=== PATIENT | female | born 2000 | race Caucasian/White ===

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

== ENCOUNTER → 2022-10-17 | Outpatient (CLI) | payer BC, SELFPAY ==
--- NOTE | 2022-10-17 16:37 | CT_ITS ---
STUDY: CT MAXILLOFACIAL SINUSES REASON FOR EXAM: Female, 21 years old. CHRONIC SINUSITIS RADIATION DOSAGE (If Supplied By Facility): CTDIvol = ( 33.06 ) mGy, DLP = ( 776.00 ) mGycm TECHNIQUE: The patient was scanned in a multi detector CT scanner. High resolution axial imaging was performed without the administration of intravenous contrast material. Sagittal and coronal images were reconstructed. Individualized dose optimization techniques were used for this CT. COMPARISON: None. FINDINGS: FRONTAL SINUSES: Normal aeration, without mucosal inflammatory disease. ETHMOIDAL SINUSES: Normal aeration, without mucosal inflammatory disease. MAXILLARY SINUSES: Minimal mucosal thickening of the maxillary sinuses bilaterally. SPHENOIDAL SINUSES: Normal aeration, without mucosal inflammatory disease. There is patency of the bilateral maxillary infundibuli with normal uncinate processes, ethmoid bullae, and hiatus semilunaris. Normal bilateral middle turbinates. Normal bilateral inferior turbinates. There is a right sided nasal septal deviation, but without a nasal septal spur. There is patency of the bilateral nasal airways. The visualized osseous structures are normal. The visualized bilateral orbital contents are normal. CT/Sinus/Facial Bone IMPRESSION: Minimal mucosal thickening of the maxillary sinuses bilaterally. Nasal septal deviation towards the right side of the midline. Electronically Signed: Yrn Paredes MD at 12:32 EDT ,
== END | disposition home or self-care (01) ==
LOC: CT 16:36
PROVIDERS: PCP Physician Assistant; Referring Provider Otolaryngology; Visit Provider Otolaryngology
DX: J32.9 Chronic sinusitis, unspecified (principal)
CPT/HCPCS: 70486

== ENCOUNTER → 2024-11-19 | Outpatient (CLI) | payer SELFPAY ==
[2024-11-19 12:12] LABS: Absolute Lymphocyte Count 1.42 X10^3/uL (0.83-4.51); Absolute Neutrophil Count 5.9 X10^3/uL (2.0-7.7); Basophil# 0.03 X10^3/uL; Basophil% 0.4 % (0-1); Eosinophil# 0.06 X10^3/uL; Eosinophils% 0.7 % (0-5); Hematocrit 38.9 % (37-47); Hemoglobin 13.7 g/dL (12.0-15.0); Lymphocyte # 1.42 X10^3/ul (0.83-4.51); Lymphocyte % 17.2 % (19-41); Mean Corp Hgb Conc 35.2 g/dL (32-36); Mean Corpuscular Hgb 30.5 pg (27.0-32.0); Mean Corpuscular Volume 86.6 fL (81-99); Mean Platelet Vol. 9.4 fl (6.2-12.0); Monocyte# 0.83 X10^3/uL; NRBC Flagged by Analyzer 0 % (0-5); Neutrophil # 5.89 X10^3/uL (2.7-7.7); Neutrophil % 71.3 % (47-70); Platelet Count 355 K/mm3 (150-450); RBC Distribution Width CV 12.2 % (11.6-14.6); RBC Distribution Width SD 38.7 fl (35.1-43.9); Red Blood Count 4.49 M/mm3 (4.2-5.4); White Blood Count 8.3 K/mm3 (4.4-11.0)
[2024-11-19 12:37] LABS: HIV Nonreactive (Nonreactive); Hepatitis B Surface Antigen Nonreactive (Nonreactive); Hepatitis C Antibody Nonreactive (Nonreactive); Rubella IgG REAC (Nonreactive); Syphilis Antibodies Nonreactive (Nonreactive)
[2024-11-21 10:08] LABS: Chlamydia By Nucleic Acid AMP Negative (Negative); Gonococcus By Nucleic Acid AMP Negative (Negative)
== END | disposition home or self-care (01) ==
PROVIDERS: Nurse Practitioner Women's Health; PCP Physician Assistant; Referring Provider Advanced Practice Midwife; Visit Provider Advanced Practice Midwife
DX: O99.280 Endocrine, nutritional and metabolic diseases complicating pregnancy, unspecified trimester (principal); E06.3 Autoimmune thyroiditis; Z3A.00 Weeks of gestation of pregnancy not specified
CPT/HCPCS: 36415; 84439; 84443; 85025; 86703; 86762; 86780; 86803; 86850; 86900; 86901; 87086; 87088; 87340; 87491; 87591

== ENCOUNTER → 2024-12-21 | Outpatient (CLI) | payer MEDICAID, SELFPAY ==
[2024-12-21 18:18] LABS: Thyroid Stim Hormone (TSH) 0.814 uIU/mL (0.300-4.200)
== END | disposition home or self-care (01) ==
LOC: LAB 15:53
PROVIDERS: PCP Physician Assistant; Referring Provider Advanced Practice Midwife; Visit Provider Advanced Practice Midwife
DX: E06.3 Autoimmune thyroiditis (principal)
CPT/HCPCS: 36415; 84443

== ENCOUNTER 2024-12-23 11:39 | Outpatient (CLI) | payer MEDICAID, SELFPAY ==
[2024-12-23] MEDS: Ondansetron 4 MG/2 ML Vial IV (12:04)
[2024-12-23] MEDS: 0.9% NaCl Peripheral Flush Adult IV (12:04)
[2024-12-23] MEDS: Dextrose 5%-Lactated Ringers 1,000 ML 999 ML IV (12:08)
[2024-12-23 12:09] VITALS: BP 133/87; PULSE 95; RESP 16; TEMP 35.7; O2SAT 98; BMI 27.4
[2024-12-23 13:20] VITALS: BP 125/65; PULSE 73; RESP 16; TEMP 35.9
--- OUTSIDE RECORDS SUMMARY | 2024-12-23 20:54 | XMS RPT_ITS | CCD ---
Author Organization [facility] Care Team Providers Care Spirits Model Name Role Phone ÁNGELA FERMIN Unavailable Unavailable HILLS, ÁNGELA Unavailable Unavailable JENY, ÁNGELA Unavailable Unavailable ANNA MARIE SALES Admitting Unavailable ANNA MARIE SALES Attending Unavailable ANNA MARIE SALES Primary Care Unavailable JENY, ÁNGELA Consulting Unavailable PROVIDER, UNKNOWN Consulting Unavailable NATALIA LIANG Admitting Unavailable NATALIA LIANG Attending Unavailable NATALIA LIANG Primary Care Unavailable JENY, ÁNGELA Consulting Unavailable PROVIDER, UNKNOWN Consulting Unavailable Anna Marie Sales PA-C Unavailable Anna Marie Sales PA-C Unavailable Dr. Oj Ordonez MD Unavailable [phone] Dermatology Provider Unavailable Unavailable Dr. Natalia Liang MD. Unavailable ENT Provider Unavailable Unavailable Ady SMITH, Dr. Pablo Nielsen Unavailable Lloyd Pulido MD Unavailable Elisa REINOSO, Kristin Unavailable Farshad Bustamante MD Unavailable Maya Maxwell MA Unavailable Unavailable Gogoi (scribe), Hemanta Unavailable Unavaila ble Irene Espinoza LPN Unavailable Unavailable Jeny MARTINEZ, Ángela D Unavailable [phone] Rich MARTINEZ, Frederic Noland Unavailable Abrahan REINOSO, Sandra Unavailable Unavailable Mandi Maldonado RN Unavailable Marine LUNA, Conchita Bazzi Unavailable Unavailable Lacy APPLICATION DBA, Lloyd Ramirez Unavailable Unavailab Sandra Dewey MA Unavailable Unavailable Vess APPLICATION DBA, Jaziel Dawn Unavailable Unavailable Wengerchery BRADYN, Rita Unavailable Unavailabl e Unavailable Unavailable Unavailable Unavailable Unavailable Primary Care Provider Unavailabl ELIJAH Patrick Attending Unavailable ELIJAH LYMAN Referring Unavailable ELIJAH LYMAN Attending Unavailable Madina Jules LPN Unavailable Unavailabl e Sales PATRICIA, Anna Marie Primary Care Provider Henrry PA, Anna Marie Referring Provider [phone] Priscila FELIPE-CMechelle Attending Provider Vlad HIGGINS, Bety Attending Provider Bety Chu CNM Referring Provider [phone] Sales PATRICIA, Anna Marie Referring Unavailable Sales PA, Anna Marie Primary Care Unavailable Bety Chu Attending Unavailable Sales PA, Anna Marie Attending Unavailable Sales PA, Anna Marie Primary Care Unavailable Sales PA, Anna Marie Primary Care Unavailable Sales PA, Anna Marie Referring Unavailable Mechelle Francois NP Attending Unavailable Bety Chu Attending Unavailable Sales PA, Anna Marie Primary Care Unavailable Bety Chu Referring Unavailable Bety Chu Referring Unavailable Bety Chu Attending Unavailable Sales PA, Anna Marie Primary Care Unavailable Bety Chu Referring Unavailable Sales PA, Anna Marie Primary Care Unavailable Bety Chu Attending Unavailable Sales PA, Anna Marie Primary Care Unavailable Bety Chu Attending Unavailable Sales PATRICIA, Anna Marie Referring Unavailable Medications Current Medications Medication Drug Class(es) Dates Sig (Normalized) Sig (Original) apremilast 30 mg oral tablet (13 sources) Otezla 30 mg tab let ; 1 daily (30 mg) cephalexin 500 mg oral capsule (2 sources) Cephalosporin Antibacterial Start: 12-16-2024 cephALEXin 500 mg capsule ; 1 (one) capsule TID for 7 days Quantity: 21 {Capsule} Refills: 0 Ordered: 16-Dec-2024 JUAN Sales Start: 16-Dec-2024 Comments: Pt is 11 weeks Comment on above: Pt is 11 weeks pregn ant cetirizine hydrochloride 10 mg oral tablet (20 sources) Histamine-1 Receptor Antagonist take 1 tablet by mouth once daily ZyrTEC Allergy 10 MG Oral Tablet ; 1 daily (10 MG) cholecalciferol 0.01 mg oral capsule (14 sources) Vitamin D Start: 11-03-2024 take 1 capsule by mouth once daily Cholecalciferol (Vitamin D3) 10 mcg (400 unit) capsule Active 20 ug PO daily November 03, 2024 12:00am Vitamin D3 25 mc g (1,000 unit) capsule ; 1 daily (25 mcg (1,000 uni) docosahexaenoic acid 200 mg oral capsule (1 source) Start: 11-03-2024 Docosahexaenoi c Acid ( Dha) 200 mg capsule Active mg PO November 03, 2024 12:00am levothyroxine sodium 0.025 mg oral tablet (20 sources) l-Thyroxine Start: 11-19-2024 Levothyroxine (Levo-T) 25 mcg tablet Active 50 ug PO daily November 19, 2024 8:56am Start: 11-03-2024 End: 11-19-2024 Levothyroxine (Levo-T) 25 mc g tablet Discontinued 25 ug PO daily November 03, 2024 12:00am November 19, 2024 8:56am Start: 07-13-2024 inject 1 capsule by subcutaneous injection once daily levothyroxine 50 mcg capsule ; 1 (one) Capsule daily for 0 days Quantity: 90 {Capsule} Refills: 1 Ordered: 13-Jul-2024 JUAN Villanueva Start: 13-Jul-2024 Comments: sub with tablets if cheaper Start: 07-09-2024 inject 1 capsule by subcutaneous injection once daily levothyroxine 50 mcg capsule ; 1 (one) Capsule daily for 0 days Quantity: 90 {Capsule} Refills: 1 Ordered: 09-Jul-2024 JUAN Sales Start: 09-Jul-2024 Comments: sub with tablets if cheaper Start: 10-08-2023 End: 06-12-2024 inject 1 capsule by subcutaneous injection once daily levothyroxine 50 mcg capsule ; 1 (one) Capsule daily for 0 days Quantity: 30 {Capsule} Refills: 0 Ordered: 12-Jun-2024 ARLETH Jules Start: 08-Oct-2023 End: 12-Jun-2024 Status: Inactive Comments: sub with tablets if cheaper Start: 04-01-2023 inject 1 capsule by subcutaneous injection once daily levothyroxine 50 mcg capsule ; 1 (one) Capsule daily for 0 days Quantity: 30 {Capsule} Refills: 5 Ordered: 01-Apr-2023 MD Farshad Bustamante Start: 01-Apr-2023 Comments: sub with tablets if cheaper Start: 12-08-2022 levothyroxine 100 mcg cap 12/08/2022 Active Comment on above: sub with tablets if cheaper loratadine 10 mg oral tablet (20 sources) Start: 016 take 1 tablet by mouth once daily Loratadine (Claritin) 10 MG tablet Active 10 mg PO DAILY November 05, 2015 12:00am ondansetron 4 mg disintegrating oral tablet (1 source) Serotonin-3 Receptor Antagonist Start: take 1 tablet by mouth every six hours as needed for nausea and vomiting Ondansetron 4 mg tablet,disintegratin g Active 4 mg PO EVERY 6 HOURS as needed for nausea and vomiting November 19, 2024 12:00am promethazine hydrochloride 25 mg rectal suppository (1 source) Phenothiazine Start: Promethazine 25 mg suppository Active 25 mg RC EVERY 4-6 HOURS as needed for nausea and vomiting December 21, 2024 3:27pm ruxolitinib (13 sources) ruxolitinib 1.5 % topical cream ; (1.5 %) triamcinolone acetonide 0.91227 mg/mg topical ointment (20 sources) Corticosteroid Start: End: triamcinolone (KENALOG) 0.025 % ointment Indications: Dyspareunia in female Apply to affected area two times a day. 15 g 03/30/2024 04/29/2024 Active Start: 12-08-2021 Triamcinolone Acetonide 0.1 % External Cream ; 1 (one) Application to affected areas TID prn for 0 days Quantity: 60 {Gram} Refills: 0 Ordered: 08-Dec-2021 ALEXA Longoria Start: 08-Dec-2021 Start: 11-13-2013 End: 02-09-2015 TRIAMCINOLONE ACETONIDE, 0.0 25% (External Cream) ; 1 (one) application(s) four times daily for 0 days Quantity: 80 {gram(s)} Refills: 0 Ordered: 09-Feb-2015 JEREMY Hawthorne Start: 13-Nov-2013 End: 09-Feb-2015 Status: Inactive vitamin b6 10 mg oral tablet (1 source) Start: 11-03-2024 take 1 tablet by mouth once daily Pyridoxine (Vitamin B6) 10 mg tablet Active 10 mg PO daily November 03, 2024 12:00am Completed/Discontinued Medications Medication Drug Class(es) Dates Sig (Normalized) Sig (Original) [id number] 200 actuat albuterol 0.09 mg/actuat metered dose inhaler (20 sources) beta2-Adrenergic Agonist Start: 04-04-2016 End: 10-18-2016 take 2 puff(s) by inhalation every four to six hours as needed Ventolin HFA 108 (90 Base) MCG/ACT Inhalation Aerosol Solution ; 2 (two) puff(s) puff(s) every 4-6hrs prn for 0 days Quantity: 1 {Inhaler} Refills: 1 Ordered: 18-Oct-2016 JEREMY Hawthorne Start: 04-Apr-2016 End: 18-Oct-2016 Status: Inactive amoxicillin 50 mg/ml oral suspension (20 sources) Penicillin-class Antibacterial Start: 04-30-2012 End: 05-10-2012 AMOXICILLIN, 250MG/5ML (Oral Suspension Reconstituted) ; 2 (two) Teaspoon(s) three times daily for 10 days Quantity: 300 {Milliliter} Refills: 0 Ordered: 30-Apr-2012 MD Farshad Bustamante Start: 30-Apr-2012 End: 10-May-2012 Status: Inactive Start: 07-07-2010 End: 07-17-2010 take 1 tablet by mouth three times daily AMOXICILLIN, 500MG (Oral Tablet) ; 1 Tab three times daily for 10 days Quantity: 30 {Tab} Refills: 0 Ordered: 06-Sep-2010 MD Farshad Bustamante Start: 07-Jul-2010 End: 17-Jul-2010 Status: Inactive amoxicillin 875 mg / clavulanate 125 mg oral tablet (20 sources) Penicillin-class Antibacterial Start: 07-31-2022 End: 08-07-2022 take 1 tablet by mouth twice daily Amoxicillin-Pot Clavulanate 875-125 MG Oral Tablet ; 1 (one) Tablet two times daily for 7 days Quantity: 14 {Tablet} Refills: 0 Ordered: 31-Jul-2022 JUAN Villanueva Start: 31-Jul-2022 End: 07-Aug-2022 Status: Inactive Start: 01-29-2022 End: 02-05-2022 take 1 tablet by mouth twice daily Amoxicillin-Pot Clavulanate 875-125 MG Oral Tablet ; 1 (one) Tablet twice a day for 7 days Quantity: 14 {Tablet} Refills: 0 Ordered: 29-Jan-2022 JUAN Villanueva Start: 29-Jan-2022 End: 05-Feb-2022 Status: Inactive Start: 08-18-2019 End: 08-28-2019 take 1 tablet by mouth twice daily at mealtime Amoxicillin-Pot Clavulanate 875-125 MG Oral Tablet ; 1 (one) Tablet twice daily with food for 10 days Quantity: 20 {Tablet} Refills: 0 Ordered: 18-Aug-2019 JUAN Fermin Start: 18-Aug-2019 End: 28-Aug-2019 Status: Inactive Start: 06-20-2018 End: 06-30-2018 take 1 tablet by mouth twice daily at mealtime Augmentin 875-125 MG Oral Tablet ; 1 Tab two times daily for 10 days Quantity: 20 {Tablet} Refills: 0 Ordered: 20-Jun-2018 JUAN Sales Start: 20-Jun-2018 End: 30-Jun-2018 Status: Inactive Comments: Take with food Start: 05-30-2011 End: 06-26-2011 AUGMENTIN, 250-62.5MG/5ML (O ral Suspension Reconstituted) ; 2 (two) teaspoon(s) BID for 10 days Quantity: 200 {Milliliter} Refills: 0 Ordered: 26-Jun-2011 ARLETH Nam Start: 30-May-2011 End: 26-Jun-2011 Status: Inactive Comment on above: Take with food azithromycin 500 mg oral tablet (20 sources) Macrolide Antimicrobial Start: 04-22-20 End: 04-25-20 take 1 tablet by mouth once daily Azithromycin 500 MG Oral Tablet ; 1 (one) Tablet daily for 3 days Quantity: 3 {Tablet} Refills: 0 Ordered: 22-Apr-2018 Start: 22-Apr-2018 End: 25-Apr-2018 Status: Inactive Start: 05-07-2012 End: 08-01-2012 ZITHROMAX, 200MG/5ML (Oral S uspension Reconstituted) ; 8 milliliters once on day one then 4 milliliters daily for 4 days for 0 days Quantity: 24 {Milliliter} Refills: 0 Ordered: 01-Aug-2012 JUAN Sales Start: 07-May-2012 End: 01-Aug-2012 Status: Inactive cefdinir 300 mg oral capsule (20 sources) Cephalosporin Antibacterial Start: 02-20-2021 End: 03-02-2021 take 1 capsule by mouth twice daily Cefdinir 300 MG Oral Capsule ; 1 (one) Capsule twice daily for 10 days Quantity: 20 {Capsule} Refills: 0 Ordered: 20-Feb-2021 JUAN Sales Start: 20-Feb-2021 End: 02-Mar-2021 Status: Inactive clobetasol propionate 0.0005 mg/mg topical ointment (2 sources) Corticosteroid Start: 03-30-2024 End: 03-30-2024 clobetasol (TEMOVATE) 0.05 % ointment Indications: Dyspareunia in female Apply 1 application to affected area once daily. 30 g 1 03/30/2024 03/30/2024 Discontinued doxycycline monohydrate 100 mg oral tablet (20 sources) Tetracycline-class Drug Start: 06-09-2021 End: 06-19-2021 take 1 tablet by mouth twice daily Doxycycline Monohydrate 100 MG Oral Tablet ; 1 (one) Tablet BID for 10 days Quantity: 20 {Tablet} Refills: 0 Ordered: 09-Jun-2021 JUAN Sales Start: 09-Jun-2021 End: 19-Jun-2021 Status: Inactive Ethinyl Estradiol / Levonorgestrel (20 sources) Progestin, Estrogen, Progestin-containing Intrauterine Device Start: 11-28-2022 End: 07-23-2023 Aviane 0.1 mg-20 mcg tablet ; 1 (one) Tablet daily for 0 days Quantity: 1 {Tablet} Refills: 11 Ordered: 23-Jul-2023 ARLETH Pérez Start: 28-Nov-2022 End: 23-Jul-2023 Status: Inactive Ethinyl Estradiol / norgestimate (20 sources) Progestin, Estrogen Start: 04-02-2024 End: 12-15-2024 Sprintec (28) 0.25 mg-0.035 mg tablet ; 1 (one) tablet daily for 0 days Quantity: 3 {Packet} Refills: 1 Ordered: 15-Dec-2024 Start: 02-Apr-2024 End: 15-Dec-2024 Status: Inactive Start: 04-02-2024 Sprintec (28) 0.25 mg-35 mcg tablet ; 1 (one) tablet daily for 0 days Quantity: 3 {Packet} Refills: 1 Ordered: 02-Apr-2024 JUAN Sales Start: 02-Apr-2024 Start: 10-17-2023 Sprintec (28) 0.25 mg-35 mcg tablet ; 1 (one) tablet daily for 0 days Quantity: 1 {Packet} Refills: 1 Ordered: 17-Oct-2023 MD Alex Stock Start: 17-Oct-2023 Start: 10-16-2023 Sprintec (28) 0.25 mg-35 mcg tablet ; 1 (one) tablet daily for 0 days Quantity: 1 {Packet} Refills: 2 Ordered: 16-Oct-2023 MD Alex Stock Start: 16-Oct-2023 Start: 10-16-2023 Sprintec (28) 0.25 mg-35 mcg tablet ; 1 (one) tablet daily for 0 days Quantity: 1 {Packet} Refills: 3 Ordered: 16-Oct-2023 MD Alex Stock Start: 16-Oct-2023 Start: 07-23-2023 Sprintec (28) 0.25 mg-35 mcg tablet ; 1 (one) tablet daily for 0 days Quantity: 1 {Packet} Refills: 3 Ordered: 23-Jul-2023 JUAN Sales Start: 23-Jul-2023 Start: 12-08-2022 norgestimate 0 .25 mg-ethinyl estradiol 35 mcg (STACI) 0.25-35 mg-mcg per tablet 12/08/2022 Active fluconazole 150 mg oral tablet (20 sources) Azole Antifungal Start: 06-09-2021 End: 12-08-2021 take 1 tablet by mouth once Diflucan 150 MG Oral Tablet ; 1 (one) Tablet one time dose for 0 days Quantity: 1 {Tablet} Refills: 0 Ordered: 08-Dec-2021 ARLETH House Start: 09-Jun-2021 End: 08-Dec-2021 Status: Inactive fluticasone propionate 0.05 mg/actuat metered dose nasal spray (20 sources) Corticosteroid Start: 11-06-2016 End: 01-28-2018 Fluticasone Propionate 50 MCG/ACT Nasal Suspension ; 2 (two) sprays each nostril twice daily fro 4 days, then use 2 sprays per nostril once daily for 0 days Quantity: 1 {Bottle} Refills: 11 Ordered: 28-Jan-2018 ARLETH Nam Start: 06-Nov-2016 End: 28-Jan-2018 Status: Inactive montelukast 10 mg oral tablet (20 sources) Leukotriene Receptor Antagonist Start: 08-05-2020 End: 06-12-2024 montelukast 10 mg tablet ; 1 (one) Tablet daily for 0 days Quantity: 30 {Tablet} Refills: 11 Ordered: 12-Jun-2024 ARLETH Jules Start: 05-Aug-2020 End: 12-Jun-2024 Status: Inactive predniSONE 10 mg oral tablet (20 sources) Start: 04-22-2018 End: 04-27-2018 take 1 tablet by mouth twice daily PredniSONE 10 MG Oral Tablet ; 1 (one) Tablet two times daily for 5 days Quantity: 10 {Tablet} Refills: 0 Ordered: 22-Apr-2018 Start: 22-Apr-2018 End: 27-Apr-2018 Status: Inactive Promethazine 25 mg suppository (1 source) Start: 12-11-2024 End: 12-21-2024 Promethazine 25 mg suppository Discontinued 25 mg RC EVERY 4-6 HOURS as needed for nausea and vomiting December 11, 2024 12:00am December 21, 2024 3:27pm sulfamethoxazole 800 mg / trimethoprim 160 mg oral tablet (20 sources) Dihydrofolate Reductase Inhibitor Antibacterial, Sulfonamide Antimicrobial Start: 06-08-2019 End: 06-11-2019 take 1 tablet by mouth twice daily Bactrim DS 800-160 MG Oral Tablet ; 1 (one) Tablet BID for 3 days Quantity: 6 {Tablet} Refills: 0 Ordered: 08-Jun-2019 JUAN Sales Start: 08-Jun-2019 End: 11-Jun-2019 Status: Inactive Problems Active Problems Problem Classification Problem Date Documented Da te Episodic/Chronic Abdominal pain (20 sources) Acute abdominal pain; Translations: [Unspecified abdominal pain] 08-18-2019 Episodic Acute bronchitis (20 sources) Acute bronchitis; Translations: [Acute bronchitis, unspecified] 11-13-2013 Episodic Administrative/social admission (20 sources) Issue of repeat prescriptions 04-25-2016 Episodic Allergic reactions (20 sources) Contact dermatitis; Translations: [Unspecified contact dermatitis, unspecified cause] Onset: 12-22-2024 11-13-2013 Episodic Comment on above: opzelura cream for b reak outs Asthma (20 sources) Allergic asthma; Translations: [Unspecified asthma, uncomplicated] 11-13-2013 Chronic Chronic obstructive pulmonary disease and bronchiectasis (20 sources) Bronchitis; Translations: [Bronchitis, not specified as acute or chronic] 11-13-2013 Episodic Disorders of teeth and jaw (1 source) Loss of teeth due to extraction; Translations: [Partial loss of teeth, unspecified cause, unspecified class] 11-03-2024 Episodic Comment on above: 2022 Genitourinary symptoms and ill-defined conditions (20 sources) Urinary symptoms ; Translations: [Unspecified symptoms and signs involving the genitourinary system] 08-18-2019 Episodic Headache; including migraine (20 sources) Headache; Translations: [Headache] 04-14-2018 Episodic Immunizations and screening for infectious disease (20 sources) Autoantibody titer positive; Translations: [Other specified abnormal immunological findings in serum] 12-05-2022 Episodic Intracranial injury (20 sources) Concussion injury of body structure; Translations: [Concussion without loss of consciousness, subsequent encounter] 04-14-2018 Episodic Lymphadenitis (20 sources) Cervical lymphadenopathy; Translations: [Localized enlarged lymph nodes] 08-18-2019 Episodic Malaise and fatigue (20 sources) Fatigue; Translations: [Other fatigue] 06-12-2024 Episodic Menstrual disorders (20 sources) Irregular periods; Translations: [Irregular menstruation, unspecified] 05-01-2023 Chronic Other acquired deformities (20 sources) Scoliosis deformity of spine; Translations: [Scoliosis, unspecified] 11-28-2022 Chronic Other aftercare (20 sources) Follow-up status; Translations: [Encounter for follow-up examination after completed treatment for conditions other than malignant neoplasm] 11-13-2013 Episodic Other complications of (4 sources) High risk ; Translations: [Supervision of high risk , unspecified, unspecified trimester] 12-21-2024 Episodic Comment on above: PRR, G1, JACI 5, : Desmond Other complications of (3 sources) Vomiting of , unspecified; Translations: [Nausea and vomiting during ] Onset: 12-22-2024 12-21-2024 Episodic Other complications of (1 source) Endocrine, nutritional and metabolic diseases complicating , unspecified trimester; Translations: [Endocrine, nutritional and metabolic diseases complicating , unspecified trimester] Onset: 11-22-2024 Episodic Other complications of (1 source) Supervision of high risk , unspecified, first trimester; Translations: [Supervision of high risk , unspecified, first trimester] Onset: 12-22-2024 Episodic Other connective tissue disease (20 sources) Pain in right hand; Translations: [Pain in right hand] 11-28-2022 Episodic Other female genital disorders (4 sources) Pain in female genitalia on intercourse; Translations: [Unspecified dyspareunia] 03-11-2024 Chronic Other female genital disorders (1 source) Unspecified dyspareunia; Translations: [Dyspareunia in female] Onset: 03-20-2024 Chronic Other gastrointestinal disorders (20 sources) Pale feces; Translations: [Other fecal abnormalities] 08-18-2019 Episodic Other lower respiratory disease (20 sources) Cough; Translations: [Cough] 11-13-2013 Episodic Other non-traumatic joint disorders (20 sources) Hand joint stiff; Translations: [Stiffness of unspecified hand, not elsewhere classified] 12-08-2021 Episodic Other nutritional; endocrine; and metabolic disorders (20 sources) Weight increased; Translations: [Abnormal weight gain] 06-12-2024 Episodic Other and delivery including normal (3 sources) ; Translations: [Encounter for supervision of normal , unspecified, unspecified trimester] 12-21-2024 Episodic Comment on above: Declined genetic/car rier testing Other screening for suspected conditions (not mental disorders or infectious disease) (20 sources) Raised TSH level; Translations: [Other specified abnormal findings of blood chemistry] 05-12-2023 Episodic Other skin disorders (20 sources) Folliculitis; Translations: [Follicular disorder, unspecified] 04-14-2018 Episodic Other skin disorders (20 sources) Eruption; Translations: [Rash and other nonspecific skin eruption] 04-15-2023 Episodic Other upper respiratory disease (20 sources) Allergic rhinitis; Translations: [Allergic rhinitis, unspecified] 08-18-2019 Chronic Other upper respiratory infections (20 sources) Sinusitis; Translations: [Chronic sinusitis, unspecified] 07-23-2023 Chronic Other upper respiratory infections (20 sources) Acute pharyngitis; Translations: [Acute pharyngitis, unspecified] 11-13-2013 Episodic Otitis media and related conditions (20 sources) Acute suppurative otitis media; Translations: [Acute suppurative otitis media without spontaneous rupture of ear drum, unspecified ear] 11-13-2013 Episodic Residual codes; unclassified (20 sources) Finding of body mass index; Translations: [Body mass index (BMI) pediatric, 5th percentile to less than 85th percentile for age] 08-18-2019 Episodic Residual codes; unclassified (1 source) 12 weeks gestation of ; Translations: [12 weeks gestation of ] Onset: 12-21-2024 Episodic Residual codes; unclassified (1 source) 9 weeks gestation of ; Translations: [9 weeks gestation of ] Onset: 12-22-2024 Episodic Screening and history of mental health and substance abuse codes (20 sources) Patient encounter status; Translations: [Encounter for screening for depression] 12-08-2021 Episodic Skin and subcutaneous tissue infections (4 sources) Abscess; Translations: [Cutaneous abscess, unspecified] 12-16-2024 Episodic Sprains and strains (20 sources) Other specified sites of sprains and strains 04-14-2018 Episodic Thyroid disorders (20 sources) Nontoxic goiter, unspecified; Translations: [Goiter] Onset: 01-28-2018 04-14-2018 Chronic Comment on above: on Levo - Thyroid la bs ordered w/NOB Unclassified (20 sources) UTI - Symptoms include dysuria, urinary frequency, urinary urgency and abdominal pain, but do not include hematuria. The pain is located in the suprapubic area. The patient describes the pain as aching. Onset was sudden 1 day(s) ago. The symptoms occur constantly. The patient describes this as moderate in severity and unchanged. Associated symptoms include nausea and urinary retention, but do not include fever or chills. Note for UTI: No previous history of UTIs.Not sexually active. Period due in 8 days. 06-08-2019 Viral infection (20 sources) Unspecified viral infection 11-13-2013 Episodic Past or Other Problems Problem Classification Problem Date Documented Da te Episodic/Chronic Otitis media and related conditions (20 sources) Otitis media and related conditions 05-07-2012 Unclassified (20 sources) Well adult female - The patient feels well with minor complaints (irregular periods), has good energy level and is sleeping well. The first day of the last menstrual period was : (11/10/2022). The patient is not using any method of contraception at this time. The patient has a balanced diet and takes supplemental vitamins. The patient exercises weekly. The patient sleeps 7 hours per night. Note for Well adult female: Pt wants to start OCP due to irregular periods (27-30 days typically but occasionally will go longer to 35-42 days) and she is getting in a year. Bleeding is usually 3-5 days and pretty light. Does have some severe menstrual cramping at times too.Hit 5th digit/hand (ulnar side) on boyfriend's knee 2 months ago; still having intermittent pain with certain movements. Had some swelling right away but that resolved with ice application. 11-28-2022 Unclassified (20 sources) Cold Symptoms - Symptoms include sneezing, nasal congestion, runny nose, ear pain (left ear), scratchy throat, dry cough, general malaise (pt has been extra tired) and facial pain, but do not include wheezing, fever or headache. The onset was 5 day(s) ago. The patient describes this as moderate in severity and unchanged. Current treatment includes non-prescription cold medication. The patient has been exposed to an individual with a cough, an individual with an upper respiratory infection, an individual with similar symptoms, an individual with strep and secondhand smoke. Medical history includes seasonal allergies, recurrent sinusitis, tonsillectomy and recurrent ear infections, but patient denies history of recurrent strep pharyngitis or asthma. 07-31-2022 Unclassified (20 sources) Cold Symptoms - Symptoms include nasal congestion, runny nose, sore throat and dry cough, but do not include ear pain, fever, chills or headache. The onset was 1 week(s) ago. The patient describes this as worsening. Current treatment includes an oral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 disturb others). Pt reports that she listened to the feedback from teacher and has changed her behavior. Part of it could be the teacher and her higher expectations than last year. Currently in 4th grade at [employer]. 09-07-2010 Unclassified (20 sources) Cough - Mom states that pt started in 3 days ago with cough, congestion, watery eyes. No s/t or ear pain. Low grade fever. COughing up some yellowish green sputum and chest hursts a little when she coughs. Had these similiar symptoms over Thanksgiving but seemed to get over it on her own but since back again mom wanted checked. 07-07-2010 Unclassified (9 sources) Menstrual problems - The menstrual problems are characterized as intermenstrual bleeding (Bled last saturday until saturday morning and then it stopped; it started again at school today. Usually she is regular. First menstrual period was in the 7th grade. Mom said that she was wondering if it was from taking so much flonase - said she thought she read it was a side effect.). Note for Menstrual problems: No stress right now but is busy right now with college visits - ACT/college. 06-22-2018 Unclassified (9 sources) [ADDITIONAL REASON] Cold Symptoms - Symptoms include runny nose, sore throat (Irritated, not sore. Swollen lymph nodes on the right.) and headache, but do not include nasal congestion, ear pain, dry cough, productive cough, fever, chills, general malaise or facial pain. The onset was gradual. The symptoms occur constantly. The patient describes this as moderate in severity and worsening (headache now). Current treatment includes allergy medications, an oral decongestant and a decongestant nasal spray. The patient has not been exposed to an individual with similar symptoms. Medical history includes seasonal allergies, recurrent sinusitis and recurrent ear infections, but patient denies history of recurrent strep pharyngitis, asthma or tonsillectomy. Note for Upper respiratory infection: Taking sudafed x a few days and a 12 hour cold med. Trouble sleeping - feels tired but is wide awake/tosses/turns. Took melatonin but only slept x 2 hours. 06-22-2018 Unclassified (9 sources) Transition into care - The patient is transitioning into care from an emergency room and a summary of care was reviewed . 11-07-2015 Unclassified (9 sources) [ADDITIONAL REASON] Follow up consultation - The patient is here to follow-up after Emergency Room/Urgent Care (Patient was seen on 11/05/2015 at [facility] with Dr. Dick for a concussion with out loss of consciousness. Patient fell onto concrete from a standing position. No xrays or MRI's were preformed at the ER. Patient is here today following up with PCP. Is having headaches frequently. Taking Tylenol to help relieve the headache. Is having neck pain, noticed having a spasm of the posterior neck and back of head. Has some sensitivity to loud noises and bright light (wearing sunglasses outside). Some dizziness, no spinning of the environment. Has had an upset stomach, but no nausea or vomiting. No vision changes. Did sustain a mild concussion about 8 months ago while playing soccer. ). 11-07-2015 Unclassified (1 source) Well adult female - The patient feels well with minor complaints (recent ear infection, fatigue, weight robert, hot flashes). The first day of the last menstrual period was : (06/01/24). The current method of contraception is: oral contraceptives. The patient has a balanced diet. The patient exercises weekly. The patient sleeps 8 hours per night. The patient's libido is normal. Note for Well adult female: Declines flu vaccine today. 06-12-2024 Unclassified (12 sources) Well adult female - The patient feels well with minor complaints (recent ear infection, fatigue, weight robert, hot flashes). The first day of the last menstrual period was : (06/01/24). The current method of contraception is: oral contraceptives. The patient has a balanced diet. The patient exercises weekly. The patient sleeps 8 hours per night. The patient's libido is normal. Note for Well adult female: Declines flu vaccine today.At wedding she was same weight as last year but from that time to when she saw COSMETIC SALES ASSISTANT in [place] it was higher. Hot flashes are more in the evenings - cheeks are bright red and warm and then rest of body can do that.Saw COSMETIC SALES ASSISTANT for pain with intercourse - some improvement with cream. No abnormalities noted on US.Fatigue is described as low energy. Diet hasn't changed but isn't exercising.Just finished augmentin for an ear infection. 2 weeks ago - areola was really sore but now is normal. This would have been right before her period started. No discharge from the nipple and no lumps. Resolved on own.Feels OCP is controlling periods well. 06-12-2024 Unclassified (2 sources) Skin ulcer/open sore - Symptoms include drainage. Symptoms are located on the right lower extremity (inner thigh). Onset was gradual 2 week(s) ago. There is no known event that preceded symptom onset. The patient describes this as moderate in severity and unchanged. Associated symptoms include pain. Note for Skin ulceration: Pt is 11 weeks .Possible drainage at one point. Doesn't seem to be as painful but since still present she thought she should get it checked.No fever.Has been applying neosporin. 12-16-2024 Results Test Name Value Interpretation Reference Range Facil ity Carton Filling Machine Operator Office Visit Reporton 12-21-2024 Carton Filling Machine Operator Office Visit Report [facility] [address] [place] [address], [address] [place] [address] OFFICE VISIT Date of Service: 12/21/24 MR#: [id number] Acct: [id number] Name: CHERY MCKEON Rep #: [id number] : 2000 Provider: GISELA Franks ams Age/Sex: 24/F Location: [facility] Status: Signed Intake Vital Signs 11/05/15 16:09 11/19/24 08:43 12/21/24 15:20 Height 5 ft 5 in 5 ft 5 in 5 ft 5 in Weight: 170 lb 6 oz 165 lb BMI 28.3 27.4 BP 130/86 H 126/86 H Intake Visit Reasons: 12wk ob 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 Is patient in pain?: No Allergies No Known Allergies Allergy (Verified 12/21/24 15:18) Medications ???Medication ???Instructions ???Recorded ???Confirmed ???Type loratadine 10 mg tablet (Allergy 10 mg PO DAILY 11/05/15 12/21/24 H istory Relief (loratadine)) cholecalciferol (vitamin D3) 10 20 mcg PO QDAY 11/03/24 12/21/24 H istory mcg (400 unit) capsule docosahexaenoic acid 200 mg mg PO 11/03/24 12/21/24 History capsule ( DHA) pyridoxine (vitamin B6) 10 mg 10 mg PO QDAY 11/03/24 12/21/24 Hi story tablet levothyroxine 25 mcg tablet 50 mcg PO QDAY 11/19/24 12/21/24 H istory (Levo-T) ondansetron 4 mg disintegrating 4 mg PO Q6H PRN nausea and 5 12/21/24 Rx tablet vomiting #90 tabs promethazine 25 mg rectal 25 mg AL Q4-6H PRN nausea and 09/1512/21/24 Rx suppository vomiting #12 ea Last Menstrual Period: 09/16/24 PFSH PFSH Surgical History [place] teeth removed S/P cholecystectomy Family History Grandfather Prostate cancer Grandmother Colon cancer CVA (cerebral vascular accident) Grandmother Dementia Father Diabetes Myocardial infarction Skin cancer Mother Heart disease Thyroid disorder Social History adopted: No household members: spouse housing: house current occupational status: employed current occupation: [employer] current occupational exposures/hazards: No pets and animals: No history of recent travel: Yes ([place] September 2024, [place] August 2024) out of state: Yes out of country: No sexually active: No Smoking Status: Never smoker alcohol intake: current alcohol intake frequency: holidays/special occasions only details: Not while substance use type: does not use well-balanced diet: daily or most days caffeine: Yes Type: coffee eating out: 1-3 times/week during the past year weight has: increased > 10 lbs what type of physical activity do you participate in: walking frequency: 1-2 times per week duration: 15-30 minutes/day guy/scientology: Jew seatbelt use: always do you feel safe at home: Yes 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 OB Visit JACI Calculator Estimated Delivery Date Method Current WG Current Estimate 07/01/25 Ultrasound #1 12w 4d Other Estimates 06/23/25 LMP (Certain) 13w 5d Expected Delivery Route/Plan Labor Preferences- CB/BF classes: [] labor support person: [] labor intervention preferences: [] pain management options preferred: [] cut cord/dad catch: [] : [] PP control planned: [] discussed possible routes of delivery and associated risks: [] special requests: [] Specific Issue/Plans Covid status: [] Flu vaccine: [] Tdap vaccine: [] Rhogam: [] LARC form signed: [] Problem list reviewed and updated with the most current plan of care details and appropriate orders placed. Relevant counseling for the gestational age provided. Continue routine care and follow up unless otherwise noted in visit notes/problem list details Initial Weight: 170 lb Date -???-???-???-???-? ??-???-???-???-??? -???-???-???- EGA Weight BP Urine Prot -???-???-???-???-? ??-???-???-???-??? -???-???-???- Glucose FHR FuHt Pres Dilation -???-???-???-???-? ??-???-???-???-??? -???-???-???- Effaced St Visit Note 11/19/24 -???-???-???-???-? ??-???-???-???-??? -???-???-???- 8w 0d 170 lb 6 oz (+6 oz) 130/86 -???-???-???-???-? ??-???-???-???-??? -???-???-???- 167 -???-???-???-???-? ??-???-???-???-??? -???-???-???- KW- CRL not cons with dates. JACI changed. declines NIPT. PAP done with [facility] reports normal. 12/21/24 -???-???-???-???-? ??-???-???-???-??? -???-???-???- 12w 4d 165 lb (-5 lb) 126/86 -???-???-???-???-? ??-???-???-???-??? -???-???-???- 1 (more content not included)... Normal [facility] Thyroid Stim Hormone (TSH)on 12-21-2024 TSH 0.814 uIU/mL Normal 0.300-4.200 [facility] Comment on above: Performed By: #### L 501.9520 #### [facility] [place], [address] L3410.9992on 11-26-2024 [facility] Misc. COMMENT Normal . [facility] Comment on above: Order Comment: [id number] 8TSH R AB SERUM FZ Result Comment: Test Ordered: [id number] TSH Receptor Antibody (TBII) TSH Receptor Antibody (TBII) <0.3 U/L Reference Range: . Reference Range: Antibody Titer: <1.0 U/L = Negative 1.1 - 1.5 U/L = Equivocal >1.5 U/L = Positive Performed at: [facility] [address] [place] [id number] [employer] Cage Cashier: Jeronimo Holden MD, Phone: [phone] Performed at: [address] [id number] [employer] Cashier: Sandeep Bae PhD, Phone: [phone] Performed By: #### L 3890.6006, L3890.6102, L501.9520, L3410.9992, BTS, L3890.6301, L100.0100, L509.8002, L509.4006, L506.0400 ####[facility] [address] [place], [address] Chlamydia/GC ANIRUDH aptimaon CHLAMY,NUC ACID Negative Normal Negative [facility] Comment on above: Performed By: #### L 7000.1800, M100.2200 #### [facility] [address] [place], [address] GC BY NUC ACID Negative Normal Negative [facility] Comment on above: Result Comment: Perf ormed at: =G - [facility] [id number] [employer] Cashier: Alina Arreola MD, Phone: [phone] Performed By: #### L 7000.1800, M100.2200 #### [facility] [address] [place], [address] Urine Cultureon 11-21-2024 URC #1, 2 Below infection level. GPC Poss Enterococcus sp [place] Count <1000 Mixed Gram Positive Organisms Mixed Gram Positive Organisms MIXC Mixed contaminants. Submit a new specimen if indicated. Normal [facility] Comment on above: Performed By: #### L 7000.1800, M100.2200 #### [facility] [address] [facility] [place], [address] Absolute lymphocyte countOrd ered By: Mechelle Louisetings on 11-19-2024 Lymphocytes Auto (Unsp spec) [#/Vol] 1.42 10*3/uL 0.83-4.51 [facility] Absolute neutrophil countOrd ered By: Mechelle Priscila on 11-19-2024 Neutrophils (Bld) [#/Vol] 5.9 10*3/uL 2.0-7.7 [facility] Automated lymphocyte count a s percentage of total leukocytesOrdered By: Mechelle Diegos on 11-19-2024 Lymphocytes/100 WBC Auto (Unsp spec) 17.2 % Low 19-41 [facility] Basophil percentageOrdered B y: Mechelle Diegos on 11-19-2024 Basophils/100 WBC (Bld) 0.4 % 0-[address] [facility] CBC W/Diff, Automatedon 050 Absolute Lymph 1.42 X10 3/uL Normal 0.83-4.51 [facility] Comment on above: Performed By: #### L 3890.6006, L3890.6102, L501.9520, L3410.9992, BTS, L3890.6301, L100.0100, L509.8002, L509.4006, L506.0400 #### [facility] [address] [place], [address] Absolute Neut 5.9 X10 3/uL Normal 2.0-7.7 [facility] Comment on above: Performed By: #### L 3890.6006, L3890.6102, L501.9520, L3410.9992, BTS, L3890.6301, L100.0100, L509.8002, L509.4006, L506.0400 #### [facility] [address] [facility] [place], [address] Basophils/100 WBC (Bld) 0.4 % Normal 0-[address] [facility] Comment on above: Performed By: #### L 3890.6006, L3890.6102, L501.9520, L3410.9992, BTS, L3890.6301, L100.0100, L509.8002, L509.4006, L506.0400 #### [facility] [address] [facility] [place], [address] Eosinophils/100 WBC (Bld) 0.7 % Normal 0-5 [facility] Comment on above: Performed By: #### L 3890.6006, L3890.6102, L501.9520, L3410.9992, BTS, L3890.6301, L100.0100, L509.8002, L509.4006, L506.0400 #### [facility] [address] [facility] [place], [address] Erythrocyte distribution width (RBC) [Ratio] 12.2 % Normal 11.6-14.6 [facility] Comment on above: Performed By: #### L 3890.6006, L3890.6102, L501.9520, L3410.9992, BTS, L3890.6301, L100.0100, L509.8002, L509.4006, L506.0400 #### [facility] [address] [facility] [place], [address] Hematocrit (Bld) [Volume fraction] 38.9 % Normal 37-47 [facility] Comment on above: Performed By: #### L 3890.6006, L3890.6102, L501.9520, L3410.9992, BTS, L3890.6301, L100.0100, L509.8002, L509.4006, L506.0400 #### [facility] [address] [facility] [place], [address] Hemoglobin (Bld) [Mass/Vol] 13.7 g/dL Normal 12.0-15.0 [facility] Comment on above: Performed By: #### L 3890.6006, L3890.6102, L501.9520, L3410.9992, BTS, L3890.6301, L100.0100, L509.8002, L509.4006, L506.0400 #### [facility] [address] [place], [address] IG% 0.400 Normal 0.0-0.9 [facility] Comment on above: Result Comment: IG% - Immature Granulocytes (promyelocytes, myelocytes and metamyelocytes) > 1% indicates that a LEFT SHIFT is Present. Performed By: #### L 3890.6006, L3890.6102, L501.9520, L3410.9992, BTS, L3890.6301, L100.0100, L509.8002, L509.4006, L506.0400 #### [facility] [address] [place], [address] Lymphocytes/100 WBC (Bld) 17.2 % Low 19-41 [facility] Comment on above: Performed By: #### L 3890.6006, L3890.6102, L501.9520, L3410.9992, BTS, L3890.6301, L100.0100, L509.8002, L509.4006, L506.0400 #### [facility] [address] [place], [address] MCH (RBC) [Entitic mass] 30.5 pg Normal 27.0-32.0 [facility] Comment on above: Performed By: #### L 3890.6006, L3890.6102, L501.9520, L3410.9992, BTS, L3890.6301, L100.0100, L509.8002, L509.4006, L506.0400 #### [facility] [address] [place], [address] MCHC (RBC) [Mass/Vol] 35.2 g/dL Normal 32-36 [facility] Comment on above: Performed By: #### L 3890.6006, L3890.6102, L501.9520, L3410.9992, BTS, L3890.6301, L100.0100, L509.8002, L509.4006, L506.0400 #### [facility] [address] [place], [address] MCV (RBC) [Entitic vol] 86.6 fL Normal 81-99 [facility] Comment on above: Performed By: #### L 3890.6006, L3890.6102, L501.9520, L3410.9992, BTS, L3890.6301, L100.0100, L509.8002, L509.4006, L506.0400 #### [facility] [address] [place], [address] Monocytes/100 WBC (Bld) 10.0 % Normal 0-10 [facility] Comment on above: Performed By: #### L 3890.6006, L3890.6102, L501.9520, L3410.9992, BTS, L3890.6301, L100.0100, L509.8002, L509.4006, L506.0400 #### [facility] [address] [place], [address] Neutrophils/100 WBC (Bld) 71.3 % High 47-70 [facility] Comment on above: Performed By: #### L 3890.6006, L3890.6102, L501.9520, L3410.9992, BTS, L3890.6301, L100.0100, L509.8002, L509.4006, L506.0400 #### [facility] [address] [place], [address] Nucleated RBC (Bld) [#/Vol] 0 10*3/uL Normal 0-5 [facility] Comment on above: Performed By: #### L 3890.6006, L3890.6102, L501.9520, L3410.9992, BTS, L3890.6301, L100.0100, L509.8002, L509.4006, L506.0400 #### [facility] [address] [place], [address] Platelet mean volume (Bld) [Entitic vol] 9.4 fL Normal 6.2-12.0 [facility] Comment on above: Performed By: #### L 3890.6006, L3890.6102, L501.9520, L3410.9992, BTS, L3890.6301, L100.0100, L509.8002, L509.4006, L506.0400 #### [facility] [address] [place], [address] Platelets (Bld) [#/Vol] 355 10*3/uL Normal 150-450 [facility] Comment on above: Performed By: #### L 3890.6006, L3890.6102, L501.9520, L3410.9992, BTS, L3890.6301, L100.0100, L509.8002, L509.4006, L506.0400 #### [facility] [address] [place], [address] RBC (Bld) [#/Vol] 4.49 10*6/uL Normal 4.2-5.4 [facility] Comment on above: Performed By: #### L 3890.6006, L3890.6102, L501.9520, L3410.9992, BTS, L3890.6301, L100.0100, L509.8002, L509.4006, L506.0400 #### [facility] [address] [place], [place], [id number] (085) RDW SD 38.7 fl Normal 35.1-43.9 [facility] Comment on above: Performed By: #### L 3890.6006, L3890.6102, L501.9520, L3410.9992, BTS, L3890.6301, L100.0100, L509.8002, L509.4006, L506.0400 #### [facility] [address] [place], [place], [address] WBC (Bld) [#/Vol] 8.3 10*3/uL Normal 4.4-11.0 [facility] Comment on above: Performed By: #### L 3890.6006, L3890.6102, L501.9520, L3410.9992, BTS, L3890.6301, L100.0100, L509.8002, L509.4006, L506.0400 #### [facility] [address] [place], [place], [id number] Chlamydia trachomatis rRNA d etection by probe and target amplification methodOrdered By: Mechelle Francois on 11-19-2024 C. trachomatis rRNA ANIRUDH+probe Ql (Unsp spec) Negative Negative [facility] Eosinophil percentageOrdered By: Mechelle Francois on 11-19-2024 Eosinophils/100 WBC (Bld) 0.7 % 0-5 [facility] Erythrocyte distribution wid th ratioOrdered By: Mechelle Francois on 11-19-2024 Erythrocyte distribution width (RBC) [Ratio] 12.2 % 11.6-14.6 [facility] Erythrocyte distribution wid th standard deviationOrdered By: Mechelle Francois on 11-19-2024 Erythrocyte distribution width (RBC) [Ratio] 38.7 fl 35.1-43.9 [facility] HIVon 11-19-2024 HIV Non-Reactive Normal Nonreactive [facility] Comment on above: Result Comment: Non- Reactive Reactive Repeatedly reactive samples must be confirmed according to CDC recommended confirmatory algorithms. The subresults for either HIVAG or AHIV can be used as an aid in the selection of the confirmation algorithm for reactive samples. Send out specimens with Reactive results to [facility] for confirmation. Order the HIV antibody detection and differentiation: [id number] Performed By: #### L 3890.6006, L3890.6102, L501.9520, L3410.9992, BTS, L3890.6301, L100.0100, L509.8002, L509.4006, L506.0400 ####[facility] [address] [place], [place], [address] Hematocrit Auto (Bld) [Volum e fraction]Ordered By: Mechelle Francois on 11-19-2024 Hematocrit (Bld) [Volume fraction] 38.9 % 37-47 [facility] Hemoglobin measurementOrdere d By: Mechelle Francois on 11-19-2024 Hemoglobin (Bld) [Mass/Vol] 13.7 g/dL 12.0-15.0 [facility] Hepatitis C Antibodyon 11-19 Hepatitis C Ab Non-Reactive Normal Nonreactive [facility] Comment on above: Result Comment: Reac tive: Presumptive evidence of antibodies to HCV. Follow CDC recommendations for supplemental testing. Non-Reactive: Antibodies to HCV were not detected; does not exclude the possibility of exposure to HCV Reactive Results are presumptive evidence of antibodies to HCV. Follow CDC recommendations for supplemental testing. Order confirmation testing: HCV Quant by PCR testing - HCVPCR #[id number] Non Reactive: < 0.8 Equivocal: >/= 0.8 to < 1.0 Reactive: >/= 1.0 The CDC requires that a reactive/equivocal HCV antibody result be sent out for confirmation. HCV Quant by PCR testing. Performed By: #### L 3890.6006, L3890.6102, L501.9520, L3410.9992, BTS, L3890.6301, L100.0100, L509.8002, L509.4006, L506.0400 ####[facility] [address] [place], [place], [id number] Immature granulocytes/100 WB C Auto (Bld)Ordered By: Mechelle Francois on 11-19-2024 Immature granulocytes/100 WBC (Bld) 0.400 % 0.0-0.9 [facility] Comment on above: IG% - Immature Granu locytes (promyelocytes, myelocytes and metamyelocytes) > 1% indicates that a LEFT SHIFT is Present. L3890.6102on 11-19-2024 HEP B Surf Ag Non-Reactive Normal Nonreactive [facility] Comment on above: Result Comment: Reac tive: Presumptive evidence of HBV. Repeatedly reactive samples must be confirmed using a neutralization test ([employer] HBsAg Confirmatory Test) Non-Reactive: HBsAg not detected; does not exclude the possibility of exposure to HBV Performed By: #### L 3890.6006, L3890.6102, L501.9520, L3410.9992, BTS, L3890.6301, L100.0100, L509.8002, L509.4006, L506.0400 ####[facility] [address] [facility] [place], [place], [id number] L509.4006on 11-19-2024 Rubella IgG REAC Normal [facility]active [facility] Comment on above: Result Comment: Anti body Result: Interpretation Non-Reactive: Non-Immune Reactive: Immune The following results were obtained with the [employer] Rubella IgG assay. Results from assays of other manufacturers cannot be used interchangeably. Performed By: #### L 3890.6006, L3890.6102, L501.9520, L3410.9992, BTS, L3890.6301, L100.0100, L509.8002, L509.4006, L506.0400 #### [facility] [address] [facility] [place], [place], [id number] Laboratory - Microbiology an d Antimicrobial susceptibilityOrdered By: Mechelle Francois on 11-19-2024 HBV surface Ag Ql (S) Non-Reactive Nonreactive [facility] Comment on above: Reactive: Presumptiv e evidence of HBV. Repeatedly reactive samples must be confirmed using a neutralization test ([employer] HBsAg Confirmatory Test)Non-Reactive: HBsAg not detected; does not exclude the possibility of exposure to HBV MCV (mean corpuscular volume ) determinationOrdered By: Mechelle Francois on 11-19-2024 MCV (RBC) [Entitic vol] 86.6 fL 81-[address] [facility] Mean corpuscular hemoglobin (MCH) determinationOrdered By: Mechelle Francois on 11-19-2024 MCH (RBC) [Entitic mass] 30.5 pg 27.0-32.0 [facility] Mean corpuscular hemoglobin concentration (MCHC) determinationOrdered By: Mechelle Francois on 11-19-2024 MCHC (RBC) [Mass/Vol] 35.2 g/dL 32-36 [facility] Mean platelet volume determi nationOrdered By: Mechelle Francois on 11-19-2024 Platelet mean volume (Bld) [Entitic vol] 9.4 fL 6.2-12.0 [facility] Monocyte percentageOrdered B y: Mechelle Francois on 11-19-2024 Monocytes/100 WBC (Bld) 10.0 % 0-[address] [facility] Neisseria gonorrhoeae nuclei c acid detection by amplified probe techniqueOrdered By: Mechelle Francois on 11-19-2024 N. gonorrhoeae DNA ANIRUDH+probe Ql (Unsp spec) Negative Negative [facility] Comment on above: Performed at: =[address] [id number] Director: Alina Arreola MD, Phone: [phone] Neutrophil percentageOrdered By: Mechelle Francois on 11-19-2024 Neutrophils/100 WBC (Bld) 71.3 % High 47-70 [facility] No Panel InformationOrdered By: Mechelle Francois on 11-19-2024 HIV (1&2) Antibody Non-Reactive Nonreactive [facility] Comment on above: Non-ReactiveReactive Repeatedly reactive samples must be confirmed according to CDC recommended confirmatory algorithms. The subresults for either HIVAG or AHIV can be used as an aid in the selection of the confirmation algorithm for reactive samples.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 Operator Office Visit Report [facility]'s [address], [address] [place] [address] OFFICE VISIT Date of Service: 11/19/24 MR#: [id number] Acct: [id number] Name: CHERY MCKEON Rep #: [id number] : 2000 Provider: GISELA Franks ams Age/Sex: 23/F Location: [facility] Status: Signed Intake Vital Signs 11/05/15 16:09 11/03/24 10:46 11/19/24 08:43 Height 5 ft 5 in 5 ft 5 in 5 ft 5 in Weight: 170 lb 6 oz BMI 28.3 BP 130/86 H Intake Visit Reasons: NOB LMP 09/16 Chief Complaint: 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 OB 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 Is patient in pain?: No Allergies No Known Allergies Allergy (Verified 11/19/24 08:44) Medications ???Medication ???Instructions ???Recorded ???Confirmed ???Type loratadine 10 mg tablet (Allergy 10 mg PO DAILY 11/05/15 11/19/24 H istory Relief (loratadine)) cholecalciferol (vitamin D3) 10 20 mcg PO QDAY 11/03/24 11/19/24 H istory mcg (400 unit) capsule docosahexaenoic acid 200 mg mg PO 11/03/24 11/19/24 History capsule ( DHA) pyridoxine (vitamin B6) 10 mg 10 mg PO QDAY 11/03/24 11/19/24 Hi story tablet levothyroxine 25 mcg tablet 50 mcg PO QDAY 11/19/24 11/19/24 H istory (Levo-T) ondansetron 4 mg disintegrating 4 mg PO Q6H PRN nausea and 5 11/19/24 Rx tablet vomiting #90 tabs Last Menstrual Period: 09/16/24 : Yes Have you fallen in the past year?: No PFSH PFSH Surgical History [place] teeth removed S/P cholecystectomy Family History Grandfather Prostate cancer Grandmother Colon cancer CVA (cerebral vascular accident) Grandmother Dementia Father Diabetes Myocardial infarction Skin cancer Mother Heart disease Thyroid disorder Social History adopted: No household members: spouse housing: house current occupational status: employed current occupation: [employer] current occupational exposures/hazards: No pets and animals: No history of recent travel: Yes ([place] September 2024, [place] August 2024) out of state: Yes out of country: No sexually active: No Smoking Status: Never smoker alcohol intake: current alcohol intake frequency: holidays/special occasions only details: Not while substance use type: does not use well-balanced diet: daily or most days caffeine: Yes Type: coffee eating out: 1-3 times/week during the past year weight has: increased > 10 lbs what type of physical activity do you participate in: walking frequency: 1-2 times per week duration: 15-30 minutes/day guy/scientology: Jew seatbelt use: always do you feel safe at home: Yes 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 OB Visit JACI Calculator Estimated Delivery Date Method Current WG Current Estimate 07/01/25 Ultrasound #1 8w 0d Other Estimates 06/23/25 LMP (Certain) 9w 1d Estimated Due Date: 06/23/25 Expected Delivery Route/Plan Labor Preferences- CB/BF classes: [] labor support person: [] labor intervention preferences: [] pain management options preferred: [] cut cord/dad catch: [] : [] PP control planned: [] discussed possible routes of delivery and associated risks: [] special requests: [] Specific Issue/Plans Covid status: [] Flu vaccine: [] Tdap vaccine: [] Rhogam: [] LARC form signed: [] Problem list reviewed and updated with the most current plan of care details and appropriate orders placed. Relevant counseling for the gestational age provided. Continue routine care and follow up unless otherwise noted in visit notes/problem list details Initial Weight: 170 lb Date -???-???-???-???-? ??-???-???-???-??? -???-???-???- EGA Weight BP Urine Prot -???-???-???-???-? ??-???-???-???-??? -???-???-???- Glucose FHR FuHt Pres Dilation -???-???-???-???-? ??-???-???-???-??? -???-???-???- Effaced St Visit Note 11/19/24 -???-???-???-???-? ??-???-???-???-??? -???-???-???- 8w 0d 170 lb 6 oz (+6 oz) 130/86 -???-???-???-???-? ??-???-???-???-??? -???-???-???- 167 -???-???-???-???-? ??-???-???-???-??? -???-???-???- KW- CRL not cons with dates. JACI changed. declines NIPT. PAP done with [facility] reports normal. Menstrual History Last Menstrual Period: 09/16/24 Reported LMP: definite Normal amount/duration: Yes Frequency in days: 28 On hormonal BC at conception: No (more content not included)... Normal [facility] Platelet countOrdered By: Pito Francois on 11-19-2024 Platelets (Bld) [#/Vol] 355 10*3/uL 150-450 [facility] RBC Auto (Bld) [#/Vol]Ordere d By: Mechelle Francois on 11-19-2024 RBC (Bld) [#/Vol] 4.49 10*6/uL 4.2-5.4 [facility] Syphilis Antibodieson 2024 Syphilis Abs Non-Reactive Normal Nonreactive [facility] Comment on above: Performed By: #### L 3890.6006, L3890.6102, L501.9520, L3410.9992, BTS, L3890.6301, L100.0100, L509.8002, L509.4006, L506.0400 ####[facility] [address] [place], [place], [id number] T4 Free Directon 11-19-2024 T4 FREE DIRECT 1.30 ng/dL Normal 0.76-1.46 [facility] Comment on above: Performed By: #### L 3890.6006, L3890.6102, L501.9520, L3410.9992, BTS, L3890.6301, L100.0100, L509.8002, L509.4006, L506.0400 #### [facility] [address] [place], [place], [id number] T4 freeOrdered By: Mechelle berkowitz on 11-19-2024 Free T4 [Mass/Vol] 1.30 ng/dL 0.76-1.46 [facility] TSH DL <= 0.005 mIU/L QnOrde red By: Mechelle Francois on 11-19-2024 TSH Qn 3.300 uIU/mL 0.300-4.200 [facility] Thyroid Stim Hormone (TSH)on 11-19-2024 TSH 3.300 uIU/mL Normal 0.300-4.200 [facility] Comment on above: Performed By: #### L 3890.6006, L3890.6102, L501.9520, L3410.9992, BTS, L3890.6301, L100.0100, L509.8002, L509.4006, L506.0400 #### [facility] [address] [place], [place], [address] Type AND Screenon 11-19-2024 ABO and Rh group Nom (Bld) Blood group O Rh(D) positive Normal [facility] Comment on above: Order Comment: PN Performed By: #### L 3890.6006, L3890.6102, L501.9520, L3410.9992, BTS, L3890.6301, L100.0100, L509.8002, L509.4006, L506.0400 ####[facility] [address] [place], [place], [address] Urine cultureOrdered By: Dada Francois on 11-19-2024 Bacteria identified Cx Nom (U) GPC Poss Enterococcus sp Abnormal [facility] Bacteria identified Cx Nom (U) Positive Abnormal [facility] White blood cell (WBC) count Ordered By: Mechelle Francois on 11-19-2024 WBC (Bld) [#/Vol] 8.3 10*3/uL 4.4-11.0 [facility] - Chemistry and C hemistry - challengeOrdered By: Mechelle Francois on 11-03-2024 HCG ( test) Ql (U) Positive [facility] Office Visit Reporton 2024 Office Visit Report [facility] [address] [place] [address] OFFICE VISIT Date of Service: 11/03/24 MR#: [id number] Acct: [id number] Patient: CHERY MCKEON Rep #: [id number] : 2000 Provider: CHANG church Age/Sex: 23/F [place] [facility] [place]: Signed Intake Vital Signs 11/05/15 16:09 11/03/24 10:46 Height 5 ft 5 in 5 ft 5 in Weight: 170 lb 6 oz BMI 28.3 BP 118/76 Intake Visit Reasons: PNOB nurse visit Chief Complaint: In person NOB Accompanied by: Allergies No Known Allergies Allergy (Verified 11/03/24 10:16) Medications ???Medication ???Instructions ???Recorded ???Confirmed ???Type loratadine 10 mg tablet (Allergy 10 mg PO DAILY 11/05/15 11/03/24 H istory Relief (loratadine)) cholecalciferol (vitamin D3) 10 20 mcg PO QDAY 11/03/24 11/03/24 H istory mcg (400 unit) capsule docosahexaenoic acid 200 mg mg PO 11/03/24 11/03/24 History capsule ( DHA) levothyroxine 25 mcg tablet 25 mcg PO QDAY 11/03/24 11/03/24 H istory (Levo-T) pyridoxine (vitamin B6) 10 mg 10 mg PO QDAY 11/03/24 11/03/24 Hi story tablet Is last menstrual period known: Yes Post menopausal: No Patient : Yes Nurse's Note: Pt here for PNOB. Office UPT: positive. Vitals WNL. PNOB questions completed. Problem list, allergies, and medications updated. Results Office , Urine Office , Urine Positive Last Edit by Nicole Larry RN on 11/03/24 10:48 Assessment and Plan Assessment and Plan (1) Supervision of high-risk : Status: Acute Qualifiers: Trimester: first trimester Qualified Code(s): O09.91 - Supervision of high risk , unspecified, first trimester Comment: G1, JACI 06/23/25, : Desmond Orders: Orders POC Urine Today N91.2 - Amenorrhea, unspecified CBC W/Diff, Automated Today O09.90 - Supervision of high risk , unspecified, unspecified trimester Type Screen Today O09.90 - Supervision of high risk , unspecified, unspecified trimester Rubella IgG Today O09.90 - Supervision of high risk , unspecified, unspecified trimester Hepatitis C Antibody Today O09.90 - Supervision of high risk , unspecified, unspecified trimester Hepatitis B Surface Antigen Today O09.90 - Supervision of high risk , unspecified, unspecified trimester Culture, Urine Today O09.90 - Supervision of high risk , unspecified, unspecified trimester Syphilis Antibodies Today O09.90 - Supervision of high risk , unspecified, unspecified trimester Chlamydia/GC ANIRUDH aptima Today O09.90 - Supervision of high risk , unspecified, unspecified trimester HIV Today O09.90 - Supervision of high risk , unspecified, unspecified trimester Thyroid Stim Hormone (TSH) Today E06.3 - Autoimmune thyroiditis, O09.90 - Supervision of high risk , unspecified, unspecified trimester T4 Free Direct Today E06.3 - Autoimmune thyroiditis, O09.90 - Supervision of high risk , unspecified, unspecified trimester Miscellaneous Lab Procedure Today E06.3 - Autoimmune thyroiditis, O09.90 - Supervision of high risk , unspecified, unspecified trimester Plan confirmed and NOB scheduled 11/03/24 1213 Date Mechelle Priscila NEGATIVE DEVELOPER NEGATIVE DEVELOPER-C Cosigner Signature: Date (if applicable) CC: Normal [facility] CBC (INCLUDES DIFF/PLT)on Basophils (Bld) [#/Vol] 0.038 10*3/uL Normal 0-200 [facility] Comment on above: Performed By: #### 6 399, 21767, 358, 866 #### [facility] [place] [address] Pet Ambassador: Jimbo Sal MD Basophils/100 WBC (Bld) 0.4 % Normal [facility] Comment on above: Performed By: #### 6 399, 75876, 718, 866 #### [facility] [address] Pet Ambassador: Jimbo Sal MD Eosinophils (Bld) [#/Vol] 0.094 10*3/uL Normal 15-500 [facility] Comment on above: Performed By: #### 6 399, 06772, 835, 866 #### [facility] of [place] [address] Pet Ambassador: Jimbo Sal MD Eosinophils/100 WBC (Bld) 1.0 % Normal [facility] Comment on above: Performed By: #### 6 399, 02475, , 866 #### [facility] [place] [address] Pet Ambassador: Jimbo Sal MD Erythrocyte distribution width (RBC) [Ratio] 12.0 % Normal 11.0-15.0 [facility] Comment on above: Performed By: #### 6 399, 06572, , 866 #### [facility] [place] [address] Pet Ambassador: Jimbo Sal MD Hematocrit (Bld) [Volume fraction] 41.9 % Normal 35.0-45.0 [facility] Comment on above: Performed By: #### 6 399, 47962, , 866 #### [facility] [place] [address] Pet Ambassador: Jimbo Sal MD Hemoglobin (Bld) [Mass/Vol] 14.1 g/dL Normal 11.7-15.5 [facility] Comment on above: Performed By: #### 6 399, 94852, , 866 #### [facility] [place] [address] Pet Ambassador: Jimbo Sal MD Lymphocytes (Bld) [#/Vol] 1.645 10*3/uL Normal 850-3900 [facility] Comment on above: Performed By: #### 6 399, 47994, , 866 #### [facility] [place] [address] Pet Ambassador: Jimbo Sal MD Lymphocytes/100 WBC (Bld) 17.5 % Normal [facility] Comment on above: Performed By: #### 6 399, 48593, , 866 #### [facility] [place] [address] Pet Ambassador: Jimbo Sal MD MCH (RBC) [Entitic mass] 30.8 pg Normal 27.0-33.0 [facility] Comment on above: Performed By: #### 6 399, 90627, , 866 #### [facility] [place] [address] Pet Ambassador: Jimbo Sal MD MCHC (RBC) [Mass/Vol] 33.7 g/dL Normal 32.0-36.[address] [facility] Comment on above: Result Comment: For adults, a slight decrease in the calculated MCHC value (in the range of 30 to 32 g/dL) is most likely not clinically significant; however, it should be interpreted with caution in correlation with other red cell parameters and the patient's clinical condition. Performed By: #### 6 399, 04720, , 866 #### [facility] [place] [address] Pet Ambassador: Jimbo Sal MD MCV (RBC) [Entitic vol] 91.5 fL Normal 80.0-100.0 [facility] Comment on above: Performed By: #### 6 399, 20644, , 866 #### [facility] [place] [address] Pet Ambassador: Jimbo Sal MD Monocytes (Bld) [#/Vol] 0.752 10*3/uL Normal 200-950 [facility] Comment on above: Performed By: #### 6 399, 94348, , 866 #### [facility] [place] [address] Pet Ambassador: Jimbo Sal MD Monocytes/100 WBC (Bld) 8.0 % Normal [facility] Comment on above: Performed By: #### 6 399, , , 866 #### [facility] [place] [address] Pet Ambassador: Jimbo Sal MD Neutrophils (Bld) [#/Vol] 6.871 10*3/uL Normal 0123-3004 [facility] Comment on above: Performed By: #### 6 399, 27465, 89, 866 #### [facility] of [address], [address] [place] [address] Pet Ambassador: Jimbo Sal MD Neutrophils/100 WBC (Bld) 73.1 % Normal [facility] Comment on above: Performed By: #### 6 399, 54369, , 866 #### [facility] of [address], [address] [place] [address] Pet Ambassador: Jimbo Sal MD Platelet mean volume (Bld) [Entitic vol] 9.4 fL Normal 7.5-12.5 [facility] Comment on above: Performed By: #### 6 399, 04774, , 866 #### [facility] of [address], [address] [place] [address] Pet Ambassador: Jimbo Sal MD Platelets (Bld) [#/Vol] 401 10*3/uL High 140-400 [facility] Comment on above: Performed By: #### 6 399, 38053, , 866 #### [facility] [place] [address] Pet Ambassador: Jimbo Sal MD RBC (Bld) [#/Vol] 4.58 10*6/uL Normal 3.80-5.10 [facility] Comment on above: Performed By: #### 6 399, 16920, , 866 #### [facility] of [address], [address] [place] [address] Pet Ambassador: Jimbo Sal MD WBC (Bld) [#/Vol] 9.4 10*3/uL Normal 3.8-10.8 [facility] Comment on above: Performed By: #### 6 399, 29960, 89, 866 #### [facility] of [address], [address] [place] [address] Pet Ambassador: Jimbo Sal MD [facility] 06-14-2024 Albumin [Mass/Vol] 4.6 g/dL Normal 3.6-5.1 [facility] Comment on above: Performed By: #### 6 399, 86267, 89, 866 #### [facility] [place] [address] Pet Ambassador: Jimbo Sal MD Albumin/Globulin [Mass ratio] 2.1 {ratio} Normal 1.0-2.5 [facility] Comment on above: Performed By: #### 6 399, 70500, , 866 #### [facility] [place] [address] Pet Ambassador: Jimbo Sal MD ALP [Catalytic activity/Vol] 47 U/L Normal 31-125 [facility] Comment on above: Performed By: #### 6 399, 00502, , 866 #### [facility] [place] [address] Pet Ambassador: Jimbo Sal MD ALT [Catalytic activity/Vol] 16 U/L Normal 6-29 [facility] Comment on above: Performed By: #### 6 399, 70943, 89, 866 #### [facility] [place] [address] Pet Ambassador: Jimbo Sal MD AST [Catalytic activity/Vol] 19 U/L Normal 10-30 [facility] Comment on above: Performed By: #### 6 399, 04448, , 866 #### [facility] [place] [address] Pet Ambassador: Jimbo Sal MD Bilirubin [Mass/Vol] 0.4 mg/dL Normal 0.2-1.2 [facility] Comment on above: Performed By: #### 6 399, 86274, 89, 866 #### [facility] [place] [address] Pet Ambassador: Jimbo Sal MD BUN/CREATININE RATIO SEE NOTE: Normal 6-22 [facility] Comment on above: Result Comment: Not Reported: BUN and Creatinine are within reference range. Performed By: #### 6 399, 38145, , 866 #### [facility] [place] [address] Pet Ambassador: Jimbo Sal MD Calcium [Mass/Vol] 9.9 mg/dL Normal 8.6-10.2 [facility] Comment on above: Performed By: #### 6 399, 87035, , 866 #### [facility] [place] [address] Pet Ambassador: Jimbo Sal MD Chloride [Moles/Vol] 106 mmol/L Normal 98-110 [facility] Comment on above: Performed By: #### 6 399, 74545, , 866 #### [facility] [place] [address] Pet Ambassador: Jimbo Sal MD CO2 [Moles/Vol] 24 mmol/L Normal 20-32 [facility] Comment on above: Performed By: #### 6 399, 33402, , 866 #### [facility] [place] [address] Pet Ambassador: Jimbo Sal MD Creatinine [Mass/Vol] 0.70 mg/dL Normal 0.50-0.96 [facility] Comment on above: Performed By: #### 6 399, 61721, , 866 #### [facility] [place] [address] Pet Ambassador: Jimbo Sal MD GFR/1.73 sq M.predicted among non-blacks MDRD (S/P/Bld) [Vol rate/Area] 125 mL/min/{1.73_m2} Normal > OR = 60 [facility] Comment on above: Performed By: #### 6 399, 94650, , 866 #### [facility] [place] [address] Pet Ambassador: Jimbo Sal MD Globulin (S) [Mass/Vol] 2.2 g/dL Normal 1.9-3.7 [facility] Comment on above: Performed By: #### 6 399, 34369, , 866 #### [facility] [place] [address] Pet Ambassador: Jimbo Sal MD Glucose [Mass/Vol] 89 mg/dL Normal 65-99 [facility] Comment on above: Result Comment: Fasting reference interval Performed By: #### 6 399, 21595, , 866 #### [facility] [place] [address] Pet Ambassador: Jimbo Sal MD Potassium [Moles/Vol] 4.1 mmol/L Normal 3.5-5.[address] [facility] Comment on above: Performed By: #### 6 399, , , 866 #### [facility] [place] [address] Pet Ambassador: Jimbo Sal MD Protein [Mass/Vol] 6.8 g/dL Normal 6.1-8.1 [facility] Comment on above: Performed By: #### 6 399, 89475, , 866 #### [facility] [place] [address] Pet Ambassador: Jimbo Sal MD Sodium [Moles/Vol] 138 mmol/L Normal 135-146 [facility] Comment on above: Performed By: #### 6 399, 89641, , 866 #### [facility] [place] [address] Pet Ambassador: Jimbo Sal MD Urea nitrogen [Mass/Vol] 12 mg/dL Normal 7-25 [facility] Comment on above: Performed By: #### 6 399, 74454, , 866 #### [facility] [place] [address] Pet Ambassador: Jimbo Sal MD FERRITINon 06-14-2024 Ferritin [Mass/Vol] 19 ng/mL Normal 16-154 [facility] Comment on above: Performed By: #### 6 399, 51679, 899, 866 #### [facility] [address], [address] [place] [address] Pet Ambassador: Jimbo Sal MD T4, FREEon 06-14-2024 Free T4 [Mass/Vol] 1.3 ng/dL Normal 0.8-1.8 [facility] Comment on above: Performed By: #### 6 399, 62219, 899, 866 #### [facility] [address], [address] [place] [address] Pet Ambassador: Jimbo Sal MD TSHon 06-14-2024 TSH Qn 1.71 m[IU]/L Normal [facility] Comment on above: Result Comment: Refe rence Range > or = 20 Years 0.40-4.50 Ranges First trimester 0.26-2.66 Second trimester 0.55-2.73 Third trimester 0.43-2.91 Performed By: #### 6 399, 81791, 899, 866 #### [facility] [place] [address] Pet Ambassador: Jimbo Sal MD Laboratory - Chemistry and C hemistry - challengeon 06-12-2024 Albumin [Mass/Vol] 4.6 g/dL Normal 3.6 - 5.1 g/dL [facility], [facility].; [facility], [facility] Albumin/Globulin [Mass ratio] 2.1 {ratio} Normal 1.0 - 2.5 [facility], [facility].; [facility], [facility]. ALP [Catalytic activity/Vol] 47 U/L Normal 31 - 125 U/L [facility], [facility].; [facility], [facility]. ALT [Catalytic activity/Vol] 16 U/L Normal 6 - 29 U/L [facility], [facility].; [facility], [facility]. AST [Catalytic activity/Vol] 19 U/L Normal 10 - 30 U/L [facility], [facility].; [facility]. Bilirubin [Mass/Vol] 0.4 mg/dL Normal 0.2 - 1.2 mg/dL [facility].; [facility], [facility] Calcium [Mass/Vol] 9.9 mg/dL Normal 8.6 - 10. 2 mg/dL [facility].; [facility], [facility] Chloride [Moles/Vol] 106 mmol/L Normal 98 - 110 mmol/L [facility]; [facility], [facility] CO2 [Moles/Vol] 24 mmol/L Normal 20 - 32 mmol/L [facility]; [facility], [facility] Creatinine [Mass/Vol] 0.70 mg/dL Normal 0.50 - 0.96 mg/dL [facility]; [facility], [facility] Ferritin [Mass/Vol] 19 ng/mL Normal 16 - 154 ng/mL [facility], [facility]; [facility], [facility] Free T4 [Mass/Vol] 1.3 ng/dL Normal 0.8 - 1.8 ng/dL [facility]; [facility], [facility] GFR/1.73 sq M.predicted among non-blacks MDRD (S/P/Bld) [Vol rate/Area] 125 mL/min/{1.73_m2} Normal [facility], [facility]; [facility], [facility] Glucose [Mass/Vol] 89 mg/dL Normal 65 - 99 mg/dL [facility].; [facility], [facility] Potassium [Moles/Vol] 4.1 mmol/L Normal 3.5 - 5.3 mmol/L [facility].; [facility], [facility] Protein [Mass/Vol] 6.8 g/dL Normal 6.1 - 8.1 g/dL [facility]; [facility], [facility] Sodium [Moles/Vol] 138 mmol/L Normal 135 - 146 mmol/L [facility], [facility].; [facility], [facility] TSH Qn 1.71 m[IU]/L Normal [facility], [facility]; [facility], [facility] Urea nitrogen [Mass/Vol] 12 mg/dL Normal 7 - 25 mg/d L [facility].; [place] [employer] [facility]. Laboratory - Hematology and Cell countson 06-12-2024 Basophils (Bld) [#/Vol] 0.038 10*3/uL Normal 0 - 200 {cells/uL} [facility], [facility].; [place] [employer] [facility], [facility]. Basophils/100 WBC (Bld) 0.4 % Normal [facility].; [facility], [facility] Eosinophils (Bld) [#/Vol] 0.094 10*3/uL Normal 15 - 500 {cells/uL} [facility].; [facility] [employer], [facility] Eosinophils/100 WBC (Bld) 1.0 % Normal [facility].; [place] [employer], [facility]. Erythrocyte distribution width (RBC) [Ratio] 12.0 % Normal 11.0 - 15.0 % [facility], [facility].; [place] [employer], [employer]. Hematocrit (Bld) [Volume fraction] 41.9 % Normal 35.0 - 45.0 % [facility].; [place] [employer], [facility]. Hemoglobin (Bld) [Mass/Vol] 14.1 g/dL Normal 11.7 - 15.5 g/dL [facility].; [place] [employer], [facility]. Lymphocytes (Bld) [#/Vol] 1.645 10*3/uL Normal 850 - 3900 {cells/uL} [facility], [facility].; [place] [employer], [facility]. Lymphocytes/100 WBC (Bld) 17.5 % Normal [facility].; [place] [employer], [facility]. MCH (RBC) [Entitic mass] 30.8 pg Normal 27.0 - 33.0 pg [facility].; [place] [employer], [employer]. MCHC (RBC) [Mass/Vol] 33.7 g/dL Normal 32.0 - 36.0 g/dL [facility].; [place] [employer] MCV (RBC) [Entitic vol] 91.5 fL Normal 80.0 - 100.0 fL [facility], [facility].; [place] [employer], [facility]. Monocytes (Bld) [#/Vol] 0.752 10*3/uL Normal 200 - 950 {cells/uL} [facility].; [place] [employer]. Monocytes/100 WBC (Bld) 8.0 % Normal [facility].; [place] [employer] [facility]. Neutrophils (Bld) [#/Vol] 6.871 10*3/uL Normal 1500 - 7800 {cells/uL} [facility] [employer] [place] [employer], [employer]. Neutrophils/100 WBC (Bld) 73.1 % Normal [place] [employer] [facility].; [place] [employer]. Platelet mean volume (Bld) [Entitic vol] 9.4 fL Normal 7.5 - 12.5 fL [facility].; [place] [employer], [employer]. Platelets (Bld) [#/Vol] 401 10*3/uL Abnormal 140 - 400 [facility] [employer].; [place] [employer], [employer]. RBC (Bld) [#/Vol] 4.58 10*6/uL Normal 3.80 - 5.1 0 {Million/uL} [place] [employer].; [place] [employer]. WBC (Bld) [#/Vol] 9.4 10*3/uL Normal 3.8 - 10.8 [place] [employer].; [place] [employer]. No Panel Informationon 06-12 BUN/CREATININE RATIO SEE NOTE: Normal - 22 [facility] [employer].; [place] [employer]. GLOBULIN 2.2 Normal 1.9 - 3.7 [place] [employer].; [place] [employer]. US Pelvison 03-24-2024 Indication Dyspareunia Impression Normal appearing anteverted uterus that measures 76 mm x 29 mm x 45 mm. Endometrium has a normal trilaminar appearance and measures 3.9 mm. Normal endometrial contour. Both ovaries are visualized and appear normal. No adnexal masses were observed. There is free fluid visualized in the peritoneal cavity. Recommendations Follow up as clinically indicated. Menstrual History LMP on 02/28/2024. Contraception: combined oral contraceptive pill Method Transabdominal, transvaginal, 3D ultrasound examination, Color Doppler examination. View: Adequate visualization Uterus Uterus: Visualized Uterus position: anteverted Description of uterine malformations: none Myometrium: normal Endometrium: normal Cervix details: normal Uterus length 76 mm Uterus width 45 mm Uterus height 29 mm Uterus Vol 51.8 cm Endometrial thickness, total 3.9 mm Right Ovary Rt ovary: Visualized Rt ovary morphology: premenopausal normal follicular Rt ovary D1 35 mm Rt ovary D2 16 mm Rt ovary D3 16 mm Rt ovary Vol 4.7 cm Left Ovary Lt ovary: Visualized Lt ovary morphology: premenopausal normal follicular Lt ovary D1 28 mm Lt ovary D2 21 mm Lt ovary D3 14 mm Lt ovary Vol 4.5 cm Cul de Sac Visualized. free fluid visualized Largest pool 23.5 mm x 26.0 mm x 20.2 mm. Vol 6.462 ml Performed By: Peyton Jenkins RDMS Read By: Maia Ludwig M.D. MATERNAL MEDICINE [facility] US Pelvison 03-20-2024 Radiology Study observation (narrative) [facility] BACTERIAL VAGINOSIS NAATon 0 03-11-2024 Lactobacillus crispatus+gasseri+hahn ii + Gardnerella vaginalis + Atopobium vaginae rRNA ANIRUDH+probe Ql (Vag fld) Negative Normal Negative for bacterial vaginosis [facility] Comment on above: Order Comment: Speci men Type: SWAB Ordering Facility: [facility] Address: [address] [place] [address] Performed By: #### B MARGARET, CVTV #### [facility] CLIA [id number] [address] [place] [address] [place] C. trachomatis+N. gonorrhoea e DNA ANIRUDH+probe Ql (Unsp spec)on 03-11-2024 C. trachomatis rRNA ANIRUDH+probe Ql (Unsp spec) Negative Normal Negative for Chlamydia trachomatis by amplificaton [facility] Comment on above: Order Comment: Speci men Type: SWAB Ordering Facility: [facility] Address: [address] [place] [address] Performed By: #### 3 [id number] #### [facility] CLIA [id number] [address] [place] [address] [place] N. gonorrhoeae rRNA ANIRUDH+probe Ql (Unsp spec) Negative Normal Negative for Neisseria gonorrhoeae by amplification [facility] Comment on above: Order Comment: Speci men Type: SWAB Ordering Facility: [facility] Address: [address] [place] [address] Performed By: #### 3 [id number] #### [facility] CLIA [id number] [address] [place] [address] [place] FLORIDALMA/TRICHOMONAS NAATon 0 03-11-2024 C. glabrata RNA ANIRUDH+probe Ql (Vag fld) Negative Normal Negative for Floridalma glabrata [facility] Comment on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 OTHER: Negative. CONCLUSION: 1. No stones. Debris in the gallbladder lumen. DICTATED BY: MINE VARGAS MD ON 11/14/2018 AT 12:35 APPROVED BY: MINE VARGAS MD ON 11/14/2018 AT 12:35 Normal [facility] Laboratory - Chemistry and C hemistry - challengeon 10-30-2018 Albumin [Mass/Vol] 5.1 g/dL Normal 3.6 - 5.1 g/dL [facility] [employer] Albumin/Globulin [Mass ratio] 2.2 {ratio} Normal 1.0 - 2.5 [place] [employer] ALP [Catalytic activity/Vol] 50 U/L Normal 47 - 176 U/L [place] [employer].; [employer] ALT [Catalytic activity/Vol] 20 U/L Normal 5 - 32 U/L [place] [employer].; [employer], [employer] AST [Catalytic activity/Vol] 25 U/L Normal 12 - 32 U/L [employer], [employer] Bilirubin [Mass/Vol] 0.6 mg/dL Normal 0.2 - 1.1 mg/dL [place] [employer].; [employer] Calcium [Mass/Vol] 9.8 mg/dL Normal 8.9 - 10. 4 mg/dL [employer], [employer] Chloride [Moles/Vol] 107 mmol/L Normal 98 - 110 mmol/L [facility] CO2 [Moles/Vol] 22 mmol/L Normal 20 - 32 mmol/L [facility] [employer] Creatinine [Mass/Vol] 0.61 mg/dL Normal 0.50 - 1.00 mg/dL [employer] GFR/1.73 sq M.predicted among blacks MDRD (S/P/Bld) [Vol rate/Area] SEE NOTE Normal [employer] GFR/1.73 sq M.predicted MDRD (S/P/Bld) [Vol rate/Area] SEE NOTE Normal [employer] [facility] Globulin (S) [Mass/Vol] 2.3 g/dL Normal 2.0 - 3.8 g/ dL [facility], [facility].; [facility], [facility]. Glucose [Mass/Vol] 74 mg/dL Normal 65 - 99 mg/dL [facility].; [facility], [facility]. Potassium [Moles/Vol] 4.4 mmol/L Normal 3.8 - 5.1 mmol/L [facility].; [facility], [facility] Protein [Mass/Vol] 7.4 g/dL Normal 6.3 - 8.2 g/dL [facility].; [facility], [facility] Sodium [Moles/Vol] 138 mmol/L Normal 135 - 146 mmol/L [facility], [facility].; [facility], [facility]. Urea nitrogen [Mass/Vol] 13 mg/dL Normal 7 - 20 mg/d L [facility], [facility].; [facility], [facility] Urea nitrogen/Creatinine [Mass ratio] 20.8 mg/mg Normal [facility].; [facility], [facility] Laboratory - Hematology and Cell countson 06-23-2018 Basophils/100 WBC (Bld) 0.3 % Normal 0 - 1 % [facility].; [facility], [facility] Eosinophils/100 WBC (Bld) 1.6 % Normal 0 - 5 % [facility], [facility].; [facility], [facility] Erythrocyte distribution width (RBC) [Ratio] 12.3 % Normal 11.6 - 14.6 % [facility], [facility] Hematocrit (Bld) [Volume fraction] 38.1 % Normal 37 - 47 % [facility], [facility].; [facility], [facility] Hemoglobin (Bld) [Mass/Vol] 13.2 g/dL Normal 12.0 - 15.0 g/dL [facility].; [facility], [facility] Lymphocytes/100 WBC (Bld) 22.0 % Normal 19 - 41 % [facility], [facility].; [facility], [facility] MCH (RBC) [Entitic mass] 30.3 pg Normal 27.0 - 32.0 pg [facility].; [employer]. MCV (RBC) [Entitic vol] 87.4 fL Normal 81 - 99 fL [facility].; [place] [employer], [facility]. Monocytes (Bld) [#/Vol] Negative Normal [facility], [facility].; [employer] Monocytes/100 WBC (Bld) 10.6 % Abnormal 0 - 10 % [facility], [facility].; [place] [employer] Neutrophils/100 WBC (Bld) 65.4 % Normal 47 - 70 % [facility].; [employer], [employer]. Platelet mean volume (Bld) [Entitic vol] 8.8 fL Normal 6.2 - 12.0 fL [facility].; [employer], [employer]. Platelets (Bld) [#/Vol] 256 10*3/uL Normal 150 - 450 K /mm3 [facility].; [employer], [employer]. RBC (Bld) [#/Vol] 4.36 10*6/uL Normal 4.1 - 4.8 {M/mm3} [facility].; [place] [employer]. WBC (Bld) [#/Vol] 6.7 10*3/uL Normal 4.4 - 11.0 K/mm3 [facility].; [place] [employer]. No Panel Informationon 06-23 Absolute Lymph 1.47 {X10_3/ul} Normal 0.83 - 4.5 1 {X10_3/ul} [facility].; [place] [employer]. Absolute Neut 4.4 {X10_3/uL} Normal 2.0 - 7.7 {X10_3/uL} [facility].; [employer], [employer]. IM GRAN % 0.100 % Normal 0.0 - 0.9 % [place] [employer].; [employer] MCHC 34.6 {g/gl} Normal 32 - 36 {g/gl} [facility], [facility].; [employer] RDW SD 39.4 fL Normal 35.1 - 43.9 fL [facility] [employer] [employer]. Laboratory - Chemistry and C hemistry - challengeon 01-28-2018 Free T3 [Mass/Vol] T3, FREE Normal [facility]; [facility] Free T4 [Mass/Vol] 0.97 ng/dL Normal 0.61 - 1. 12 ng/dL [facility]; [place] [employer] [facility] TSH Qn 2.87 m[IU]/L Normal 0.34 - 5.60 {uIU/ml} [facility]; [facility] Laboratory - Microbiology an d Antimicrobial susceptibilityon 08-01-2012 S. pyogenes Ag EIA Ql (Throat) Negative Normal [facility]; [place] [employer] [facility] Laboratory - Microbiology an d Antimicrobial susceptibilityon 07-26-2011 S. pyogenes Ag EIA Ql (Throat) Negative Normal [facility]; [place] [employer] [facility] Laboratory - Microbiology an d Antimicrobial susceptibilityon 10-09-2010 S. pyogenes Ag EIA Ql (Throat) Negative Normal [facility]; [place] [employer] [facility] Vital Signs Date Time Vital Sign Value Performing Clinician Facility 12-21-2024 15:20-0400 Body height 165.1 cm Anna Marie Sales PA Work Phone: [facility] 12-21-2024 15:20-0400 Body mass index (BMI) [Ratio] 27.4 kg/m2 Anna Marie Sales PA Work Phone: [facility] 12-21-2024 15:20-0400 Body weight 74.84 kg Anna Marie Sales PA Work Phone: [facility] 12-21-2024 15:20-0400 Diastolic blood pressure 86 mm[Hg] Anna Marie Sales PA Work Phone: [facility] 12-21-2024 15:20-0400 Systolic blood pressure 126 mm[Hg] Anna Marie Sales PA Work Phone: [facility] 12-16-2024 10:04-0400 Body height 167.64 cm Lloyd House LPN [facility].; [facility]. 12-16-2024 10:04-0400 Body mass index (BMI) [Ratio] 27.12 kg/m2 Lloyd Ramirez Lacy [facility].; [facility]. 12-16-2024 10:04-0400 Body surface area Derived from formula 1.86 m2 Lloyd Ashley House LPN [facility], [facility].; [place] [employer] [facility]. 12-16-2024 10:04-0400 Body temperature 99.2 [degF] Lolyd Ramirez Lacy [facility].; [place] [employer] [facility]. Comment on above: Method: Tympanic 12-16-2024 10:04-0400 Body weight 76.2 kg Lloyd Ramirez Lacy [facility].; [place] [employer] [facility]. 12-16-2024 10:04-0400 Diastolic blood pressure 88 mm[Hg] Lloyd Ramirez Lacy [facility].; [place] [employer] [facility]. Comment on above: Patient Position: Sitting; Cuff Location : Right Arm; Cuff Size: Standard 12-16-2024 10:04-0400 Heart rate 92 /min Lloyd Balabach [facility].; [place] [employer] [facility]. Comment on above: Pattern: Regular 12-16-2024 10:04-0400 Systolic blood pressure 130 mm[Hg] Lloyd Ramirez Lacy REINOSO [facility].; [place] [employer] [facility]. Comment on above: Patient Position: Sitting; Cuff Location : Right Arm; Cuff Size: Standard 11-19-2024 08:43-0400 Body mass index (BMI) [Ratio] 28.3 kg/m2 Anna Marie Henrry GOMEZ Work Phone: [facility] 11-19-2024 08:43-0400 Body weight 77.28 kg Anna Marie GOMEZ Work Phone: [facility] 11-19-2024 08:43-0400 Diastolic blood pressure 86 mm[Hg] Anna Marie GOMEZ Work Phone: [facility] 11-19-2024 08:43-0400 Systolic blood pressure 130 mm[Hg] Anna Marie Darlinger PA Work Phone: [facility] 11-03-2024 10:46-0400 Body mass index (BMI) [Ratio] 28.3 kg/m2 Anna Marie Sales PA Work Phone: [facility] 11-03-2024 10:46-0400 Body weight 77.28 kg Anna Marie Darlinger PA Work Phone: [facility] 11-03-2024 10:46-0400 Diastolic blood pressure 76 mm[Hg] Anna Marie Darlinger PA Work Phone: [facility] 11-03-2024 10:46-0400 Systolic blood pressure 118 mm[Hg] Anna Marie Darlinger PA Work Phone: [facility] 06-12-2024 10:04-0500 Body height 167.64 cm Madina Jules LPN [facility] 06-12-2024 10:04-0500 Body mass index (BMI) [Ratio] 26.95 kg/m2 Madina Jules LPN [facility] 06-12-2024 10:04-0500 Body surface area Derived from formula 1.85 m2 Madina Jules LPN [facility] 06-12-2024 10:04-0500 Body weight 75.75 kg Madina Jules LPN [facility] 06-12-2024 10:04-0500 Diastolic blood pressure 85 mm[Hg] Madina Jules LPN [facility] [employer] [facility], [facility]. Comment on above: Patient Position: Sitting; Cuff Location : Left Arm; Cuff Size: Standard 06-12-2024 10:04-0500 Heart rate 73 /min Madina Jules LPN [facility] [place] [employer] [facility] Comment on above: Pattern: Regular 06-12-2024 10:04-0500 Systolic blood pressure 125 mm[Hg] Madina Jules LPN [facility] Comment on above: Patient Position: Sitting; Cuff Location : Left Arm; Cuff Size: Standard 03-11-2024 07:47-0400 Body weight 71.22 kg Elijah Lyman APPEALS REVIEWER VETERAN.COMMERCIAL OCEAN CLAMMER Work Phone: [facility] 03-11-2024 07:47-0400 Diastolic blood pressure 80 mm[Hg] Elijah Lyman APPEALS REVIEWER VETERAN.COMMERCIAL OCEAN CLAMMER Work Phone: [facility] 03-11-2024 07:47-0400 Systolic blood pressure 122 mm[Hg] Elijah Lyman APPEALS REVIEWER VETERAN.COMMERCIAL OCEAN CLAMMER Work Phone: [facility] 11-28-2022 09:13-0400 Body height 167.64 cm Lloyd House LPN [facility], [facility].; [place] [employer] [facility], [facility]. 11-28-2022 09:13-0400 Body mass index (BMI) [Ratio] 22.43 kg/m2 Lloyd House LPN [facility], [facility].; [facility], [facility]. 11-28-2022 09:13-0400 Body surface area Derived from formula 1.71 m2 Lloyd House LPN [facility], [facility].; [facility], [facility]. 11-28-2022 09:130400 Body weight 63.05 kg Lloyd House LPN [facility], [facility].; [facility] [facility], [facility]. 11-28-2022 09:13-0400 Diastolic blood pressure 84 mm[Hg] Lloyd House LPN [facility], [facility].; [employer]. Comment on above: Patient Position: Sitting; Cuff Location : Left Arm; Cuff Size: Standard 11-28-2022 09:13-0400 Heart rate 78 /min Lloyd House LPN [facility].; [employer]. Comment on above: Pattern: Regular 11-28-2022 09:13-0400 Systolic blood pressure 122 mm[Hg] Lloyd House LPN [facility].; [employer], [employer]. Comment on above: Patient Position: Sitting; Cuff Location : Left Arm; Cuff Size: Standard 07-31-2022 11:01-0500 Body height 167.64 cm Maya Hans LIU [facility], [facility].; [facility]. 07-31-2022 11:01-0500 Body mass index (BMI) [Ratio] 21.63 kg/m2 Maya Hans LIU [facility].; [facility], [employer] 07-31-2022 11:01-0500 Body surface area Derived from formula 1.69 m2 Maya Maxwell MA [facility].; [facility]. 07-31-2022 11:01-0500 Body temperature 97.9 [degF] Mayamarly Hernándezcathryn ALEXA [facility].; [facility] Hospital[facility] [employer]. Comment on above: Method: Tympanic 07-31-2022 11:01-0500 Body weight 60.78 kg Maya Hans LIU [facility].; [place] [employer] [facility] Hospital[facility]. 07-31-2022 11:01-0500 Diastolic blood pressure 87 mm[Hg] Maya Maxwell MA [facility].; [place] [employer]. Comment on above: Patient Position: Sitting; Cuff Location : Left Arm; Cuff Size: Standard 07-31-2022 11:01-0500 Heart rate 125 /min Maya Maxwell MA [facility].; [place] [employer]. Comment on above: Pattern: Regular 07-31-2022 11:01-0500 Inhaled oxygen concentration 20 % Maya Maxwell MA [facility].; [place] [employer]. Comment on above: Room air 07-31-2022 11:01-0500 Inhaled oxygen concentration 21 % Maya Maxwell MA [facility].; [place] [employer]. Comment on above: Room air 07-31-2022 11:01-0500 SaO2% (BldA) [Mass fraction] 98 % Maya Maxwell MA [facility].; [place] [employer] 07-31-2022 11:01-0500 Systolic blood pressure 126 mm[Hg] Maya Maxwell MA [facility].; [place] [employer]. Comment on above: Patient Position: Sitting; Cuff Location : Left Arm; Cuff Size: Standard 07-11-2022 11:15-0400 Body height 167.64 cm Sandra Longoria MA [facility], [facility].; [facility], [facility]. 01-29-2022 11:15-0400 Body mass index (BMI) [Ratio] 20.98 kg/m2 Sandra Longoria MA [facility], [facility].; [facility] 01-29-2022 11:15-0400 Body surface area Derived from formula 1.67 m2 Sandra Longoria MA [facility].; [place] [employer] [facility], [facility]. 01-29-2022 11:15-0400 Body weight 58.97 kg Sandra Longoria MA [facility].; [facility], [facility]. 01-29-2022 11:15-0400 Diastolic blood pressure 84 mm[Hg] Sandra Longoria MA [facility] [place] [employer], [employer]. Comment on above: Patient Position: Sitting; Cuff Location : Left Arm; Cuff Size: Standard 01-29-2022 11:15-0400 Heart rate 84 /min Sandra Longoria MA [facility], [facility].; [place] [employer]. Comment on above: Pattern: Regular 01-29-2022 11:15-0400 Systolic blood pressure 119 mm[Hg] Sandra Longoria MA [facility], [facility].; [place] [employer] Comment on above: Patient Position: Sitting; Cuff Location : Left Arm; Cuff Size: Standard 12-08-2021 14:08-0400 Body height 167.64 cm Lloyd House LPN [facility], [facility].; [place] [employer] [facility], [facility]. 12-08-2021 14:08-0400 Body mass index (BMI) [Ratio] 20.98 kg/m2 Lloyd House LPN [facility] [place] [employer], [facility]. 12-08-2021 14:08-0400 Body surface area Derived from formula 1.67 m2 Lloyd House LPN [facility].; [place] [employer] 12-08-2021 14:08-0400 Body weight 58.97 kg Lloyd House LPN [place] [facility], [facility].; [place] [employer] [facility] HospitalM[facility]. 12-08-2021 14:08-0400 Diastolic blood pressure 80 mm[Hg] Lloyd House [facility].; [employer]. Comment on above: Patient Position: Sitting; Cuff Location : Left Arm; Cuff Size: Standard 12-08-2021 14:08-0400 Heart rate 97 /min Lloyd Balabach [facility].; [employer]. Comment on above: Pattern: Regular 12-08-2021 14:08-0400 Systolic blood pressure 122 mm[Hg] Lloyd Owenach APPLICATION DBA [facility], [facility].; [employer]. Comment on above: Patient Position: Sitting; Cuff Location : Left Arm; Cuff Size: Standard 06-09-2021 10:37-0500 Body height 166.37 cm Lloyd Balabach [facility], [facility].; [place] [employer]. 06-09-2021 10:37-0500 Body mass index (BMI) [Ratio] 21.3 kg/m2 Lloyd Balabach [facility], [facility].; [employer], [employer]. 06-09-2021 10:37-0500 Body surface area Derived from formula 1.66 m2 Lloyd Ramirez Lacy [facility], [facility].; [employer], [employer]. 06-09-2021 10:37-0500 Body temperature 99.3 [degF] Lloyd Balabach [facility] [employer] [facility] HospitalDi[facility] Inc.; [employer]. Comment on above: Method: Tympanic 06-09-2021 10:37-0500 Body weight 58.97 kg Lloyd Balabach APPLICATION DBA [place] [employer] [facility] HospitalM[facility].; [employer]. 06-09-2021 10:37-0500 Diastolic blood pressure 84 mm[Hg] Lloyd Owenach APPLICATION DBA [place] [employer] [facility] HospitalM[facility] [employer].; [employer]. Comment on above: Patient Position: Sitting; Cuff Location : Left Arm; Cuff Size: Standard 06-09-2021 10:37-0500 Heart rate 78 /min Lloyd Balabach APPLICATION DBA [facility].; [facility], [facility]. Comment on above: Pattern: Regular 06-09-2021 10:37-0500 Inhaled oxygen concentration 20 % Lloyd Ashley House [facility].; [facility], [facility]. Comment on above: Room air 06-09-2021 10:37-0500 Inhaled oxygen concentration 21 % Lloyd Ashley Lacy [facility], [facility].; [facility], [facility]. Comment on above: Room air 06-09-2021 10:37-0500 SaO2% (BldA) [Mass fraction] 98 % Lloyd Ashley Lacy [facility], [facility]. 06-09-2021 10:37-0500 Systolic blood pressure 122 mm[Hg] Lloyd House [facility].; [facility], [facility]. Comment on above: Patient Position: Sitting; Cuff Location : Left Arm; Cuff Size: Standard 02-17-2021 08:50-0400 Body height 166.37 cm Sandra Gauthier LPN [facility].; [facility], [facility]. 02-17-2021 08:50-0400 Body mass index (BMI) [Ratio] 20.81 kg/m2 Sandra Gauthier APPLICATION DBA [facility], [facility].; [facility], [facility]. 02-17-2021 08:50-0400 Body surface area Derived from formula 1.64 m2 Sandra Gauthier LPN [facility], [facility].; [facility], [facility]. 02-17-2021 08:50-0400 Body temperature 98.4 [degF] Sandra Gauthier LPN [facility], [facility].; [place] [employer] [facility], [facility]. Comment on above: Method: Tympanic 02-17-2021 08:50-0400 Body weight 57.61 kg Sandra Gauthier LPN [facility].; [facility], [facility]. 02-17-2021 08:50-0400 Diastolic blood pressure 78 mm[Hg] Sandra Gauthier LPN [facility], [facility].; [facility], [facility]. Comment on above: Patient Position: Sitting; Cuff Location : Left Arm; Cuff Size: Standard 02-17-2021 08:50-0400 Heart rate 60 /min Sandra Gauthier APPLICATION DBA [place] [employer] [facility], [facility].; [employer]. Comment on above: Pattern: Regular 02-17-2021 08:50-0400 Systolic blood pressure 117 mm[Hg] Sandra Gauthier APPLICATION DBA [place] [employer] [facility], [facility].; [facility]. Comment on above: Patient Position: Sitting; Cuff Location : Left Arm; Cuff Size: Standard 08-05-2020 14:59-0500 Body height 166.37 cm Neilee L Vess APPLICATION DBA [facility], [facility].; [employer], [employer]. 08-05-2020 14:59-0500 Body mass index (BMI) [Percentile] Per age and sex 52 % Neilee L Vess APPLICATION DBA [place] [employer] [facility], [facility].; [employer], [employer]. 08-05-2020 14:59-0500 Body mass index (BMI) [Ratio] 21.8 kg/m2 Neilee L Vess APPLICATION DBA [place] [employer] [facility], [facility].; [employer], [employer]. 08-05-2020 14:59-0500 Body surface area Derived from formula 1.67 m2 Neilee L Vess APPLICATION DBA [place] [employer] [facility], [facility].; [employer], [employer]. 08-05-2020 14:59-0500 Body temperature 98.7 [degF] Neilee L Vess APPLICATION DBA [place] [employer] [facility], [facility].; [employer], [employer]. Comment on above: Method: Tympanic 08-05-2020 14:59-0500 Body weight 60.33 kg Neilee L Vess APPLICATION DBA [place] [employer] [facility], [facility].; [employer], [employer]. 08-05-2020 14:59-0500 Diastolic blood pressure 91 mm[Hg] Neilee L Vess APPLICATION DBA [place], [employer].; [employer], [employer]. Comment on above: Patient Position: Sitting; Cuff Location : Right Arm; Cuff Size: Standard 08-05-2020 14:59-0500 Heart rate 76 /min Neilee L Vess APPLICATION DBA [place], [employer].; [facility]. Comment on above: Pattern: Regular 08-05-2020 14:59-0500 Systolic blood pressure 135 mm[Hg] Neilee Nereyda Nam APPLICATION DBA [place], [employer].; [employer], [employer]. Comment on above: Patient Position: Sitting; Cuff Location : Right Arm; Cuff Size: Standard 08-18-2019 13:40-0500 Body height 166.37 cm Anastasiiae Nereyda Nam APPLICATION DBA [place], [employer].; [employer], [employer]. 08-18-2019 13:40-0500 Body mass index (BMI) [Percentile] Per age and sex 46 % Neerrole Nereyda Nam APPLICATION DBA [place], [employer].; [employer], [employer] 08-18-2019 13:40-0500 Body mass index (BMI) [Ratio] 21.14 kg/m2 Neerrole L Viv [facility], Inc.; [employer], [employer]. 08-18-2019 13:40-0500 Body surface area Derived from formula 1.65 m2 Anastasiiae L Viv APPLICATION DBA [place], [employer].; [employer], [employer] 08-18-2019 13:40-0500 Body temperature 99 [degF] Anastasiiae Nereyda Nam APPLICATION DBA [place], [employer].; [employer], [employer]. Comment on above: Method: Tympanic 08-18-2019 13:40-0500 Body weight 58.51 kg Anastasiiae Nereyda Nam APPLICATION DBA [place], [employer].; [employer], [employer] 06-08-2019 09:01-0500 Body height 166.37 cm Rita English [facility], Inc.; [employer], [employer]. 06-08-2019 09:01-0500 Body temperature 98.5 [degF] Rita English [facility], [employer].; [facility]. Comment on above: Method: Tympanic 06-08-2019 09:01-0500 Diastolic blood pressure 85 mm[Hg] Rita English [facility], [facility].; [facility]. Comment on above: Patient Position: Sitting; Cuff Location : Left Arm; Cuff Size: Standard 06-08-2019 09:01-0500 Heart rate 90 /min Rita English [facility]PM[facility] CenterVIXXI Solutions, Inc.; [facility]. Comment on above: Pattern: Regular 06-08-2019 09:01-0500 Systolic blood pressure 119 mm[Hg] Rita English LPN [employer].; [facility]. Comment on above: Patient Position: Sitting; Cuff Location : Left Arm; Cuff Size: Standard 10-30-2018 08:110400 Body temperature 98 [degF] Rita English LPN [employer].; [facility]. Comment on above: Method: Tympanic 10-30-2018 08:11-0400 Body weight 53.52 kg Rita English LPN [employer], [employer].; [employer] 10-30-2018 08:11-0400 Inhaled oxygen concentration 20 % Rita English LPN [employer], [employer].; [employer] Comment on above: Room air 10-30-2018 08:110400 Inhaled oxygen concentration 21 % Rita English LPN [employer], [employer].; [facility]. Comment on above: Room air 10-30-2018 08:11-0400 SaO2% (BldA) [Mass fraction] 97 % Rita English LPN [place], [employer].; [employer] 06-20-2018 10:07-0500 Body height 166.37 cm Rita English LPN [employer], [employer].; [employer], [employer] 06-20-2018 10:07-0500 Body mass index (BMI) [Percentile] Per age and sex 41 % Rita English LPN [employer], [employer].; [employer], [employer]. 06-20-2018 10:07-0500 Body mass index (BMI) [Ratio] 20.41 kg/m2 Rita English APPLICATION DBA [place], [employer] 06-20-2018 10:07-0500 Body surface area Derived from formula 1.63 m2 Rita English LPN [employer], [employer].; [facility]. 06-20-2018 10:07-0500 Body temperature 99 [degF] Rita English [facility].; [facility]. Comment on above: Method: Tympanic 06-20-2018 10:07-0500 Body weight 56.5 kg Rita English [facility] [employer] 06-20-2018 10:07-0500 Heart rate 84 /min Rita Curieldaniel [facility].; [facility]. Comment on above: Pattern: Regular 06-20-2018 10:07-0500 Inhaled oxygen concentration 20 % Rita Juddchery [facility].; [facility]. Comment on above: Room air 06-20-2018 10:07-0500 Inhaled oxygen concentration 21 % Rita Curieldaniel REINOSO [employer].; [facility]. Comment on above: Room air 06-20-2018 10:07-0500 SaO2% (BldA) [Mass fraction] 98 % Rita English APPLICATION DBA [employer].; [facility]. 04-22-2018 09:59-0400 Body height 166.37 cm [employer] Work Phone: [employer]; [facility]. 04-22-2018 09:59-0400 Body mass index (BMI) [Percentile] Per age and sex 45 % Scards PA-C Work Phone: [employer]; [facility]. 04-22-2018 09:59-0400 Body mass index (BMI) [Ratio] 20.65 kg/m2 Scards PA-C Work Phone: [employer]; [facility]. 04-22-2018 09:59-0400 Body surface area Derived from formula 1.63 m2 Anna Marie Sales PA-C Work Phone: [employer]; [facility]. 04-22-2018 09:59-0400 Body temperature 99.2 [degF] Anna Marie Sales PA-C Work Phone: [employer]; [facility]. 04-22-2018 09:59-0400 Body weight 57.15 kg Anna Marie Sales PA-C Work Phone: [employer]; [facility]. 04-22-2018 09:59-0400 Inhaled oxygen concentration 20 % Anna Marie Sales PA-C Work Phone: [employer]; [facility]. Comment on above: Room air 04-22-2018 09:59-0400 Inhaled oxygen concentration 21 % Anna Marie Sales PA-C Work Phone: [employer]; [facility]. Comment on above: Room air 04-22-2018 09:59-0400 SaO2% (BldA) [Mass fraction] 97 % Anna Marie Sales PA-C Work Phone: [employer]; [facility]. 04-14-2018 14:59-0400 Body height 166.37 cm Conchita Hawthorne RN [facility].; [facility]. 04-14-2018 14:59-0400 Body mass index (BMI) [Percentile] Per age and sex 45 % Conchita Hawthorne RN [facility].; [facility]. 04-14-2018 14:59-0400 Body mass index (BMI) [Ratio] 20.66 kg/m2 Conchita Hawthorne RN [facility].; [facility]. 04-14-2018 14:59-0400 Body surface area Derived from formula 1.64 m2 Conchita Hawthorne RN [facility].; [facility]. 04-14-2018 14:59-0400 Body temperature 99.3 [degF] Conchita Hawthorne RN [facility].; [facility]. Comment on above: Method: Tympanic 04-14-2018 14:59-0400 Body weight 57.2 kg Conchita Hawthorne RN [place] [employer], [employer].; [facility]. 01-28-2018 09:25-0400 Body height 309.88 cm Neilee Nereyda Nam APPLICATION DBA [place], [employer].; [facility]. 01-28-2018 09:25-0400 Body mass index (BMI) [Percentile] Per age and sex 0 % Neilee L Vess APPLICATION DBA [place], [employer].; [facility]. 01-28-2018 09:25-0400 Body mass index (BMI) [Ratio] 3.09 kg/m2 Neilee L Vess APPLICATION DBA [place], [employer].; [employer]. 01-28-2018 09:25-0400 Body surface area Derived from formula 1.94 m2 Orilee L Vess APPLICATION DBA [place], [employer].; [facility]. 01-28-2018 09:25-0400 Body weight 29.71 kg Neilee L Viv APPLICATION DBA [place], [employer].; [facility]. 01-28-2018 09:25-0400 Diastolic blood pressure 67 mm[Hg] Neilee L Vess APPLICATION DBA [employer].; [facility]. Comment on above: Patient Position: Sitting; Cuff Location : Left Arm; Cuff Size: Standard 01-28-2018 09:25-0400 Heart rate 67 /min SpazioDatierrole L Viv APPLICATION DBA [place], [employer].; [facility]. Comment on above: Pattern: Regular 01-28-2018 09:25-0400 Systolic blood pressure 107 mm[Hg] Neilee L Vess APPLICATION DBA [employer].; [facility]. Comment on above: Patient Position: Sitting; Cuff Location : Left Arm; Cuff Size: Standard 11-06-2016 08:32-0400 Body temperature 98.8 [degF] Neilee L Viv APPLICATION DBA [employer].; [facility]. Comment on above: Method: Tympanic 11-06-2016 08:32-0400 Body weight 55.79 kg Neilee L Vess APPLICATION DBA [place], [employer].; [facility]. 11-06-2016 08:32-0400 Diastolic blood pressure 88 mm[Hg] Neilee L Vess APPLICATION DBA [facility].; [facility]. Comment on above: Patient Position: Sitting; Cuff Location : Right Arm; Cuff Size: Standard 11-06-2016 08:32-0400 Heart rate 70 /min Neilee L Vess APPLICATION DBA [employer] Comment on above: Pattern: Regular 11-06-2016 08:32-0400 Systolic blood pressure 141 mm[Hg] Neilee L Vess APPLICATION DBA [facility].; [facility]. Comment on above: Patient Position: Sitting; Cuff Location : Right Arm; Cuff Size: Standard 10-18-2016 14:55-0400 Body height 166.37 cm Conchita Hawthorne RN [facility].; [facility]. 10-18-2016 14:55-0400 Body mass index (BMI) [Percentile] Per age and sex 50 % Conchita Hawthorne RN [employer].; [facility]. 10-18-2016 14:55-0400 Body mass index (BMI) [Ratio] 20.37 kg/m2 Conchita Hawthorne RN [facility].; [facility]. 10-18-2016 14:55-0400 Body surface area Derived from formula 1.63 m2 Conchita Hawthorne RN [facility].; [facility]. 10-18-2016 14:55-0400 Body temperature 98.2 [degF] Conchita Hawthorne RN [facility].; [facility]. Comment on above: Method: Tympanic 10-18-2016 14:55-0400 Body weight 56.38 kg Conchita Hawthorne RN [facility].; [facility]. 10-04-2016 14:42-0400 Body height 166.37 cm Conchita Hawthorne RN [facility].; [facility]. 10-04-2016 14:42-0400 Body mass index (BMI) [Percentile] Per age and sex 48 % Conchita Hawthorne RN [employer].; [facility]. 10-04-2016 14:42-0400 Body mass index (BMI) [Ratio] 20.16 kg/m2 Conchita Hawthorne RN [employer].; [facility]. 10-04-2016 14:42-0400 Body surface area Derived from formula 1.62 m2 Conchita Hawthorne RN [employer].; [facility]. 10-04-2016 14:42-0400 Body temperature 99.8 [degF] Conchita Hawthorne RN [facility].; [facility]. Comment on above: Method: Tympanic 10-04-2016 14:42-0400 Body weight 55.79 kg Conchita Hawthorne RN [facility].; [facility]. 05-09-2016 13:18-0400 Body height 166.37 cm Conchita Hawthorne RN [facility].; [facility]. 05-09-2016 13:18-0400 Body mass index (BMI) [Percentile] Per age and sex 43 % Conchita Hawthorne RN [employer].; [facility]. 05-09-2016 13:18-0400 Body mass index (BMI) [Ratio] 19.62 kg/m2 Conchita Hawthorne RN [employer].; [facility]. 05-09-2016 13:18-0400 Body surface area Derived from formula 1.6 m2 Conchita Hawthorne RN [employer].; [facility]. 05-09-2016 13:18-0400 Body temperature 99.3 [degF] Conchita Hawthorne RN [facility].; [facility]. Comment on above: Method: Tympanic 05-09-2016 13:18-0400 Body weight 54.3 kg Conchita Hawthorne RN [facility].; [facility]. 05-09-2016 13:18-0400 Heart rate 118 /min Conchita Hawthorne RN [facility].; [facility]. Comment on above: Pattern: Regular 05-09-2016 13:18-0400 Inhaled oxygen concentration 20 % Conchita Hawthorne RN [employer].; [facility]. Comment on above: Room air 05-09-2016 13:18-0400 Inhaled oxygen concentration 21 % Conchita Hawthorne RN [employer].; [facility]. Comment on above: Room air 05-09-2016 13:18-0400 SaO2% (BldA) [Mass fraction] 97 % Conchita Hawthorne RN [employer].; [facility]. 04-04-2016 10:44-0400 Body height 166.37 cm Mandi Maldonado RN Work Phone: [employer].; [facility]. 04-04-2016 10:44-0400 Body mass index (BMI) [Percentile] Per age and sex 40 % Mandi Maldonado RN Work Phone: [employer].; [facility]. 04-04-2016 10:44-0400 Body mass index (BMI) [Ratio] 19.34 kg/m2 Mandi Maldonado RN Work Phone: [employer].; [facility]. 04-04-2016 10:44-0400 Body surface area Derived from formula 1.59 m2 Mandi Maldonado RN Work Phone: [employer].; [facility]. 04-04-2016 10:44-0400 Body temperature 99.1 [degF] Mandi Maldonado RN Work Phone: [employer].; [facility]. Comment on above: Method: Tympanic 04-04-2016 10:44-0400 Body weight 53.52 kg Mandi Maldonado RN Work Phone: [facility]. 04-04-2016 10:44-0400 Inhaled oxygen concentration 20 % Mandi Maldonado RN Work Phone: [facility]. Comment on above: Room air 04-04-2016 10:44-0400 Inhaled oxygen concentration 21 % Mandi Maldonado RN Work Phone: [employer].; [facility]. Comment on above: Room air 04-04-2016 10:44-0400 SaO2% (BldA) [Mass fraction] 99 % Mandi Maldonado RN Work Phone: [employer].; [facility]. 03-21-2016 10:53-0400 Body height 165.74 cm Conchita Hawthorne RN [employer].; [facility]. 03-21-2016 10:53-0400 Body mass index (BMI) [Percentile] Per age and sex 49 % Conchita Hawthorne RN [employer].; [facility]. 03-21-2016 10:53-0400 Body mass index (BMI) [Ratio] 19.96 kg/m2 Conchita Hawthorne RN [employer].; [facility]. 03-21-2016 10:53-0400 Body surface area Derived from formula 1.6 m2 Conchita Hawthorne RN [employer].; [facility]. 03-21-2016 10:53-0400 Body temperature 98 [degF] Conchita Hawthorne RN [facility]. Comment on above: Method: Tympanic 03-21-2016 10:53-0400 Body weight 54.84 kg Conchita Hawthorne RN [facility] [employer]. 03-21-2016 10:53-0400 Diastolic blood pressure 73 mm[Hg] Conchita Hawthorne RN [facility] [employer]. Comment on above: Patient Position: Sitting; Cuff Location : Left Arm; Cuff Size: Standard 03-21-2016 10:53-0400 Heart rate 59 /min Conchita Hawthorne RN [facility] [employer]. Comment on above: Pattern: Regular 03-21-2016 10:53-0400 Systolic blood pressure 112 mm[Hg] Conchita Hawthorne RN [facility] [employer]. Comment on above: Patient Position: Sitting; Cuff Location : Left Arm; Cuff Size: Standard 11-07-2015 11:47-0400 Body height 163.83 cm Anna Marie Sales PA-C Work Phone: [employer]; [facility]. 11-07-2015 11:47-0400 Body mass index (BMI) [Percentile] Per age and sex 44 % Anna Marie Sales PA-C Work Phone: [facility]; [facility]. 11-07-2015 11:47-0400 Body mass index (BMI) [Ratio] 19.43 kg/m2 Anna Marie Sales PA-C Work Phone: [facility]; [facility]. 11-07-2015 11:47-0400 Body surface area Derived from formula 1.55 m2 Anna Marie Sales PA-C Work Phone: [facility]; [facility]. 11-07-2015 11:47-0400 Body temperature 99.6 [degF] Anna Marie Sales PA-C Work Phone: [employer]; [facility]. Comment on above: Method: Tympanic 11-07-2015 11:47-0400 Body weight 52.16 kg Anna Marie Sales PA-C Work Phone: [employer]; [facility]. 11-07-2015 11:47-0400 Diastolic blood pressure 66 mm[Hg] Anna Marie Sales PA-C Work Phone: [facility]; [facility]. Comment on above: Patient Position: Sitting; Cuff Location : Right Arm; Cuff Size: Standard 11-07-2015 11:47-0400 Heart rate 69 /min Anna Marie Sales PA-C Work Phone: [employer]; [facility] Comment on above: Pattern: Regular 11-07-2015 11:47-0400 Systolic blood pressure 128 mm[Hg] Anna Marie Sales PA-C Work Phone: [facility]. Comment on above: Patient Position: Sitting; Cuff Location : Right Arm; Cuff Size: Standard 02-09-2015 14:51-0400 Body height 164.47 cm Conchita Hawthorne RN [facility] [employer]. 02-09-2015 14:51-0400 Body mass index (BMI) [Percentile] Per age and sex 41 % Conchita Hawthorne RN [facility] [employer]. 02-09-2015 14:51-0400 Body mass index (BMI) [Ratio] 18.78 kg/m2 Conchita Hawthorne RN [facility] [employer]. 02-09-2015 14:51-0400 Body surface area Derived from formula 1.54 m2 Conchita Hawthorne RN [facility] [employer]. 02-09-2015 14:51-0400 Body temperature 98.4 [degF] Conchita Hawthorne RN [facility] [employer]. Comment on above: Method: Tympanic 02-09-2015 14:51-0400 Body weight 50.8 kg Conchita Hawthorne RN [facility] [employer]. 02-09-2015 14:51-0400 Diastolic blood pressure 62 mm[Hg] Conchita Hawthorne RN [facility] [employer]. Comment on above: Patient Position: Sitting; Cuff Location : Left Arm; Cuff Size: Standard 02-09-2015 14:51-0400 Heart rate 62 /min Conchita Hawthorne RN [facility] [employer]. Comment on above: Pattern: Regular 02-09-2015 14:51-0400 Systolic blood pressure 104 mm[Hg] Conchita Hawthorne RN [facility] [employer]. Comment on above: Patient Position: Sitting; Cuff Location : Left Arm; Cuff Size: Standard 11-13-2013 08:09-0400 Body height 162.56 cm Rita English LPN [employer] [employer] 11-13-2013 08:09-0400 Body mass index (BMI) [Percentile] Per age and sex 31 % [facility].; [employer] 11-13-2013 08:09-0400 Body mass index (BMI) [Ratio] 17.38 kg/m2 Rita English [facility] [employer] 11-13-2013 08:09-0400 Body surface area Derived from formula 1.46 m2 Rita Curieldaniel [facility] [employer], [employer]. 11-13-2013 08:09-0400 Body temperature 98.3 [degF] Rita [facility]. Comment on above: Method: Tympanic 11-13-2013 08:09-0400 Body weight 45.93 kg Rita English APPLICATION DBA [employer] 01-30-2013 11:02-0400 Body height 158.75 cm Mandi Maldonado RN Work Phone: [facility].; [employer] 01-30-2013 11:02-0400 Body mass index (BMI) [Percentile] Per age and sex 28 % Mandi Maldonado RN Work Phone: [employer] [employer] 01-30-2013 11:02-0400 Body mass index (BMI) [Ratio] 16.74 kg/m2 Mandi Maldonado RN Work Phone: [facility]. 01-30-2013 11:02-0400 Body surface area Derived from formula 1.39 m2 Mandi Maldonado RN Work Phone: [facility].; [employer] 01-30-2013 11:02-0400 Body weight 42.18 kg Mandi Maldonado RN Work Phone: [employer]. 01-30-2013 11:02-0400 Diastolic blood pressure 70 mm[Hg] Mandi Maldonado RN Work Phone: [facility]. Comment on above: Patient Position: Sitting; Cuff Location : Right Arm; Cuff Size: Standard 01-30-2013 11:02-0400 Heart rate 70 /min Mandi Maldonado RN Work Phone: [place] [employer] [facility]. Comment on above: Pattern: Regular 01-30-2013 11:02-0400 Systolic blood pressure 109 mm[Hg] Mandi Maldonado RN Work Phone: [place] [employer] [facility], [employer].; [facility]. Comment on above: Patient Position: Sitting; Cuff Location : Right Arm; Cuff Size: Standard 08-01-2012 08:43-0500 Body height 152.4 cm Rita English LPN [facility], [facility] [employer] 08-01-2012 08:43-0500 Body mass index (BMI) [Percentile] Per age and sex 61 % Rita English LPN [place] [employer] [facility], [facility].; [employer] 08-01-2012 08:43-0500 Body mass index (BMI) [Ratio] 18.6 kg/m2 Rita English LPN [facility], [facility] [employer], [employer] 08-01-2012 08:43-0500 Body surface area Derived from formula 1.36 m2 Rita English LPN [place] [employer] [facility], [facility].; [employer] 08-01-2012 08:43-0500 Body temperature 98 [degF] Rita English LPN [place] [employer] [facility], [facility].; [employer], [employer]. Comment on above: Method: Tympanic 08-01-2012 08:43-0500 Body weight 43.21 kg Rita English LPN [place] [employer] [facility], [facility].; [employer], [employer]. 08-01-2012 08:43-0500 Inhaled oxygen concentration 20 % Rita English LPN [place] [employer] [facility], [facility]. Comment on above: Room air 08-01-2012 08:43-0500 Inhaled oxygen concentration 21 % Ritaaidan English LPN [employer]. Comment on above: Room air 08-01-2012 08:43-0500 SaO2% (BldA) [Mass fraction] 99 % Rita Rahmankwame REINOSO [employer] [employer]. 05-07-2012 08:39-0400 Body height 152.4 cm Anna Marie Sales PA-C Work Phone: [employer]; [facility]. 05-07-2012 08:39-0400 Body mass index (BMI) [Percentile] Per age and sex 39 % Anna Marie Sales PA-C Work Phone: [employer]; [facility]. 05-07-2012 08:39-0400 Body mass index (BMI) [Ratio] 16.99 kg/m2 Anna Marie Sales PA-C Work Phone: [employer]; [facility]. 05-07-2012 08:39-0400 Body surface area Derived from formula 1.31 m2 Anna Marie Sales PA-C Work Phone: [employer]; [facility]. 05-07-2012 08:39-0400 Body temperature 98.8 [degF] Anna Marie Sales PA-C Work Phone: [employer]; [facility]. Comment on above: Method: Tympanic 05-07-2012 08:39-0400 Body weight 39.46 kg Anna Marie Sales PA-C Work Phone: [employer]; [facility]. 05-07-2012 08:39-0400 Inhaled oxygen concentration 20 % Anna Marie Sales PA-C Work Phone: [employer]; [facility]. Comment on above: Room air 05-07-2012 08:39-0400 Inhaled oxygen concentration 21 % Anna Marie Sales PA-C Work Phone: [facility]. Comment on above: Room air 05-07-2012 08:39-0400 SaO2% (BldA) [Mass fraction] 99 % Anna Marie Sales PA-C Work Phone: [facility]. 04-30-2012 08:33-0400 Body height 152.4 cm Lloyd Ramirez Lacy [facility] [employer] [facility].; [facility]. 04-30-2012 08:33-0400 Body mass index (BMI) [Percentile] Per age and sex 39 % Lloyd Balabach [facility]. 04-30-2012 08:33-0400 Body mass index (BMI) [Ratio] 16.99 kg/m2 Lloyd Ramirez Lacy [facility]. 04-30-2012 08:33-0400 Body surface area Derived from formula 1.31 m2 Lloyd Ramirez Lacy [facility]. 04-30-2012 08:33-0400 Body temperature 99.8 [degF] Lloyd Ramirez Lacy [facility]. Comment on above: Method: Tympanic 04-30-2012 08:33-0400 Body weight 39.46 kg Lloyd Ramirez Lacy APPLICATION DBA [facility]. 11-22-2011 13:28-0400 Body height 149.86 cm Kristin Pérez APPLICATION DBA Work Phone: [facility]. 11-22-2011 13:28-0400 Body mass index (BMI) [Percentile] Per age and sex 46 % Kristin Pérez LPN Work Phone: [employer]. 11-22-2011 13:28-0400 Body mass index (BMI) [Ratio] 17.17 kg/m2 Kristin Pérez LPN Work Phone: [employer]; [facility]. 11-22-2011 13:28-0400 Body surface area Derived from formula 1.28 m2 Kristin Pérez LPN Work Phone: [employer]; [facility]. 11-22-2011 13:28-0400 Body temperature 98.7 [degF] Kristin Pérez LPN Work Phone: [employer]; [facility]. Comment on above: Method: Tympanic 11-22-2011 13:28-0400 Body weight 38.56 kg Kristin Pérez LPN Work Phone: [employer]; [facility]. 11-22-2011 13:28-0400 Heart rate 98 /min Kristin Pérez LPN Work Phone: [employer]; [facility]. Comment on above: Pattern: Regular 11-22-2011 13:28-0400 Inhaled oxygen concentration 20 % Kristin Pérez LPN Work Phone: [employer]; [facility]. Comment on above: Room air 11-22-2011 13:28-0400 Inhaled oxygen concentration 21 % Kristin Pérez LPN Work Phone: [employer]; [facility]. Comment on above: Room air 11-22-2011 13:28-0400 SaO2% (BldA) [Mass fraction] 97 % Kristin Pérez LPN Work Phone: [employer]; [facility]. 07-26-2011 08:48-0500 Body height 146.05 cm Conchita Hawthorne RN [employer]. 07-26-2011 08:48-0500 Body mass index (BMI) [Percentile] Per age and sex 56 % Conchita Hawthorne RN [facility]. 07-26-2011 08:48-0500 Body mass index (BMI) [Ratio] 17.61 kg/m2 Conchita Hawthorne RN [facility].; [employer]. 07-26-2011 08:48-0500 Body surface area Derived from formula 1.24 m2 Conchita Hawthorne RN [place] [employer] [facility].; [employer] 07-26-2011 08:48-0500 Body temperature 97 [degF] Conchita Hawthorne RN [place] [employer] [facility].; [employer]. Comment on above: Method: Tympanic 07-26-2011 08:48-0500 Body weight 37.56 kg Conchita Hawthorne RN [place] [employer] [facility].; [employer] 06-26-2011 15:45-0500 Body height 146.05 cm Neilee L Vess [facility]. 06-26-2011 15:45-0500 Body mass index (BMI) [Percentile] Per age and sex 61 % Neilee L Vess [facility]. 06-26-2011 15:45-0500 Body mass index (BMI) [Ratio] 17.86 kg/m2 Neilee L Vess APPLICATION D[employer]. 06-26-2011 15:45-0500 Body surface area Derived from formula 1.25 m2 Neilee L Vess APPLICATION D[employer]. 06-26-2011 15:45-0500 Body temperature 98.6 [degF] Neilee L Vess APPLICATION DBA [employer]. 06-26-2011 15:45-0500 Body weight 38.1 kg Neilee L Vess [employer]PLICATION [employer]. 05-30-2011 08:40-0500 Body height 148.59 cm Lloyd House LPN [facility] [employer]. 05-30-2011 08:40-0500 Body mass index (BMI) [Percentile] Per age and sex 35 % Lloyd Balabach [facility], [facility].; [employer] 05-30-2011 08:40-0500 Body mass index (BMI) [Ratio] 16.23 kg/m2 Lloyd Owenach [facility], Inc.; [employer] 05-30-2011 08:40-0500 Body surface area Derived from formula 1.23 m2 Lloyd Balabach [facility] [employer] [facility], [facility].; [employer] 05-30-2011 08:40-0500 Body temperature 97.3 [degF] Lloyd Ramirez [facility].; [facility]. Comment on above: Method: Tympanic 05-30-2011 08:40-0500 Body weight 35.83 kg Llody Ramirez Lacy [facility].; [employer] 05-17-2011 08:59-0400 Body height 146.05 cm AMT PA-C Work Phone: [facility].; [facility]. 05-17-2011 08:59-0400 Body mass index (BMI) [Percentile] Per age and sex 37 % [employer] PA-C Work Phone: [facility]. 05-17-2011 08:59-0400 Body mass index (BMI) [Ratio] 16.33 kg/m2 AMT PA-C Work Phone: [facility].; [facility]. 05-17-2011 08:59-0400 Body surface area Derived from formula 1.21 m2 AMT PA-C Work Phone: [employer]. 05-17-2011 08:59-0400 Body temperature 98.3 [degF] AMT PA-C Work Phone: [employer]. Comment on above: Method: Tympanic 05-17-2011 08:59-0400 Body weight 34.84 kg AMT PA-C Work Phone: [employer]; [facility]. 05-17-2011 08:59-0400 Inhaled oxygen concentration 20 % AMT PA-C Work Phone: [employer]; [facility]. Comment on above: Room air 05-17-2011 08:59-0400 Inhaled oxygen concentration 21 % AMT PA-C Work Phone: [employer]; [facility]. Comment on above: Room air 05-17-2011 08:59-0400 SaO2% (BldA) [Mass fraction] 98 % AMT PA-C Work Phone: [employer]; [facility]. 03-05-2011 15:03-0400 Body height 144.78 cm Conchita Hawthorne RN [facility]. 03-05-2011 15:03-0400 Body mass index (BMI) [Percentile] Per age and sex 34 % Conchita Hawthorne RN [facility] [employer]. 03-05-2011 15:03-0400 Body mass index (BMI) [Ratio] 16.1 kg/m2 Conchita Hawthorne RN [employer]. 03-05-2011 15:03-0400 Body surface area Derived from formula 1.18 m2 Conchita Hawthorne RN [facility]. 03-05-2011 15:03-0400 Body temperature 98.5 [degF] Conchita Hawthorne RN [facility].; [facility]. Comment on above: Method: Tympanic 03-05-2011 15:03-0400 Body weight 33.75 kg Conchita Hawthorne RN [employer]. 10-09-2010 16:19-0400 Body height 142.24 cm Mandi Maldonado RN Work Phone: [facility] 10-09-2010 16:19-0400 Body mass index (BMI) [Percentile] Per age and sex 35 % Mandi Maldonado RN Work Phone: [employer]. 10-09-2010 16:19-0400 Body mass index (BMI) [Ratio] 15.92 kg/m2 Mandi Maldonado RN Work Phone: [employer]. 10-09-2010 16:19-0400 Body surface area Derived from formula 1.14 m2 Mandi Maldonado RN Work Phone: [employer]. 10-09-2010 16:19-0400 Body temperature 98.1 [degF] Mandi Maldonado RN Work Phone: [facility].; [facility]. Comment on above: Method: Tympanic 10-09-2010 16:19-0400 Body weight 32.21 kg Mandi Maldonado RN Work Phone: [employer]. 09-07-2010 13:03-0500 Body height 139.7 cm Mandi Maldonado RN Work Phone: [facility].; [facility]. 09-07-2010 13:03-0500 Body mass index (BMI) [Percentile] Per age and sex 38 % Mandi Maldonado RN Work Phone: [facility].; [facility]. 09-07-2010 13:03-0500 Body mass index (BMI) [Ratio] 16.04 kg/m2 Mandi Maldonado RN Work Phone: [facility].; [facility]. 09-07-2010 13:03-0500 Body surface area Derived from formula 1.11 m2 Mandi Maldonado RN Work Phone: [employer]; [facility] 09-07-2010 13:03-0500 Body temperature 98.1 [degF] Mandi Maldonado RN Work Phone: [employer]; [facility]. Comment on above: Method: Tympanic 09-07-2010 13:03-0500 Body weight 31.3 kg Mandi Maldonado RN Work Phone: [employer]; [facility]. 07-07-2010 08:41-0500 Body height 140.34 cm Anna Marie Sales PA-C Work Phone: [employer]; [facility] 07-07-2010 08:41-0500 Body mass index (BMI) [Percentile] Per age and sex 46 % Anna Marie Sales PA-C Work Phone: [employer]; [facility]. 07-07-2010 08:41-0500 Body mass index (BMI) [Ratio] 16.35 kg/m2 Anna Marie Sales PA-C Work Phone: [employer]; [facility]. 07-07-2010 08:41-0500 Body surface area Derived from formula 1.13 m2 Anna Marie Sales PA-C Work Phone: [employer]; [facility] 07-07-2010 08:41-0500 Body temperature 99 [degF] Anna Marie Sales PA-C Work Phone: [employer]; [facility] 07-07-2010 08:41-0500 Body weight 32.21 kg Anna Marie Sales PA-C Work Phone: [employer]; [facility] Encounters Encounter Date Encounter Type Care Provider Facility Start: 12-23-2024 ambulatory Bety Chu Facility :[facility] Start: 12-21-2024 End: 12-21-2024 Patient encounter procedure Bety Chu CNM -[facility] Work Phone: Start: 12-21-2024 End: 12-21-2024 ambulatory Anna Marie Sales PATRICIA Work Phone: [facility] Work Phone: Start: 12-16-2024 End: 12-16-2024 Office outpatient visit 15 minutes Anna Marie Sales PA-C Work Phone: [facility] Start: 11-19-2024 End: 11-19-2024 Patient encounter procedure Bety Chu [facility] Work Phone: Start: 11-19-2024 End: 11-19-2024 ambulatory Anna Marie GOMEZ Facility:[facility] Start: 11-19-2024 End: 11-19-2024 ambulatory Bety Chu Facility:[facility] Start: 11-03-2024 End: 11-03-2024 Patient encounter procedure Mechelle DOWNING -[facility] Work Phone: Start: 11-03-2024 End: 11-03-2024 ambulatory Anna Marie Sales PATRICIA Facility:[facility] Start: 06-12-2024 End: 06-12-2024 Patient encounter procedure Anna Marie Headley Henrry MARTINEZ Work Phone[facility] Start: 06-12-2024 End: 06-12-2024 Periodic preventive med est patient 18-39 yrs Anna Marie Henrry GOMEZ-Gia Work Phone: [employer] Start: 06-12-2024 Patient encounter status Madina ghotra APPLICATION DBA [facility] [employer]. Start: 06-12-2024 Review Anna Marie GOMEZ-Gia Work Phone: [employer] Start: 03-30-2024 End: 03-30-2024 Refill Elijah Lyman APRN.[employer] Work Phone: OB/Gynecology Comment on above: Med Change Request Start: 03-30-2024 End: 03-30-2024 ambulatory Elijah Lyman APRN.[employer] Work Phone: OB/Gynecology Comment on above: Dyspareunia in femal e (Primary Dx) Start: 03-30-2024 End: 03-30-2024 Telemedicine consultation with patient Elijah Lyman APRN.[employer] Work Phone: OB/Gynecology Start: 03-20-2024 End: 03-20-2024 ambulatory ELIJAH LYMAN OB/Gynecology Start: 03-20-2024 End: 03-20-2024 Patient encounter procedure [employer] OB/Gynecology Start: 03-11-2024 End: 03-11-2024 ambulatory ELIJAH LYMAN Facility:[facility] Start: 03-11-2024 End: 03-11-2024 Patient encounter procedure Elijah Lyman APRN.[employer] Work Phone: OB/Gynecology Comment on above: Dyspareunia in femal e (Primary Dx); Screen for STD (sexually transmitted disease); Encounter for screening for malignant neoplasm of cervix Start: 01-03-2024 End: 01-03-2024 Orders Anna Marie Sales PA-C Work Phone: [facility]. Start: 12-30-2023 End: 12-30-2023 Orders Anna Marie Sales PA-C Work Phone: [facility]. Start: 05-01-2023 End: 05-01-2023 Medication Anna Marie Sales PA-C Work Phone: [facility]. Start: 04-15-2023 End: 04-15-2023 Orders Anna Marie Sales PA-C Work Phone: [facility]. Start: 12-14-2022 End: 12-14-2022 Orders Anna Marie Sales PA-C Work Phone: [facility]. Start: 12-05-2022 End: 12-05-2022 Orders Anna Marie Sales PA-C Work Phone: [facility]. Start: 11-30-2022 End: 12-03-2022 Orders Anna Marie Sales PA-C Work Phone: [facility]. Start: 11-28-2022 End: 11-28-2022 Patient encounter procedure Anna Marie Sales PA-C Work Phone: [facility]. Start: 11-28-2022 End: 11-28-2022 Patient encounter status Anna Marie Sales PA-C Work Phone: [facility]. Start: 10-17-2022 End: 10-17-2022 ambulatory [facility] Work Phone: Start: 10-17-2022 End: 10-17-2022 Patient encounter procedure [facility] Start: 07-31-2022 End: 07-31-2022 Office outpatient visit 15 minutes Anna Marie Sales PA-C Work Phone: [facility]. Start: 01-29-2022 End: 01-29-2022 Office outpatient visit 15 minutes Anna Marie Sales PA-C Work Phone: [facility]. Start: 12-08-2021 End: 12-08-2021 Patient encounter procedure Anna Marie Sales PA-C Work Phone: [facility]. Start: 12-08-2021 End: 12-08-2021 Patient encounter status Anna Marie Sales PA-C Work Phone: [facility]. Start: 06-09-2021 End: 06-09-2021 Office outpatient visit 15 minutes Anna Marie Sales PA-C Work Phone: [facility]. Start: 02-17-2021 End: 02-17-2021 Office outpatient visit 15 minutes Anna Marie Sales PA-C Work Phone: [facility]. Start: 08-05-2020 End: 08-05-2020 Office outpatient visit 25 minutes Anna Marie Sales PA-C Work Phone: [facility]. Start: 08-18-2019 End: 08-18-2019 Office outpatient visit 25 minutes Anna Marie Sales PA-C Work Phone: [facility]. Start: 06-08-2019 End: 06-08-2019 Office outpatient visit 15 minutes Anna Marie Sales PA-C Work Phone: [facility]. Start: 12-18-2018 End: 12-18-2018 Patient encounter procedure NATALIA LIANG [facility] Start: 11-15-2018 End: 11-15-2018 Orders Anna Marie Sales PA-C Work Phone: [facility]. Start: 11-14-2018 End: 11-14-2018 Patient encounter procedure ANNA MARIE [facility] Start: 11-03-2018 End: 11-03-2018 Orders Anna Marie Sales PA-C Work Phone: [facility]. Start: 10-30-2018 End: 10-30-2018 Office outpatient visit 15 minutes Anna Marie Sales PA-C Work Phone: [facility]. Start: 06-23-2018 End: 06-23-2018 Orders Anna Marie Sales PA-C Work Phone: [facility]. Start: 06-20-2018 End: 06-22-2018 Office outpatient visit 15 minutes Anna Marie Sales PA-C Work Phone: [facility]. Start: 04-22-2018 End: 04-22-2018 Office outpatient visit 15 minutes Anna Marie Sales PA-C Work Phone: [facility]. Start: 04-14-2018 End: 04-14-2018 Office outpatient visit 25 minutes Anna Marie Sales PA-C Work Phone: [facility]. Start: 01-28-2018 End: 01-28-2018 Ambulatory [facility] Start: 01-28-2018 End: 01-28-2018 Patient encounter procedure Anna Marie Sales PA-C Work Phone: [employer] Start: 01-28-2018 End: 01-28-2018 Patient encounter status Jaziel Nam LPN [employer]. Start: 12-13-2016 End: 12-13-2016 Patient encounter procedure Anna Marie Sales PA-C Work Phone: [employer] Start: 11-06-2016 End: 11-06-2016 Office outpatient visit 15 minutes Anna Marie Sales PA-C Work Phone: [employer] Start: 10-18-2016 End: 10-18-2016 Patient encounter procedure Anna Marie Sales PA-C Work Phone: [employer]. Start: 10-04-2016 End: 10-04-2016 Patient encounter procedure Anna Marie Sales PA-C Work Phone: [employer] Start: 05-09-2016 End: 05-09-2016 Patient encounter procedure Anna Marie Sales PA-C Work Phone: [employer] Start: 04-25-2016 End: 04-25-2016 Medication Anna Marie Sales PA-C Work Phone: [facility]. Start: 04-04-2016 End: 04-04-2016 Patient encounter procedure Anna Marie Sales PA-C Work Phone: [employer] Start: 03-21-2016 End: 03-21-2016 Patient encounter procedure Anna Marie Sales PA-C Work Phone: [employer]. Start: 03-21-2016 End: 03-21-2016 Patient encounter status Conchita Hawthorne RN [employer] [employer]. Start: 11-07-2015 End: 11-07-2015 Office outpatient visit 25 minutes Anna Marie Sales PA-C Work Phone: [employer] Start: 02-09-2015 End: 02-09-2015 Patient encounter procedure Anna Marie Sales PA-C Work Phone: [facility] Start: 02-09-2015 End: 02-09-2015 Routine or child health check Anna Marie Sales PA-C Work Phone: [employer]. Start: 06-09-2014 End: 06-09-2014 Nursing evaluation of patient and report Anna Marie Sales PA-C Work Phone: [employer]. Start: 11-13-2013 End: 11-13-2013 Patient encounter procedure Anna Marie Sales PA-C Work Phone: [employer]. Start: 07-02-2013 End: 07-02-2013 Nursing evaluation of patient and report Anna Marie Sales PA-C Work Phone: [employer]. Start: 02-05-2013 End: 02-05-2013 Orders Anna Marie Sales PA-C Work Phone: [employer]. Start: 01-30-2013 End: 01-30-2013 Patient encounter procedure Anna Marie Sales PA-C Work Phone: [employer]. Start: 01-30-2013 End: 01-30-2013 Routine or child health check Mandi Maldonado RN Work Phone: [employer] [employer]. Start: 08-01-2012 End: 08-01-2012 Patient encounter procedure Anna Marie Sales PA-C Work Phone: [employer]. Start: 05-07-2012 End: 05-07-2012 Patient encounter procedure Anna Marie Sales PA-C Work Phone: [employer]. Start: 04-30-2012 End: 04-30-2012 Patient encounter procedure Anna Marie Sales PA-C Work Phone: [employer]. Start: 11-22-2011 End: 11-22-2011 Patient encounter procedure Anna Marie Sales PA-C Work Phone: [employer] Start: 07-26-2011 End: 07-26-2011 Patient encounter procedure Anna Marie Sales PA-C Work Phone: [employer]. Start: 06-26-2011 End: 06-26-2011 Patient encounter procedure Anna Marie Sales PA-C Work Phone: [employer]. Start: 05-30-2011 End: 05-30-2011 Patient encounter procedure Anna Marie Darlinger PA-C Work Phone: [employer]. Start: 05-17-2011 End: 05-17-2011 Patient encounter procedure Anna Marie Darlinger PA-C Work Phone: [employer]. Start: 03-05-2011 End: 03-05-2011 Patient encounter procedure Anna Marie Sales PA-C Work Phone: [employer]. Start: 10-09-2010 End: 10-09-2010 Patient encounter procedure Anna Marie Sales PA-C Work Phone: [employer] Start: 09-07-2010 End: 09-07-2010 Patient encounter procedure Anna Marie Sales PA-C Work Phone: [employer] Start: 09-07-2010 End: 09-07-2010 Routine infant or child health check Anna Marie Sales PA-C Work Phone: [employer] [employer]. Start: 07-07-2010 End: 07-07-2010 Patient encounter procedure Anna Marie Sales PA-C Work Phone: [employer] Routine infant or ch ild health check Ángela Fermin PA-C Work Phone: [facility] [employer] Routine infant or ch ild health check Rita English LPN [facility] [employer]. Procedures Date Procedure Procedure Detail Performing Clinician Start: 11-19-2024 Urine culture Anna Marie Rebekah jama PA Work Phone: Start: 11-19-2024 Hepatitis C antibody measurement Anna Marie GOMEZ Work Phone: Comment on above: Reactive: Presumptiv e evidence of antibodies to HCV. Follow CDC recommendations for supplemental testing.Non-Reactive: Antibodies to HCV were not detected; does not exclude the possibility of exposure to HCVReactive Results are presumptive evidence of antibodies to HCV. Follow CDC recommendations for supplemental testing.Order confirmation testing: HCV Quant by PCR testing - HCVPCR #[id number] Non Reactive: < 0.8 Equivocal: >/= 0.8 to < 1.0 Reactive: >/= 1.0The [facility] requires that a reactive/equivocal HCV antibody result be sent out for confirmation. HCV Quant by PCR testing. Start: 11-19-2024 Procedure Anna Marie Gomez lmjustin GOMEZ Work Phone: Comment on above: Test Ordered: [id number] TSH Receptor Antibody (TBII)TSH Receptor Antibody (TBII) <0.3 U/L ES Reference Range: .Reference Range:Antibody Titer:<1.0 U/L = Negative1.1 - 1.5 U/L = Equivocal>1.5 U/L = PositivePerformed at: [facility] [employer] [address] [id number] Director: Jeronimo Holden MD, Phone: [phone] at: [facility] [employer] [id number] Director: Sandeep Bae PhD, Phone: [phone] Start: 11-19-2024 Rubella IgG measurement Anna Marie Sales PATRICIA Work Phone: Comment on above: Antibody Result: Int erpretationNon-Reactive: Non- ImmuneReactive: ImmuneThe following results were obtained with the [employer] Rubella IgG assay. Results from assays of other manufacturers cannot be used interchangeably. Start: 11-19-2024 Serologic test for syphilis Anna Marie Sales PATRICIA Work Phone: Start: 06-12-2024 End: 06-12-2024 Depression screening Anna Marie Sales PA-C Work Phone: Start: 06-12-2024 End: 06-12-2024 Scr dep neg, no plan reqd Anna Marie Headley Palm er PA-C Work Phone: Start: 03-20-2024 Us pelvic nonobstetr ic real-time image complete Elijah Lyman [employer]CE[employer] Work Phone: Start: 06-21-2023 End: 06-21-2023 [place] Teeth Extraction Anna Marie Headley Sales PA-C Work Phone: Start: 12-05-2022 End: 12-13-2022 Us soft tissue head & neck real time imge docm Anna Marie Headley Sales PA-C Work Phone: Start: 11-28-2022 End: 11-28-2022 Depression screening Anna Marie Headley Sales PA-C Work Phone: Start: 11-28-2022 End: 11-28-2022 Scr dep neg, no plan reqd Anna Marie Headley Palm er PA-C Work Phone: Start: 10-17-2022 CT of face Start: 12-08-2021 End: 12-08-2021 Depression screening Anna Marie Headley Sales PA-C Work Phone: Start: 12-08-2021 End: 12-08-2021 Scr dep neg, no plan reqd Anna Marie Headley Palm er PA-C Work Phone: Start: 08-18-2019 End: 08-18-2019 Body mass index documented Ángela Gottlieb Robert camerons PA-C Work Phone: Start: 11-03-2018 End: 11-17-2018 Hepatobiliary syst imaging including gallbladder Anna Marie Headley Sales PA-C Work Phone: Start: 11-03-2018 End: 11-15-2018 Us abdominal real time w/image limited Anna Marie Headley Sales PA-C Work Phone: Start: 06-20-2018 End: 06-24-2018 Us soft tissue head & neck real time imge docm Anna Marie Headley Sales PA-C Work Phone: Start: 04-14-2018 End: 04-14-2018 Body mass index documented Ángela Jones lljillian PA-C Work Phone: Start: 01-28-2018 End: 02-10-2018 Radex entir thrc lmbr crv sac spi w/skull 1 vw Ángela Gottlieb Jeny PA-C Work Phone: Start: 04-04-2016 End: 04-30-2017 Pressurized/nonpressurized inhalation treatment Ángela Gottlieb Jeny PA-C Work Phone: Comment on above: PO RA s/p treatment - 97 Exam s/p treatment - rhonchi without wheezing Start: 02-09-2015 End: 02-09-2015 Screening test visual acuity quantitative bilat Ángela Gottlieb Jeny PA-C Work Phone: History of cholecystectomy S/P cholecyste ctomy Anna Marie GOMEZ Work Phone: Comment on above: 2018 Plan of Treatment Date Care Activity Detail Author Start: 03-11-2027 Screening for malign ant neoplasm of cervix Cervical Cancer Screening [facility] Start: 03-11-2025 GC (Gonorrhea) Scree lovely () GC (Gonorrhea) Screening () [facility] Start: 03-11-2025 Screening for Chlamy mya trachomatis Chlamydia Screening () [facility] Start: 06-12-2024 Comprehensive metabo lic panel CMP w/ GFR* (18482) Start: 12-Jun-2024 10:37-05:00 [facility] Start: 06-12-2024 Assay of ferritin FERRITIN (82 728) Start: 12-Jun-2024 10:37-05:00 Request [facility]; [facility] Start: 06-12-2024 Blood count complete auto&auto difrntl wbc CBC, PLATELETS & AUT DIFF (F) (91942) Start: 12-Jun-2024 10:37-05:00 [facility] Start: 06-12-2024 Assay of free thyroxine T4 CASANDRA E (95637) Start: 12-Jun-2024 10:36-05:00 Request [facility] [employer]. Start: 06-12-2024 Assay of thyroid stimulating hormone tsh TSH (THYROID STIMULATING HORMONE) (04953) Start: 12-Jun-2024 10:36-05:00 Request [employer]. Start: 06-12-2024 Patient encounter procedure Medical; [facility]YS[facility] Start: 12-Jun-2024 10:00-05:00 JUAN Sales Appointment Request [employer] Start: 03-30-2024 End: 03-30-2024 Follow-up encounter 03/30/2024 8:45 AM EDT [facility] OB/Gynecology [address] [place] [address] Elijah Lyman APRN.[employer] [address] [place] [address] us follow up OB/Gynecology Comment on above: us follow up Start: 03-22-2024 Covid-19 Vaccine ( season) Covid-19 Vaccine ( season) [facility] Start: 03-22-2024 Influenza vaccination Influenza Vacc ine (#1) [facility] Start: 03-20-2024 End: 03-20-2024 ambulatory 03/20/2024 9:00 AM EDT Procedure OB/Gynecology [address] [place] [address] Dyspareunia in female [N94.10] OB/Gynecology Comment on above: Dyspareunia in femal e [N94.10] Start: 03-11-2024 End: 03-11-2025 US Pelvis PELVIC US [facility] Anc Imaging Routine Dyspareunia in female Expected: 03/11/2024, Expires: 03/11/2025 [facility] Work Phone: Comment on above: Expected: 03/11/2024 , Expires: 03/11/2025 Start: 06-14-2024 Assay of thyroid stimulating hormone tsh [facility] Start: 01-03-2024 Nursing evaluation o f patient and report Medical; Nurse visit - TSH mjp [facility] Start: 03-Jan-2024 10:40-04:00 NURSE, FLOAT Appointment Request [facility] Start: 03-22-2023 Covid-19 Vaccine () Covid-19 Vaccine () [facility] Start: 2021 Screening for malign ant neoplasm of cervix Cervical Cancer Screening [facility] Start: 12-18-2019 Hepatitis B Vaccine (1 of 3 - 19+ 3-dose series) Hepatitis B Vaccine (1 of 3 - 19+ 3-dose series) [facility] Start: 12-18-2019 Urine microalbumin profile DTaP,Tdap,Td Vaccine (1 - Tdap) [facility] Start: 2018 Anxiety Screening Anxiety Screening [facility] Start: 2018 Depression Screening Depression Scre ening [facility] Start: 2018 GC (Gonorrhea) Scree lovely (18-24) GC (Gonorrhea) Screening (18-24) [facility] Start: 2018 Hepatitis C screening Hepatitis C Sc reening [facility] Start: 2018 HIV screening HIV Screening [facility] Start: 2018 Screening for Chlamy mya trachomatis Chlamydia Screening () [facility] Start: 2016 Meningococcal B Vacc ine: Consider Based On Risk (1 of 2 - Patient Seeks Protection) Meningococcal B Vaccine: Consider Based On Risk (1 of 2 - Patient Seeks Protection) [facility] Start: 12-18-2015 HPV Vaccine (1 - 3-d ose series) HPV Vaccine (1 - 3-dose series) [facility] Start: 2014 Peds To Adult Transi tion Annual Assessment Peds To Adult Transition Annual Assessment [facility] Start: 2012 Peds To Adult Transi tion Initial Discussion Peds To Adult Transition Initial Discussion [facility] BACTERIAL VAGINOSIS NAAT BACTERI AL VAGINOSIS NAAT Lab Routine Dyspareunia in female 03/11/2024 8:10 AM EDT [facility] FLORIDALMA/TRICHOMONAS NAAT FLORIDALMA /TRICHOMONAS NAAT Lab Routine Dyspareunia in female 03/11/2024 8:10 AM EDT [facility] Chlamydia trachomatis+Neisseria gonorrhoeae DNA [Presence] in Unspecified specimen by ANIRUDH with probe detection GONORRHEA/CHLAMYDIA NAAT Lab Routine Screen for STD (sexually transmitted disease) 03/11/2024 8:10 AM EDT [facility] PAP TEST PAP TEST Lab Rou shannon Encounter for screening for malignant neoplasm of cervix 03/11/2024 8:10 AM EDT [facility] Thyroid stimulating hormone measurement [facility] Immunizations Immunization Date Immunization Notes Care Provider Edward llanos 03-10-2021 COVID-Faby (AD26 .5 ML) Anna Marie Sales PA-C Work Phone: [facility] 01-28-2018 Meningococcal, MCV4, unspecified conjugate formulation(groups A, C, Y and W-135) Anna Marie Sales PA-C Work Phone: [facility] 01-28-2018 Counseled parent on risks/benefits of vaccines (29081) Anna Marie Sales PA-C Work Phone: [facility] 01-28-2018 meningococcal polysaccharide (groups A, C, Y and W-135) diphtheria toxoid conjugate vaccine (MCV4P) Anna Marie Sales PA-C Work Phone: [facility]; [facility]. Comment on above: Site: Left DeltoidVI S Given: * Meningococcal Vaccine (10/20/2015) 06-09-2014 influenza, seasonal, injectable Anna Marie Sales PA-C Work Phone: [employer] [facility] Comment on above: Site: Deltoid (Left) VIS Given: * Influenza, Inactivated () 06-09-2014 IMMUNIZATION ADMIN ([id number]) Anna Marie Sales PA-C Work Phone: [employer] [facility] 12-12-2013 influenza, seasonal, injectable Anna Marie Sales PA-C Work Phone: [employer]; [facility]. Comment on above: Site: Deltoid (Left) VIS Given: * Inactivated Influenza Vaccine (03/01/09) * Inactivated Influenza Vaccine (02/13/11) * Influenza vaccine [id number], inactivated (01/21/2012) * Influenza, Inactivated () * VIS Given (Unspecified) 07-02-2013 IMMUNIZATION ADMIN ([id number]) Anna Marie Darlinger PA-C Work Phone: [employer]; [employer] 02-05-2013 varicella virus vaccine Mercedeschristy Darlinger PA-C Work Phone: [employer]; [employer]. Comment on above: Site: Deltoid Area ( Left)VIS Given: * Varicella (Chickenpox) (10/02/07) 01-30-2013 tetanus toxoid, redu marissa diphtheria toxoid, and acellular pertussis vaccine, adsorbed Anna Marie Sales PA-C Work Phone: [employer]; [facility]. Comment on above: Site: Deltoid (Left) VIS Given: * Tetanus/Diphtheria/(Pertussis) (Td/Tdap) (06/08/08) * Tetanus/Diptheria/Pertussis (Tdap/Td) 08/14/11 10-03-2005 diphtheria, tetanus toxoids and acellular pertussis vaccine Anna Marie Sales PA-C Work Phone: [employer]; [employer] 10-03-2005 measles, mumps and rubella virus vaccine Anna Marie Sales PA-C Work Phone: [employer]; [employer] 10-03-2005 poliovirus vaccine, inactivated Anna Marie Sales PA-C Work Phone: [employer]; [employer]. 08-31-2002 diphtheria, tetanus toxoids and acellular pertussis vaccine Anna Marie Sales PA-C Work Phone: [facility] 08-31-2002 varicella virus vaccine Mercedeschristy blankenship Sales PA-C Work Phone: [facility] 03-19-2002 measles, mumps and rubella virus vaccine Anna Marie Sales PA-C Work Phone: [facility] 02-27-2002 hepatitis B vaccine, pediatric or pediatric/adolescent dosage Anna Marie Sales PA-C Work Phone: [facility] 06-18-2001 diphtheria, tetanus toxoids and acellular pertussis vaccine Anna Marie Sales PA-C Work Phone: [facility] 06-18-2001 haemophilus influenz ae type b vaccine, PRP-T conjugate Anna Marie Sales PA-C Work Phone: [facility] 06-18-2001 pneumococcal conjuga te vaccine, 7 valent Anna Marie Sales PA-C Work Phone: [facility] 06-18-2001 poliovirus vaccine, inactivated Anna Marie Sales PA-C Work Phone: [facility] 04-16-2001 diphtheria, tetanus toxoids and acellular pertussis vaccine Anna Marie Sales PA-C Work Phone: [facility] 04-16-2001 haemophilus influenz ae type b vaccine, PRP-T conjugate Anna Marie Sales PA-C Work Phone: [facility] 04-16-2001 pneumococcal conjuga te vaccine, 7 valent Anna Marie Sales PA-C Work Phone: [facility] 04-16-2001 poliovirus vaccine, inactivated Anna Marie Sales PA-C Work Phone: [facility] 02-25-2001 pneumococcal conjuga te vaccine, 7 valent Anna Marie Sales PA-C Work Phone: [facility] 02-21-2001 diphtheria, tetanus toxoids and acellular pertussis vaccine Anna Marie Sales PA-C Work Phone: [facility] 02-21-2001 haemophilus influenz ae type b vaccine, PRP-T conjugate Anna Marie Sales PA-C Work Phone: [facility] 02-21-2001 poliovirus vaccine, inactivated Anna Marie Sales PA-C Work Phone: [facility] 01-21-2001 hepatitis B vaccine, pediatric or pediatric/adolescent dosage Anna Marie Sales PA-C Work Phone: [facility] 2000 hepatitis B vaccine, pediatric or pediatric/adolescent dosage Anna Marie Sales PA-C Work Phone: [facility]. Payers Date Payer Category Payer Unknown [id number] 2024 Self-pay [id number] 2023 Unknown [id number] 2023 Unknown [id number] 2000 Unknown [id number] 2.16.84 [id number] 1961 Unknown [id number] 2.16.84 [id number] Private Health Insurance [id number] Unknown ELSIE [id number] Unknown [id number] 2.16.8 [id number] Unknown [id number] 2.16.8 [id number] Unknown [id number] 2.16.8 [id number] Unknown [id number] 2.16.8 [id number] Unknown [id number] 2.16.8 [id number] Unknown [id number] 2.16.8 [id number] Unknown [id number] 2.16.8 [id number] Social History Date Type Detail Facility Start: 11-05-[address] [facility] Start: 2000 Sex Assigned At Female W [facility] Start: 03-11-2024 End: 03-30-2024 Caffeine Use Caffeine Use [facility]. Tobacco/Smoke Exposure: Tobacco/Smoke Exposure: ; None. [facility] None [facility]. Work Phone: Start: 03-11-2024 End: 11-03-2024 Tobacco smoking status NHIS Never smoked tobacco [facility] Start: 03-11-2024 Tobacco use and exposure Smokeless tobacco non-user [facility] Start: 03-11-2024 End: 03-30-2024 Tobacco use panel [facility] National Score (1-100), lower number is lower risk 83 [facility] Start: 2000 Sex assigned at Not on file C [facility] Clinical Notes 03-11-2024 to 12-21-2024 Note Date & Type Note Facility 12-21-2024 Progress note [facility] 12-21-2024 Progress note Note Date/Time December 21, 2024 3:41pm [facility] [address], [address] [place] [address] OFFICE VISIT Date of Service: 12/21/24 MR#: [id number] Acct: [id number] Name: CHERY MCKEON Rep #: [id number] : 2000 Provider: GISELA Chu Age/Sex: 24/F Location: [facility] Status: Signed Intake Vital Signs 11/05/15 16:09 11/19/24 08:43 12/21/24 15:20 Height 5 ft 5 in 5 ft 5 in 5 ft 5 in Weight: 170 lb 6 oz 165 lb BMI 28.3 27.4 BP 130/86 H 126/86 H Intake Visit Reasons: 12wk ob 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 Is patient in pain?: No Allergies No Known Allergies Allergy (Verified 12/21/24 15:18) Medications ?Medication ?Instructions ?Recorded ?Confirmed ?Type loratadine 10 mg tablet (Allergy 10 mg PO DAILY 12/21/24 History Relief (loratadine)) cholecalciferol (vitamin D3) 10 20 mcg PO QDAY 5 12/21/24 History mcg (400 unit) capsule docosahexaenoic acid 200 mg mg PO 11/03/24 12/21/24 Hi story capsule ( DHA) pyridoxine (vitamin B6) 10 mg 10 mg PO QDAY 11/03/24 0 12/21/24 History tablet levothyroxine 25 mcg tablet 50 mcg PO QDAY 11/19/24 History (Levo-T) ondansetron 4 mg disintegrating 4 mg PO Q6H PRN nausea and 11/19/24 12/21/24 Rx tablet vomiting #90 tabs promethazine 25 mg rectal 25 mg AL Q4-6H PRN nausea an d 12/21/24 12/21/24 Rx suppository vomiting #12 ea Last Menstrual Period: 09/16/24 PFSH PFSH Surgical History [place] teeth removed S/P cholecystectomy Family History Grandfather Prostate cancer Grandmother Colon cancer CVA (cerebral vascular accident) Grandmother Dementia Father Diabetes Myocardial infarction Skin cancer Mother Heart disease Thyroid disorder Social History adopted: No household members: spouse housing: house current occupational status: employed current occupation: [employer] current occupational exposures/hazards: No pets and animals: No history of recent travel: Yes ([place]24, [place] August 2024) out of state: Yes out of country: No sexually active: No Smoking Status: Never smoker alcohol intake: current alcohol intake frequency: holidays/special occasions only details: Not while substance use type: does not use well-balanced diet: daily or most days caffeine: Yes Type: coffee eating out: 1-3 times/week during the past year weight has: increased > 10 lbs what type of physical activity do you participate in: walking frequency: 1-2 times per week duration: 15-30 minutes/day 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 OB Visit JACI Calculator Estimated Delivery Date Method Current WG Current Estimate 07/01/25 Ultrasound #1 12w 4d Other Estimates 06/23/25 LMP (Certain) 13w 5d Expected Delivery Route/Plan Labor Preferences- CB/BF classes: [] labor support person: [] labor intervention preferences: [] pain management options preferred: [] cut cord/dad catch: [] : [] PP control planned: [] discussed possible routes of delivery and associated risks: [] special requests: [] Specific Issue/Plans Covid status: [] Flu vaccine: [] Tdap vaccine: [] Rhogam: [] LARC form signed: [] Problem list reviewed and updated with the most current plan of care details and appropriate orders placed. Relevant counseling for the gestational age provided. Continue routine care and follow up unless otherwise noted in visit notes/problem list details Initial Weight: 170 lb Date -?-?-?-?-?-?-?-?-?-?-?-?- EGA Weight BP Urine Prot -?-?-?-?--?-?-?-?-?-?-?-?- Glucose FHR FuHt Pres Dilation -?-?-?-?-?-?-?-?-?-?--?-?- Effaced St Visit Note 11/19/24 -?-?-?-?-?-?-?-?-?-?-?-?- 8w 0d 170 lb 6 oz (+6 oz) 130/86 -?-?-?-?-?-?-?-?-?-?-?-?- 167 -?-?-?-?-?-?-?-?-?-?-?-?- KW- CRL not cons with dates. JACI changed. declines NIPT. PAP done with [facility] reports normal. 12/21/24 -?-?-?-?-?-?-?-?-?-?-?-?- 12w 4d 165 lb (-5 lb) 126/86 -?-?-?-?-?-?-?-?-?-?-?-?- 158 -?-?-?-?-?-?-?-?-?-?-?-?- KW- CRL cons wi new dates. labs reviewed. no vb/cramping. 5lb weight loss and still having Nausea. IV fluids ordered. anatomy US ordered. ACOG Second Trimester Second Trimester: Signs and Symptoms of Labor, Selecting a care provider, Reproductive Life Planning & Contreception, Care Planning, Depression/Anxiety and Intimate Partner Violence; Discussed Tobacco Cessation Third Trimester Third Trimester: Pain Management Plans, Labor support person(s), Immediate Larc, Signs and Symptoms of Preeclampsia, Infant Feeding, [place] Education and Family Medical Leave or Disability Forms ROS Const Reports system reviewed and no additional complaints, except as documented Eyes Reports system reviewed and no additional complaints, except as documented ENT Reports system reviewed and no additional complaints, except as documented Card Reports system reviewed and no additional complaints, except as documented Resp Reports system reviewed and no additional complaints, except as documented GI Reports system reviewed and no additional complaints, except as documented, Denies nausea and Denies vomiting Reports system reviewed and no additional complaints, except as documented Musc Reports system reviewed and no additional complaints, except as documented Skin/Breast Reports system reviewed and no additional complaints, except as documented Neuro Yes system reviewed and no additional complaints, except as documented Psych Reports system reviewed and no additional complaints, except as documented Endo Reports system reviewed and no additional complaints, except as documented Braden/Lymph Reports system reviewed and no additional complaints, except as documented Aller/Immun Reports system reviewed and no additional complaints, except as documented Exam Const General: cooperative, healthy appearing and no acute distress Orientation: alert, awake and oriented x3 Neck Neck: normal visual inspection and full ROM Resp Effort & Inspection: normal respiratory effort, able to speak in complete sentences and symmetric chest movement GI Inspection: normal to inspection Palpation: soft and other Other: gravid Skin General: no rashes or lesions noted Neuro General: patient alert, patient awake and patient oriented x3 Cognition: normal cognition Speech: speech normal Gait: normal gait Motor: muscle tone normal throughout Extrem General: normal to inspection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
== END 2024-12-23 23:59 | disposition home or self-care (01) ==
LOC: MEDOUTP 11:40
PROVIDERS: PCP Physician Assistant; Referring Provider Advanced Practice Midwife; Visit Provider Advanced Practice Midwife
DX: O21.9 Vomiting of pregnancy, unspecified (principal); O99.280 Endocrine, nutritional and metabolic diseases complicating pregnancy, unspecified trimester; E86.0 Dehydration; Z3A.00 Weeks of gestation of pregnancy not specified
CPT/HCPCS: 96374; 96361; A4216; J2405

== ENCOUNTER 2025-01-06 12:28 | Outpatient (CLI) | payer MEDICAID, SELFPAY ==
[2025-01-06 12:36] VITALS: BP 138/79; PULSE 89; RESP 16; TEMP 36.2; O2SAT 99; BMI 27.9
[2025-01-06] MEDS: Dextrose 5%-Lactated Ringers 1,000 ML 999 ML IV (12:48)
[2025-01-06] MEDS: Ondansetron 4 MG/2 ML Vial IV (13:17)
[2025-01-06 13:56] VITALS: BP 122/67; PULSE 74; RESP 16
== END 2025-01-06 23:59 | disposition home or self-care (01) ==
LOC: MEDOUTP 12:30
PROVIDERS: PCP Physician Assistant; Referring Provider Obstetrics & Gynecology; Visit Provider Obstetrics & Gynecology
DX: E86.0 Dehydration (principal); R11.0 Nausea
CPT/HCPCS: 96374; 96361; A4216; J2405

== ENCOUNTER → 2025-02-18 | Outpatient (CLI) | payer MEDICAID, SELFPAY | END | disposition home or self-care (01) | LOC: BWCLAB 13:29 | PROVIDERS: PCP Physician Assistant; Visit Provider Obstetrics & Gynecology | DX: O09.91 Supervision of high risk pregnancy, unspecified, first trimester (principal); Z3A.00 Weeks of gestation of pregnancy not specified ==

== ENCOUNTER 2025-03-03 17:32 | Outpatient (CLI) | payer MEDICAID, SELFPAY ==
[2025-03-03 18:25] VITALS: BMI 28.8
[2025-03-03 18:29] VITALS: BP 121/80; PULSE 76
[2025-03-03 18:31] VITALS: TEMP 36.5
[2025-03-03 18:32] VITALS: PULSE 83; O2SAT 98
[2025-03-03 18:37] VITALS: PULSE 76; O2SAT 97
[2025-03-03 19:21] VITALS: BP 133/80; PULSE 71; PULSE 72; TEMP 36.4; O2SAT 100
[2025-03-03 19:21] LABS: Color, Urine Yellow (Yellow); Glucose, Dipstick Normal (Normal); Ketone-Dipstick Negative (Negative); Leukocyte Esterase-Dipstick 500 /ul (Negative); Nitrite-Dipstick Negative (Negative); Occult Blood-Urine 250 /ul (Negative); Protein-Dipstick 30 mg/dl (Negative); Specific Gravity, Urine 1.010 (1.002-1.030); Urine Bilirubin Dipstick Negative (Negative)
--- NOTE | 2025-03-03 23:49 | OB.TRI.HP_ITS ---
HPI - General General Date of Admission: 03/03/25 HPI Narrative CHERY MCKEON, is a 24 y/o @ 22 weeks 6 days who presents to L&D with abdominal pain. She denies contractions that come and go, vaginal bleeding, and is feeling the baby move. She denies flank pain or RLQ pain. The pain seems to be suprapubic in nature. A UA was collected and was suggestive of a UTI Maternal Data Information JACI Calculator Estimated Delivery Date Method Current WG Current Estimate 07/01/25 Ultrasound #1 23w 5d Other Estimates 06/23/25 LMP (Certain) 24w 6d PFSH PFSH Home Medications ?Medication ?Instructions ?Recorded ?Last Taken ?Type loratadine 10 mg tablet (Allergy 10 mg PO DAILY 03/02/25 History Relief (loratadine)) cholecalciferol (vitamin D3) 10 20 mcg PO QDAY 5 03/02/25 History mcg (400 unit) capsule docosahexaenoic acid 200 mg 1 mg PO DAILY 11/03/2407/15 History capsule ( DHA) levothyroxine 25 mcg tablet 50 mcg PO QDAY 11/19/24 History (Levo-T) ondansetron 4 mg disintegrating 4 mg PO Q6H PRN nausea and 11/19/24 03/02/25 Rx tablet vomiting #90 tabs famotidine 20 mg tablet (Pepcid) 20 mg PO BID #60 tabs 02/09/25 03/03/25 Rx cephalexin 500 mg capsule 500 mg PO BID #14 caps 03/03 Unknown Rx Allergy/AdvReac Type Severity Reaction Status Date / Time No Known Allergies Allergy Verified 03/03/25 18:40 Family History Grandfather Prostate cancer Grandmother Colon cancer CVA (cerebral vascular accident) Grandmother Dementia Father Diabetes Myocardial infarction Skin cancer Mother Heart disease Thyroid disorder Surgical History [place] teeth removed S/P cholecystectomy Social History adopted: No household members: spouse housing: house current occupational status: employed current occupation: [employer] current occupational exposures/hazards: No pets and animals: No history of recent travel: Yes ([place] 2024, [place] August 2024) out of state: Yes out of country: No sexually active: No Smoking Status: Never smoker alcohol intake: current alcohol intake frequency: holidays/special occasions only details: Not while substance use type: does not use well-balanced diet: daily or most days caffeine: Yes Type: coffee eating out: 1-3 times/week during the past year weight has: increased > 10 lbs what type of physical activity do you participate in: walking frequency: 1-2 times per week duration: 15-30 minutes/day guy/denominational: [employer] seatbelt use: always do you feel safe at home: Yes additional social history: : 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 1 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 Hx Para Spontaneous abortions 0 Hx # Term Pregnancies Ectopic pregnancies Hx # Pregnancies Multiple births # of living children Visit Details Expected Delivery Route/Plan Labor Preferences- CB/BF classes: [] labor support person: [] labor intervention preferences: [] pain management options preferred: [] cut cord/dad catch: [] : [] PP control planned: [] discussed possible routes of delivery and associated risks: [] special requests: [] Plans Covid status: [] Flu vaccine: [] Tdap vaccine: [] Rhogam: [] LARC form signed: [] Problem list reviewed and updated with the most current plan of care details and appropriate orders placed. Relevant counseling for the gestational age provided. Continue routine care and follow up unless otherwise noted in visit notes/problem list details OB Flowsheet Initial Weight: 170 lb Date -?-?-?-?-?-?-?-?-?-?-?-?- EGA Weight BP Urine Prot -?-?-?-?-?-?-?-?-?-?-?-?- Glucose FHR FuHt Pres Dilation -?-?-?-?-?-?-?-?-?-?-?-?- Effaced St Visit Note 11/19/24 -?-?-?-?-?-?-?-?-?-?-?-?- 8w 0d 170 lb 6 oz (+6 oz) 130/86 -?-?-?-?-?-?-?-?-?-?-?-?- 167 -?-?-?-?-?-?-?--?-?-?-?-?- KW- CRL not cons with dates. JACI changed. declines NIPT. PAP done with [facility] reports normal. 12/21/24 -?-?-?-?-?-?-?-?-?-?-?-?- 12w 4d 165 lb (-5 lb) 126/86 Negative -?-?-?-?-?-?-?-?-?-?-?-?- Negative 158 -?-?-?-?-?-?-?-?-?-?-?-?- KW- CRL cons wi th new dates. labs reviewed. no vb/cramping. 5lb weight loss and still having Nausea. IV fluids ordered. anatomy US ordered. 01/15/25 -?-?-?-?-?-?-?-?-?-?-?-?- 16w 1d 171 lb 2 oz (+1 lb 2 oz) 124/85 Negative -?-?-?-?-?-?-?-?-?-?-?-?- Negative 146 -?-?-?-?-?-?-?-?-?-?-?-?- JV- no spotting but does have some cramping and rib pains. she was vomiting 9 times a day and is now finally feeling better. JV- no spotting but does hav e some cramping and rib pains. she was vomiting 9 times a day and is now finally feeling better. Check TSH next visit. 02/09/25 -?-?-?-?-?-?-?-?-?-?-?-?- 19w 5d 173 lb 2 oz (+3 lb 2 oz) 129/83 Negative -?-?-?-?-?-?-?-?-?-?-?-?- Negative 145 -?-?-?-?-?-?-?-?-?-?-?-?- SM- no vb lof go od fm discussed US findings ROS Constitutional Constitutional: Reports systems reviewed and no addt'l complaints, except as documented Gastrointestinal Gastrointestinal: Denies bloating, constipation, cramping, diarrhea, nausea or vomiting Genitourinary Genitourinary: Reports other Details: Denies vaginal odor, vaginal bleeding, or vaginal discharge ; Denies difficulty urinating or flank pain NST FHR Rate Baby A Baseline: 140 Variability:: Minimal and Moderate Accelerations:: 10 x 10 NST Reactive:: Appropriate for gestational age Uterine Activity:: no contractions Assessment & Plan (1) UTI in : (2) Absent nasal bridge: COMMENT: possible absent nasal bone on US- fu scan scheduled and offered NIPT (3) Nausea and vomiting during : COMMENT: phenergan, pepcid (4) Supervision of high-risk : QUALIFIERS: Trimester: first trimester Qualified Code(s): O09.91 - Supervision of high risk , unspecified, first trimester COMMENT: PRR, G1, JACI 07/01/25, girl : Desmond (5) : QUALIFIERS: Weeks of gestation: 19 weeks Qualified Code(s): Z3A.19 - 19 weeks gestation of COMMENT: elects NIPT, low risk/declined carrier testing. 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 culture to follow tyleol for discomfort
== END 2025-03-03 20:10 | disposition home or self-care (01) ==
LOC: WPOUT 17:41 → WP 17:42
PROVIDERS: PCP Physician Assistant; Referring Provider Obstetrics & Gynecology; Visit Provider Obstetrics & Gynecology
DX: O23.42 Unspecified infection of urinary tract in pregnancy, second trimester (principal); O99.282 Endocrine, nutritional and metabolic diseases complicating pregnancy, second trimester; E06.3 Autoimmune thyroiditis; Z3A.22 22 weeks gestation of pregnancy; Z79.890 Hormone replacement therapy
CPT/HCPCS: 59025; 59050; 81002; 87086; 87088; 99221; G0378

== ENCOUNTER → 2025-03-11 | Outpatient (CLI) | payer MEDICAID, SELFPAY ==
[2025-03-11 17:00] LABS: Hematocrit 33.1 % (37-47); Hemoglobin 11.6 g/dL (12.0-15.0); Immature Granulocytes Count 0.100 X10^3/uL (0.0-0.0); Mean Corp Hgb Conc 35.0 g/dL (32-36); Mean Corpuscular Volume 89.9 fL (81-99); Mean Platelet Vol. 9.3 fl (6.2-12.0); NRBC Flagged by Analyzer 0 % (0-5); Platelet Count 298 K/mm3 (150-450); RBC Distribution Width CV 13.2 % (11.6-14.6); RBC Distribution Width SD 43.5 fl (35.1-43.9); Red Blood Count 3.68 M/mm3 (4.2-5.4); White Blood Count 12.2 K/mm3 (4.4-11.0)
[2025-03-11 17:22] LABS: AST(SGOT) 14 U/L (<=31); Alanine Aminotransfer ALT/SGPT 9 U/L (<=34); Albumin, Serum 3.8 g/dL (3.5-5.0); Alkaline Phosphatase 65 U/L (35-104); Anion Gap 13 (5-15); BUN 5 mg/dL (4-19); BUN/Creat Ratio 11.9 RATIO (10-20); Calcium,Total 9.2 mg/dL (7.6-11.0); Carbon Dioxide 20.7 mmol/L (21.0-32.0); Chloride 105 mmol/L (98-108); Globulin 2.4 g/dL (2.2-4.2); Glucose 103 mg/dL (70-99); Potassium 4.5 mmol/L (3.3-5.1)
== END | disposition home or self-care (01) ==
LOC: BWCLAB 15:33
PROVIDERS: PCP Physician Assistant; Referring Provider Advanced Practice Midwife; Visit Provider Advanced Practice Midwife
DX: O09.91 Supervision of high risk pregnancy, unspecified, first trimester (principal); O99.281 Endocrine, nutritional and metabolic diseases complicating pregnancy, first trimester; E06.3 Autoimmune thyroiditis; Z3A.00 Weeks of gestation of pregnancy not specified
CPT/HCPCS: 36415; 80053; 84443; 85025

== ENCOUNTER → 2025-03-31 | Outpatient (CLI) | payer MEDICAID, SELFPAY | END | disposition home or self-care (01) | LOC: LABSPEC 10:04 | PROVIDERS: PCP Physician Assistant; Referring Provider Nurse Practitioner Women's Health; Visit Provider Nurse Practitioner Women's Health | DX: R39.15 Urgency of urination (principal) | CPT/HCPCS: 87077; 87086; 87088; 87186 ==

== ENCOUNTER → 2025-04-07 | Outpatient (CLI) | payer MEDICAID, SELFPAY ==
[2025-04-07 13:47] LABS: Hematocrit 32.8 % (37-47); Hemoglobin 11.6 g/dL (12.0-15.0); Immature Granulocytes Count 0.070 X10^3/uL (0.0-0.0); Mean Corp Hgb Conc 35.4 g/dL (32-36); Mean Corpuscular Volume 88.6 fL (81-99); Mean Platelet Vol. 9.1 fl (6.2-12.0); NRBC Flagged by Analyzer 0 % (0-5); Platelet Count 299 K/mm3 (150-450); RBC Distribution Width CV 12.6 % (11.6-14.6); RBC Distribution Width SD 40.8 fl (35.1-43.9); Red Blood Count 3.70 M/mm3 (4.2-5.4); White Blood Count 11.3 K/mm3 (4.4-11.0)
[2025-04-07 14:45] LABS: Glucose Challenge Gest 1H 50g 158 mg/dL (70-140); HIV Nonreactive (Nonreactive); Syphilis Antibodies Nonreactive (Nonreactive)
--- OUTSIDE RECORDS SUMMARY | 2025-04-07 20:05 | XMS RPT_ITS | CCD ---
Author Organization [facility] Care Team Providers Care [place] [employer] Attendant Name Role Phone ÁNGELA FERMIN Unavailable Unavailable JENY, ÁNGELA Unavailable Unavailable ÁNGELA FERMIN Unavailable Unavailable ANNA MARIE SALES Admitting Unavailable ANNA MARIE SALES Attending Unavailable ANNA MARIE SALES Primary Care Unavailable ÁNGELA FERMIN Consulting Unavailable PROVIDER, UNKNOWN Consulting Unavailable NATALIA LIANG Admitting Unavailable NATALIA LIANG Attending Unavailable NATALIA LIANG Primary Care Unavailable ÁNGELA FERMIN Consulting Unavailable PROVIDER, UNKNOWN Consulting Unavailable Anna Marie Sales PA-C Unavailable [phone] Anna Marie Sales PA-C Unavailable Dr. Oj Ordonez MD Unavailable Dermatology Provider Unavailable Unavailable Dr. Natalia Liang MD. Unavailable ENT Provider Unavailable Unavailable Ady SMITH, Dr. Pablo Nielsen Unavailable Lloyd Pulido MD Unavailable Elisa REINOSO, Kristin Unavailable Farshad Bustamante MD Unavailable Maya Maxwell MA Unavailable Unavailable Gogoi (scribe), Hemanta Unavailable Unavaila ble Espinoza ICT MANAGERS, Irene Unavailable Unavailable Jeny MARTINEZ, Ángela D Unavailable Frederic Villanueva PA-C Unavailable [phone] Sandra Gauthier LPN Unavailable Unavailable Mandi Maldonado RN Unavailable Marine LUNA, Conchita Bazzi Unavailable Unavailable Lacy ICT MANAGERS, Lloyd Ramirez Unavailable Unavailab Sandra Dewey MA Unavailable Unavailable Vess ICT MANAGERS, Jaziel Dawn Unavailable Unavailable Wengerd ICT MANAGERS, Rita Unavailable Unavailabl e Unavailable Unavailable Unavailable Unavailable Unavailable Primary Care Provider Unavailabl ELIJAH Patrick Attending Unavailable ELIJAH LYMAN Referring Unavailable ELIJAH LYMAN Attending Unavailable Madina Jules LPN Unavailable Unavailabl e Sales PA, Anna Marie Primary Care Provider Sales PA, Anna Marie Referring Provider Priscila GASOLINE CATALYST OPERATOR-CMechelle Attending Provider Kehinde Anand CNM Attending Provider Kehinde Anand CNM Referring Provider Malik SMITH, Dr. Carvalho Attending Provider Malik SMITH, Dr. Carvalho Referring Provider Dr. Rita Rivas DO Attending Provider JULIANNA ANSARI Attending Unavailable KEHINDE ANAND Referring Unavailable SALES, ANNA MARIE J Primary Care Unavailable BISHNU MORENO Attending Unavailable KEHINDE ANAND Referring Unavailable SALES, ANNA MARIE J Primary Care Unavailable Dr. Rita Rivas DO Referring Provider Sales PA, Anna Marie Primary Care Provider Sales PA, Anna Marie Referring Provider Dr. Rita Rivas DO Other Provider Sales PA, Anna Marie Primary Care Provider Sales PA, Anna Marie Referring Provider Kehinde Anand CNM Attending Provider [phone] Kehinde Anand CNM Referring Provider Priscila GASOLINE CATALYST OPERATOR-CMechelle Attending Provider Rita Rivas Consulting Unavailabl e Rita Rivas Referring Unavailabl e Rita Rivas Attending Unavailabl e Sales PA, Anna Marie Primary Care Unavailable Sales PA, Anna Marie Primary Care Unavailable Priscila GASOLINE CATALYST OPERATORMechelle Attending Unavailable Sales PA, Anna Marie Referring Unavailable Sales PA, Anna Marie Primary Care Unavailable Kehinde Anand Attending Unavailable Saels PA, Anna Marie Referring Unavailable Sales PA, Anna Marie Referring Unavailable Sales PA, Anna Marie Primary Care Unavailable Kehinde Anand Attending Unavailable Brilliant GASOLINE CATALYST OPERATORMechelle Attending Unavailable Sales PA, Anna Marie Primary Care Unavailable Sales PA, Anna Marie Referring Unavailable Sales PA, Anna Marie Primary Care Unavailable Sales PA, Anna Marie Referring Unavailable Brilliant GASOLINE CATALYST OPERATOR, Mechelle Attending Unavailable Sales PA, Anna Marie Referring Unavailable Sales PA, Anna Marie Primary Care Unavailable Maia Gan Attending Unavailable Sales PA, Anna Marie Referring Unavailable Vande VelRita rojo Attending Unavailabl e Sales PA, Anna Marie Primary Care Unavailable Sales PA, Anna Marie Referring Unavailable Sales PA, Anna Marie Primary Care Unavailable Kehinde Anand Attending Unavailable Sales PA, Anna Marie Primary Care Unavailable Kehinde Anand Referring Unavailable Kehinde Anand Attending Unavailable Sales PA, Anna Marie Primary Care Unavailable Maia Gan Referring Unavailable Maia Gan Attending Unavailable Sales PA, Anna Marie Primary Care Unavailable Kehinde Anand Referring Unavailable Kehinde Anand Attending Unavailable Sales PA, Anna Marie Primary Care Unavailable Kehinde Anand Attending Unavailable Kehinde Anand Referring Unavailable Sales PA, Anna Marie Primary Care Unavailable Maia Gan Attending Unavailable Vande Velde, Rita Referring Unavailabl e Vande Velde, Rita Attending Unavailabl e Sales PA, Anna Marie Primary Care Unavailable Rita Rivas Admitting Unavailabl e Vande Velde, Rita Referring Unavailabl e Vande VeldeRita Attending Unavailabl e Sales PA, Anna Marie Primary Care Unavailable Priscila GASOLINE CATALYST OPERATORMechelle Attending Unavailable Sales PA, Anna Marie Primary Care Unavailable Brilliant GASOLINE CATALYST OPERATORMechelle Referring Unavailable Sales PA, Anna Marie Primary Care Unavailable Kehinde Anand Referring Unavailable Kehinde Anand Attending Unavailable Sales PA, Anna Marie Primary Care Physician Kehinde Anand CNM Attending Physician [phone] Dr. Maia Gan MD Attending Physician Dr. Rita Rivas DO Attending Physician Dr. Rita Rivas DO Nurse Practitioner Priscila GASOLINE CATALYST OPERATOR-CMechelle Attending Physician [phone] Priscila GASOLINE CATALYST OPERATOR-C, Mechelle Referring Provider Medications Current Medications Medication Drug Class(es) Dates Sig (Normalized) Sig (Original) apremilast 30 mg oral tablet (17 sources) Otezla 30 mg tablet ; 1 daily (30 mg) cephalexin 500 mg oral capsule (12 sources) Cephalosporin Antibacterial Start: 04-07-2025 take 1 capsule by mouth once daily Cephalexin 500 mg capsule Active 500 mg PO DAILY 30 April 07, 2025 12:00am Complies with drug therapy Start: 03-03-2025 End: 03-11-2025 take 1 capsule by mouth twice daily Cephalexin 500 mg capsule Discontinued 500 mg PO TWICE A DAY 14 0 March 03, 2025 12:00am March 11, 2025 3:17pm Start: 12-16-2024 End: 12-23-2024 cephALEXin 500 mg capsule ; 1 (one) capsule TID for 7 days Quantity: 21 {Capsule} Refills: 0 Ordered: 16-Dec-2024 JUAN Sales Start: 16-Dec-2024 End: 23-Dec-2024 Status: Inactive Comments: Pt is 11 weeks Comment on above: Pt is 11 weeks pregn ant cetirizine hydrochloride 10 mg oral tablet (20 sources) Histamine-1 Receptor Antagonist take 1 tablet by mouth once daily ZyrTEC Allergy 10 MG Oral Tablet ; 1 daily (10 MG) cholecalciferol 0.01 mg oral capsule (20 sources) Vitamin D Start: 11-04-19 take 1 capsule by mouth once daily Cholecalciferol (Vitamin D3) 10 mcg (400 unit) capsule Active 20 ug PO daily November 03, 2024 12:00am Complies with drug therapy Vitamin D3 25 mc g (1,000 unit) capsule ; 1 daily (25 mcg (1,000 uni) docosahexaenoic acid 200 mg oral capsule (12 sources) Start: 11-03-2024 take 1 mg by mouth once daily Docosahexaenoic Acid ( Dha) 200 mg capsule Active 1 mg PO DAILY November 03, 2024 12:00am Complies with drug therapy famotidine 20 mg oral tablet (11 sources) Histamine-2 Receptor Antagonist Start: 02-09-2025 End: 03-11-2025 take 1 tablet by mouth twice daily Famotidine (Pepcid) 20 mg tablet Active 20 mg PO TWICE A DAY 60 6 March 11, 2025 3:29pm Complies with drug therapy levothyroxine sodium 0.025 mg oral tablet (20 sources) l-Thyroxine Start: 11-19-2024 Levothyroxine (Levo-T) 25 mcg tablet Active 50 ug PO daily November 19, 2024 8:56am Complies with drug therapy Start: 11-03-2024 End: 11-19-2024 Levothyroxine (Levo-T) 25 [...] 10 mg oral tablet (20 sources) Start: 04-16-20 16 take 1 tablet by mouth once daily Loratadine (Claritin) 10 MG tablet Active 10 mg PO DAILY November 05, 2015 12:00am Complies with drug therapy ruxolitinib (17 sources) ruxolitinib 1.5 % topical cream ; (1.5 %) triamcinolone acetonide 0.90828 mg/mg topical ointment (20 sources) Corticosteroid Start: 03-30-20 End: 04-29-20 triamcinolone (KENALOG) 0.025 % ointment Indications: Dyspareunia [...] Hawthorne Start: 13-Nov-2013 End: 09-Feb-2015 Status: Inactive Completed/Discontinued Medications Medication Drug Class(es) Dates Sig (Normalized) Sig (Original) [id number] 200 actuat albuterol 0.09 mg/actuat metered dose [...] Quantity: 200 {Milliliter} Refills: 0 Ordered: 26-Jun-2011 Viv ARLETH Jaziel Dawn Start: 30-May-2011 End: 26-Jun-2011 Status: Inactive Comment on above: Take with food ampicillin 500 mg oral capsule (1 source) Penicillin-class Antibacterial Start: 03-31-20 End: 04-05-20 take 1 capsule by mouth every eight hours Ampicillin 500 mg capsule Discontinued 500 mg PO Q8H 15 5 0 March 31, 2025 12:00am April 04, 2025 12:00am April 05, 2025 12:07am azithromycin 500 mg oral tablet (20 sources) Macrolide Antimicrobial Start: 04-22-20 18 End: 04-25-20 18 take 1 tablet by mouth once daily [...] Jules Start: 05-Aug-2020 End: 12-Jun-2024 Status: Inactive ondansetron 4 mg disintegrating oral tablet (12 sources) Serotonin-3 Receptor Antagonist Start: 11-19-2024 End: 03-11-2025 take 1 tablet by mouth every six hours as needed for nausea and vomiting Ondansetron 4 mg tablet,disintegra ting Discontinued 4 mg PO EVERY 6 HOURS as needed for nausea and vomiting November 19, 2024 12:00am March 11, 2025 3:17pm Nausea and vomiting during Vomiting of , unspecified predniSONE 10 mg oral tablet (20 sources) Start: 04-22-2018 End: 04-27-2018 take 1 tablet by mouth twice daily PredniSONE 10 MG Oral Tablet ; 1 (one) Tablet two times daily for 5 days Quantity: 10 {Tablet} Refills: 0 Ordered: 22-Apr-2018 Start: 22-Apr-2018 End: 27-Apr-2018 Status: Inactive promethazine hydrochloride 25 mg rectal suppository (20 sources) Phenothiazine Start: 12-11-2024 End: 03-03-2025 Promethazine 25 mg suppository Discontinued 25 mg RC EVERY 4-6 HOURS as needed for nausea and vomiting 12 February 09, 2025 11:34am March 03, 2025 6:40pm Promethazine 25 mg suppository (11 sources) Start: 12-11-2024 End: 12-21-2024 Promethazine 25 mg suppository Discontinued 25 mg RC EVERY 4-6 HOURS as needed for nausea and vomiting December 11, 2024 12:00am December 21, 2024 3:27pm Start: 12-11-2024 End: 12-21-2024 Promethazine 25 mg supposito ry Discontinued 25 mg RC EVERY 4-6 HOURS [...] Sales Start: 08-Jun-2019 End: 11-Jun-2019 Status: Inactive vitamin b6 10 mg oral tablet (12 sources) Start: 11-03-2024 End: 03-03-2025 take 1 tablet by mouth once daily Pyridoxine (Vitamin B6) 10 mg tablet Discontinued 10 mg PO daily November 03, 2024 12:00am March 03, 2025 6:41pm Problems Active Problems Problem Classification Problem Date Documented Da te Episodic/Chronic Abdominal pain (20 sources) Acute abdominal pain; Translations: [Unspecified abdominal pain] Onset: 03-31-2025 08-18-2019 Episodic Acute bronchitis (20 sources) Acute bronchitis; Translations: [Acute bronchitis, unspecified] 11-13-2013 Episodic Administrative/social admission (20 sources) Issue of repeat prescriptions 04-25-2016 Episodic Allergic reactions (20 sources) Contact dermatitis; Translations: [Unspecified contact dermatitis, unspecified cause] Onset: 03-31-2025 11-13-2013 Episodic Comment on above: opzelura cream for b reak outs Asthma (20 sources) Allergic asthma; Translations: [Unspecified asthma, uncomplicated] 11-13-2013 Chronic Chronic obstructive pulmonary disease and bronchiectasis (20 sources) Bronchitis; Translations: [Bronchitis, not specified as acute or chronic] 11-13-2013 Episodic Disorders of teeth and jaw (12 sources) Loss of teeth due to extraction; Translations: [Partial loss of teeth, unspecified cause, unspecified class] 11-03-2024 Episodic Comment on above: 2022 Fluid and electrolyte disorders (1 source) Dehydration; Translations: [Dehydration] Onset: 01-11-2025 Episodic Genitourinary symptoms and ill-defined conditions (20 sources) Urinary symptoms ; Translations: [Unspecified symptoms and signs involving the genitourinary system] Onset: 03-31-2025 08-18-2019 Episodic Headache; including migraine (20 sources) [...] malignant neoplasm] 11-13-2013 Episodic Other complications of (20 sources) High risk ; Translations: [Supervision of high risk , unspecified, unspecified trimester] 12-21-2024 Episodic Comment on above: PRR, G1, JACI 5, : Desmond PRR, G1, JACI 5, girl : Desmond Other complications of (20 sources) Vomiting of , unspecified; Translations: [Nausea and vomiting during ] Onset: 03-31-2025 12-21-2024 Episodic Comment on above: phenergan, pepcid Other complications of (15 sources) Urinary tract infection in ; Translations: [Unspecified infection of urinary tract in , unspecified trimester] 03-11-2025 Episodic Comment on above: at 23 weeks. recultu re in 4 weeks at 23 weeks. recultu re in 4 weeks 2nd UTI: culture pending & if + needs daily antibiotic until delivery Other complications of (2 sources) Unspecified infection of urinary tract in , unspecified trimester; Translations: [Unspecified infection of urinary tract in , unspecified trimester] Onset: 03-11-2025 Episodic Other complications of (2 sources) Supervision of high risk , unspecified, first trimester; Translations: [Supervision of high risk , unspecified, first trimester] Onset: 03-31-2025 Episodic Other complications of (1 source) Endocrine, nutritional and metabolic diseases complicating , unspecified trimester; Translations: [Endocrine, nutritional and metabolic diseases complicating , unspecified trimester] Onset: 01-21-2025 Episodic 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 sources) Congenital anomaly of nose; 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 anatomy reviewed elects NIPT, low ris k/declined carrier testing. anatomy reviewed Other screening for suspected conditions (not mental disorders or infectious disease) (20 sources) Raised TSH level; Translations: [Other specified abnormal findings of blood chemistry] 11-30-2022 Episodic Other skin disorders (20 sources) Folliculitis; [...] 08-18-2019 Episodic Residual codes; unclassified (1 source) 24 weeks gestation of ; Translations: [24 weeks gestation of ] Onset: 03-11-2025 Episodic Residual codes; unclassified (2 sources) 19 weeks gestation of ; Translations: [19 weeks gestation of ] Onset: 03-31-2025 Episodic Screening and history of mental health and substance abuse codes (20 sources) Patient encounter status; Translations: [Encounter for screening for depression] 12-08-2021 Episodic Skin and subcutaneous tissue infections (12 sources) Abscess; Translations: [Cutaneous abscess, unspecified] 12-16-2024 [...] Other Problems Problem Classification Problem Date Documented Date Episodic/Chronic Otitis media and related conditions (20 sources) Otitis media and related conditions 05-07-2012 Residual codes; unclassified (1 source) 12 weeks gestation of ; Translations: [12 weeks gestation of ] Onset: 12-21-2024 Episodic Residual codes; unclassified (1 source) 9 weeks gestation of ; Translations: [9 weeks gestation of ] Onset: 12-22-2024 Episodic Unclassified (20 sources) Well adult female - [...] nothing done.Takes daily allergy medication. 10-30-2018 Unclassified (20 sources) Cold Symptoms - Symptoms include runny [...] only slept x 2 hours. 06-22-2018 Unclassified (20 sources) [ADDITIONAL REASON] Menstrual problems - The [...] was treated with Cefdinir last week by [facility] but does not seem to be getting [...] Note for Upper respiratory infection: Pt. saw [facility] 10/04/16 and was diagnosed with r.o.m.and treated [...] and cefdinir (diagnosed with bronchitis 04/04/16 per [facility])) and pt is continuing to use ventolin [...] avoiding exposure to passive smoke. 03-21-2016 Unclassified (20 sources) Follow up consultation - The patient is here to follow-up after Emergency Room/Urgent Care (Patient was seen on 11/05/2015 at [facility] with Dr. Dick for a concussion with [...] ago while playing soccer. ). 11-07-2015 Unclassified (20 sources) [ADDITIONAL REASON] Transition into care - [...] last year. Currently in 4th grade at [employer]. 09-07-2010 Unclassified (20 sources) Cough - Mom [...] back again mom wanted checked. 07-07-2010 Unclassified (11 sources) Menstrual problems - The menstrual problems [...] with college visits - ACT/college. 06-22-2018 Unclassified (11 sources) [ADDITIONAL REASON] Cold Symptoms - Symptoms [...] only slept x 2 hours. 06-22-2018 Unclassified (10 sources) Transition into care - The patient is transitioning into care from an emergency room and a summary of care was reviewed . 11-07-2015 Unclassified (10 sources) [ADDITIONAL REASON] Follow up consultation - The patient is here to follow-up after Emergency Room/Urgent Care (Patient was seen on 11/05/2015 at [facility] with Dr. Dick for a concussion with [...] female: Declines flu vaccine today. 06-12-2024 Unclassified (16 sources) Well adult female - The patient feels well with minor complaints (recent ear infection, fatigue, weight rboert, hot flashes). The first day of the [...] from that time to when she saw [facility] in [place] it was higher. Hot flashes are more in the evenings - cheeks are bright red and warm and then rest of body can do that.Saw [facility] for pain with intercourse - some improvement [...] OCP is controlling periods well. 06-12-2024 Unclassified (6 sources) Skin ulcer/open sore - Symptoms include [...] Name Value Interpretation Reference Range Facil ity Urine Cultureon 04-03-2025 [facility] Urine Culture Staphylococcus epidermidis [place] Count 80,000-100,000 Mixed Gram Positive Organisms Mixed Gram Positive Organisms MIXC Mixed contaminants. Submit a new specimen if indicated. Staphylococcus epidermidis: REACTION cefOXitin Susc Islt Doxycycline Islt TAYLOR 4 S Clindamycin.induce d Susc Islt Gentamicin Islt TAYLOR <=0.5 S Linezolid Islt TAYLOR 1 S Nitrofurantoin Islt TAYLOR <=16 S Oxacillin Susc Islt >=4 R Tetracycline Islt TAYLOR >=16 R TMP SMX Islt TAYLOR <=10 S Vancomycin Islt TAYLOR 1 S Normal [facility] Comment on above: Performed By: #### L 900.0098 #### [facility] [address] [place], [address] Laboratory - Chemistry and C hemistry - challengeOrdered By: Mechelle Francois on 03-31-2025 Bilirubin Ql (U) Negative [facility] Glucose Ql (U) Negative [facility] Ketones Ql (U) Negative [facility] pH (U) 5.0 [pH] [facility] Specific gravity (U) [Rel density] 1.025 [facility] Urobilinogen (U) [Mass/Vol] 0.8790209 mg/dL [facility] - Hematology and Cell countsOrdered By: Mechelle Francois on 03-31-2025 Hemoglobin Ql (U) Moderate [facility] - Specimen inform ationOrdered By: Mechelle Francois on 03-31-2025 Clarity (U) Cloudy [facility] Color (U) Yellow [facility] - UrinalysisOrder ed By: Mechelle Francois on 03-31-2025 Nitrite Ql (U) Negative [facility] Protein Ql (U) Trace [facility] No Panel InformationOrdered By: Mechelle Francois on 03-31-2025 Urine Leukocytes Positive [facility] Urine Non-Hemolyzed Blood Trace [facility] Sfdc Consultant Office Visit Reporton 03-31-2025 Sfdc Consultant Office Visit Report [facility] [address], [address] [place] [address] OFFICE VISIT Date of Service: 03/31/25 MR#: [id number] Acct: [id number] Name: LINDACHERY JIMENEZ Rep #: [id number] : 2000 Provider: CHANG church Age/Sex: 24/F Location: [facility] [place] Status: Signed Intake Vital Signs 03/11/25 15:18 03/30/25 15:50 03/31/25 09:01 03/31/25 09:03 Height 5 ft 5 in 5 ft 5 in 5 ft 5 in 5 ft 5 in Weight: 179 lb 5 oz BMI 29.8 Intake Visit Reasons: Nurse Visit for Urgency Tentmaker Required: No Is patient in pain?: No Allergies No Known Allergies Allergy (Verified 03/31/25 09:02) Medications ???Medication ???Instructions ???Recorded ???Confirmed ???Type loratadine 10 mg tablet (Allergy 10 mg PO DAILY 11/05/15 03/31/25 H istory Relief (loratadine)) cholecalciferol (vitamin D3) 10 20 mcg PO QDAY 11/03/24 03/31/25 H istory mcg (400 unit) capsule docosahexaenoic acid 200 mg 1 mg PO DAILY 11/03/24 03/31/25 Hi story capsule ( DHA) levothyroxine 25 mcg tablet 50 mcg PO QDAY 11/19/24 03/31/25 H istory (Levo-T) famotidine 20 mg tablet (Pepcid) 20 mg PO BID #60 tabs 03/11/2505/15 Rx ampicillin 500 mg capsule 500 mg PO Q8H 5 days #15 caps 03/22 Rx Last Menstrual Period: 09/16/24 Zika: Zika virus screening: Negative : No Nurse's Note: Patient came into office today complaining of abdominal pain and bladder spasms after urinating. She states these symptoms are similar to last time when she had a UTI. Her UA did show moderate blood and trace of leuk. Will send for culture. Spoke with and will treat patient. Patient states this will be second UTI. I spoke with to see if patient needs to be on continuous antibiotic until delivery and she states we will wait to see what culture shows first. Please send antibiotic to [facility] in [place]. 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 OB Visit JACI Calculator Estimated Delivery Date Method Current WG Current Estimate 07/01/25 Ultrasound #1 26w 6d Other Estimates 06/23/25 LMP (Certain) 28w 0d Expected Delivery Route/Plan Labor Preferences- CB/BF classes: [...] -???-???-???-???-? ??-???-???-???-??? -???-???-???- Effaced St Visit Note (more content not included)... Normal [facility] Urine cultureOrdered By: Dada Francois on 03-31-2025 Bacteria identified Cx Nom (U) Staphylococcus epidermidis Abnormal [facility] Bacteria identified Cx Nom (U) Positive Abnormal [facility] Absolute lymphocyte countOrd ered By: Kehinde Anand on 03-11-2025 Lymphocytes Auto (Unsp spec) [#/Vol] 1.33 10*3/uL 0.83-4.51 [facility] Absolute neutrophil countOrd ered By: Kehinde Anand on 03-11-2025 Neutrophils (Bld) [#/Vol] 9.7 10*3/uL High 2.0-7.7 [facility] Anion gap in Serum or Plasma Ordered By: Kehinde Anand on 03-11-2025 Anion gap [Moles/Vol] 13 mmol/L 5-15 [facility] Automated blood erythrocyte countOrdered By: Kehinde Anand on 03-11-2025 RBC (Bld) [#/Vol] 3.68 10*6/uL Low 4.2-5.4 [facility] Comment on above: Performed By: #### L 400.2010 #### [facility] [address] [place], [place], [id number] Automated blood hematocrit ( percentage)Ordered By: Kehinde Anand on 03-11-2025 Hematocrit (Bld) [Volume fraction] 33.1 % Low 37-47 [facility] Comment on above: Performed By: #### L 400.2010 #### [facility] [address] [place], [place], [id number] Automated lymphocyte count a s percentage of total leukocytesOrdered By: Kehinde Anand on 03-11-2025 Lymphocytes/100 WBC Auto (Unsp spec) 10.9 % Low [facility] BUN/creatinine ratioOrdered By: Kehinde Anand on 03-11-2025 Urea nitrogen/Creatinine [Mass ratio] 11.9 mg/mg 10-20 [facility] Basophil percentageOrdered B y: Kehinde Anand on 03-11-2025 Basophils/100 WBC (Bld) 0.2 % 0-1 [facility] Comment on above: Performed By: #### L 400.2010 #### [facility] [address] [place], [address] Bilirubin, totalOrdered By: Kehinde Anand on 03-11-2025 Bilirubin [Mass/Vol] 0.20 mg/dL 0.00-1.30 [facility] CBC W/Diff, Automatedon 02-20 Absolute Lymph 1.33 X10 3/uL Normal 0.83-4.51 [facility] Comment on above: Performed By: #### L 400.2010 #### [facility] [address] [place], [address] Absolute Neut 9.7 X10 3/uL High 2.0-7.7 [facility] Comment on above: Performed By: #### L 400.2010 #### [facility] [address] [place], [address] IG% 0.800 Normal 0.0-0.9 [facility] Comment on above: Result Comment: IG% - Immature Granulocytes (promyelocytes, myelocytes and metamyelocytes) > 1% indicates that a LEFT SHIFT is Present. Performed By: #### L 400.2010 #### [facility] [address] [place], [address] Lymphocytes/100 WBC (Bld) 10.9 % Low - [facility] Comment on above: Performed By: #### L 400.2010 #### [facility] [address] [place], [address] Nucleated RBC (Bld) [#/Vol] 0 10*3/uL Normal 0-5 [facility] Comment on above: Performed By: #### L 400.2010 #### [facility] [address] [place], [address] RDW SD 43.5 fl Normal 35.1-43.9 [facility] Comment on above: Performed By: #### L 400.2010 #### [facility] [address] [place], [address] Carbon dioxide, total [Moles /volume] in Central venous bloodOrdered By: Kehinde Anand on 03-11-2025 CO2 [Moles/Vol] 20.7 mmol/L Low 21.0-32.0 [facility] Chloride assayOrdered By: Jose Luis Anand on 03-11-2025 Chloride [Moles/Vol] 105 mmol/L 98-108 [facility] Comprehensive Metabolic Prof ilon 03-11-2025 Albumin [Mass/Vol] 3.8 g/dL Normal 3.5-5.0 [facility] Comment on above: Performed By: #### L 400.2010 #### [facility] [address] [place], [address] Albumin/Globulin [Mass ratio] 1.6 {ratio} Normal 0.9-2.4 [facility] Comment on above: Performed By: #### L 400.2010 #### [facility] [address] [place], [address] ALK PHOS 65 U/L Normal 35-104 [facility] Comment on above: Performed By: #### L 400.2010 #### [facility] [address] [place], [address] ALT [Catalytic activity/Vol] 9 U/L Normal <=34 [facility] Comment on above: Performed By: #### L 400.2010 #### [facility] [address] [place], [address] AST [Catalytic activity/Vol] 14 U/L Normal <=31 [facility] Comment on above: Performed By: #### L 400.2010 #### [facility] [address] [place], [address] Bilirubin [Mass/Vol] 0.20 mg/dL Normal 0.00-1.30 [facility] Comment on above: Performed By: #### L 400.2010 #### [facility] [address] [place], [address] BUN/CRE 11.9 RATIO Normal 10-20 [facility] Comment on above: Performed By: #### L 400.2010 #### [facility] [address] [place], [address] Calcium [Mass/Vol] 9.2 mg/dL Normal 7.6-11.0 [facility] Comment on above: Performed By: #### L 400.2010 #### [facility] [address] [place], [address] Chloride [Moles/Vol] 105 mmol/L Normal 98-108 [facility] Comment on above: Performed By: #### L 400.2010 #### [facility] [address] [place], [address] CO2 [Moles/Vol] 20.7 mmol/L Low 21.0-32.0 [facility] Comment on above: Performed By: #### L 400.2010 #### [facility] [address] [place], [address] Creatinine [Mass/Vol] 0.45 mg/dL Low 0.70-1.20 [facility] Comment on above: Performed By: #### L 400.2010 #### [facility] [address] [place], [address] GAP 13 Normal 5-15 [facility] Comment on above: Performed By: #### L 400.2010 #### [facility] [address] [place], [address] GFR/1.73 sq M.predicted among non-blacks MDRD (S/P/Bld) [Vol rate/Area] 138 mL/min/{1.73_m2} Normal >60 [facility] Comment on above: Result Comment: mL/m in/1.73m2 CKD-EPI Creatinine Equation (2020) Performed By: #### L 400.2010 #### [facility] [address] [place], [address] Globulin (S) [Mass/Vol] 2.4 g/dL Normal 2.2-4.2 [facility] Comment on above: Performed By: #### L 400.2010 #### [facility] [address] [place], [address] Glucose [Mass/Vol] 103 mg/dL High 70-99 [facility] Comment on above: Performed By: #### L 400.2010 #### [facility] [address] [place], [address] Potassium [Moles/Vol] 4.5 mmol/L Normal 3.3-5.1 [facility] Comment on above: Performed By: #### L 400.2010 #### [facility] [address] [place], [address] Sodium [Moles/Vol] 138 mmol/L Normal 133-145 [facility] Comment on above: Performed By: #### L 400.2010 #### [facility] [address] [place], [address] T PROT 6.2 g/dL Normal 5.9-8.4 [facility] Comment on above: Performed By: #### L 400.2010 #### [facility] [address] [place], [address] Urea nitrogen [Mass/Vol] 5 mg/dL Normal 4-19 [facility] Comment on above: Performed By: #### L 400.2010 #### [facility] [address] [place], [address] Eosinophil percentageOrdered By: Kehinde Anand on 03-11-2025 Eosinophils/100 WBC (Bld) 0.7 % 0-5 [facility] Comment on above: Performed By: #### L 400.2010 #### [facility] [address] [place], [address] Erythrocyte distribution wid th ratioOrdered By: Kehinde Anand on 03-11-2025 Erythrocyte distribution width (RBC) [Ratio] 13.2 % 11.6-14.6 [facility] Comment on above: Performed By: #### L 400.2010 #### [facility] [address] [place], [address] Erythrocyte distribution wid th standard deviationOrdered By: Kehinde nAand on 03-11-2025 Erythrocyte distribution width (RBC) [Ratio] 43.5 fl 35.1-43.9 [facility] Glomerular filtration rate ( GFR) estimation/1.73 sq m using serum, plasma, or whole bOrdered By: Kehinde Anand on 03-11-2025 GFR/1.73 sq M.predicted among non-blacks MDRD (S/P/Bld) [Vol rate/Area] 138 mL/min/{1.73_m2} >60 [facility] Comment on above: mL/min/1.73m2 CKD-EP I Creatinine Equation (2020) Hemoglobin measurementOrdere d By: Kehinde Anand on 03-11-2025 Hemoglobin (Bld) [Mass/Vol] 11.6 g/dL Low 12.0-15.0 [facility] Comment on above: Performed By: #### L 400.2010 #### [facility] [address] [place], [address] Immature granulocytes/100 WB C Auto (Bld)Ordered By: Kehinde Anand on 03-11-2025 Immature granulocytes/100 WBC (Bld) 0.800 % 0.0-0.9 [facility] Comment on above: IG% - Immature Granu locytes (promyelocytes, myelocytes and metamyelocytes) > 1% indicates that a LEFT SHIFT is Present. Laboratory - Chemistry and C hemistry - challengeOrdered By: Kehinde Anand on 03-11-2025 AST [Catalytic activity/Vol] 14 U/L <32 [facility] Glucose Ql (U) Negative [facility] - UrinalysisOrder ed By: Kehinde Anand on 03-11-2025 Protein Ql (U) Negative [facility] MCV (mean corpuscular volume ) determinationOrdered By: Kehinde Anand on 03-11-2025 MCV (RBC) [Entitic vol] 89.9 fL 81-99 [facility] Comment on above: Performed By: #### L 400.2010 #### [facility] [address] [place], [address] Mean corpuscular hemoglobin (MCH) determinationOrdered By: Kehinde Anand on 03-11-2025 MCH (RBC) [Entitic mass] 31.5 pg 27.0-32.0 [facility] Comment on above: Performed By: #### L 400.2010 #### [facility] [address] [place], [address] Mean corpuscular hemoglobin concentration (MCHC) determinationOrdered By: Kehinde Anand on 03-11-2025 MCHC (RBC) [Mass/Vol] 35.0 g/dL 32-36 [facility] Comment on above: Performed By: #### L 400.2010 #### [facility] [address] [place], [address] Mean platelet volume determi nationOrdered By: Kehinde Anand on 03-11-2025 Platelet mean volume (Bld) [Entitic vol] 9.3 fL 6.2-12.0 [facility] Comment on above: Performed By: #### L 400.2010 #### [facility] [address] [place], [address] Monocyte percentageOrdered B y: Kehinde Anand on 03-11-2025 Monocytes/100 WBC (Bld) 8.1 % 0-10 [facility] Comment on above: Performed By: #### L 400.2010 #### [facility] [address] [place], [place], [address] Neutrophil percentageOrdered By: Kehinde Anand on 03-11-2025 Neutrophils/100 WBC (Bld) 79.3 % High 47-70 [facility] Comment on above: Performed By: #### L 400.2010 #### [facility] [address] [place], [place], [address] Nucleated red blood cell per centageOrdered By: Kehinde Anand on 03-11-2025 Nucleated RBC/100 WBC (Bld) [Ratio] 0 % 0-5 [facility] Sfdc Consultant Office Visit Reporton 03-11-2025 Sfdc Consultant Office Visit Report [facility]'[address], [address] [place] [address] OFFICE VISIT Date of Service: 03/11/25 MR#: [id number] Acct: [id number] Name: CHERY MCKEON Rep #: [id number] : 2000 Provider: GISELA Franks ams Age/Sex: 24/F Location: [facility] [place] Status: Signed Intake Vital Signs 01/15/25 14:30 03/03/25 18:25 03/11/25 15:12 03/11/25 15:18 Height 5 ft 5 in 5 ft 5 in 5 ft 5 in 5 ft 5 in Weight: 175 lb 3 oz BMI 29.1 BP 135/86 H Intake Visit Reasons: 24wk ob Chief Complaint: 24wk OB Tentmaker Required: No Is patient in pain?: No Allergies No Known Allergies Allergy (Verified 03/11/25 15:10) Medications ???Medication ???Instructions ???Recorded ???Confirmed ???Type loratadine 10 mg tablet (Allergy 10 mg PO DAILY 11/05/15 03/11/25 H istory Relief (loratadine)) cholecalciferol (vitamin D3) 10 20 mcg PO QDAY 11/03/24 03/11/25 H istory mcg (400 unit) capsule docosahexaenoic acid 200 mg 1 mg PO DAILY 11/03/24 03/11/25 Hi story capsule ( DHA) levothyroxine 25 mcg tablet 50 mcg PO QDAY 11/19/24 03/11/25 H istory (Levo-T) famotidine 20 mg tablet (Pepcid) 20 mg PO BID #60 tabs 03/11/25 Rx Last Menstrual Period: 09/16/24 : No PFSH PFSH Surgical History [place] teeth removed S/P cholecystectomy Family History Grandfather Prostate cancer Grandmother Colon cancer CVA (cerebral vascular accident) Grandmother Dementia Father Diabetes Myocardial infarction Skin cancer Mother Heart disease Thyroid disorder Social History adopted: No household members: spouse housing: house current occupational status: employed current occupation: [employer] current occupational exposures/hazards: No pets and animals: [...] 1-2 times per week duration: 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 OB Visit JACI Calculator Estimated Delivery Date Method Current WG Current Estimate 07/01/25 Ultrasound #1 24w 0d Other Estimates 06/23/25 LMP (Certain) 25w 1d Expected Delivery Route/Plan Labor Preferences- CB/BF classes: [...] 12w 4d 165 lb (-5 lb) 126/86 Negative -???-???-???-???-? ??-???-???-???-??? -???-???-???- Negative 158 -???-???-???-???-? ??-???-???-???-??? -???-???-???- KW- CRL con s with new dates. labs reviewed. no vb/cramping. 5lb weight loss and still having Nausea. IV fluids ord (more content not included)... Normal [facility] Platelet countOrdered By: Jose Luis Anand on 03-11-2025 Platelets (Bld) [#/Vol] 298 10*3/uL 150-450 [facility] Comment on above: Performed By: #### L 400.2010 #### [facility] [address] [place], [address] Potassium measurement (mass/ volume)Ordered By: Kehinde Anand on 03-11-2025 Potassium (Unsp spec) [Mass/Vol] 4.5 mmol/L 3.3-5.1 [facility] Serum creatinine measurement (mass/volume)Ordered By: Kehinde Anand on 03-11-2025 Creatinine [Mass/Vol] 0.45 mg/dL Low 0.70-1.20 [facility] Serum globulin measurementOr dered By: Kehinde Anand on 03-11-2025 Globulin (S) [Mass/Vol] 2.4 g/dL 2.2-4.2 [facility] Serum glucose measurement (m ass/volume)Ordered By: Kehinde Anand on 03-11-2025 Glucose [Mass/Vol] 103 mg/dL High 70-99 [facility] Serum or plasma alanine otoole otransferase (ALT) measurementOrdered By: Kehinde Anand on 03-11-2025 ALT [Catalytic activity/Vol] 9 U/L <35 [facility] Serum or plasma albumin jennifer urement (mass/volume)Ordered By: Kehinde Anand on 03-11-2025 Albumin [Mass/Vol] 3.8 g/dL 3.5-5.0 [facility] Serum or plasma albumin/glob ulin mass ratioOrdered By: Kehinde Anand on 03-11-2025 Albumin/Globulin [Mass ratio] 1.6 {ratio} 0.9-2.4 [facility] Serum or plasma alkaline mari sphatase measurementOrdered By: Kehinde Anand on 03-11-2025 ALP [Catalytic activity/Vol] 65 U/L 35-104 [facility] Serum or plasma calcium jennifer urement (mass/volume)Ordered By: Kehinde Anand on 03-11-2025 Calcium [Mass/Vol] 9.2 mg/dL 7.6-11.0 [facility] Serum or plasma urea nitroge n measurement (mass/volume)Ordered By: Kehinde Anand on 03-11-2025 Urea nitrogen [Mass/Vol] 5 mg/dL 4-19 [facility] Sodium levelOrdered By: Jackie Anand on 03-11-2025 Sodium [Moles/Vol] 138 mmol/L 133-145 [facility] TSH DL <= 0.005 mIU/L QnOrde red By: Kehinde Anand on 03-11-2025 TSH Qn 1.460 uIU/mL 0.300-4.200 [facility] Thyroid Stim Hormone (TSH)on 03-11-2025 TSH 1.460 uIU/mL Normal 0.300-4.200 [facility] Comment on above: Performed By: #### L 400.2010 #### [facility] [place], [place], [id number] Total proteinOrdered By: Ashu Anand on 03-11-2025 Protein [Mass/Vol] 6.2 g/dL 5.9-8.4 [facility] White blood cell (WBC) count Ordered By: Kehinde Anand on 03-11-2025 WBC (Bld) [#/Vol] 12.2 10*3/uL High 4.4-11.0 [facility] Comment on above: Performed By: #### L 400.2010 #### [facility] [address] [facility] [place], [place], [address] Urine Cultureon 03-05-2025 URC Mixed Gram Positive Organisms [place] Count >100,000 MIXC Mixed contaminants. Submit a new specimen if indicated. Normal [facility] Comment on above: Performed By: #### L 900.0098 #### [facility] [address] [place], [place], [address] Bilirubin Test strip Ql (U)O rdered By: Rita Damon on 03-03-2025 Bilirubin Ql (U) Negative Negative [facility] Ketones Test strip Ql (U)Ord ered By: Rita Damon on 03-03-2025 Ketones Ql (U) Negative Negative [facility] Nitrite Test strip Ql (U)Ord ered By: Rita Damon on 03-03-2025 Nitrite Ql (U) Negative Negative [facility] OB Triage Physician Noteon 0 03-03-2025 OB Triage Physician Note [facility] Medical Records Department [address] [place] [address] OB Triage Physician Note 03/03/25 [id number] MR#: [id number] Acct: [id number] Name: CHERY MCKEON Rep #: [id number] : 2000 24 From: Rita Rivas DO PCP: PATRICIA Mckoy Status:DEP CLI Y Location: [facility] HPI - General General Date of Admission: 03/03/25 HPI Narrative CHERY MCKEON, is a 24 y/o @ 22 weeks 6 days who presents to [facility] with abdominal pain. She denies contractions that come and go, vaginal bleeding, and is feeling the baby move. She denies flank pain or RLQ pain. The pain seems to be suprapubic in nature. A UA was collected and was suggestive of a UTI Maternal Data Information JACI Calculator Estimated Delivery Date Method Current WG Current Estimate 07/01/25 Ultrasound #1 23w 5d Other Estimates 06/23/25 LMP (Certain) 24w 6d PFSH PFSH Home Medications ???Medication ???Instructions ???Recorded ???Last Taken ???Type loratadine 10 mg tablet (Allergy 10 mg PO DAILY 11/05/15 03/02/25 H istory Relief (loratadine)) cholecalciferol (vitamin D3) 10 20 mcg PO QDAY 11/03/24 03/02/25 H istory mcg (400 unit) capsule docosahexaenoic acid 200 mg 1 mg PO DAILY 11/03/24 03/02/25 Hi story capsule ( DHA) levothyroxine 25 mcg tablet 50 mcg PO QDAY 11/19/24 03/03/25 H istory (Levo-T) ondansetron 4 mg disintegrating 4 mg PO Q6H PRN nausea and 5 03/02/25 Rx tablet vomiting #90 tabs famotidine 20 mg tablet (Pepcid) 20 mg PO BID #60 tabs 02/09/25 Rx cephalexin 500 mg capsule 500 mg PO BID #14 caps 03/03/25 Un known Rx Allergy/AdvReac Type Severity Reaction Status Date / Time No Known Allergies Allergy Verified 03/03/25 18:40 Family History Grandfather Prostate cancer Grandmother Colon cancer CVA (cerebral vascular accident) Grandmother Dementia Father Diabetes Myocardial infarction Skin cancer Mother Heart disease Thyroid disorder Surgical History [place] teeth removed S/P cholecystectomy Social History adopted: No household members: spouse housing: house current occupational status: employed current occupation: [employer] current occupational exposures/hazards: No pets and animals: [...] 1-2 times per week 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: 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 seatbelt use: always do you feel safe at home: Yes 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 Hx Para Spontaneous abortions 0 Hx # Term Pregnancies Ectopic pregnancies Hx # Pregnancies Multiple births # of living children Visit Details Expected Delivery Route/Plan Labor Preferences- CB/BF classes: [] labor support person: [] labor intervention preferences: [] pain management options preferred: [] cut cord/dad catch: [] : [] PP control planned: [] discussed possible routes of delivery and associated risks: [] special requests: [] Plans Covid status: [] Flu vaccine: [] Tdap vaccine: [] Rhogam: [] LARC form signed: [] Problem list reviewed and updated with the most current plan of care details and appropriate orders placed. Relevant counseling for the gestational age provided. Continue routine care and follow up unless otherwise noted in visit notes/problem list details OB Flowsheet Initial Weight: 170 lb Date -???-???-???-???-? ??-???-???-???-??? [...] 12w 4d 165 lb (-5 lb) 126/86 Negative -???-???-???-???-? ??-???-???-???-??? -???-???-???- N (more content not included)... Normal [facility] Protein Test strip Ql (U)Ord ered By: Rita Damon on 03-03-2025 Protein Ql (U) 30 mg/dl High Negative [facility] Urinalysis, Routine (Dipstic k)on 03-03-2025 BILIRUBIN URINE Negative Normal Negative [facility] Comment on above: Order Comment: DIOGENES MICHAELOR TO SPECIFY Performed By: #### L 400.2010 #### [facility] [address] [place], [place], [id number] Clarity (U) Cloudy Normal Clear [facility] Comment on above: Order Comment: DIOGENES MICHAELOR TO SPECIFY Performed By: #### L 400.2010 #### [facility] [address] [place], [place], [address] Color (U) Yellow Normal Yellow [facility] Comment on above: Order Comment: DIOGENES MICHAELOR TO SPECIFY Performed By: #### L 400.2010 #### [facility] [address] [place], [place], [address] GLUCOSE, UR Normal Normal Normal [facility] Comment on above: Order Comment: COLLE CTOR TO SPECIFY Performed By: #### L 400.2010 #### [facility] [address] [place], [address] KETONE UR Negative Normal Negative [facility] Comment on above: Order Comment: COLLE CTOR TO SPECIFY Performed By: #### L 400.2010 #### [facility] [address] [place], [address] LEUK ESTERASE 500 /ul Abnormal Negative [facility] Comment on above: Order Comment: COLLE CTOR TO SPECIFY Performed By: #### L 400.2010 #### [facility] [address] [place], [address] Nitrite Ql (U) Negative Normal Negative [facility] Comment on above: Order Comment: DIOGENES CTOR TO SPECIFY Performed By: #### L 400.2010 #### [facility] [address] [place], [address] OCCULT BLOOD-UR 250 /ul Abnormal Negative [facility] Comment on above: Order Comment: DIOGENES CTOR TO SPECIFY Performed By: #### L 400.2010 #### [facility] [address] [place], [address] pH UR 7.0 Normal 5.0 - 8.0 [facility] Comment on above: Order Comment: COLLE CTOR TO SPECIFY Performed By: #### L 400.2010 #### [facility] [address] [place], [address] PROT DIPSTX 30 mg/dl Abnormal Negative [facility] Comment on above: Order Comment: DIOGENES CTOR TO SPECIFY Performed By: #### L 400.2010 #### [facility] [address] [place], [address] SP.GR. DIPSTX 1.010 Normal 1.002-1.030 [facility] Comment on above: Order Comment: COLLE CTOR TO SPECIFY Performed By: #### L 400.2010 #### [facility] [address] [place], [place], [address] UROBILI Normal Normal Normal [facility] Comment on above: Order Comment: COLLE CTOR TO SPECIFY Performed By: #### L 400.2010 #### [facility] [address] [place], [place], [address] Urine clarityOrdered By: Rozina Damon on 03-03-2025 Clarity (U) Cloudy Clear [facility] Urine color determinationOrd ered By: Rita Damon on 03-03-2025 Color (U) Yellow Yellow [facility] Urine cultureOrdered By: Rozina Damon on 03-03-2025 Bacteria identified Cx Nom (U) Positive Abnormal [facility] Urine glucose detectionOrder ed By: Rita Damon on 03-03-2025 Glucose Ql (U) Normal mg/dl Normal [facility] Urine leukocyte esterase det ection by dipstickOrdered By: Rita Damon on 03-03-2025 Leukocyte esterase Test strip Ql (U) 500 /ul High Negative [facility] Urine pHOrdered By: Rita Damon on 03-03-2025 pH (U) 7.0 [pH] 5.0 - 8.0 [facility] Urine specific gravity measu rementOrdered By: Rita Damon on 03-03-2025 Specific gravity (U) [Rel density] 1.010 1.002-1.030 [facility] Urine urobilinogen measureme ntOrdered By: Rita Damon on 03-03-2025 Urobilinogen Ql (U) Normal mg/dl Normal [facility] NATERAon 02-18-2025 NATURA SEE SCANNED REPORT Normal [facility] Comment on above: Performed By: #### L 900.0098 #### [facility] [address] [place], [place], [address] Laboratory - Chemistry and C hemistry - challengeOrdered By: Maia Gan on 02-09-2025 Glucose Ql (U) Negative [facility] [facility] - UrinalysisOrder ed By: Maia Gan on 02-09-2025 Protein Ql (U) Negative [facility] Sfdc Consultant Office Visit Reporton 02-09-2025 Sfdc Consultant Office Visit Report [facility]'s [address], [address] [place] [address] OFFICE VISIT Date of Service: 02/09/25 MR#: [id number] Acct: [id number] Name: CHERY MCKEON Rep #: [id number] : 2000 Provider: Dr. Maia dubois MD Age/Sex: 24/F [place] [facility] [place]: Signed Intake Vital Signs 12/21/24 15:20 01/15/25 14:30 02/09/25 10:58 Height 5 ft 5 in 5 ft 5 in 5 ft 5 in Weight: 173 lb 2 oz BMI 28.8 BP 129/83 H Intake Visit Reasons: 22 wk ob Tentmaker Required: No Is patient in pain?: No Allergies No Known Allergies Allergy (Verified 02/09/25 11:01) Medications ???Medication ???Instructions ???Recorded ???Confirmed ???Type loratadine 10 mg tablet (Allergy 10 mg PO DAILY 11/05/15 02/09/25 H istory Relief (loratadine)) cholecalciferol (vitamin D3) 10 20 mcg PO QDAY 11/03/24 02/09/25 H istory mcg (400 unit) capsule docosahexaenoic acid 200 mg 1 mg PO DAILY 11/03/24 02/09/25 Hi story capsule ( DHA) pyridoxine (vitamin B6) 10 mg 10 mg PO QDAY 11/03/24 02/09/25 Hi story tablet levothyroxine 25 mcg tablet 50 mcg PO QDAY 11/19/24 02/09/25 H istory (Levo-T) ondansetron 4 mg disintegrating 4 mg PO Q6H PRN nausea and 5 02/09/25 Rx tablet vomiting #90 tabs famotidine 20 mg tablet (Pepcid) 20 mg PO BID #60 tabs 02/09/25 Rx promethazine 25 mg rectal 25 mg MT Q4-6H PRN nausea and 01/2002/09/25 Rx suppository vomiting #12 ea Last Menstrual Period: 09/16/24 Zika: Zika virus screening: Negative : No PFSH PFSH Surgical History [place] teeth removed S/P cholecystectomy Family History Grandfather Prostate cancer Grandmother Colon cancer CVA (cerebral vascular accident) Grandmother Dementia Father Diabetes Myocardial infarction Skin cancer Mother Heart disease Thyroid disorder Social History adopted: No household members: spouse housing: house current occupational status: employed current occupation: [employer] current occupational exposures/hazards: No pets and animals: [...] 1-2 times per week 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 OB Visit JACI Calculator Estimated Delivery Date Method Current WG Current Estimate 07/01/25 Ultrasound #1 19w 5d Other Estimates 06/23/25 LMP (Certain) 20w 6d Expected Delivery Route/Plan Labor Preferences- CB/BF classes: [...] PAP done with [facility] reports normal. 12/21/24 -???-??? (more content not included)... Normal [facility] - Chemistry and C hemistry - challengeOrdered By: Rita Damon on 01-15-2025 Glucose Ql (U) Negative [facility] - UrinalysisOrder ed By: Rita Damon on 01-15-2025 Protein Ql (U) Negative [facility] Sfdc Consultant Office Visit Reporton 01-15-2025 Sfdc Consultant Office Visit Report [facility]'s [address], [address] [place] [address] OFFICE VISIT Date of Service: 01/15/25 MR#: [id number] Acct: [id number] Name: CHERY MCKEON Rep #: [id number] : 2000 Provider: Dr. Rita Warner DO Age/Sex: 24/F Location: [facility] [place] Status: Signed Intake Vital Signs 11/19/24 08:43 01/06/25 12:36 01/15/25 14:30 Height 5 ft 5 in 5 ft 5 in 5 ft 5 in Weight: 171 lb 2 oz BMI 28.5 BP 124/85 H Intake Visit Reasons: 18wk ob Tentmaker Required: No Is patient in pain?: No Allergies No Known Allergies Allergy (Verified 01/15/25 14:38) Medications ???Medication ???Instructions ???Recorded ???Confirmed ???Type loratadine 10 mg tablet (Allergy 10 mg PO DAILY 11/05/15 01/15/25 H istory Relief (loratadine)) cholecalciferol (vitamin D3) 10 20 mcg PO QDAY 11/03/24 01/15/25 H istory mcg (400 unit) capsule docosahexaenoic acid 200 mg 1 mg PO DAILY 11/03/24 01/15/25 Hi story capsule ( DHA) pyridoxine (vitamin B6) 10 mg 10 mg PO QDAY 11/03/24 01/15/25 Hi story tablet levothyroxine 25 mcg tablet 50 mcg PO QDAY 11/19/24 01/15/25 H istory (Levo-T) ondansetron 4 mg disintegrating 4 mg PO Q6H PRN nausea and 01/15/25 Rx tablet vomiting #90 tabs promethazine 25 mg rectal 25 mg MT Q4-6H PRN nausea and 09/1501/15/25 Rx suppository vomiting #12 ea Last Menstrual Period: 09/16/24 Zika: Zika virus screening: Negative : No PFSH PFSH Surgical History [place] teeth removed S/P cholecystectomy Family History Grandfather Prostate cancer Grandmother Colon cancer CVA (cerebral vascular accident) Grandmother Dementia Father Diabetes Myocardial infarction Skin cancer Mother Heart disease Thyroid disorder Social History adopted: No household members: spouse housing: house current occupational status: employed current occupation: [employer] current occupational exposures/hazards: No pets and animals: [...] 1-2 times per week duration: 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 OB Visit JACI Calculator Estimated Delivery Date Method Current WG Current Estimate 07/01/25 Ultrasound #1 16w 1d Other Estimates 06/23/25 LMP (Certain) 17w 2d Expected Delivery Route/Plan Labor Preferences- CB/BF classes: [...] 12w 4d 165 lb (-5 lb) 126/86 Negative (more content not included)... Normal [facility] - Chemistry and C hemistry - challengeOrdered By: Kehinde Anand on 12-21-2024 Glucose Ql (U) Negative [facility] - UrinalysisOrder ed By: Kehinde Anand on 12-21-2024 Protein Ql (U) Negative [facility] Sfdc Consultant Office Visit Reporton 12-21-2024 Sfdc Consultant Office Visit Report [facility]'s [address], [address] [place] [address] OFFICE VISIT Date of Service: 12/21/24 MR#: [id number] Acct: [id number] Name: CHERY MCKEON Rep #: [id number] : 2000 Provider: GISELA Franks ams Age/Sex: 24/F Location: [facility] [place] Status: Signed Intake Vital Signs 11/05/15 16:09 11/19/24 08:43 12/21/24 15:20 Height 5 ft 5 in 5 ft 5 in 5 ft 5 in Weight: 170 lb 6 oz 165 lb BMI 28.3 27.4 BP 130/86 H 126/86 H Intake Visit Reasons: 12wk ob Chief Complaint: 12wk OB Tentmaker Required: No Is patient in pain?: No [...] tabs promethazine 25 mg rectal 25 mg MT Q4-6H PRN nausea and 09/1512/21/24 Rx suppository vomiting #12 ea Last Menstrual Period: 09/16/24 PFSH PFSH Surgical History [place] teeth removed S/P cholecystectomy Family History Grandfather Prostate cancer Grandmother Colon cancer CVA (cerebral vascular accident) Grandmother Dementia Father Diabetes Myocardial infarction Skin cancer Mother Heart disease Thyroid disorder Social History adopted: No household members: spouse housing: house current occupational status: employed current occupation: [employer] current occupational exposures/hazards: No pets and animals: [...] 1-2 times per week duration: 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 Normal [facility] TSH DL <= 0.005 mIU/L QnOrde red By: Kehinde Anand on 12-21-2024 TSH Qn 0.814 uIU/mL 0.300-4.200 [facility] Thyroid Stim Hormone (TSH)on 12-21-2024 TSH 0.814 uIU/mL Normal 0.300-4.200 [facility] Comment on above: Performed By: #### L 501.9520 #### [facility] [address] [place], [place], [id number] L3410.9992on 11-26-2024 [facility] [place]. COMMENT Normal . [facility] Comment on above: Order Comment: COLLE CTOR TO SPECIFY Result Comment: Test Ordered: [id number] TSH Receptor Antibody (TBII) TSH Receptor Antibody (TBII) <0.3 U/L Reference Range: . Reference Range: Antibody Titer: <1.0 U/L = Negative 1.1 - 1.5 U/L = Equivocal >1.5 U/L = Positive Performed at: [facility] [address] [place] [id number] Special Education Tutor: Jeronimo Holden MD, Phone: [phone] Performed at: [facility] [id number] Special Education Tutor: Sandeep Bae PhD, Phone: [phone] Performed By: #### L 400.2010 #### [facility] [address] [place], [place], [id number] Chlamydia/GC ANIRUDH aptimaon CHLAMY,NUC ACID Negative Normal Negative [facility] Comment on above: Performed By: #### L 400.2010 #### [facility] [address] [place], [place], [id number] GC BY NUC ACID Negative Normal Negative [facility] Comment on above: Result Comment: Perf ormed at: =G - [facility] [address] [id number] Special Education Tutor: Alina Arreola MD, Phone: [phone] Performed By: #### L 400.2010 #### [facility] [address] [place], [address] Urine Cultureon 11-21-2024 URC #1, 2 Below infection level. [facility]PC Poss Enterococcus sp [place] Count <1000 Mixed Gram Positive Organisms Mixed Gram Positive Organisms MIXC Mixed contaminants. Submit a new specimen if indicated. Normal [facility] Comment on above: Performed By: #### L 400.2010 #### [facility] [address] [place], [place], [id number] Absolute lymphocyte countOrd ered By: Mechelle Francois on 11-19-2024 Lymphocytes Auto (Unsp spec) [#/Vol] 1.42 10*3/uL 0.83-4.51 [facility] Absolute neutrophil countOrd ered By: Mechelle Priscila on 11-19-2024 Neutrophils (Bld) [#/Vol] 5.9 10*3/uL 2.0-7.7 [facility] Automated lymphocyte count a s percentage of total leukocytesOrdered By: Mechelle Francois on 11-19-2024 Lymphocytes/100 WBC Auto (Unsp spec) 17.2 % Low 19-41 [facility] Basophil percentageOrdered B y: Mechelle Francois on 11-19-2024 Basophils/100 WBC (Bld) 0.4 % 0-1 [facility] CBC W/Diff, Automatedon Absolute Lymph 1.42 X10 3/uL Normal 0.83-4.51 [facility] Comment on above: Performed By: #### L 3890.6301, BTS, L3410.9992, L100.0100, L501.9520, L506.0400, L509.4006, L509.8002, L3890.6006, L3890.6102 #### [facility] [address] [place], [address] Absolute Neut 5.9 X10 3/uL Normal 2.0-7.7 [facility] Comment on above: Performed By: #### L 3890.6301, BTS, L3410.9992, L100.0100, L501.9520, L506.0400, L509.4006, L509.8002, L3890.6006, L3890.6102 #### [facility] [address] [place], [address] Basophils/100 WBC (Bld) 0.4 % Normal 0-1 [facility] Comment on above: Performed By: #### L 3890.6301, BTS, L3410.9992, L100.0100, L501.9520, L506.0400, L509.4006, L509.8002, L3890.6006, L3890.6102 #### [facility] [address] [place], [address] Eosinophils/100 WBC (Bld) 0.7 % Normal 0-5 [facility] Comment on above: Performed By: #### L 3890.6301, BTS, L3410.9992, L100.0100, L501.9520, L506.0400, L509.4006, L509.8002, L3890.6006, L3890.6102 #### [facility] [address] [place], [address] Erythrocyte distribution width (RBC) [Ratio] 12.2 % Normal 11.6-14.6 [facility] Comment on above: Performed By: #### L 3890.6301, BTS, L3410.9992, L100.0100, L501.9520, L506.0400, L509.4006, L509.8002, L3890.6006, L3890.6102 #### [facility] [address] [place], [address] Hematocrit (Bld) [Volume fraction] 38.9 % Normal 37-47 [facility] Comment on above: Performed By: #### L 3890.6301, BTS, L3410.9992, L100.0100, L501.9520, L506.0400, L509.4006, L509.8002, L3890.6006, L3890.6102 #### [facility] [address] [place], [address] Hemoglobin (Bld) [Mass/Vol] 13.7 g/dL Normal 12.0-15.0 [facility] Comment on above: Performed By: #### L 3890.6301, BTS, L3410.9992, L100.0100, L501.9520, L506.0400, L509.4006, L509.8002, L3890.6006, L3890.6102 #### [facility] [address] [place], [address] IG% 0.400 Normal 0.0-0.9 [facility] Comment on above: Result Comment: IG% - Immature Granulocytes (promyelocytes, myelocytes and metamyelocytes) > 1% indicates that a LEFT SHIFT is Present. Performed By: #### L 3890.6301, BTS, L3410.9992, L100.0100, L501.9520, L506.0400, L509.4006, L509.8002, L3890.6006, L3890.6102 #### [facility] [address] [place], [address] Lymphocytes/100 WBC (Bld) 17.2 % Low 19-41 [facility] Comment on above: Performed By: #### L 3890.6301, BTS, L3410.9992, L100.0100, L501.9520, L506.0400, L509.4006, L509.8002, L3890.6006, L3890.6102 #### [facility] [address] [place], [address] MCH (RBC) [Entitic mass] 30.5 pg Normal 27.0-32.0 [facility] Comment on above: Performed By: #### L 3890.6301, BTS, L3410.9992, L100.0100, L501.9520, L506.0400, L509.4006, L509.8002, L3890.6006, L3890.6102 #### [facility] [address] [place], [address] MCHC (RBC) [Mass/Vol] 35.2 g/dL Normal 32-36 [facility] Comment on above: Performed By: #### L 3890.6301, BTS, L3410.9992, L100.0100, L501.9520, L506.0400, L509.4006, L509.8002, L3890.6006, L3890.6102 #### [facility] [address] [facility] [place], [address] MCV (RBC) [Entitic vol] 86.6 fL Normal 81-99 [facility] Comment on above: Performed By: #### L 3890.6301, BTS, L3410.9992, L100.0100, L501.9520, L506.0400, L509.4006, L509.8002, L3890.6006, L3890.6102 #### [facility] [address] [facility] [place], [address] Monocytes/100 WBC (Bld) 10.0 % Normal 0-10 [facility] Comment on above: Performed By: #### L 3890.6301, BTS, L3410.9992, L100.0100, L501.9520, L506.0400, L509.4006, L509.8002, L3890.6006, L3890.6102 #### [facility] [address] [place], [address] Neutrophils/100 WBC (Bld) 71.3 % High 47-70 [facility] Comment on above: Performed By: #### L 3890.6301, BTS, L3410.9992, L100.0100, L501.9520, L506.0400, L509.4006, L509.8002, L3890.6006, L3890.6102 #### [facility] [address] [place], [address] Nucleated RBC (Bld) [#/Vol] 0 10*3/uL Normal 0-5 [facility] Comment on above: Performed By: #### L 3890.6301, BTS, L3410.9992, L100.0100, L501.9520, L506.0400, L509.4006, L509.8002, L3890.6006, L3890.6102 #### [facility] [address] [facility] [place], [address] Platelet mean volume (Bld) [Entitic vol] 9.4 fL Normal 6.2-12.0 [facility] Comment on above: Performed By: #### L 3890.6301, BTS, L3410.9992, L100.0100, L501.9520, L506.0400, L509.4006, L509.8002, L3890.6006, L3890.6102 #### [facility] [address] [facility] [place], [address] Platelets (Bld) [#/Vol] 355 10*3/uL Normal 150-450 [facility] Comment on above: Performed By: #### L 3890.6301, BTS, L3410.9992, L100.0100, L501.9520, L506.0400, L509.4006, L509.8002, L3890.6006, L3890.6102 #### [facility] [address] [facility] [address] [place], [address] RBC (Bld) [#/Vol] 4.49 10*6/uL Normal 4.2-5.4 [facility] Comment on above: Performed By: #### L 3890.6301, BTS, L3410.9992, L100.0100, L501.9520, L506.0400, L509.4006, L509.8002, L3890.6006, L3890.6102 #### [facility] [address] [place] [place], [address] RDW SD 38.7 fl Normal 35.1-43.9 [facility] Comment on above: Performed By: #### L 3890.6301, BTS, L3410.9992, L100.0100, L501.9520, L506.0400, L509.4006, L509.8002, L3890.6006, L3890.6102 #### [facility] [address] [place] [place], [address] (241) WBC (Bld) [#/Vol] 8.3 10*3/uL Normal 4.4-11.0 [facility] Comment on above: Performed By: #### L 3890.6301, BTS, L3410.9992, L100.0100, L501.9520, L506.0400, L509.4006, L509.8002, L3890.6006, L3890.6102 #### [facility] [address] [facility] [place], [address] Chlamydia trachomatis rRNA d etection by probe and target amplification methodOrdered By: Mechelle Francois on 11-19-2024 C. trachomatis rRNA ANIRUDH+probe Ql (Unsp spec) Negative Negative [facility] Eosinophil percentageOrdered By: Mechelle Francois on 11-19-2024 Eosinophils/100 WBC (Bld) 0.7 % 0-5 [facility] Erythrocyte distribution wid th ratioOrdered By: Mechelle Francois on 11-19-2024 Erythrocyte distribution width (RBC) [Ratio] 12.2 % 11.6-14.6 [facility] Erythrocyte distribution wid th standard deviationOrdered By: Mechelle Brilliant on 11-19-2024 Erythrocyte distribution width (RBC) [Ratio] 38.7 fl 35.1-43.9 [facility] HIVon 11-19-2024 HIV Non-Reactive Normal Nonreactive [facility] Comment on above: Result Comment: Non- Reactive Reactive Repeatedly reactive samples must be confirmed according to CDC recommended confirmatory algorithms. The subresults for either HIVAG or AHIV can be used as an aid in the selection of the confirmation algorithm for reactive samples. Send out specimens with Reactive results to [facility] for confirmation. Order the HIV antibody detection and differentiation: lc#[id number] Performed By: #### L 3890.6301, BTS, L3410.9992, L100.0100, L501.9520, L506.0400, L509.4006, L509.8002, L3890.6006, L3890.6102 #### [facility] [address] [place], [address] Hematocrit Auto (Bld) [Volum e fraction]Ordered By: Mechelle Francois on 11-19-2024 Hematocrit (Bld) [Volume fraction] 38.9 % 37-47 [facility] Hemoglobin measurementOrdere d By: Mechelle Francois on 11-19-2024 Hemoglobin (Bld) [Mass/Vol] 13.7 g/dL 12.0-15.0 [facility] Hepatitis C Antibodyon 11-19 Hepatitis C Ab Non-Reactive Normal Nonreactive [facility] Comment on above: Result Comment: Reac tive: Presumptive evidence of antibodies to HCV. Follow CDC recommendations for supplemental testing. Non-Reactive: Antibodies to HCV were not detected; does not exclude the possibility of exposure to HCV Reactive Results are presumptive evidence of antibodies to HCV. Follow CDC recommendations for supplemental testing. Order confirmation testing: HCV Quant by PCR testing - HCVPCR #[id number] Non Reactive: < 0.8 Equivocal: >/= 0.8 to < 1.0 Reactive: >/= 1.0 The CDC requires that a reactive/equivocal HCV antibody result be sent out for confirmation. HCV Quant by PCR testing. Performed By: #### L 400.2010 #### [facility] [address] [facility] [place], [place], [id number] Immature granulocytes/100 WB C Auto (Bld)Ordered By: Mechelle Francois on 11-19-2024 Immature granulocytes/100 WBC (Bld) 0.400 % 0.0-0.9 [facility] Comment on above: IG% - Immature Granu locytes (promyelocytes, myelocytes and metamyelocytes) > 1% indicates that a LEFT SHIFT is Present. L3890.6102on 11-19-2024 HEP B Surf Ag Non-Reactive Normal Nonreactive [facility] Comment on above: Result Comment: Reac tive: Presumptive evidence of HBV. Repeatedly reactive samples must be confirmed using a neutralization test ([employer] HBsAg Confirmatory Test) Non-Reactive: HBsAg not detected; does not exclude the possibility of exposure to HBV Performed By: #### L 3890.6301, BTS, L3410.9992, L100.0100, L501.9520, L506.0400, L509.4006, L509.8002, L3890.6006, L3890.6102 #### [facility] [address] [facility] [place], [place], [id number] L509.4006on 11-19-2024 Rubella IgG REAC Normal Nonreactive [facility] Comment on above: Result Comment: Anti body Result: Interpretation Non-Reactive: Non-Immune Reactive: Immune The following results were obtained with the [employer] Rubella IgG assay. Results from assays of other manufacturers cannot be used interchangeably. Performed By: #### L 3890.6301, BTS, L3410.9992, L100.0100, L501.9520, L506.0400, L509.4006, L509.8002, L3890.6006, L3890.6102 #### [facility] [address] [place], [place], [id number] Laboratory - Microbiology an d Antimicrobial susceptibilityOrdered By: Mechelle Francois on 11-19-2024 HBV surface Ag Ql (S) Non-Reactive Nonreactive [facility] Comment on above: Reactive: Presumptiv e evidence of HBV. Repeatedly reactive samples must be confirmed using a neutralization test ([employer] HBsAg Confirmatory Test)Non-Reactive: HBsAg not detected; does not exclude the possibility of exposure to HBV MCV (mean corpuscular volume ) determinationOrdered By: Mechelle Francois on 11-19-2024 MCV (RBC) [Entitic vol] 86.6 fL 81-99 [facility] Mean corpuscular hemoglobin (MCH) determinationOrdered By: Mechelle Francois on 11-19-2024 MCH (RBC) [Entitic mass] 30.5 pg 27.0-32.0 [facility] Mean corpuscular hemoglobin concentration (MCHC) determinationOrdered By: Mechelle Francois on 11-19-2024 MCHC (RBC) [Mass/Vol] 35.2 g/dL 32-36 [facility] Mean platelet volume determi nationOrdered By: Mechelle Francois on 11-19-2024 Platelet mean volume (Bld) [Entitic vol] 9.4 fL 6.2-12.0 [facility] Monocyte percentageOrdered B y: Mechelle Francois on 11-19-2024 Monocytes/100 WBC (Bld) 10.0 % 0-10 [facility] Neisseria gonorrhoeae nuclei c acid detection by amplified probe techniqueOrdered By: Mechelle Francois on 11-19-2024 N. gonorrhoeae DNA ANIRUDH+probe Ql (Unsp spec) Negative Negative [facility] Comment on above: Performed at: =[facility] [address] [id number] Director: Alina Arreola MD, Phone: [phone] Neutrophil percentageOrdered By: Mechelle Francois on 11-19-2024 Neutrophils/100 WBC (Bld) 71.3 % High 47-70 [facility] No Panel InformationOrdered By: Mechelle Francois on 11-19-2024 HIV (1&2) Antibody Non-Reactive Nonreactive [facility] Comment on above: Non-ReactiveReactive Repeatedly reactive samples must be confirmed according to CDC recommended confirmatory algorithms. The subresults for either HIVAG or AHIV can be used as an aid in the selection of the confirmation algorithm for reactive samples.Send out specimens with Reactive results to [facility] for confirmation.Order the HIV antibody detection and differentiation: #[id number] Nucleated red blood cell per centageOrdered By: Mechelle Francois on 11-19-2024 Nucleated RBC/100 WBC (Bld) [Ratio] 0 % 0-5 [facility] Sfdc Consultant Office Visit Reporton 11-19-2024 Sfdc Consultant Office Visit Report [facility]'s [address], [address] [place] [address] OFFICE VISIT Date of Service: 11/19/24 MR#: [id number] Acct: [id number] Name: CHERY MCKEON Rep #: [id number] : 2000 Provider: GISELA Franks ams Age/Sex: 23/F Location[place] [facility] [place] Status: Signed Intake Vital Signs 11/05/15 16:09 11/03/24 10:46 11/19/24 08:43 Height 5 ft 5 in 5 ft 5 in 5 ft 5 in Weight: 170 lb 6 oz BMI 28.3 BP 130/86 H Intake Visit Reasons: NOB LMP 09/16 Chief Complaint: New OB Tentmaker Required: No Is patient in pain?: No [...] past year?: No PFSH PFSH Surgical History [place] teeth removed S/P cholecystectomy Family History Grandfather Prostate cancer Grandmother Colon cancer CVA (cerebral vascular accident) Grandmother Dementia Father Diabetes Myocardial infarction Skin cancer Mother Heart disease Thyroid disorder Social History adopted: No household members: spouse housing: house current occupational status: employed current occupation: [employer] current occupational exposures/hazards: No pets and animals: [...] 1-2 times per week duration: 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 Normal [facility] Platelet countOrdered By: Pito Francois on 11-19-2024 Platelets (Bld) [#/Vol] 355 10*3/uL 150-450 [facility] RBC Auto (Bld) [#/Vol]Ordere d By: Mechelle Francois on 11-19-2024 RBC (Bld) [#/Vol] 4.49 10*6/uL 4.2-5.4 [facility] Syphilis Antibodieson 2024 Syphilis Abs Non-Reactive Normal Nonreactive [facility] Comment on above: Performed By: #### L 3890.6301, BTS, L3410.9992, L100.0100, L501.9520, L506.0400, L509.4006, L509.8002, L3890.6006, L3890.6102 #### [facility] [address] [place], [place], [id number] T4 Free Directon 11-19-2024 T4 FREE DIRECT 1.30 ng/dL Normal 0.76-1.46 [facility] Comment on above: Performed By: #### L 3890.6301, BTS, L3410.9992, L100.0100, L501.9520, L506.0400, L509.4006, L509.8002, L3890.6006, L3890.6102 #### [facility] [address] [place], [place], [id number] T4 freeOrdered By: Mechelle berkowitz on 11-19-2024 Free T4 [Mass/Vol] 1.30 ng/dL 0.76-1.46 [facility] TSH DL <= 0.005 mIU/L QnOrde red By: Mechelle Francois on 11-19-2024 TSH Qn 3.300 uIU/mL 0.300-4.200 [facility] Thyroid Stim Hormone (TSH)on 11-19-2024 TSH 3.300 uIU/mL Normal 0.300-4.200 [facility] Comment on above: Performed By: #### L 3890.6301, BTS, L3410.9992, L100.0100, L501.9520, L506.0400, L509.4006, L509.8002, L3890.6006, L3890.6102 #### [facility] [address] [place], [address] Type AND Screenon 11-19-2024 ABO and Rh group Nom (Bld) Blood group O Rh(D) positive Normal [facility] Comment on above: Order Comment: COLLE CTOR TO SPECIFY Performed By: #### L 400.2010 #### [facility] [address] [place], [place], [address] Urine cultureOrdered By: Dada Francois on 11-19-2024 Bacteria identified Cx Nom (U) GPC Poss Enterococcus sp Abnormal [facility] Bacteria identified Cx Nom (U) Positive Abnormal [facility] White blood cell (WBC) count Ordered By: Mechelle Francois on 11-19-2024 WBC (Bld) [#/Vol] 8.3 10*3/uL 4.4-11.0 [facility] - Chemistry and C hemistry - challengeOrdered By: Mechelle Francois on 11-03-2024 HCG ( test) Ql (U) Positive [facility] Office Visit Reporton 2024 Office Visit Report [facility] [address] [place] [address] OFFICE VISIT Date of Service: 11/03/24 MR#: [id number] Acct: [id number] Patient: CHERY MCKEON Rep #: [id number] : 2000 Provider: CHANG church Age/Sex: 23/F Location: [facility] [place] Status: Signed Intake Vital Signs 11/05/15 16:09 [...] and NOB scheduled 11/03/24 1213 Date Mechelle Francois NP GASOLINE CATALYST OPERATOR-C Cosigner Signature: Date (if applicable) CC: Normal [facility] CBC (INCLUDES DIFF/PLT)on Basophils (Bld) [#/Vol] 0.038 10*3/uL Normal 0-200 [facility] Comment on above: Performed By: #### 6 399, 28036, 106, 447 #### [facility] [place] [id number] Theatrical Dresser: Jimbo Sal MD Basophils/100 WBC (Bld) 0.4 % Normal [facility] Comment on above: Performed By: #### 6 399, 32155, 264, 394 #### [facility] [address], [address] [place] [id number] Theatrical Dresser: Jimbo Sal MD Eosinophils (Bld) [#/Vol] 0.094 10*3/uL Normal 15-500 [facility] Comment on above: Performed By: #### 6 399, 05988, , 866 #### [facility] of [place] [address] Theatrical Dresser: Jimbo Sal MD Eosinophils/100 WBC (Bld) 1.0 % Normal [facility] Comment on above: Performed By: #### 6 399, 82316, , 866 #### [facility] [place] [address] Theatrical Dresser: Jimbo Sla MD Erythrocyte distribution width (RBC) [Ratio] 12.0 % Normal 11.0-15.0 [facility] Comment on above: Performed By: #### 6 399, 76067, , 866 #### [facility] of [place] [address] Theatrical Dresser: Jimbo Sal MD Hematocrit (Bld) [Volume fraction] 41.9 % Normal 35.0-45.0 [facility] Comment on above: Performed By: #### 6 399, 43272, , 866 #### [facility] [place] [address] Theatrical Dresser: Jimbo Sal MD Hemoglobin (Bld) [Mass/Vol] 14.1 g/dL Normal 11.7-15.5 [facility] Comment on above: Performed By: #### 6 399, 03212, , 866 #### [facility] of [place] [address] Theatrical Dresser: Jimbo Sal MD Lymphocytes (Bld) [#/Vol] 1.645 10*3/uL Normal 850-3900 [facility] Comment on above: Performed By: #### 6 399, 93805, , 866 #### [facility] of [place] [address] Theatrical Dresser: Jimbo Sal MD Lymphocytes/100 WBC (Bld) 17.5 % Normal [facility] Comment on above: Performed By: #### 6 399, , , 866 #### [facility] of [place] [address] Theatrical Dresser: Jimbo aSl MD MCH (RBC) [Entitic mass] 30.8 pg Normal 27.0-33.0 [facility] Comment on above: Performed By: #### 6 399, , , 866 #### [facility] [place] [address] Theatrical Dresser: Jimbo Sal MD MCHC (RBC) [Mass/Vol] 33.7 [...] clinical condition. Performed By: #### 6 399, , , 866 #### [facility] [place] [address] Theatrical Dresser: Jimbo Sal MD MCV (RBC) [Entitic vol] 91.5 fL Normal 80.0-100.0 [facility] Comment on above: Performed By: #### 6 399, , , 866 #### [facility] [place] [address] Theatrical Dresser: Jimbo Sal MD Monocytes (Bld) [#/Vol] 0.752 10*3/uL Normal 200-950 [facility] Comment on above: Performed By: #### 6 399, , , 866 #### [facility] [place] [address] Theatrical Dresser: Jimbo Sal MD Monocytes/100 WBC (Bld) 8.0 % Normal [facility] Comment on above: Performed By: #### 6 399, , , 866 #### [facility] of [place] [address] Theatrical Dresser: Jimbo Sal MD Neutrophils (Bld) [#/Vol] 6.871 10*3/uL Normal 6117-7362 [facility] Comment on above: Performed By: #### 6 399, 41128, 899, 866 #### [facility] of [place] [address] Theatrical Dresser: Jimbo Sal MD Neutrophils/100 WBC (Bld) 73.1 % Normal [facility] Comment on above: Performed By: #### 6 399, 33065, 89, 866 #### [facility] of [place] [address] Theatrical Dresser: Jimbo Sal MD Platelet mean volume (Bld) [Entitic vol] 9.4 fL Normal 7.5-12.5 [facility] Comment on above: Performed By: #### 6 399, 73020, 89, 866 #### [facility] of [place] [address] Theatrical Dresser: Jimbo Sal MD Platelets (Bld) [#/Vol] 401 10*3/uL High 140-400 [facility] Comment on above: Performed By: #### 6 399, 14936, 89, 866 #### [facility] of [place] [address] Theatrical Dresser: Jimbo Sal MD RBC (Bld) [#/Vol] 4.58 10*6/uL Normal 3.80-5.10 [facility] Comment on above: Performed By: #### 6 399, 58799, 899, 866 #### [facility] of [place] [address] Theatrical Dresser: Jimbo Sal MD WBC (Bld) [#/Vol] 9.4 10*3/uL Normal 3.8-10.8 [facility] Comment on above: Performed By: #### 6 399, 44008, 89, 866 #### [facility] of [place] [address] Theatrical Dresser: Jimbo Sal MD [facility] 06-14-2024 Albumin [Mass/Vol] 4.6 g/dL Normal 3.6-5.1 [facility] Comment on above: Performed By: #### 6 399, 98194, 89, 866 #### [facility] of [place] [address] Theatrical Dresser: Jimbo Sal MD Albumin/Globulin [Mass ratio] 2.1 {ratio} Normal 1.0-2.5 [facility] Comment on above: Performed By: #### 6 399, 62703, , 866 #### [facility] of [place] [address] Theatrical Dresser: Jimbo Sal MD ALP [Catalytic activity/Vol] 47 U/L Normal 31-125 [facility] Comment on above: Performed By: #### 6 399, 05647, , 866 #### [facility] of [place] [address] Theatrical Dresser: Jimbo Sal MD ALT [Catalytic activity/Vol] 16 U/L Normal 6-29 [facility] Comment on above: Performed By: #### 6 399, 41994, 89, 866 #### [facility] of [place] [address] Theatrical Dresser: Jimbo Sal MD AST [Catalytic activity/Vol] 19 U/L Normal 10-30 [facility] Comment on above: Performed By: #### 6 399, 29978, 89, 866 #### [facility] of [place] [address] Theatrical Dresser: Jimbo Sal MD Bilirubin [Mass/Vol] 0.4 mg/dL Normal 0.2-1.2 [facility] Comment on above: Performed By: #### 6 399, 82494, 89, 866 #### [facility] [place] [address] Theatrical Dresser: Jimbo Sal MD BUN/CREATININE RATIO SEE NOTE: Normal 6-22 [facility] Comment on above: Result Comment: Not Reported: BUN and Creatinine are within reference range. Performed By: #### 6 399, 80403, , 866 #### [facility] [place] [address] Theatrical Dresser: Jimbo Sal MD Calcium [Mass/Vol] 9.9 mg/dL Normal 8.6-10.2 [facility] Comment on above: Performed By: #### 6 399, 98811, , 866 #### [facility] [place] [address] Theatrical Dresser: Jimbo Sal MD Chloride [Moles/Vol] 106 mmol/L Normal 98-110 [facility] Comment on above: Performed By: #### 6 399, 87705, , 866 #### [facility] [place] [address] Theatrical Dresser: Jimbo Sal MD CO2 [Moles/Vol] 24 mmol/L Normal 20-32 [facility] Comment on above: Performed By: #### 6 399, 60818, , 866 #### [facility] [place] [address] Theatrical Dresser: Jimbo Sal MD Creatinine [Mass/Vol] 0.70 mg/dL Normal 0.50-0.96 [facility] Comment on above: Performed By: #### 6 399, 64650, , 866 #### [facility] of [place] [address] Theatrical Dresser: Jimbo Sal MD GFR/1.73 sq M.predicted among non-blacks MDRD (S/P/Bld) [Vol rate/Area] 125 mL/min/{1.73_m2} Normal > OR = 60 [facility] Comment on above: Performed By: #### 6 399, 43834, , 866 #### [facility] of [address], [address] [place] [address] Theatrical Dresser: Jimbo Sal MD Globulin (S) [Mass/Vol] 2.2 g/dL Normal 1.9-3.7 [facility] Comment on above: Performed By: #### 6 399, 51187, , 866 #### [facility] of [place] [address] Theatrical Dresser: Jimbo Sal MD Glucose [Mass/Vol] 89 mg/dL Normal 65-99 [facility] Comment on above: Result Comment: Fasting reference interval Performed By: #### 6 399, 05734, , 866 #### [facility] [place] [address] Theatrical Dresser: iJmbo Sal MD Potassium [Moles/Vol] 4.1 mmol/L Normal 3.5-5.[address] [facility] Comment on above: Performed By: #### 6 399, 12736, , 866 #### [facility] [place] [address] Theatrical Dresser: Jimbo Sal MD Protein [Mass/Vol] 6.8 g/dL Normal 6.1-8.1 [facility] Comment on above: Performed By: #### 6 399, 38258, , 866 #### [facility] [place] [address] Theatrical Dresser: Jimbo Sal MD Sodium [Moles/Vol] 138 mmol/L Normal 135-146 [facility] Comment on above: Performed By: #### 6 399, 50704, , 866 #### [facility] of [place] [address] Theatrical Dresser: Jimbo Sal MD Urea nitrogen [Mass/Vol] 12 mg/dL Normal 7-25 [facility] Comment on above: Performed By: #### 6 399, 32241, , 866 #### [facility] [address], [address] [place] [address] Theatrical Dresser: Jimbo Sal MD FERRITINon 06-14-2024 Ferritin [Mass/Vol] 19 ng/mL Normal 16-154 [facility] Comment on above: Performed By: #### 6 399, 43429, 899, 866 #### [facility] [place] [address] Theatrical Dresser: Jimbo Sal MD T4, FREEon 06-14-2024 Free T4 [Mass/Vol] 1.3 ng/dL Normal 0.8-1.8 [facility] Comment on above: Performed By: #### 6 399, 69914, 189, 866 #### [facility] [place] [address] Theatrical Dresser: Jimbo Sal MD TSHon 06-14-2024 TSH Qn 1.71 m[IU]/L Normal [facility] Comment on above: Result Comment: Refe rence Range > or = 20 Years 0.40-4.50 Ranges First trimester 0.26-2.66 Second trimester 0.55-2.73 Third trimester 0.43-2.91 Performed By: #### 6 399, 14492, 077, 866 #### [facility] [place] [address] Theatrical Dresser: Jimbo Sal MD Laboratory - Chemistry and C hemistry - challengeon 06-12-2024 Albumin [Mass/Vol] 4.6 g/dL Normal 3.6 - 5.1 g/dL [facility], [facility].; [facility], [facility]. Albumin/Globulin [Mass ratio] 2.1 {ratio} Normal 1.0 - 2.5 [facility], [facility].; [facility], [facility]. ALP [Catalytic activity/Vol] 47 U/L Normal 31 - 125 U/L [facility], [facility].; [facility], [facility]. ALT [Catalytic activity/Vol] 16 U/L Normal 6 - 29 U/L [facility], [facility].; [facility], [facility]. AST [Catalytic activity/Vol] 19 U/L Normal 10 - 30 U/L [facility].; [facility], [facility] Bilirubin [Mass/Vol] 0.4 mg/dL Normal 0.2 - 1.2 mg/dL [facility].; [facility], [facility] Calcium [Mass/Vol] 9.9 mg/dL Normal 8.6 - 10. 2 mg/dL [facility]; [facility], [facility] Chloride [Moles/Vol] 106 mmol/L Normal 98 - 110 mmol/L [facility]; [facility], [facility] CO2 [Moles/Vol] 24 mmol/L Normal 20 - 32 mmol/L [facility]; [facility], [facility] Creatinine [Mass/Vol] 0.70 mg/dL Normal 0.50 - 0.96 mg/dL [facility]; [facility], [facility] Ferritin [Mass/Vol] 19 ng/mL Normal 16 - 154 ng/mL [facility]; [facility], [facility] Free T4 [Mass/Vol] 1.3 ng/dL Normal 0.8 - 1.8 ng/dL [facility]; [facility], [facility] GFR/1.73 sq M.predicted among non-blacks MDRD (S/P/Bld) [Vol rate/Area] 125 mL/min/{1.73_m2} Normal [facility]; [facility], [facility] Glucose [Mass/Vol] 89 mg/dL Normal 65 - 99 mg/dL [facility].; [facility], [facility] Potassium [Moles/Vol] 4.1 mmol/L Normal 3.5 - 5.3 mmol/L [facility]; [facility], [facility] Protein [Mass/Vol] 6.8 g/dL Normal 6.1 - 8.1 g/dL [facility]; [facility], [facility] Sodium [Moles/Vol] 138 mmol/L Normal 135 - 146 mmol/L [facility], [facility].; [facility], [facility] TSH Qn 1.71 m[IU]/L Normal [facility].; [place] [facility] Urea nitrogen [Mass/Vol] 12 mg/dL Normal 7 - 25 mg/d L [place] [email or web address] [place] [employer], [facility] - Hematology and Cell countson 06-12-2024 Basophils (Bld) [#/Vol] 0.038 10*3/uL Normal 0 - 200 {cells/uL} [facility].; [place] [employer], [employer] Basophils/100 WBC (Bld) 0.4 % Normal [facility].; [place] [employer], [facility] Eosinophils (Bld) [#/Vol] 0.094 10*3/uL Normal 15 - 500 {cells/uL} [place] [facility].; [place] [employer], [facility] Eosinophils/100 WBC (Bld) 1.0 % Normal [place] [employer] [facility].; [place] [employer], [employer] Erythrocyte distribution width (RBC) [Ratio] 12.0 % Normal 11.0 - 15.0 % [place] [employer] [facility].; [place] [employer], [employer] Hematocrit (Bld) [Volume fraction] 41.9 % Normal 35.0 - 45.0 % [place] [email or web address].; [place] [employer], [employer] Hemoglobin (Bld) [Mass/Vol] 14.1 g/dL Normal 11.7 - 15.5 g/dL [facility].; [place] [employer], [facility] Lymphocytes (Bld) [#/Vol] 1.645 10*3/uL Normal 850 - 3900 {cells/uL} [place] [email or web address].; [place] [email or web address] Lymphocytes/100 WBC (Bld) 17.5 % Normal [place] [facility].; [place] [employer], [employer]. MCH (RBC) [Entitic mass] 30.8 pg Normal 27.0 - 33.0 pg [place] [email or web address].; [employer], [employer]. MCHC (RBC) [Mass/Vol] 33.7 g/dL Normal 32.0 - 36.0 g/dL [place] [employer], [employer].; [place] [employer], [employer]. MCV (RBC) [Entitic vol] 91.5 fL Normal 80.0 - 100.0 fL [employer] [place] [email or web address]. Monocytes (Bld) [#/Vol] 0.752 10*3/uL Normal 200 - 950 {cells/uL} [facility] [employer] [facility].; [place] [email or web address]. Monocytes/100 WBC (Bld) 8.0 % Normal [facility].; [place] [email or web address]. Neutrophils (Bld) [#/Vol] 6.871 10*3/uL Normal 1500 - 7800 {cells/uL} [place] [facility].; [place] [email or web address]. Neutrophils/100 WBC (Bld) 73.1 % Normal [place] [facility].; [place] [email or web address]. Platelet mean volume (Bld) [Entitic vol] 9.4 fL Normal 7.5 - 12.[address] [facility] [employer].; [place] [employer], [employer]. Platelets (Bld) [#/Vol] 401 10*3/uL Abnormal 140 - 400 [facility].; [place] [email or web address]. RBC (Bld) [#/Vol] 4.58 10*6/uL Normal 3.80 - 5.1 0 {Million/uL} [place] [email or web address].; [employer], [employer]. WBC (Bld) [#/Vol] 9.4 10*3/uL Normal 3.8 - 10.8 [place] [email or web address].; [employer]. No Panel Informationon 06-12 BUN/CREATININE RATIO SEE NOTE: Normal 6 - 22 [facility].; [place] [email or web address]. GLOBULIN 2.2 Normal 1.9 - 3.7 [facility] [employer].; [employer]. [place] [facility] 03-24-2024 Indication Dyspareunia Impression Normal [...] Read By: Maia Ludwig M.D. MATERNAL MEDICINE [facility] 03-20-2024 Radiology Study observation (narrative) [facility] BACTERIAL VAGINOSIS NAATon 0 03-11-2024 Lactobacillus crispatus+gasseri+hahn ii + Gardnerella vaginalis + Atopobium vaginae rRNA ANIRUDH+probe Ql (Vag fld) Negative Normal Negative for bacterial vaginosis [facility] Comment on above: Order Comment: Speci men Type: SWAB Ordering Facility: [facility] Address: [address] [place] [address] Performed By: #### B VAMP, CVTV #### [facility] CLIA [id number] [address] [place] [address] [place] C. trachomatis+N. gonorrhoea e DNA ANIRUDH+probe Ql (Unsp spec)on 03-11-2024 C. trachomatis rRNA ANIRUDH+probe Ql (Unsp spec) Negative Normal Negative for Chlamydia trachomatis by amplificaton [facility] Comment on above: Order Comment: Speci men Type: SWAB Ordering Facility: [facility] Address: [address] [place] [address] Performed By: #### 3 6902-5 #### [facility] CLIA [id number] [address] [place] [address] [place] N. gonorrhoeae rRNA ANIRUDH+probe Ql (Unsp spec) Negative Normal Negative for Neisseria gonorrhoeae by amplification [facility] Comment on above: Order Comment: Speci men Type: SWAB Ordering Facility: [facility] Address: [address] [place] [address] Performed By: #### 3 6902-5 #### [facility] CLIA [id number] [address] [place] [address] [place] FLORIDALMA/TRICHOMONAS NAATon 0 03-11-2024 C. glabrata RNA ANIRUDH+probe Ql (Vag fld) Negative Normal Negative for [place] glabrata [facility] Comment on above: Order Comment: Speci men Type: SWAB Ordering Facility: [facility] Address: [address] [place] [address] Performed By: #### B VAMP, CVTV #### [facility] CLIA [id number] [address] [place] [address] [place] Floridalma sp DNA ANIRUDH+probe Ql (Vag fld) Negative Normal Negative for Floridalma species [facility] Comment on above: Order Comment: Speci men Type: SWAB Ordering Facility: [facility] Address: [address] [place] [address] Performed By: #### B VAMP, CVTV #### [facility] CLIA [id number] [address] [place] [address] [place] T. vaginalis DNA ANIRUDH+probe Ql (Unsp spec) Negative Normal Negative for Trichomonas vaginalis by amplification [facility] Comment on above: Order Comment: Speci men Type: SWAB Ordering Facility: [facility] Address: [address] [place] [address] Performed By: #### B VAMP, CVTV #### [facility] CLIA [id number] [address] [place] [address] [place] CNOVon 03-11-2024 CNOV Office Visit (OBGYWM) -------- CHERY MCKEON ([id number]) 1 F Date Time Provider Department 03/11/24 7:45 AM ELIJAH LYMAN During your visit today, we recorded the following information about you: Blood pressure Weight Last Period 122/80 71.2 kg 02/28/24 Elijah Lyman, MINOR.FORESTRY BIOLOGY SPECIALIST 03/11/2024 8:17 AM Signed Reading Efficiency Course Director offered: Patient declines. Chery Mckeon is a [...] OB History No obstetric history on file. 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 + dysuria after intercourse Expanded ROS: SAUSAGE SMOKER: + dyspareunia Allergies and current medication updated:Yes EXAM: BP 122/80 Wt 157 lb (71.2kg) LMP 02/28/2024 GENERAL: pleasant, female in no apparent distress HEENT: Normocephalic, atraumatic, mucus membranes moist, and no lesions CHEST: Normal inspiratory effort PELVIC: + erythema to bilateral clitoris, normal Bartholin's glands, urethra, [place]'s glands, no vulvar lesions, no cervical lesions, [...] Date Reviewed: 03/11/2024 Reviewed by: Elijah Lyman APRN.FORESTRY BIOLOGY SPECIALIST - Fully Assessed Primary Visit Diagnosis:Dyspareu garry in female [N94.10] Other Visit Diagnoses:Screen for STD (sexually transmitted disease) [Z11.3] Encounter for screening for malignant neoplasm of cervix [Z12.4] Order(s):PAP TEST [IIO3960] Order #: [id number]. #:[id number] GONORRHEA/CHLAMYDI A NAAT [SQGCCT] Order #: [id number]. #:[id number] FLORIDALMA/TRICHOMONA S NAAT [SQCVTV] Order #: [id number]. #:[id number] BACTERIAL VAGINOSIS NAAT [SQBVAMP] Order #: [id number]. #:[id number] PELVIC US WHI [6024805] Order #: [id number]: 1 FUTURE Prescriptions as of 03/11/2024 - levothyroxine 100 mcg cap - norgestimate 0.25 mg-ethinyl estradiol 35 mcg (STACI) 0.25-35 mg-mcg per tablet Problem List As Of Date: 03/11/2024 (None) Encounter Status:Closed by ELIJAH LYMAN on 03/11/24 Normal [facility] PAP TESTon 03-11-2024 ADEQUACY Normal [facility] Comment on above: Order Comment: Speci men Type: FLUID SPECIMEN Ordering Facility: [facility] Address: [address] [place] [address] Result Comment: Sati sfactory for interpretation. No endocervical component Performed By: #### L [id number] #### [facility] CLIA [id number] [address] [place] [address] STATES OF [facility] CLIA [id number] [address] [place] [address] [place] CASE REPORT Normal [facility] Comment on above: Order Comment: Speci men Type: FLUID SPECIMEN Ordering Facility: [facility] Address: [address] [place] [address] Result Comment: Gyne cologic Cytology Report Case: [id number] Authorizing Provider: Elijah Lyman APRN.FORESTRY BIOLOGY SPECIALIST Collected: 03/11/2024 08:10 AM Ordering Location: OB/Gynecology Received: 03/11/2024 12:09 PM First Screen: Gladkaya, Shireen, CT, ASCP Specimen: Pap Test, ThinPrep, Cervix Performed By: #### L [id number] #### [facility] CLIA [id number] [address] [place] [address] [place] [facility] CLIA [id number] [address] [place] [address] [place] CLINICAL HISTORY, CYTOLOGY, SAUSAGE SMOKER Routine Exam Normal [facility] Comment on above: Order Comment: Speci men Type: FLUID SPECIMEN Ordering Facility: [facility] Address: [address] [place] [address] Performed By: #### L [id number] #### [facility] CLIA [id number] [address] [place] [address] [place] [facility] CLIA [id number] [address] [place] [address] [place] FIN[facility]FORMING LAB Normal [facility] Comment on above: Order Comment: Speci men Type: FLUID SPECIMEN Ordering Facility: [facility] Address: [address] [place] [address] Result Comment: Tech nical component, poultry raiser screening performed at [facility], [address] [place] [address] CLIA# [id number] Diagnostic interpretation performed at [facility], [address] [place] [address] CLIA# [id number] Fan Runner: Fannie Dickerson M.D. Performed By: #### L [id number] #### [facility] CLIA [id number] [address] [place] [address] [place] [facility] CLIA [id number] [address] [place] [address] [place] HPV REFLEX HPV if Atypical Normal [facility] Comment on above: Order Comment: Speci men Type: FLUID SPECIMEN Ordering Facility: [facility] Address: [address] [place] [address] Performed By: #### L [id number] #### [facility] CLIA [id number] [address] [place] [address] [place] [facility] CLIA [id number] [address] [place] [address] [place] INTERPRETATION, CYTOLOGY, SAUSAGE SMOKER Normal [facility] Comment on above: Order Comment: Speci men Type: FLUID SPECIMEN Ordering Facility: [facility] Address: [address] [place] [address] Result Comment: Nega tive for intraepithelial lesion or malignancy. Performed By: #### L [id number] #### [facility] CLIA [id number] [address] [place] [address] [place] [facility] CLIA [id number] [address] [place] [address] [place] LMP 02/28/2024 Normal [facility] Comment on above: Order Comment: Speci men Type: FLUID SPECIMEN Ordering Facility: [facility] Address: [address] [place] [address] Performed By: #### L [id number] #### [facility] CLIA [id number] [address] [place] [address] [place] [facility] CLIA [id number] [address] [place] [address] [place] PAP DISCLAIMER COMMENT The Pap Smear is a screening test for cervical cancer. False negative results occur with all screening tests, emphasizing the need for rescreening at recommended intervals, and clinical correlation. Normal [facility] Comment on above: Order Comment: Speci men Type: FLUID SPECIMEN Ordering Facility: [facility] Address: [address] [place] [address] Performed By: #### L [id number] #### [facility] CLIA [id number] [address] [place] [address] [place] [facility] CLIA [id number] [address] [place] [address] [place] PAP CEMENT MIXER DRIVER COMMENT This specimen has been analyzed by the ThinPrep Imaging System, an automated imaging and review system, which assists the laboratory in evaluating cells on ThinPrep Pap tests. Following automated imaging, selected umanzor from every slide are reviewed by a poultry raiser. Normal [facility] Comment on above: Order Comment: Speci men Type: FLUID SPECIMEN Ordering Facility: [facility] Address: [address] [place] [address] Performed By: #### L [id number] #### [facility] CLIA [id number] [address] [place] [address] [place] [facility] CLIA [id number] [address] [facility] [place] [id number] [address] [facility] [place] TSHon 01-04-2024 TSH Qn 1.45 m[IU]/L Normal [facility] Comment on above: Result Comment: Jose douglas Range > or = 20 Years 0.40-4.50 Ranges First trimester 0.26-2.66 Second trimester 0.55-2.73 Third trimester 0.43-2.91 Performed By: #### 8 99 #### [facility] [address] [facility], [address] [place] [address] Theatrical Dresser: Jimbo Sal MD Laboratory - Chemistry and C hemistry - challengeon 01-03-2024 TSH Qn 1.45 m[IU]/L Normal [employer], [employer].; [facility]. Laboratory - Chemistry and C hemistry - challengeon 02-26-2023 TSH Qn 0.98 m[IU]/L Normal [employer].; [facility]. Laboratory - Chemistry and C hemistry - challengeon 11-28-2022 Free T4 [Mass/Vol] 1.3 ng/dL Normal 0.8 - 1.8 ng/dL [employer].; [employer], [employer]. Work Phone: Laboratory - Hematology and Cell countson 11-28-2022 Basophils (Bld) [#/Vol] 0.048 10*3/uL Normal 0 - 200 {cells/uL} [facility].; [facility]. Basophils/100 WBC (Bld) 0.7 % Normal [employer].; [employer], [employer]. Eosinophils (Bld) [#/Vol] 0.258 10*3/uL Normal 15 - 500 {cells/uL} [facility].; [employer], [employer]. Eosinophils/100 WBC (Bld) 3.8 % Normal [facility].; [employer], [employer]. Erythrocyte distribution width (RBC) [Ratio] 12.3 % Normal 11.0 - 15.0 % [employer], Inc.; [place] [employer], [employer] Hematocrit (Bld) [Volume fraction] 42.7 % Normal 35.0 - 45.0 % [facility], Inc.; [facility], [facility] Hemoglobin (Bld) [Mass/Vol] 14.3 g/dL Normal 11.7 - 15.5 g/dL [facility], Inc.; [place] [employer] Lymphocytes (Bld) [#/Vol] 1.632 10*3/uL Normal 850 - 3900 {cells/uL} [facility], Inc.; [place] [employer], [employer] Lymphocytes/100 WBC (Bld) 24.0 % Normal [facility] [employer], [facility].; [place] [employer], [employer] MCH (RBC) [Entitic mass] 30.6 pg Normal 27.0 - 33.0 pg [facility], [facility].; [place] [employer], [employer] MCHC (RBC) [Mass/Vol] 33.5 g/dL Normal 32.0 - 36.0 g/dL [facility], [facility].; [place] [employer] MCV (RBC) [Entitic vol] 91.2 fL Normal 80.0 - 100.0 fL [place] [employer], [facility].; [place] [employer] [employer] Monocytes (Bld) [#/Vol] 0.632 10*3/uL Normal 200 - 950 {cells/uL} [facility] [employer], Inc.; [place] [employer], [employer] Monocytes/100 WBC (Bld) 9.3 % Normal [facility], [facility].; [facility] [employer], [employer] Neutrophils (Bld) [#/Vol] 4.23 10*3/uL Normal 1500 - 7800 {cells/uL} [place] [employer], [employer].; [place] [employer] [employer] Neutrophils/100 WBC (Bld) 62.2 % Normal [place] [employer], [facility].; [place] [employer], [employer] Platelet mean volume (Bld) [Entitic vol] 9.5 fL Normal 7.5 - 12.[address] [facility], Inc.; [place] [employer], [employer] Platelets (Bld) [#/Vol] 304 10*3/uL Normal 140 - 400 [place] [email or web address].; [place] [employer], [employer] RBC (Bld) [#/Vol] 4.68 10*6/uL Normal 3.80 - 5.1 0 {Million/uL} [facility]; [facility]. WBC (Bld) [#/Vol] 6.8 10*3/uL Normal 3.8 - 10.8 [facility].; [place] [email or web address]. No Panel Informationon 11-28 [id number] See Below Normal [facility]; [place] [employer] [facility] Work Phone: CLIENT CONTACT: LLOYD OCHOA Normal [facility]; [place] [employer] [facility] Work Phone: TEST CODE: [id number] Normal [facility]; [facility] Work Phone: TEST NAME: THYROID PEROXIDASE Normal [facility]; [place] [employer] [facility] Work Phone: THYROID PEROXIDASE ANTIBODIES 30 {IU/mL} Abnormal [facility]; [place] [email or web address] Work Phone: TSH W/REFLEX TO FT4 4.81 {mIU/L} Abnormal [facility]; [facility] Laboratory - Chemistry and C hemistry - challengeon 12-08-2021 CRP [Mass/Vol] 1.8 mg/L Normal [facility]; [place] [email or web address] No Panel Informationon 12-08 [id number] SEE NOTE Normal [facility]; [place] [email or web address]. [id number] SEE NOTE Normal [facility].; [employer]. CHLAMYDIA TRACHOMATIS RNA, TMA, UROGENITAL Not detected Normal [facility]; [employer] CLINICAL INFORMATION: SEE NOTE Normal [facility]; [employer]. SECURITY GUARD SUPERVISOR: SEE NOTE Normal [facility]; [employer] HEPATITIS B SURFACE ANTIGEN Non-Reactive Normal [facility]; [place] [email or web address]. HEPATITIS C ANTIBODY Non-Reactive Normal [facility].; [facility]. HIV AG/AB, 4TH GEN Non-Reactive Normal [facility]; [facility]. INDEX 0.01 Normal [facility].; [facility]. INTERPRETATION/RESULT: SEE NOTE Normal [facility].; [facility]. LMP: SEE NOTE Normal [facility]; [facility]. NEISSERIA GONORRHOEAE RNA, TMA, UROGENITAL Not detected Normal [facility].; [place] [employer] [facility] PREV. BX: SEE NOTE Normal [facility].; [facility]. PREV. PAP: SEE NOTE Normal [facility].; [facility]. REVIEW SECURITY GUARD SUPERVISOR: SEE NOTE Normal [facility]; [facility] [employer] RHEUMATOID FACTOR <14 Normal [facility].; [place] [email or web address]. RPR (DX) W/REFL TITER AND CONFIRMATORY TESTING Non-Reactive Normal [facility].; [place] [facility]. SED RATE BY MODIFIED WESTERGREN 2 mm/h Normal [facility].; [facility]. SOURCE: SEE NOTE Normal [facility].; [facility]. STATEMENT OF ADEQUACY: SEE NOTE Normal [facility].; [facility] [employer]. Laboratory - Microbiology an d Antimicrobial susceptibilityon 02-17-2021 S. pyogenes Ag EIA Ql (Throat) Negative Normal [facility].; [employer]. Laboratory - Chemistry and C hemistry - challengeon 06-08-2019 Bilirubin Ql (U) Negative Normal [facility].; [employer], [employer]. Ketones Ql (U) Negative Normal [facility].; [place] [employer], [employer]. pH (U) 5.5 [pH] Normal [facility].; [place] [email or web address]. Specific gravity (U) [Rel density] 1.025 Normal [facility].; [place] [employer], [employer]. Urobilinogen Qn (U) 0.2 mg/dL Normal [email or web address] [email or web address].; [facility]. Laboratory - Hematology and Cell countson 06-08-2019 Hemoglobin Ql (U) Negative Normal [facility].; [facility]. Laboratory - Microbiology an d Antimicrobial susceptibilityon 06-08-2019 Bacteria identified Cx Nom (U) SEE NOTE Normal [facility].; [facility]. Laboratory - Specimen inform ationon 06-08-2019 Appearance (U) clear Normal [employer].; [facility]. Color (U) yellow Normal [facility].; [employer] Specimen source Nom (Unsp spec) URINE-NOT GIVEN Normal [employer]; [facility]. Laboratory - Urinalysison Glucose Test strip (U) [Mass/Vol] Negative Normal [facility].; [facility]. Leukocyte esterase Test strip Ql (U) trace Normal [facility].; [facility]. Nitrite Ql (U) Negative Normal [employer].; [facility]. Protein Ql (U) trace Normal [employer].; [facility] [employer]. Final Surgical Pathology Rep [facility] 12-24-2018 Final Surgical Pathology Report . Pathology Reports Accession: Collected Date/Time: Received Date/Time: Pathologist: [id number] 12/18/2018 13:58 EDT 12/23/2018 13:58 EDT MD ANA M VELASQUEZ Final Surgical Pathology Report DIAGNOSIS: GALLBLADDER, CHOLECYSTECTOMY- - RARE FOCI OF CHRONIC INFLAMMATION. - CLINICALLY REMOVED FOR BILIARY DYSKINESIA. COMMENT: [facility] [id number] CLINICAL INFORMATION: BILIARY DYSKINESIA SPECIMEN: A GALLBLADDER [...] thickness. RS -1 Dictated by Melissa GOMEZ ([facility]) MICROSCOPIC DESCRIPTION: Slides reviewed. Electronically Signed by Pathology Report verified by [facility] Electronically signed by ANA M VELASQUEZ MD Sign out Date: 12/24/2018 16:14 Performing Lab: [facility], [address] [place] [id number] [place] [address] ([place]) Comment on above: Performed By: #### S PFR #### [address] [address] OPERATIVE PROCEDURESon 12-23 OPERATIVE PROCEDURES [facility] OPERATIVE REPORT NAME ACCOUNT SEX AGE ADMIT DISCHARGE PT MED. RECORD# NUMBER DATE DATE TYPE AMANDEEP [id number] F 18 12/18/18 12/18/18 2 CHERY Belle [id number] ROOM: [facility] DATE OF : 2000 DICTATING PHYSICIAN: Natalia Liang DATE OF SURGERY: December 18, 2018 SURGEON: Natalia Liang MD DIE REPAIRER STAMPING: Maida Alaniz CSA ANESTHESIOLOGIST: ANESTHETIC: General endotracheal [...] as tolerated. Medications: The patient was given [place] as needed for pain, Colace as needed [...] Natalia Liang MD 12/20/18 10:39 JOB #: [id number] Transcribed By: maycol 12/20/18 14:37 Electronically signed by: E-SIGN DR. LIANG 12/23/18 09:07 Page 2 of 2 AMANDEEPKEVIN ELLERJAYLEEN Belle Operative Report Normal [facility] URINEon 12-18-2018 Beta HCG ( test) Ql (U) Negative Normal NEGATIVE [facility] Comment on above: Performed By: #### 2 [id number] #### [facility],[address] [place] [address] EXTERNAL QC DONE? YES Normal [facility] Comment on above: Performed By: #### 2 [id number] #### [facility],[address] [place] [address] INTERNAL QC PASS Normal [facility] Comment on above: Performed By: #### 2 [id number] #### [facility],[address] [place] [address] NM HIDA SCANon 11-14-2018 NM HIDA SCAN [place] [address] Patient: CHERY BERNSTEIN. Phone#: : 2000 Age: 17 Gender: F Pt. Type: Out Account: [id number] Location: Ordering: ANNA MARIE [facility] Exam Date: 11/14/2018/8:16 Family Phys: ÁNGELA FERMIN Charge Code: [id number] Physician: [place] Order #: [id number] DLP Dose#: PROCEDURE: HIDA SCAN COMPARISON: None. [...] Vargas MD on 11/14/2018 at 15:05 Normal [facility] US RUQ (GB/PANCREAS)on 11-14 RUQ (GB/PANCREAS) [place] [address] Patient: CHERY BERNSTEIN Phone#: : 2000 Age: 17 Gender: F Pt. Type: Out Account: [id number] Location: Ordering: [facility] Exam Date: 11/14/2018/9:21 Family Phys: ÁNGELA DECATUR Charge Code: [id number] Physician: [place] Order #: [id number] [facility] Dose#: PROCEDURE: RUQ (GB) ULTRASOUND COMPARISON: None. [...] VARGAS MD ON 11/14/2018 AT 12:35 Normal [facility] Laboratory - Chemistry and C hemistry - challengeon 10-30-2018 Albumin [Mass/Vol] 5.1 g/dL Normal 3.6 - 5.1 g/dL [facility].; [employer], [employer]. Albumin/Globulin [Mass ratio] 2.2 {ratio} Normal 1.0 - 2.5 [facility].; [employer], [employer]. ALP [Catalytic activity/Vol] 50 U/L Normal 47 - 176 U/L [place] [employer] [facility].; [employer], [employer]. ALT [Catalytic activity/Vol] 20 U/L Normal 5 - 32 U/L [place] [email or web address].; [employer], [employer]. AST [Catalytic activity/Vol] 25 U/L Normal 12 - 32 U/L [place] [email or web address].; [employer], [employer]. Bilirubin [Mass/Vol] 0.6 mg/dL Normal 0.2 - 1.1 mg/dL [place] [employer] [facility].; [employer], [employer]. Calcium [Mass/Vol] 9.8 mg/dL Normal 8.9 - 10. 4 mg/dL [place] [employer], [employer].; [employer], [employer]. Chloride [Moles/Vol] 107 mmol/L Normal 98 - 110 mmol/L [place] [facility].; [employer], [employer]. CO2 [Moles/Vol] 22 mmol/L Normal 20 - 32 mmol/L [facility] [employer] [facility], [facility].; [employer], [employer]. Creatinine [Mass/Vol] 0.61 mg/dL Normal 0.50 - 1.00 mg/dL [place] [employer], [employer].; [employer] GFR/1.73 sq M.predicted among blacks MDRD (S/P/Bld) [Vol rate/Area] SEE NOTE Normal [place] [employer], [employer].; [employer], [employer] GFR/1.73 sq M.predicted MDRD (S/P/Bld) [Vol rate/Area] SEE NOTE Normal [facility].; [facility], [facility] Globulin (S) [Mass/Vol] 2.3 g/dL Normal 2.0 - 3.8 g/ dL [facility], [facility].; [facility], [facility] Glucose [Mass/Vol] 74 mg/dL Normal 65 - 99 mg/dL [facility].; [facility], [facility] Potassium [Moles/Vol] 4.4 mmol/L Normal 3.8 - 5.1 mmol/L [facility].; [facility], [facility] Protein [Mass/Vol] 7.4 g/dL Normal 6.3 - 8.2 g/dL [facility].; [facility], [facility] Sodium [Moles/Vol] 138 mmol/L Normal 135 - 146 mmol/L [facility], [facility].; [facility], [facility] Urea nitrogen [Mass/Vol] 13 mg/dL Normal 7 - 20 mg/d L [facility]; [facility], [facility] Urea nitrogen/Creatinine [Mass ratio] 20.8 mg/mg Normal [facility], [facility]; [facility], [facility] Laboratory - Hematology and Cell countson 06-23-2018 Basophils/100 WBC (Bld) 0.3 % Normal 0 - 1 % H [facility].; [facility], [facility] Eosinophils/100 WBC (Bld) 1.6 % Normal 0 - 5 % [facility]; [facility], [facility] Erythrocyte distribution width (RBC) [Ratio] 12.3 % Normal 11.6 - 14.6 % [facility].; [facility], [facility] Hematocrit (Bld) [Volume fraction] 38.1 % Normal 37 - 47 % [facility], [facility].; [facility], [facility] Hemoglobin (Bld) [Mass/Vol] 13.2 g/dL Normal 12.0 - 15.0 g/dL [facility], [facility].; [facility], [facility] Lymphocytes/100 WBC (Bld) 22.0 % Normal 19 - 41 % [facility].; [employer]. MCH (RBC) [Entitic mass] 30.3 pg Normal 27.0 - 32.0 pg [facility].; [place] [employer], [employer]. MCV (RBC) [Entitic vol] 87.4 fL Normal 81 - 99 fL [facility], [facility].; [place] [employer], [employer] Monocytes (Bld) [#/Vol] Negative Normal [facility].; [facility] [employer] Monocytes/100 WBC (Bld) 10.6 % Abnormal 0 - 10 % [facility].; [place] [employer], [employer] Neutrophils/100 WBC (Bld) 65.4 % Normal 47 - 70 % [facility].; [place] [email or web address]. Platelet mean volume (Bld) [Entitic vol] 8.8 fL Normal 6.2 - 12.[address] [facility].; [place] [employer], [employer]. Platelets (Bld) [#/Vol] 256 10*3/uL Normal 150 - 450 K /mm3 [facility].; [place] [email or web address]. RBC (Bld) [#/Vol] 4.36 10*6/uL Normal 4.1 - 4.8 {M/mm3} [facility].; [place] [employer], [employer]. WBC (Bld) [#/Vol] 6.7 10*3/uL Normal 4.4 - 11.0 K/mm3 [facility].; [place] [email or web address]. No Panel Informationon 06-23 Absolute Lymph 1.47 {X10_3/ul} Normal 0.83 - 4.5 1 {X10_3/ul} [facility] [facility].; [place] [employer], [employer]. Absolute Neut 4.4 {X10_3/uL} Normal 2.0 - 7.7 {X10_3/uL} [facility] [employer].; [employer] IM GRAN % 0.100 % Normal 0.0 - 0.9 % [facility] [employer].; [employer] MCHC 34.6 {g/gl} Normal 32 - 36 {g/gl} [facility].; [facility]. RDW SD 39.4 fL Normal 35.1 - 43.9 fL [facility].; [facility] Laboratory - Chemistry and C hemistry - challengeon 01-28-2018 Free T3 [Mass/Vol] T3, FREE Normal [facility]; [facility] Free T4 [Mass/Vol] 0.97 ng/dL Normal 0.61 - 1. 12 ng/dL [facility].; [facility] TSH Qn 2.87 m[IU]/L Normal 0.34 - 5.60 {uIU/ml} [facility].; [facility] Laboratory - Microbiology an d Antimicrobial susceptibilityon 08-01-2012 S. pyogenes Ag EIA Ql (Throat) Negative Normal [facility]; [facility] Laboratory - Microbiology an d Antimicrobial susceptibilityon 07-26-2011 S. pyogenes Ag EIA Ql (Throat) Negative Normal [facility].; [facility] Laboratory - Microbiology an d Antimicrobial susceptibilityon 10-09-2010 S. pyogenes Ag EIA Ql (Throat) Negative Normal [facility].; [facility]. Vital Signs Date Time Vital Sign Value Performing Clinician Facility 04-07-2025 12:52-0400 Body height 165.1 cm Anna Marie GOMEZ Work Phone: [facility] 04-07-2025 12:52-0400 Body mass index (BMI) [Ratio] 29.3 kg/m2 Anna Marie GOMEZ Work Phone: [facility] 04-07-2025 12:52-0400 Body weight 79.91 kg Anna Marie GOMEZ Work Phone: [facility] 04-07-2025 12:52-0400 Diastolic blood pressure 80 mm[Hg] Anna Marie Sales PA Work Phone: [facility] 04-07-2025 12:52-0400 Systolic blood pressure 117 mm[Hg] Anna Marie GOMEZ Work Phone: [facility] 03-31-2025 09:03-0400 Body height 165.1 cm Anna Marie Sales PA Work Phone: [facility] 03-31-2025 09:01-0400 Body mass index (BMI) [Ratio] 29.8 kg/m2 Anna Marie Sales PA Work Phone: [facility] 03-31-2025 09:01-0400 Body weight 81.33 kg Anna Marie Sales PA Work Phone: [facility] 03-11-2025 15:18-0400 Body height 165.1 cm Anna Marie Sales PA Work Phone: [facility] 03-11-2025 15:12-0400 Body mass index (BMI) [Ratio] 29.1 kg/m2 Anna Marie Sales PA Work Phone: [facility] 03-11-2025 15:12-0400 Body weight 79.46 kg Anna Marie Sales PA Work Phone: [facility] 03-11-2025 15:12-0400 Diastolic blood pressure 86 mm[Hg] Anna Marie Sales PA Work Phone: 5(575)009-566415 [place] [address] 03-11-2025 15:12-0400 Systolic blood pressure 135 mm[Hg] Anna Marie Sales PA Work Phone: [facility] 03-03-2025 19:21-0400 Body temperature 97.5 [degF] Anna Marie Sales PA Work Phone: [facility] 03-03-2025 19:21-0400 Diastolic blood pressure 80 mm[Hg] Anna Marie Sales PA Work Phone: [facility] 03-03-2025 19:21-0400 Heart rate 71 /min Anna Marie Sales PA Work Phone: [facility] 03-03-2025 19:21-0400 SaO2% (BldA) [Mass fraction] 100 % Anna Marie Sales PA Work Phone: [facility] 03-03-2025 19:21-0400 Systolic blood pressure 133 mm[Hg] Anna Marie Sales PA Work Phone: [facility] 03-03-2025 18:25-0400 Body height 165.1 cm Anna Marie Sales PA Work Phone: [facility] 03-03-2025 18:25-0400 Body mass index (BMI) [Ratio] 28.8 kg/m2 Anna Marie Sales PA Work Phone: [facility] 03-03-2025 18:25-0400 Body weight 78.47 kg Anna Marie Sales PA Work Phone: 3(827)207-234815 [place] [address] 02-09-2025 10:58-0400 Body height 165.1 cm Anna Marie Sales PA Work Phone: 4(634)079-563415 [place] [address] 02-09-2025 10:58-0400 Body mass index (BMI) [Ratio] 28.8 kg/m2 Anna Marie Sales PA Work Phone: 6(734)647-891015 [place] [address] 02-09-2025 10:58-0400 Body weight 78.52 kg Anna Marie Sales PA Work Phone: 2(094)749-288815 [place] [address] 02-09-2025 10:58-0400 Diastolic blood pressure 83 mm[Hg] Anna Marie Sales PA Work Phone: [facility] 02-09-2025 10:58-0400 Systolic blood pressure 129 mm[Hg] Anna Marie Sales PA Work Phone: [facility] 01-15-2025 14:30-0400 Body height 165.1 cm Anna Marie Sales PA Work Phone: [facility] 01-15-2025 14:30-0400 Body mass index (BMI) [Ratio] 28.5 kg/m2 Anna Marie Sales PA Work Phone: [facility] 01-15-2025 14:30-0400 Body weight 77.62 kg Anna Marie Sales PA Work Phone: [facility] 01-15-2025 14:30-0400 Diastolic blood pressure 85 mm[Hg] Anna Marie Sales PA Work Phone: [facility] 01-15-2025 14:30-0400 Systolic blood pressure 124 mm[Hg] Anna Marie Sales PA Work Phone: 6(962)058-082115 [place] [address] 01-06-2025 13:56-0400 Diastolic blood pressure 67 mm[Hg] Anna Marie Sales PA Work Phone: 8(762)610-753715 [place] [address] 01-06-2025 13:56-0400 Heart rate 74 /min Anna Marie Sales PA Work Phone: 4(997)531-154015 [place] [address] 01-06-2025 13:56-0400 Respiratory rate 16 /min Anna Marie Sales PA Work Phone: 9(849)282-852315 [place] [address] 01-06-2025 13:56-0400 Systolic blood pressure 122 mm[Hg] Anna Marie Sales PA Work Phone: 2(527)041-122895 [place] [address] 01-06-2025 12:36-0400 Body height 165.1 cm Anna Marie Sales PA Work Phone: 1(410)330-302728 [address] 01-06-2025 12:36-0400 Body mass index (BMI) [Ratio] 27.9 kg/m2 Anna Marie Sales PA Work Phone: 3(139)182-168115 [place] [address] 01-06-2025 12:36-0400 Body temperature 97.1 [degF] Anna Marie Sales PA Work Phone: 8(384)694-279515 [place] [address] 01-06-2025 12:36-0400 Body weight 76.2 kg Anna Marie Sales PA Work Phone: 4(429)763-135615 [place] [address] 01-06-2025 12:36-0400 SaO2% (BldA) [Mass fraction] 99 % Anna Marie Sales PA Work Phone: 1(686)850-682515 [place] [address] 12-23-2024 13:20-0400 Body temperature 96.6 [degF] Anna Marie Sales PA Work Phone: 6(949)778-297315 [place] [address] 12-23-2024 13:20-0400 Diastolic blood pressure 65 mm[Hg] Anna Marie Sales PA Work Phone: 3(594)363-363115 [place] [address] 12-23-2024 13:20-0400 Heart rate 73 /min Anna Marie Sales PA Work Phone: [facility] 12-23-2024 13:20-0400 Respiratory rate 16 /min Anna Marie Sales PA Work Phone: [facility] 12-23-2024 13:20-0400 Systolic blood pressure 125 mm[Hg] Anna Marie Sales PA Work Phone: [facility] 12-23-2024 12:09-0400 Body height 165.1 cm Anna Marie Sales PA Work Phone: [facility] 12-23-2024 12:09-0400 Body mass index (BMI) [Ratio] 27.4 kg/m2 Anna Marie Sales PA Work Phone: [facility] 12-23-2024 12:09-0400 Body weight 74.84 kg Anna Marie Sales PA Work Phone: [facility] 12-23-2024 12:09-0400 SaO2% (BldA) [Mass fraction] 98 % Anna Marie Sales PA Work Phone: [facility] 12-21-2024 15:20-0400 Body height 165.1 cm Anna Marie Sales PA Work Phone: [facility] 12-21-2024 15:20-0400 Body mass index (BMI) [Ratio] 27.4 kg/m2 Anna Marie Sales PA Work Phone: [facility] 12-21-2024 15:20-0400 Body weight 74.84 kg Anna Marie Sales PA Work Phone: [facility] 12-21-2024 15:20-0400 Diastolic blood pressure 86 mm[Hg] Anna Marie Sales PA Work Phone: [facility] 12-21-2024 15:20-0400 Systolic blood pressure 126 mm[Hg] Anna Marie Sales PA Work Phone: [facility] 12-16-2024 10:04-0400 Body height 167.64 cm Lloyd House LPN [facility], [facility].; [facility]. 12-16-2024 10:04-0400 Body mass index (BMI) [Ratio] 27.12 kg/m2 Lloyd Balabach [facility].; [facility], [facility]. 12-16-2024 10:04-0400 Body surface area Derived from formula 1.86 m2 Lloyd Ramirez Lacy REINOSO [facility].; [facility]. 12-16-2024 10:04-0400 Body temperature 99.2 [degF] Lloyd Balabach [facility].; [place] [employer] [facility]. Comment on above: Method: Tympanic 12-16-2024 10:040400 Body weight 76.2 kg Lloyd Ramirez Lacy REINOSO [facility].; [place] [employer] [facility]. 12-16-2024 10:04-0400 Diastolic blood pressure 88 mm[Hg] Lloyd Ramirez Lacy [facility].; [place] [employer] [facility]. Comment on above: Patient Position: Sitting; Cuff Location : Right Arm; Cuff Size: Standard 12-16-2024 10:04-0400 Heart rate 92 /min Lloyd Balabach [facility].; [place] [employer] [facility]. Comment on above: Pattern: Regular 12-16-2024 10:04-0400 Systolic blood pressure 130 mm[Hg] Lloyd Ramirez Lacy [facility].; [place] [employer] [facility]. Comment on above: Patient Position: Sitting; Cuff Location : Right Arm; Cuff Size: Standard 11-19-2024 08:43-0400 Body mass index (BMI) [Ratio] 28.3 kg/m2 Anna Marie GOMEZ Work Phone: [facility] 11-19-2024 08:43-0400 Body weight 77.28 kg Anna Marie GOMEZ Work Phone: [facility] 11-19-2024 08:43-0400 Diastolic blood pressure 86 mm[Hg] Anna Marie GOMEZ Work Phone: [facility] 11-19-2024 08:43-0400 Systolic blood pressure 130 mm[Hg] Anna Marie Sales PA Work Phone: [facility] 11-03-2024 10:46-0400 Body mass index (BMI) [Ratio] 28.3 kg/m2 Anna Marie Sales PA Work Phone: [facility] 11-03-2024 10:46-0400 Body weight 77.28 kg Anna Marie Sales PA Work Phone: [facility] 11-03-2024 10:46-0400 Diastolic blood pressure 76 mm[Hg] Anna Marie Sales PA Work Phone: [facility] 11-03-2024 10:46-0400 Systolic blood pressure 118 mm[Hg] Anna Marie Sales PA Work Phone: [facility] 06-12-2024 10:04-0500 Body height 167.64 cm Madina Jules LPN [facility] 06-12-2024 10:04-0500 Body mass index (BMI) [Ratio] 26.95 kg/m2 Madina Jules LPN [facility] 06-12-2024 10:04-0500 Body surface area Derived from formula 1.85 m2 Madina Jules LPN [facility] 06-12-2024 10:04-0500 Body weight 75.75 kg Madina Jules LPN [facility] [employer] [facility] 06-12-2024 10:04-0500 Diastolic blood pressure 85 mm[Hg] Madina Jules LPN [facility] [employer] [facility] Comment on above: Patient Position: Sitting; Cuff Location : Left Arm; Cuff Size: Standard 06-12-2024 10:04-0500 Heart rate 73 /min Madina Jules LPN [facility] [employer] [facility] Comment on above: Pattern: Regular 06-12-2024 10:04-0500 Systolic blood pressure 125 mm[Hg] Madina Jules LPN [facility].; [facility]. Comment on above: Patient Position: Sitting; Cuff Location : Left Arm; Cuff Size: Standard 03-11-2024 07:47-0400 Body weight 71.22 kg Elijah Lyman APRN.FORESTRY BIOLOGY SPECIALIST Work Phone: [facility] 03-11-2024 07:47-0400 Diastolic blood pressure 80 mm[Hg] Elijah Lyman DATA SERVICES DEVELOPER.FORESTRY BIOLOGY SPECIALIST Work Phone: [facility] 03-11-2024 07:47-0400 Systolic blood pressure 122 mm[Hg] Elijah Lyman DATA SERVICES DEVELOPER.FORESTRY BIOLOGY SPECIALIST Work Phone: [facility] 11-28-2022 09:130400 Body height 167.64 cm Lloyd House LPN [facility], [facility].; [facility], [facility]. 11-28-2022 09:130400 Body mass index (BMI) [Ratio] 22.43 kg/m2 [facility], [facility]. 11-28-2022 09:130400 Body surface area Derived from formula 1.71 m2 Lloyd House LPN [facility], [facility].; [facility], [facility]. 11-28-2022 09:130400 Body weight 63.05 kg Lloyd House [facility], [facility].; [facility], [facility]. 11-28-2022 09:130400 Diastolic blood pressure 84 mm[Hg] Lloyd House LPN [facility], [facility].; [facility], [facility]. Comment on above: Patient Position: Sitting; Cuff Location : Left Arm; Cuff Size: Standard 11-28-2022 09:130400 Heart rate 78 /min Lloyd House LPN [facility], [facility].; [place] [employer] [facility], [facility]. Comment on above: Pattern: Regular 11-28-2022 09:13-0400 Systolic blood pressure 122 mm[Hg] Lloyd House LPN [facility].; [facility], [facility]. Comment on above: Patient Position: Sitting; Cuff Location : Left Arm; Cuff Size: Standard 07-31-2022 11:01-0500 Body height 167.64 cm Maya Maxwell [facility].; [facility]. 07-31-2022 11:01-0500 Body mass index (BMI) [Ratio] 21.63 kg/m2 Maya Maxwell [facility].; [facility]. 07-31-2022 11:01-0500 Body surface area Derived from formula 1.69 m2 Maya Maxwell [facility].; [facility]. 07-31-2022 11:01-0500 Body temperature 97.9 [degF] Maya Maxwell [facility].; [facility]. Comment on above: Method: Tympanic 07-31-2022 11:01-0500 Body weight 60.78 kg Maya Maxwell [facility].; [place] [employer] [facility]. 07-31-2022 11:01-0500 Diastolic blood pressure 87 mm[Hg] Maya Maxwell MA [facility].; [place] [email or web address]. Comment on above: Patient Position: Sitting; Cuff Location : Left Arm; Cuff Size: Standard 07-31-2022 11:01-0500 Heart rate 125 /min Maya Maxwell MA [facility].; [place] [email or web address]. Comment on above: Pattern: Regular 07-31-2022 11:01-0500 Inhaled oxygen concentration 20 % Maya Maxwell MA [facility].; [place] [email or web address]. Comment on above: Room air 07-31-2022 11:01-0500 Inhaled oxygen concentration 21 % Maya Maxwell [facility].; [place] [email or web address]. Comment on above: Room air 07-31-2022 11:01-0500 SaO2% (BldA) [Mass fraction] 98 % Maya Maxwell MA [facility].; [place] [employer] 07-31-2022 11:01-0500 Systolic blood pressure 126 mm[Hg] Maya Maxwell MA [facility].; [place] [email or web address]. Comment on above: Patient Position: Sitting; Cuff Location : Left Arm; Cuff Size: Standard 01-29-2022 11:15-0400 Body height 167.64 cm Sandra Longoria MA [facility], [facility].; [place] [employer] [facility]. 01-29-2022 11:15-0400 Body mass index (BMI) [Ratio] 20.98 kg/m2 Sandra Longoria [facility].; [place] [employer] [facility]. 01-29-2022 11:15-0400 Body surface area Derived from formula 1.67 m2 Sandra Longoria MA [facility].; [place] [employer] [facility]. 01-29-2022 11:15-0400 Body weight 58.97 kg Sandra Longoria MA [facility].; [place] [employer] [facility]. 01-29-2022 11:15-0400 Diastolic blood pressure 84 mm[Hg] Sandra Longoria MA [facility].; [place] [email or web address]. Comment on above: Patient Position: Sitting; Cuff Location : Left Arm; Cuff Size: Standard 01-29-2022 11:15-0400 Heart rate 84 /min Sandra Longoria MA [facility].; [place] [email or web address]. Comment on above: Pattern: Regular 01-29-2022 11:15-0400 Systolic blood pressure 119 mm[Hg] Sandra Longoria MA [facility].; [place] [email or web address]. Comment on above: Patient Position: Sitting; Cuff Location : Left Arm; Cuff Size: Standard 12-08-2021 14:08-0400 Body height 167.64 cm Lloyd House LPN [facility].; [place] [employer] [facility]. 12-08-2021 14:08-0400 Body mass index (BMI) [Ratio] 20.98 kg/m2 Lloyd House LPN [facility].; [place] [employer], [facility]. 12-08-2021 14:08-0400 Body surface area Derived from formula 1.67 m2 Lloyd House LPN [facility], [facility].; [place] [employer] [facility]. 12-08-2021 14:08-0400 Body weight 58.97 kg Lloyd House [employer]CT MANA[employer]ERS [facility], [facility].; [place] [employer] [facility]. 12-08-2021 14:08-0400 Diastolic blood pressure 80 mm[Hg] Lloyd House [facility], [facility].; [employer]. Comment on above: Patient Position: Sitting; Cuff Location : Left Arm; Cuff Size: Standard 12-08-2021 14:08-0400 Heart rate 97 /min Lloyd House [facility] [place] [email or web address]. Comment on above: Pattern: Regular 12-08-2021 14:08-0400 Systolic blood pressure 122 mm[Hg] Lloyd House [facility], [facility].; [place] [email or web address]. Comment on above: Patient Position: Sitting; Cuff Location : Left Arm; Cuff Size: Standard 06-09-2021 10:37-0500 Body height 166.37 cm Lloyd Owenach [facility], [facility].; [place] [employer] [facility]. 06-09-2021 10:37-0500 Body mass index (BMI) [Ratio] 21.3 kg/m2 [facility].; [place] [employer] [facility], [facility]. 06-09-2021 10:37-0500 Body surface area Derived from formula 1.66 m2 Lloyd Owenach [facility], [facility].; [place] [email or web address]. 06-09-2021 10:37-0500 Body temperature 99.3 [degF] Lloyd Ramirez Lacy [facility], [facility].; [employer]. Comment on above: Method: Tympanic 06-09-2021 10:37-0500 Body weight 58.97 kg Lloyd Ramirez Lacy [facility], [facility].; [employer]. 06-09-2021 10:37-0500 Diastolic blood pressure 84 mm[Hg] Lloyd House [facility].; [employer]. Comment on above: Patient Position: Sitting; Cuff Location : Left Arm; Cuff Size: Standard 06-09-2021 10:37-0500 Heart rate 78 /min Lloyd M Lacy REINOSO [facility], [facility].; [place] [employer] [facility], [employer]. Comment on above: Pattern: Regular 06-09-2021 10:37-0500 Inhaled oxygen concentration 20 % Lloyd House [facility], [facility].; [facility] Comment on above: Room air 06-09-2021 10:37-0500 Inhaled oxygen concentration 21 % Lloyd [facility], [facility].; [place] [employer] [facility] Comment on above: Room air 06-09-2021 10:37-0500 SaO2% (BldA) [Mass fraction] 98 % Lloyd Ramirez Lacy [facility], [facility].; [facility] 06-09-2021 10:37-0500 Systolic blood pressure 122 mm[Hg] Lloyd House [facility], [facility].; [place] [employer] [facility], [employer]. Comment on above: Patient Position: Sitting; Cuff Location : Left Arm; Cuff Size: Standard 02-17-2021 08:50-0400 Body height 166.37 cm Sandra Gauthier LPN [facility], [facility].; [facility], [facility]. 02-17-2021 08:50-0400 Body mass index (BMI) [Ratio] 20.81 kg/m2 Sandra Gauthier [employer] MA[employer] [facility], [facility].; [place] [employer] [facility] 02-17-2021 08:50-0400 Body surface area Derived from formula 1.64 m2 Sandra Gauthier LPN [facility], [facility].; [facility], [facility]. 02-17-2021 08:50-0400 Body temperature 98.4 [degF] Sandra Gauthier [facility], [facility].; [place] [employer], [employer]. Comment on above: Method: Tympanic 02-17-2021 08:50-0400 Body weight 57.61 kg Sandra Gauthier LPN [facility], [facility].; [place] [employer] [facility] 02-17-2021 08:50-0400 Diastolic blood pressure 78 mm[Hg] Sandra Gauthier LPN [facility], [facility].; [employer], [employer]. Comment on above: Patient Position: Sitting; Cuff Location : Left Arm; Cuff Size: Standard 02-17-2021 08:50-0400 Heart rate 60 /min Sandra Abrahan REINOSO [facility], [facility].; [employer], [employer]. Comment on above: Pattern: Regular 02-17-2021 08:50-0400 Systolic blood pressure 117 mm[Hg] Sandra Abrahan REINOSO [facility], [facility].; [employer], [employer]. Comment on above: Patient Position: Sitting; Cuff Location : Left Arm; Cuff Size: Standard 08-05-2020 14:59-0500 Body height 166.37 cm Neilee L Vess [facility], [facility].; [place] [employer], [facility]. 08-05-2020 14:59-0500 Body mass index (BMI) [Percentile] Per age and sex 52 % Neilee L Vess [employer] [facility], [facility].; [employer], [employer]. 08-05-2020 14:59-0500 Body mass index (BMI) [Ratio] 21.8 kg/m2 Neilee L Vess [employer] [facility], [facility].; [employer], [facility]. 08-05-2020 14:59-0500 Body surface area Derived from formula 1.67 m2 Neilee L Vess [employer] [place] [employer] [facility], [facility].; [employer], [employer]. 08-05-2020 14:59-0500 Body temperature 98.7 [degF] Neilee L Vess [employer] [place] [employer] [facility], [facility].; [employer], [employer]. Comment on above: Method: Tympanic 08-05-2020 14:59-0500 Body weight 60.33 kg Neilee L Vess [employer] [place] [employer] [facility], [facility].; [employer], [employer]. 08-05-2020 14:59-0500 Diastolic blood pressure 91 mm[Hg] Neilee L Vess [employer] [place] [employer], [facility].; [employer], [employer]. Comment on above: Patient Position: Sitting; Cuff Location : Right Arm; Cuff Size: Standard 08-05-2020 14:59-0500 Heart rate 76 /min Neilee L Vess [employer] [place] [employer] [facility], [facility].; [employer]. Comment on above: Pattern: Regular 08-05-2020 14:59-0500 Systolic blood pressure 135 mm[Hg] Neerrole Nereyda Nam [employer]. Comment on above: Patient Position: Sitting; Cuff Location : Right Arm; Cuff Size: Standard 08-18-2019 13:40-0500 Body height 166.37 cm Anastasiiae Nereyda Nam [employer]. 08-18-2019 13:40-0500 Body mass index (BMI) [Percentile] Per age and sex 46 % Neilee L Vess [employer], [employer]. 08-18-2019 13:40-0500 Body mass index (BMI) [Ratio] 21.14 kg/m2 Neilee L Vess [employer], [employer]. 08-18-2019 13:40-0500 Body surface area Derived from formula 1.65 m2 Anastasiiae L Viv [employer], [employer]. 08-18-2019 13:40-0500 Body temperature 99 [degF] Anastasiiae Nereyda Nam [employer]. Comment on above: Method: Tympanic 08-18-2019 13:40-0500 Body weight 58.51 kg Anastasiiae Nereyda Nam [employer] 06-08-2019 09:01-0500 Body height 166.37 cm Rita English LPN [employer] [employer], [employer]. 06-08-2019 09:01-0500 Body temperature 98.5 [degF] Rita English [facility] [employer].; [employer]. Comment on above: Method: Tympanic 06-08-2019 09:01-0500 Diastolic blood pressure 85 mm[Hg] Rita English LPN [employer]. Comment on above: Patient Position: Sitting; Cuff Location : Left Arm; Cuff Size: Standard 06-08-2019 09:01-0500 Heart rate 90 /min Rita English LPN [employer]. Comment on above: Pattern: Regular 06-08-2019 09:01-0500 Systolic blood pressure 119 mm[Hg] Rita Wekwame REINOSO [employer] Comment on above: Patient Position: Sitting; Cuff Location : Left Arm; Cuff Size: Standard 10-30-2018 08:110400 Body temperature 98 [degF] Rita Tameka REINOSO [employer] Comment on above: Method: Tympanic 10-30-2018 08:110400 Body weight 53.52 kg Ritafrancisco English LPN [employer] 10-30-2018 08:11-0400 Inhaled oxygen concentration 20 % Rita English I[employer] MA[employer] Comment on above: Room air 10-30-2018 08:110400 Inhaled oxygen concentration 21 % Rita English LPN [employer] Comment on above: Room air 10-30-2018 08:11-0400 SaO2% (BldA) [Mass fraction] 97 % Rita English LPN [employer] 06-20-2018 10:07-0500 Body height 166.37 cm Rita English LPN [employer] 06-20-2018 10:07-0500 Body mass index (BMI) [Percentile] Per age and sex 41 % Rita English LPN [employer] 06-20-2018 10:07-0500 Body mass index (BMI) [Ratio] 20.41 kg/m2 Rita English LPN [employer] 06-20-2018 10:07-0500 Body surface area Derived from formula 1.63 m2 Rita English [employer]. 06-20-2018 10:07-0500 Body temperature 99 [degF] Rita Rahmankwame REINOSO [employer]. Comment on above: Method: Tympanic 06-20-2018 10:07-0500 Body weight 56.5 kg Rita Wekwame REINOSO [employer] 06-20-2018 10:07-0500 Heart rate 84 /min Rita English LPN [employer]. Comment on above: Pattern: Regular 06-20-2018 10:07-0500 Inhaled oxygen concentration 20 % Rita Josiahkwame [employer]. Comment on above: Room air 06-20-2018 10:07-0500 Inhaled oxygen concentration 21 % Rita English LPN [employer]. Comment on above: Room air 06-20-2018 10:07-0500 SaO2% (BldA) [Mass fraction] 98 % Rita Rahmankwame REINOSO [employer]. 04-22-2018 09:59-0400 Body height 166.37 cm Whitetruffle-C Work Phone: [employer] 04-22-2018 09:59-0400 Body mass index (BMI) [Percentile] Per age and sex 45 % Schoolfy PA-C Work Phone: [employer].; [employer]. 04-22-2018 09:59-0400 Body mass index (BMI) [Ratio] 20.65 kg/m2 [employer] PA-C Work Phone: [employer].; [employer]. 04-22-2018 09:59-0400 Body surface area Derived from formula 1.63 m2 [employer] PA-C Work Phone: [employer]; [employer]. 04-22-2018 09:59-0400 Body temperature 99.2 [degF] Anna Marie Sales PA-C Work Phone: [employer]; [employer]. 04-22-2018 09:59-0400 Body weight 57.15 kg Anna Marie Sales PA-C Work Phone: [employer]; [employer]. 04-22-2018 09:59-0400 Inhaled oxygen concentration 20 % Anna Marie Sales PA-C Work Phone: [employer]; [employer]. Comment on above: Room air 04-22-2018 09:59-0400 Inhaled oxygen concentration 21 % Anna Marie Sales PA-C Work Phone: [employer]; [employer]. Comment on above: Room air 04-22-2018 09:59-0400 SaO2% (BldA) [Mass fraction] 97 % Anna Marie Sales PA-C Work Phone: [employer]; [employer]. 04-14-2018 14:59-0400 Body height 166.37 cm Conchita Hawthorne RN [employer].; [employer]. 04-14-2018 14:59-0400 Body mass index (BMI) [Percentile] Per age and sex 45 % Conchita Hawthorne RN [employer].; [employer]. 04-14-2018 14:59-0400 Body mass index (BMI) [Ratio] 20.66 kg/m2 Conchita Hawthorne RN [employer].; [employer]. 04-14-2018 14:59-0400 Body surface area Derived from formula 1.64 m2 Conchita Hawthorne RN [employer].; [employer]. 04-14-2018 14:59-0400 Body temperature 99.3 [degF] Conchita Hawthorne RN [employer].; [employer]. Comment on above: Method: Tympanic 04-14-2018 14:59-0400 Body weight 57.2 kg Conchita Hawthorne RN [place] [employer] [facility], [employer] 01-28-2018 09:25-0400 Body height 309.88 cm Neilee L Vess I[employer] MA[employer], [employer].; [employer]. 01-28-2018 09:25-0400 Body mass index (BMI) [Percentile] Per age and sex 0 % Neilee L Vess [employer], [employer]. 01-28-2018 09:25-0400 Body mass index (BMI) [Ratio] 3.09 kg/m2 Neilee L Vess [employer] 01-28-2018 09:25-0400 Body surface area Derived from formula 1.94 m2 Neilee L Vess [employer], [employer].; [employer]. 01-28-2018 09:25-0400 Body weight 29.71 kg Neilee L Vess [employer]. 01-28-2018 09:25-0400 Diastolic blood pressure 67 mm[Hg] Neilee L Vess [employer]. Comment on above: Patient Position: Sitting; Cuff Location : Left Arm; Cuff Size: Standard 01-28-2018 09:25-0400 Heart rate 67 /min Neilee L Vess [employer]. Comment on above: Pattern: Regular 01-28-2018 09:25-0400 Systolic blood pressure 107 mm[Hg] Neilee L Vess [employer]. Comment on above: Patient Position: Sitting; Cuff Location : Left Arm; Cuff Size: Standard 11-06-2016 08:32-0400 Body temperature 98.8 [degF] Neilee L Vess [employer], [employer]. Comment on above: Method: Tympanic 11-06-2016 08:32-0400 Body weight 55.79 kg Neilee L Vess [employer].; [employer]. 11-06-2016 08:32-0400 Diastolic blood pressure 88 mm[Hg] Neilee L Vess [employer].; [employer]. Comment on above: Patient Position: Sitting; Cuff Location : Right Arm; Cuff Size: Standard 11-06-2016 08:32-0400 Heart rate 70 /min Neilee L Vess [employer]. Comment on above: Pattern: Regular 11-06-2016 08:32-0400 Systolic blood pressure 141 mm[Hg] Neilee L Vess [employer].; [employer]. Comment on above: Patient Position: Sitting; Cuff Location : Right Arm; Cuff Size: Standard 10-18-2016 14:55-0400 Body height 166.37 cm Conchita Hawthorne RN [employer]. 10-18-2016 14:55-0400 Body mass index (BMI) [Percentile] Per age and sex 50 % Conchita Hawthorne RN [employer]. 10-18-2016 14:55-0400 Body mass index (BMI) [Ratio] 20.37 kg/m2 Conchita Hawthorne RN [employer]. 10-18-2016 14:55-0400 Body surface area Derived from formula 1.63 m2 Conchita Hawthorne RN [employer]. 10-18-2016 14:55-0400 Body temperature 98.2 [degF] Conchita Hawthorne RN [employer]. Comment on above: Method: Tympanic 10-18-2016 14:55-0400 Body weight 56.38 kg Conchita Hawthorne RN [employer]. 10-04-2016 14:42-0400 Body height 166.37 cm Conchita Hawthorne RN [employer]. 10-04-2016 14:42-0400 Body mass index (BMI) [Percentile] Per age and sex 48 % Conchita Hawthorne RN [employer].; [employer]. 10-04-2016 14:42-0400 Body mass index (BMI) [Ratio] 20.16 kg/m2 Conchita Hawthorne RN [employer]. 10-04-2016 14:42-0400 Body surface area Derived from formula 1.62 m2 Conchita Hawthorne RN [employer]. 10-04-2016 14:42-0400 Body temperature 99.8 [degF] Conchita Hawthorne RN [employer].; [employer]. Comment on above: Method: Tympanic 10-04-2016 14:42-0400 Body weight 55.79 kg Conchita Hawthorne RN [employer].; [employer]. 05-09-2016 13:18-0400 Body height 166.37 cm Conchita Hawthorne RN [employer].; [employer]. 05-09-2016 13:18-0400 Body mass index (BMI) [Percentile] Per age and sex 43 % Conchita Hawthorne RN [employer].; [employer]. 05-09-2016 13:18-0400 Body mass index (BMI) [Ratio] 19.62 kg/m2 Conchita Hawthorne RN [employer].; [employer]. 05-09-2016 13:18-0400 Body surface area Derived from formula 1.6 m2 Conchita Hawthorne RN [employer].; [employer]. 05-09-2016 13:18-0400 Body temperature 99.3 [degF] Conchita Hawthorne RN [employer].; [employer]. Comment on above: Method: Tympanic 05-09-2016 13:18-0400 Body weight 54.3 kg Conchita Hawthorne RN [employer].; [employer]. 05-09-2016 13:18-0400 Heart rate 118 /min Conchita Hawthorne RN [employer].; [employer]. Comment on above: Pattern: Regular 05-09-2016 13:18-0400 Inhaled oxygen concentration 20 % Conchita Hawthorne RN [employer]. Comment on above: Room air 05-09-2016 13:18-0400 Inhaled oxygen concentration 21 % Conchita Hawthorne RN [employer]. Comment on above: Room air 05-09-2016 13:18-0400 SaO2% (BldA) [Mass fraction] 97 % Conchita Hawthorne RN [employer]. 04-04-2016 10:44-0400 Body height 166.37 cm Mandi Maldonado RN Work Phone: [employer]; [employer]. 04-04-2016 10:44-0400 Body mass index (BMI) [Percentile] Per age and sex 40 % Mandi Maldonado RN Work Phone: [employer].; [employer]. 04-04-2016 10:44-0400 Body mass index (BMI) [Ratio] 19.34 kg/m2 Mandi Maldonado RN Work Phone: [employer].; [employer]. 04-04-2016 10:44-0400 Body surface area Derived from formula 1.59 m2 Mandi Maldonado RN Work Phone: [employer].; [employer]. 04-04-2016 10:44-0400 Body temperature 99.1 [degF] Mandi Maldonado RN Work Phone: [employer].; [employer]. Comment on above: Method: Tympanic 04-04-2016 10:44-0400 Body weight 53.52 kg Mandi Maldonado RN Work Phone: [employer].; [employer]. 04-04-2016 10:44-0400 Inhaled oxygen concentration 20 % Mandi Maldonado RN Work Phone: [employer].; [employer]. Comment on above: Room air 04-04-2016 10:44-0400 Inhaled oxygen concentration 21 % Mandi Maldonado RN Work Phone: [employer]; [employer]. Comment on above: Room air 04-04-2016 10:44-0400 SaO2% (BldA) [Mass fraction] 99 % Mandi Maldonado RN Work Phone: [employer]. 03-21-2016 10:53-0400 Body height 165.74 cm Conchita Hawthorne RN [employer]. 03-21-2016 10:53-0400 Body mass index (BMI) [Percentile] Per age and sex 49 % Conchita Hawthorne RN [employer]. 03-21-2016 10:53-0400 Body mass index (BMI) [Ratio] 19.96 kg/m2 Conchita Hawthorne RN [employer]. 03-21-2016 10:53-0400 Body surface area Derived from formula 1.6 m2 Conchita Hawthorne RN [employer]. 03-21-2016 10:53-0400 Body temperature 98 [degF] Conchita Hawthorne RN [employer]. Comment on above: Method: Tympanic 03-21-2016 10:53-0400 Body weight 54.84 kg Conchita Hawthorne RN [employer]. 03-21-2016 10:53-0400 Diastolic blood pressure 73 mm[Hg] Conchita Hawthorne RN [employer]. Comment on above: Patient Position: Sitting; Cuff Location : Left Arm; Cuff Size: Standard 03-21-2016 10:53-0400 Heart rate 59 /min Conchita Hawthorne RN [employer]. Comment on above: Pattern: Regular 03-21-2016 10:53-0400 Systolic blood pressure 112 mm[Hg] Conchita Hawthorne RN [employer]; [employer]. Comment on above: Patient Position: Sitting; Cuff Location : Left Arm; Cuff Size: Standard 11-07-2015 11:47-0400 Body height 163.83 cm Anna Marie Sales PA-C Work Phone: [employer]; [employer]. 11-07-2015 11:47-0400 Body mass index (BMI) [Percentile] Per age and sex 44 % Anna Marie Sales PA-C Work Phone: [employer]; [employer]. 11-07-2015 11:47-0400 Body mass index (BMI) [Ratio] 19.43 kg/m2 Anna Marie Sales PA-C Work Phone: [employer]; [employer]. 11-07-2015 11:47-0400 Body surface area Derived from formula 1.55 m2 Anna Marie Sales PA-C Work Phone: [employer]; [employer]. 11-07-2015 11:47-0400 Body temperature 99.6 [degF] Anna Marie Sales PA-C Work Phone: [employer]; [employer]. Comment on above: Method: Tympanic 11-07-2015 11:47-0400 Body weight 52.16 kg Anna Marie Sales PA-C Work Phone: [employer]; [employer]. 11-07-2015 11:47-0400 Diastolic blood pressure 66 mm[Hg] Anna Marie Sales PA-C Work Phone: [employer]; [employer]. Comment on above: Patient Position: Sitting; Cuff Location : Right Arm; Cuff Size: Standard 11-07-2015 11:47-0400 Heart rate 69 /min Anna Marie Sales PA-C Work Phone: [employer]; [employer]. Comment on above: Pattern: Regular 11-07-2015 11:47-0400 Systolic blood pressure 128 mm[Hg] Anna Marie Sales PA-C Work Phone: [employer]. Comment on above: Patient Position: Sitting; Cuff Location : Right Arm; Cuff Size: Standard 02-09-2015 14:51-0400 Body height 164.47 cm Conchita Hawthorne RN [employer]. 02-09-2015 14:51-0400 Body mass index (BMI) [Percentile] Per age and sex 41 % Conchita Hawthorne RN [employer]. 02-09-2015 14:51-0400 Body mass index (BMI) [Ratio] 18.78 kg/m2 Conchita Hawthorne RN [employer]. 02-09-2015 14:51-0400 Body surface area Derived from formula 1.54 m2 Conchita Hawthorne RN [employer]. 02-09-2015 14:51-0400 Body temperature 98.4 [degF] Conchita Hawthorne RN [employer]. Comment on above: Method: Tympanic 02-09-2015 14:51-0400 Body weight 50.8 kg Conchita Hawthorne RN [employer]. 02-09-2015 14:51-0400 Diastolic blood pressure 62 mm[Hg] Conchita Hawthorne RN [employer]. Comment on above: Patient Position: Sitting; Cuff Location : Left Arm; Cuff Size: Standard 02-09-2015 14:51-0400 Heart rate 62 /min Conchita Hawthorne RN [employer].; [employer]. Comment on above: Pattern: Regular 02-09-2015 14:51-0400 Systolic blood pressure 104 mm[Hg] Conchita Hawthorne RN [employer]. Comment on above: Patient Position: Sitting; Cuff Location : Left Arm; Cuff Size: Standard 11-13-2013 08:09-0400 Body height 162.56 cm Rita English [employer] [place] [employer] [facility], [facility].; [employer] 11-13-2013 08:09-0400 Body mass index (BMI) [Percentile] Per age and sex 31 % Rita English [facility], [facility].; [employer] 11-13-2013 08:09-0400 Body mass index (BMI) [Ratio] 17.38 kg/m2 Rita English [facility] [employer] [facility], [facility].; [employer] 11-13-2013 08:09-0400 Body surface area Derived from formula 1.46 m2 Rita Werubenbobby [facility] [employer] [facility] [employer], [employer] 11-13-2013 08:09-0400 Body temperature 98.3 [degF] Rita English [facility] [employer] [facility].; [employer]. Comment on above: Method: Tympanic 11-13-2013 08:09-0400 Body weight 45.93 kg Rita English [facility] [employer] [facility].; [employer] 01-30-2013 11:02-0400 Body height 158.75 cm Mandi Maldonado RN Work Phone: [place] [email or web address] 01-30-2013 11:02-0400 Body mass index (BMI) [Percentile] Per age and sex 28 % Mandi Maldonado RN Work Phone: [place] [email or web address] 01-30-2013 11:02-0400 Body mass index (BMI) [Ratio] 16.74 kg/m2 Mandi Maldonado RN Work Phone: [employer] 01-30-2013 11:02-0400 Body surface area Derived from formula 1.39 m2 Mandi Maldonado RN Work Phone: [employer].; [employer] 01-30-2013 11:02-0400 Body weight 42.18 kg Mandi Maldonado RN Work Phone: [place] [employer] [facility].; [employer]. 01-30-2013 11:02-0400 Diastolic blood pressure 70 mm[Hg] Mandi Maldonado RN Work Phone: [facility] [employer]. Comment on above: Patient Position: Sitting; Cuff Location : Right Arm; Cuff Size: Standard 01-30-2013 11:02-0400 Heart rate 70 /min Mandi Maldonado RN Work Phone: [place] [employer] [facility] [employer]. Comment on above: Pattern: Regular 01-30-2013 11:02-0400 Systolic blood pressure 109 mm[Hg] Mandi Maldonado RN Work Phone: [place] [employer] [facility] [employer]. Comment on above: Patient Position: Sitting; Cuff Location : Right Arm; Cuff Size: Standard 08-01-2012 08:43-0500 Body height 152.4 cm Rita English LPN [facility], [facility].; [employer]. 08-01-2012 08:43-0500 Body mass index (BMI) [Percentile] Per age and sex 61 % [facility] [employer] [facility], [facility].; [employer] 08-01-2012 08:43-0500 Body mass index (BMI) [Ratio] 18.6 kg/m2 Rita English LPN [place] [employer] [facility], [facility].; [employer] 08-01-2012 08:43-0500 Body surface area Derived from formula 1.36 m2 Rita English LPN [place] [employer] [facility], [facility].; [employer]. 08-01-2012 08:43-0500 Body temperature 98 [degF] Rita English [facility] [employer] [facility].; [employer]. Comment on above: Method: Tympanic 08-01-2012 08:43-0500 Body weight 43.21 kg Rita English LPN [facility], [facility].; [employer] 08-01-2012 08:43-0500 Inhaled oxygen concentration 20 % Rita English LPN [employer] [employer]. Comment on above: Room air 08-01-2012 08:43-0500 Inhaled oxygen concentration 21 % Rtia Tameka REINOSO [employer]. Comment on above: Room air 08-01-2012 08:43-0500 SaO2% (BldA) [Mass fraction] 99 % Rita Tameka REINOSO [employer]. 05-07-2012 08:39-0400 Body height 152.4 cm Anna Marie Sales PA-C Work Phone: [employer].; [employer]. 05-07-2012 08:39-0400 Body mass index (BMI) [Percentile] Per age and sex 39 % Anna Marie Sales PA-C Work Phone: [employer].; [employer]. 05-07-2012 08:39-0400 Body mass index (BMI) [Ratio] 16.99 kg/m2 Anna Marie Sales PA-C Work Phone: [employer].; [employer]. 05-07-2012 08:39-0400 Body surface area Derived from formula 1.31 m2 Anna Marie Sales PA-C Work Phone: [employer].; [employer]. 05-07-2012 08:39-0400 Body temperature 98.8 [degF] Anna Marie Sales PA-C Work Phone: [employer].; [employer]. Comment on above: Method: Tympanic 05-07-2012 08:39-0400 Body weight 39.46 kg Anna Marie Sales PA-C Work Phone: [employer].; [employer]. 05-07-2012 08:39-0400 Inhaled oxygen concentration 20 % Anna Marie Sales PA-C Work Phone: [employer].; [employer] Comment on above: Room air 05-07-2012 08:39-0400 Inhaled oxygen concentration 21 % Anna Marie Sales PATRICIA-Gia Work Phone: [place] [employer] [facility].; [employer]. Comment on above: Room air 05-07-2012 08:39-0400 SaO2% (BldA) [Mass fraction] 99 % Anna Marie Sales PATRICIA-C Work Phone: [place] [employer] [facility].; [employer] 04-30-2012 08:33-0400 Body height 152.4 cm Lloyd Ramirez Lacy [facility] [employer] [facility].; [employer] 04-30-2012 08:33-0400 Body mass index (BMI) [Percentile] Per age and sex 39 % Lloyd House LPN [place] [employer] [facility].; [employer] 04-30-2012 08:33-0400 Body mass index (BMI) [Ratio] 16.99 kg/m2 Lloyd House [facility] [employer] [facility].; [employer] 04-30-2012 08:33-0400 Body surface area Derived from formula 1.31 m2 Lloyd House [facility] [employer] [facility].; [employer] 04-30-2012 08:33-0400 Body temperature 99.8 [degF] Lloyd Ashley House [facility] [employer] [facility].; [employer]. Comment on above: Method: Tympanic 04-30-2012 08:33-0400 Body weight 39.46 kg Lloyd Ramirez Lacy REINOSO [place] [employer] [facility].; [employer]. 11-22-2011 13:28-0400 Body height 149.86 cm Kristin Pérez LPN Work Phone: [employer]. 11-22-2011 13:28-0400 Body mass index (BMI) [Percentile] Per age and sex 46 % Kristin Pérez LPN Work Phone: [facility] [facility].; [employer] 11-22-2011 13:28-0400 Body mass index (BMI) [Ratio] 17.17 kg/m2 Kristin Pérez LPN Work Phone: [employer]; [employer]. 11-22-2011 13:28-0400 Body surface area Derived from formula 1.28 m2 Kristin Pérez LPN Work Phone: [employer]; [employer] 11-22-2011 13:28-0400 Body temperature 98.7 [degF] Kristin Pérez LPN Work Phone: [employer]; [employer] Comment on above: Method: Tympanic 11-22-2011 13:28-0400 Body weight 38.56 kg Kristin Pérez LPN Work Phone: [employer]; [employer] 11-22-2011 13:28-0400 Heart rate 98 /min Kristin Pérez LPN Work Phone: [employer]; [employer]. Comment on above: Pattern: Regular 11-22-2011 13:28-0400 Inhaled oxygen concentration 20 % Kristin Pérez LPN Work Phone: [employer]; [employer] Comment on above: Room air 11-22-2011 13:28-0400 Inhaled oxygen concentration 21 % Kristin Pérez LPN Work Phone: [employer]; [employer] Comment on above: Room air 11-22-2011 13:28-0400 SaO2% (BldA) [Mass fraction] 97 % Kristin Pérez LPN Work Phone: [employer]; [employer] 07-26-2011 08:48-0500 Body height 146.05 cm Conchita Hawthorne RN [employer] 07-26-2011 08:48-0500 Body mass index (BMI) [Percentile] Per age and sex 56 % Conchita Hawthorne RN [place] [employer] [facility].; [employer]. 07-26-2011 08:48-0500 Body mass index (BMI) [Ratio] 17.61 kg/m2 Conchita Hawthorne RN [facility].; [employer] 07-26-2011 08:48-0500 Body surface area Derived from formula 1.24 m2 Conchita Hawthorne RN [place] [employer] [facility].; [employer] 07-26-2011 08:48-0500 Body temperature 97 [degF] Conchita Hawthorne RN [place] [employer] [facility].; [employer]. Comment on above: Method: Tympanic 07-26-2011 08:48-0500 Body weight 37.56 kg Conchita Hawthorne RN [place] [employer] [facility].; [employer] 06-26-2011 15:45-0500 Body height 146.05 cm Neilee L Vess [employer].; [employer]. 06-26-2011 15:45-0500 Body mass index (BMI) [Percentile] Per age and sex 61 % Neilee L Vess [employer].; [employer], [employer] 06-26-2011 15:45-0500 Body mass index (BMI) [Ratio] 17.86 kg/m2 Neilee L Vess [employer].; [employer]. 06-26-2011 15:45-0500 Body surface area Derived from formula 1.25 m2 Neilee L Vess [employer].; [employer]. 06-26-2011 15:45-0500 Body temperature 98.6 [degF] Neilee L Vess [employer].; [employer], [employer]. 06-26-2011 15:45-0500 Body weight 38.1 kg Neilee L Vess [employer].; [employer]. 05-30-2011 08:40-0500 Body height 148.59 cm Lloyd House LPN [employer]. 05-30-2011 08:40-0500 Body mass index (BMI) [Percentile] Per age and sex 35 % Lloyd [facility]ach [facility].; [employer] [facility]. 05-30-2011 08:40-0500 Body mass index (BMI) [Ratio] 16.23 kg/m2 Lloyd House [facility].; [employer] [facility]. 05-30-2011 08:40-0500 Body surface area Derived from formula 1.23 m2 Lloyd Balabach [facility].; [employer] [facility]. 05-30-2011 08:40-0500 Body temperature 97.3 [degF] Lloyd House [facility] [facility].; [employer] Comment on above: Method: Tympanic 05-30-2011 08:40-0500 Body weight 35.83 kg Lloyd Ramirez [facility] [employer]. 05-17-2011 08:59-0400 Body height 146.05 cm [employer] PA-C Work Phone: [employer] 05-17-2011 08:59-0400 Body mass index (BMI) [Percentile] Per age and sex 37 % [employer] PA-C Work Phone: [employer] 05-17-2011 08:59-0400 Body mass index (BMI) [Ratio] 16.33 kg/m2 [employer] PA-C Work Phone: [employer] 05-17-2011 08:59-0400 Body surface area Derived from formula 1.21 m2 [employer] PA-C Work Phone: [employer]. 05-17-2011 08:59-0400 Body temperature 98.3 [degF] [employer] PA-C Work Phone: [employer]; [employer]. Comment on above: Method: Tympanic 05-17-2011 08:59-0400 Body weight 34.84 kg [employer] PA-C Work Phone: [employer]; [employer]. 05-17-2011 08:59-0400 Inhaled oxygen concentration 20 % [employer] PA-C Work Phone: [employer]; [employer]. Comment on above: Room air 05-17-2011 08:59-0400 Inhaled oxygen concentration 21 % [employer] PA-C Work Phone: [employer]; [employer]. Comment on above: Room air 05-17-2011 08:59-0400 SaO2% (BldA) [Mass fraction] 98 % [employer] PA-C Work Phone: [employer]; [employer]. 03-05-2011 15:03-0400 Body height 144.78 cm Conchita Hawthorne RN [employer] 03-05-2011 15:03-0400 Body mass index (BMI) [Percentile] Per age and sex 34 % Conchita Hawthorne RN [employer]. 03-05-2011 15:03-0400 Body mass index (BMI) [Ratio] 16.1 kg/m2 Conchita Hawthorne RN [employer] [employer]. 03-05-2011 15:03-0400 Body surface area Derived from formula 1.18 m2 Conchita Hawthorne RN [employer] [employer]. 03-05-2011 15:03-0400 Body temperature 98.5 [degF] Conchita Hawthorne RN [employer]. Comment on above: Method: Tympanic 03-05-2011 15:03-0400 Body weight 33.75 kg Conchita Hawthorne RN [employer] [employer]. 10-09-2010 16:19-0400 Body height 142.24 cm Mandi Maldonado RN Work Phone: [employer]. 10-09-2010 16:19-0400 Body mass index (BMI) [Percentile] Per age and sex 35 % Mandi Maldonado RN Work Phone: [employer]. 10-09-2010 16:19-0400 Body mass index (BMI) [Ratio] 15.92 kg/m2 Mandi Maldonado RN Work Phone: [employer]. 10-09-2010 16:19-0400 Body surface area Derived from formula 1.14 m2 Mandi Maldonado RN Work Phone: [employer]. 10-09-2010 16:19-0400 Body temperature 98.1 [degF] Mandi Maldonado RN Work Phone: [employer] [employer]. Comment on above: Method: Tympanic 10-09-2010 16:19-0400 Body weight 32.21 kg Mandi Maldonado RN Work Phone: [employer]. 09-07-2010 13:03-0500 Body height 139.7 cm Mandi Maldonado RN Work Phone: [employer]. 09-07-2010 13:03-0500 Body mass index (BMI) [Percentile] Per age and sex 38 % Mandi Maldonado RN Work Phone: [employer] [employer] 09-07-2010 13:03-0500 Body mass index (BMI) [Ratio] 16.04 kg/m2 Mandi Maldonado RN Work Phone: [employer] [employer] 09-07-2010 13:03-0500 Body surface area Derived from formula 1.11 m2 Mandi Maldonado RN Work Phone: [employer] [employer] 09-07-2010 13:03-0500 Body temperature 98.1 [degF] Mandi Maldonado RN Work Phone: [employer] [employer]. Comment on above: Method: Tympanic 09-07-2010 13:03-0500 Body weight 31.3 kg Mandi Maldonado RN Work Phone: [employer] 07-07-2010 08:41-0500 Body height 140.34 cm Anna Marie Sales PA-C Work Phone: [employer] [employer]. 07-07-2010 08:41-0500 Body mass index (BMI) [Percentile] Per age and sex 46 % Anna Marie Sales PA-C Work Phone: [employer]; [employer]. 07-07-2010 08:41-0500 Body mass index (BMI) [Ratio] 16.35 kg/m2 Anna Marie Sales PA-C Work Phone: [employer]; [employer] 07-07-2010 08:41-0500 Body surface area Derived from formula 1.13 m2 Anna Marie Sales PA-C Work Phone: [employer]; [employer]. 07-07-2010 08:41-0500 Body temperature 99 [degF] Anna Marie Sales PA-C Work Phone: [employer]; [employer]. 07-07-2010 08:41-0500 Body weight 32.21 kg Anna Marie Sales PA-C Work Phone: [employer]; [employer]. Encounters Encounter Date Encounter Type Care Provider Facility Start: 07-01-2025 ambulatory Rita Keitaty:[facility] Start: 04-07-2025 End: 04-07-2025 ambulatory Anna Marie Sales PA Facility:[facility] Start: 04-07-2025 End: 04-07-2025 Patient encounter procedure Mechelle Brilliant GASOLINE CATALYST OPERATOR-C -[facility] Work Phone: Start: 03-31-2025 Patient encounter procedure Mechelle Louisetings GASOLINE CATALYST OPERATOR-C -[facility] Work Phone: Start: 03-31-2025 ambulatory Mechelle Brilliant GASOLINE CATALYST OPERATOR Facil ity:[facility] Start: 03-31-2025 End: 03-31-2025 Patient encounter procedure Mechelle Brilliant GASOLINE CATALYST OPERATOR-C -[facility] Work Phone: Start: 03-31-2025 End: 03-31-2025 ambulatory Anna Marie Sales PA Work Phone: -[facility] Start: 03-11-2025 End: 03-11-2025 Patient encounter procedure Kehinde Anand CNM -[facility] Work Phone: Start: 03-11-2025 End: 03-11-2025 ambulatory Anna Marie Sales PA Work Phone: -[facility] Start: 03-11-2025 End: 03-11-2025 ambulatory Anna Marie Sales PA Facility:[facility] Start: 03-03-2025 ambulatory Rita Wolfe cility:[facility] Start: 03-03-2025 Non-patient / Non-visit Dr. Johnnie Rivas DO -[facility] Start: 03-03-2025 End: 03-03-2025 ambulatory Anna Marie Sales PA Work Phone: -[facility] Start: 03-03-2025 End: 03-03-[address] Rita Rivas DO -[facility] Work Phone: Start: 02-18-2025 End: 02-18-[address] Maia Gan MD -[facility] Start: 02-18-2025 End: 02-18-2025 ambulatory BISHNU HEATHDREW [facility] Start: 02-18-2025 End: 02-18-2025 ambulatory Anna Marie Sales PA Facility:[facility] Start: 02-09-2025 End: 02-09-[address] Maia Gan MD -[facility] Work Phone: Start: 02-09-2025 End: 02-09-2025 ambulatory Anna Marie Sales PA Work Phone: -[facility] Start: 02-04-2025 End: 02-04-2025 ambulatory JULIANNA Nielsen LO [facility] Start: 01-15-2025 End: 01-15-[address] Rita Rivas DO -[facility] Work Phone: Start: 01-15-2025 End: 01-15-2025 ambulatory Anna Marie Sales PA Work Phone: -[facility] Start: 01-06-2025 End: 01-06-[address] Maia Gan MD -[facility] Work Phone: Start: 01-06-2025 End: 01-06-2025 ambulatory Anna Marie Sales PA Work Phone: [facility] Work Phone: Start: 12-23-2024 End: 12-23-2024 Patient encounter procedure Kehinde Anand CNM -[facility] Work Phone: Start: 12-23-2024 End: 12-23-2024 ambulatory Anna Marie Sales PA Work Phone: [facility] Work Phone: Start: 12-21-2024 End: 12-21-2024 Patient encounter procedure Kehinde Anand CNM -[facility] Work Phone: Start: 12-21-2024 End: 12-21-2024 ambulatory Anna Marie Sales PA Work Phone: [facility] Work Phone: Start: 12-21-2024 End: 12-21-2024 ambulatory Anna Marie Darlinger PA Facility:[facility] Start: 12-16-2024 End: 12-16-2024 Office outpatient visit 15 minutes Anna Marie Darlinger PA-C Work Phone: [facility] Start: 11-19-2024 End: 11-19-2024 Patient encounter procedure Kehinde Vlad HIGGINS -[facility] Work Phone: Start: 11-19-2024 End: 11-19-2024 ambulatory Anna Marie Sales PA Facility:[facility] Start: 11-19-2024 End: 11-19-2024 ambulatory Anna Marie Sales PA Facility:[facility] Start: 11-03-2024 End: 11-03-2024 Patient encounter procedure Mechelle Francois GASOLINE CATALYST OPERATOR-C -[facility] Work Phone: Start: 11-03-2024 End: 11-03-2024 ambulatory Anna Marie Darlinger PA Facility:[facility] Start: 06-12-2024 End: 06-12-2024 Patient encounter procedure Anna Marie Sales PA-C Work Phone: [facility]; [employer] Start: 06-12-2024 End: 06-12-2024 Periodic preventive med est patient 18-39 yrs Anna Marie Sales PA-C Work Phone: [employer] [facility] Start: 06-12-2024 Patient encounter status Madina Jules LPN [employer] [facility] [employer] Start: 06-12-2024 Review Anna Marie Sales PA-C Work Phone: [employer] [facility] Start: 03-30-2024 End: 03-30-2024 Refill Elijah Lyman APRN.CNP Work Phone: OB/Gynecology Comment on above: Med Change Request Start: 03-30-2024 End: 03-30-2024 ambulatory Elijah Lyman APRN.FORESTRY BIOLOGY SPECIALIST Work Phone: OB/Gynecology Comment on above: Dyspareunia in femal e (Primary Dx) Start: 03-30-2024 End: 03-30-2024 Telemedicine consultation with patient Elijah Lyman APRN.FORESTRY BIOLOGY SPECIALIST Work Phone: OB/Gynecology Start: 03-20-2024 End: 03-20-2024 ambulatory ELIJAH LYMAN OB/Gynecology Start: 03-20-2024 End: 03-20-2024 Patient encounter procedure Whi Tech 1 Certified Wellness Program Coordinator [employer] OB/Gynecology Start: 03-11-2024 End: 03-11-2024 ambulatory ELIJAH LYMAN Facility:[facility] Start: 03-11-2024 End: 03-11-2024 Patient encounter procedure Elijah Lyman APRN.FORESTRY BIOLOGY SPECIALIST Work Phone: OB/Gynecology Comment on above: Dyspareunia in femal e (Primary Dx); Screen for STD (sexually transmitted disease); Encounter for screening for malignant neoplasm of cervix Start: 01-03-2024 End: 01-03-2024 Orders Anna Marie Sales PA-C Work Phone: [employer]. Start: 12-30-2023 End: 12-30-2023 Orders Anna Marie Sales PA-C Work Phone: [employer]. Start: 05-01-2023 End: 05-01-2023 Medication Anna Marie Sales PA-C Work Phone: [employer]. Start: 04-15-2023 End: 04-15-2023 Orders Anna Marie Sales PA-C Work Phone: [employer]. Start: 12-14-2022 End: 12-14-2022 Orders Anna Marie Sales PA-C Work Phone: [employer]. Start: 12-05-2022 End: 12-05-2022 Orders Anna Marie Sales PA-C Work Phone: [employer]. Start: 11-30-2022 End: 12-03-2022 Orders Anna Marie Sales PA-C Work Phone: [employer]. Start: 11-28-2022 End: 11-28-2022 Patient encounter procedure Anna Marie Sales PA-C Work Phone: [employer]. Start: 11-28-2022 End: 11-28-2022 Patient encounter status Anna Marie Saels PA-C Work Phone: [employer] [employer] Start: 10-17-2022 End: 10-17-2022 ambulatory [facility] Work Phone: Start: 10-17-2022 End: 10-17-2022 Patient encounter procedure [facility] Start: 07-31-2022 End: 07-31-2022 Office outpatient visit 15 minutes Anna Marie Sales PA-C Work Phone: [employer]. Start: 01-29-2022 End: 01-29-2022 Office outpatient visit 15 minutes Anna Marie Sales PA-C Work Phone: [employer]. Start: 12-08-2021 End: 12-08-2021 Patient encounter procedure Anna Marie Sales PA-C Work Phone: [employer]. Start: 12-08-2021 End: 12-08-2021 Patient encounter status Anna Marie Sales PA-C Work Phone: [employer] Start: 06-09-2021 End: 06-09-2021 Office outpatient visit 15 minutes Anna Marie Sales PA-C Work Phone: [employer]. Start: 02-17-2021 End: 02-17-2021 Office outpatient visit 15 minutes Anna Marie Sales PA-C Work Phone: [employer]. Start: 08-05-2020 End: 08-05-2020 Office outpatient visit 25 minutes Anna Marie Sales PA-C Work Phone: [employer]. Start: 08-18-2019 End: 08-18-2019 Office outpatient visit 25 minutes Anna Marie Sales PA-C Work Phone: [employer]. Start: 06-08-2019 End: 06-08-2019 Office outpatient visit 15 minutes Anna Marie Sales PA-C Work Phone: [employer]. Start: 12-18-2018 End: 12-18-2018 Patient encounter procedure NATALIA LIANG [facility] Start: 11-15-2018 End: 11-15-2018 Orders Anna Marie Sales PA-C Work Phone: [employer]. Start: 11-14-2018 End: 11-14-2018 Patient encounter procedure ANNA MARIE SALES [facility] Start: 11-03-2018 End: 11-03-2018 Orders Anna Marie Sales PA-C Work Phone: [employer]. Start: 10-30-2018 End: 10-30-2018 Office outpatient visit 15 minutes Anna Marie Sales PA-C Work Phone: [employer]. Start: 06-23-2018 End: 06-23-2018 Orders Anna Marie Sales PA-C Work Phone: [employer]. Start: 06-20-2018 End: 06-22-2018 Office outpatient visit 15 minutes Anna Marie Sales PA-C Work Phone: [employer]. Start: 04-22-2018 End: 04-22-2018 Office outpatient visit 15 minutes Anna Marie Sales PA-C Work Phone: [employer]. Start: 04-14-2018 End: 04-14-2018 Office outpatient visit 25 minutes Anna Marie Sales PA-C Work Phone: [employer]. Start: 01-28-2018 End: 01-28-2018 Ambulatory [facility] Start: 01-28-2018 End: 01-28-2018 Patient encounter procedure Anna Marie Darlinger PA-C Work Phone: [employer] Start: 01-28-2018 End: 01-28-2018 Patient encounter status Jaziel Nam LPN [employer]. Start: 12-13-2016 End: 12-13-2016 Patient encounter procedure Anna Marie Sales PA-C Work Phone: [employer] Start: 11-06-2016 End: 11-06-2016 Office outpatient visit 15 minutes Anna Marie Sales PA-C Work Phone: [employer]. Start: 10-18-2016 End: 10-18-2016 Patient encounter procedure Anna Marie Sales PA-C Work Phone: [employer]. Start: 10-04-2016 End: 10-04-2016 Patient encounter procedure Anna Marie Sales PA-C Work Phone: [employer]. Start: 05-09-2016 End: 05-09-2016 Patient encounter procedure Anna Marie Sales PA-C Work Phone: [employer]. Start: 04-25-2016 End: 04-25-2016 Medication Anna Marie Sales PA-C Work Phone: [employer]. Start: 04-04-2016 End: 04-04-2016 Patient encounter procedure Anna Marie Sales PA-C Work Phone: [employer]. Start: 03-21-2016 End: 03-21-2016 Patient encounter procedure Anna Marie Sales PA-C Work Phone: [employer]. Start: 03-21-2016 End: 03-21-2016 Patient encounter status Conchita Hawthorne RN [employer]. Start: 11-07-2015 End: 11-07-2015 Office outpatient visit 25 minutes Anna Marie Sales PA-C Work Phone: [employer]. Start: 02-09-2015 End: 02-09-2015 Patient encounter procedure Anna Marie Sales PA-C Work Phone: [facility] Start: 02-09-2015 End: 02-09-2015 Routine or child health check Anna Marie Sales PA-C Work Phone: [facility] [employer] Start: 06-09-2014 End: 06-09-2014 Nursing evaluation of patient and report Anna Marie Sales PA-C Work Phone: [employer] Start: 11-13-2013 End: 11-13-2013 Patient encounter procedure Anna Marie Sales PA-C Work Phone: [employer]. Start: 07-02-2013 End: 07-02-2013 Nursing evaluation of patient and report Anna Marie Sales PA-C Work Phone: [facility]. Start: 02-05-2013 End: 02-05-2013 Orders Anna Marie Sales PA-C Work Phone: [facility]. Start: 01-30-2013 End: 01-30-2013 Patient encounter procedure Anna Marie Sales PA-C Work Phone: [facility]. Start: 01-30-2013 End: 01-30-2013 Routine or child health check Mandi Maldonado RN Work Phone: [place] [employer] [facility].; [employer] Start: 08-01-2012 End: 08-01-2012 Patient encounter procedure Anna Marie Sales PA-C Work Phone: [employer] Start: 05-07-2012 End: 05-07-2012 Patient encounter procedure Anna Marie Sales PA-C Work Phone: [employer]. Start: 04-30-2012 End: 04-30-2012 Patient encounter procedure Anna Marie Sales PA-C Work Phone: [employer] Start: 11-22-2011 End: 11-22-2011 Patient encounter procedure Anna Marie Sales PA-C Work Phone: [employer] Start: 07-26-2011 End: 07-26-2011 Patient encounter procedure Anna Marie Sales PA-C Work Phone: [facility] Start: 06-26-2011 End: 06-26-2011 Patient encounter procedure Anna Marie Sales PA-C Work Phone: [employer] Start: 05-30-2011 End: 05-30-2011 Patient encounter procedure Anna Marie Sales PA-C Work Phone: [employer]. Start: 05-17-2011 End: 05-17-2011 Patient encounter procedure Anna Marie Sales PA-C Work Phone: [employer] Start: 03-05-2011 End: 03-05-2011 Patient encounter procedure Anna Marie Sales PA-C Work Phone: [employer] Start: 10-09-2010 End: 10-09-2010 Patient encounter procedure Anna Marie Sales PA-C Work Phone: [employer] Start: 09-07-2010 End: 09-07-2010 Patient encounter procedure Anna Marie Sales PA-C Work Phone: [employer] Start: 09-07-2010 End: 09-07-2010 Routine infant or child health check Anna Marie Sales PA-C Work Phone: [employer]. Start: 07-07-2010 End: 07-07-2010 Patient encounter procedure Anna Marei Sales PA-C Work Phone: [employer] Routine or ch ild health check Ángela Fermin PA-C Work Phone: [facility] [employer]. Routine or ch ild health check Rita English LPN [facility] [facility] Procedures Date Procedure Procedure Detail Performing Clinician Start: 03-31-2025 Urine culture Anna Marie jama PA Work Phone: Start: 03-03-2025 Urnls dip stick/tabl et reagent auto microscopy Anna Marie GOMEZ Work Phone: Start: 03-03-2025 Urine culture Anna Marie GOMEZ Work Phone: Start: 02-18-2025 Procedure Anna Marie GOMEZ Work Phone: Start: 11-19-2024 Urine culture Anna Marie GOMEZ Work Phone: Start: 11-19-2024 Hepatitis C antibody [...] HCV Quant by PCR testing - HCVPCR #[id number] Non Reactive: < 0.8 Equivocal: >/= 0.8 to < 1.0 Reactive: >/= 1.0The CDC requires that a reactive/equivocal HCV antibody result be sent out for confirmation. HCV Quant by PCR testing. Start: 11-19-2024 Procedure Anna Marie GOMEZ Work Phone: Comment on above: Test Ordered: [id number] TSH Receptor Antibody (TBII)TSH Receptor Antibody (TBII) <0.3 U/L ES Reference Range: .Reference Range:Antibody Titer:<1.0 U/L = Negative1.1 - 1.5 U/L = Equivocal>1.5 U/L = PositivePerformed at: ES - [facility] [id number] [place], [place] [id number] Director: Jeronimo Holden MD, Phone: [phone] at: - [facility] [id number] Director: Sandeep Bae PhD, Phone: [phone] Start: 11-19-2024 Rubella IgG measurement Anna Marie GOMEZ Work Phone: Comment on above: Antibody Result: Int erpretationNon-Reactive: Non- ImmuneReactive: ImmuneThe following results were obtained with the [employer] Rubella IgG assay. Results from assays of other manufacturers cannot be used interchangeably. Start: 11-19-2024 Serologic test for syphilis Anna Marie GOMEZ Work Phone: Start: 06-12-2024 End: 06-12-2024 Depression screening Anna Marie Sales PA-C Work Phone: Start: 06-12-2024 End: 06-12-2024 Scr dep neg, no plan reqd Anna Marie Darling er PA-C Work Phone: Start: 03-20-2024 Us pelvic nonobstetr ic real-time image complete Elijah Nura GAXIOLA.FORESTRY BIOLOGY SPECIALIST Work Phone: Start: 06-21-2023 End: 06-21-2023 [place] Teeth Extraction Anna Marie Sales PA-C Work Phone: Start: 12-05-2022 End: 12-13-2022 Us soft tissue head & neck real time imge docm Anna Marie Sales PA-C Work Phone: Start: 11-28-2022 End: 11-28-2022 Depression screening Anna Marie Darlinger PA-C Work Phone: Start: 11-28-2022 End: 11-28-2022 Scr dep neg, no plan reqd Anna Marie Darling er PA-C Work Phone: Start: 10-17-2022 CT of face Start: 12-08-2021 End: 12-08-2021 Depression screening Anna Marie Darlinger PA-C Work Phone: Start: 12-08-2021 End: 12-08-2021 Scr dep neg, no plan reqd Anna Marie Darling er PA-C Work Phone: Start: 08-18-2019 End: 08-18-2019 Body mass index documented Ángela Gottlieb Robert lls PA-C Work Phone: Start: 11-03-2018 End: 11-17-2018 Hepatobiliary syst imaging including gallbladder Anna Marie Darlinger PA-C Work Phone: Start: 11-03-2018 End: 11-15-2018 Us abdominal real time w/image limited Anna Marie Headley Henrry PA-C Work Phone: Start: 06-20-2018 End: 06-24-2018 Us soft tissue head & neck real time imge docm Anna Marie Headley Henrry PA-C Work Phone: Start: 04-14-2018 End: 04-14-2018 Body mass index documented Ángela Jones nkechi PA-C Work Phone: Start: 01-28-2018 End: 02-10-2018 Radex entir thrc lmbr crv sac spi w/skull 1 vw Ángela Gottlieb Jeny PA-C Work Phone: Start: 04-04-2016 End: 04-30-2017 Pressurized/nonpressurized inhalation treatment Ángela Fermin PA-C Work Phone: Comment on above: PO RA s/p treatment - 97 Exam s/p treatment - rhonchi without wheezing Start: 02-09-2015 End: 02-09-2015 Screening test visual acuity quantitative bilat Ángelamendoza Fermin PA-C Work Phone: History of cholecystectomy S/P cholecyste ctomy Anna Marie GOMEZ Work Phone: Comment on above: 2018 Plan of Treatment Date Care Activity Detail Author Start: 03-11-2027 Screening for malign ant neoplasm of cervix Cervical Cancer Screening [facility] Start: 04-07-2025 Bacteria identified in Urine by Culture Urine Culture [facility] Start: 04-07-2025 [facility] Start: 03-11-2025 CBC W Auto Different ial panel - Blood [facility] Start: 03-11-2025 Comprehensive metabo lic 2000 panel - Serum or Plasma [facility] Start: 03-11-2025 Thyroid stimulating hormone measurement [facility] Start: 03-11-2025 GC (Gonorrhea) Scree lovely (18-24) GC (Gonorrhea) Screening () [facility] Start: 03-11-2025 Screening for Chlamy mya trachomatis Chlamydia Screening () [facility] Start: 03-03-2025 [facility] Start: 03-03-2025 Nonstress test [facility] Start: 03-03-2025 Obstetric monitoring [facility] Start: 03-03-2025 Vital signs measurements [facility] Start: 03-03-2025 [facility] Start: 01-06-[address] ug or medicament by intravenous push THER/PROPH/DIAG INJ IV PUSH [facility] Start: 01-06-2025 Iv infusion hydratio n each additional hour HYDRATE IV INFUSION ADD-ON [facility] Start: 01-06-2025 Ther proph/dx njx iv push single/1st sbst/drug THER/PROPH/DIAG INJ IV PUSH [facility] Start: 12-23-2024 Iv infusion hydratio n each additional hour HYDRATE IV INFUSION ADD-ON [facility] Start: 12-23-2024 Ther proph/dx njx iv push single/1st sbst/drug THER/PROPH/DIAG INJ IV PUSH [facility] Start: 06-12-2024 Comprehensive metabo lic panel CMP w/ GFR* ([id number]) Start: 12-Jun-2024 10:37-05:00 [facility] [employer] [employer] Start: 06-12-2024 Assay of ferritin FERRITIN ([id number]) Start: 12-Jun-2024 10:37-05:00 [employer]; [facility]. Start: 06-12-2024 Blood count complete auto&auto difrntl wbc CBC, PLATELETS & AUT DIFF (F) ([id number]) Start: 12-Jun-2024 10:37-05:00 [employer]; [employer] Start: 06-12-2024 Assay of free thyroxine T4 CASANDRA E ([id number]) Start: 12-Jun-2024 10:36-05:00 [employer]; [employer] Start: 06-12-2024 Assay of thyroid stimulating hormone tsh TSH (THYROID STIMULATING HORMONE) ([id number]) Start: 12-Jun-2024 10:36-05:00 [employer]; [facility]. Start: 06-12-2024 Patient encounter procedure Medical; [facility] Start: 12-Jun-2024 10:00-05:00 JUAN Sales Appointment [facility] Start: 03-30-2024 End: 03-30-2024 Follow-up encounter 03/30/2024 8:45 AM EDT [facility] OB/Gynecology [address] [place] [address] Elijah Lyman APRN.FORESTRY BIOLOGY SPECIALIST [address] [place] [address] us follow up OB/Gynecology Comment on above: us follow up Start: 03-22-2024 Covid-19 Vaccine ( season) Covid-19 Vaccine () [facility] Start: 03-22-2024 Influenza vaccination Influenza Vacc ine (#1) [facility] Start: 03-20-2024 End: 03-20-2024 ambulatory 03/20/2024 9:00 AM EDT Procedure OB/Gynecology [address] [place] [address] Dyspareunia in female [N94.10] OB/Gynecology Comment on above: Dyspareunia in femal e [N94.10] Start: 03-11-2024 End: 03-11-2025 US Pelvis PELVIC US [facility] Anc Imaging Routine Dyspareunia in female Expected: 03/11/2024, Expires: 03/11/2025 [facility] Work Phone: Comment on above: Expected: 03/11/2024 , Expires: 03/11/2025 Start: 01-03-2024 Assay of thyroid stimulating hormone tsh [employer]. Start: 01-03-2024 Nursing evaluation o f patient and report Medical; Nurse visit - TSH mjp [employer] Start: 03-Jan-2024 10:40-04:00 NURSEKIA Appointment Request [facility]. Start: 03-22-2023 Covid-19 Vaccine ( season) Covid-19 Vaccine ( season) [facility] Start: 2021 Screening for malign ant neoplasm of cervix Cervical Cancer Screening [facility] Start: 12-18-2019 Hepatitis B Vaccine (1 of 3 - 19+ 3-dose series) Hepatitis B Vaccine (1 of 3 - 19+ 3-dose series) [facility] Start: 12-18-2019 Urine microalbumin profile DTa P,Tdap,Td Vaccine (1 - Tdap) [facility] Start: 2018 Anxiety Screening Anxiety Screening [facility] Start: 2018 Depression Screening Depression Scre ening [facility] Start: 2018 GC (Gonorrhea) Scree lovely () GC (Gonorrhea) Screening () [facility] Start: 2018 Hepatitis C screening Hepatitis C Sc reening [facility] Start: 2018 HIV screening HIV Screening [facility] Start: 2018 Screening for Chlamy mya trachomatis Chlamydia Screening () [facility] Start: 2016 Meningococcal B Vacc ine: Consider Based On Risk (1 of 2 - Patient Seeks Protection) Meningococcal B Vaccine: Consider Based On Risk (1 of 2 - Patient Seeks Protection) [facility] Start: 12-18-2015 HPV Vaccine (1 - 3-d ose series) HPV Vaccine (1 - 3-dose series) [facility] Start: 2014 Peds To Adult Transi tion Annual Assessment Peds To Adult Transition Annual Assessment [facility] Start: 2012 Peds To Adult Transi tion Initial Discussion Peds To Adult Transition Initial Discussion [facility] Alanine aminotransfe rase [Enzymatic activity/volume] in Serum or Plasma [facility] Albumin [Mass/volume ] in Serum or Plasma [facility] Alkaline phosphatase [Enzymatic activity/volume] in Serum or Plasma [facility] Anion gap in Serum o r Plasma [facility] BACTERIAL VAGINOSIS NAAT BACTERI AL VAGINOSIS NAAT Lab Routine Dyspareunia in female 03/11/2024 8:10 AM EDT [facility] Bilirubin, total measurement [facility] BUN/Creatinine ratio [facility] Calcium [Mass/volume ] in Serum or Plasma [facility] FLORIDALMA/TRICHOMONAS NAAT FLORIDALMA /TRICHOMONAS NAAT Lab Routine Dyspareunia in female 03/11/2024 8:10 AM EDT [facility] Carbon dioxide, tota l [Moles/volume] in Central venous blood [facility] Chlamydia trachomatis+Neisseria gonorrhoeae DNA [Presence] in Unspecified specimen by ANIRUDH with probe detection GONORRHEA/CHLAMYDIA NAAT Lab Routine Screen for STD (sexually transmitted disease) 03/11/2024 8:10 AM EDT [facility] Creatinine [Mass/vol ume] in Serum or Plasma [facility] Erythrocyte mean corpuscular volume determination [facility] Erythrocyte mean corpuscular volume determination [facility] Glucose [Mass/volume ] in Serum or Plasma [facility] Hematocrit [Volume Fraction] of Blood [facility] Hematocrit [Volume Fraction] of Blood [facility] Hemoglobin [Mass/vol ume] in Blood [facility] Hemoglobin [Mass/vol ume] in Blood [facility] Leukocytes [#/volume ] in Blood [facility] Leukocytes [#/volume ] in Blood [facility] Mean corpuscular hemoglobin concentration determination [facility] Mean corpuscular hemoglobin concentration determination [facility] Mean corpuscular hemoglobin determination [facility] Mean corpuscular hemoglobin determination [facility] Measurement of gluco se 2 hours after glucose challenge for glucose tolerance test [facility] Measurement of renal function [facility] Neutrophil count [facility] Neutrophil count [facility] Neutrophil percent differential count [facility] Neutrophil percent differential count [facility] PAP TEST PAP TEST Lab Rou shannon Encounter for screening for malignant neoplasm of cervix 03/11/2024 8:10 AM EDT [facility] Patient Education Kick Counts ED False Labor OB Triage: Return to Hospital or Notify Physician if you Experience: [facility] Work Phone: Platelets [#/volume] in Blood [facility] Platelets [#/volume] in Blood [facility] Potassium measurement [facility] Red blood cell count [facility] Red blood cell count [facility] Red cell distributio n width determination [facility] Red cell distributio n width determination [facility] Serologic test for syphilis [facility] Serum chloride measurement [facility] Sodium measurement [facility] Thyroid stimulating hormone measurement [facility] Total protein measurement [facility] Urea nitrogen [Mass/volume] in Serum or Plasma [facility] Urine culture [facility] Urine culture [facility] Immunizations Immunization Date Immunization Notes Care Provider Edward llanos 03-10-2021 COVID-Faby (AD26 .5 ML) Anna Marie Sales PA-C Work Phone: [employer] 01-28-2018 Meningococcal, MCV4, unspecified conjugate formulation(groups A, C, Y and W-135) Anna Marie Sales PA-C Work Phone: [employer]; [employer] 01-28-2018 Counseled parent on risks/benefits of vaccines ([id number]) Anna Marie Sales PA-C Work Phone: [employer]; [employer] 01-28-2018 meningococcal polysaccharide (groups A, C, Y and W-135) diphtheria toxoid conjugate vaccine (MCV4P) Anna Marie Sales PA-C Work Phone: [employer]; [employer]. Comment on above: Site: Left DeltoidVI S Given: * Meningococcal Vaccine (10/20/2015) 06-09-2014 influenza, seasonal, injectable Anna Marie Sales PA-C Work Phone: [employer]; [employer] Comment on above: Site: Deltoid (Left) VIS Given: * Influenza, Inactivated ([id number]) 06-09-2014 IMMUNIZATION ADMIN ([id number]) Anna Marie Sales PA-C Work Phone: [employer]; [employer] 07-02-2013 influenza, seasonal, injectable Anna Marie GOMEZ-Gia Work Phone: [employer]; [employer] Comment on above: Site: Deltoid (Left) VIS Given: * Inactivated Influenza Vaccine (03/01/09) * Inactivated Influenza Vaccine (02/13/11) * Influenza vaccine [id number], inactivated (01/21/2012) * Influenza, Inactivated () * VIS Given (Unspecified) 07-02-2013 IMMUNIZATION ADMIN ([id number]) Anna Marie Sales PA-C Work Phone: [facility] [facility] [employer] [facility] 02-05-2013 varicella virus vaccine Mercedes ssa Sales PA-C Work Phone: [employer] [facility] [employer] Comment on above: Site: Deltoid Area ( Left)VIS Given: * Varicella (Chickenpox) (10/02/07) 01-30-2013 tetanus toxoid, redu marissa diphtheria toxoid, and acellular pertussis vaccine, adsorbed Anna Marie Sales PA-C Work Phone: [employer] [facility]; [employer]. Comment on above: Site: Deltoid (Left) VIS Given: * Tetanus/Diphtheria/(Pertussis) (Td/Tdap) (06/08/08) * Tetanus/Diptheria/Pertussis (Tdap/Td) 08/14/11 10-03-2005 diphtheria, tetanus toxoids and acellular pertussis vaccine Anna Marie Sales PA-C Work Phone: [employer] 10-03-2005 measles, mumps and rubella virus vaccine Anna Marie Sales PA-C Work Phone: [employer] 10-03-2005 poliovirus vaccine, inactivated Anna Marie Sales PA-C Work Phone: [employer] [facility]. 08-31-2002 diphtheria, tetanus toxoids and acellular pertussis vaccine Anna Marie Sales PA-C Work Phone: [employer] [facility]. 08-31-2002 varicella virus vaccine Mercedes ssa Sales PA-C Work Phone: [facility] 03-19-2002 measles, mumps and rubella virus vaccine Anna Marie Sales PA-C Work Phone: [facility] 02-27-2002 hepatitis B vaccine, pediatric or pediatric/adolescent dosage Anna Marie Sales PA-C Work Phone: [facility] 06-18-2001 diphtheria, tetanus toxoids and acellular pertussis vaccine Anna Marie Sales PA-C Work Phone: [facility] 06-18-2001 haemophilus influenz ae type b vaccine, PRP-T conjugate Anna Marie Sales PA-C Work Phone: [facility] 06-18-2001 pneumococcal conjuga te vaccine, 7 valent Anna Marie Sales PA-C Work Phone: [facility] 06-18-2001 poliovirus vaccine, inactivated Anna Marie Sales PA-C Work Phone: [facility] 04-16-2001 diphtheria, tetanus toxoids and acellular pertussis vaccine Anna Marie Sales PA-C Work Phone: [facility] 04-16-2001 haemophilus influenz ae type b vaccine, PRP-T conjugate Anna Marie Sales PA-C Work Phone: [facility] 04-16-2001 pneumococcal conjuga te vaccine, 7 valent Anna Marie Sales PA-C Work Phone: [facility] 04-16-2001 poliovirus vaccine, inactivated Anna Marie Sales PA-C Work Phone: [facility] 02-25-2001 pneumococcal conjuga te vaccine, 7 valent Anna Marie Sales PA-C Work Phone: [facility] 02-21-2001 diphtheria, tetanus toxoids and acellular pertussis vaccine Anna Marie Sales PA-C Work Phone: [facility] 02-21-2001 haemophilus influenz ae type b vaccine, PRP-T conjugate Anna Marie Sales PA-C Work Phone: [facility] 02-21-2001 poliovirus vaccine, inactivated Anna Marie Sales PA-C Work Phone: [facility] 01-21-2001 hepatitis B vaccine, pediatric or pediatric/adolescent dosage Anna Marie Sales PA-C Work Phone: [facility] 2000 hepatitis B vaccine, pediatric or pediatric/adolescent dosage Anna Marie Sales PA-C Work Phone: [facility] Payers Date Payer Category Payer Self-pay [id number] 2024 Unknown [id number] 2023 Unknown [id number] 2023 Unknown [id number] 2000 Unknown [id number] 2.16.84 [id number] 2000 Unknown [id number] 2.16. 840.1.851802.3.579.2.479 2000 Unknown [id number] 2.16. 840.1.156022.3.579.2.479 1961 Unknown [id number] 2.16.84 0.1.183345.3.579.2.651 Private Health Insurance [id number] Unknown [id number] Unknown [id number] 2.16.8 40.1.207823.3.579.2.462 Unknown [id number] 2.16.8 40.1.875950.3.579.2.462 Unknown [id number] 2.16.8 40.1.039139.3.579.2.462 Unknown [id number] 2.16.8 40.1.368261.3.579.2.462 Unknown [id number] 2.16.8 40.1.920241.3.579.2.462 Unknown [id number] 2.16.8 40.1.487951.3.579.2.462 Unknown [id number] 2.16.8 40.1.840111.3.579.2.462 Unknown [id number] 2.16.8 40.1.163038.3.579.2.462 Unknown [id number] 2.16.8 40.1.398233.3.579.2.462 Unknown [id number] 2.16.8 40.1.259835.3.579.2.462 Unknown [id number] 2.16.8 40.1.971196.3.579.2.462 Unknown [id number] 2.16.8 40.1.801239.3.579.2.462 Unknown [id number] 2.16.8 40.1.908146.3.579.2.462 Unknown [id number] 2.16.8 40.1.949680.3.579.2.462 Unknown [id number] 2.16.8 40.1.571743.3.579.2.462 Unknown [id number] 2.16.8 40.1.641449.3.579.2.462 Unknown [id number] 2.16.8 40.1.747049.3.579.2.462 Unknown [id number] 2.16.8 40.1.049817.3.579.2.462 Social History Date Type Detail Facility Start: 11-05-2015 Tobacco smoking stat us NMIS Unknown if ever smoked [facility] Start: 2000 Sex Assigned At Female W [facility] Start: 03-11-2024 End: 03-30-2024 Caffeine Use Caffeine Use [facility] Tobacco/Smoke Exposure: Tobacco/Smoke Exposure: ; None. [facility]. None [facility] Work Phone: Start: 03-11-2024 End: 03-30-2025 Tobacco smoking status NHIS Never smoked tobacco [facility] Start: 03-11-2024 Tobacco use and exposure Smokeless tobacco non-user [facility] Start: 03-11-2024 End: 03-30-2024 Tobacco use panel [facility] National Score (1-100), lower number is lower risk 83 [facility] Start: 2000 Sex assigned at Not on file [facility] Mental Status Date Assessment Result Facility 01-06-2025 Cognitive function Voice/Name [facility] Work Phone: 12-23-2024 Cognitive function Voice/Name [facility] Work Phone: Clinical Notes 03-11-2024 to 03-11-2025 Note Date & Type Note Facility 03-11-2025 Progress note [facility] 03-11-2025 Progress note Note Date/Time March 11, 2025 3:31pm [facility] [address], [address] [place] [address] OFFICE VISIT Date of Service: 03/11/25 MR#: [id number] Acct: [id number] Name: CHERY MCKEON Rep #: [id number] : 2000 Provider: GISELA Anand Age/Sex: 24/F Location[place] [facility] Status: Signed Intake Vital Signs 01/15/25 14:30 03/03/25 18:25 03/11/25 15:12 03/11/25 15:18 Height 5 ft 5 in 5 ft 5 in 5 ft 5 in 5 ft 5 in Weight: 175 lb 3 oz BMI 29.1 BP 135/86 H Intake Visit Reasons: 24wk ob Chief Complaint: 24wk OB Tentmaker Required: No Is patient in pain?: No Allergies No Known Allergies Allergy (Verified 03/11/25 15:10) Medications ?Medication ?Instructions ?Recorded ?Confirmed ?Type loratadine 10 mg tablet (Allergy 10 mg PO DAILY 03/11/25 History Relief (loratadine)) cholecalciferol (vitamin D3) 10 20 mcg PO QDAY 5 03/11/25 History mcg (400 unit) capsule docosahexaenoic acid 200 mg 1 mg PO DAILY 11/03/24 History capsule ( DHA) levothyroxine 25 mcg tablet 50 mcg PO QDAY 11/19/24 History (Levo-T) famotidine 20 mg tablet (Pepcid) 20 mg PO BID #60 tabs 03/11/25 03/11/25 Rx Last Menstrual Period: 09/16/24 : No PFSH PFSH Surgical History [place] teeth removed S/P cholecystectomy Family History Grandfather Prostate cancer Grandmother Colon cancer CVA (cerebral vascular accident) Grandmother Dementia Father Diabetes Myocardial infarction Skin cancer Mother Heart disease Thyroid disorder Social History adopted: No household members: spouse housing: house current occupational status: employed current occupation: [employer] current occupational exposures/hazards: No pets and animals: [...] 1-2 times per week duration: 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 OB Visit JACI Calculator Estimated Delivery Date Method Current WG Current Estimate 07/01/25 Ultrasound #1 24w 0d Other Estimates 06/23/25 LMP (Certain) 25w 1d Expected Delivery Route/Plan Labor Preferences- CB/BF classes: [...] Date -?-?-?-?-?-?-?-?-?-?-?-?- EGA Weight BP Urine Prot -?-?-?-?-?-?-?-?-?-?-?-?- Glucose FHR FuHt Pres Dilation -?-?-?-?-?-?-?-?-?-?-?-?- Effaced St Visit Note 11/19/24 -?-?-?-?-?-?-?-?-?-?-?-?- 8w 0d 170 lb 6 oz (+6 oz) 130/86 -?-?-?-?-?-?-?-?-?-?-?-?- 167 -?-?-?-?-?-?-?-?-?-?-?-?- KW- CRL not cons with dates. JACI changed. declines NIPT. PAP done with [facility] reports normal. 12/21/24 -?-?-?-?-?-?-?-?-?-?-?-?- 12w 4d 165 lb (-5 lb) 126/86 Negative -?-?-?-?-?-?-?-?-?-?-?-?- Negative 158 -?-?-?-?-?-?-?-?-?-?-?-?- KW- CRL cons wi th new dates. labs reviewed. no vb/cramping. 5lb weight loss and still having Nausea. IV fluids ordered. anatomy US ordered. 01/15/25 -?-?-?-?-?-?-?-?-?-?-?-?- 16w 1d 171 lb 2 oz (+1 lb 2 oz) 124/85 Negative -?-?-?-?-?-?-?-?-?-?-?-?- Negative 146 -?-?-?-?-?-?-?-?-?-?-?-?- JV- no spotting but does have some cramping and rib pains. she was vomiting 9 times a day and is now finally feeling better. JV- no spotting but does hav e some cramping and rib pains. she was vomiting 9 times a day and is now finally feeling better. Check TSH next visit. 02/09/25 -?-?-?-?-?-?-?-?-?-?-?-?- 19w 5d 173 lb 2 oz (+3 lb 2 oz) 129/83 Negative -?-?-?-?-?-?-?-?-?-?-?-?- Negative 145 -?-?-?-?-?-?-?-?--?-?-?-?- SM- no vb lof go od fm discussed US findings 03/11/25 -?-?-?-?-?-?-?-?-?-?-?-?- 24w 0d 175 lb 3 oz (+5 lb 3 oz) 135/86 Negative -?-?-?-?-?-?-?-?-?-?-?-?- Negative 150 24 -?-?-?-?-?-?-?-?-?-?-?-?- KW- NO vb/lof/ct x. good fm. refill on pepcid. TSH labs today-did not get 2 vi sits ago. cbc and cmp for RUQ pain. had UTI last week just finished atb. LARC today. ACOG First Trimester First Trimester: Discussed Second Trimester Second Trimester: Signs and Symptoms of Labor, Selecting a care provider, Reproductive Life Planning & Contreception, Care Planning, Depression/Anxiety and Intimate Partner Violence; Discussed Tobacco Cessation Third Trimester Third Trimester: Pain Management Plans, Labor support person(s), Immediate Larc, Signs and Symptoms of Preeclampsia, Feeding No , Education and Family Medical Leave or Disability [...] normal Thought Content: normal Judgment: judgment good Results POC Urinalysis 2 Dip (Clinic) Office Urine Glucose Negative Last Edit by Mago Bustamante on 03/11/25 15:20 Office Urine Protein Negative Last Edit by Mago Bustamante on 03/11/25 15:20 Coding Level of Care Code Off vis,est,level 3 Diagnoses UTI in O23.40 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 reculture in 4 weeks (2) Absent nasal bridge: Status: Acute Comment: possible absent nasal bone on US- fu scan scheduled and offered NIPT (3) Nausea and vomiting during : Status: Acute Comment: phenergan, pepcid (4) Supervision of high-risk : Status: Acute Qualifiers: Trimester: first trimester Qualified Code(s): O09. - Supervision of high risk , unspecified, first trimester Comment: PRR, G1, JACI 07/01/25, girl : Desmond (5) : Status: Acute Qualifiers: Weeks of gestation: 24 weeks Qualified Code(s): Z3A.24 - 24 weeks gestation of Comment: elects NIPT, low risk/declined carrier testing. anatomy reviewed (6) Eczema: Status: Acute Comment: opzelura cream for break outs (7) Sharad's disease: Status: Acute Comment: on Levo - Thyroid labs ordered w/NOB Orders: Orders POC Urinalysis 2 Dip (Clinic) Today Thyroid Stim Hormone (TSH) Today E06.3 - Autoimmune thyroiditis CBC W/Diff, Automated Today O - Supervision of high risk , unspecified, first trimester Comprehensive Metabolic Profil Today O - Supervision of high risk , unspecified, first trimester Medications: Refilled famotidine (Pepcid) 20 mg PO BID 60 tabs 6RF Plan Details Additional Comments: ACOG trimester education reviewed and updated. see problem list details for updated plan management information and see below for orders placed at this visit. GA appropriate handout given. 03/11/25 1531 <Electronically signed by Kehinde walsh CNM> Date _ Kehinde Anand CNM [facility] Signature: Date (if applicable) CC: ~ [facility] Work Phone: 1(790) 482-570907-22-2025 Progress [facility] [address], [address] [place] [id number] OFFICE VISIT Date of Service: 02/09/25 MR#: [id number] Acct: [id number] Name: CHERY MCKEON Rep #: [id number] : 2000 Provider: Dr. Willian Gan MD Age/Sex: 24/F Location: [facility] [place] Status: Signed Intake Vital Signs 12/21/24 15:20 01/15/25 14:30 02/09/25 10:58 Height 5 ft 5 in 5 ft 5 in 5 ft 5 in Weight: 173 lb 2 oz BMI 28.8 BP 129/83 H Intake Visit Reasons: 22 wk ob Tentmaker Required: No Is patient in pain?: No Allergies No Known Allergies Allergy (Verified 02/09/25 11:01) Medications ?Medication ?Instructions ?Recorded ?Confirmed ?Type loratadine 10 mg tablet (Allergy 10 mg PO DAILY 02/09/25 History Relief (loratadine)) cholecalciferol (vitamin D3) 10 20 mcg PO QDAY 5 02/09/25 History mcg (400 unit) capsule docosahexaenoic acid 200 mg 1 mg PO DAILY 11/03/24 History capsule ( DHA) pyridoxine (vitamin B6) 10 mg 10 mg PO QDAY 11/03/24 0 02/09/25 History tablet levothyroxine 25 mcg tablet 50 mcg PO QDAY 11/19/24 History (Levo-T) ondansetron 4 mg disintegrating 4 mg PO Q6H PRN nausea and 11/19/24 02/09/25 Rx tablet vomiting #90 tabs famotidine 20 mg tablet (Pepcid) 20 mg PO BID #60 tabs 02/09/25 02/09/25 Rx promethazine 25 mg rectal 25 mg MT Q4-6H PRN nausea an d 02/09/25 02/09/25 Rx suppository vomiting #12 ea Last Menstrual Period: 09/16/24 Zika: Zika virus screening: Negative : No PFSH PFSH Surgical History [place] teeth removed S/P cholecystectomy Family History Grandfather Prostate cancer Grandmother Colon cancer CVA (cerebral vascular accident) Grandmother Dementia Father Diabetes Myocardial infarction Skin cancer Mother Heart disease Thyroid disorder Social History adopted: No household members: spouse housing: house current occupational status: employed current occupation: [email or web address] current occupational exposures/hazards: No pets and animals: [...] 1-2 times per week duration: 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 OB Visit JACI Calculator Estimated Delivery Date Method Current WG Current Estimate 07/01/25 Ultrasound #1 19w 5d Other Estimates 06/23/25 LMP (Certain) 20w 6d Expected Delivery Route/Plan Labor Preferences- CB/BF classes: [...] current plan of care details and appropriate ordersplaced. Relevant counseling for the gestational age provided. Continue routine care and follow up unless otherwise noted in visit notes/problem list details Initial Weight: 170 lb Date -?-?-?-?-?-?-?-?-?-?-?-?- EGA Weight BP Urine Prot -?-?-?-?-?-?-?-?-?-?-?-?- Glucose FHR FuHt Pres Dilation -?-?-?-?-?-?-?-?-?-?-?-?- Effaced St Visit Note 11/19/24 -?-?-?-?-?-?-?-?-?-?-?-?- 8w 0d 170 lb 6 oz (+6 oz) 130/86 -?-?-?-?-?-?-?--?-?-?-?-?- 167 -?-?-?-?-?-?-?-?-?-?-?-?- KW- CRL not cons with dates. JACI changed. declines NIPT. PAP done with [facility] reports normal. 12/21/24 -?-?-?-?-?-?-?-?-?-?-?-?- 12w 4d 165 lb (-5 lb) 126/86 Negative -?-?-?-?-?-?-?-?-?-?-?-?- Negative 158 -?-?-?-?-?-?-?-?-?-?-?-?- KW- CRL cons wi th new dates. labs reviewed. no vb/cramping. 5lb weight loss and still having Nausea. IV fluids ordered. anatomy US ordered. 01/15/25 -?-?-?-?-?-?-?-?-?-?-?-?- 16w 1d 171 lb 2 oz (+1 lb 2 oz) 124/85 Negative -?-?-?-?-?-?-?-?-?-?-?-?- Negative 146 -?-?-?-?-?-?-?-?-?-?-?-?- JV- no spotting but does have some cramping and rib pains. she was vomiting 9 times a day and is now finally feeling better. JV- no spotting but does hav e some cramping and rib pains. she was vomiting 9 times a day and is now finally feeling better. Check TSH next visit. 02/09/25 -?-?-?-?-?-?-?-?-?-?-?-?- 19w 5d 173 lb 2 oz (+3 lb 2 oz) 129/83 Negative -?-?-?-?-?-?-?-?-?-?-?-?- Negative 145 -?-?-?-?-?-?-?-?-?-?-?-?- SM- no vb lof go od fm discussed US findings ACOG First Trimester First Trimester: Discussed Second Trimester Second Trimester: Signs and Symptoms of Labor, Selecting a care provider, Reproductive Life Planning & Contreception, Care Planning, Depression/Anxiety and Intimate Partner Violence; Discussed Tobacco Cessation Third Trimester Third Trimester: Pain Management Plans, Labor support person(s), Immediate Larc, Signs and Symptoms of Preeclampsia, Feeding No , Education and Family Medical Leave or Disability Forms Results POC Urinalysis 2 Dip (Clinic) Office Urine Glucose Negative Last Edit by Mechelle Johnson on 02/09/25 11:09 Office Urine Protein Negative Last Edit by Mechelle Johnson on 02/09/25 11:09 Coding Level of Care Code OB Routine Diagnoses Nausea and vomiting during O21.9 Supervision of high risk in first trimester O09.91 Trimester: first trimester 19 weeks gestation of Z3A.19 Weeks of gestation: 19 weeks Eczema L30.9 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 - Thyroid labs ordered w/NOB (6) Absent nasal bridge: Status: Acute Comment: possible absent nasal bone on US- fu scan scheduled and offered NIPT Orders: Orders POC Urinalysis 2 Dip (Clinic) Today Medications: New famotidine (Pepcid) 20 mg PO BID 60 tabs 6RF Refilled promethazine 25 mg MT Q4-6H PRN 12 ea 6RF nausea and vomiting 02/09/25 1143 sunitha SMITH> Date _ Maia Gan MD [facility] Signature: Date (if applicable) CC: ~ [facility]06-02-2025 Evaluation note* Diagnosis Onset Date Resolution Status Admit Date Eczema acute December 21, 2024 3:17pm Sharad's disease acute December 21, 2024 3:17pm Nausea and vomiting during acute December 21, 2024 3 :17pm acute December 21, 2024 3:17pm Supervision of high-risk acute December 21, 2024 3 :17pm Eczema acute January 15 2:22pm Sharad's disease acute January 15, 2025 2:22pm Nausea and vomiting during acute January 15, 2025 2:22pm acute January 15 2:22pm Supervision of high-risk acute January 15, 2025 2:22pm Absent nasal bridge acute February 09, 2025 10:57am Eczema acute February 09 10:57am Sharad's disease acute February 09, 2025 10:57am Nausea and vomiting during acute February 09, 2025 10:57am acute February 09 10:57am Supervision of high-risk acute February 09, 2025 10:57am Absent nasal bridge acute 2024 5:32pm Eczema acute March 03, 5:32pm Sharad's disease acute 2024 5:32pm Nausea and vomiting during acute March 03 5:32pm acute March 03, 025 5:32pm Supervision of high-risk acute March 03 5:32pm UTI in acute February 192024 5:32pm Absent nasal bridge acute 2024 3:08pm Eczema acute March 11, 2 025 3:08pm Sharad's disease acute 2024 3:08pm Nausea and vomiting during acute March 11 3:08pm acute March 11, 2 025 3:08pm Supervision of high-risk acute March 11 3:08pm UTI in acute February 202024 3:08pm Absent nasal bridge acute Septe mb2024 8:57am Eczema acute March 8:57am Sharad's disease acute 2024 8:57am Nausea and vomiting during acute March 31, 2025 8:57am acute March 8:57am Supervision of high-risk acute March 31, 2025 8:57am UTI in acute Maremb2024 8:57am [facility] Work Phone: 1(319) 839-199606-02-2025 Evaluation note* Diagnosis Onset Date Resolution Status Admit Date Eczema acute December 21, 2024 3:17pm Sharad's disease acute December 21, 2024 3:17pm Nausea and vomiting during acute December 21, 2024 3 :17pm acute December 21, 2024 3:17pm Supervision of high-risk acute December 21, 2024 3 :17pm Eczema acute January 15 2:22pm Sharad's disease acute January 15, 2025 2:22pm Nausea and vomiting during acute January 15, 2025 2:22pm acute January 15 2:22pm Supervision of high-risk acute January 15, 2025 2:22pm Absent nasal bridge acute February 09, 2025 10:57am Eczema acute February 09 10:57am Sharad's disease acute February 09, 2025 10:57am Nausea and vomiting during acute February 09, 2025 10:57am acute February 09 10:57am Supervision of high-risk acute February 09, 2025 10:57am Absent nasal bridge acute Aug2024 5:32pm Eczema acute March 03, 025 5:32pm Sharad's disease acute Aug2024 5:32pm Nausea and vomiting during acute March 03 5:32pm acute March 03, 025 5:32pm Supervision of high-risk acute March 03 5:32pm UTI in acute February 192024 5:32pm Absent nasal bridge acute Aug2024 3:08pm Eczema acute March 11, 2 025 3:08pm Sharad's disease acute 2024 3:08pm Nausea and vomiting during acute March 11 3:08pm acute March 11, 2 025 3:08pm Supervision of high-risk acute March 11 3:08pm UTI in acute February 202024 3:08pm Absent nasal bridge acute Septe mb2024 8:57am Nausea and vomiting during acute March 31, 2025 8:57am acute March 8:57am Supervision of high-risk acute March 31, 2025 8:57am UTI in acute Septembe 2024 8:57am Absent nasal bridge acute Septe 2024 12:48pm Eczema acute March 12:48pm Sharad's disease acute 2024 12:48pm Nausea and vomiting during acute April 07, 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 acute March 12:48pm Supervision of high-risk acute April 07, 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 UTI in acute 2024 12:48pm [facility] Work Phone: 1(950) 571-207806-02-[address] [facility] [address] [place] [address], [address] [place] [address] OFFICE VISIT Date of Service: 12/21/24 MR#: [id number] Acct: [id number] Name: CHERY MCKEON Rep #: [id number] : 2000 Provider: GISELA Anand Age/Sex: 24/F Location: [facility] [place] Status: Signed Intake Vital Signs 11/05/15 16:09 11/19/24 08:43 12/21/24 15:20 Height 5 ft 5 in 5 ft 5 in 5 ft 5 in Weight: 170 lb 6 oz 165 lb BMI 28.3 27.4 BP 130/86 H 126/86 H Intake Visit Reasons: 12wk ob Chief Complaint: 12wk OB Tentmaker Required: No Is patient in pain?: No [...] tabs promethazine 25 mg rectal 25 mg MT Q4-6H PRN nausea an d 12/21/24 12/21/24 Rx suppository vomiting #12 ea Last Menstrual Period: 09/16/24 PFSH PFSH Surgical History [place] teeth removed S/P cholecystectomy Family History Grandfather Prostate cancer Grandmother Colon cancer CVA (cerebral vascular accident) Grandmother Dementia Father Diabetes Myocardial infarction Skin cancer Mother Heart disease Thyroid disorder Social History adopted: No household members: spouse housing: house current occupational status: employed current occupation: [employer] current occupational exposures/hazards: No pets and animals: [...] 1-2 times per week 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 Relevant counseling for the gestational age provided. [...] -?-?-?-?-?-?-?-?-?-?-?-?- 158 -?-?-?-?-?-?-?-?-?-?-?-?- KW- CRL cons wi th new dates. labs reviewed. no vb/cramping. 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 - Supervision of high risk , unspecified, [...] Autoimmune thyroiditis Medications: Refilled promethazine 25 mg MT Q4-6H PRN 12 ea 0RF nausea and vomiting Plan Details Additional Comments: ACOG trimester education reviewed and updated. see problem list details for updated plan management information and see below for orders placed atthis visit. [place] appropriate handout given. 12/21/24 1541 s CNM> Date _ Kehinde Anand CNM Cosigner Signature: Date (if applicable) CC: ~ [facility]06-02-2025 Progress note Author Kehinde Anand [facility] Note Date/Time December 21, 2024 3:41p [facility] [address] [place] [address], [address] [place] [address] OFFICE VISIT Date of Service: 12/21/24 MR#: [id number] Acct: [id number] Name: LINDACHERYJAYLEEN JIMENEZ Rep #: [id number] : 2000 Provider: GISELA Anand Age/Sex: 24/F Location: [facility] [place] Status: Signed Intake Vital Signs 11/05/15 16:09 11/19/24 08:43 12/21/24 15:20 Height 5 ft 5 in 5 ft 5 in 5 ft 5 in Weight: 170 lb 6 oz 165 lb BMI 28.3 27.4 BP 130/86 H 126/86 H Intake Visit Reasons: 12wk ob Chief Complaint: 12wk OB Tentmaker Required: No Is patient in pain?: No [...] tabs promethazine 25 mg rectal 25 mg MT Q4-6H PRN nausea an d 12/21/24 12/21/24 Rx suppository vomiting #12 ea Last Menstrual Period: 09/16/24 PFSH PFSH Surgical History [place] teeth removed S/P cholecystectomy Family History Grandfather Prostate cancer Grandmother Colon cancer CVA (cerebral vascular accident) Grandmother Dementia Father Diabetes Myocardial infarction Skin cancer Mother Heart disease Thyroid disorder Social History adopted: No household members: spouse housing: house current occupational status: employed current occupation: [employer] current occupational exposures/hazards: No pets and animals: [...] 1-2 times per week duration: 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 labs reviewed. no vb/cramping. 5lb [...] Signs and Symptoms of Preeclampsia, Infant Feeding, [place] Education and Family Medical Leave or Disability [...] Autoimmune thyroiditis Medications: Refilled promethazine 25 mg MT Q4-6H PRN 12 ea 0RF nausea and vomiting Plan Details Additional Comments: ACOG trimester education reviewed and updated. see problem list details for updated plan management information and see below for orders placed at this visit. [place] appropriate handout given. 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 21, 2024 3:17pm Nausea and vomiting during acute December 21, 2024 3 :17pm acute December 21, 2024 3:17pm Supervision of high-risk acute December 21, 2024 3 :17pm Eczema acute January 15 2:22pm Sharad's disease acute January 15, 2025 2:22pm Nausea and vomiting during acute January 15, 2025 2:22pm acute January 15 2:22pm Supervision of high-risk acute January 15, 2025 2:22pm Absent nasal bridge acute February 09, 2025 10:57am Eczema acute February 09 10:57am Sharad's disease acute February 09, 2025 10:57am Nausea and vomiting during acute February 09, 2025 10:57am acute February 09 10:57am Supervision of high-risk acute February 09, 2025 10:57am Absent nasal bridge acute Augus 2024 5:32pm Eczema acute March 03, 025 5:32pm Sharad's disease acute Aug2024 5:32pm Nausea and vomiting during acute March 03 5:32pm acute March 03, 025 5:32pm Supervision of high-risk acute March 03 5:32pm UTI in acute February 192024 5:32pm Absent nasal bridge acute Aug2024 3:08pm Eczema acute March 11, 025 3:08pm Sharad's disease acute Aug2024 3:08pm Nausea and vomiting during acute March 11 3:08pm acute March 11, 2 025 3:08pm Supervision of high-risk acute March 11 3:08pm UTI in acute February 202024 3:08pm [facility] Work Phone: 1(129) 530-970004-15-2025 Evaluation note* Diagnosis Onset Date Resolution Status [...] high-risk acute December 21, 2024 3 :17pm [facility] Work Phone: 1(784) 204-740904-15-2025 Evaluation note* Diagnosis Onset Date Resolution Status [...] high-risk acute December 21, 2024 3 :17pm Eczema acute January 15 2:22pm Sharad's disease acute January 15, 2025 2:22pm Nausea and vomiting during acute January 15, 2025 2:22pm acute January 15 2:22pm Supervision of high-risk acute January 15, 2025 2:22pm [facility] Work Phone: 1(697) 517-990704-15-2025 Evaluation note* Diagnosis Onset Date Resolution Status [...] high-risk acute December 21, 2024 3 :17pm Eczema acute January 15 2:22pm Sharad's disease acute January 15, 2025 2:22pm Nausea and vomiting during acute January 15, 2025 2:22pm acute January 15 2:22pm Supervision of high-risk acute January 15, 2025 2:22pm Absent nasal bridge acute February 09, 2025 10:57am Eczema acute February 09 10:57am Sharad's disease acute February 09, 2025 10:57am Nausea and vomiting during acute February 09, 2025 10:57am acute February 09 10:57am Supervision of high-risk acute February 09, 2025 10:57am [facility] Work Phone: 1([phone]) 301-112309-09-2024 Telephone encounter Note* Telephone Encounter - Jaye Maher RN - 03/30/2024 2:36 PM EDT Pt notified and voiced understanding. Jaye Maher RN [facility]09-09-2024 Miscellaneous Notes* Telephone Encounter - Jaye Maher RN - 03/30/2024 2:36 PM EDT Pt notified and voiced understanding. Jaye Maher RN * Telephone Encounter - Rita Reynolds RN - 03/30/2024 11:42 AM EDT Pharmacy comment: Alternative Requested:NOT COVERED BY INSURANCE. documented in this encounter[facility] Telephone encounter Note * Telephone Encounter - Rita Reynolds RN - 03/30/2024 11:42 AM EDT Pharmacy comment: Alternative Requested:NOT COVERED BY INSURANCE. [facility]09-09-2024 NoteHNO ID: [id number] Author: ELIJAH LYMAN APRN.JEANNE Service: ? Author Type: Nurse Practitioner Type: Progress Notes Filed: 03/30/2024 08:58 Note Text: OGI VIRTUAL VISIT Virtual limitations reviewed with patient, as well as possible need to travel to have diagnostic services. Patient voiced understanding. Patient seen on [employer] Video Visit platform. Location of patient: [place] I have communicated my name and active licensure. The patient's identity and physical location were verified at the time of this visit. Either the patient or their legal real estate representative has been informed of the risks and benefits of -- and alternatives to -- treatment through a remote evaluation and consents to proceed with the evaluation remotely. CC HPI: Chery was here on 03/11/24 for dyspareunia. Described the pain at the introitus and anterior part of vulva. [place] that something was rubbing. Described it as a sandpaper sensation. Vaginal cultures were negative. Ultrasound was normal, besides some free fluid in the peritoneal cavity. Was prescribed DHEA cream. Has not noticed a difference. Has a history of eczema and wondering if it can affect the vulva. ROS SAUSAGE SMOKER: + continued irritation around clitoris and introitus [...] eczema. Trial clobetasol. Reviewed not intended for extermination supervisor use. Weaning regimen reviewed. - Follow up in 2-3 weeks or sooner. If not resolved, consider biopsy of vulva. Elijah Lyman APRN.JEANNE Medical Decision Making: Problems: Low: Acute, uncomplicated illness or injury Data: Unique test result(s) reviewed: 1 Risk: Low: Low risk from testing/treatment Moderate: Drug management Medical Decision Making Level: [facility] History of Present illness Narrative* Elijah Lyman APRN.JEANNE - 03/30/2024 8:41 AM EDT OGI VIRTUAL VISIT Virtual limitations reviewed with patient, as well as possible need to travel to have diagnostic services. Patient voiced understanding. Patient seen on [employer] Video Visit platform. Location of patient: [place] I have communicated my name and active licensure. The patient's identity and physical location wereverified at the time of this visit. Either the patient or their legal real estate representative has been informed of the risks and benefits of -- and alternatives to -- treatment through a remote evaluation andconsents to proceed with the evaluation remotely. CC HPI: Chery was here on 03/11/24 for dyspareunia. Described the pain at the introitus and anterior part of vulva. [place] that something was rubbing. Described it as a sandpaper sensation. Vaginal cultures were negative. Ultrasound was normal, besides some free fluid in the peritoneal cavity. Was prescribed DHEA cream. Has not noticed a difference. Has a history of eczema and wondering if it can affect the vulva. ROS SAUSAGE SMOKER: + continued irritation around clitoris and introitus [...] eczema. Trial clobetasol. Reviewed not intended for assisted use. Weaning regimen reviewed. - Follow up in 2-3 weeks or sooner. If not resolved, consider biopsy of vulva. Eliajh Lyman APRN.CNP Medical Decision Making: Problems: Low: Acute, uncomplicated illness or injury Data: Unique test result(s) reviewed: 1 Risk: Low: Low risk from testing/treatment Moderate: Drug management Medical Decision Making Level: 3 - Low documented in this encounter[facility]-2024 NoteHNO ID: [id number] Author: MAIA LUDWIG MD Service: ? Author Type: Physician Type: Progress Notes Filed: 03/24/2024 09:34 Note Text: Chery Mckeon is a 23 year old female who presented for physiognomist ultrasound today. Encounter Diagnosis ICD-10-CM 1. Dyspareunia in female N94.10 Please see report under imaging tab. Maia Ludwig MD March 24, 2024 9:32 [facility]09-03-2024 History of Present illness Narrative * Maia Ludwig MD - 03/24/2024 9:32 AM EDT Chery Mckeon is a 23 year old female who presented for physiognomist ultrasound today. Encounter Diagnosis ICD-10-CM 1. Dyspareunia in female N94.10 Please see report under imaging tab. Maia Ludwig MD March 24, 2024 9:32 AM documented in this encounterMet[facility]08-21-2024 NoteHNO ID: [id number] Author: ELIJAH LYMAN APRN.CNP Service: ? Author Type: Nurse Practitioner Type: Progress Notes Filed: 03/11/2024 08:17 Note Text: Reading Efficiency Course Director offered: Patient declines. Chery Mckeon is a [...] OB History No obstetric history on file. 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 + dysuria after intercourse Expanded ROS: SAUSAGE SMOKER: + dyspareunia Allergies and current medication updated:Yes EXAM: BP 122/80 Wt 157 lb (71.2kg) LMP 02/28/2024 GENERAL: pleasant, female in no apparent distress HEENT: Normocephalic, atraumatic, mucus membranes moist, and no lesions CHEST: Normal inspiratory effort PELVIC: + erythema to bilateral clitoris, normal Bartholin's glands, urethra, Allendale's glands, no vulvar lesions, no cervical lesions, [...] NAAT - PELVIC US WHI Elijah Lyman APRN.FORESTRY BIOLOGY SPECIALIST Medical Decision Making: Problems: Moderate: New problem with uncertain prognosis Data: Unique test(s) ordered: 3+ Risk: Low: Low risk from testing/treatment Moderate: Drug management Medical Decision Making Level: 4 - [facility]08-[facility]-2024 History of Present illness Narrative* Elijah Lyman APRN.FORESTRY BIOLOGY SPECIALIST - 03/11/2024 7:38 AM EDT Reading Efficiency Course Director offered: Patient declines. Chery Mckeon is a [...] OB History No obstetric history on file. 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 + dysuria after intercourse Expanded ROS: SAUSAGE SMOKER: + dyspareunia Allergies and current medication updated:Yes EXAM: BP 122/80 Wt 157 lb (71.2kg) LMP 02/28/2024 GENERAL: pleasant, female in no apparent distress HEENT: Normocephalic, atraumatic, mucus membranes moist, and no lesions CHEST: Normal inspiratory effort PELVIC: + erythema to bilateral clitoris, normal Bartholin's glands, urethra, Allend[place]'s glands, no vulvar lesions, no cervical lesions, [...] Level: 4 - Moderate documented in this encounterF[facility] noteNo assessment information availableWSelect Medical Special[facility] Work Phone: Evaluation note* Diagnosis Dyspareunia in female- Primary Screen for STD (sexually transmitted disease) Screening examination for venereal disease Encounter for screening for malignant neoplasm of cervix Screening for malignant neoplasm of the cervix [facility]* Diagnosis Dyspareunia in female [facility]* Diagnosis Dyspareunia in female- Primary documented in this encounter [facility] CenterEvaluchrist[facility] note* Diagnosis Dyspareunia in female documented in this encounter [facility] CenterProgress note Author Maia Gan [facility] Note Date/Time February 09, 2025 11:4 3am [facility] [address] [place] [address], [address] [place] [address] OFFICE VISIT Date of Service: 02/09/25 MR#: [id number] Acct: [id number] Name: CHERY MCKEON Rep #: [id number] : 2000 Provider: Dr. Willian Gan MD Age/Sex: 24/F Location: [facility] [place] Status: Signed Intake Vital Signs 12/21/24 15:20 01/15/25 14:30 02/09/25 10:58 Height 5 ft 5 in 5 ft 5 in 5 ft 5 in Weight: 173 lb 2 oz BMI 28.8 BP 129/83 H Intake Visit Reasons: 22 wk ob Tentmaker Required: No Is patient in pain?: No Allergies No Known Allergies Allergy (Verified 02/09/25 11:01) Medications ?Medication ?Instructions ?Recorded ?Confirmed ?Type loratadine 10 mg tablet (Allergy 10 mg PO DAILY 02/09/25 History Relief (loratadine)) cholecalciferol (vitamin D3) 10 20 mcg PO QDAY 5 02/09/25 History mcg (400 unit) capsule docosahexaenoic acid 200 mg 1 mg PO DAILY 11/03/24 History capsule ( DHA) pyridoxine (vitamin B6) 10 mg 10 mg PO QDAY 11/03/24 0 02/09/25 History tablet levothyroxine 25 mcg tablet 50 mcg PO QDAY 11/19/24 History (Levo-T) ondansetron 4 mg disintegrating 4 mg PO Q6H PRN nausea and 11/19/24 02/09/25 Rx tablet vomiting #90 tabs famotidine 20 mg tablet (Pepcid) 20 mg PO BID #60 tabs 02/09/25 02/09/25 Rx promethazine 25 mg rectal 25 mg MT Q4-6H PRN nausea an d 02/09/25 02/09/25 Rx suppository vomiting #12 ea Last Menstrual Period: 09/16/24 Zika: Zika virus screening: Negative : No PFSH PFSH Surgical History [place] teeth removed S/P cholecystectomy Family History Grandfather [...] 1-2 times per week duration: 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 OB Visit JACI Calculator Estimated Delivery Date Method Current WG Current Estimate 07/01/25 Ultrasound #1 19w 5d Other Estimates 06/23/25 LMP (Certain) 20w 6d Expected Delivery Route/Plan Labor Preferences- CB/BF classes: [...] Date -?-?-?-?-?-?-?-?-?-?-?-?- EGA Weight BP Urine Prot -?-?-?-?-?-?-?-?-?-?-?-?- Glucose FHR FuHt Pres Dilation -?-?-?-?-?-?-?-?-?-?-?-?- Effaced St Visit Note 11/19/24 -?-?-?-?-?-?-?-?-?-?-?-?- 8w 0d 170 lb 6 oz (+6 oz) 130/86 -?-?-?-?-?-?-?--?-?-?-?-?- 167 -?-?-?-?-?-?-?-?-?-?-?-?- KW- CRL not cons with dates. JACI changed. declines NIPT. PAP done with [facility] reports normal. 12/21/24 -?-?-?-?-?-?-?-?-?-?-?-?- 12w 4d 165 lb (-5 lb) 126/86 Negative -?-?-?-?-?-?-?-?-?-?-?-?- Negative 158 -?-?-?-?-?-?-?-?-?-?-?-?- KW- CRL cons wi th new dates. labs reviewed. no vb/cramping. 5lb weight loss and still having Nausea. IV fluids ordered. anatomy US ordered. 01/15/25 -?-?-?-?-?-?-?-?-?-?-?-?- 16w 1d 171 lb 2 oz (+1 lb 2 oz) 124/85 Negative -?-?-?-?-?-?-?-?-?-?-?-?- Negative 146 -?-?-?-?-?-?-?-?-?-?-?-?- JV- no spotting but does have some cramping and rib pains. she was vomiting 9 times a day and is now finally feeling better. JV- no spotting but does hav e some cramping and rib pains. she was vomiting 9 times a day and is now finally feeling better. Check TSH next visit. 02/09/25 -?-?-?-?-?-?-?-?-?-?-?-?- 19w 5d 173 lb 2 oz (+3 lb 2 oz) 129/83 Negative -?-?-?-?-?-?-?-?-?-?-?-?- Negative 145 -?-?-?-?-?-?-?-?-?-?-?-?- SM- no vb lof go od fm discussed US findings ACOG First Trimester First Trimester: Discussed Second Trimester Second Trimester: Signs and Symptoms of Labor, Selecting a care provider, Reproductive Life Planning & Contreception, Care Planning, Depression/Anxiety and Intimate Partner Violence; Discussed Tobacco Cessation Third Trimester Third Trimester: Pain Management Plans, Labor support person(s), Immediate Larc, Signs and Symptoms of Preeclampsia, Feeding No , [place] Education and Family Medical Leave or Disability Forms Results POC Urinalysis 2 Dip (Clinic) Office Urine Glucose Negative Last Edit by Mechelle Johnson on 02/09/25 11:09 Office Urine Protein Negative Last Edit by Mechelle Johnson on 02/09/25 11:09 Coding Level of Care Code OB Routine Diagnoses Nausea and vomiting during O21.9 Supervision of high risk in first trimester O09.91 Trimester: first trimester 19 weeks gestation of Z3A.19 Weeks of gestation: 19 weeks Eczema L30.9 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 - Thyroid labs ordered w/NOB (6) Absent nasal bridge: Status: Acute Comment: possible absent nasal bone on US- fu scan scheduled and offered NIPT Orders: Orders POC Urinalysis 2 Dip (Clinic) Today Medications: New famotidine (Pepcid) 20 mg PO BID 60 tabs 6RF Refilled promethazine 25 mg MT Q4-6H PRN 12 ea 6RF nausea and vomiting 02/09/25 1143 <Electronically signed by Maia helton MD> Date _ Maia Gonzalezign Signature: Date (if applicable) CC: ~ [facility] Work Phone: Reason for referral (narrative)* Diagnostic Procedure Only (Routine) - Authorized Specialty Diagnoses / Procedures Referred By Contac t Referred To Contact [facility] Diagnoses Dyspareunia in female Procedures PELVIC US I US PELVIC NONOBSTETRIC REAL-TIME IMAGE COMPLETE Elijah Lyman APRN.CNP [address] [place] [address] [facility] [place] [place] [address] Referral ID Status Reason Start Date Expiration Date Visits Requested Visits Authorized [id number] Authorized Auto-Generat ed Referral 03/11/2024 03/11/2025 1 1 [facility]No reason for referral information [facility] Work Phone: Reason for visit Narrative* Diagnostic Procedure Only (Routine) - Closed Specialty Diagnoses / Procedures Referred By Contac t Referred To Contact [facility] Diagnoses Dyspareunia in female Procedures PELVIC US I US PELVIC NONOBSTETRIC REAL-TIME IMAGE Elijah Vargas APRN.CNP [address] [place] [address] [facility] [place] [address] Referral ID Status Reason Start Date Expiration Date V isits Requested Visits Authorized [id number] Closed Auto-Generate d Referral 03/11/2024 03/11/2025 1 1 [facility] Summary Purpose Family History Relationship Condition Age at Onset Recorded Date/T maría grandfather Malignant neoplasm of prostate Unknown grandmother Malignant neoplasm of colon Unknown Cerebrovascular accident (CVA) Unknown grandmother Dementia Unknown father Diabetes mellitus Unknown Myocardial infarction Unknown Malignant neoplasm of skin Unknown mother Cardiac disease Unknown Disorder of thyroid Unknown Advance Directives Advance Directive Response Recorded Date/ Time Living Will No November 05, 2015 4:30pm Power of Completion Supervisor No November 04 4:30pm Chief Complaint and [...] 2024 3:17p m Nausea and vomiting during Dec 3:17pm December 21, 2024 3:17p m Supervision of high-risk December 21, 2024 3:17pm Chief Complaint Admit Date PNOB nurse visit November 03, 2024 10: 07am NOB LMP 09/16November 19, 2024 8:42am 12wk ob December 21, 2024 3:17p m HYDRATION December 23, 2024 11:39 am Chief Complaint Admit Date PNOB nurse visit November 03, 2024 10: 07am NOB LMP 09/16November 19, 2024 8:42am 12wk ob December 21, 2024 3:17p m HYDRATION December 23, 2024 11:39 am hydration/antiemetics January 06, 2025 12 :28pm Chief Complaint Admit Date PNOB nurse visit November 03, 2024 10: 07am NOB LMP 09/16November 19, 2024 8:42am 12wk ob December 21, 2024 3:17p m HYDRATION December 23, 2024 11:39 am hydration/antiemetics January 06, 2025 12 :28pm 18wk ob January 15, 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 Reason for Visit Admit Date Supervision of high-risk November 03, 2024 10:07am Eczema November 19, 2024 8:42am Sharad's disease November 19, 2024 8:42am November 19, 2024 8:42am Supervision of high-risk November 192024 8:42am Eczema December 21, 2024 3:17p m Sharad's disease December 21, 2024 3:17p m Nausea and vomiting during Dec 3:17pm December 21, 2024 3:17p m Supervision of high-risk December 21, 2024 3:17pm Eczema January 15, 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, 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 Nausea and vomiting during Dec 2:22pm January 15, 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 Supervision of high-risk January 15, 2025 2:22pm Chief Complaint Admit Date PNOB nurse visit November 03, 2024 10: 07am NOB LMP 09/16November 19, 2024 8:42am 12wk ob December 21, 2024 3:17p m HYDRATION December 23, 2024 11:39 am hydration/antiemetics January 06, 2025 12 :28pm 18wk ob January 15, 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 20wk ob February 09, 2025 10:5 7am Reason for Visit Admit Date Supervision of high-risk November 03, 2024 10:07am Eczema November 19, 2024 8:42am Sharad's disease November 19, 2024 8:42am November 19, 2024 8:42am Supervision of high-risk November 192024 8:42am Eczema December 21, 2024 3:17p m Sharad's disease December 21, 2024 3:17p m Nausea and vomiting during Dec 3:17pm December 21, 2024 3:17p m Supervision of high-risk December 21, 2024 3:17pm Eczema January 15, 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, 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 Nausea and vomiting during Dec 2:22pm January 15, 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 Supervision of high-risk January 15, 2025 2:22pm 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, 2025 10:5 7am Eczema February 09, 2025 10:5 7am 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, 2025 10:5 7am Nausea and vomiting during Leandro y 2024 10:57am February 09, 2025 10:5 7am Supervision of high-risk February 09, 2025 10:57am Chief Complaint Admit Date PNOB nurse visit November 03, 2024 10: 07am NOB LMP 09/16November 19, 2024 8:42am 12wk ob December 21, 2024 3:17p m HYDRATION December 23, 2024 11:39 am hydration/antiemetics January 06, 2025 12 :28pm 18wk ob January 15, 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 20wk ob February 09, 2025 10:5 7am ABDOMINAL PAIN March 03, 2025 5: 32pm Chief Complaint Admit Date NOB LMP 09/16November 19, 2024 8:42am 12wk ob December 21, 2024 3:17p m HYDRATION December 23, 2024 11:39 am hydration/antiemetics January 06, 2025 12 :28pm 18wk ob January 15, 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 20wk ob February 09, 2025 10:5 7am ABDOMINAL PAIN March 03, 2025 5: 32pm ABDOMINAL PAIN March 03, 2025 11 :49pm 24wk ob March 11, 2025 3: 08pm Reason for Visit Admit Date Eczema November 19, 2024 8:42am Sharad's disease November 19, 2024 8:42am November 19, 2024 8:42am Supervision of high-risk November 192024 8:42am Eczema December 21, 2024 3:17p m Sharad's disease December 21, 2024 3:17p m Nausea and vomiting during Dec 3:17pm December 21, 2024 3:17p m Supervision of high-risk December 21, 2024 3:17pm Eczema January 15, 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, 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 Nausea and vomiting during Ismael e 2024 2:22pm January 15, 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 Supervision of high-risk January 15, 2025 2:22pm 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, 2025 10:5 7am Eczema February 09, 2025 10:5 7am 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, 2025 10:5 7am Nausea and vomiting during Leandro y 2024 10:57am February 09, 2025 10:5 7am Supervision of high-risk February 09, 2025 10:57am Absent nasal bridge March 03, 2025 5: 32pm Eczema March 03, 2025 5: 32pm 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, 2025 5: 32pm Nausea and vomiting during Aug ust 2024 5:32pm March 03, 2025 5: 32pm Supervision of high-risk Augus t 2024 5:32pm UTI in March 03, 2025 5: 32pm Absent nasal bridge March 11, 2025 3: 08pm Eczema March 11, 2025 3: 08pm Sharad's disease March 11, 2025 3: 08pm Nausea and vomiting during Feb 3:08pm March 11, 2025 3: 08pm Supervision of high-risk Augus t 2024 3:08pm UTI in March 11, 2025 3: 08pm Chief Complaint Admit Date 12wk ob December 21, 2024 3:17p m HYDRATION December 23, 2024 11:39 am hydration/antiemetics January 06, 2025 12 :28pm 18wk ob January 15, 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 20wk ob February 09, 2025 10:5 7am ABDOMINAL PAIN March 03, 2025 5: 32pm ABDOMINAL PAIN March 03, 2025 11 :49pm 24wk ob March 11, 2025 3: 08pm Nurse Visit for Urgency March 31, 2025 8:57am Reason for Visit Admit Date Eczema December 21, 2024 3:17p m Sharad's disease December 21, 2024 3:17p m Nausea and vomiting during Dec 3:17pm December 21, 2024 3:17p m Supervision of high-risk December 21, 2024 3:17pm Eczema January 15, 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, 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 Nausea and vomiting during Ismael e 2024 2:22pm January 15, 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 Supervision of high-risk January 15, 2025 2:22pm 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, 2025 10:5 7am Eczema February 09, 2025 10:5 7am 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, 2025 10:5 7am Nausea and vomiting during Leandro y 2024 10:57am February 09, 2025 10:5 7am Supervision of high-risk February 09, 2025 10:57am Absent nasal bridge March 03, 2025 5: 32pm Eczema March 03, 2025 5: 32pm 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, 2025 5: 32pm Nausea and vomiting during Feb 5:32pm March 03, 2025 5: 32pm Supervision of high-risk Augus t 2024 5:32pm UTI in March 03, 2025 5: 32pm Absent nasal bridge March 11, 2025 3: 08pm Eczema March 11, 2025 3: 08pm Sharad's disease March 11, 2025 3: 08pm Nausea and vomiting during Feb 3:08pm March 11, 2025 3: 08pm Supervision of high-risk Augus t 2024 3:08pm UTI in March 11, 2025 3: 08pm 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, 2025 8:57am Eczema March 31, 2025 8:57am Sharad's disease March 31, 2025 8:57am Nausea and vomiting during Sep tember 2024 8:57am March 31, 2025 8:57am Supervision of high-risk Marioe mber 2024 8:57am UTI in March 31, 2025 8:57am Chief Complaint Admit Date 12wk ob December 21, 2024 3:17p m HYDRATION December 23, 2024 11:39 am hydration/antiemetics January 06, 2025 12 :28pm 18wk ob January 15, 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 20wk ob February 09, 2025 10:5 7am ABDOMINAL PAIN March 03, 2025 5: 32pm ABDOMINAL PAIN March 03, 2025 11 :49pm 24wk ob March 11, 2025 3: 08pm Nurse Visit for Urgency March 31, 2025 8:57am NEEDS ORDER April 07, 2025 12:31pm 28 WK OB/GLUCOSE April 07, 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 Reason for Visit Admit Date Eczema December 21, 2024 3:17p m Sharad's disease December 21, 2024 3:17p m Nausea and vomiting during Dec 3:17pm December 21, 2024 3:17p m Supervision of high-risk December 21, 2024 3:17pm Eczema January 15, 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, 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 Nausea and vomiting during Dec 2:22pm January 15, 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 Supervision of high-risk January 15, 2025 2:22pm 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, 2025 10:5 7am Eczema February 09, 2025 10:5 7am 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, 2025 10:5 7am Nausea and vomiting during Leandro y 2024 10:57am February 09, 2025 10:5 7am Supervision of high-risk February 09, 2025 10:57am Absent nasal bridge March 03, 2025 5: 32pm Eczema March 03, 2025 5: 32pm 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, 2025 5: 32pm Nausea and vomiting during Feb 5:32pm March 03, 2025 5: 32pm Supervision of high-risk Augus t 2024 5:32pm UTI in March 03, 2025 5: 32pm Absent nasal bridge March 11, 2025 3: 08pm Eczema March 11, 2025 3: 08pm Sharad's disease March 11, 2025 3: 08pm Nausea and vomiting during Feb 3:08pm March 11, 2025 3: 08pm Supervision of high-risk Augus t 2024 3:08pm UTI in March 11, 2025 3: 08pm 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, 2025 8:57am Nausea and vomiting during Sep 2024 8:57am March 31, 2025 8:57am Supervision of high-risk Septe mber 2024 8:57am UTI in March 31, 2025 8:57am 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, 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 Eczema April 07, 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, 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 Nausea and vomiting during Sep 2024 12:48pm April 07, 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 Supervision of high-risk Septe mber 2024 12:48pm UTI in April 07, 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 Additional Source Comments INFORMATION SOURCE (unrecogn ized section and content) DATE CREATED AUTHOR 01/29/2018 [facility] DATE CREATED AUTHOR AUTHOR'S ORGANIZ ATION 04/25/2019 [facility] DATE CREATED AUTHOR AUTHOR'S ORGANIZ ATION 04/25/2019 [facility] DATE CREATED AUTHOR AUTHOR'S ORGANIZ ATION 03/30/2024 [facility] DATE CREATED AUTHOR AUTHOR'S ORGANIZ ATION 06/16/2024 [facility] DATE CREATED AUTHOR AUTHOR'S ORGANIZ ATION 02/20/2025 [facility] DATE CREATED AUTHOR AUTHOR'S ORGANIZ ATION [facility] Care Teams (unrecognized sec tion and content) Team Status: Active Member Role Status Dates Ángela GOMEZ PA-C Family Provider Active PATRICIA Lizarraga Primary Care Provider Active Team Status: Inactive Member Role Status Dates Dr. jO Ordonez MD Attending Provider, Referring Pr ovider Active PATRICIA Lizarraga Primary Care Provider Active Team Status: Active Member Role Status Dates PATRICIA Lizarraga Primary Care Provider Active Team Status: Inactive Member Role Status Dates PATRICIA Lizarraga Primary Care Provider Active Start: November 03, 2024 End: November 03, 2024 PATRICIA Lizarraga Referring Provider Active Start: November 03, 2024 End: November 03, 2024 Mechelle Francois GASOLINE CATALYST OPERATOR, GASOLINE CATALYST OPERATOR-C Attending Provider Active Start: November 03, 2024 End: November 03, 2024 Team Status: Inactive Member Role Status Dates Anna Marie Sales PA, PA Primary Care Provider Active Start: November 19, 2024 End: November 19, 2024 Anna Marie Sales PA, PA Referring Provider Active Start: November 19, 2024 End: November 19, 2024 Kehinde Anand CNM Attending Provider Active S tart: November 19, 2024 End: November 19, 2024 Team Status: Inactive Member Role Status Dates Anna Marie Sales PA, PA Primary Care Provider Active Start: November 19, 2024 End: November 19, 2024 Kehinde Anand CNM Attending Provider Active S tart: November 19, 2024 End: November 19, 2024 Kehinde Anand CNM Referring Provider Active S tart: November 19, 2024 End: November 19, 2024 Team Status: Inactive Member Role Status Dates Anna Marie Sales PA, PA Primary Care Provider Active Start: December 21, 2024 End: December 21, 2024 Anna Marie Sales PA, PA Referring Provider Active Start: December 21, 2024 End: December 21, 2024 Kehinde Anand CNM Attending Provider Active S tart: December 21, 2024 End: December 21, 2024 Team Status: Active Member Role Status Dates Anna Marie Sales PA, PA Primary Care Provider Active Start: December 21, 2024 Kehinde Anand CNM Attending Provider Active S tart: December 21, 2024 Kehinde Anand CNM Referring Provider Active S tart: December 21, 2024 Team Status: Inactive Member Role Status Dates Anna Marie Sales PA, PA Primary Care Provider Active Start: December 23, 2024 End: December 23, 2024 Kehinde Anand CNM Attending Provider Active S tart: December 23, 2024 End: December 23, 2024 Kehinde Anand CNM Referring Provider Active S tart: December 23, 2024 End: December 23, 2024 Team Status: Inactive Member Role Status Dates Anna Marie Sales PA, PA Primary Care Provider Active Start: December 21, 2024 End: December 21, 2024 Kehinde Anand CNM Attending Provider Active S tart: December 21, 2024 End: December 21, 2024 Kehinde Anand CNM Referring Provider Active S tart: December 21, 2024 End: December 21, 2024 Team Status: Inactive Member Role Status Dates Anna Marie Sales PA, PA Primary Care Provider Active Start: January 06, 2025 End: January 06, 2025 Dr. Maia Gan MD Attending Provider Active Start: January 06, 2025 End: January 06, 2025 Dr. Maia Gan MD Referring Provider Active Start: January 06, 2025 End: January 06, 2025 Team Status: Active Member Role/Relationship Status Dates Anna Marie Sales PA, PA Primary Care Provider Active Team Status: Inactive Member Role/Relationship Status Dates Anna Marie Sales PA, PA Primary Care Provider Active Start: November 03, 2024 End: November 03, 2024 Anna Marie Sales PA, PA Referring Provider Active Start: November 03, 2024 End: November 03, 2024 Mechelle Francois GASOLINE CATALYST OPERATOR, GASOLINE CATALYST OPERATOR-C Attending Provider Active Start: November 03, 2024 End: November 03, 2024 Team Status: Inactive Member Role/Relationship Status Dates Anna Marie Sales PA, PA Primary Care Provider Active Start: November 19, 2024 End: November 19, 2024 Anna Marie Sales PA, PA Referring Provider Active Start: November 19, 2024 End: November 19, 2024 Kehinde Anand CNM Attending Provider Active S tart: November 19, 2024 End: November 19, 2024 Team Status: Inactive Member Role/Relationship Status Dates Anna Marie Sales PA, PA Primary Care Provider Active Start: November 19, 2024 End: November 19, 2024 Kehinde Anand CNM Attending Provider Active S tart: November 19, 2024 End: November 19, 2024 Kehinde Anand CNM Referring Provider Active S tart: November 19, 2024 End: November 19, 2024 Team Status: Inactive Member Role/Relationship Status Dates Anna Marie Sales PA, PA Primary Care Provider Active Start: December 21, 2024 End: December 21, 2024 Anna Marie Sales PA, PA Referring Provider Active Start: December 21, 2024 End: December 21, 2024 Kehinde Anand CNM Attending Provider Active S tart: December 21, 2024 End: December 21, 2024 Team Status: Inactive Member Role/Relationship Status Dates Anna Marie Sales PA, PA Primary Care Provider Active Start: December 21, 2024 End: December 21, 2024 Kehinde Anand CNM Attending Provider Active S tart: December 21, 2024 End: December 21, 2024 Kehinde Anand CNM Referring Provider Active S tart: December 21, 2024 End: December 21, 2024 Team Status: Inactive Member Role/Relationship Status Dates Anna Marie Sales PA, PA Primary Care Provider Active Start: December 23, 2024 End: December 23, 2024 Kehinde Anand CNM Attending Provider Active S tart: December 23, 2024 End: December 23, 2024 Kehinde Anand CNM Referring Provider Active S tart: December 23, 2024 End: December 23, 2024 Team Status: Inactive Member Role/Relationship Status Dates Anna Marie Sales PA, PA Primary Care Provider Active Start: January 06, 2025 End: January 06, 2025 Dr. Maia Gan MD Attending Provider Active Start: January 06, 2025 End: January 06, 2025 Dr. Maia Gan MD Referring Provider Active Start: January 06, 2025 End: January 06, 2025 Team Status: Inactive Member Role/Relationship Status Dates Anna Marie Sales PA, PA Primary Care Provider Active Start: January 15, 2025 End: January 15, 2025 Anna Marie Sales PA, PA Referring Provider Active Start: January 15, 2025 End: January 15, 2025 Dr. Rita Rivas DO Attending Provider Activ e Start: January 15, 2025 End: January 15, 2025 Team Status: Inactive Member Role/Relationship Status Dates Anna Marie Sales PA, PA Primary Care Provider Active Start: February 09, 2025 End: February 09, 2025 Anna Marie Sales PA, PA Referring Provider Active Start: February 09, 2025 End: February 09, 2025 Dr. Maia Gan MD Attending Provider Active Start: February 09, 2025 End: February 09, 2025 Team Status: Inactive Member Role/Relationship Status Dates Anna Marie Sales PA, PA Primary Care Provider Active Start: February 18, 2025 End: February 18, 2025 Dr. Maia Gan MD Attending Provider Active Start: February 18, 2025 End: February 18, 2025 Team Status: Inactive Member Role/Relationship Status Dates Anna Marie Sales PA, PA Primary Care Provider Active Start: March 03, 2025 End: March 03, 2025 Dr. Rita Rivsa , Attending Provider Activ e Start: March 03, 2025 End: March 03, 2025 Dr. Rita Rivas , Referring Provider Activ e Start: March 03, 2025 End: March 03, 2025 Team Status: Inactive Member Role/Relationship Status Dates Anna Marie Sales PA, PA Primary Care Provider Active Start: November 19, 2024 End: November 19, 2024 Anna Marie Sales PA, PA Referring Provider Active Start: November 19, 2024 End: November 19, 2024 Kehinde Anand CNM Attending Provider Active S tart: November 19, 2024 End: November 19, 2024 Team Status: Inactive Member Role/Relationship Status Dates Anna Marie Sales PA, PA Primary Care Provider Active Start: November 19, 2024 End: November 19, 2024 Kehinde Anand CNM Attending Provider Active S tart: November 19, 2024 End: November 19, 2024 Kehinde Anand CNM Referring Provider Active S tart: November 19, 2024 End: November 19, 2024 Team Status: Inactive Member Role/Relationship Status Dates Anna Marie Sales PA, PA Primary Care Provider Active Start: December 21, 2024 End: December 21, 2024 Anna Marie Sales PA, PA Referring Provider Active Start: December 21, 2024 End: December 21, 2024 Kehinde Anand CNM Attending Provider Active S tart: December 21, 2024 End: December 21, 2024 Team Status: Inactive Member Role/Relationship Status Dates Anna Marie Sales PA, PA Primary Care Provider Active Start: December 21, 2024 End: December 21, 2024 Kehinde Anand CNM Attending Provider Active S tart: December 21, 2024 End: December 21, 2024 Kehinde Anand CNM Referring Provider Active S tart: December 21, 2024 End: December 21, 2024 Team Status: Inactive Member Role/Relationship Status Dates Anna Marie Sales PA, PA Primary Care Provider Active Start: December 23, 2024 End: December 23, 2024 Kehinde Anand CNM Attending Provider Active S tart: December 23, 2024 End: December 23, 2024 Kehinde Anand CNM Referring Provider Active S tart: December 23, 2024 End: December 23, 2024 Team Status: Inactive Member Role/Relationship Status Dates Anna Marie Sales PA, PA Primary Care Provider Active Start: January 06, 2025 End: January 06, 2025 Dr. Maia Gan MD Attending Provider Active Start: January 06, 2025 End: January 06, 2025 Dr. Maia Gan MD Referring Provider Active Start: January 06, 2025 End: January 06, 2025 Team Status: Inactive Member Role/Relationship Status Dates Anna Marie Sales PA, PA Primary Care Provider Active Start: January 15, 2025 End: January 15, 2025 Anna Marie Sales PA, PA Referring Provider Active Start: January 15, 2025 End: January 15, 2025 Dr. Rita Rivas DO Attending Provider Activ e Start: January 15, 2025 End: January 15, 2025 Team Status: Inactive Member Role/Relationship Status Dates Anna Marie Sales PA, PA Primary Care Provider Active Start: February 09, 2025 End: February 09, 2025 Anna Marie Sales PA, PA Referring Provider Active Start: February 09, 2025 End: February 09, 2025 Dr. Maia Gan MD Attending Provider Active Start: February 09, 2025 End: February 09, 2025 Team Status: Inactive Member Role/Relationship Status Dates Anna Marie Sales PA, PA Primary Care Provider Active Start: February 18, 2025 End: February 18, 2025 Dr. Maia Gan MD Attending Provider Active Start: February 18, 2025 End: February 18, 2025 Team Status: Inactive Member Role/Relationship Status Dates Anna Marie Sales PA, PA Primary Care Provider Active Start: March 03, 2025 End: March 03, 2025 Dr. Rita Rivas DO Attending Provider Activ e Start: March 03, 2025 End: March 03, 2025 Dr. Rita Rivas DO Referring Provider Activ e Start: March 03, 2025 End: March 03, 2025 Team Status: Active Member Role/Relationship Status Dates Anna Marie Sales PA, PA Primary Care Provider Active Start: March 03, 2025 Dr. Rita Rivas DO Attending Provider Activ e Start: March 03, 2025 Dr. Rita Rivas DO Referring Provider Activ e Start: March 03, 2025 Dr. Rita Rivas , DO Other Provider Active Start: March 03, 2025 Team Status: Inactive Member Role/Relationship Status Dates Anna Marie Sales PA, PA Primary Care Provider Active Start: March 11, 2025 End: March 11, 2025 Anna Marie Sales PA, PA Referring Provider Active Start: March 11, 2025 End: March 11, 2025 Kehinde Anand CNM Attending Provider Active S tart: March 11, 2025 End: March 11, 2025 Team Status: Active Member Role/Relationship Status Dates Anna Marie Sales PA, PA Primary Care Provider Active Start: March 11, 2025 Kehinde Anand CNM Attending Provider Active S tart: March 11, 2025 Kehinde Anand CNM Referring Provider Active S tart: March 11, 2025 Team Status: Inactive Member Role/Relationship Status Dates Anna Marie Sales PA, PA Primary Care Provider Active Start: March 11, 2025 End: March 11, 2025 Kehinde Anand CNM Attending Provider Active S tart: March 11, 2025 End: March 11, 2025 Kehinde Anand CNM Referring Provider Active S tart: March 11, 2025 End: March 11, 2025 Team Status: Inactive Member Role/Relationship Status Dates Anna Marie Sales PA, PA Primary Care Provider Active Start: December 21, 2024 End: December 21, 2024 Anna Marie Sales PA, PA Referring Provider Active Start: December 21, 2024 End: December 21, 2024 Kehinde Anand CNM Attending Provider Active S tart: December 21, 2024 End: December 21, 2024 Team Status: Inactive Member Role/Relationship Status Dates Anna Marie Sales PA, PA Primary Care Provider Active Start: December 21, 2024 End: December 21, 2024 Kehinde Anand CNM Attending Provider Active S tart: December 21, 2024 End: December 21, 2024 Kehinde Anand CNM Referring Provider Active S tart: December 21, 2024 End: December 21, 2024 Team Status: Inactive Member Role/Relationship Status Dates Anna Marie Sales PA, PA Primary Care Provider Active Start: December 23, 2024 End: December 23, 2024 Kehinde Anand CNM Attending Provider Active S tart: December 23, 2024 End: December 23, 2024 Kehinde Anand CNM Referring Provider Active S tart: December 23, 2024 End: December 23, 2024 Team Status: Inactive Member Role/Relationship Status Dates Anna Marie Sales PA, PA Primary Care Provider Active Start: January 06, 2025 End: January 06, 2025 Dr. Maia Gan MD Attending Provider Active Start: January 06, 2025 End: January 06, 2025 Dr. Maia Gan MD Referring Provider Active Start: January 06, 2025 End: January 06, 2025 Team Status: Inactive Member Role/Relationship Status Dates Anna Marie Sales PA, PA Primary Care Provider Active Start: January 15, 2025 End: January 15, 2025 Anna Marie Sales PA, PA Referring Provider Active Start: January 15, 2025 End: January 15, 2025 Dr. Rita Rivas DO Attending Provider Activ e Start: January 15, 2025 End: January 15, 2025 Team Status: Inactive Member Role/Relationship Status Dates Anna Marie Sales PA, PA Primary Care Provider Active Start: February 09, 2025 End: February 09, 2025 Anna Marie Sales PA, PA Referring Provider Active Start: February 09, 2025 End: February 09, 2025 Dr. Maia Gan MD Attending Provider Active Start: February 09, 2025 End: February 09, 2025 Team Status: Inactive Member Role/Relationship Status Dates Anna Marie Sales PA, PA Primary Care Provider Active Start: February 18, 2025 End: February 18, 2025 Dr. Maia Gan MD Attending Provider Active Start: February 18, 2025 End: February 18, 2025 Team Status: Inactive Member Role/Relationship Status Dates Anna Marie Sales PA, PA Primary Care Provider Active Start: March 03, 2025 End: March 03, 2025 Dr. Rita Rivas DO Attending Provider Activ e Start: March 03, 2025 End: March 03, 2025 Dr. Rita Rivas DO Referring Provider Activ e Start: March 03, 2025 End: March 03, 2025 Team Status: Active Member Role/Relationship Status Dates Anna Marie Sales PA, PA Primary Care Provider Active Start: March 03, 2025 Dr. Rita Rivas DO Attending Provider Activ e Start: March 03, 2025 Dr. Rita Rivas DO Referring Provider Activ e Start: March 03, 2025 Dr. Rita Rivas , Other Provider Active Start: March 03, 2025 Team Status: Inactive Member Role/Relationship Status Dates Anna Marie Sales PA, PA Primary Care Provider Active Start: March 11, 2025 End: March 11, 2025 Anna Marie Sales PA, PA Referring Provider Active Start: March 11, 2025 End: March 11, 2025 Kehinde Anand CNM Attending Provider Active S tart: March 11, 2025 End: March 11, 2025 Team Status: Inactive Member Role/Relationship Status Dates Anna Marie Sales PA, PA Primary Care Provider Active Start: March 11, 2025 End: March 11, 2025 Kehinde Anand CNM Attending Provider Active S tart: March 11, 2025 End: March 11, 2025 Kehinde Anand CNM Referring Provider Active S tart: March 11, 2025 End: March 11, 2025 Team Status: Inactive Member Role/Relationship Status Dates Anna Marie Sales PA, PA Primary Care Provider Active Start: March 31, 2025 End: March 31, 2025 Anna Marie Sales PA, PA Referring Provider Active Start: March 31, 2025 End: March 31, 2025 Mechelle Francois GASOLINE CATALYST OPERATOR, GASOLINE CATALYST OPERATOR-C Attending Provider Active Start: March 31, 2025 End: March 31, 2025 Team Status: Active Member Role/Relationship Status Dates Anna Marie Sales PA, PA Primary care physician Active Team Status: Inactive Member Role/Relationship Status Dates Anna Marie Sales PA, PA Primary care physician Active Start: December 21, 2024 End: December 21, 2024 Anna Marie Sales PA, PA Referring Provider Active Start: December 21, 2024 End: December 21, 2024 Kehinde Anand CNM Attending physician Active Start: December 21, 2024 End: December 21, 2024 Team Status: Inactive Member Role/Relationship Status Dates Anna Marie Sales PA, PA Primary care physician Active Start: December 21, 2024 End: December 21, 2024 Kehinde Anand CNM Attending physician Active Start: December 21, 2024 End: December 21, 2024 Kehinde Anand CNM Referring Provider Active S tart: December 21, 2024 End: December 21, 2024 Team Status: Inactive Member Role/Relationship Status Dates Anna Marie Sales PA, PA Primary care physician Active Start: December 23, 2024 End: December 23, 2024 Kehinde Anand CNM Attending physician Active Start: December 23, 2024 End: December 23, 2024 Kehinde Anand CNM Referring Provider Active S tart: December 23, 2024 End: December 23, 2024 Team Status: Inactive Member Role/Relationship Status Dates Anna Marie Sales PA, PA Primary care physician Active Start: January 06, 2025 End: January 06, 2025 Dr. Maia Gan MD Attending physician Active Start: January 06, 2025 End: January 06, 2025 Dr. Maia Gan MD Referring Provider Active Start: January 06, 2025 End: January 06, 2025 Team Status: Inactive Member Role/Relationship Status Dates Anna Marie Sales PA, PA Primary care physician Active Start: January 15, 2025 End: January 15, 2025 Anna Marie Sales PA, PA Referring Provider Active Start: January 15, 2025 End: January 15, 2025 Dr. Rita Rivas DO Attending physician Acti ve Start: January 15, 2025 End: January 15, 2025 Team Status: Inactive Member Role/Relationship Status Dates Anna Marie Sales PA, PA Primary care physician Active Start: February 09, 2025 End: February 09, 2025 Anna Marie Sales PA, PA Referring Provider Active Start: February 09, 2025 End: February 09, 2025 Dr. Maia Gan MD Attending physician Active Start: February 09, 2025 End: February 09, 2025 Team Status: Inactive Member Role/Relationship Status Dates Anna Marie Sales PA, PA Primary care physician Active Start: February 18, 2025 End: February 18, 2025 Dr. Maia Gan MD Attending physician Active Start: February 18, 2025 End: February 18, 2025 Team Status: Inactive Member Role/Relationship Status Dates Anna Marie Sales PA, PA Primary care physician Active Start: March 03, 2025 End: March 03, 2025 Dr. Rita Rivas DO Attending physician Acti ve Start: March 03, 2025 End: March 03, 2025 Dr. Rita Rivas DO Referring Provider Activ e Start: March 03, 2025 End: March 03, 2025 Team Status: Active Member Role/Relationship Status Dates Anna Marie Sales PA, PA Primary care physician Active Start: March 03, 2025 Dr. Rita Rivas DO Attending physician Acti ve Start: March 03, 2025 Dr. Rita Rivas DO Referring Provider Activ e Start: March 03, 2025 Dr. Rita Rivas DO Nurse Practitioner Activ e Start: March 03, 2025 Team Status: Inactive Member Role/Relationship Status Dates Anna Marie Darlinger PA, PA Primary care physician Active Start: March 11, 2025 End: March 11, 2025 Anna Marie Sales PA, PA Referring Provider Active Start: March 11, 2025 End: March 11, 2025 Kehinde Anand CNM Attending physician Active Start: March 11, 2025 End: March 11, 2025 Team Status: Inactive Member Role/Relationship Status Dates Anna Marie Darlinger PA, PA Primary care physician Active Start: March 11, 2025 End: March 11, 2025 Kehinde Anand CNM Attending physician Active Start: March 11, 2025 End: March 11, 2025 Kehinde Anand CNM Referring Provider Active S tart: March 11, 2025 End: March 11, 2025 Team Status: Inactive Member Role/Relationship Status Dates Anna Marie Darlinger PA, PA Primary care physician Active Start: March 31, 2025 End: March 31, 2025 Anna Marie Sales PA, PA Referring Provider Active Start: March 31, 2025 End: March 31, 2025 Mechelle Francois GASOLINE CATALYST OPERATOR, GASOLINE CATALYST OPERATOR-C Attending physician Active Start: March 31, 2025 End: March 31, 2025 Team Status: Active Member Role/Relationship Status Dates Anna Marie Sales PA, PA Primary care physician Active Start: March 31, 2025 Mechelle Francois GASOLINE CATALYST OPERATOR, GASOLINE CATALYST OPERATOR-C Attending physician Active Start: March 31, 2025 Mechelle Francois GASOLINE CATALYST OPERATOR, GASOLINE CATALYST OPERATOR-C Referring Provider Active Start: March 31, 2025 Team Status: Active Member Role/Relationship Status Dates Anna Marie Sales PA, PA Primary care physician Active Start: April 07, 2025 Dr. Rita Rivas DO Attending physician Active Start: March Dr. Rita Rivas DO Referring Provider Active Start: March Team Status: Inactive Member Role/Relationship Status Dates PATRICIA Lizarraga Primary care physician Active Start: April 07, 2025 End: April 07, 2025 PATRCIIA Lizarraga Referring Provider Active Start: April 07, 2025 End: April 07, 2025 Mechelle Francois NP, GASOLINE CATALYST OPERATOR-C Attending physician Active Start: April 07, 2025 End: April 07, 2025 Goals (unrecognized section and content) Type Care Experience svdLabor Preferences -CB/BF classes: @PPClabor support person: Chitra intervention preferences: []pain management options preferred: epidural if requestedcut cord/dad catch: maybebreastfeeding: yesPP control planned: []discussed possible routes of delivery and associated risks: []special requests: [] Source Comments (unrecognize d section and content) In the event this informatio n is protected by the Federal Confidentiality of Alcohol and Drug Abuse Patient Records regulations: The Federal rules restrict any use of the information to criminally investigate or prosecute any alcohol or drug abuse patient.[facility] Center[facility] the event this information is protected by the Federal Confidentiality of Alcohol and Drug Abuse Patient Records regulations: The Federal rules restrict any use of the information to criminally investigate or prosecute any alcohol or drug abuse patient.[facility] Center[facility] the event this information is protected by the Federal Confidentiality of Alcohol and Drug Abuse Patient Records regulations: The Federal rules restrict any use of the information to criminally investigate or prosecute any alcohol or drug abuse patient.[facility] Center[facility] the event this information is protected by the Federal Confidentiality of Alcohol and Drug Abuse Patient Records regulations: The Federal rules restrict any use of the information to criminally investigate or prosecute any alcohol or drug abuse patient.[facility] Reason for Visit (unrecogniz ed section and [...] BE BASED ON THE PRIMARY CLINICAL RECORDS. [facility]. provides no warranty or guarantee of the accuracy or completeness of information in this document.
== END | disposition home or self-care (01) ==
LOC: LAB 12:32
PROVIDERS: Nurse Practitioner Women's Health; PCP Physician Assistant; Referring Provider Obstetrics & Gynecology; Visit Provider Obstetrics & Gynecology
DX: O09.91 Supervision of high risk pregnancy, unspecified, first trimester (principal); Z3A.00 Weeks of gestation of pregnancy not specified; Z13.1 Encounter for screening for diabetes mellitus
CPT/HCPCS: 36415; 82950; 85025; 86703; 86780; 86850; 86900; 86901; 87086; 87088

== ENCOUNTER → 2025-04-20 | Outpatient (CLI) | payer MEDICAID, SELFPAY ==
--- OUTSIDE RECORDS SUMMARY | 2025-02-18 12:56 | XMS RPT_ITS ---
Author Name Auto Generated Organization [facility] Care Team Providers Care Blueprint Developer Name Role Phone JULIANNA ANSARI Attending Unavailable MABLE MANN Primary Care Unavailable KEHINDE ANAND Referring Unavailable BISHNU MORENO Attending Unavailable MABLE MANN Primary Care Unavailable KEHINDE ANAND Referring Unavailable PROBLEMS No Problem Records Found PROCEDURES No Procedure Records Found RESULTS COMPREHENSIVE METABOLIC PANEL Collected : 06/12/2024 10:46 AM Status: F Source: [facility] TYPE CODE TESTS RESULT OUT OF RANGE REFERENCE UNITS LAB [id number] GLUCOSE 89 Normal 65-99 mg/dL Result Comment: Fasting reference interval LAB [id number] UREA NITROGEN (BUN) 12 Normal 7-25 mg/dL LAB [id number] CREATININE 0.70 Normal 0.50-0.96 mg/dL LAB [id number] EGFR 125 Normal > OR = 60 mL/min/1 .73m2 LAB [id number] BUN/CREATININE RATIO SEE NOTE: 01-10 (calc) Result Comment: Not Reported : BUN and Creatinine are within reference range. LAB [id number] SODIUM 138 Normal 135-146 mmol/L LAB [id number] POTASSIUM 4.1 Normal 3.5-5.3 mmol/L LAB [id number] CHLORIDE 106 Normal 98-110 mmol/L LAB [id number] CARBON DIOXIDE 24 Normal 20-32 mmol/L LAB [id number] CALCIUM 9.9 Normal 8.6-10.2 mg/dL LAB [id number] PROTEIN, TOTAL 6.8 Normal 6.1-8.1 g/dL LAB [id number] ALBUMIN 4.6 Normal 3.6-5.1 g/dL LAB [id number] GLOBULIN 2.2 Normal 1.9-3.7 g/dL (calc) LAB [id number] ALBUMIN/GLOBUL IN RATIO 2.1 Normal 1.0-2.5 (calc) LAB [id number] BILIRUBIN, TOTAL 0.4 Normal 0.2-1.2 mg/dL LAB [id number] ALKALINE PHOSPHATASE 47 Normal 31-125 U/L LAB [id number] AST 19 Normal 10-30 U/L LAB [id number] ALT 16 Normal 6-29 U/L Performed By: #### 6399, 102 31, 899, 866 #### [facility] [address] [facility], [address] [place] [address] Personal Caregiver: Jimbo Sal MD CBC (INCLUDES DIFF/PLT) Collected: 05/23 10:46 AM Status: F Source: [facility] TYPE CODE TESTS RESULT OUT OF RANGE REFERENCE UNITS LAB [id number] WHITE BLOOD CELL COUNT 9.4 Normal 3.8-10.8 Thousand /uL LAB [id number] RED BLOOD CELL COUNT 4.58 Normal 3.80-5.10 Million/ uL LAB [id number] HEMOGLOBIN 14.1 Normal 11.7-15.5 g/dL LAB [id number] HEMATOCRIT 41.9 Normal 35.0-45.0 % LAB [id number] MCV 91.5 Normal 80.0-100.0 fL LAB [id number] MCH 30.8 Normal 27.0-33.0 pg LAB [id number] MCHC 33.7 Normal 32.0-36.0 g/dL Result Comment: For adults, a slight decrease in the calculated MCHC value (in the range of 30 to 32 g/dL) is most likely not clinically significant; however, it should be interpreted with caution in correlation with other red cell parameters and the patient's clinical condition. LAB [id number] RDW 12.0 Normal 11.0-15.0 % LAB [id number] PLATELET COUNT 401 High 140-400 Thousand /uL LAB [id number] MPV 9.4 Normal 7.5-12.5 fL LAB [id number] ABSOLUTE NEUTROPHILS 6871 Normal 9019-4355 cells/uL LAB [id number] ABSOLUTE LYMPHOCYTES 1645 Normal 850-3900 cells/uL LAB [id number] ABSOLUTE MONOCYTES 752 Normal 200-950 cells/uL LAB [id number] ABSOLUTE EOSINOPHILS 94 Normal 15-500 cells/uL LAB [id number] ABSOLUTE BASOPHILS 38 Normal 0-200 cells/uL LAB [id number] NEUTROPHILS 73.1 Normal % LAB [id number] LYMPHOCYTES 17.5 Normal % LAB [id number] MONOCYTES 8.0 Normal % LAB [id number] EOSINOPHILS 1.0 Normal % LAB [id number] BASOPHILS 0.4 Normal % Performed By: #### 6399, 102 31, 423, 866 #### [facility] [address], [address] [place] [address] Personal Caregiver: Jimbo Sal MD FERRITIN Collected: 4 10:46 AM Status: F Source: [facility] TYPE CODE TESTS RESULT OUT OF RANGE REFERENCE UNITS LAB [id number] FERRITIN 19 Normal 16-154 ng/mL Performed By: #### 6399, 102 31, 595, 866 #### [facility] [address], [address] [place] [address] Personal Caregiver: Jimbo Sal MD T4, FREE Collected: 4 10:46 AM Status: F Source: [facility] TYPE CODE TESTS RESULT OUT OF RANGE REFERENCE UNITS LAB [id number] T4, FREE 1.3 Normal 0.8-1.8 ng/dL Performed By: #### 6399, 102 31, 156, 866 #### [facility] [address], [address] [place] [address] Personal Caregiver: Jimbo Sal MD TSH Collected: 4 10:46 AM Status: F Source: [facility] TYPE CODE TESTS RESULT OUT OF RANGE REFERENCE UNITS LAB [id number] TSH 1.71 Normal mIU/L Result Comment: Reference Ra nge > or = 20 Years 0.40-4.50 Ranges First trimester 0.26-2.66 Second trimester 0.55-2.73 Third trimester 0.43-2.91 Performed By: #### 6399, 102 31, 847, 866 #### [facility] [address], [address] [place] [address] Personal Caregiver: Jimbo Sal MD ALLERGIES No Allergies Records Found ENCOUNTERS ADMIT/DISCHARGE ACCOUNT NUMBER ADMITTING ENCOUNTER CLASS LOCATION SOURCE 02/18/2025/02/18/2025 [id number] Ambulatory [facility] 02/04/2025/02/04/2025 [id number] Ambulatory [place] [facility]:[facility] PAYERS ENCOUNTER GUARANTOR PAYER SUBSCRIBER SOURCE 02/18/2025 CHERY MCKEONDOB: [place], [place] [address]Wmy: ~[phone] (HP) [place] MEDICA[place] Number: [id number] Date: CHERY GRANGERB: [id number] [place] [address] 02/04/2025 CHERY MCKEONDOB: [place]ACKIE [place], [place] [address]Jkd: ~([phone] (HP) [place] Insurance:[place] MEDICAIDPolicy Number: [id number] Date: CHERY GRANGERB: [id number] JACKIE ASHLEY [address]
--- OUTSIDE RECORDS SUMMARY | 2025-02-18 12:56 | XMS RPT_ITS ---
Author Name Auto Generated Organization [facility] Care Team Providers Care Mill Worker Name Role Phone JULIANNA ANSARI Attending Unavailable MABLE MANN Primary Care Unavailable KEHINDE ANAND Referring Unavailable BISHNU MORENO Attending Unavailable MABLE MANN Primary Care Unavailable KEHINDE ANAND Referring Unavailable PROBLEMS No Problem Records Found PROCEDURES No Procedure Records Found RESULTS COMPREHENSIVE METABOLIC PANEL Collected : 06/12/2024 10:46 AM Status: F Source: [facility] TYPE CODE TESTS RESULT OUT OF RANGE REFERENCE UNITS LAB [id number] GLUCOSE 89 Normal 65-99 mg/dL Result Comment: Fasting reference interval LAB [id number] UREA NITROGEN (BUN) 12 Normal 7-25 mg/dL LAB [id number] CREATININE 0.70 Normal 0.50-0.96 mg/dL LAB [id number] EGFR 125 Normal > OR = 60 mL/min/1 .73m2 LAB [id number] BUN/CREATININE RATIO SEE NOTE: 01-10 (calc) Result Comment: Not Reported : BUN and Creatinine are within reference range. LAB [id number] SODIUM 138 Normal 135-146 mmol/L LAB [id number] POTASSIUM 4.1 Normal 3.5-5.3 mmol/L LAB [id number] CHLORIDE 106 Normal 98-110 mmol/L LAB [id number] CARBON DIOXIDE 24 Normal 20-32 mmol/L LAB [id number] CALCIUM 9.9 Normal 8.6-10.2 mg/dL LAB [id number] PROTEIN, TOTAL 6.8 Normal 6.1-8.1 g/dL LAB [id number] ALBUMIN 4.6 Normal 3.6-5.1 g/dL LAB [id number] GLOBULIN 2.2 Normal 1.9-3.7 g/dL (calc) LAB [id number] ALBUMIN/GLOBUL IN RATIO 2.1 Normal 1.0-2.5 (calc) LAB [id number] BILIRUBIN, TOTAL 0.4 Normal 0.2-1.2 mg/dL LAB [id number] ALKALINE PHOSPHATASE 47 Normal 31-125 U/L LAB [id number] AST 19 Normal 10-30 U/L LAB [id number] ALT 16 Normal 6-29 U/L Performed By: #### 6399, 102 31, 899, 866 #### [facility] [address] [facility], [address] [place] [address] Paste Up Artist Apprentice: Jimbo Sal MD CBC (INCLUDES DIFF/PLT) Collected: 05/23 10:46 AM Status: F Source: [employer] TYPE CODE TESTS RESULT OUT OF RANGE REFERENCE UNITS LAB [id number] WHITE BLOOD CELL COUNT 9.4 Normal 3.8-10.8 Thousand /uL LAB [id number] RED BLOOD CELL COUNT 4.58 Normal 3.80-5.10 Million/ uL LAB [id number] HEMOGLOBIN 14.1 Normal 11.7-15.5 g/dL LAB [id number] HEMATOCRIT 41.9 Normal 35.0-45.0 % LAB [id number] MCV 91.5 Normal 80.0-100.0 fL LAB [id number] MCH 30.8 Normal 27.0-33.0 pg LAB [id number] MCHC 33.7 Normal 32.0-36.0 g/dL Result Comment: For adults, a slight decrease in the calculated MCHC value (in the range of 30 to 32 g/dL) is most likely not clinically significant; however, it should be interpreted with caution in correlation with other red cell parameters and the patient's clinical condition. LAB [id number] RDW 12.0 Normal 11.0-15.0 % LAB [id number] PLATELET COUNT 401 High 140-400 Thousand /uL LAB [id number] MPV 9.4 Normal 7.5-12.5 fL LAB [id number] ABSOLUTE NEUTROPHILS 6871 Normal 4745-1914 cells/uL LAB [id number] ABSOLUTE LYMPHOCYTES 1645 Normal 850-3900 cells/uL LAB [id number] ABSOLUTE MONOCYTES 752 Normal 200-950 cells/uL LAB [id number] ABSOLUTE EOSINOPHILS 94 Normal 15-500 cells/uL LAB [id number] ABSOLUTE BASOPHILS 38 Normal 0-200 cells/uL LAB [id number] NEUTROPHILS 73.1 Normal % LAB [id number] LYMPHOCYTES 17.5 Normal % LAB [id number] MONOCYTES 8.0 Normal % LAB [id number] EOSINOPHILS 1.0 Normal % LAB [id number] BASOPHILS 0.4 Normal % Performed By: #### 6399, 102 31, 236, 866 #### [facility] [address], [address] [place] [address] Paste Up Artist Apprentice: Jimbo Sal MD FERRITIN Collected: 4 10:46 AM Status: F Source: [facility] TYPE CODE TESTS RESULT OUT OF RANGE REFERENCE UNITS LAB [id number] FERRITIN 19 Normal 16-154 ng/mL Performed By: #### 6399, 102 31, 379, 866 #### [facility] [address], [address] [place] [address] Paste Up Artist Apprentice: Jimbo Sal MD T4, FREE Collected: 4 10:46 AM Status: F Source: [facility] TYPE CODE TESTS RESULT OUT OF RANGE REFERENCE UNITS LAB [id number] T4, FREE 1.3 Normal 0.8-1.8 ng/dL Performed By: #### 6399, 102 31, 560, 866 #### [facility] [address], [address] [place] [address] Paste Up Artist Apprentice: Jimbo Sal MD TSH Collected: 4 10:46 AM Status: F Source: [facility] TYPE CODE TESTS RESULT OUT OF RANGE REFERENCE UNITS LAB [id number] TSH 1.71 Normal mIU/L Result Comment: Reference Ra nge > or = 20 Years 0.40-4.50 Ranges First trimester 0.26-2.66 Second trimester 0.55-2.73 Third trimester 0.43-2.91 Performed By: #### 6399, 102 31, 348, 866 #### [facility] [address], [address] [place] [address] Paste Up Artist Apprentice: Jimbo Sal MD ALLERGIES No Allergies Records Found ENCOUNTERS ADMIT/DISCHARGE ACCOUNT NUMBER ADMITTING ENCOUNTER CLASS LOCATION SOURCE 02/18/2025/02/18/2025 [id number] Ambulatory [facility] 02/04/2025/02/04/2025 [id number] Ambulatory [facility] PAYERS ENCOUNTER GUARANTOR PAYER SUBSCRIBER SOURCE 02/18/2025 CHERY MCKEONDOB: [place], [place] [address]Ehy: ~([phone] (HP) Primary Insurance:[place] MEDICAIDPolicy Number: [id number] Date: CHERY GRANGERB: [id number] [place] [address] 02/04/2025 CHERY MCKEONDOB: JACKIE ASHLEY [place], [place] [address]Urc: ~(330 (HP) Primary Insurance:[place] MEDICAIDPolicy Number: [id number] Date: CHERY GRANGERB: [id number] JACKIE ASHLEY [address]
[2025-04-20 07:44] LABS: Glucose GTT-Gestation. Fasting 89 mg/dL (<105)
== END | disposition home or self-care (01) ==
LOC: LAB 07:10
PROVIDERS: PCP Physician Assistant; Referring Provider Nurse Practitioner Women's Health; Visit Provider Nurse Practitioner Women's Health
DX: Z13.1 Encounter for screening for diabetes mellitus (principal)
CPT/HCPCS: 36415; 82951; 82952

== ENCOUNTER → 2025-05-28 | Outpatient (CLI) | payer MEDICAID, SELFPAY ==
--- NOTE | 2025-05-28 17:56 | US_ITS ---
PROCEDURE: OB LIMITED WITH BIOMETRICS 05/28/2025 REASON FOR EXAM: GROWTH TECHNIQUE: Procedure Code: [id number] Modality: US Procedure: OB LIMITED WITH BIOMETRICS COMPARISON: None FINDINGS LMP: September 24, 2024. Number: 1 Position: Vertex Placental Position: Anterior and not low-lying Placental Abnormalities: No evidence of previa. DIMENSIONS: Biparietal Diameter: 8.9 cm:/36 weeks and 0 days: 78 percentile Head Circumference: 30.9 cm: 34 weeks and 3 days: 8 percentile/ Abdominal Circumference: 31.5 cm: 35 weeks and 3 days: 67 percentile/ Femur Length: 6.9 cm: 35 weeks and 3 days: 51st percentile./ ESTIMATED WEIGHT: 2742 g plus/-411 g ESTIMATED WEIGHT PERCENTILE (24+ weeks): 63rd ESTIMATED GESTATIONAL AGE: Baseline: 35 weeks and 1 day By Ultrasound: 35 weeks and 0 days ESTIMATED DATE OF DELIVERY: Baseline: July 12, 2025 By Ultrasound: April 13, 2025 BIOPHYSICAL ASSESSMENT: Amniotic Fluid Volume: 5.5 cm Amniotic Fluid Index: 12.8 cm (8-24 cm normal range) Cardiac Motion: 153 beats per minute (average) Trunk and Limb Motion: Present. MATERNAL ANATOMY: Adnexa: Neither maternal ovary is successfully identified. US/OB Limited With Biometrics IMPRESSION: Single live intrauterine gestation with a mean gestational age of 35 weeks. Reading Location: [place] [id number]
--- OUTSIDE RECORDS SUMMARY | 2025-05-28 17:57 | XMS RPT_ITS | CCD ---
Author Organization [facility] Care Team Providers Care Project Engineering Manager Name Role Phone JENY, ÁNGELA Unavailable Unavailable JENY, ÁNGELA Unavailable Unavailable JENY, ÁNGELA Unavailable Unavailable [...] PA-C Unavailable Dr. Oj Ordonez MD Unavailable [phone] Dermatology Provider Unavailable Unavailable Azul SMITH, Dr. Natalia Colindres. Unavailable ENT Provider Unavailable Unavailable Ady SMITH, Dr. Pablo Nielsen Unavailable [phone] Lloyd Pulido MD Unavailable Elisa BRADYN, Kristin Unavailable Robby SMITH, Farshad Parada Unavailable Maya Maxwell MA Unavailable Unavailable Gogoi (scribe), Hemanta Unavailable Unavaila Irene Batista LPN Unavailable Unavailable [place] JUAN, Ángela D Unavailable Rich MARTINEZ, Frederic Noland Unavailable Abrahan REINOSO, Sandra Unavailable Unavailable Mandi Maldonado RN Unavailable [phone] Marine LUNA, Conchita Bazzi Unavailable Unavailable Lacy SUPPLY CHAIN ASSISTANT, Lloyd Ramirez Unavailable Unavailab Sandra Dewey MA Unavailable Unavailable Vess SUPPLY CHAIN ASSISTANT, Jaziel Dawn Unavailable Unavailable Wengerd Rita REINOSO Unavailable Unavailabl e Unavailable Unavailable Unavailable Unavailable Unavailable Primary Care Provider Unavailabl e ELIJAH LYMAN Attending Unavailable ELIJAH LYMAN Referring Unavailable ELIJAH LYMAN Attending Unavailable Jorge A REINOSODarcyMadina Unavailable Unavailabl e Sales PA, [place] Primary Care Provider Sales PA, Anna Marie Referring Provider Mechelle Dan Attending Provider Kehinde Anand CNM Attending Provider [phone] Kehinde Anand CNM Referring Provider [phone] Malik SMITH, Dr. Carvalho Attending Provider Dr. Maia Gan MD Referring Provider Dr. Rita Rivas DO Attending Provider JULIANNA ANSARI Attending Unavailable KEHINDE ANAND Referring Unavailable [facility] Primary Care Unavailable BISHNU MORENO Attending Unavailable KEHINDE ANAND Referring Unavailable [facility] Primary Care Unavailable Dr. Rita Rivas DO Referring Provider [facility], [place] Primary Care Provider [facility], [place] Referring Provider Dr. Rita Rivas DO Other Provider [facility], [place] Primary Care Provider [facility], [place] Referring Provider Kehinde Anand CNM Attending Provider [phone] Kehinde Anand CNM Referring Provider Mechelle Dan Attending Provider Henrry GOMEZ [place] Primary Care Physician Kehinde Anand CNM Attending Physician Malik SMITH, Dr. Carvalho Attending Physician Dr. Rita Rivas DO Attending Physician Dr. Rita Rivas DO Nurse Practitioner Priscila POLLUTION CONTROL CHEMIST-C, Mechelle Attending Physician [phone] Priscila POLLUTION CONTROL CHEMIST-C, Mechelle Referring Provider [phone] Sales PA, Anna Marie Primary Care Physician Kehinde Anand CNM Attending Physician [phone] Vlad CNM, Kehinde Referring Provider [phone] Sales PA, Anna Marie Referring Provider Sales PA, Anna Marie Primary Care Physician Sales PA, Anna Marie Referring Provider Malik SMITH, Dr. Carvalho Attending Physician Dr. Rita Rivas DO Attending Physician Vlad HIGGINS, Kehinde Attending Physician [phone] Vlad CNM, Kehinde Referring Provider [phone] Mechelle Francois NP Attending Unavailable Sales PA, Anna Marie Primary Care Unavailable Sales PA, Anna Marie Referring Unavailable Sales PA, Anna Marie Primary Care Unavailable Sales PA, Anna Marie Referring Unavailable Maia Gan Attending Unavailable Sales PA, Anna Marie Primary Care Unavailable Sales PA, Anna Marie Referring Unavailable Rita Rivas Attending Unavailabl e Sales PA, Anna Marie Primary Care Unavailable Kehinde Anand Attending Unavailable Sales PA, Anna Marie Referring [...] Anand Referring Unavailable Kehinde Anand Attending Unavailable Rita Rivas Attending UnavailRita Pacheco Consulting Unavailabl e Rita Rivas Referring Unavailabl e Sales PA, Anna Marie Primary Care Unavailable Sales PA, Anna Marie Primary Care Unavailable Sales PA, Anna Marie Referring Unavailable Mechelle Francois NP Attending Unavailable Rita Rivas Attending Unavailabl e Sales PA, Anna Marie Primary Care Unavailable Sales PA, Anna Marie Referring Unavailable Sales PA, Anna Marie Primary Care Unavailable Sales PA, Anna Marie Referring Unavailable Maia Gan Attending Unavailable Sales PA, Anna Marie Primary Care Unavailable Sales PA, Anna Marie Referring Unavailable Kehinde Anand Attending Unavailable Priscila POLLUTION CONTROL CHEMIST, Mechelle Referring Unavailable Grandin POLLUTION CONTROL CHEMIST, Mechelle Attending Unavailable Sales PA, Anna Marie Primary Care Unavailable Sales PA, Anna Marie Primary Care Unavailable Gabbie Veldarrel, Rita Referring Unavailabl e Vande Velde, Rita Attending Unavailabl e Sales PA, Anna Marie Primary Care Unavailable Grandin POLLUTION CONTROL CHEMIST, Mechelle Referring Unavailable Priscila POLLUTION CONTROL CHEMIST, Mechelle Attending Unavailable Sales PA, Anna Marie Primary Care Unavailable Kehinde Anand Attending Unavailable Kehinde Anand Referring Unavailable Sales PA, Anna Marie Primary Care Unavailable Maia Gan Attending Unavailable Vande Velde, Rita Attending Unavailabl e Vande Velde, Rita Referring Unavailabl e Sales PA, Anna Marie Primary Care Unavailable Gabbie Marisol, Rita Attending Unavailabl e Vande Velde, Rita Admitting Unavailabl e Vande Velde, Rita Referring Unavailabl e Sales PA, Anna Marie Primary Care Unavailable Sales PA, Anna Marie Primary Care Unavailable Sales PA, Anna Marie Referring Unavailable Kehinde Anand Attending Unavailable Sales PA, Anna Marie Primary Care Unavailable Sales PA, Anna Marie Referring Unavailable Maia Gan Attending Unavailable Sales PA, Anna Marie Primary Care Unavailable Sales PA, Anna Marie Referring Unavailable Priscila POLLUTION CONTROL CHEMIST, Mechelle Attending Unavailable Medications Current Medications Medication Drug Class(es) Dates Sig (Normalized) Sig (Original) apremilast 30 mg oral tablet (17 sources) Otezla 30 mg tablet ; 1 daily (30 mg) Blood-Glucose Meter misc (2 sources) Start: 04-21-2025 Blood-Glucose Meter misc Active 0 .ROUTE .MEDSUPPLY 1 0 April 21, 2025 12:00am Gestational Diabetes As directed Breast Pump device (2 sources) Start: 04-22-2025 Breast Pump device Active 0 .ROUTE .MEDSUPPLY 1 April 22, 2025 12:00am As directed cephalexin 500 mg oral capsule (20 sources) Cephalosporin Antibacterial Start: 04-07-2025 take 1 capsule by mouth once daily Cephalexin 500 mg capsule Active 500 mg PO DAILY 30 4 April 07, 2025 12:00am Complies with drug [...] uni) docosahexaenoic acid 200 mg oral capsule (16 sources) Start: 11-03-2024 take 1 mg by mouth once daily Docosahexaenoic Acid ( Dha) 200 mg capsule Active 1 mg PO DAILY November 03, 2024 12:00am Complies with drug therapy famotidine 20 mg oral tablet (19 sources) Histamine-2 Receptor Antagonist Start: 02-09-2025 End: [...] 10 mg oral tablet (20 sources) Start: 11-05-19 take 1 tablet by mouth once daily Loratadine (Claritin) 10 MG tablet Active 10 mg PO DAILY November 05, 2015 12:00am Complies with drug therapy ruxolitinib (17 sources) ruxolitinib 1.5 % topical cream ; (1.5 %) triamcinolone acetonide 0.71623 mg/mg topical ointment (20 sources) Corticosteroid Start: [...] 80 {gram(s)} Refills: 0 Ordered: 09-Feb-2015 JEREMY Hwathorne Start: 13-Nov-2013 End: 09-Feb-2015 Status: Inactive Completed/Discontinued Medications Medication Drug Class(es) Dates Sig (Normalized) Sig (Original) [id number] 200 actuat albuterol 0.09 mg/actuat metered dose [...] with food ampicillin 500 mg oral capsule (5 sources) Penicillin-class Antibacterial Start: 03-31-20 End: 04-05-20 take [...] Quantity: 1 {Tablet} Refills: 11 Ordered: 23-Jul-2023 ElisaARLETH Start: 28-Nov-2022 End: 23-Jul-2023 Status: Inactive Ethinyl [...] Inactive ondansetron 4 mg disintegrating oral tablet (16 sources) Serotonin-3 Receptor Antagonist Start: 11-19-2024 End: 03-11-2025 take 1 tablet by mouth every six hours as needed for nausea and vomiting Ondansetron 4 mg tablet,disintegra ting Discontinued 4 mg PO EVERY 6 HOURS as needed for nausea and vomiting 90 4 November 19, 2024 12:00am March 11, 2025 [...] as needed for nausea and vomiting 12 December 11, 2024 12:00am December 21, 2024 [...] Inactive vitamin b6 10 mg oral tablet (16 sources) Start: 11-03-2024 End: 03-03-2025 take 1 [...] specified as acute or chronic] 11-13-2013 Episodic Diabetes mellitus without complication (8 sources) Abnormal glucose level; Translations: [Other abnormal glucose] Onset: 05-20-2025 04-07-2025 Episodic Comment on above: 3 hr GTT Could not tolerate 3 hr GTT. Doing QID testing. Could not tolerate 3 hr GTT. Doing QID testing. - has some elevated 2 hr pp as of 31 weeks. will continue testing. Disorders of teeth and jaw (16 sources) Loss of teeth due to extraction; Translations: [Partial loss of teeth, unspecified cause, unspecified class] 11-03-2024 Episodic Comment on above: 2022 Genitourinary symptoms and ill-defined conditions (20 sources) Urinary symptoms ; Translations: [Unspecified symptoms and signs involving the genitourinary system] Onset: 04-10-2025 08-18-2019 Episodic Headache; including migraine (20 sources) Headache; Translations: [Headache] 04-14-2018 Episodic Immunizations and screening for infectious disease (20 sources) Autoantibody titer positive; Translations: [Other specified abnormal immunological findings in serum] Onset: 04-22-2025 12-05-2022 Episodic Intracranial injury (20 sources) Concussion [...] on above: phenergan, pepcid Other complications of (20 sources) Urinary tract infection in ; Translations: [Unspecified infection of urinary tract in , unspecified trimester] 03-11-2025 Episodic Comment on above: at 23 weeks. recultu re in 4 weeks at 23 weeks. recultu re in 4 weeks 2nd UTI: culture pending & if + needs daily antibiotic until delivery at 23 weeks. recultu re in 4 weeks 2nd UTI: culture + and daily keflex started until delivery Other complications of (2 sources) Uterine size-date discrepancy, third trimester; Translations: [Uterine size-date discrepancy, third trimester] Onset: 05-20-2025 Episodic Other complications of (1 source) Unspecified infection of urinary tract in , second trimester; Translations: [Unspecified infection of urinary tract in , second trimester] Onset: 05-20-2025 Episodic Other complications of (2 sources) Supervision of high risk , unspecified, first trimester; Translations: [Supervision of high risk , unspecified, first trimester] Onset: 03-31-2025 Episodic Other complications of (2 sources) Unspecified infection of urinary tract in , unspecified trimester; Translations: [Unspecified infection of urinary tract in , unspecified trimester] Onset: 03-11-2025 Episodic 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 sources) Congenital anomaly of nose; 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 Comment on above: possible absent nasa l bone on US- fu scan scheduled and offered NIPT possible absent nasa l bone on US- fu scan scheduled and offered NIPT-LR Other congenital anomalies (2 sources) Other congenital [...] [Other specified abnormal findings of blood chemistry] Onset: 05-14-2025 11-30-2022 Episodic Other skin disorders (20 sources) [...] 08-18-2019 Episodic Residual codes; unclassified (1 source) 34 weeks gestation of ; Translations: [34 weeks gestation of ] Onset: 05-20-2025 Episodic Residual codes; unclassified (1 source) 31 weeks gestation of ; Translations: [31 weeks gestation of ] Onset: 05-03-2025 Episodic Residual codes; unclassified (1 source) 30 weeks gestation of ; Translations: [30 weeks gestation of ] Onset: 04-22-2025 Episodic Residual codes; unclassified (1 source) 24 [...] not include fever or chills. Note for "UTI": No previous history of UTIs.Not sexually active. Period due in 8 days. 06-08-2019 Viral infection (20 sources) Unspecified viral infection 11-13-2013 Episodic Past or Other Problems Problem Classification Problem Date Documented Date Episodic/Chronic Fluid and electrolyte disorders (1 source) Dehydration; Translations: [Dehydration] Onset: 01-11-2025 Episodic Other complications of (1 source) Endocrine, nutritional and metabolic diseases complicating , unspecified trimester; Translations: [Endocrine, nutritional and metabolic diseases complicating , unspecified trimester] Onset: 01-21-2025 Episodic Otitis media and related conditions (20 [...] sleeps 7 hours per night. Note for "Well adult female": Pt wants to start OCP due to [...] oral decongestant (pseudaphed). Note for Upper respiratory infection": covid test yesterday and that was negative [...] sleeps 8 hours per night. Note for "Well adult female": Hand stiffness in the morning and with [...] an individual with similar symptoms. Note for "Upper respiratory infection": Pt was treated for sinus infection with [...] history of asthma or tonsillectomy. Note for "Upper respiratory infection": negative Covid test , tested 2 days [...] strep pharyngitis, asthma or tonsillectomy. Note for "Upper respiratory infection": Nausea x 1.5 weeks. Mostly after eating. [...] strep pharyngitis, asthma or tonsillectomy. Note for "Upper respiratory infection": Taking sudafed x a few days and [...] it was a side effect.). Note for "Menstrual problems": No stress right now but is busy [...] or an individual with strep. Note for "Upper respiratory infection": Patient was treated with Cefdinir last week by [facility] but does not seem to be getting [...] recurrent ear infections. Note for Upper respiratory infection": Pt. c/o episodes of nausea and dizziness. [...] of foods and is allowed to eat "junk" foods. There are no eating difficulties. Meals/day: 3. The child sleeps 7 hours at night. Menstruation: regular periods. The child performs well in school, interacts well with peers and participates in extracurricular activities. Safety measures taken include appropriate use of safety belts and home smoke detectors. Note for "Well child visit #4 - 13 to 17 years": has concerns about frequent HAs - gets [...] recurrent ear infections. Note for Upper respiratory infection": Pt. saw [facility] 10/04/16 and was diagnosed with r.o.m.and treated [...] and cefdinir (diagnosed with bronchitis 04/04/16 per [facility])) and pt is continuing to use ventolin prn. Risk factors do not include smoking. The patient has been exposed to an individual with similar symptoms. Patient denies history of seasonal allergies, recurrent sinusitis or recurrent strep pharyngitis. Note for Upper respiratory infection": has continue zyrtec and sudafed daily 05-09-2016 [...] Care (Patient was seen on 11/05/2015 at [facility] with Dr. Dick for a concussion with out loss of consciousness. Patient fell onto concrete from a standing position. No xrays or MRI's were preformed at the ER. Patient is here today following up with PCP. Is having headaches frequently. Taking Tylenol to help relieve the headache. Is having neck pain, noticed having a "spasm" of the posterior neck and back of [...] avoiding exposure to passive smoke. Note for "Well child visit #4 - 13 to 17 years": Pt. needs a sports physical form completed [...] There has been associated itching. Note for "Rash": reviewed by B 11-13-2013 Unclassified (20 sources) Well child visit [...] child visit #3 - 4 to 12 years": Patient has a red rash on her [...] recurrent ear infections. Note for Upper respiratory infection": Vomited twice yesterday. No body aches but [...] includes seasonal allergies. Note for Upper respiratory infection": reviewed by [facility] 04-30-2012 Unclassified (20 sources) [...] with bronchitis this past fall). Note for "Cold Symptoms": Her mother reports she had bronchitis this [...] tonsillectomy or recurrent ear infections. Note for "Cold Symptoms": Pt c/o swollen glands and neck pain [...] tonsillectomy or recurrent ear infections. Note for "Cold Symptoms": Pt c/o lightheadedness,nausea and abd discomfort. 05-17-2011 [...] There are no relieving factors. Note for "Sore Throat": exposed to strep throat on the bus [...] and interacts well with peers. Note for "Well child visit #3 - 4 to 12 years": Mom states her only concerns are that her daughter seems to "slouch" to the side alot and she is [...] last year. Currently in 4th grade at [employer]. 09-07-2010 Unclassified (20 sources) Cough - Mom states that pt started in 3 days ago with cough, congestion, watery eyes. No s/t or ear pain. Low grade fever. COughing up some yellowish green sputum and chest hursts a little when she coughs. Had these similiar symptoms over Thanksgi but seemed to get over it on [...] it was a side effect.). Note for "Menstrual problems": No stress right now but is busy [...] strep pharyngitis, asthma or tonsillectomy. Note for "Upper respiratory infection": Taking sudafed x a few days and [...] Care (Patient was seen on 11/05/2015 at [facility] with Dr. Dick for a concussion with out loss of consciousness. Patient fell onto concrete from a standing position. No xrays or MRI's were preformed at the ER. Patient is here today following up with PCP. Is having headaches frequently. Taking Tylenol to help relieve the headache. Is having neck pain, noticed having a "spasm" of the posterior neck and back of [...] The patient's libido is normal. Note for "Well adult female": Declines flu vaccine today. 06-12-2024 Unclassified (16 [...] The patient's libido is normal. Note for "Well adult female": Declines flu vaccine today.At wedding she was same weight as last year but from that time to when she saw [facility] in [place] it was higher. Hot flashes are more in the evenings - cheeks are bright red and warm and then rest of body can do that.Saw [facility] for pain with intercourse - some improvement [...] unchanged. Associated symptoms include pain. Note for "Skin ulceration": Pt is 11 weeks .Possible drainage at one point. Doesn't seem to be as painful but since still present she thought she should get it checked.No fever.Has been applying neosporin. 12-16-2024 Results Test Name Value Interpretation Reference Range Facil ity 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on 05-20-2025 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 [facility] [address], [address] [place] [address] OFFICE VISIT Date of Service: 05/20/25 MR#: [id number] Acct: [id number] Name: CHERY MCKEON Rep #: [id number] : 2000 Provider: Dr. Maia dubois MD Age/Sex: 24/F [place] [facility] [place]: Signed Intake Vital Signs 04/07/25 12:52 05/03/25 09:28 05/20/25 13:55 Height 5 ft 5 in 5 ft 5 in 5 ft 5 in Weight: 188 lb 1 oz BMI 31.3 BP 131/83 H Intake Visit Reasons: [address] Freight Conductor Required: No Is patient in pain?: No Allergies No Known Allergies Allergy (Verified 05/20/25 13:56) Medications ???Medication ???Instructions ???Recorded ???Confirmed ???Type loratadine 10 mg tablet (Allergy 10 mg PO DAILY 11/05/15 05/20/25 H istory Relief (loratadine)) cholecalciferol (vitamin D3) 10 20 mcg PO QDAY 11/03/24 05/20/25 H istory mcg (400 unit) capsule docosahexaenoic acid 200 mg 1 mg PO DAILY 11/03/24 05/20/25 Hi story capsule ( DHA) levothyroxine 25 mcg tablet 50 mcg PO QDAY 11/19/24 05/20/25 H istory (Levo-T) famotidine 20 mg tablet (Pepcid) 20 mg PO BID #60 tabs 03/11/25 Rx cephalexin 500 mg capsule 500 mg PO DAILY #30 caps 04/07/25 05/20/25 Rx blood sugar diagnostic (Blood #120 ea 04/21/25 05/20/25 Rx Glucose Test strips) blood-glucose meter #1 ea 04/21/25 05/20/25 Rx lancets 30 gauge (Droplet Lancets) #200 ea 04/21/25 05/20/25 Rx breast pump #1 ea 04/22/25 05/20/25 Rx Last Menstrual Period: 09/16/24 Zika: Zika virus screening: Negative : No PFSH PFSH Surgical History [place] teeth removed S/P cholecystectomy Family History Grandfather Prostate cancer Grandmother Colon cancer CVA (cerebral vascular accident) Grandmother Dementia Father Diabetes Myocardial infarction Skin cancer Mother Heart disease Thyroid disorder Social History adopted: No household members: spouse housing: house current occupational status: employed current occupation: [employer] current occupational exposures/hazards: No pets and animals: [...] 1-2 times per week duration: 15-30 minutes/day guy/mormon: Mandaeism seatbelt use: always do you feel safe at home: Yes 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 OB Visit JACI Calculator Estimated Delivery Date Method Current WG Current Estimate 07/01/25 Ultrasound #1 34w 0d Other Estimates 06/23/25 LMP (Certain) 35w 1d Expected Delivery Route/Plan Labor Preferences- CB/BF classes: @PPC labor support person: Ervin labor intervention preferences: [] pain management options preferred: epidural if requested cut cord/dad catch: maybe : yes PP control planned: [] discussed possible routes of delivery and associated risks: [] special requests: [] Specific Issue/Plans Covid status: [] Flu vaccine: [] Tdap vaccine: given Rhogam: NA LARC form signed: yes movement and labor precautions reviewed. Problem list reviewed and updated with the [...] ??-???-???-???-??? -???-???-???- KW- CRL not cons with date (more content not included)... Normal [facility] - Chemistry and C hemistry - challengeOrdered By: Rita Damon on 05-03-2025 Glucose Ql (U) Negative [facility] - UrinalysisOrder ed By: Rita Damon on 05-03-2025 Protein Ql (U) Negative [facility] 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on 05-03-2025 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 [facility] [address], [address] [place] [address] OFFICE VISIT Date of Service: 05/03/25 MR#: [id number] Acct: [id number] Name: CHERY MCKEON Rep #: [id number] : 2000 Provider: Dr. Rita Warner DO Age/Sex: 24/F [place] [facility] [place]: Signed Intake Vital Signs 03/11/25 15:18 04/22/25 15:56 05/03/25 09:28 05/03/25 09:28 Height 5 ft 5 in 5 ft 5 in 5 ft 5 in 5 ft 5 in Weight: 182 lb BMI 30.2 BP 118/81 H Intake Visit Reasons: [address] Freight Conductor Required: No Is patient in pain?: No Allergies No Known Allergies Allergy (Verified 05/03/25 09:27) Medications ???Medication ???Instructions ???Recorded ???Confirmed ???Type loratadine 10 mg tablet (Allergy 10 mg PO DAILY 11/05/15 05/03/25 H istory Relief (loratadine)) cholecalciferol (vitamin D3) 10 20 mcg PO QDAY 11/03/24 05/03/25 H istory mcg (400 unit) capsule docosahexaenoic acid 200 mg 1 mg PO DAILY 11/03/24 05/03/25 Hi story capsule ( DHA) levothyroxine 25 mcg tablet 50 mcg PO QDAY 11/19/24 05/03/25 H istory (Levo-T) famotidine 20 mg tablet (Pepcid) 20 mg PO BID #60 tabs 03/11/25 Rx cephalexin 500 mg capsule 500 mg PO DAILY #30 caps 04/07/25 05/03/25 Rx blood sugar diagnostic (Blood #120 ea 04/21/25 05/03/25 Rx Glucose Test strips) blood-glucose meter #1 ea 04/21/25 05/03/25 Rx lancets 30 gauge (Droplet Lancets) #200 ea 04/21/25 05/03/25 Rx breast pump #1 ea 04/22/25 05/03/25 Rx Last Menstrual Period: 09/16/24 Zika: Zika virus screening: Negative : No PFSH PFSH Surgical History [place] teeth removed S/P cholecystectomy Family History Grandfather Prostate cancer Grandmother Colon cancer CVA (cerebral vascular accident) Grandmother Dementia Father Diabetes Myocardial infarction Skin cancer Mother Heart disease Thyroid disorder Social History adopted: No household members: spouse housing: house current occupational status: employed current occupation: [employer] current occupational exposures/hazards: No pets and animals: [...] 1-2 times per week duration: 15-30 minutes/day guy/mormon: Mandaeism seatbelt use: always do you feel safe at home: Yes 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 OB Visit JACI Calculator Estimated Delivery Date Method Current WG Current Estimate 07/01/25 Ultrasound #1 31w 4d Other Estimates 06/23/25 LMP (Certain) 32w 5d Expected Delivery Route/Plan Labor Preferences- CB/BF classes: @PPC labor support person: Ervin labor intervention preferences: [] pain management options preferred: epidural if requested cut cord/dad catch: maybe : yes PP control planned: [] discussed possible routes of delivery and associated risks: [] special requests: [] Specific Issue/Plans Covid status: [] Flu vaccine: [] Tdap vaccine: given Rhogam: NA LARC form signed: yes movement and labor precautions reviewed. Problem list reviewed and updated with the [...] -???-???-???-???-? ??-???-???-???-??? -???-???-???- 167 -???-???-???-???-? ??-???-???-???-??? -???-???-???- (more content not included)... Normal [facility] - Chemistry and C hemistry - challengeOrdered By: Maia Gan on 04-22-2025 Glucose Ql (U) Negative [facility] - UrinalysisOrder ed By: Maia Gan on 04-22-2025 Protein Ql (U) Negative [facility] 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on 04-22-2025 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 [facility]'s [address], [address] [place] [address] OFFICE VISIT Date of Service: 04/22/25 MR#: [id number] Acct: [id number] Name: CHERY MCKEON Rep #: [id number] : 2000 Provider: Dr. Maia dubois MD Age/Sex: 24/F [place] [facility] [place]: Signed Intake Vital Signs 03/11/25 15:18 04/07/25 12:52 04/22/25 15:56 Height 5 ft 5 in 5 ft 5 in 5 ft 5 in Weight: 176 lb 3 oz 179 lb BMI 29.3 29.7 BP 117/80 119/81 H Intake Visit Reasons: [address] Freight Conductor Required: No Is patient in pain?: No Allergies No Known Allergies Allergy (Verified 04/22/25 15:55) Medications ???Medication ???Instructions ???Recorded ???Confirmed ???Type loratadine 10 mg tablet (Allergy 10 mg PO DAILY 11/05/15 04/22/25 H istory Relief (loratadine)) cholecalciferol (vitamin D3) 10 20 mcg PO QDAY 04/15/25 10/02/25 H istory mcg (400 unit) capsule docosahexaenoic acid 200 mg 1 mg PO DAILY 11/03/24 04/22/25 Hi story capsule ( DHA) levothyroxine 25 mcg tablet 50 mcg PO QDAY 11/19/24 04/22/25 H istory (Levo-T) famotidine 20 mg tablet (Pepcid) 20 mg PO BID #60 tabs 03/11/2509/15 Rx cephalexin 500 mg capsule 500 mg PO DAILY #30 caps 04/07/25 04/22/25 Rx blood sugar diagnostic (Blood #120 ea 04/21/25 04/22/25 Rx Glucose Test strips) blood-glucose meter #1 ea 04/21/25 04/22/25 Rx lancets 30 gauge (Droplet Lancets) #200 ea 04/21/25 04/22/25 Rx Last Menstrual Period: 09/16/24 Zika: Zika virus screening: Negative : No PFSH PFSH Surgical History [place] teeth removed S/P cholecystectomy Family History Grandfather Prostate cancer Grandmother Colon cancer CVA (cerebral vascular accident) Grandmother Dementia Father Diabetes Myocardial infarction Skin cancer Mother Heart disease Thyroid disorder Social History adopted: No household members: spouse housing: house current occupational status: employed current occupation: [employer] current occupational exposures/hazards: No pets and animals: [...] 1-2 times per week duration: 15-30 minutes/day guy/mormon: Mandaeism seatbelt use: always do you feel safe at home: Yes 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 OB Visit JACI Calculator Estimated Delivery Date Method Current WG Current Estimate 07/01/25 Ultrasound #1 30w 0d Other Estimates 06/23/25 LMP (Certain) 31w 1d Expected Delivery Route/Plan Labor Preferences- CB/BF classes: @PPC labor support person: Ervin labor intervention preferences: [] pain management options preferred: epidural if requested cut cord/dad catch: maybe : yes PP control planned: [] discussed possible routes of delivery and associated risks: [] special requests: [] Specific Issue/Plans Covid status: [] Flu vaccine: [] Tdap vaccine: given Rhogam: NA LARC form signed: yes movement and labor precautions reviewed. Problem list reviewed and updated with the [...] not cons with dates. JACI changed. declines (more content not included)... Normal [facility] Gestational GTT 3HR 100gon 0 04-20-2025 GEST GTT 100gm Normal [facility] Comment on above: Order Comment: Y Result Comment: FAST ING 89 Col: 04/20/25 0715 GLUCOSE TOLERANCE TEST FOR Reference Interval GESTATIONAL DIABETES Fasting <105 mg/dL 1 hour <190 mg/dl 2 hour <165 mg/dl 3 hour <145 mg/dl 1 HR GLU Col: 04/20/25 0814 2 HR GLU Col: 04/20/25 0914 3 HR GLU Col: 04/20/25 1014 Performed By: #### L 500.4710 ####[facility] [address] [place], [place], [id number] Quantitative serum or plasma 3 hour gestational glucose tolerance panelOrdered By: Mechelle Francois on 04-20-2025 Glucose tolerance 3 hours gestational panel See comment [facility] Comment on above: FASTING 89 Col: 09/ 0715GLUCOSE TOLERANCE TEST FOR Reference Interval GESTATIONAL DIABETES Fasting <105 mg/dL 1 hour <190 mg/dl 2 hour <165 mg/dl 3 hour <145 mg/dl Urine Cultureon 04-09-2025 URC Below infection level. Mixed Gram Positive Organisms [place] Count 1000-10,000 MIXC Mixed contaminants. Submit a new specimen if indicated. Normal [facility] Comment on above: Performed By: #### M 100.2200 #### [facility] [address] [place], [place], [id number] Absolute lymphocyte countOrd ered By: Mechelle Francois on 04-07-2025 Lymphocytes Auto (Unsp spec) [#/Vol] 1.08 10*3/uL 0.83-4.51 [facility] Absolute neutrophil countOrd ered By: Mechelle Francois on 04-07-2025 Neutrophils (Bld) [#/Vol] 9.1 10*3/uL High 2.0-7.7 [facility] Automated lymphocyte count a s percentage of total leukocytesOrdered By: Mechelle Francois on 04-07-2025 Lymphocytes/100 WBC Auto (Unsp spec) 9.6 % Low 19-41 [facility] Basophil percentageOrdered B y: Mechelle Francois on 04-07-2025 Basophils/100 WBC (Bld) 0.3 % 0-1 [facility] CBC W/Diff, Automatedon 03-22 Absolute Lymph 1.08 X10 3/uL Normal 0.83-4.51 [facility] Comment on above: Performed By: #### L 100.0100, L509.8002, L3890.6006, L501.0250, BTS #### [facility] [address] [place], [address] Absolute Neut 9.1 X10 3/uL High 2.0-7.7 [facility] Comment on above: Performed By: #### L 100.0100, L509.8002, L3890.6006, L501.0250, BTS #### [facility] [address] [place], [address] Basophils/100 WBC (Bld) 0.3 % Normal 0-1 [facility] Comment on above: Performed By: #### L 100.0100, L509.8002, L3890.6006, L501.0250, BTS #### [facility] [address] [place], [address] Eosinophils/100 WBC (Bld) 0.8 % Normal 0-5 [facility] Comment on above: Performed By: #### L 100.0100, L509.8002, L3890.6006, L501.0250, BTS #### [facility] [address] [place], [address] Erythrocyte distribution width (RBC) [Ratio] 12.6 % Normal 11.6-14.6 [facility] Comment on above: Performed By: #### L 100.0100, L509.8002, L3890.6006, L501.0250, BTS #### [facility] [address] [place], [address] Hematocrit (Bld) [Volume fraction] 32.8 % Low 37-47 [facility] Comment on above: Performed By: #### L 100.0100, L509.8002, L3890.6006, L501.0250, BTS #### [facility] [address] [place], [address] Hemoglobin (Bld) [Mass/Vol] 11.6 g/dL Low 12.0-15.0 [facility] Comment on above: Performed By: #### L 100.0100, L509.8002, L3890.6006, L501.0250, BTS #### [facility] [address] [place], [address] IG% 0.600 Normal 0.0-0.9 [facility] Comment on above: Result Comment: IG% - Immature Granulocytes (promyelocytes, myelocytes and metamyelocytes) > 1% indicates that a LEFT SHIFT is Present. Performed By: #### L 100.0100, L509.8002, L3890.6006, L501.0250, BTS #### [facility] [address] [place], [address] Lymphocytes/100 WBC (Bld) 9.6 % Low 19-41 [facility] Comment on above: Performed By: #### L 100.0100, L509.8002, L3890.6006, L501.0250, BTS #### [facility] [address] [place], [address] MCH (RBC) [Entitic mass] 31.4 pg Normal 27.0-32.0 [facility] Comment on above: Performed By: #### L 100.0100, L509.8002, L3890.6006, L501.0250, BTS #### [facility] [address] [place], [address] MCHC (RBC) [Mass/Vol] 35.4 g/dL Normal 32-36 [facility] Comment on above: Performed By: #### L 100.0100, L509.8002, L3890.6006, L501.0250, BTS #### [facility] [address] [place], [address] MCV (RBC) [Entitic vol] 88.6 fL Normal 81-99 [facility] Comment on above: Performed By: #### L 100.0100, L509.8002, L3890.6006, L501.0250, BTS #### [facility] [address] [place], [address] Monocytes/100 WBC (Bld) 7.7 % Normal 0-10 [facility] Comment on above: Performed By: #### L 100.0100, L509.8002, L3890.6006, L501.0250, BTS #### [facility] [address] [place], [address] Neutrophils/100 WBC (Bld) 81.0 % High 47-70 [facility] Comment on above: Performed By: #### L 100.0100, L509.8002, L3890.6006, L501.0250, BTS #### [facility] [address] [place], [address] Nucleated RBC (Bld) [#/Vol] 0 10*3/uL Normal 0-5 [facility] Comment on above: Performed By: #### L 100.0100, L509.8002, L3890.6006, L501.0250, BTS #### [facility] [address] [place], [address] Platelet mean volume (Bld) [Entitic vol] 9.1 fL Normal 6.2-12.0 [facility] Comment on above: Performed By: #### L 100.0100, L509.8002, L3890.6006, L501.0250, BTS #### [facility] [address] [place], [address] Platelets (Bld) [#/Vol] 299 10*3/uL Normal 150-450 [facility] Comment on above: Performed By: #### L 100.0100, L509.8002, L3890.6006, L501.0250, BTS #### [facility] [address] [place], [address] RBC (Bld) [#/Vol] 3.70 10*6/uL Low 4.2-5.4 [facility] Comment on above: Performed By: #### L 100.0100, L509.8002, L3890.6006, L501.0250, BTS #### [facility] [address] [place], [address] RDW SD 40.8 fl Normal 35.1-43.9 [facility] Comment on above: Performed By: #### L 100.0100, L509.8002, L3890.6006, L501.0250, BTS #### [facility] [address] [place], [address] WBC (Bld) [#/Vol] 11.3 10*3/uL High 4.4-11.0 [facility] Comment on above: Performed By: #### L 100.0100, L509.8002, L3890.6006, L501.0250, BTS #### [facility] [address] [place], [place], [address] Eosinophil percentageOrdered By: Mechelle Diegos on 04-07-2025 Eosinophils/100 WBC (Bld) 0.8 % 0-5 [facility] Erythrocyte distribution wid th ratioOrdered By: Mechellepaxton Francois on 04-07-2025 Erythrocyte distribution width (RBC) [Ratio] 12.6 % 11.6-14.6 [facility] Erythrocyte distribution wid th standard deviationOrdered By: Mechelle Grandin on 04-07-2025 Erythrocyte distribution width (RBC) [Ratio] 40.8 fl 35.1-43.9 [facility] Glucose Challenge Gest 1H 50 joaquin 04-07-2025 GLU GEST 50g 1H 158 mg/dL High 70-140 [facility] Comment on above: Performed By: #### L 100.0100, L509.8002, L3890.6006, L501.0250, BTS #### [facility] [address] [facility] [place], [place], [address] Glucose measurement at 2 cornelio rs post-dose gestational glucose tolerance testOrdered By: Mechelle Francois on 04-07-2025 Glucose [Mass/Vol] 158 mg/dL High 70-140 [facility] HIVon 04-07-2025 HIV Non-Reactive Normal Nonreactive [facility] Comment on above: Result Comment: Non- Reactive Reactive Repeatedly reactive samples must be confirmed according to CDC recommended confirmatory algorithms. The subresults for either HIVAG or AHIV can be used as an aid in the selection of the confirmation algorithm for reactive samples. Send out specimens with Reactive results to [facility] for confirmation. Order the HIV antibody detection and differentiation: lc#[id number] Performed By: #### L 100.0100, L509.8002, L3890.6006, L501.0250, BTS #### [facility] [address] [place], [place], [address] Hematocrit Auto (Bld) [Volum e fraction]Ordered By: Mechelle Francois on 04-07-2025 Hematocrit (Bld) [Volume fraction] 32.8 % Low 37-47 [facility] Hemoglobin measurementOrdere d By: Mechelle Francois on 04-07-2025 Hemoglobin (Bld) [Mass/Vol] 11.6 g/dL Low 12.0-15.0 [facility] Immature granulocytes/100 WB C Auto (Bld)Ordered By: Mechelle Francois on 04-07-2025 Immature granulocytes/100 WBC (Bld) 0.600 % 0.0-0.9 [facility] Comment on above: IG% - Immature Granu locytes (promyelocytes, myelocytes and metamyelocytes) > 1% indicates that a LEFT SHIFT is Present. Laboratory - Chemistry and C hemistry - challengeOrdered By: Mechelle Francois on 04-07-2025 Glucose Ql (U) Negative [facility] - UrinalysisOrder ed By: Mechelle Francois on 04-07-2025 Protein Ql (U) Negative [facility] MCV (mean corpuscular volume ) determinationOrdered By: Mechelle Francois on 04-07-2025 MCV (RBC) [Entitic vol] 88.6 fL 81-99 [facility] Mean corpuscular hemoglobin (MCH) determinationOrdered By: Mechelle Francois on 04-07-2025 MCH (RBC) [Entitic mass] 31.4 pg 27.0-32.0 [facility] Mean corpuscular hemoglobin concentration (MCHC) determinationOrdered By: Mechelle Francois on 04-07-2025 MCHC (RBC) [Mass/Vol] 35.4 g/dL 32-36 [facility] Mean platelet volume determi nationOrdered By: Mechelle Francois on 04-07-2025 Platelet mean volume (Bld) [Entitic vol] 9.1 fL 6.2-12.0 [facility] Monocyte percentageOrdered B y: Mechelle Francois on 04-07-2025 Monocytes/100 WBC (Bld) 7.7 % 0-10 [facility] Neutrophil percentageOrdered By: Mechelle Francois on 04-07-2025 Neutrophils/100 WBC (Bld) 81.0 % High 47-70 [facility] No Panel InformationOrdered By: Mechelle Francois on 04-07-2025 HIV (1&2) Antibody Non-Reactive Nonreactive [facility] Comment on above: Non-ReactiveReactive Repeatedly reactive samples must be confirmed according to CDC recommended confirmatory algorithms. The subresults for either HIVAG or AHIV can be used as an aid in the selection of the confirmation algorithm for reactive samples.Send out specimens with Reactive results to [facility] for confirmation.Order the HIV antibody detection and differentiation: #[id number] Nucleated red blood cell per centageOrdered By: Mechelle Francois on 04-07-2025 Nucleated RBC/100 WBC (Bld) [Ratio] 0 % 0-5 [facility] 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on 04-07-2025 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 [facility]'s [address], [address] [place] [address] OFFICE VISIT Date of Service: 04/07/25 MR#: [id number] Acct: [id number] Name: CHERY MCKEON Rep #: [id number] : 2000 Provider: CHANG [employer] Age/Sex: 24/F [place] [facility] [place]: Signed Intake Vital Signs 02/09/25 10:58 03/31/25 09:03 04/07/25 12:52 Height 5 ft 5 in 5 ft 5 in 5 ft 5 in Weight: 176 lb 3 oz BMI 29.3 BP 117/80 Intake Visit Reasons: 28 WK OB/GLUCOSE Chief Complaint: 28 Week 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 Is patient in pain?: No Allergies No Known Allergies Allergy (Verified 04/07/25 12:54) Medications ???Medication ???Instructions ???Recorded ???Confirmed ???Type loratadine 10 mg tablet (Allergy 10 mg PO DAILY 11/05/15 04/07/25 H istory Relief (loratadine)) cholecalciferol (vitamin D3) 10 20 mcg PO QDAY 11/03/24 04/07/25 H istory mcg (400 unit) capsule docosahexaenoic acid 200 mg 1 mg PO DAILY 11/03/24 04/07/25 Hi story capsule ( DHA) levothyroxine 25 mcg tablet 50 mcg PO QDAY 11/19/24 04/07/25 H istory (Levo-T) famotidine 20 mg tablet (Pepcid) 20 mg PO BID #60 tabs 03/11/25 Rx cephalexin 500 mg capsule 500 mg PO DAILY #30 caps 04/07/25 04/07/25 Rx Last Menstrual Period: 09/16/24 Zika: Zika virus screening: Negative : Yes PFSH PFSH Surgical History [place] teeth removed S/P cholecystectomy Family History Grandfather Prostate cancer Grandmother Colon cancer CVA (cerebral vascular accident) Grandmother Dementia Father Diabetes Myocardial infarction Skin cancer Mother Heart disease Thyroid disorder Social History adopted: No household members: spouse housing: house current occupational status: employed current occupation: [employer] current occupational exposures/hazards: No pets and animals: [...] 1-2 times per week duration: 15-30 minutes/day guy/mormon: Mandaeism seatbelt use: always do you feel safe at home: Yes 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 OB Visit JACI Calculator Estimated Delivery Date Method Current WG Current Estimate 07/01/25 Ultrasound #1 27w 6d Other Estimates 06/23/25 LMP (Certain) 29w 0d Expected Delivery Route/Plan Labor Preferences- CB/BF classes: @PPC labor support person: Ervin labor intervention preferences: [] pain management options preferred: epidural if requested cut cord/dad catch: maybe : yes PP control planned: [] discussed possible routes of delivery and associated risks: [] special requests: [] Specific Issue/Plans Covid status: [] Flu vaccine: [] Tdap vaccine: [] Rhogam: NA LARC form signed: yes Problem list reviewed and updated with the [...] NIPT. PAP done with [facility] reports normal. 06/02/25 -???-???-???-???-? ??-???-???-???-??? -???-???-???- 12w 4d 165 lb (-5 lb) 126/86 Negative -???-???-???-???-? ??-???-???-???-??? -???-???-???- Negative 158 -???-? (more content not included)... Normal [facility] Platelet countOrdered By: Pito Francois on 04-07-2025 Platelets (Bld) [#/Vol] 299 10*3/uL 150-450 [facility] RBC Auto (Bld) [#/Vol]Ordere d By: Mechelle Francois on 04-07-2025 RBC (Bld) [#/Vol] 3.70 10*6/uL Low 4.2-5.4 [facility] Syphilis Antibodieson 2024 Syphilis Abs Non-Reactive Normal Nonreactive [facility] Comment on above: Performed By: #### L 100.0100, L509.8002, L3890.6006, L501.0250, BTS #### [facility] [address] [place], [address] Type AND Screenon 04-07-2025 Ab SCREEN GEL Negative Normal [facility] Comment on above: Order Comment: PN Performed By: #### L 100.0100, L509.8002, L3890.6006, L501.0250, BTS #### [facility] [address] [place], [address] Urine cultureOrdered By: Dada Francois on 04-07-2025 Bacteria identified Cx Nom (U) Positive Abnormal [facility] White blood cell (WBC) count Ordered By: Mechelle Francois on 04-07-2025 WBC (Bld) [#/Vol] 11.3 10*3/uL High 4.4-11.0 [facility] Urine Cultureon 04-03-2025 [facility] Urine Culture Staphylococcus epidermidis [place] Count 80,000-100,000 Mixed Gram Positive Organisms Mixed [...] S Vancomycin Islt TAYLOR 1 S Normal [facility] Comment on above: Performed By: #### M 100.2890 #### [facility] [address] [place], [place], [id number] Laboratory - Chemistry and C hemistry - challengeOrdered By: Mechelle Francois on 03-31-2025 Bilirubin Ql (U) Negative [facility] Glucose Ql (U) Negative [facility] Ketones Ql (U) Negative [facility] pH (U) 5.0 [pH] [facility] Specific gravity (U) [Rel density] 1.025 [facility] Urobilinogen (U) [Mass/Vol] 0.6417539 mg/dL [facility] - Hematology and Cell countsOrdered By: Mechelle Francois on 03-31-2025 Hemoglobin Ql (U) Moderate [facility] - Specimen inform ationOrdered By: Mechelle Francois on 03-31-2025 Clarity (U) Cloudy [facility] Color (U) Yellow [facility] - UrinalysisOrder ed By: Mechelle Francois on 03-31-2025 Nitrite Ql (U) Negative [facility] Protein Ql (U) Trace [facility] No Panel InformationOrdered By: Mechelle Francois on 03-31-2025 Urine Leukocytes Positive [facility] Urine Non-Hemolyzed Blood Trace [facility] 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on 03-31-2025 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 [facility], [address] [place] [address] OFFICE VISIT Date of Service: 03/31/25 MR#: [id number] Acct: [id number] Name: CHERY MCKEON Rep #: [id number] : 2000 Provider: CHANG hcurch Age/Sex: 24/F [place] [facility] Status: Signed Intake Vital Signs 03/11/25 15:18 03/30/25 15:50 03/31/25 09:01 03/31/25 09:03 Height 5 ft 5 in 5 ft 5 in 5 ft 5 in 5 ft 5 in Weight: 179 lb 5 oz BMI 29.8 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 Please send antibiotic to [facility] in [place]. PFSH PFSH Surgical History [place] teeth removed S/P cholecystectomy Family History Grandfather Prostate cancer Grandmother Colon cancer CVA (cerebral vascular accident) Grandmother Dementia Father Diabetes Myocardial infarction Skin cancer Mother Heart disease Thyroid disorder Social History adopted: No household members: spouse housing: house current occupational status: employed current occupation: [employer] current occupational exposures/hazards: No pets and animals: [...] 1-2 times per week duration: 15-30 minutes/day guy/mormon: Mandaeism seatbelt use: always do you feel safe at home: Yes 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 Normal [facility] Urine cultureOrdered By: Dada Francois on 03-31-2025 Bacteria identified Cx Nom (U) Staphylococcus epidermidis Abnormal [facility] Bacteria identified Cx Nom (U) Positive Abnormal [facility] Absolute lymphocyte countOrd ered By: Kehinde Anand on 03-11-2025 Lymphocytes Auto (Unsp spec) [#/Vol] 1.33 10*3/uL 0.83-4.51 [facility] Absolute neutrophil countOrd ered By: Kehinde Anand on 03-11-2025 Neutrophils (Bld) [#/Vol] 9.7 10*3/uL High 2.0-7.7 [facility] Anion gap in Serum or Plasma Ordered By: Kheinde Anand on 03-11-2025 Anion gap [Moles/Vol] 13 mmol/L 5-15 [facility] Automated blood erythrocyte countOrdered By: Kehinde Anand on 03-11-2025 RBC (Bld) [#/Vol] 3.68 10*6/uL Low 4.2-5.4 [facility] Comment on above: Performed By: #### L 500.4050, L100.0100, L501.9520 #### [facility] [place], [address] Automated blood hematocrit ( percentage)Ordered By: Kehinde Anand on 03-11-2025 Hematocrit (Bld) [Volume fraction] 33.1 % Low 37-47 [facility] Comment on above: Performed By: #### L 500.4050, L100.0100, L501.9520 #### [facility] [address] [place], [address] Automated lymphocyte count a s percentage of total leukocytesOrdered By: eKhinde Anand on 03-11-2025 Lymphocytes/100 WBC Auto (Unsp spec) 10.9 % Low 19-41 [facility] BUN/creatinine ratioOrdered By: Kehinde Anand on 03-11-2025 Urea nitrogen/Creatinine [Mass ratio] 11.9 mg/mg 10-20 [facility] Basophil percentageOrdered B y: Kehinde Anand on 03-11-2025 Basophils/100 WBC (Bld) 0.2 % Normal 0-1 [facility] Comment on above: Performed By: #### L 500.4050, L100.0100, L501.9520 #### [facility] [address] [place], [address] Bilirubin, totalOrdered By: Kehinde Anand on 03-11-2025 Bilirubin [Mass/Vol] 0.20 mg/dL 0.00-1.30 [facility] CBC W/Diff, Automatedon 02-20 Absolute Lymph 1.33 X10 3/uL Normal 0.83-4.51 [facility] Comment on above: Performed By: #### L 500.4050, L100.0100, L501.9520 #### [facility] [address] [place], [address] Absolute Neut 9.7 X10 3/uL High 2.0-7.7 [facility] Comment on above: Performed By: #### L 500.4050, L100.0100, L501.9520 #### [facility] [address] [place], [address] IG% 0.800 Normal 0.0-0.9 [facility] Comment on above: Result Comment: IG% - Immature Granulocytes (promyelocytes, myelocytes and metamyelocytes) > 1% indicates that a LEFT SHIFT is Present. Performed By: #### L 500.4050, L100.0100, L501.9520 #### [facility] [address] [place], [address] Lymphocytes/100 WBC (Bld) 10.9 % Low 19-41 [facility] Comment on above: Performed By: #### L 500.4050, L100.0100, L501.9520 #### [facility] [address] [place], [address] Nucleated RBC (Bld) [#/Vol] 0 10*3/uL Normal 0-5 [facility] Comment on above: Performed By: #### L 500.4050, L100.0100, L501.9520 #### [facility] [address] [place], [address] RDW SD 43.5 fl Normal 35.1-43.9 [facility] Comment on above: Performed By: #### L 500.4050, L100.0100, L501.9520 #### [facility] [address] [place], [address] Carbon dioxide, total [Moles /volume] in Central venous bloodOrdered By: Kehinde Anand on 03-11-2025 CO2 [Moles/Vol] 20.7 mmol/L Low 21.0-32.0 [facility] Chloride assayOrdered By: Jose Luis Anand on 03-11-2025 Chloride [Moles/Vol] 105 mmol/L 98-108 [facility] Comprehensive Metabolic Prof ilon 03-11-2025 Albumin [Mass/Vol] 3.8 g/dL Normal 3.5-5.0 [facility] Comment on above: Performed By: #### L 500.4050, L100.0100, L501.9520 ####[facility] [address] [place], [address] Albumin/Globulin [Mass ratio] 1.6 {ratio} Normal 0.9-2.4 [facility] Comment on above: Performed By: #### L 500.4050, L100.0100, L501.9520 ####[facility] [address] [place], [address] ALK PHOS 65 U/L Normal 35-104 [facility] Comment on above: Performed By: #### L 500.4050, L100.0100, L501.9520 ####[facility] [address] [place], [address] ALT [Catalytic activity/Vol] 9 U/L Normal <=34 [facility] Comment on above: Performed By: #### L 500.4050, L100.0100, L501.9520 ####[facility] [address] [place], [address] AST [Catalytic activity/Vol] 14 U/L Normal <=31 [facility] Comment on above: Performed By: #### L 500.4050, L100.0100, L501.9520 ####[facility] [address] [place], [address] Bilirubin [Mass/Vol] 0.20 mg/dL Normal 0.00-1.30 [facility] Comment on above: Performed By: #### L 500.4050, L100.0100, L501.9520 ####[facility] [address] [place], [address] BUN/CRE 11.9 RATIO Normal 10-20 [facility] Comment on above: Performed By: #### L 500.4050, L100.0100, L501.9520 ####[facility] [address] [place], [address] Calcium [Mass/Vol] 9.2 mg/dL Normal 7.6-11.0 [facility] Comment on above: Performed By: #### L 500.4050, L100.0100, L501.9520 ####[facility] [address] [place], [address] Chloride [Moles/Vol] 105 mmol/L Normal 98-108 [facility] Comment on above: Performed By: #### L 500.4050, L100.0100, L501.9520 ####[facility] [address] [place], [address] CO2 [Moles/Vol] 20.7 mmol/L Low 21.0-32.0 [facility] Comment on above: Performed By: #### L 500.4050, L100.0100, L501.9520 ####[facility] [address] [place], [address] Creatinine [Mass/Vol] 0.45 mg/dL Low 0.70-1.20 [facility] Comment on above: Performed By: #### L 500.4050, L100.0100, L501.9520 ####[facility] [address] [place], [address] GAP 13 Normal 5-15 [facility] Comment on above: Performed By: #### L 500.4050, L100.0100, L501.9520 ####[facility] [address] [place], [address] GFR/1.73 sq M.predicted among non-blacks MDRD (S/P/Bld) [Vol rate/Area] 138 mL/min/{1.73_m2} Normal >60 [facility] Comment on above: Result Comment: mL/m in/1.73m2 CKD-EPI Creatinine Equation (2020) Performed By: #### L 500.4050, L100.0100, L501.9520 ####[facility] [address] [place], [address] Globulin (S) [Mass/Vol] 2.4 g/dL Normal 2.2-4.2 [facility] Comment on above: Performed By: #### L 500.4050, L100.0100, L501.9520 ####[facility] [address] [place], [address] Glucose [Mass/Vol] 103 mg/dL High 70-99 [facility] Comment on above: Performed By: #### L 500.4050, L100.0100, L501.9520 ####[facility] [address] [place], [address] Potassium [Moles/Vol] 4.5 mmol/L Normal 3.3-5.1 [facility] Comment on above: Performed By: #### L 500.4050, L100.0100, L501.9520 ####[facility] [address] [place], [address] Sodium [Moles/Vol] 138 mmol/L Normal 133-145 [facility] Comment on above: Performed By: #### L 500.4050, L100.0100, L501.9520 ####[facility] [address] [place], [address] T PROT 6.2 g/dL Normal 5.9-8.4 [facility] Comment on above: Performed By: #### L 500.4050, L100.0100, L501.9520 ####[facility] [address] [place], [address] Urea nitrogen [Mass/Vol] 5 mg/dL Normal 4-19 [facility] Comment on above: Performed By: #### L 500.4050, L100.0100, L501.9520 ####[facility] [address] [place], [address] Eosinophil percentageOrdered By: Kehinde Anand on 03-11-2025 Eosinophils/100 WBC (Bld) 0.7 % Normal 0-5 [facility] Comment on above: Performed By: #### L 500.4050, L100.0100, L501.9520 #### [facility] [address] [place], [address] Erythrocyte distribution wid th ratioOrdered By: Kehinde Anand on 03-11-2025 Erythrocyte distribution width (RBC) [Ratio] 13.2 % Normal 11.6-14.6 [facility] Comment on above: Performed By: #### L 500.4050, L100.0100, L501.9520 #### [facility] [address] [place], [address] Erythrocyte distribution wid th standard deviationOrdered By: Kehinde Anand on 03-11-2025 Erythrocyte distribution width (RBC) [Ratio] 43.5 fl 35.1-43.9 [facility] Glomerular filtration rate ( GFR) estimation/1.73 sq m using serum, plasma, or whole bOrdered By: Kehinde Anand on 03-11-2025 GFR/1.73 sq M.predicted among non-blacks MDRD (S/P/Bld) [Vol rate/Area] 138 mL/min/{1.73_m2} >60 [facility] Comment on above: mL/min/1.73m2 CKD-EP I Creatinine Equation (2020) Hemoglobin measurementOrdere d By: Kehinde Anand on 03-11-2025 Hemoglobin (Bld) [Mass/Vol] 11.6 g/dL Low 12.0-15.0 [facility] Comment on above: Performed By: #### L 500.4050, L100.0100, L501.9520 #### [facility] [address] [place], [address] Immature granulocytes/100 WB C Auto (Bld)Ordered By: Kehinde Anand on 03-11-2025 Immature granulocytes/100 WBC (Bld) 0.800 % 0.0-0.9 [facility] Comment on above: IG% - Immature Granu locytes (promyelocytes, myelocytes and metamyelocytes) > 1% indicates that a LEFT SHIFT is Present. Laboratory - Chemistry and C hemistry - challengeOrdered By: Kehinde Anand on 03-11-2025 AST [Catalytic activity/Vol] 14 U/L <32 [facility] Glucose Ql (U) Negative [facility] - UrinalysisOrder ed By: Kehinde Anand on 03-11-2025 Protein Ql (U) Negative [facility] MCV (mean corpuscular volume ) determinationOrdered By: Kehinde Anand on 03-11-2025 MCV (RBC) [Entitic vol] 89.9 fL Normal 81-99 [facility] Comment on above: Performed By: #### L 500.4050, L100.0100, L501.9520 #### [facility] [address] [place], [address] Mean corpuscular hemoglobin (MCH) determinationOrdered By: Kehinde Anand on 03-11-2025 MCH (RBC) [Entitic mass] 31.5 pg Normal 27.0-32.0 [facility] Comment on above: Performed By: #### L 500.4050, L100.0100, L501.9520 #### [facility] [address] [place], [address] Mean corpuscular hemoglobin concentration (MCHC) determinationOrdered By: Kehinde Anand on 03-11-2025 MCHC (RBC) [Mass/Vol] 35.0 g/dL Normal 32-36 [facility] Comment on above: Performed By: #### L 500.4050, L100.0100, L501.9520 #### [facility] [address] [facility] [place], [address] Mean platelet volume determi nationOrdered By: Kehinde Anand on 03-11-2025 Platelet mean volume (Bld) [Entitic vol] 9.3 fL Normal 6.2-12.0 [facility] Comment on above: Performed By: #### L 500.4050, L100.0100, L501.9520 #### [facility] [address] [place], [address] Monocyte percentageOrdered B y: Kehinde Anand on 03-11-2025 Monocytes/100 WBC (Bld) 8.1 % Normal 0-10 [facility] Comment on above: Performed By: #### L 500.4050, L100.0100, L501.9520 #### [facility] [address] [place], [address] Neutrophil percentageOrdered By: Kehinde Anand on 03-11-2025 Neutrophils/100 WBC (Bld) 79.3 % High 47-70 [facility] Comment on above: Performed By: #### L 500.4050, L100.0100, L501.9520 #### [facility] [address] [place], [address] Nucleated red blood cell per centageOrdered By: Kehinde Anand on 03-11-2025 Nucleated RBC/100 WBC (Bld) [Ratio] 0 % 0-5 [facility] 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on 03-11-2025 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 [facility] [address], [address] [place] [address] OFFICE VISIT Date of Service: 03/11/25 MR#: [id number] Acct: [id number] Name: CHERY MCKEON Rep #: [id number] : 2000 Provider: GISELA Franks ams Age/Sex: 24/F [place] [facility] [place]: Signed Intake Vital Signs 01/15/25 14:30 03/03/25 18:25 03/11/25 15:12 03/11/25 15:18 Height 5 ft 5 in 5 ft 5 in 5 ft 5 in 5 ft 5 in Weight: 175 lb 3 oz BMI 29.1 BP 135/86 H Intake Visit Reasons: 24wk ob Chief Complaint: [address]wk [address] Freight Conductor Required: No Is patient in pain?: No [...] 09/16/24 : No PFSH PFSH Surgical History [place] teeth removed S/P cholecystectomy Family History Grandfather Prostate cancer Grandmother Colon cancer CVA (cerebral vascular accident) Grandmother Dementia Father Diabetes Myocardial infarction Skin cancer Mother Heart disease Thyroid disorder Social History adopted: No household members: spouse housing: house current occupational status: employed current occupation: [employer] current occupational exposures/hazards: No pets and animals: [...] 1-2 times per week duration: 15-30 minutes/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 Normal [facility] Platelet countOrdered By: Jose Luis Anand on 03-11-2025 Platelets (Bld) [#/Vol] 298 10*3/uL Normal 150-450 [facility] Comment on above: Performed By: #### L 500.4050, L100.0100, L501.9520 #### [facility] [address] [place], [address] Potassium measurement (mass/ volume)Ordered By: Kehinde Anand on 03-11-2025 Potassium (Unsp spec) [Mass/Vol] 4.5 mmol/L 3.3-5.1 [facility] Serum creatinine measurement (mass/volume)Ordered By: Kehinde Anand on 03-11-2025 Creatinine [Mass/Vol] 0.45 mg/dL Low 0.70-1.20 [facility] Serum globulin measurementOr dered By: Kehinde Anand on 03-11-2025 Globulin (S) [Mass/Vol] 2.4 g/dL 2.2-4.2 [facility] Serum glucose measurement (m ass/volume)Ordered By: Kehinde Anand on 03-11-2025 Glucose [Mass/Vol] 103 mg/dL High 70-99 [facility] Serum or plasma alanine otoole otransferase (ALT) measurementOrdered By: Kehinde Anand on 03-11-2025 ALT [Catalytic activity/Vol] 9 U/L <35 [facility] Serum or plasma albumin jennifer urement (mass/volume)Ordered By: Kehinde Anand on 03-11-2025 Albumin [Mass/Vol] 3.8 g/dL 3.5-5.0 [facility] Serum or plasma albumin/glob ulin mass ratioOrdered By: Kehinde Anand on 03-11-2025 Albumin/Globulin [Mass ratio] 1.6 {ratio} 0.9-2.4 [facility] Serum or plasma alkaline amri sphatase measurementOrdered By: Kehinde Anand on 03-11-2025 ALP [Catalytic activity/Vol] 65 U/L 35-104 [facility] Serum or plasma calcium jennifer urement (mass/volume)Ordered By: Kehinde Anand on 03-11-2025 Calcium [Mass/Vol] 9.2 mg/dL 7.6-11.0 [facility] Serum or plasma urea nitroge n measurement (mass/volume)Ordered By: Kehinde Anand on 03-11-2025 Urea nitrogen [Mass/Vol] 5 mg/dL 4-19 [facility] Sodium levelOrdered By: Jackie Anand on 03-11-2025 Sodium [Moles/Vol] 138 mmol/L 133-145 [facility] TSH DL <= 0.005 mIU/L QnOrde red By: Kehinde Anand on 03-11-2025 TSH Qn 1.460 uIU/mL 0.300-4.200 [facility] Thyroid Stim Hormone (TSH)on 03-11-2025 TSH 1.460 uIU/mL Normal 0.300-4.200 [facility] Comment on above: Performed By: #### L 500.5090, L100.0100, L501.9520 ####[facility] [address] [place], [address] Total proteinOrdered By: Ashu Anand on 03-11-2025 Protein [Mass/Vol] 6.2 g/dL 5.9-8.4 [facility] White blood cell (WBC) count Ordered By: Kehinde Anand on 03-11-2025 WBC (Bld) [#/Vol] 12.2 10*3/uL High 4.4-11.0 [facility] Comment on above: Performed By: #### L 500.4050, L100.0100, L501.9520 #### [facility] [address] [place], [address] Urine Cultureon 03-05-2025 URC Mixed Gram Positive Organisms [place] Count >100,000 MIXC Mixed contaminants. Submit a new specimen if indicated. Normal [facility] Comment on above: Performed By: #### M 100.2200 #### [facility] [address] [place], [address] Bilirubin Test strip Ql (U)O rdered By: Rita Damon on 03-03-2025 Bilirubin Ql (U) Negative Negative [facility] Ketones Test strip Ql (U)Ord ered By: Rita Damon on 03-03-2025 Ketones Ql (U) Negative Negative [facility] Nitrite Test strip Ql (U)Ord ered By: Rita Damon on 03-03-2025 Nitrite Ql (U) Negative Negative [facility] OB Triage Physician Noteon 0 03-03-2025 OB Triage Physician Note [facility] Medical Records Department [address] [place] [address] OB Triage Physician Note 03/03/25 2349 MR#: [id number] Acct: [id number] Name: CHERY MCKEON Rep #: [id number] : 2000 24 From: Rita Rivas DO PCP: PATRICIA Mckoy Status:DEP CLI Y Location: [facility] HPI - General General Date of Admission: 03/03/25 HPI Narrative CHERY MCKEON, is a 24 y/o @ 22 weeks 6 days who presents to [facility] with abdominal pain. 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 Normal [facility] Protein Test strip Ql (U)Ord ered By: Rita Damon on 03-03-2025 Protein Ql (U) 30 mg/dl High Negative [facility] Urinalysis, Routine (Dipstic k)on 03-03-2025 BILIRUBIN URINE Negative Normal Negative [facility] Comment on above: Order Comment: DIOGENES VALENTINO TO SPECIFY Performed By: #### L 400.2010 ####[facility] [address] [place], [place], [address] Clarity (U) Cloudy Normal Clear [facility] Comment on above: Order Comment: COLLE CTOR TO SPECIFY Performed By: #### L 400.2010 ####[facility] [address] [place], [address] Color (U) Yellow Normal Yellow [facility] Comment on above: Order Comment: COLLE CTOR TO SPECIFY Performed By: #### L 400.2010 ####[facility] [address] [place], [address] GLUCOSE, UR Normal Normal Normal [facility] Comment on above: Order Comment: COLLE CTOR TO SPECIFY Performed By: #### L 400.2010 ####[facility] [address] [place], [address] KETONE UR Negative Normal Negative [facility] Comment on above: Order Comment: COLLE CTOR TO SPECIFY Performed By: #### L 400.2010 ####[facility] [address] [place], [address] LEUK ESTERASE 500 /ul Abnormal Negative [facility] Comment on above: Order Comment: COLLE CTOR TO SPECIFY Performed By: #### L 400.2010 ####[facility] [address] [place], [address] Nitrite Ql (U) Negative Normal Negative [facility] Comment on above: Order Comment: COLLE CTOR TO SPECIFY Performed By: #### L 400.2010 ####[facility] [address] [place], [address] OCCULT BLOOD-UR 250 /ul Abnormal Negative [facility] Comment on above: Order Comment: COLLE CTOR TO SPECIFY Performed By: #### L 400.2010 ####[facility] [address] [place], [address] pH UR 7.0 Normal 5.0 - 8.0 [facility] Comment on above: Order Comment: COLLE CTOR TO SPECIFY Performed By: #### L 400.2010 ####[facility] [address] [place], [place], [address] PROT DIPSTX 30 mg/dl Abnormal Negative [facility] Comment on above: Order Comment: DIOGENES CTOR TO SPECIFY Performed By: #### L 400.2010 ####[facility] [address] [place], [address] SP.GR. DIPSTX 1.010 Normal 1.002-1.030 [facility] Comment on above: Order Comment: DIOGENES CTOR TO SPECIFY Performed By: #### L 400.2010 ####[facility] [address] [place], [address] UROBILI Normal Normal Normal [facility] Comment on above: Order Comment: DIOGENES CTOR TO SPECIFY Performed By: #### L 400.2010 ####[facility] [address] [place], [place], [address] Urine clarityOrdered By: Rozina Damon on 03-03-2025 Clarity (U) Cloudy Clear [facility] Urine color determinationOrd ered By: Rita Damon on 03-03-2025 Color (U) Yellow Yellow [facility] Urine cultureOrdered By: Rozina Damon on 03-03-2025 Bacteria identified Cx Nom (U) Positive Abnormal [facility] Urine glucose detectionOrder ed By: Rita Damon on 03-03-2025 Glucose Ql (U) Normal mg/dl Normal [facility] Urine leukocyte esterase det ection by dipstickOrdered By: Rita Damon on 03-03-2025 Leukocyte esterase Test strip Ql (U) 500 /ul High Negative [facility] Urine pHOrdered By: Rita Damon on 03-03-2025 pH (U) 7.0 [pH] 5.0 - 8.0 [facility] Urine specific gravity measu rementOrdered By: Rita Damon on 03-03-2025 Specific gravity (U) [Rel density] 1.010 1.002-1.030 [facility] Urine urobilinogen measureme ntOrdered By: Rita Damon on 03-03-2025 Urobilinogen Ql (U) Normal mg/dl Normal [facility] NATERAon 02-18-2025 NATURA SEE SCANNED REPORT Normal [facility] Comment on above: Performed By: #### M 100.5700 #### [facility] [address] [place], [address] Laboratory - Chemistry and C hemistry - challengeOrdered By: Maia Gan on 02-09-2025 Glucose Ql (U) Negative [facility] - UrinalysisOrder ed By: Maia Gan on 02-09-2025 Protein Ql (U) Negative [facility] 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on 02-09-2025 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 [facility]'s [address], [address] [place] [address] OFFICE VISIT Date of Service: 02/09/25 MR#: [id number] Acct: [id number] Name: CHERY MCKEON Rep #: [id number] : 2000 Provider: Dr. Maia dubois MD Age/Sex: 24/F [place] [facility] [place]: Signed Intake Vital Signs 12/21/24 15:20 01/15/25 14:30 02/09/25 10:58 Height 5 ft 5 in 5 ft 5 in 5 ft 5 in Weight: 173 lb 2 oz BMI 28.8 BP 129/83 H Intake Visit Reasons: [address] Freight Conductor Required: No Is patient in pain?: No [...] Rx promethazine 25 mg rectal 25 mg ID Q4-6H PRN nausea and 01/2002/09/25 Rx suppository vomiting #12 ea Last Menstrual Period: 09/16/24 Zika: Zika virus screening: Negative : No PFSH PFSH Surgical History [place] teeth removed S/P cholecystectomy Family History Grandfather Prostate cancer Grandmother Colon cancer CVA (cerebral vascular accident) Grandmother Dementia Father Diabetes Myocardial infarction Skin cancer Mother Heart disease Thyroid disorder Social History adopted: No household members: spouse housing: house current occupational status: employed current occupation: [employer] current occupational exposures/hazards: No pets and animals: [...] 1-2 times per week duration: 15-30 minutes/day guy/mormon: Mandaeism seatbelt use: always do you feel safe at home: Yes 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 (more content not included)... Normal [facility] Laboratory - Chemistry and C hemistry - challengeOrdered By: Rita Damon on 01-15-2025 Glucose Ql (U) Negative [facility] - UrinalysisOrder ed By: Rita Damon on 01-15-2025 Protein Ql (U) Negative [facility] 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on 01-15-2025 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 [facility] [address], [address] [place] [address] OFFICE VISIT Date of Service: 01/15/25 MR#: [id number] Acct: [id number] Name: CHERY MCKEON Rep #: [id number] : 2000 Provider: Dr. Rita Warner DO Age/Sex: 24/F [place] [facility] [place]: Signed Intake Vital Signs 11/19/24 08:43 01/06/25 12:36 01/15/25 14:30 Height 5 ft 5 in 5 ft 5 in 5 ft 5 in Weight: 171 lb 2 oz BMI 28.5 BP 124/85 H Intake Visit Reasons: [address] Freight Conductor Required: No Is patient in pain?: No [...] mg PO Q6H PRN nausea and 5 01/15/25 Rx tablet vomiting #90 tabs promethazine 25 mg rectal 25 mg ID Q4-6H PRN nausea and 09/1501/15/25 Rx suppository vomiting #12 ea Last Menstrual Period: 09/16/24 Zika: Zika virus screening: Negative : No PFSH PFSH Surgical History [place] teeth removed S/P cholecystectomy Family History Grandfather Prostate cancer Grandmother Colon cancer CVA (cerebral vascular accident) Grandmother Dementia Father Diabetes Myocardial infarction Skin cancer Mother Heart disease Thyroid disorder Social History adopted: No household members: spouse housing: house current occupational status: employed current occupation: [employer] current occupational exposures/hazards: No pets and animals: [...] 1-2 times per week duration: 15-30 minutes/day guy/mormon: Mandaeism seatbelt use: always do you feel safe at home: Yes 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 Normal [facility] - Chemistry and C hemistry - challengeOrdered By: Kehinde Anand on 12-21-2024 Glucose Ql (U) Negative [facility] - UrinalysisOrder ed By: Kehinde Anand on 12-21-2024 Protein Ql (U) Negative [facility] 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on 12-21-2024 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 [facility] [address], [address] [place] [address] OFFICE VISIT Date of Service: 12/21/24 MR#: [id number] Acct: [id number] Name: CHERY MCKEON Rep #: [id number] : 2000 Provider: GISELA Franks ams Age/Sex: 24/F [place] [facility]: Signed Intake Vital Signs 11/05/15 16:09 11/19/24 08:43 12/21/24 15:20 Height 5 ft 5 in 5 ft 5 in 5 ft 5 in Weight: 170 lb 6 oz 165 lb BMI 28.3 27.4 BP 130/86 H 126/86 H Intake Visit Reasons: 12wk ob Chief Complaint: 12wk OB [address] Freight Conductor Required: No Is patient in pain?: No [...] tabs promethazine 25 mg rectal 25 mg ID Q4-6H PRN nausea and 09/1512/21/24 Rx suppository vomiting #12 ea Last Menstrual Period: 09/16/24 PFSH PFSH Surgical History [place] teeth removed S/P cholecystectomy Family History Grandfather Prostate cancer Grandmother Colon cancer CVA (cerebral vascular accident) Grandmother Dementia Father Diabetes Myocardial infarction Skin cancer Mother Heart disease Thyroid disorder Social History adopted: No household members: spouse housing: house current occupational status: employed current occupation: [employer] current occupational exposures/hazards: No pets and animals: [...] 1-2 times per week duration: 15-30 minutes/day guy/mormon: Mandaeism seatbelt use: always do you feel safe at home: Yes 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 Normal [facility] TSH DL <= 0.005 mIU/L QnOrde red By: Kehinde Anand on 12-21-2024 TSH Qn 0.814 uIU/mL 0.300-4.200 [facility] Thyroid Stim Hormone (TSH)on 12-21-2024 TSH 0.814 uIU/mL Normal 0.300-4.200 [facility] Comment on above: Performed By: #### L 501.9520 ####[facility] [address] [place], [address] L3410.9992on 11-26-2024 [facility] [place] COMMENT Normal . [facility] Comment on above: Order Comment: [id number] 8TSH R AB SERUM FZ Result Comment: Test Ordered: [id number] TSH Receptor Antibody (TBII) TSH Receptor Antibody (TBII) <0.3 U/L Reference Range: . Reference Range: Antibody Titer: <1.0 U/L = Negative 1.1 - 1.5 U/L = Equivocal >1.5 U/L = Positive Performed at: [facility] [address] [place] [id number] [employer] Supervisor: Jeronimo Holden MD, Phone: [phone] Performed at: [facility] [address] [id number] [employer] Supervisor: Sandeep Bae PhD, Phone: [phone] Performed By: #### M 100.2200 #### [facility] [address] [place], [address] Chlamydia/GC ANIRUDH aptimaon CHLAMY,NUC ACID Negative Normal Negative [facility] Comment on above: Performed By: #### L 7000.1800, M100.2200 ####[facility] [address] [place], [address] GC BY NUC ACID Negative Normal Negative [facility] Comment on above: Result Comment: Perf ormed at: =G - [facility] [address] [id number] [employer] Supervisor: Alina Arreola MD, Phone: [phone] Performed By: #### L 7000.1800, M100.2200 ####[facility] [address] [place], [address] Urine Cultureon 11-21-2024 URC #1, 2 Below infection level. GPC Poss Enterococcus sp [place] Count <1000 Mixed Gram Positive Organisms Mixed Gram Positive Organisms MIXC Mixed contaminants. Submit a new specimen if indicated. Normal [facility] Comment on above: Performed By: #### L 7000.1800, M100.2200 ####[facility] [address] [place], [address] Absolute lymphocyte countOrd ered By: Mechelle Francois on 11-19-2024 Lymphocytes Auto (Unsp spec) [#/Vol] 1.42 10*3/uL 0.83-4.51 [facility] Absolute neutrophil countOrd ered By: Mechelle Francois on 11-19-2024 Neutrophils (Bld) [#/Vol] 5.9 10*3/uL 2.0-7.7 [facility] Automated lymphocyte count a s percentage of total leukocytesOrdered By: Mechelle Francois on 11-19-2024 Lymphocytes/100 WBC Auto (Unsp spec) 17.2 % Low 19-41 [facility] Basophil percentageOrdered B y: Mechelle Francois on 11-19-2024 Basophils/100 WBC (Bld) 0.4 % 0-1 [facility] CBC W/Diff, Automatedon -2024 Absolute Lymph 1.42 X10 3/uL Normal 0.83-4.51 [facility] Comment on above: Performed By: #### L 3410.9992, L100.0100, L509.8002, L509.4006, L506.0400, L3890.6006, L3890.6102, L501.9520, BTS, L3890.6301 ####[facility] [address] [place], [address] Absolute Neut 5.9 X10 3/uL Normal 2.0-7.7 [facility] Comment on above: Performed By: #### L 3410.9992, L100.0100, L509.8002, L509.4006, L506.0400, L3890.6006, L3890.6102, L501.9520, BTS, L3890.6301 ####[facility] [address] [place], [address] Basophils/100 WBC (Bld) 0.4 % Normal 0-1 [facility] Comment on above: Performed By: #### L 3410.9992, L100.0100, L509.8002, L509.4006, L506.0400, L3890.6006, L3890.6102, L501.9520, BTS, L3890.6301 ####[facility] [address] [place], [address] Eosinophils/100 WBC (Bld) 0.7 % Normal 0-5 [facility] Comment on above: Performed By: #### L 3410.9992, L100.0100, L509.8002, L509.4006, L506.0400, L3890.6006, L3890.6102, L501.9520, BTS, L3890.6301 ####[facility] [address] [place], [place], [phone](689) Erythrocyte distribution width (RBC) [Ratio] 12.2 % Normal 11.6-14.6 [facility] Comment on above: Performed By: #### L 3410.9992, L100.0100, L509.8002, L509.4006, L506.0400, L3890.6006, L3890.6102, L501.9520, BTS, L3890.6301 ####[facility] [address] [facility] [place], [address](202) Hematocrit (Bld) [Volume fraction] 38.9 % Normal 37-47 [facility] Comment on above: Performed By: #### L 3410.9992, L100.0100, L509.8002, L509.4006, L506.0400, L3890.6006, L3890.6102, L501.9520, BTS, L3890.6301 ####[facility] [address] [facility] [place], [place], [address] Hemoglobin (Bld) [Mass/Vol] 13.7 g/dL Normal 12.0-15.0 [facility] Comment on above: Performed By: #### L 3410.9992, L100.0100, L509.8002, L509.4006, L506.0400, L3890.6006, L3890.6102, L501.9520, BTS, L3890.6301 ####[facility] [address] [facility] [place], [address](153) IG% 0.400 Normal 0.0-0.9 [facility] Comment on above: Result Comment: IG% - Immature Granulocytes (promyelocytes, myelocytes and metamyelocytes) > 1% indicates that a LEFT SHIFT is Present. Performed By: #### L 3410.9992, L100.0100, L509.8002, L509.4006, L506.0400, L3890.6006, L3890.6102, L501.9520, BTS, L3890.6301 ####[facility] [address] [place], [address] Lymphocytes/100 WBC (Bld) 17.2 % Low 19-41 [facility] Comment on above: Performed By: #### L 3410.9992, L100.0100, L509.8002, L509.4006, L506.0400, L3890.6006, L3890.6102, L501.9520, BTS, L3890.6301 ####[facility] [address] [facility] [place], [address] MCH (RBC) [Entitic mass] 30.5 pg Normal 27.0-32.0 [facility] Comment on above: Performed By: #### L 3410.9992, L100.0100, L509.8002, L509.4006, L506.0400, L3890.6006, L3890.6102, L501.9520, BTS, L3890.6301 ####[facility] [address] [facility] [place], [address] MCHC (RBC) [Mass/Vol] 35.2 g/dL Normal 32-36 [facility] Comment on above: Performed By: #### L 3410.9992, L100.0100, L509.8002, L509.4006, L506.0400, L3890.6006, L3890.6102, L501.9520, BTS, L3890.6301 ####[facility] [address] [place], [address] MCV (RBC) [Entitic vol] 86.6 fL Normal 81-99 [facility] Comment on above: Performed By: #### L 3410.9992, L100.0100, L509.8002, L509.4006, L506.0400, L3890.6006, L3890.6102, L501.9520, BTS, L3890.6301 ####[facility] [address] [place], [address] Monocytes/100 WBC (Bld) 10.0 % Normal 0-10 [facility] Comment on above: Performed By: #### L 3410.9992, L100.0100, L509.8002, L509.4006, L506.0400, L3890.6006, L3890.6102, L501.9520, BTS, L3890.6301 ####[facility] [address] [facility] [place], [address] Neutrophils/100 WBC (Bld) 71.3 % High 47-70 [facility] Comment on above: Performed By: #### L 3410.9992, L100.0100, L509.8002, L509.4006, L506.0400, L3890.6006, L3890.6102, L501.9520, BTS, L3890.6301 ####[facility] [address] [facility] [place], [address] Nucleated RBC (Bld) [#/Vol] 0 10*3/uL Normal 0-5 [facility] Comment on above: Performed By: #### L 3410.9992, L100.0100, L509.8002, L509.4006, L506.0400, L3890.6006, L3890.6102, L501.9520, BTS, L3890.6301 ####[facility] [address] [facility] [place], [address] Platelet mean volume (Bld) [Entitic vol] 9.4 fL Normal 6.2-12.0 [facility] Comment on above: Performed By: #### L 3410.9992, L100.0100, L509.8002, L509.4006, L506.0400, L3890.6006, L3890.6102, L501.9520, BTS, L3890.6301 ####[facility] [address] [place], [address] Platelets (Bld) [#/Vol] 355 10*3/uL Normal 150-450 [facility] Comment on above: Performed By: #### L 3410.9992, L100.0100, L509.8002, L509.4006, L506.0400, L3890.6006, L3890.6102, L501.9520, BTS, L3890.6301 ####[facility] [address] [place], [address] RBC (Bld) [#/Vol] 4.49 10*6/uL Normal 4.2-5.4 [facility] Comment on above: Performed By: #### L 3410.9992, L100.0100, L509.8002, L509.4006, L506.0400, L3890.6006, L3890.6102, L501.9520, BTS, L3890.6301 ####[facility] [address] [place], [address] RDW SD 38.7 fl Normal 35.1-43.9 [facility] Comment on above: Performed By: #### L 3410.9992, L100.0100, L509.8002, L509.4006, L506.0400, L3890.6006, L3890.6102, L501.9520, BTS, L3890.6301 ####[facility] [address] [place], [address] WBC (Bld) [#/Vol] 8.3 10*3/uL Normal 4.4-11.0 [facility] Comment on above: Performed By: #### L 3410.9992, L100.0100, L509.8002, L509.4006, L506.0400, L3890.6006, L3890.6102, L501.9520, BTS, L3890.6301 ####[facility] [address] [place], [place], [address] Chlamydia trachomatis rRNA d etection by probe and target amplification methodOrdered By: Mechelle Francois on 11-19-2024 C. trachomatis rRNA ANIRUDH+probe Ql (Unsp spec) Negative Negative [facility] Eosinophil percentageOrdered By: [facility] on 11-19-2024 Eosinophils/100 WBC (Bld) 0.7 % 0-5 [facility] Erythrocyte distribution wid th ratioOrdered By: [facility] on 11-19-2024 Erythrocyte distribution width (RBC) [Ratio] 12.2 % 11.6-14.6 [facility] Erythrocyte distribution wid th standard deviationOrdered By: [facility] on 11-19-2024 Erythrocyte distribution width (RBC) [Ratio] 38.7 fl 35.1-43.9 [facility] HIVon 11-19-2024 HIV Non-Reactive Normal Nonreactive [facility] Comment on above: Result Comment: Non- Reactive Reactive Repeatedly reactive samples must be confirmed according to CDC recommended confirmatory algorithms. The subresults for either HIVAG or AHIV can be used as an aid in the selection of the confirmation algorithm for reactive samples. Send out specimens with Reactive results to [facility] for confirmation. Order the HIV antibody detection and differentiation: #[id number] Performed By: #### M 100.2200 #### [facility] [address] [facility] [place], [address] Hematocrit Auto (Bld) [Volum e fraction]Ordered By: Mechelle Francois on 11-19-2024 Hematocrit (Bld) [Volume fraction] 38.9 % 37-47 [facility] Hemoglobin measurementOrdere d By: Mechellepaxton Francois on 11-19-2024 Hemoglobin (Bld) [Mass/Vol] 13.7 g/dL 12.0-15.0 [facility] Hepatitis C Antibodyon 11-19 Hepatitis C Ab Non-Reactive Normal Nonreactive [facility] Comment on above: Result Comment: Reac tive: Presumptive evidence of antibodies to HCV. Follow CDC recommendations for supplemental testing. Non-Reactive: Antibodies to HCV were not detected; does not exclude the possibility of exposure to HCV Reactive Results are presumptive evidence of antibodies to HCV. Follow CDC recommendations for supplemental testing. Order confirmation testing: HCV Quant by PCR testing - HCVPCR #[id number] Non Reactive: < 0.8 Equivocal: >/= 0.8 to < 1.0 Reactive: >/= 1.0 The [facility] requires that a reactive/equivocal HCV antibody result be sent out for confirmation. HCV Quant by PCR testing. Performed By: #### M 100.2200 #### [facility] [address] [facility] [place], [address] Immature granulocytes/100 WB C Auto (Bld)Ordered By: Mechelle Francois on 11-19-2024 Immature granulocytes/100 WBC (Bld) 0.400 % 0.0-0.9 [facility] Comment on above: IG% - Immature Granu locytes (promyelocytes, myelocytes and metamyelocytes) > 1% indicates that a LEFT SHIFT is Present. L3890.6102on 11-19-2024 HEP B Surf Ag Non-Reactive Normal Nonreactive [facility] Comment on above: Result Comment: Reac tive: Presumptive evidence of HBV. Repeatedly reactive samples must be confirmed using a neutralization test ([employer] HBsAg Confirmatory Test) Non-Reactive: HBsAg not detected; does not exclude the possibility of exposure to HBV Performed By: #### M 100.2200 #### [facility] [address] [facility] [place], [address] L509.4006on 11-19-2024 Rubella IgG REAC Normal Nonreactive [facility] Comment on above: Result Comment: Anti body Result: Interpretation Non-Reactive: Non-Immune Reactive: Immune The following results were obtained with the [employer] Rubella IgG assay. Results from assays of other manufacturers cannot be used interchangeably. Performed By: #### M 100.2200 #### [facility] [address] [place], [address] Laboratory - Microbiology an d Antimicrobial susceptibilityOrdered By: Mechelle Farncois on 11-19-2024 HBV surface Ag Ql (S) Non-Reactive Nonreactive [facility] Comment on above: Reactive: Presumptiv e evidence of HBV. Repeatedly reactive samples must be confirmed using a neutralization test ([employer] HBsAg Confirmatory Test)Non-Reactive: HBsAg not detected; does not exclude the possibility of exposure to HBV MCV (mean corpuscular volume ) determinationOrdered By: Mechelle Francois on 11-19-2024 MCV (RBC) [Entitic vol] 86.6 fL 81-99 [facility] Mean corpuscular hemoglobin (MCH) determinationOrdered By: Mechelle Francois on 11-19-2024 MCH (RBC) [Entitic mass] 30.5 pg 27.0-32.0 [facility] Mean corpuscular hemoglobin concentration (MCHC) determinationOrdered By: Mechelle Francois on 11-19-2024 MCHC (RBC) [Mass/Vol] 35.2 g/dL 32-36 [facility] Mean platelet volume determi nationOrdered By: Mechellepaxton Francois on 11-19-2024 Platelet mean volume (Bld) [Entitic vol] 9.4 fL 6.2-12.0 [facility] Monocyte percentageOrdered B y: Mechelle Francois on 11-19-2024 Monocytes/100 WBC (Bld) 10.0 % 0-10 [facility] Neisseria gonorrhoeae nuclei c acid detection by amplified probe techniqueOrdered By: Mechelle Francois on 11-19-2024 N. gonorrhoeae DNA ANIRUDH+probe Ql (Unsp spec) Negative Negative [facility] Comment on above: Performed at: =[address] [id number] Director: Alina Arreola MD, Phone: [phone] Neutrophil percentageOrdered By: Mechelle Francois on 11-19-2024 Neutrophils/100 WBC (Bld) 71.3 % High 47-70 [facility] No Panel InformationOrdered By: Mechelle Francois on 11-19-2024 HIV (1&2) Antibody Non-Reactive Nonreactive [facility] Comment on above: Non-ReactiveReactive Repeatedly reactive samples must be confirmed according to CDC recommended confirmatory algorithms. 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 Is patient in pain?: No [...] past year?: No PFSH PFSH Surgical History [place] teeth removed S/P cholecystectomy Family History Grandfather Prostate cancer Grandmother Colon cancer CVA (cerebral vascular accident) Grandmother Dementia Father Diabetes Myocardial infarction Skin cancer Mother Heart disease Thyroid disorder Social History adopted: No household members: spouse housing: house current occupational status: employed current occupation: [employer] current occupational exposures/hazards: No pets and animals: [...] 1-2 times per week duration: 15-30 minutes/day guy/mormon: Mandaeism seatbelt use: always do you feel safe at home: Yes 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 Normal [facility] Platelet countOrdered By: Pito Francois on 11-19-2024 Platelets (Bld) [#/Vol] 355 10*3/uL 150-450 [facility] RBC Auto (Bld) [#/Vol]Ordere d By: Mechelle Francois on 11-19-2024 RBC (Bld) [#/Vol] 4.49 10*6/uL 4.2-5.4 [facility] Syphilis Antibodieson 2024 Syphilis Abs Non-Reactive Normal Nonreactive [facility] Comment on above: Performed By: #### M 100.2200 #### [facility] [address] [facility]. [place], [place], [address] T4 Free Directon 11-19-2024 T4 FREE DIRECT 1.30 ng/dL Normal 0.76-1.46 [facility] Comment on above: Performed By: #### L 3410.9992, L100.0100, L509.8002, L509.4006, L506.0400, L3890.6006, L3890.6102, L501.9520, BTS, L3890.6301 ####[facility] [address] [place], [place], [address] T4 freeOrdered By: Mechelle berkowitz on 11-19-2024 Free T4 [Mass/Vol] 1.30 ng/dL 0.76-1.46 [facility] TSH DL <= 0.005 mIU/L QnOrde red By: Mechelle Francois on 11-19-2024 TSH Qn 3.300 uIU/mL 0.300-4.200 [facility] Thyroid Stim Hormone (TSH)on 11-19-2024 TSH 3.300 uIU/mL Normal 0.300-4.200 [facility] Comment on above: Performed By: #### L 3410.9992, L100.0100, L509.8002, L509.4006, L506.0400, L3890.6006, L3890.6102, L501.9520, BTS, L3890.6301 ####[facility] [address] [place], [address] Type AND Screenon 11-19-2024 ABO and Rh group Nom (Bld) Blood group O Rh(D) positive Normal [facility] Comment on above: Order Comment: PN Performed By: #### M 100.2200 #### [facility] [address] [place], [place], [address] Urine cultureOrdered By: Dada Francois on 11-19-2024 Bacteria identified Cx Nom (U) [facility] Poss Enterococcus sp Abnormal [facility] Bacteria identified Cx Nom (U) Positive Abnormal [facility] White blood cell (WBC) count Ordered By: Mechelle Francois on 11-19-2024 WBC (Bld) [#/Vol] 8.3 10*3/uL 4.4-11.0 [facility] - Chemistry and C hemistry - challengeOrdered By: Mechelle Francois on 11-03-2024 HCG ( test) Ql (U) Positive [facility] Office Visit Reporton 2024 Office Visit Report [facility] [address] [place] [address] OFFICE VISIT Date of Service: 11/03/24 MR#: [id number] Acct: [id number] Patient: CHERY MCKEON Rep #: [id number] : 2000 Provider: [employer]ANG [employer] Age/Sex: 23/F [place] [facility] [place]: Signed Intake Vital Signs 11/05/15 16:09 [...] and NOB scheduled 11/03/24 1213 Date Mechelle Grandin 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 CONTROL 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 CONTROL CHEMIST-C Cosigner Signature: Date (if applicable) CC: Normal [facility] CBC (INCLUDES DIFF/PLT)on Basophils (Bld) [#/Vol] 0.038 10*3/uL Normal 0-200 [facility] Comment on above: Performed By: #### 6 399, 58511, 404, 866 #### [facility] [place] [address] Content Curator: Jimbo Sal MD Basophils/100 WBC (Bld) 0.4 % Normal [facility] Comment on above: Performed By: #### 6 399, 85462, 444, 866 #### [facility] [address] Content Curator: Jimbo Sal MD Eosinophils (Bld) [#/Vol] 0.094 10*3/uL Normal 15-500 [facility] Comment on above: Performed By: #### 6 399, 24875, 173, 866 #### [facility] [address] Content Curator: Jimbo Sal MD Eosinophils/100 WBC (Bld) 1.0 % Normal [facility] Comment on above: Performed By: #### 6 399, , , 866 #### [facility] of [place] [address] Content Curator: iJmbo Sal MD Erythrocyte distribution width (RBC) [Ratio] 12.0 % Normal 11.0-15.0 [facility] Comment on above: Performed By: #### 6 399, , , 866 #### [facility] of [place] [address] Content Curator: Jimbo Sal MD Hematocrit (Bld) [Volume fraction] 41.9 % Normal 35.0-45.0 [facility] Comment on above: Performed By: #### 6 399, , , 866 #### [facility] [place] [address] Content Curator: Jimbo Sal MD Hemoglobin (Bld) [Mass/Vol] 14.1 g/dL Normal 11.7-15.5 [facility] Comment on above: Performed By: #### 6 399, , , 866 #### [facility] [place] [address] Content Curator: Jimbo Sal MD Lymphocytes (Bld) [#/Vol] 1.645 10*3/uL Normal 850-3900 [facility] Comment on above: Performed By: #### 6 399, , , 866 #### [facility] [place] [address] Content Curator: Jimbo Sal MD Lymphocytes/100 WBC (Bld) 17.5 % Normal [facility] Comment on above: Performed By: #### 6 399, , , 866 #### [facility] [place] [address] Content Curator: Jimbo Sal MD MCH (RBC) [Entitic mass] 30.8 pg Normal 27.0-33.0 [facility] Comment on above: Performed By: #### 6 399, [address], , 866 #### [facility] [place] [address] Content Curator: Jimbo Sal MD MCHC (RBC) [Mass/Vol] 33.7 [...] clinical condition. Performed By: #### 6 399, [address], , 866 #### [facility] [place] [address] Content Curator: Jimbo Sal MD MCV (RBC) [Entitic vol] 91.5 fL Normal 80.0-100.0 [facility] Comment on above: Performed By: #### 6 399, [address], , 866 #### [facility] [place] [address] Content Curator: Jimbo Sal MD Monocytes (Bld) [#/Vol] 0.752 10*3/uL Normal 200-950 [facility] Comment on above: Performed By: #### 6 399, , , 866 #### [facility] [place] [address] Content Curator: Jimbo Sal MD Monocytes/100 WBC (Bld) 8.0 % Normal [facility] Comment on above: Performed By: #### 6 399, [address], , 866 #### [facility] [place] [address] Content Curator: Jimbo Sal MD Neutrophils (Bld) [#/Vol] 6.871 10*3/uL Normal 1408-0253 [facility] Comment on above: Performed By: #### 6 399, [address], , 866 #### [facility] of [address], [address] [place] [address] Content Curator: Jimbo Sal MD Neutrophils/100 WBC (Bld) 73.1 % Normal [facility] Comment on above: Performed By: #### 6 399, 63527, 899, 866 #### [facility] [place] [address] Content Curator: Jimbo Sal MD Platelet mean volume (Bld) [Entitic vol] 9.4 fL Normal 7.5-12.5 [facility] Comment on above: Performed By: #### 6 399, 45854, 89, 866 #### [facility] [place] [address] Content Curator: Jimbo Sal MD Platelets (Bld) [#/Vol] 401 10*3/uL High 140-400 [facility] Comment on above: Performed By: #### 6 399, 44220, 89, 866 #### [facility] [place] [address] Content Curator: Jimbo Sal MD RBC (Bld) [#/Vol] 4.58 10*6/uL Normal 3.80-5.10 [facility] Comment on above: Performed By: #### 6 399, 30974, 89, 866 #### [facility] [place] [address] Content Curator: Jimbo Sal MD WBC (Bld) [#/Vol] 9.4 10*3/uL Normal 3.8-10.8 [facility] Comment on above: Performed By: #### 6 399, 15805, 89, 866 #### [facility] [place] [address] Content Curator: Jimbo Sal MD COMPREHENSIVE METABOLIC PANE [facility] 06-14-2024 Albumin [Mass/Vol] 4.6 g/dL Normal 3.6-5.1 [facility] Comment on above: Performed By: #### 6 399, 47497, , 866 #### [facility] [place] [address] Content Curator: Jimbo Sal MD Albumin/Globulin [Mass ratio] 2.1 {ratio} Normal 1.0-2.5 [facility] Comment on above: Performed By: #### 6 399, 73556, , 866 #### [facility] [place] [address] Content Curator: Jimbo Sal MD ALP [Catalytic activity/Vol] 47 U/L Normal 31-125 [facility] Comment on above: Performed By: #### 6 399, 84797, , 866 #### [facility] [place] [address] Content Curator: Jimbo Sal MD ALT [Catalytic activity/Vol] 16 U/L Normal 6-29 [facility] Comment on above: Performed By: #### 6 399, 01284, , 866 #### [facility] [place] [address] Content Curator: Jimbo Sal MD AST [Catalytic activity/Vol] 19 U/L Normal 10-30 [facility] Comment on above: Performed By: #### 6 399, 00526, 89, 866 #### [facility] [place] [address] Content Curator: Jimbo Sal MD Bilirubin [Mass/Vol] 0.4 mg/dL Normal 0.2-1.2 [facility] Comment on above: Performed By: #### 6 399, 80648, 89, 866 #### [facility] [place] [address] Content Curator: Jimbo Sal MD BUN/CREATININE RATIO SEE NOTE: Normal 6-22 [facility] Comment on above: Result Comment: Not Reported: BUN and Creatinine are within reference range. Performed By: #### 6 399, 91058, 89, 866 #### [facility] [place] [address] Content Curator: Jimbo Sal MD Calcium [Mass/Vol] 9.9 mg/dL Normal 8.6-10.2 [facility] Comment on above: Performed By: #### 6 399, 96564, , 866 #### [facility] [place] [address] Content Curator: Jimbo Sal MD Chloride [Moles/Vol] 106 mmol/L Normal 98-110 [facility] Comment on above: Performed By: #### 6 399, , , 866 #### [facility] [place] [address] Content Curator: Jimbo Sal MD CO2 [Moles/Vol] 24 mmol/L Normal 20-32 [facility] Comment on above: Performed By: #### 6 399, , , 866 #### [facility] [place] [address] Content Curator: Jimbo Sal MD Creatinine [Mass/Vol] 0.70 mg/dL Normal 0.50-0.[address] [facility] Comment on above: Performed By: #### 6 399, , , 866 #### [facility] [place] [address] Content Curator: Jimbo Sal MD GFR/1.73 sq M.predicted among non-blacks MDRD (S/P/Bld) [Vol rate/Area] 125 mL/min/{1.73_m2} Normal > OR = 60 [facility] Comment on above: Performed By: #### 6 399, , , 866 #### [facility] [place] [address] Content Curator: Jimbo Sal MD Globulin (S) [Mass/Vol] 2.2 g/dL Normal 1.9-3.7 [facility] Comment on above: Performed By: #### 6 399, 75461, 89, 866 #### [facility] [place] [address] Content Curator: Jimbo Sal MD Glucose [Mass/Vol] 89 mg/dL Normal 65-99 [facility] Comment on above: Result Comment: Fasting reference interval Performed By: #### 6 399, 09714, 89, 866 #### [facility] [place] [address] Content Curator: Jimbo Sal MD Potassium [Moles/Vol] 4.1 mmol/L Normal 3.5-5.[address] [facility] [address] [facility] Comment on above: Performed By: #### 6 399, 87070, 89, 866 #### [facility] [place] [address] Content Curator: Jimbo Sal MD Protein [Mass/Vol] 6.8 g/dL Normal 6.1-8.1 [facility] Comment on above: Performed By: #### 6 399, 92185, 89, 866 #### [facility] [place] [address] Content Curator: Jimbo Sal MD Sodium [Moles/Vol] 138 mmol/L Normal 135-146 [facility] Comment on above: Performed By: #### 6 399, 31511, 89, 866 #### [facility] [place] [address] Content Curator: Jimbo Sal MD Urea nitrogen [Mass/Vol] 12 mg/dL Normal 7-25 [facility] Comment on above: Performed By: #### 6 399, 27625, 89, 866 #### [facility] [place] [address] Content Curator: Jimbo Sal MD FERRITINon 06-14-2024 Ferritin [Mass/Vol] 19 ng/mL Normal 16-154 [facility] Comment on above: Performed By: #### 6 399, 00216, 89, 866 #### [facility] [address], [address] [place] [address] Content Curator: Jimbo Sal MD T4, FREEon 06-14-2024 Free T4 [Mass/Vol] 1.3 ng/dL Normal 0.8-1.8 [facility] Comment on above: Performed By: #### 6 399, 25391, 899, 866 #### [facility] [address], [address] [place] [address] Content Curator: Jimbo Sal MD TSHon 06-14-2024 TSH Qn 1.71 m[IU]/L Normal [facility] Comment on above: Result Comment: Refe rence Range > or = 20 Years 0.40-4.50 Ranges First trimester 0.26-2.66 Second trimester 0.55-2.73 Third trimester 0.43-2.91 Performed By: #### 6 399, 28861, 899, 866 #### [facility] [address], [address] [place] [address] Content Curator: Jimbo Sal MD Laboratory - Chemistry and C hemistry - challengeon 06-12-2024 Albumin [Mass/Vol] 4.6 g/dL Normal 3.6 - 5.1 g/dL [facility], [facility].; [place] [employer] [facility] Albumin/Globulin [Mass ratio] 2.1 {ratio} Normal 1.0 - 2.5 [facility], [facility].; [place] [employer] [facility] ALP [Catalytic activity/Vol] 47 U/L Normal 31 - 125 U/L [facility], [facility].; [place] [facility], [facility]. ALT [Catalytic activity/Vol] 16 U/L Normal 6 - 29 U/L [facility], [facility].; [employer] AST [Catalytic activity/Vol] 19 U/L Normal 10 - 30 U/L [facility], [facility].; [place] [employer] Bilirubin [Mass/Vol] 0.4 mg/dL Normal 0.2 - 1.2 mg/dL [facility], [facility].; [place] [facility], [facility]. Calcium [Mass/Vol] 9.9 mg/dL Normal 8.6 - 10. 2 mg/dL [facility], [facility].; [facility], [facility] Chloride [Moles/Vol] 106 mmol/L Normal 98 - 110 mmol/L [facility].; [facility], [facility]. CO2 [Moles/Vol] 24 mmol/L Normal 20 - 32 mmol/L [facility], [facility].; [facility], [facility] Creatinine [Mass/Vol] 0.70 mg/dL Normal 0.50 - 0.96 mg/dL [facility].; [facility], [facility] Ferritin [Mass/Vol] 19 ng/mL Normal 16 - 154 ng/mL [facility]; [facility], [facility] Free T4 [Mass/Vol] 1.3 ng/dL Normal 0.8 - 1.8 ng/dL [facility], [facility]; [facility], [facility] GFR/1.73 sq M.predicted among non-blacks MDRD (S/P/Bld) [Vol rate/Area] 125 mL/min/{1.73_m2} Normal [facility].; [facility], [facility] Glucose [Mass/Vol] 89 mg/dL Normal 65 - 99 mg/dL [facility].; [facility], [facility]. Potassium [Moles/Vol] 4.1 mmol/L Normal 3.5 - 5.3 mmol/L [facility], [facility].; [facility], [facility] Protein [Mass/Vol] 6.8 g/dL Normal 6.1 - 8.1 g/dL [facility].; [facility], [facility] Sodium [Moles/Vol] 138 mmol/L Normal 135 - 146 mmol/L [facility], [facility].; [facility], [facility] TSH Qn 1.71 m[IU]/L Normal [facility]; [facility], [facility] Urea nitrogen [Mass/Vol] 12 mg/dL Normal 7 - 25 mg/d L [facility], [facility].; [facility], [facility] Laboratory - Hematology and Cell countson 06-12-2024 Basophils (Bld) [#/Vol] 0.038 10*3/uL Normal 0 - 200 {cells/uL} [facility], [facility].; [facility], [facility]. Basophils/100 WBC (Bld) 0.4 % Normal [facility].; [facility], [facility] Eosinophils (Bld) [#/Vol] 0.094 10*3/uL Normal 15 - 500 {cells/uL} [facility], [facility].; [facility], [facility]. Eosinophils/100 WBC (Bld) 1.0 % Normal [facility].; [facility], [facility]. Erythrocyte distribution width (RBC) [Ratio] 12.0 % Normal 11.0 - 15.0 % [facility], [facility].; [facility], [facility]. Hematocrit (Bld) [Volume fraction] 41.9 % Normal 35.0 - 45.0 % [facility], [facility].; [facility], [facility] Hemoglobin (Bld) [Mass/Vol] 14.1 g/dL Normal 11.7 - 15.5 g/dL [facility].; [facility], [facility]. Lymphocytes (Bld) [#/Vol] 1.645 10*3/uL Normal 850 - 3900 {cells/uL} [facility], [facility].; [facility] [employer], [facility]. Lymphocytes/100 WBC (Bld) 17.5 % Normal [facility], [facility].; [place] [employer], [facility]. MCH (RBC) [Entitic mass] 30.8 pg Normal 27.0 - 33.0 pg [facility].; [place] [employer], [facility]. MCHC (RBC) [Mass/Vol] 33.7 g/dL Normal 32.0 - 36.0 g/dL [facility], [facility].; [place] [employer], [facility]. MCV (RBC) [Entitic vol] 91.5 fL Normal 80.0 - 100.0 fL [facility], [facility].; [facility], [facility]. Monocytes (Bld) [#/Vol] 0.752 10*3/uL Normal 200 - 950 {cells/uL} [facility], [facility].; [place] [employer] Monocytes/100 WBC (Bld) 8.0 %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 Work Phone: 3(265)999-292578 [place] [address] 04-22-2025 15:56-0400 Body weight 81.19 kg Anna Marie Sales PA Work Phone: 5(671)989-735178 [place] [address] 04-22-2025 15:56-0400 Diastolic blood pressure 81 mm[Hg] Anna Marie Sales PA Work Phone: 1(042)045-735316 [place] [address] 04-22-2025 15:56-0400 Systolic blood pressure 119 mm[Hg] Anna Marie Sales PA Work Phone: 8(484)551-788178 [place] [address] 04-07-2025 12:52-0400 Body height 165.1 cm Anna Marie Sales PA Work Phone: 0(296)566-509878 [place] [address] 04-07-2025 12:52-0400 Body mass index (BMI) [Ratio] 29.3 kg/m2 Anna Marie Sales PA Work Phone: 7(353)101-531578 [place] [address] 04-07-2025 12:52-0400 Body weight 79.91 kg Anna Marie Sales PA Work Phone: 4(412)561-767378 [place] [address] 04-07-2025 12:52-0400 Diastolic blood pressure 80 mm[Hg] Anna Marie Sales PA Work Phone: 2(938)507-465378 [place] [address] 04-07-2025 12:52-0400 Systolic blood pressure 117 mm[Hg] Anna Marie Sales PA Work Phone: 0(887)862-042278 [place] [address] 03-31-2025 09:03-0400 Body height 165.1 cm Anna Marie Sales PA Work Phone: 6(578)120-393278 [place] [address] 03-31-2025 09:01-0400 Body mass index (BMI) [Ratio] 29.8 kg/m2 Anna Marie Sales PA Work Phone: 5(742)749-725278 [place] [address] 03-31-2025 09:01-0400 Body weight 81.33 kg Anna Marie Sales PA Work Phone: 9(163)551-393178 [place] [address] 03-11-2025 15:18-0400 Body height 165.1 cm Anna Marie Sales PA Work Phone: 9(464)372-483416 [place] [address] 03-11-2025 15:12-0400 Body mass index (BMI) [Ratio] 29.1 kg/m2 Anna Marie Sales PA Work Phone: 1(450)850-337416 [place] [address] 03-11-2025 15:12-0400 Body weight 79.46 kg Anna Marie Sales PA Work Phone: 1(850)472-082816 [place] [address] 03-11-2025 15:12-0400 Diastolic blood pressure 86 mm[Hg] Anna Marie Sales PA Work Phone: 6(784)[phone] [place] [address] 03-11-2025 15:12-0400 Systolic blood pressure 135 mm[Hg] Anna Marie Sales PA Work Phone: 8(762)692-749551 [address] 03-03-2025 19:21-0400 Body temperature 97.5 [degF] Anna Marie Sales PA Work Phone: 9(763)082-469751 [address] 03-03-2025 19:21-0400 Diastolic blood pressure 80 mm[Hg] Anna Marie Sales PA Work Phone: 7(885)842-446351 [address] 03-03-2025 19:21-0400 Heart rate 71 /min Anna Marie Sales PA Work Phone: 3(188)254-396478 [place] [address] 03-03-2025 19:21-0400 SaO2% (BldA) [Mass fraction] 100 % Anna Marie Sales PA Work Phone: 9(399)408-308816 [place] [address] 03-03-2025 19:21-0400 Systolic blood pressure 133 mm[Hg] Anna Marie Sales PA Work Phone: 9(616)983-945216 [place] [address] 03-03-2025 18:25-0400 Body height 165.1 cm Anna Marie Sales PA Work Phone: 4(211)794-013516 [place] [address] 03-03-2025 18:25-0400 Body mass index (BMI) [Ratio] 28.8 kg/m2 Anna Marie Sales PA Work Phone: 6(015)852-908016 [place] [address] 03-03-2025 18:25-0400 Body weight 78.47 kg Anna Marie Sales PA Work Phone: 0(891)612-203816 [place] [address] 02-09-2025 10:58-0400 Body height 165.1 cm Anna Marie Sales PA Work Phone: [facility] 02-09-2025 10:58-0400 Body mass index (BMI) [Ratio] 28.8 kg/m2 Anna Marie Sales PA Work Phone: [facility] 02-09-2025 10:58-0400 Body weight 78.52 kg Anna Marie Sales PA Work Phone: [facility] 02-09-2025 10:58-0400 Diastolic blood pressure 83 mm[Hg] Anna Marie Sales PA Work Phone: 4(356)416-271216 [place] [address] 02-09-2025 10:58-0400 Systolic blood pressure 129 mm[Hg] Anna Marie Sales PA Work Phone: 1(705)627-957151 [address] 01-15-2025 14:30-0400 Body height 165.1 cm Anna Marie Sales PA Work Phone: 0(634)639-983751 [address] 01-15-2025 14:30-0400 Body mass index (BMI) [Ratio] 28.5 kg/m2 Anna Marie Sales PA Work Phone: 3(488)770-915116 [place] [address] 01-15-2025 14:30-0400 Body weight 77.62 kg Anna Marie Sales PA Work Phone: 2(350)358-318151 [address] 01-15-2025 14:30-0400 Diastolic blood pressure 85 mm[Hg] Anna Marie Sales PA Work Phone: 6(900)[phone] [place] [address] 01-15-2025 14:30-0400 Systolic blood pressure 124 mm[Hg] Anna Marie Sales PA Work Phone: 5(291)171-113616 [place] [address] 01-06-2025 13:56-0400 Diastolic blood pressure 67 mm[Hg] Anna Marie Sales PA Work Phone: 2(904)880-737416 [place] [address] 01-06-2025 13:56-0400 Heart rate 74 /min Anna Marie Sales PA Work Phone: [facility] 01-06-2025 13:56-0400 Respiratory rate 16 /min Anna Marie Sales PA Work Phone: 8(546)884-706516 [place] [address] 01-06-2025 13:56-0400 Systolic blood pressure 122 mm[Hg] Anna Marie Sales PA Work Phone: 5(773)671-594616 [place] [address] 01-06-2025 12:36-0400 Body height 165.1 cm Anna Marie Sales PA Work Phone: 0(058)762-909716 [place] [address] 01-06-2025 12:36-0400 Body mass index (BMI) [Ratio] 27.9 kg/m2 Anna Marie Sales PA Work Phone: 9(762)560-402916 [place] [address] 01-06-2025 12:36-0400 Body temperature 97.1 [degF] Anna Marie Sales PA Work Phone: 4(104)105-764278 [place] [address] 01-06-2025 12:36-0400 Body weight 76.2 kg Anna Marie Sales PA Work Phone: 1(503)326-411978 [place] [address] 01-06-2025 12:36-0400 SaO2% (BldA) [Mass fraction] 99 % Anna Marie Sales PA Work Phone: 0(407)[phone] [place] [address] 12-23-2024 13:20-0400 Body temperature 96.6 [degF] Anna Marie Sales PA Work Phone: 4(237)992-006878 [place] [address] 12-23-2024 13:20-0400 Diastolic blood pressure 65 mm[Hg] Anna Marie Sales PA Work Phone: 1(118)743-667716 [place] [address] 12-23-2024 13:20-0400 Heart rate 73 /min Anna Marie Sales PA Work Phone: 5(280)312-891378 [place] [address] 12-23-2024 13:20-0400 Respiratory rate 16 /min Anna Marie Sales PA Work Phone: 5(501)[phone] [place] [address] 12-23-2024 13:20-0400 Systolic blood pressure 125 mm[Hg] Anna Marie Sales PA Work Phone: 8(475)897-012778 [place] [address] 12-23-2024 12:09-0400 Body height 165.1 cm Anna Marie Sales PA Work Phone: 6(225)909-034416 [place] [address] 12-23-2024 12:09-0400 Body mass index (BMI) [Ratio] 27.4 kg/m2 Anna Marie Sales PA Work Phone: [facility] 12-23-2024 12:09-0400 Body weight 74.84 kg Anna Marie Sales PA Work Phone: [facility] 12-23-2024 12:09-0400 SaO2% (BldA) [Mass fraction] 98 % Anna Marie Sales PA Work Phone: [facility] 12-21-2024 15:20-0400 Body height 165.1 cm Anna Marie Sales PA Work Phone: 9(218)581-456316 [place] [address] 12-21-2024 15:20-0400 Body mass index (BMI) [Ratio] 27.4 kg/m2 Anna Marie Sales PA Work Phone: [facility] 12-21-2024 15:20-0400 Body weight 74.84 kg Anna Marie Sales PA Work Phone: [facility] 12-21-2024 15:20-0400 Diastolic blood pressure 86 mm[Hg] Anna Marie Sales PA Work Phone: [facility] 12-21-2024 15:20-0400 Systolic blood pressure 126 mm[Hg] Anna Marie Sales PA Work Phone: 1(765)724-561316 [place] [address] 12-16-2024 10:04-0400 Body height 167.64 cm Lloyd House LPN [facility], [facility]. 12-16-2024 10:04-0400 Body mass index (BMI) [Ratio] 27.12 kg/m2 Lloyd House LPN [facility], [facility]. 12-16-2024 10:04-0400 Body surface area Derived from formula 1.86 m2 Lloyd House LPN [facility] [place] [facility] 12-16-2024 10:04-0400 Body temperature 99.2 [degF] Lloyd House LPN [facility], [facility].; [facility], [facility]. Comment on above: Method: Tympanic 12-16-2024 10:04-0400 Body weight 76.2 kg Lloyd Ashley House [facility], [facility]. 12-16-2024 10:04-0400 Diastolic blood pressure 88 mm[Hg] Lloydkingston House LPN [facility], [facility].; [facility], [facility]. Comment on above: Patient Position: Sitting; Cuff Location : Right Arm; Cuff Size: Standard 12-16-2024 10:04-0400 Heart rate 92 /min Lloydkingston House LPN [facility], [place]. Comment on above: Pattern: Regular 12-16-2024 10:04-0400 Systolic blood pressure 130 mm[Hg] Lloydkingston House LPN [facility], [facility].; [facility], [facility]. Comment on above: Patient Position: Sitting; Cuff Location : Right Arm; Cuff Size: Standard 11-19-2024 08:43-0400 Body mass index (BMI) [Ratio] 28.3 kg/m2 Anna Marie Sales PA Work Phone: [facility] 11-19-2024 08:43-0400 Body weight 77.28 kg Anna Marie Sales PA Work Phone: [facility] 11-19-2024 08:43-0400 Diastolic blood pressure 86 mm[Hg] Anna Marie Sales PA Work Phone: [facility] 11-19-2024 08:43-0400 Systolic blood pressure 130 mm[Hg] Anna Marie Sales PA Work Phone: [facility] 11-03-2024 10:46-0400 Body mass index (BMI) [Ratio] 28.3 kg/m2 Anna Marie Sales PA Work Phone: [facility] 11-03-2024 10:46-0400 Body weight 77.28 kg Anna Marie Sales PA Work Phone: [facility] 11-03-2024 10:46-0400 Diastolic blood pressure 76 mm[Hg] Anna Marie Sales PA Work Phone: [facility] 11-03-2024 10:46-0400 Systolic blood pressure 118 mm[Hg] Anna Marie GOMEZ Work Phone: [facility] 06-12-2024 10:04-0500 Body height 167.64 cm Madina Jules SUPPLY CHAIN ASSISTANT [facility], [facility].; [facility] 06-12-2024 10:04-0500 Body mass index (BMI) [Ratio] 26.95 kg/m2 Madina Jules [facility], [facility].; [facility], [facility]. 06-12-2024 10:04-0500 Body surface area Derived from formula 1.85 m2 Madina Jules [facility], [facility].; [facility], [facility]. 06-12-2024 10:04-0500 Body weight 75.75 kg Madina Jules SUPPLY CHAIN ASSISTANT [facility], [facility].; [place] [facility], [facility]. 06-12-2024 10:04-0500 Diastolic blood pressure 85 mm[Hg] Madina Jules SUPPLY CHAIN ASSISTANT [facility], [facility].; [place] [facility], [place]. Comment on above: Patient Position: Sitting; Cuff Location : Left Arm; Cuff Size: Standard 06-12-2024 10:04-0500 Heart rate 73 /min Madina Jules [facility], [facility].; [place] [facility], [place]. Comment on above: Pattern: Regular 06-12-2024 10:04-0500 Systolic blood pressure 125 mm[Hg] Madina Jules [facility], [facility].; [place] [facility], [facility]. Comment on above: Patient Position: Sitting; Cuff Location : Left Arm; Cuff Size: Standard 03-11-2024 07:47-0400 Body weight 71.22 kg Elijah Lyman APRN.CHIEF INFORMATION OFFICER Work Phone: [facility] 03-11-2024 07:47-0400 Diastolic blood pressure 80 mm[Hg] Elijah Lyman APRN.CHIEF INFORMATION OFFICER Work Phone: [facility] 03-11-2024 07:47-0400 Systolic blood pressure 122 mm[Hg] Elijah Lyman APRN.CHIEF INFORMATION OFFICER Work Phone: [facility] 11-28-2022 09:130400 Body height 167.64 cm Lloyd Owenach [facility], [facility]. 11-28-2022 09:13-0400 Body mass index (BMI) [Ratio] 22.43 kg/m2 Lloyd House [facility] [place] [facility] 11-28-2022 09:130400 Body surface area Derived from formula 1.71 m2 Lloyd House [facility], [facility].; [place] [facility], [facility]. 11-28-2022 09:130400 Body weight 63.05 kg Lloyd House [facility], [facility].; [place] [facility], [facility]. 11-28-2022 09:13-0400 Diastolic blood pressure 84 mm[Hg] Lloyd House [facility] [employer], [place]. Comment on above: Patient Position: Sitting; Cuff Location : Left Arm; Cuff Size: Standard 11-28-2022 09:13-0400 Heart rate 78 /min Lloyd House [facility], [place]. Comment on above: Pattern: Regular 11-28-2022 09:13-0400 Systolic blood pressure 122 mm[Hg] Lloyd House SUPPLY CHAIN ASSISTANT [facility] [employer], [place]. Comment on above: Patient Position: Sitting; Cuff Location : Left Arm; Cuff Size: Standard 07-31-2022 11:010500 Body height 167.64 cm Maay Maxwell MA [place] [facility], [facility].; [employer]. 07-31-2022 11:01-0500 Body mass index (BMI) [Ratio] 21.63 kg/m2 Maya Maxwell MA [place] [facility], [place].; [place] [employer]. 07-31-2022 11:010500 Body surface area Derived from formula 1.69 m2 Maya Maxwell MA [place] [facility], [place].; [employer]. 07-31-2022 11:0500 Body temperature 97.9 [degF] Maya Maxwell MA [facility]. Comment on above: Method: Tympanic 07-31-2022 11:01-0500 Body weight 60.78 kg Maya Maxwell MA [facility].; [facility] 07-31-2022 11:01-0500 Diastolic blood pressure 87 mm[Hg] Maya Maxwell MA [facility].; [facility]. Comment on above: Patient Position: Sitting; Cuff Location : Left Arm; Cuff Size: Standard 07-31-2022 11:01-0500 Heart rate 125 /min Maya Maxwell MA [facility].; [facility]. Comment on above: Pattern: Regular 07-31-2022 11:01-0500 Inhaled oxygen concentration 20 % Maya Maxwell MA [facility].; [facility]. Comment on above: Room air 07-31-2022 11:01-0500 Inhaled oxygen concentration 21 % Maya Maxwell MA [facility].; [facility]. Comment on above: Room air 07-31-2022 11:01-0500 SaO2% (BldA) [Mass fraction] 98 % Maya Maxwell MA [facility].; [facility]. 07-31-2022 11:01-0500 Systolic blood pressure 126 mm[Hg] Maya Maxwell MA [facility].; [facility]. Comment on above: Patient Position: Sitting; Cuff Location : Left Arm; Cuff Size: Standard 01-29-2022 11:15-0400 Body height 167.64 cm Sandra Longoria MA [facility].; [facility]. 01-29-2022 11:15-0400 Body mass index (BMI) [Ratio] 20.98 kg/m2 Sandra Longoria MA [facility].; [facility], [facility]. 01-29-2022 11:15-0400 Body surface area Derived from formula 1.67 m2 Sandra Longoria MA [facility], [facility].; [facility]. 01-29-2022 11:15-0400 Body weight 58.97 kg Sandra Longoria MA [facility].; [employer]. 01-29-2022 11:15-0400 Diastolic blood pressure 84 mm[Hg] Sandra Longoria MA [facility].; [employer]. Comment on above: Patient Position: Sitting; Cuff Location : Left Arm; Cuff Size: Standard 01-29-2022 11:15-0400 Heart rate 84 /min Sandra Longoria MA [facility] [employer]. Comment on above: Pattern: Regular 01-29-2022 11:15-0400 Systolic blood pressure 119 mm[Hg] Sandra Longoria MA [facility].; [employer]. Comment on above: Patient Position: Sitting; Cuff Location : Left Arm; Cuff Size: Standard 12-08-2021 14:08-0400 Body height 167.64 cm Lloyd House [facility], [facility].; [place] [employer] [facility]. 12-08-2021 14:08-0400 Body mass index (BMI) [Ratio] 20.98 kg/m2 Lloyd House [facility].; [employer]. 12-08-2021 14:08-0400 Body surface area Derived from formula 1.67 m2 Lloyd House SUPPLY CHAIN ASSISTANT [facility], [facility].; [email or web address] [facility]. 12-08-2021 14:08-0400 Body weight 58.97 kg Lloyd House SUPPLY CHAIN ASSISTANT [facility].; [email or web address] [facility]. 12-08-2021 14:08-0400 Diastolic blood pressure 80 mm[Hg] Lloyd House SUPPLY CHAIN ASSISTANT [facility].; [employer]. Comment on above: Patient Position: Sitting; Cuff Location : Left Arm; Cuff Size: Standard 12-08-2021 14:08-0400 Heart rate 97 /min Lloyd House SUPPLY CHAIN ASSISTANT [facility].; [employer]. Comment on above: Pattern: Regular 12-08-2021 14:08-0400 Systolic blood pressure 122 mm[Hg] Lloyd M Lacy [facility]. Comment on above: Patient Position: Sitting; Cuff Location : Left Arm; Cuff Size: Standard 06-09-2021 10:37-0500 Body height 166.37 cm Lloyd House [facility] [employer]. 06-09-2021 10:37-0500 Body mass index (BMI) [Ratio] 21.3 kg/m2 Lloyd House [facility].; [place] [employer]. 06-09-2021 10:37-0500 Body surface area Derived from formula 1.66 m2 Lloyd Ramirez Lacy [facility].; [employer]. 06-09-2021 10:37-0500 Body temperature 99.3 [degF] Lloyd Ramirez Lacy [facility].; [employer]. Comment on above: Method: Tympanic 06-09-2021 10:37-0500 Body weight 58.97 kg Lloyd House [facility].; [employer]. 06-09-2021 10:37-0500 Diastolic blood pressure 84 mm[Hg] Lloyd House [facility].; [employer]. Comment on above: Patient Position: Sitting; Cuff Location : Left Arm; Cuff Size: Standard 06-09-2021 10:37-0500 Heart rate 78 /min Lloyd House SUPPLY CHAIN ASSISTANT [facility].; [employer]. Comment on above: Pattern: Regular 06-09-2021 10:37-0500 Inhaled oxygen concentration 20 % Lloyd Balabach [facility].; [employer]. Comment on above: Room air 06-09-2021 10:37-0500 Inhaled oxygen concentration 21 % Lloyd Balabach [facility], [place].; [employer]. Comment on above: Room air 06-09-2021 10:37-0500 SaO2% (BldA) [Mass fraction] 98 % Lloyd [facility]abach [facility].; [facility]. 06-09-2021 10:37-0500 Systolic blood pressure 122 mm[Hg] Lloyd House LPN [facility].; [facility]. Comment on above: Patient Position: Sitting; Cuff Location : Left Arm; Cuff Size: Standard 02-17-2021 08:50-0400 Body height 166.37 cm Sandra Gauthier LPN [facility], [facility].; [facility], [facility]. 02-17-2021 08:50-0400 Body mass index (BMI) [Ratio] 20.81 kg/m2 Sandra Gauthier LPN [facility], [facility].; [facility], [facility]. 02-17-2021 08:50-0400 Body surface area Derived from formula 1.64 m2 Sandra Gauthier LPN [facility], [facility].; [facility], [facility]. 02-17-2021 08:50-0400 Body temperature 98.4 [degF] Sandra Gauthier LPN [facility], [facility].; [place] [employer], [place]. Comment on above: Method: Tympanic 02-17-2021 08:50-0400 Body weight 57.61 kg Sandra Gauthier LPN [facility], [facility].; [place] [facility], [facility]. 02-17-2021 08:50-0400 Diastolic blood pressure 78 mm[Hg] Sandra Gauthier LPN [facility], [facility].; [employer]. Comment on above: Patient Position: Sitting; Cuff Location : Left Arm; Cuff Size: Standard 02-17-2021 08:50-0400 Heart rate 60 /min Sandra Gauthier LPN [facility], [facility].; [place] [employer]. Comment on above: Pattern: Regular 02-17-2021 08:50-0400 Systolic blood pressure 117 mm[Hg] Sandra Gauthier LPN [facility], [facility].; [place] [employer]. Comment on above: Patient Position: Sitting; Cuff Location : Left Arm; Cuff Size: Standard 08-05-2020 14:59-0500 Body height 166.37 cm Jaziel Nam LPN [facility], [facility].; [place] [facility]. 08-05-2020 14:59-0500 Body mass index (BMI) [Percentile] Per age and sex 52 % Jaziel Nam SUPPLY CHAIN ASSISTANT [facility], [facility].; [email or web address] [facility]. 08-05-2020 14:59-0500 Body mass index (BMI) [Ratio] 21.8 kg/m2 Anastasiiae L Viv SUPPLY CHAIN ASSISTANT [place] [facility] [employer]. 08-05-2020 14:59-0500 Body surface area Derived from formula 1.67 m2 Anastasiiae Nereyda Nam SUPPLY CHAIN ASSISTANT [place] [facility].; [employer]. 08-05-2020 14:59-0500 Body temperature 98.7 [degF] Anastasiiae Nereyda Nam SUPPLY CHAIN ASSISTANT [facility], [facility].; [employer]. Comment on above: Method: Tympanic 08-05-2020 14:59-0500 Body weight 60.33 kg Anastasiiae Nereyda Nam SUPPLY CHAIN ASSISTANT [place] [facility] [employer]. 08-05-2020 14:59-0500 Diastolic blood pressure 91 mm[Hg] Anastasiiae Nereyda Nam SUPPLY CHAIN ASSISTANT [email or web address] [facility].; [employer]. Comment on above: Patient Position: Sitting; Cuff Location : Right Arm; Cuff Size: Standard 08-05-2020 14:59-0500 Heart rate 76 /min Jaziel Nam LPN [place] [facility] [employer]. Comment on above: Pattern: Regular 08-05-2020 14:59-0500 Systolic blood pressure 135 mm[Hg] Anastasiiae Nereyda Nam LPN [employer], [facility].; [employer]. Comment on above: Patient Position: Sitting; Cuff Location : Right Arm; Cuff Size: Standard 08-18-2019 13:40-0500 Body height 166.37 cm Anastasiiae Nereyda Nam SUPPLY CHAIN ASSISTANT [employer], [place].; [employer]. 08-18-2019 13:40-0500 Body mass index (BMI) [Percentile] Per age and sex 46 % Anastasiiae Nereyda Nam SUPPLY CHAIN ASSISTANT [employer].; [employer]. 08-18-2019 13:40-0500 Body mass index (BMI) [Ratio] 21.14 kg/m2 Anastasiiae Nereyda Nam SUPPLY CHAIN ASSISTANT [place] [facility] [employer] 08-18-2019 13:40-0500 Body surface area Derived from formula 1.65 m2 Anastasiiae Nereyda Nam [facility] [employer] 08-18-2019 13:40-0500 Body temperature 99 [degF] Anastasiiae L Viv SUPPLY CHAIN ASSISTANT [place] [facility] [employer], [place]. Comment on above: Method: Tympanic 08-18-2019 13:40-0500 Body weight 58.51 kg Jaziel Nam [facility] [employer] 06-08-2019 09:01-0500 Body height 166.37 cm Rita English LPN [place] [facility] [employer], [place]. 06-08-2019 09:01-0500 Body temperature 98.5 [degF] Rita English [facility] [employer] [employer], [place]. Comment on above: Method: Tympanic 06-08-2019 09:01-0500 Diastolic blood pressure 85 mm[Hg] Rita English [facility] [employer], [place]. Comment on above: Patient Position: Sitting; Cuff Location : Left Arm; Cuff Size: Standard 06-08-2019 09:01-0500 Heart rate 90 /min Rita English [facility] [employer], [place]. Comment on above: Pattern: Regular 06-08-2019 09:01-0500 Systolic blood pressure 119 mm[Hg] Rita English [facility]Un[facility], [facility] [employer], [place]. Comment on above: Patient Position: Sitting; Cuff Location : Left Arm; Cuff Size: Standard 10-30-2018 08:11-0400 Body temperature 98 [degF] Rita English LPN [employer] [employer]. Comment on above: Method: Tympanic 10-30-2018 08:11-0400 Body weight 53.52 kg Ritafrancisco English LPN [facility] [employer], [place]. 10-30-2018 08:11-0400 Inhaled oxygen concentration 20 % Rita English [facility] [employer]. Comment on above: Room air 10-30-2018 08:11-0400 Inhaled oxygen concentration 21 % Rita English [facility] [employer]. Comment on above: Room air 10-30-2018 08:11-0400 SaO2% (BldA) [Mass fraction] 97 % Rita English [facility] [employer]. 06-20-2018 10:07-0500 Body height 166.37 cm Rita English [facility] [employer], [place]. 06-20-2018 10:07-0500 Body mass index (BMI) [Percentile] Per age and sex 41 % Rita English [facility] [employer], [place]. 06-20-2018 10:07-0500 Body mass index (BMI) [Ratio] 20.41 kg/m2 Ritafrancisco English [facility] [employer], [place]. 06-20-2018 10:07-0500 Body surface area Derived from formula 1.63 m2 Rita English [facility] [place] [employer], [place]. 06-20-2018 10:07-0500 Body temperature 99 [degF] Rita English [facility], [facility].; [employer]. Comment on above: Method: Tympanic 06-20-2018 10:07-0500 Body weight 56.5 kg Rita English [facility] [employer]. 06-20-2018 10:07-0500 Heart rate 84 /min [facility], [place].; [employer]. Comment on above: Pattern: Regular 06-20-2018 10:07-0500 Inhaled oxygen concentration 20 % Rita English SUPPLY CHAIN ASSISTANT [employer]. Comment on above: Room air 06-20-2018 10:07-0500 Inhaled oxygen concentration 21 % Rita Rahmankwame REINOSO [employer]. Comment on above: Room air 06-20-2018 10:07-0500 SaO2% (BldA) [Mass fraction] 98 % Rita Rahmankwame REINOSO [employer]. 04-22-2018 09:59-0400 Body height 166.37 cm Anna Marie Sales PA-C Work Phone: [employer]. 04-22-2018 09:59-0400 Body mass index (BMI) [Percentile] Per age and sex 45 % Anna Marie Sales PA-C Work Phone: [employer]. 04-22-2018 09:59-0400 Body mass index (BMI) [Ratio] 20.65 kg/m2 Anna Marie Sales PA-C Work Phone: [employer]. 04-22-2018 09:59-0400 Body surface area Derived from formula 1.63 m2 Anna Marie Sales PA-C Work Phone: [employer]. 04-22-2018 09:59-0400 Body temperature 99.2 [degF] Anna Marie Sales PA-C Work Phone: [employer]. 04-22-2018 09:59-0400 Body weight 57.15 kg Anna Marie Sales PA-C Work Phone: [employer].; [employer]. 04-22-2018 09:59-0400 Inhaled oxygen concentration 20 % Anna Marie Sales PA-C Work Phone: [employer].; [employer]. Comment on above: Room air 04-22-2018 09:59-0400 Inhaled oxygen concentration 21 % Anna Marie GOMEZ-Gia Work Phone: [employer]; [employer]. Comment on above: Room air 04-22-2018 09:59-0400 SaO2% (BldA) [Mass fraction] 97 % Anna Marie GOME[employer]ia Work Phone: [employer]; [employer]. 04-14-2018 14:59-0400 Body height 166.37 cm Conchita Hawthorne RN [employer]. 04-14-2018 14:59-0400 Body mass index (BMI) [Percentile] Per age and sex 45 % Conchita Hawthorne RN [employer]. 04-14-2018 14:59-0400 Body mass index (BMI) [Ratio] 20.66 kg/m2 Conchita Hawthorne RN [employer]. 04-14-2018 14:59-0400 Body surface area Derived from formula 1.64 m2 Conchita Hawthorne RN [employer]. 04-14-2018 14:59-0400 Body temperature 99.3 [degF] Conchita Hawthorne RN [employer]. Comment on above: Method: Tympanic 04-14-2018 14:59-0400 Body weight 57.2 kg Conchita Hawthorne RN [employer]. 01-28-2018 09:25-0400 Body height 309.88 cm Jaziel Nam LPN [employer]. 01-28-2018 09:25-0400 Body mass index (BMI) [Percentile] Per age and sex 0 % Jaziel Nam LPN [employer]. 01-28-2018 09:25-0400 Body mass index (BMI) [Ratio] 3.09 kg/m2 Jaziel Nam LPN [employer].; [employer]. 01-28-2018 09:25-0400 Body surface area Derived from formula 1.94 m2 Neilee L Vess SUPPLY CHAIN ASSISTANT [place] [employer] [place]. 01-28-2018 09:25-0400 Body weight 29.71 kg Neilee L Vess SUPPLY CHAIN ASSISTANT [place] [employer]. 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 Comment on above: Patient Position: Sitting; Cuff Location : Left Arm; Cuff Size: Standard 01-28-2018 09:25-0400 Heart rate 67 /min Neilee L Vess SUPPLY CHAIN ASSISTANT [place] [employer], [employer]. 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 Comment on above: Patient Position: Sitting; Cuff Location : Left Arm; Cuff Size: Standard 11-06-2016 08:32-0400 Body temperature 98.8 [degF] Neilee L Vess SUPPLY CHAIN ASSISTANT [employer], [place].; [employer]. Comment on above: Method: Tympanic 11-06-2016 08:32-0400 Body weight 55.79 kg Neilee L Vess SUPPLY CHAIN ASSISTANT [employer], [place] 11-06-2016 08:32-0400 Diastolic blood pressure 88 mm[Hg] Neilee L Vess SUPPLY CHAIN ASSISTANT [employer], [place].; [employer]. Comment on above: Patient Position: Sitting; Cuff Location : Right Arm; Cuff Size: Standard 11-06-2016 08:32-0400 Heart rate 70 /min Neilee L Vess SUPPLY CHAIN ASSISTANT [employer], [place].; [employer]. Comment on above: Pattern: Regular 11-06-2016 08:32-0400 Systolic blood pressure 141 mm[Hg] Neilee L Vess SUPPLY CHAIN ASSISTANT [employer].; [employer]. Comment on above: Patient Position: Sitting; Cuff Location : Right Arm; Cuff Size: Standard 10-18-2016 14:55-0400 Body height 166.37 cm Conchita Hawthorne RN [employer]. 10-18-2016 14:55-0400 Body mass index (BMI) [Percentile] Per age and sex 50 % Conchita Hawthorne RN [employer]. 10-18-2016 14:55-0400 Body mass index (BMI) [Ratio] 20.37 kg/m2 Conchita Hawthorne RN [employer]. 10-18-2016 14:55-0400 Body surface area Derived from formula 1.63 m2 Conchita Hawthorne RN [employer].; [employer]. 10-18-2016 14:55-0400 Body temperature 98.2 [degF] Conchita Hawthorne RN [employer]. Comment on above: Method: Tympanic 10-18-2016 14:55-0400 Body weight 56.38 kg Conchita Hawthorne RN [employer].; [employer]. 10-04-2016 14:42-0400 Body height 166.37 cm Conchita Hawthorne RN [employer]. 10-04-2016 14:42-0400 Body mass index (BMI) [Percentile] Per age and sex 48 % Conchita Hawthorne RN [employer]. 10-04-2016 14:42-0400 Body mass index (BMI) [Ratio] 20.16 kg/m2 Conchita Hawthorne RN [employer].; [employer]. 10-04-2016 14:42-0400 Body surface area Derived from formula 1.62 m2 Conchita Hawthorne RN [employer].; [employer]. 10-04-2016 14:42-0400 Body temperature 99.8 [degF] Conchita Hawthorne RN [employer]. Comment on above: Method: Tympanic 10-04-2016 14:42-0400 Body weight 55.79 kg Conchita Hawthorne RN [employer].; [employer]. 05-09-2016 13:18-0400 Body height 166.37 cm Conchita Hawthorne RN [employer].; [employer]. 05-09-2016 13:18-0400 Body mass index (BMI) [Percentile] Per age and sex 43 % Conchita Hawthorne RN [employer]. 05-09-2016 13:18-0400 Body mass index (BMI) [Ratio] 19.62 kg/m2 Conchita Hawthorne RN [employer].; [employer]. 05-09-2016 13:18-0400 Body surface area Derived from formula 1.6 m2 Conchita Hawthorne RN [employer].; [employer]. 05-09-2016 13:18-0400 Body temperature 99.3 [degF] Conchita Hawthorne RN [employer]. Comment on above: Method: Tympanic 05-09-2016 13:18-0400 Body weight 54.3 kg Conchita Hawthorne RN [employer].; [employer]. 05-09-2016 13:18-0400 Heart rate 118 /min Conchita Hawthorne RN [employer]. Comment on above: Pattern: Regular 05-09-2016 13:18-0400 Inhaled oxygen concentration 20 % Conchita Hawthorne RN [employer]. Comment on above: Room air 05-09-2016 13:18-0400 Inhaled oxygen concentration 21 % Conchita Hawthorne RN [employer]. Comment on above: Room air 05-09-2016 13:18-0400 SaO2% (BldA) [Mass fraction] 97 % Conchita Hawthorne RN [employer].; [employer]. 04-04-2016 10:44-0400 Body height 166.37 cm Mandi Maldonado RN Work Phone: [employer].; [employer]. 04-04-2016 10:44-0400 Body mass index (BMI) [Percentile] Per age and sex 40 % Mandi Maldonado RN Work Phone: [employer]; [employer]. 04-04-2016 10:44-0400 Body mass index (BMI) [Ratio] 19.34 kg/m2 Mandi Maldonado RN Work Phone: [employer].; [employer]. 04-04-2016 10:44-0400 Body surface area Derived from formula 1.59 m2 Mandi Maldonado RN Work Phone: [employer]; [employer]. 04-04-2016 10:44-0400 Body temperature 99.1 [degF] Mandi Maldonado RN Work Phone: [employer]; [employer]. Comment on above: Method: Tympanic 04-04-2016 10:44-0400 Body weight 53.52 kg Mandi Maldonado RN Work Phone: [employer]; [employer]. 04-04-2016 10:44-0400 Inhaled oxygen concentration 20 % Mandi Maldonado RN Work Phone: [employer]; [employer]. Comment on above: Room air 04-04-2016 10:44-0400 Inhaled oxygen concentration 21 % Mandi Maldonado RN Work Phone: [employer]; [employer]. Comment on above: Room air 04-04-2016 10:44-0400 SaO2% (BldA) [Mass fraction] 99 % Mandi Maldonado RN Work Phone: [employer]; [employer]. 03-21-2016 10:53-0400 Body height 165.74 cm Conchita Hawthorne RN [employer]. 03-21-2016 10:53-0400 Body mass index (BMI) [Percentile] Per age and sex 49 % Conchita Hawthorne RN [place] [employer]. 03-21-2016 10:53-0400 Body mass index (BMI) [Ratio] 19.96 kg/m2 Conchita Hawthorne RN [place] [employer].; [employer]. 03-21-2016 10:53-0400 Body surface area Derived from formula 1.6 m2 Conchita Hawthorne RN [employer].; [employer]. 03-21-2016 10:53-0400 Body temperature 98 [degF] Conchita Hawthorne RN [employer].; [employer]. Comment on above: Method: Tympanic 03-21-2016 10:53-0400 Body weight 54.84 kg Conchita Hawthorne RN [employer].; [employer]. 03-21-2016 10:53-0400 Diastolic blood pressure 73 mm[Hg] Conchita Hawthorne RN [employer].; [employer]. Comment on above: Patient Position: Sitting; Cuff Location : Left Arm; Cuff Size: Standard 03-21-2016 10:53-0400 Heart rate 59 /min Conchita Hawthorne RN [employer].; [employer]. Comment on above: Pattern: Regular 03-21-2016 10:53-0400 Systolic blood pressure 112 mm[Hg] Conchita Hawthorne RN [employer].; [employer]. Comment on above: Patient Position: Sitting; Cuff Location : Left Arm; Cuff Size: Standard 11-07-2015 11:47-0400 Body height 163.83 cm Anna Marie Sales PA-C Work Phone: [employer]; [employer]. 11-07-2015 11:47-0400 Body mass index (BMI) [Percentile] Per age and sex 44 % Anna Marie Sales PA-C Work Phone: [employer]; [employer]. 11-07-2015 11:47-0400 Body mass index (BMI) [Ratio] 19.43 kg/m2 Anna Marie Sales PA-C Work Phone: [employer]; [employer]. 11-07-2015 11:47-0400 Body surface area Derived from formula 1.55 m2 Anna Marie Sales PA-C Work Phone: [employer]; [employer]. 11-07-2015 11:47-0400 Body temperature 99.6 [degF] Anna Marie Sales PA-C Work Phone: [employer]; [employer] Comment on above: Method: Tympanic 11-07-2015 11:47-0400 Body weight 52.16 kg Anna Marie Sales PA-C Work Phone: [employer]; [employer] 11-07-2015 11:47-0400 Diastolic blood pressure 66 mm[Hg] Anna Marie Sales PA-C Work Phone: [employer]; [employer] Comment on above: Patient Position: Sitting; Cuff Location : Right Arm; Cuff Size: Standard 11-07-2015 11:47-0400 Heart rate 69 /min Anna Marie Sales PA-C Work Phone: [employer]; [employer] Comment on above: Pattern: Regular 11-07-2015 11:47-0400 Systolic blood pressure 128 mm[Hg] Anna Marie Sales PA-C Work Phone: [employer]; [employer] Comment on above: Patient Position: Sitting; Cuff Location : Right Arm; Cuff Size: Standard 02-09-2015 14:51-0400 Body height 164.47 cm Conchita Hawthorne RN [employer]. 02-09-2015 14:51-0400 Body mass index (BMI) [Percentile] Per age and sex 41 % Conchita Hawthorne RN [employer]. 02-09-2015 14:51-0400 Body mass index (BMI) [Ratio] 18.78 kg/m2 [facility].; [employer]. 02-09-2015 14:51-0400 Body surface area Derived from formula 1.54 m2 Conchita Hawthorne RN [facility].; [employer]. 02-09-2015 14:51-0400 Body temperature 98.4 [degF] Conchita Hawthorne RN [place] [facility] [facility].; [employer]. Comment on above: Method: Tympanic 02-09-2015 14:51-0400 Body weight 50.8 kg Conchita Hawthorne RN [place] [facility] [facility].; [employer]. 02-09-2015 14:51-0400 Diastolic blood pressure 62 mm[Hg] Conchita Hawthorne RN [place] [employer] [facility].; [employer]. Comment on above: Patient Position: Sitting; Cuff Location : Left Arm; Cuff Size: Standard 02-09-2015 14:51-0400 Heart rate 62 /min Conchita Hawthorne RN [place] [employer] [facility].; [employer]. Comment on above: Pattern: Regular 02-09-2015 14:51-0400 Systolic blood pressure 104 mm[Hg] Conchita Hawthorne RN [place] [employer].; [employer]. Comment on above: Patient Position: Sitting; Cuff Location : Left Arm; Cuff Size: Standard 11-13-2013 08:09-0400 Body height 162.56 cm Rita English LPN [place] [facility] [facility], [facility].; [employer]. 11-13-2013 08:09-0400 Body mass index (BMI) [Percentile] Per age and sex 31 % Rita English LPN [place] [employer].; [employer]. 11-13-2013 08:09-0400 Body mass index (BMI) [Ratio] 17.38 kg/m2 Rita English LPN [place] [facility] [facility].; [employer]. 11-13-2013 08:09-0400 Body surface area Derived from formula 1.46 m2 Rita English LPN [place] [facility] [facility].; [employer]. 11-13-2013 08:09-0400 Body temperature 98.3 [degF] Rita Tameka REINOSO [employer].; [employer]. Comment on above: Method: Tympanic 11-13-2013 08:09-0400 Body weight 45.93 kg Rita Rahmankwame REINOSO [employer].; [employer]. 01-30-2013 11:02-0400 Body height 158.75 cm Mandi Maldonado RN Work Phone: [employer].; [employer]. 01-30-2013 11:02-0400 Body mass index (BMI) [Percentile] Per age and sex 28 % Mandi Maldonado RN Work Phone: [employer].; [employer]. 01-30-2013 11:02-0400 Body mass index (BMI) [Ratio] 16.74 kg/m2 Mandi Maldonado RN Work Phone: [employer].; [employer]. 01-30-2013 11:02-0400 Body surface area Derived from formula 1.39 m2 Mandi Maldonado RN Work Phone: [employer].; [employer]. 01-30-2013 11:02-0400 Body weight 42.18 kg Mandi Maldonado RN Work Phone: [employer].; [employer]. 01-30-2013 11:02-0400 Diastolic blood pressure 70 mm[Hg] Mandi Maldonado RN Work Phone: [employer].; [employer]. Comment on above: Patient Position: Sitting; Cuff Location : Right Arm; Cuff Size: Standard 01-30-2013 11:02-0400 Heart rate 70 /min Mandi Maldonado RN Work Phone: [employer].; [employer]. Comment on above: Pattern: Regular 01-30-2013 11:02-0400 Systolic blood pressure 109 mm[Hg] aMndi Maldonado RN Work Phone: [facility].; [employer]. Comment on above: Patient Position: Sitting; Cuff Location : Right Arm; Cuff Size: Standard 08-01-2012 08:43-0500 Body height 152.4 cm Rita English SUPPLY CHAIN ASSISTANT [facility], [facility].; [employer]. 08-01-2012 08:43-0500 Body mass index (BMI) [Percentile] Per age and sex 61 % Rita English [facility].; [employer]. 08-01-2012 08:43-0500 Body mass index (BMI) [Ratio] 18.6 kg/m2 Rita English [facility], [employer] [place]. 08-01-2012 08:43-0500 Body surface area Derived from formula 1.36 m2 Rita Curieldaniel [facility], [employer].; [employer]. 08-01-2012 08:43-0500 Body temperature 98 [degF] Rita English [facility].; [employer]. Comment on above: Method: Tympanic 08-01-2012 08:43-0500 Body weight 43.21 kg Rita English SUPPLY CHAIN ASSISTANT [facility], [facility].; [employer] 08-01-2012 08:43-0500 Inhaled oxygen concentration 20 % Rita Juddbobby [facility], [employer].; [employer]. Comment on above: Room air 08-01-2012 08:43-0500 Inhaled oxygen concentration 21 % Rita English SUPPLY CHAIN ASSISTANT [place] [employer] [facility], [employer].; [employer]. Comment on above: Room air 08-01-2012 08:43-0500 SaO2% (BldA) [Mass fraction] 99 % Rita English [facility], [employer] 05-07-2012 08:39-0400 Body height 152.4 cm Anna Marie Sales PA-C Work Phone: [employer]; [employer] 05-07-2012 08:39-0400 Body mass index (BMI) [Percentile] Per age and sex 39 % Anna Marie Sales PA-C Work Phone: [employer]; [employer]. 05-07-2012 08:39-0400 Body mass index (BMI) [Ratio] 16.99 kg/m2 Anna Marie Sales PA-C Work Phone: [employer]; [employer] 05-07-2012 08:39-0400 Body surface area Derived from formula 1.31 m2 Anna Marie Sales PA-C Work Phone: [employer]; [employer] 05-07-2012 08:39-0400 Body temperature 98.8 [degF] Anna Marie Sales PA-C Work Phone: [employer]; [employer]. Comment on above: Method: Tympanic 05-07-2012 08:39-0400 Body weight 39.46 kg Anna Marie Sales PA-C Work Phone: [employer]; [employer] 05-07-2012 08:39-0400 Inhaled oxygen concentration 20 % Anna Marie Sales PA-C Work Phone: [employer]; [employer] Comment on above: Room air 05-07-2012 08:39-0400 Inhaled oxygen concentration 21 % Anna Marie Sales PA-C Work Phone: [employer]; [employer] Comment on above: Room air 05-07-2012 08:39-0400 SaO2% (BldA) [Mass fraction] 99 % Anna Marie Sales PA-C Work Phone: [employer]; [employer] 04-30-2012 08:33-0400 Body height 152.4 cm Lloyd House LPN [employer]; [employer] 04-30-2012 08:33-0400 Body mass index (BMI) [Percentile] Per age and sex 39 % Lloyd House [facility].; [employer]. 04-30-2012 08:33-0400 Body mass index (BMI) [Ratio] 16.99 kg/m2 Lloyd House [facility] [employer]. 04-30-2012 08:33-0400 Body surface area Derived from formula 1.31 m2 Lloyd House [facility].; [employer]. 04-30-2012 08:33-0400 Body temperature 99.8 [degF] Lloyd Ramirez Lacy [facility].; [employer]. Comment on above: Method: Tympanic 04-30-2012 08:33-0400 Body weight 39.46 kg Lloyd Ramirez L[facility].; [employer]. 11-22-2011 13:28-0400 Body height 149.86 cm Kristin Elisa SUPPLY CHAIN ASSISTANT Work Phone: [employer].; [employer]. 11-22-2011 13:28-0400 Body mass index (BMI) [Percentile] Per age and sex 46 % Kristin Pérez SUPPLY CHAIN ASSISTANT Work Phone: [employer].; [employer]. 11-22-2011 13:28-0400 Body mass index (BMI) [Ratio] 17.17 kg/m2 Kristin Pérez SUPPLY CHAIN ASSISTANT Work Phone: [employer].; [employer]. 11-22-2011 13:28-0400 Body surface area Derived from formula 1.28 m2 Kristin Elisa SUPPLY CHAIN ASSISTANT Work Phone: [employer].; [employer]. 11-22-2011 13:28-0400 Body temperature 98.7 [degF] Kristin Elisa SUPPLY CHAIN ASSISTANT Work Phone: [employer].; [employer]. Comment on above: Method: Tympanic 11-22-2011 13:28-0400 Body weight 38.56 kg Kristin Pérez LPN Work Phone: [employer].; [employer]. 11-22-2011 13:28-0400 Heart rate 98 /min Kristin Pérez LPN Work Phone: [employer].; [employer]. Comment on above: Pattern: Regular 11-22-2011 13:28-0400 Inhaled oxygen concentration 20 % Kristin Pérez LPN Work Phone: [employer].; [employer]. Comment on above: Room air 11-22-2011 13:28-0400 Inhaled oxygen concentration 21 % Kristin Pérez LPN Work Phone: [employer].; [employer]. Comment on above: Room air 11-22-2011 13:28-0400 SaO2% (BldA) [Mass fraction] 97 % Kristin Pérez LPN Work Phone: [employer].; [employer]. 07-26-2011 08:48-0500 Body height 146.05 cm Conchita Hawthorne RN [employer].; [employer]. 07-26-2011 08:48-0500 Body mass index (BMI) [Percentile] Per age and sex 56 % Conchita Hawthorne RN [place] [employer]. 07-26-2011 08:48-0500 Body mass index (BMI) [Ratio] 17.61 kg/m2 Conchita Hawthorne RN [employer].; [employer]. 07-26-2011 08:48-0500 Body surface area Derived from formula 1.24 m2 Conchita Hawthorne RN [employer].; [employer]. 07-26-2011 08:48-0500 Body temperature 97 [degF] Conchita Hawthorne RN [employer].; [employer]. Comment on above: Method: Tympanic 07-26-2011 08:48-0500 Body weight 37.56 kg Conchita Hawthorne RN [facility], [facility].; [facility]. 06-26-2011 15:45-0500 Body height 146.05 cm Neilee L Vess SUPPLY CHAIN ASSISTANT [facility].; [place] [facility] [facility]. 06-26-2011 15:45-0500 Body mass index (BMI) [Percentile] Per age and sex 61 % Neilee L Vess SUPPLY CHAIN ASSISTANT [facility].; [place] [employer], [facility]. 06-26-2011 15:45-0500 Body mass index (BMI) [Ratio] 17.86 kg/m2 Neilee L Vess SUPPLY CHAIN ASSISTANT [facility], [facility].; [place] [employer] [facility]. 06-26-2011 15:45-0500 Body surface area Derived from formula 1.25 m2 Neilee L Vess SUPPLY CHAIN ASSISTANT [facility], [facility].; [place] [facility]. 06-26-2011 15:45-0500 Body temperature 98.6 [degF] Neilee L Vess SUPPLY CHAIN ASSISTANT [facility].; [employer] [facility]. 06-26-2011 15:45-0500 Body weight 38.1 kg Neilee L Vess SUPPLY CHAIN ASSISTANT [facility].; [employer], [facility]. 05-30-2011 08:40-0500 Body height 148.59 cm Lloyd House LPN [facility], [facility].; [email or web address] [facility]. 05-30-2011 08:40-0500 Body mass index (BMI) [Percentile] Per age and sex 35 % Lloyd Owenach SUPPLY CHAIN ASSISTANT [facility].; [employer] [facility]. 05-30-2011 08:40-0500 Body mass index (BMI) [Ratio] 16.23 kg/m2 Lloyd House LPN [place] [facility], [facility].; [place] [employer] [facility]. 05-30-2011 08:40-0500 Body surface area Derived from formula 1.23 m2 Lloyd Owenach SUPPLY CHAIN ASSISTANT [place] [facility], [facility].; [email or web address] [facility]. 05-30-2011 08:40-0500 Body temperature 97.3 [degF] Lloyd House LPN [facility].; [employer]. Comment on above: Method: Tympanic 05-30-2011 08:40-0500 Body weight 35.83 kg Lloyd House LPN [facility].; [employer]. 05-17-2011 08:59-0400 Body height 146.05 cm Ángela D Waterford PA-C Work Phone: [employer].; [employer]. 05-17-2011 08:59-0400 Body mass index (BMI) [Percentile] Per age and sex 37 % Ángela D Waterford PA-C Work Phone: [employer]; [employer]. 05-17-2011 08:59-0400 Body mass index (BMI) [Ratio] 16.33 kg/m2 Ángela D Waterford PA-C Work Phone: [employer]; [employer]. 05-17-2011 08:59-0400 Body surface area Derived from formula 1.21 m2 Ángela D Waterford PA-C Work Phone: [employer]; [employer]. 05-17-2011 08:59-0400 Body temperature 98.3 [degF] Ángela D Waterford PA-C Work Phone: [employer]; [employer]. Comment on above: Method: Tympanic 05-17-2011 08:59-0400 Body weight 34.84 kg Ángela D Waterford PA-C Work Phone: [employer]; [employer]. 05-17-2011 08:59-0400 Inhaled oxygen concentration 20 % Ángela D Waterford PA-C Work Phone: [employer]; [employer]. Comment on above: Room air 05-17-2011 08:59-0400 Inhaled oxygen concentration 21 % Ángela D Waterford PA-C Work Phone: [employer].; [employer]. Comment on above: Room air 05-17-2011 08:59-0400 SaO2% (BldA) [Mass fraction] 98 % Ángela Fermin PA-C Work Phone: [employer].; [employer]. 03-05-2011 15:03-0400 Body height 144.78 cm Conchita Hawthorne RN [employer].; [employer]. 03-05-2011 15:03-0400 Body mass index (BMI) [Percentile] Per age and sex 34 % Conchita Hawthorne RN [employer]. 03-05-2011 15:03-0400 Body mass index (BMI) [Ratio] 16.1 kg/m2 Conchita Hawthorne RN [employer].; [employer]. 03-05-2011 15:03-0400 Body surface area Derived from formula 1.18 m2 Conchita Hawthorne RN [employer].; [employer]. 03-05-2011 15:03-0400 Body temperature 98.5 [degF] Conchita Hawthorne RN [employer].; [employer]. Comment on above: Method: Tympanic 03-05-2011 15:03-0400 Body weight 33.75 kg Conchita Hawthorne RN [employer].; [employer]. 10-09-2010 16:19-0400 Body height 142.24 cm Mandi Maldonado RN Work Phone: [employer].; [employer] 10-09-2010 16:19-0400 Body mass index (BMI) [Percentile] Per age and sex 35 % Mandi Maldonado RN Work Phone: [employer] 10-09-2010 16:19-0400 Body mass index (BMI) [Ratio] 15.92 kg/m2 Mandi Maldonado RN Work Phone: [employer] 10-09-2010 16:19-0400 Body surface area Derived from formula 1.14 m2 Mandi Maldonado RN Work Phone: [employer] 10-09-2010 16:19-0400 Body temperature 98.1 [degF] Mandi Maldonado RN Work Phone: [employer]. Comment on above: Method: Tympanic 10-09-2010 16:19-0400 Body weight 32.21 kg Mandi Maldonado RN Work Phone: [employer]. 09-07-2010 13:03-0500 Body height 139.7 cm Mandi Maldonado RN Work Phone: [employer] 09-07-2010 13:03-0500 Body mass index (BMI) [Percentile] Per age and sex 38 % Mandi Maldonado RN Work Phone: [employer] 09-07-2010 13:03-0500 Body mass index (BMI) [Ratio] 16.04 kg/m2 Mandi Maldonado RN Work Phone: [employer]. 09-07-2010 13:03-0500 Body surface area Derived from formula 1.11 m2 Mandi Maldonado RN Work Phone: [employer] 09-07-2010 13:03-0500 Body temperature 98.1 [degF] Mandi Maldonado RN Work Phone: [employer] Comment on above: Method: Tympanic 09-07-2010 13:03-0500 Body weight 31.3 kg Mandi Maldonado RN Work Phone: [employer]. 07-07-2010 08:41-0500 Body height 140.34 cm Anna Marie Sales PA-C Work Phone: [employer] 07-07-2010 08:41-0500 Body mass index (BMI) [Percentile] Per age and sex 46 % Anna Marie Sales PA-C Work Phone: [employer]; [employer] 07-07-2010 08:41-0500 Body mass index (BMI) [Ratio] 16.35 kg/m2 Anna Marie Sales PA-C Work Phone: [employer]; [employer] 07-07-2010 08:41-0500 Body surface area Derived from formula 1.13 m2 Anna Marie Sales PA-C Work Phone: [employer]; [employer] 07-07-2010 08:41-0500 Body temperature 99 [degF] Anna Marie Sales PA-C Work Phone: [employer]; [employer] 07-07-2010 08:41-0500 Body weight 32.21 kg Anna Marie Sales PA-C Work Phone: [employer]; [employer] Encounters Encounter Date Encounter Type Care Provider Facility Start: 07-01-2025 ambulatory Rita Wolfe cility:[facility] Start: 05-28-2025 ambulatory Anna Marie Sales PA Facil ity:[facility] Start: 05-20-2025 End: 05-20-2025 ambulatory Anna Marie Sales PA Facility:[facility] Start: 05-03-2025 End: 05-03-[address] Rita Rivas DO -[facility] Work Phone: Start: 05-03-2025 End: 05-03-2025 ambulatory Anna Marie Sales PA Work Phone: -[facility] Start: 04-22-2025 End: 04-22-[address] Maia Gan MD -[facility] Work Phone: Start: 04-22-2025 End: 04-22-2025 ambulatory Anna Marie Sales PA Work Phone: -[facility] Start: 04-20-2025 End: 04-20-2025 Patient encounter procedure Mechelle Francois POLLUTION CONTROL CHEMIST-C -Laboratory Work Phone: Start: 04-20-2025 End: 04-20-2025 ambulatory Anna Marie Sales PA Facility:[facility] Start: 04-07-2025 End: 04-07-2025 ambulatory Anna Marie Sales PA Work Phone: -[facility] Start: 04-07-2025 End: 04-07-2025 Patient encounter procedure Mechellepaxton Francois POLLUTION CONTROL CHEMIST-C -[facility] Work Phone: Start: 04-07-2025 End: 04-07-2025 ambulatory Anna Marie Sales PA Facility:[facility] Start: 03-31-2025 End: 03-31-2025 ambulatory Anna Marie Sales PA Work Phone: -Laboratory Specimen Start: 03-31-2025 End: 03-31-2025 Patient encounter procedure Mechelle Francois POLLUTION CONTROL CHEMIST-C -Laboratory Specimen Work Phone: Start: 03-31-2025 End: 03-31-2025 Patient encounter procedure Mechelle Grandin POLLUTION CONTROL CHEMIST-C -[facility] Work Phone: Start: 03-31-2025 End: 03-31-2025 ambulatory Anna Marie Sales PA Work Phone: -[facility] Start: 03-31-2025 End: 03-31-2025 ambulatory Mechelle Priscila POLLUTION CONTROL CHEMIST Facility:[facility] Start: 03-11-2025 End: 03-11-2025 Patient encounter procedure Kehinde Anand CNM -[facility] Work Phone: Start: 03-11-2025 End: 03-11-2025 ambulatory Anna Marie Sales PA Work Phone: [facility] Start: 03-11-2025 End: 03-11-2025 ambulatory Anna Marie Sales PA Facility:[facility] Start: 03-03-2025 ambulatory Rita Wolfe cility:[facility] Start: 03-03-2025 Non-patient / Non-visit Dr. Johnnie Rivas DO -[facility] Start: 03-03-2025 End: 03-03-2025 ambulatory Anna Marie Sales PA [facility] Phone[facility] Start: 03-03-2025 End: 03-03-[address] Rita Rivas DO -[facility] Work Phone: Start: 02-18-2025 End: 02-18-[address] Maia Gan MD -[facility] Start: 02-18-2025 End: 02-18-2025 ambulatory [facility] Start: 02-18-2025 End: 02-18-2025 ambulatory Anna Marie Sales PA Facility:[facility] Start: 02-09-2025 End: 02-09-[address] Maia Gan MD -[facility] Work Phone: Start: 02-09-2025 End: 02-09-2025 ambulatory Anna Marie Sales PA Work Phone: -[facility] Start: 02-04-2025 End: 02-04-2025 ambulatory ROCHESTERYENNI Nielsen [facility] Start: 01-15-2025 End: 01-15-[address] Rita Rivas DO -[facility] Work Phone: Start: 01-15-2025 End: 01-15-2025 ambulatory Anna Marie Sales PA Work Phone: -[facility] Start: 01-06-2025 End: 01-06-[address] Maia Gan MD -[facility] Out Work Phone: Start: 01-06-2025 End: 01-06-2025 ambulatory Anna Marie Sales PA Work Phone: [facility] Work Phone: Start: 12-23-2024 End: 12-23-2024 Patient encounter procedure Kehinde Anand CNM -[facility] Work Phone: Start: 12-23-2024 End: 12-23-2024 ambulatory Anna Marie Sales PA Work Phone: [facility] Work Phone: Start: 12-21-2024 End: 12-21-2024 Patient encounter procedure Kehinde Anand CNM -[facility] Work Phone: Start: 12-21-2024 End: 12-21-2024 ambulatory Anna Marie Sales PA Work Phone: [facility] Work Phone: Start: 12-21-2024 End: 12-21-2024 ambulatory Anna Marie Sales PA Facility:[facility] Start: 12-16-2024 End: 12-16-2024 Office outpatient visit 15 minutes Anna Marie GOMEZ-C Work Phone: [facility] Start: 11-19-2024 End: 11-19-2024 Patient encounter procedure Kehinde Anand CNM -[facility] Work Phone: Start: 11-19-2024 End: 11-19-2024 ambulatory Anna Marie Sales PA Facility:[facility] Start: 11-19-2024 End: 11-19-2024 ambulatory Anna Marie Sales PA Facility:[facility] Start: 11-03-2024 End: 11-03-2024 Patient encounter procedure Mechelle DOWNING -[facility] Work Phone: Start: 11-03-2024 End: 11-03-2024 ambulatory Anna Marie Sales PA Facility:[facility] Start: 06-12-2024 End: 06-12-2024 Patient encounter procedure Anna Marie GRIMALDOC Work Phone: [facility]. Start: 06-12-2024 End: 06-12-2024 Periodic preventive med est patient 18-39 yrs Anna Marie Sales PA-C Work Phone: [facility] Start: 06-12-2024 Patient encounter status Madina Jules ARLETH [facility]. Start: 06-12-2024 Review Anna Marie Sales PA-C Work Phone: [facility] Start: 03-30-2024 End: 03-30-2024 Refill Elijah Lyman APRN.CHIEF INFORMATION OFFICER Work Phone: OB/Gynecology Comment on above: Med Change Request Start: 03-30-2024 End: 03-30-2024 ambulatory Elijah Lyman APRN.CHIEF INFORMATION OFFICER Work Phone: OB/Gynecology Comment on above: Dyspareunia in femal e (Primary Dx) Start: 03-30-2024 End: 03-30-2024 Telemedicine consultation with patient Elijah Lyman APRN.CHIEF INFORMATION OFFICER Work Phone: OB/Gynecology Start: 03-20-2024 End: 03-20-2024 ambulatory ELIJAH LYMAN OB/Gynecology Start: 03-20-2024 End: 03-20-2024 Patient encounter procedure [employer] OB/Gynecology Start: 03-11-2024 End: 03-11-2024 ambulatory ELIJAH LYMAN Facility:[facility] Start: 03-11-2024 End: 03-11-2024 Patient encounter procedure Elijah Coltdrew GAXIOLA.CHIEF INFORMATION OFFICER Work Phone: OB/Gynecology Comment on above: Dyspareunia in femal e (Primary Dx); Screen for STD (sexually transmitted disease); Encounter for screening for malignant neoplasm of cervix Start: 01-03-2024 End: 01-03-2024 Orders Anna Marie Sales PA-C Work Phone: [facility] Start: 12-30-2023 End: 06-10-2024 Orders Anna Marie Sales PA-C Work Phone: [employer]. Start: 05-01-2023 End: 05-01-2023 Medication Anna Marie Sales PA-C Work Phone: [employer]. Start: 04-15-2023 End: 04-15-2023 Orders Anna Marie Sales PA-C Work Phone: [employer]. Start: 12-14-2022 End: 12-14-2022 Orders Anna Marie Sales PA-C Work Phone: [employer]. Start: 12-05-2022 End: 12-05-2022 Orders Anna Marie Sales PA-C Work Phone: [employer]. Start: 11-30-2022 End: 12-03-2022 Orders Anna Marie Sales PA-C Work Phone: [employer]. Start: 11-28-2022 End: 11-28-2022 Patient encounter procedure Anna Marie Sales PA-C Work Phone: [employer]. Start: 11-28-2022 End: 11-28-2022 Patient encounter status Anna Marie Sales PA-C Work Phone: [employer] Start: 10-17-2022 End: 10-17-2022 ambulatory [facility] Work Phone: Start: 10-17-2022 End: 10-17-2022 Patient encounter procedure [facility] Start: 07-31-2022 End: 07-31-2022 Office outpatient visit 15 minutes Anna Marie Slaes PA-C Work Phone: [employer]. Start: 01-29-2022 End: 01-29-2022 Office outpatient visit 15 minutes Anna Marie Sales PA-C Work Phone: [employer]. Start: 12-08-2021 End: 12-08-2021 Patient encounter procedure Anna Marie Sales PA-C Work Phone: [employer]. Start: 12-08-2021 End: 12-08-2021 Patient encounter status Anna Marie Darlinger PA-C Work Phone: [employer]. Start: 06-09-2021 End: 06-09-2021 Office outpatient visit 15 minutes Anna Marie Darlinger PA-C Work Phone: [employer]. Start: 02-17-2021 End: 02-17-2021 Office outpatient visit 15 minutes Anna Marie Sales PA-C Work Phone: [employer]. Start: 08-05-2020 End: 08-05-2020 Office outpatient visit 25 minutes Anna Marie Sales PA-C Work Phone: [employer] Start: 08-18-2019 End: 08-18-2019 Office outpatient visit 25 minutes Anna Marie Sales PA-C Work Phone: [employer] Start: 06-08-2019 End: 06-08-2019 Office outpatient visit 15 minutes Anna Marie Sales PA-C Work Phone: [employer] Start: 12-18-2018 End: 12-18-2018 Patient encounter procedure NATALIA LIANG [facility] Start: 11-15-2018 End: 11-15-2018 Orders Anna Marie Darlinger PA-C Work Phone: [employer]. Start: 11-14-2018 End: 11-14-2018 Patient encounter procedure ANNA MARIE SALES [facility] Start: 11-03-2018 End: 11-03-2018 Orders Anna Marie Sales PA-C Work Phone: [employer] Start: 10-30-2018 End: 10-30-2018 Office outpatient visit 15 minutes Anna Marie Sales PA-C Work Phone: [employer] Start: 06-23-2018 End: 06-23-2018 Orders Anna Marie Sales PA-C Work Phone: [employer]. Start: 06-20-2018 End: 06-22-2018 Office outpatient visit 15 minutes Anna Marie Sales PA-C Work Phone: [employer]. Start: 04-22-2018 End: 04-22-2018 Office outpatient visit 15 minutes Anna Marie Sales PA-C Work Phone: [employer]. Start: 04-14-2018 End: 04-14-2018 Office outpatient visit 25 minutes Anna Marie Sales PA-C Work Phone: [employer]. Start: 01-28-2018 End: 01-28-2018 Ambulatory [facility] Start: 01-28-2018 End: 01-28-2018 Patient encounter procedure Anna Marie Asles PA-C Work Phone: [employer]. Start: 01-28-2018 End: 01-28-2018 Patient encounter status Jaziel Nam LPN [employer]. Start: 12-13-2016 End: 12-13-2016 Patient encounter procedure Anna Marie Sales PA-C Work Phone: [employer]. Start: 11-06-2016 End: 11-06-2016 Office outpatient visit 15 minutes Anna Marie Sales PA-C Work Phone: [employer]. Start: 10-18-2016 End: 10-18-2016 Patient encounter procedure Anna Marie Sales PA-C Work Phone: [employer]. Start: 10-04-2016 End: 10-04-2016 Patient encounter procedure Anna Marie Sales PA-C Work Phone: [employer]. Start: 05-09-2016 End: 05-09-2016 Patient encounter procedure Anna Marie Sales PA-C Work Phone: [employer]. Start: 04-25-2016 End: 04-25-2016 Medication Anna Marie Sales PA-C Work Phone: [employer] Start: 04-04-2016 End: 04-04-2016 Patient encounter procedure Anna Marie Sales PA-C Work Phone: [employer]. Start: 03-21-2016 End: 03-21-2016 Patient encounter procedure Anna Marie Sales PA-C Work Phone: [employer]. Start: 03-21-2016 End: 03-21-2016 Patient encounter status Conchita Hawthorne RN [employer] Start: 11-07-2015 End: 11-07-2015 Office outpatient visit 25 minutes Anna Marie Sales PA-C Work Phone: [employer] Start: 02-09-2015 End: 02-09-2015 Patient encounter procedure Anna Marie Sales PA-C Work Phone: [employer] Start: 02-09-2015 End: 02-09-2015 Routine infant or child health check Anna Marie Sales PA-C Work Phone: [employer]; [employer]. Start: 06-09-2014 End: 06-09-2014 Nursing evaluation of patient and report Anna Marie Sales PA-C Work Phone: [employer] Start: 11-13-2013 End: 11-13-2013 Patient encounter procedure Anna Marie Sales PA-C Work Phone: [employer] Start: 07-02-2013 End: 07-02-2013 Nursing evaluation of patient and report Anna Mariemarley Darlinger PA-C Work Phone: [employer] Start: 02-05-2013 End: 02-05-2013 Orders Anna Marie Darlinger PA-C Work Phone: [employer] Start: 01-30-2013 End: 01-30-2013 Patient encounter procedure Anna Marie Darlinger PA-C Work Phone: [employer] Start: 01-30-2013 End: 01-30-2013 Routine infant or child health check Mandi Maldonado RN Work Phone: [facility] [employer]. Start: 08-01-2012 End: 08-01-2012 Patient encounter procedure Anna Marie Sales PA-C Work Phone: [facility] [employer] Start: 05-07-2012 End: 05-07-2012 Patient encounter procedure Anna Marie Darlinger PA-C Work Phone: [employer] Start: 04-30-2012 End: 04-30-2012 Patient encounter procedure Anna Marie Sales PA-C Work Phone: [employer]. Start: 11-22-2011 End: 11-22-2011 Patient encounter procedure Anna Marie Sales PA-C Work Phone: [employer] Start: 07-26-2011 End: 07-26-2011 Patient encounter procedure Anna Mariemarley Darlinger PA-C Work Phone: [employer] Start: 06-26-2011 End: 06-26-2011 Patient encounter procedure Anna Marie Sales PA-C Work Phone: [employer] Start: 05-30-2011 End: 05-30-2011 Patient encounter procedure Anna Marie Sales PA-C Work Phone: [employer] Start: 05-17-2011 End: 05-17-2011 Patient encounter procedure Anna Marie Sales PA-C Work Phone: [employer] Start: 03-05-2011 End: 03-05-2011 Patient encounter procedure Anna Marie Sales PA-C Work Phone: [employer]. Start: 10-09-2010 End: 10-09-2010 Patient encounter procedure Anna Marie Sales PA-C Work Phone: [employer] Start: 09-07-2010 End: 09-07-2010 Patient encounter procedure Anna Marie Sales PA-C Work Phone: [employer] Start: 09-07-2010 End: 09-07-2010 Routine or child health check Anna Marie Sales PA-C Work Phone: [facility]; [facility]. Start: 07-07-2010 End: 07-07-2010 Patient encounter procedure Anna Marie Sales PA-C Work Phone: [facility] Routine infant or ch ild health check Ángela Fermin JUAN Work Phone: [facility]; [facility] Routine or ch ild health check Rita Tameka REINOSO [facility] Procedures Date Procedure Procedure Detail Performing Clinician Start: 04-07-2025 Urine culture Anna Marie GOMEZ Work Phone: Start: 04-07-2025 Serologic test for syphilis Anna Marie GOMEZ Work Phone: Start: 03-31-2025 Urine culture Anna Marie GOMEZ Work Phone: Start: 03-03-2025 Urnls dip stick/tabl et reagent auto microscopy Anna Marie GOMEZ Work Phone: Start: 03-03-2025 Urine culture Anna Marie jama PA Work Phone: Start: 02-18-2025 Procedure Anna Marie [...] HCV Quant by PCR testing - HCVPCR #[id number] Non Reactive: < 0.8 Equivocal: >/= 0.8 to < 1.0 Reactive: >/= 1.0The CDC requires that a reactive/equivocal HCV antibody result be sent out for confirmation. HCV Quant by PCR testing. Start: 11-19-2024 Procedure Anna Marie Patricia GOMEZ Work Phone: Comment on above: Test Ordered: [id number] TSH Receptor Antibody (TBII)TSH Receptor Antibody (TBII) <0.3 U/L ES Reference Range: .Reference Range:Antibody Titer:<1.0 U/L = Negative1.1 - 1.5 U/L = Equivocal>1.5 U/L = PositivePerformed at: [facility] [address] [id number] Director: Jeronimo Holden MD, Phone: [phone] at: [facility] [id number] [place], [place] [id number] Director: Sandeep Bae PhD, Phone: [phone] Start: 11-19-2024 Rubella IgG measurement Anna Marie [...] 06-12-2024 Scr dep neg, no plan reqd Nana Marie Kayode anderson PA-C Work Phone: Start: 03-20-2024 Us pelvic nonobstetr ic real-time image complete Elijah Lyman APRN.CHIEF INFORMATION OFFICER Work Phone: Start: 06-21-2023 End: 06-21-2023 [place] Teeth Extraction Anna Marie Sales PA-C Work Phone: Start: 12-05-2022 End: 12-13-2022 Us soft tissue head & neck real time imge docm Anna Marie Sales PA-C Work Phone: Start: 11-28-2022 End: 11-28-2022 Depression screening Anna Marie Sales PA-C Work [...] End: 08-18-2019 Body mass index documented Ángela Jones lls PA-C Work Phone: Start: 11-03-2018 End: 11-17-2018 Hepatobiliary syst imaging including gallbladder Anna Marie Headley Sales PA-C Work Phone: Start: 11-03-2018 End: 11-15-2018 Us abdominal real time w/image limited Anna Marie Darlinger PA-C Work Phone: Start: 06-20-2018 End: 06-24-2018 Us soft tissue head & neck real time imge docm Anna Marie Darlinger PA-C Work Phone: Start: 04-14-2018 End: 04-14-2018 Body mass index documented Ángela Gottlieb Hi lls PA-C Work Phone: Start: 01-28-2018 End: 02-10-2018 Radex entir thrc lmbr crv sac spi w/skull 1 vw Ángela Gottlieb Jeny PA-C Work Phone: Start: 04-04-2016 End: 04-30-2017 Pressurized/nonpressurized inhalation treatment Ángela D Jeny PA-C Work Phone: Comment on above: PO RA s/p treatment - 97 Exam s/p treatment - rhonchi without wheezing Start: 02-09-2015 End: 02-09-2015 Screening test visual acuity quantitative bilat Ángela Fermin PA-C Work Phone: History of cholecystectomy S/P cholecyste ctomy Anna Marie GOMEZ Work Phone: Comment on above: 2018 Plan of Treatment Date Care Activity Detail Author Start: 03-11-2027 Screening for malign ant neoplasm of cervix Cervical Cancer Screening [facility] Start: 04-20-2025 Patient encounter procedure Registered Clinical -Laboratory Work Phone: Start: 04-07-2025 Bacteria identified in Urine by Culture Urine Culture [facility] Start: 04-07-2025 [facility] Start: 03-11-2025 CBC W Auto Different ial panel - Blood [facility] Start: 03-11-2025 Comprehensive metabo lic 2000 panel - Serum or Plasma [facility] Start: 03-11-2025 Thyroid stimulating hormone measurement [facility] Start: 03-11-2025 GC (Gonorrhea) Scree lovely (18-24) GC (Gonorrhea) Screening () [facility] Start: 03-11-2025 Screening for Chlamy mya trachomatis Chlamydia Screening () [facility] Start: 03-03-2025 [facility] Start: 03-03-2025 Nonstress test [facility] Start: 03-03-2025 Obstetric monitoring [facility] Start: 03-03-2025 Vital signs measurements [facility] Start: 03-03-2025 [facility] Start: 01-06-[address] ug or medicament by intravenous push THER/PROPH/DIAG INJ IV PUSH [facility] Start: 01-06-2025 Iv infusion hydratio n each additional hour HYDRATE IV INFUSION ADD-ON [facility] Start: 01-06-2025 Ther proph/dx njx iv push single/1st sbst/drug THER/PROPH/DIAG INJ IV PUSH [facility] Start: 12-23-2024 Iv infusion hydratio n each additional hour HYDRATE IV INFUSION ADD-ON [facility] Start: 12-23-2024 Ther proph/dx njx iv push single/1st sbst/drug THER/PROPH/DIAG INJ IV PUSH [facility] Start: 06-12-2024 Comprehensive metabo lic panel CMP w/ GFR* ([id number]) Start: 12-Jun-2024 10:37-05:00 Request [employer] [employer] Start: 06-12-2024 Assay of ferritin FERRITIN ([id number]) Start: 12-Jun-2024 10:37-05:00 Request [employer]; [employer] Start: 06-12-2024 Blood count complete auto&auto difrntl wbc CBC, PLATELETS & AUT DIFF (F) ([id number]) Start: 12-Jun-2024 10:37-05:00 [facility] [employer]; [employer] Start: 06-12-2024 Assay of free thyroxine T4 CASANDRA E ([id number]) Start: 12-Jun-2024 10:36-05:00 Request [employer]; [employer] Start: 06-12-2024 Assay of thyroid stimulating hormone tsh TSH (THYROID STIMULATING HORMONE) ([id number]) Start: 12-Jun-2024 10:36-05:00 Request [employer]; [employer] Start: 06-12-2024 Patient encounter procedure Medical; PHYSICAL - physical [place] Start: 12-Jun-2024 10:00-05:00 JUAN Sales Appointment Request [employer] Start: 03-30-2024 End: 03-30-2024 Follow-up encounter 03/30/2024 8:45 AM EDT [facility] OB/Gynecology [address] [place], [place] [id number] Elijah Lyman APRN.CHIEF INFORMATION OFFICER [address] [place] [address] us follow up OB/Gynecology Comment on above: us follow up Start: 03-22-2024 Covid-19 Vaccine ( season) Covid-19 Vaccine ( season) [facility] Start: 03-22-2024 Influenza vaccination Influenza Vacc ine (#1) [facility] Start: 03-20-2024 End: 03-20-2024 ambulatory 03/20/2024 9:00 AM EDT Procedure OB/Gynecology [address] [place] [address] Dyspareunia in female [N94.10] OB/Gynecology Comment on above: Dyspareunia in femal e [N94.10] Start: 03-11-2024 End: 03-11-2025 US Pelvis PELVIC US [facility] Anc Imaging Routine Dyspareunia in female Expected: 03/11/2024, Expires: 03/11/2025 [facility] Work Phone: Comment on above: Expected: 03/11/2024 , Expires: 03/11/2025 Start: 01-03-2024 Assay of thyroid stimulating hormone tsh [facility]; [facility] Start: 01-03-2024 Nursing evaluation o f patient and report Medical; Nurse visit - TSH mjp [facility] Start: 03-Jan-2024 10:40-04:00 NURSE, FLOAT Appointment Request [facility] Start: 03-22-2023 Covid-19 Vaccine ( season) Covid-19 Vaccine ( season) [facility] Start: 2021 Screening for malign ant neoplasm of cervix Cervical Cancer Screening [facility] Start: 12-18-2019 Hepatitis B Vaccine (1 of 3 - 19+ 3-dose series) Hepatitis B Vaccine (1 of 3 - 19+ 3-dose series) [facility] Start: 12-18-2019 Urine microalbumin profile DTa P,Tdap,Td Vaccine (1 - Tdap) [facility] Start: 2018 Anxiety Screening Anxiety Screening [facility] Start: 2018 Depression Screening Depression Scre ening [facility] Start: 2018 GC (Gonorrhea) Scree lovely (18-24) GC (Gonorrhea) Screening (18-) [facility] Start: 2018 Hepatitis C screening Hepatitis C Sc reening [facility] Start: 2018 HIV screening HIV Screening [facility] Start: 2018 Screening for Chlamy mya trachomatis Chlamydia Screening (18-24) [facility] Start: 2016 Meningococcal B Vacc ine: Consider Based On Risk (1 of 2 - Patient Seeks Protection) Meningococcal B Vaccine: Consider Based On Risk (1 of 2 - Patient Seeks Protection) [facility] Start: 12-18-2015 HPV Vaccine (1 - 3-d ose series) HPV Vaccine (1 - 3-dose series) [facility] Start: 2014 Peds To Adult Transi tion Annual Assessment Peds To Adult Transition Annual Assessment [facility] Start: 2012 Peds To Adult Transi tion Initial Discussion Peds To Adult Transition Initial Discussion [facility] Alanine aminotransfe rase [Enzymatic activity/volume] in Serum or Plasma [facility] Albumin [Mass/volume ] in Serum or Plasma [facility] Alkaline phosphatase [Enzymatic activity/volume] in Serum or Plasma [facility] Anion gap in Serum o r Plasma [facility] BACTERIAL VAGINOSIS NAAT BACTERI AL VAGINOSIS NAAT Lab Routine Dyspareunia in female 03/11/2024 8:10 AM EDT [facility] Bilirubin, total measurement [facility] BUN/Creatinine ratio [facility] Calcium [Mass/volume ] in Serum or Plasma [facility] FLORIDALMA/TRICHOMONAS NAAT FLORIDALMA /TRICHOMONAS NAAT Lab Routine Dyspareunia in female 03/11/2024 8:10 AM EDT [facility] Carbon dioxide, tota l [Moles/volume] in Central venous blood [facility] Chlamydia trachomatis+Neisseria gonorrhoeae DNA [Presence] in Unspecified specimen by ANIRUDH with probe detection GONORRHEA/CHLAMYDIA NAAT Lab Routine Screen for STD (sexually transmitted disease) 03/11/2024 8:10 AM EDT [facility] Creatinine [Mass/vol ume] in Serum or Plasma [facility] Erythrocyte mean corpuscular volume determination [facility] Erythrocyte mean corpuscular volume determination [facility] Glucose [Mass/volume ] in Serum or Plasma [facility] Hematocrit [Volume Fraction] of Blood [facility] Hematocrit [Volume Fraction] of Blood [facility] Hemoglobin [Mass/vol ume] in Blood [facility] Hemoglobin [Mass/vol ume] in Blood [facility] Leukocytes [#/volume ] in Blood [facility] Leukocytes [#/volume ] in Blood [facility] Mean corpuscular hemoglobin concentration determination [facility] Mean corpuscular hemoglobin concentration determination [facility] Mean corpuscular hemoglobin determination [facility] Mean corpuscular hemoglobin determination [facility] Measurement of gluco se 2 hours after glucose challenge for glucose tolerance test [facility] Measurement of renal function [facility] Neutrophil count [facility] Neutrophil count [facility] Neutrophil percent differential count [facility] Neutrophil percent differential count [facility] PAP TEST PAP TEST Lab Rou shannon Encounter for screening for malignant neoplasm of cervix 03/11/2024 8:10 AM EDT [facility] Patient Education Kick Counts ED False Labor OB Triage: Return to Hospital or Notify Physician if you Experience: [facility] Work Phone: Platelets [#/volume] in Blood [facility] Platelets [#/volume] in Blood [facility] Potassium measurement [facility] Red blood cell count [facility] Red blood cell count [facility] Red cell distributio n width determination [facility] Red cell distributio n width determination [facility] Serologic test for syphilis [facility] Serum chloride measurement [facility] Sodium measurement [facility] Thyroid stimulating hormone measurement [facility] Total protein measurement [facility] Urea nitrogen [Mass/volume] in Serum or Plasma [facility] Urine culture [facility] Urine culture [facility] Immunizations Immunization Date Immunization Notes Care Provider Fa [facility] 04-22-2025 tetanus toxoid, redu marissa diphtheria toxoid, and acellular pertussis vaccine, adsorbed Anna Marie GOMEZ Work Phone: [facility] 03-10-2021 COVID-Faby (AD26 .5 ML) Anna Marie Sales PA-C Work Phone: [employer] [facility], [employer] [facility] [employer] 01-28-2018 Meningococcal, MCV4, unspecified conjugate formulation(groups A, C, Y and W-135) Anna Marie Sales PA-C Work Phone: [employer]; [employer] 01-28-2018 Counseled parent on risks/benefits of vaccines ([id number]) Anna Marie Sales PA-C Work Phone: [employer]; [employer] 01-28-2018 meningococcal polysaccharide (groups A, C, Y and W-135) diphtheria toxoid conjugate vaccine (MCV4P) Anna Marie Sales PA-C Work Phone: [employer]; [employer]. Comment on above: Site: Left DeltoidVI S Given: * Meningococcal Vaccine (10/20/2015) 06-09-2014 influenza, seasonal, injectable Anna Marie Sales PA-C Work Phone: [employer]; [employer]. Comment on above: Site: Deltoid (Left) VIS Given: * Influenza, Inactivated ([id number]) 06-09-2014 IMMUNIZATION ADMIN ([id number]) Anna Marie Sales PA-C Work Phone: [employer]; [employer]. 07-02-2013 influenza, seasonal, injectable Anna Marie Sales PA-C Work Phone: [employer]; [employer]. Comment on above: Site: Deltoid (Left) VIS Given: * Inactivated Influenza Vaccine (03/01/09) * Inactivated Influenza Vaccine (02/13/11) * Influenza vaccine [id number], inactivated (01/21/2012) * Influenza, Inactivated () * VIS Given (Unspecified) 07-02-2013 IMMUNIZATION ADMIN ([id number]) Anna Marie Sales PA-C Work Phone: [employer]; [employer]. 02-05-2013 varicella virus vaccine Mercedes Sales PA-C Work Phone: [employer]; [employer]. Comment on above: Site: Deltoid Area ( Left)VIS Given: * Varicella (Chickenpox) (10/02/07) 01-30-2013 tetanus toxoid, redu marissa diphtheria toxoid, and acellular pertussis vaccine, adsorbed Anna Marie Sales PA-C Work Phone: [facility]. Comment on above: Site: Deltoid (Left) VIS Given: * Tetanus/Diphtheria/(Pertussis) (Td/Tdap) (06/08/08) * Tetanus/Diptheria/Pertussis (Tdap/Td) 08/14/11 10-03-2005 diphtheria, tetanus toxoids and acellular pertussis vaccine Anna Marie Sales PA-C Work Phone: [facility] 10-03-2005 measles, mumps and rubella virus vaccine Anna Marie Sales PA-C Work Phone: [facility] 10-03-2005 poliovirus vaccine, inactivated Anna Marie Sales PA-C Work Phone: [facility].; [facility] 08-31-2002 diphtheria, tetanus toxoids and acellular pertussis vaccine Anna Marie Sales PA-C Work Phone: [facility] [facility]. 08-31-2002 varicella virus vaccine Mercedes ssa Sales PA-C Work Phone: [facility]. 03-19-2002 measles, mumps and rubella virus vaccine Anna Marie Sales PA-C Work Phone: [employer] [facility].; [facility]. 02-27-2002 hepatitis B vaccine, pediatric or pediatric/adolescent dosage Anna Marie Sales PA-C Work Phone: [facility]. 06-18-2001 diphtheria, tetanus toxoids and acellular pertussis vaccine Anna Marie Sales PA-C Work Phone: [employer] [facility] 06-18-2001 haemophilus influenz ae type b vaccine, PRP-T conjugate Anna Marie Saels PA-C Work Phone: [facility]; [facility] 06-18-2001 pneumococcal conjuga te vaccine, 7 valent Anna Marie Sales PA-C Work Phone: [facility].; [facility] 06-18-2001 poliovirus vaccine, inactivated Anna Marie Sales PA-C Work Phone: [facility].; [facility] 04-16-2001 diphtheria, tetanus toxoids and acellular pertussis vaccine Anna Marie Sales PA-C Work Phone: [facility].; [facility] 04-16-2001 haemophilus influenz ae type b vaccine, PRP-T conjugate Anna Marie Sales PA-C Work Phone: [facility]; [facility] 04-16-2001 pneumococcal conjuga te vaccine, 7 valent Anna Marie Sales PA-C Work Phone: [facility].; [facility] 04-16-2001 poliovirus vaccine, inactivated Anna Marie Sales PA-C Work Phone: [facility].; [facility] 02-25-2001 pneumococcal conjuga te vaccine, 7 valent Anna Marie Sales PA-C Work Phone: [facility]; [facility] 02-21-2001 diphtheria, tetanus toxoids and acellular pertussis vaccine Anna Marie Sales PA-C Work Phone: [facility].; [facility] 02-21-2001 haemophilus influenz ae type b vaccine, PRP-T conjugate Anna Marie Sales PA-C Work Phone: [facility].; [facility] 02-21-2001 poliovirus vaccine, inactivated Anna Marie Sales PA-C Work Phone: [facility].; [facility] 01-21-2001 hepatitis B vaccine, pediatric or pediatric/adolescent dosage Anna Marie Sales PA-C Work Phone: [facility].; [facility] 2000 hepatitis B vaccine, pediatric or pediatric/adolescent dosage Anna Marie Sales PA-C Work Phone: [facility].; [facility]. Payers Date Payer Category Payer Self-pay [id number] 2024 Unknown [id number] 2023 Unknown [id number] 2023 Unknown [id number] 2000 Unknown [id number] 2.16.84 0.1.029232.3.579.2.651 2000 Unknown [id number] 2.16. 840.1.953906.3.579.2.479 2000 Unknown [id number] 2.16. 840.1.846001.3.579.2.479 1961 Unknown [id number] 2.16.84 0.1.246213.3.579.2.651 Private Health Insurance [id number] Unknown [id number] Unknown [id number] 2.16.8 40.1.245107.3.579.2.462 Unknown [id number] 2.16.8 40.1.917477.3.579.2.462 Unknown [id number] 2.16.8 40.1.726523.3.579.2.462 Unknown [id number] 2.16.8 40.1.480436.3.579.2.462 Unknown [id number] 2.16.8 40.1.548269.3.579.2.462 Unknown [id number] 2.16.8 40.1.006030.3.579.2.462 Unknown [id number] 2.16.8 40.1.666257.3.579.2.462 Unknown [id number] 2.16.8 40.1.570162.3.579.2.462 Unknown [id number] 2.16.8 40.1.845848.3.579.2.462 Unknown [id number] 2.16.8 40.1.247533.3.579.2.462 Unknown [id number] 2.16.8 40.1.298449.3.579.2.462 Unknown [id number] 2.16.8 40.1.494965.3.579.2.462 Unknown [id number] 2.16.8 40.1.812741.3.579.2.462 Unknown [id number] 2.16.8 40.1.582993.3.579.2.462 Unknown [id number] 2.16.8 40.1.182014.3.579.2.462 Unknown [id number] 2.16.8 40.1.965534.3.579.2.462 Unknown [id number] 2.16.8 40.1.734840.3.579.2.462 Unknown [id number] 2.16.8 40.1.918219.3.579.2.462 Unknown [id number] 2.16.8 40.1.510801.3.579.2.462 Unknown [id number] 2.16.8 40.1.192006.3.579.2.462 Unknown [id number] 2.16.8 40.1.582701.3.579.2.462 Unknown [id number] 2.16.8 40.1.880089.3.579.2.462 Unknown [id number] 2.16.8 40.1.956054.3.579.2.462 Unknown [id number] 2.16.8 40.1.036076.3.579.2.462 Social History Date Type Detail Facility Start: 11-05-2015 Tobacco smoking stat us TXIS Unknown if ever smoked [facility] Start: 2000 Sex Assigned At Female W [facility] Start: 03-11-2024 End: 03-30-2024 Caffeine Use Caffeine Use [facility] [employer] [facility] Tobacco/Smoke Exposure: Tobacco/Smoke Exposure: ; None. [employer] None [employer] Work Phone: Start: 03-11-2024 End: 03-30-2025 Tobacco smoking status NHIS Never smoked tobacco [facility] Start: 03-11-2024 Tobacco use and exposure Smokeless tobacco non-user [facility] Start: 03-11-2024 End: 03-30-2024 Tobacco use panel [facility] National Score (1-100), lower number is lower risk 83 [facility] Start: 2000 Sex assigned at Not on file [facility] Medical Equipment Procedure Code Equipment Code Equipment Origin al Text Equipment Identifier Dates Blood Sugar Diagnostic (Blood Glucose Test) strip Start: 04-21-2025 Lancets (Droplet Lancets) 30 gauge [facility] Start: 04-21-2025 Blood Sugar Diagnostic (Blood Glucose Test) strip Start: 04-21-2025 Lancets (Droplet Lancets) 30 gauge [facility] Start: 04-21-2025 Mental Status Date Assessment Result Facility 01-06-2025 Cognitive function Voice/Name [facility] Work Phone: 12-23-2024 Cognitive function Voice/Name [facility] Work Phone: Clinical Notes 03-11-2024 to 05-03-2025 Note Date & Type Note Facility 05-03-2025 Progress note [facility] 04-22-2025 Progress note [facility] 04-22-2025 Progress note Note Date/Time April 22, 2025 4:18pm [facility]'[address], [address] [place] [id number] OFFICE VISIT Date of Service: 04/22/25 MR#: [id number] Acct: [id number] Name: CHERY MCKEON Rep #: [id number] : 2000 Provider: Dr. Willian Gan MD Age/Sex: 24/F [place] [facility] [place]: Signed Intake Vital Signs 03/11/25 15:18 04/07/25 12:52 04/22/25 15:56 Height 5 ft 5 in 5 ft 5 in 5 ft 5 in Weight: 176 lb 3 oz 179 lb BMI 29.3 29.7 BP 117/80 119/81 H Intake Visit Reasons: [address] Freight Conductor Required: No Is patient in pain?: No Allergies No Known Allergies Allergy (Verified 04/22/25 15:55) Medications ?Medication ?Instructions ?Recorded ?Confirmed ?Type loratadine 10 mg tablet (Allergy 10 mg PO DAILY 04/22/25 History Relief (loratadine)) cholecalciferol (vitamin D3) 10 20 mcg PO QDAY 5 04/22/25 History mcg (400 unit) capsule docosahexaenoic acid 200 mg 1 mg PO DAILY 11/03/2409/15 History capsule ( DHA) levothyroxine 25 mcg tablet 50 mcg PO QDAY 11/19/24 History (Levo-T) famotidine 20 mg tablet (Pepcid) 20 mg PO BID #60 tabs 03/11/25 04/22/25 Rx cephalexin 500 mg capsule 500 mg PO DAILY #30 caps 04/22/25 Rx blood sugar diagnostic (Blood #120 ea 04/21/25 5 Rx Glucose Test strips) blood-glucose meter #1 ea 04/21/25 04/22/25 Rx lancets 30 gauge (Droplet Lancets) #200 ea 04/21/25 Rx Last Menstrual Period: 09/16/24 Zika: Zika virus screening: Negative : No PFSH PFSH Surgical History [place] teeth removed S/P cholecystectomy Family History Grandfather Prostate cancer Grandmother Colon cancer CVA (cerebral vascular accident) Grandmother Dementia Father Diabetes Myocardial infarction Skin cancer Mother Heart disease Thyroid disorder Social History adopted: No household members: spouse housing: house current occupational status: employed current occupation: [employer] current occupational exposures/hazards: No pets and animals: [...] 1-2 times per week duration: 15-30 minutes/day guy/mormon: Mandaeism seatbelt use: always do you feel safe at home: Yes 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 OB Visit JACI Calculator Estimated Delivery Date Method Current WG Current Estimate 07/01/25 Ultrasound #1 30w 0d Other Estimates 06/23/25 LMP (Certain) 31w 1d Expected Delivery Route/Plan Labor Preferences- CB/BF classes: @PPC labor support person: Ervin labor intervention preferences: [] pain management options preferred: epidural if requested cut cord/dad catch: maybe : yes PP control planned: [] discussed possible routes of delivery and associated risks: [] special requests: [] Specific Issue/Plans Covid status: [] Flu vaccine: [] Tdap vaccine: given Rhogam: NA LARC form signed: yes movement and labor precautions reviewed. Problem list reviewed and updated with the most current plan of care details and appropriate orders placed. Relevant counseling for the gestational age provided. Continue routine care and follow up unless otherwise noted in visit notes/problem list details Initial Weight: 170 lb Date -?-?-?-?-?-?-?-?-?-?-?-?- EGA Weight BP Urine Prot -?-?-?-?-?-?-?-?-?-?-?-?- Glucose FHR FuHt Pres Dilation -?-?-?--?-?-?-?-?-?-?-?-?- Effaced St Visit Note 11/19/24 -?-?-?-?-?-?-?-?-?-?-?-?- 8w [...] pepcid. TSH labs today-did not get 2 visits ago. cbc and cmp for RUQ pain. had UTI last week just finished at[facility]. [facility] today. 04/07/25 -?-?-?-?-?-?-?-?-?-?-?-?- 27w 6d 176 lb 3 oz (+6 lb 3 oz) 117/80 Negative -?-?-?-?-?-?-?-?-?-?-?-?- Negative 158 28 -?-?-?-?-?-?-?-?-?-?-?-?- MH-No VB, LOF. G ood FM. 28 wk labs pending. Start daily keflex 04/22/25 -?-?-?-?-?--?-?-?-?-?-?-?- 30w 0d 179 lb (+9 lb) 119/81 Negative -?-?-?-?-?-?-?-?-?-?-?-?- Negative 140 29 -?-?-?-?-?-?-?-?-?-?-?-?- SM- no vb lof go od fm no regular ctx ACOG First Trimester First Trimester: Discussed Second Trimester Second Trimester: Signs and Symptoms of Labor, Selecting a care provider, Reproductive Life Planning & Contreception, Care Planning, Depression/Anxiety and Intimate Partner Violence; Discussed Tobacco Cessation Third Trimester Third Trimester: Pain Management Plans, Labor support person(s), Immediate Larc, Signs and Symptoms of Preeclampsia, Feeding No , [place] Education and Family Medical Leave or Disability Forms Results POC Urinalysis 2 Dip (Clinic) Office Urine Glucose Negative Last Edit by Mechelle Johnson on 04/22/25 16:07 Office Urine Protein Negative Last Edit by Mechelle Johnson on 04/22/25 16:07 Immunizations Boostrix Tdap 2.5 Lf unit-8 mcg-5 Lf/0.5 mL intramuscular syringe Performing Provider: Maia Gan MD Performing Location: [facility] Administered by: Mechelle Johnson on 04/22/25 16:08 Dose Route Admin Location Dispensed Lot Number Expiration Date Pack age NDC NDC Spinner Hand 0.5 mL IM Left Deltoid 0.5 mL [id number] 03/21/27 [id number] [id number] [employer] VIS Given Date VIS Provided VIS Publication Date 04/22/25 Single Vaccine 24 Eligibility Eligibility Date Funding Source Not Applicable Coding Level of Care Code OB Routine Diagnoses Abnormal glucose R73.09 Urinary tract infection in mother during second trimester of O23.42 Trimester: second trimester 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 Doing QID testing. (2) UTI in : Status: Acute Qualifiers: Trimester: second trimester Qualified Code(s): O23.42 - Unspecified infection of urinary tract in , second trimester Comment: at 23 weeks. reculture in 4 weeks 2nd UTI: culture + and daily keflex started until delivery (3) Absent nasal bridge: Status: Acute Comment: possible absent nasal bone on US- fu scan scheduled and offered NIPT-LR (4) Nausea and vomiting during : Status: Acute Comment: michele haney (5) Supervision of high-risk : Status: Acute Qualifiers: Trimester: first trimester Qualified Code(s): O09.91 - Supervision of high risk , unspecified, first trimester Comment: PRR, G1, JACI 07/01/25, girl : Desmond (6) : Status: Acute Qualifiers: Weeks of gestation: 30 weeks Qualified Code(s): Z3A.30 - 30 weeks gestation of Comment: elects NIPT, low risk/declined carrier testing. anatomy reviewed (7) Eczema: Status: Acute Comment: opzelura cream for break outs (8) Sharad's disease: Status: Acute Comment: on Levo - Thyroid labs ordered w/NOB Orders: Orders POC Urinalysis 2 Dip (Clinic) Today Tdap Immunization Today Z23 - Encounter for immunization 04/22/25 [id number] <Electronically signed by Maia helton MD> Date _ Maia Gan MD [facility] Signature: Date (if applicable) CC: ~ [facility] Work Phone: [phone] Progress [facility] [address] [place] [address], [address] [place] [address] OFFICE VISIT Date of Service: 03/11/25 MR#: [id number] Acct: [id number] Name: CHERY MCKEON Rep #: [id number] : 2000 Provider: GISELA Anand Age/Sex: 24/F [place] [facility] Status: Signed Intake Vital Signs 01/15/25 14:30 03/03/25 18:25 03/11/25 15:12 03/11/25 15:18 Height 5 ft 5 in 5 ft 5 in 5 ft 5 in 5 ft 5 in Weight: 175 lb 3 oz BMI 29.1 BP 135/86 H Intake Visit Reasons: 24wk ob Chief Complaint: 24[address] OB [address] Freight Conductor Required: No Is patient in pain?: No [...] 09/16/24 : No PFSH PFSH Surgical History [place] teeth removed S/P cholecystectomy Family History Grandfather Prostate cancer Grandmother Colon cancer CVA (cerebral vascular accident) Grandmother Dementia Father Diabetes Myocardial infarction Skin cancer Mother Heart disease Thyroid disorder Social History adopted: No household members: spouse housing: house current occupational status: employed current occupation: [employer] current occupational exposures/hazards: No pets and animals: [...] 1-2 times per week duration: 15-30 minutes/day guy/mormon: Mandaeism seatbelt use: always do you feel safe at home: Yes 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 GA appropriate handout given. 03/11/25 1531 s CNM> Date _ Kehinde Vlad GISELA Cosigner Signature: Date (if applicable) CC: ~ [facility]08-21-2025 Progress note Author Kehinde Anand [facility] Services Note Date/Time March 11, 2025 3: [address] [place] [address] [facility]'[address], [facility] [address] [place] [address] OFFICE VISIT Date of Service: 03/11/25 MR#: [id number] Acct: [id number] Name: CHERY MCKEON Rep #: [id number] : 2000 Provider: GISELA Anand Age/Sex: 24/F [place] [facility] [place]: Signed Intake Vital Signs 01/15/25 14:30 03/03/25 18:25 03/11/25 15:12 03/11/25 15:18 Height 5 ft 5 in 5 ft 5 in 5 ft 5 in 5 ft 5 in Weight: 175 lb 3 oz BMI 29.1 BP 135/86 H Intake Visit Reasons: 24wk ob Chief Complaint: 24wk OB [address] Freight Conductor Required: No Is patient in pain?: No [...] 09/16/24 : No PFSH PFSH Surgical History [place] teeth removed S/P cholecystectomy Family History Grandfather Prostate cancer Grandmother Colon cancer CVA (cerebral vascular accident) Grandmother Dementia Father Diabetes Myocardial infarction Skin cancer Mother Heart disease Thyroid disorder Social History adopted: No household members: spouse housing: house current occupational status: employed current occupation: [employer] current occupational exposures/hazards: No pets and animals: [...] 1-2 times per week duration: 15-30 minutes/day guy/mormon: Mandaeism seatbelt use: always do you feel safe at home: Yes 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 - Supervision of high risk , unspecified, first trimester Comprehensive Metabolic Profil Today O09.91 - Supervision of high risk , unspecified, first trimester Medications: Refilled famotidine (Pepcid) 20 mg PO BID 60 tabs 6RF Plan Details Additional Comments: ACOG trimester education reviewed and updated. see problem list details for updated plan management information and see below for orders placed at this visit. [place] appropriate handout given. 03/11/25 3845 <Electronically signed by Kehinde walsh CNM> Date _ Kehinde Anand CNM Cosigner Signature: Date (if applicable) CC: ~ [facility] [employer] Work Phone: 1(355) 455-382907-22-2025 Evaluation note* Diagnosis Onset Date Resolution Status Admit Date Absent nasal bridge acute February 09, 2025 10:57am Eczema acute February 09 10:57am Sharad's disease acute February 09, 2025 10:57am Nausea and vomiting during acute February 09, 2025 10:57am acute February 09 10:57am Supervision of high-risk acute February 09, 2025 10:57am Absent nasal bridge acute Augus 2024 5:32pm Eczema acute March 03, 025 5:32pm Sharad's disease acute 2024 5:32pm Nausea and vomiting during acute March 03 5:32pm acute March 03, 025 5:32pm Supervision of high-risk acute March 03 5:32pm UTI in acute February 192024 5:32pm Absent nasal bridge acute 2024 3:08pm Eczema acute March 11, 025 3:08pm Sharad's disease acute 2024 3:08pm Nausea and vomiting during acute March 11 3:08pm acute March 11, 025 3:08pm Supervision of high-risk acute March 11 3:08pm UTI in acute February 202024 3:08pm Absent nasal bridge acute Septe 2024 8:57am Nausea and vomiting during acute March 31, 2025 8:57am acute March 8:57am Supervision of high-risk acute March 31, 2025 8:57am [facility] 2024 8:57am Absent nasal bridge acute Septe [facility] 2024 12:48pm Sharad's disease acute Septe [facility] 2024 12:48pm acute March 12:48pm Supervision of high-risk acute April 07, 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 [facility] 2024 12:48pm Abnormal glucose acute April 22, 2025 3:51pm Absent nasal bridge acute Octob er 2024 3:51pm Eczema acute April 22 3:51pm Sharad's disease acute Octob er 2024 3:51pm Nausea and vomiting during acute April 22 3:51pm acute April 22, 025 3:51pm Supervision of high-risk acute April 22 3:51pm UTI in acute April 22, 2025 3:51pm Abnormal glucose acute May 03, 2025 9:26am Absent nasal bridge acute Octob er 2024 9:26am Eczema acute May 03, 2025 9:26am Sharad's disease acute Octob er 2024 9:26am Nausea and vomiting during acute May 03 9:26am acute May 03, 2025 9:26am Supervision of high-risk acute May 03 9:26am UTI in acute May 03, 2025 9:26am [facility] Work Phone: 1(987) 461-575107-22-2025 Progress [facility] [address] [place] [address], [address] [place] [address] OFFICE VISIT Date of Service: 02/09/25 MR#: [id number] Acct: [id number] Name: CHERY MCKEON Rep #: [id number] : 2000 Provider: Dr. 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 Required: No Is patient in pain?: No [...] Rx promethazine 25 mg rectal 25 mg ID Q4-6H PRN nausea an d 02/09/25 02/09/25 Rx suppository vomiting #12 ea Last Menstrual Period: 09/16/24 Zika: Zika virus screening: Negative : No PFSH PFSH Surgical History [place] teeth removed S/P cholecystectomy Family History Grandfather Prostate cancer Grandmother Colon cancer CVA (cerebral vascular accident) Grandmother Dementia Father Diabetes Myocardial infarction Skin cancer Mother Heart disease Thyroid disorder Social History adopted: No household members: spouse housing: house current occupational status: employed current occupation: [employer] current occupational exposures/hazards: No pets and animals: [...] 1-2 times per week duration: 15-30 minutes/day guy/mormon: Mandaeism seatbelt use: always do you feel safe at home: Yes 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 Para [...] and Symptoms of Preeclampsia, Feeding No , [place] Education and Family Medical Leave or Disability [...] 60 tabs 6RF Refilled promethazine 25 mg ID Q4-6H PRN 12 ea 6RF nausea and vomiting 02/09/25 1143 sunitha SMITH> Date _ Maia Gan MD [facility] Signature: Date (if applicable) CC: ~ [facility]06-27-2025 Evaluation note* Diagnosis Onset Date Resolution Status Admit Date Eczema acute January 15 2:22pm Sharad's disease [...] Augus 2024 5:32pm Eczema acute March 03, 5:32pm Sharad's disease acute Aug2024 5:32pm Nausea and vomiting during acute March 03 5:32pm acute March 03 5:32pm Supervision of high-risk acute March 03 5:32pm UTI in acute February 192024 5:32pm Absent nasal bridge acute 2024 3:08pm Eczema acute March 11, 025 3:08pm Sharad's disease acute 2024 3:08pm Nausea and vomiting during acute March 11 3:08pm acute March 11, 025 3:08pm Supervision of high-risk acute March 11 3:08pm UTI in acute February 202024 3:08pm Absent nasal bridge acute Septe 2024 8:57am Nausea and vomiting during acute March 31, 2025 8:57am acute March 8:57am Supervision of high-risk acute March 31, 2025 8:57am UTI in acute 2024 8:57am Absent nasal bridge acute Septe 2024 12:48pm [facility] 2024 12:48pm acute March 12:48pm Supervision of high-risk acute April 07, 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 UTI in acute [facility] 2024 12:48pm [facility] Work Phone: 1(211) 898-251706-27-2025 Evaluation note* Diagnosis Onset Date Resolution Status Admit Date Eczema acute January 15 2:22pm Sharad's disease [...] acute March 03 5:32pm acute March 03, 5:32pm Supervision of high-risk acute March 03 5:32pm UTI in acute February 192024 5:32pm Absent nasal bridge acute 2024 3:08pm Eczema acute March 11, 025 3:08pm Sharad's disease acute 2024 3:08pm Nausea and vomiting during acute March 11 3:08pm acute March 11, 025 3:08pm Supervision of high-risk acute March 11 3:08pm UTI in acute February 202024 3:08pm Absent nasal bridge acute Septe 2024 8:57am Nausea and vomiting during acute March 31, 2025 8:57am acute March 8:57am Supervision of high-risk acute March 31, 2025 8:57am UTI in acute [facility] 2024 8:57am Absent nasal bridge acute Septe mb2024 12:48pm Sharad's disease acute Septe mb2024 12:48pm acute March 12:48pm Supervision of high-risk acute April 07, 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 UTI in acute [facility] 2024 12:48pm Abnormal glucose acute April 22, 2025 3:51pm Absent nasal bridge acute Octob 2024 3:51pm Eczema acute April 22 025 3:51pm Sharad's disease acute Octob er 2024 3:51pm Nausea and vomiting during acute April 22 3:51pm acute April 22 025 3:51pm Supervision of high-risk acute April 22 3:51pm UTI in acute April 22, 2025 3:51pm [facility] [email or web address] Work Phone: 1(359) 531-949406-02-2025 Evaluation note* Diagnosis Onset Date Resolution Status [...] 2025 10:57am Absent nasal bridge acute Augus t 2024 5:32pm Eczema acute March 03, 025 5:32pm Sharad's disease acute Augus t 2024 5:32pm Nausea and vomiting during acute March 03 5:32pm acute March 03, 025 5:32pm Supervision of high-risk acute March 03 5:32pm UTI in acute February 192024 5:32pm Absent nasal bridge acute Augus 2024 3:08pm Eczema acute March 11, 025 3:08pm Sharad's disease acute Aug2024 3:08pm Nausea and vomiting during acute March 11 3:08pm acute March 11 025 3:08pm Supervision of high-risk acute March 11 3:08pm UTI in acute February 202024 3:08pm Absent nasal bridge acute 2024 8:57am Eczema acute March 8:57am Sharad's disease acute 2024 8:57am Nausea and vomiting during acute March 31, 2025 8:57am acute March 8:57am Supervision of high-risk acute March 31, 2025 8:57am UTI in acute 2024 8:57am [facility] Work Phone: 1(121) 822-874406-02-2025 Evaluation note* Diagnosis Onset Date Resolution Status [...] acute 2024 5:32pm Eczema acute March 03, 025 5:32pm Sharad's disease acute 2024 5:32pm Nausea and vomiting during acute March 03 5:32pm acute March 03 025 5:32pm Supervision of high-risk acute March 03 5:32pm UTI in acute February 192024 5:32pm Absent nasal bridge acute 2024 3:08pm Eczema acute March 11, 025 3:08pm Sharad's disease acute 2024 3:08pm Nausea and vomiting during acute March 11 3:08pm acute March 11, 2 025 3:08pm Supervision of high-risk acute March 11 3:08pm UTI in acute February 202024 3:08pm Absent nasal bridge acute [facility] 2024 8:57am Nausea and vomiting during acute March 31, 2025 8:57am acute March 8:57am Supervision of high-risk acute March 31, 2025 8:57am [facility]TI in acute [facility] 8:57am Absent nasal bridge acute [facility] 2024 12:48pm Eczema acute March 12:48pm Sharad's disease acute [facility] 2024 12:48pm Nausea and vomiting during acute April 07, 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 acute March 12:48pm Supervision of high-risk acute April 07, 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 UTI in acute [facility] 2024 12:48pm [facility] [email or web address] [facility] Work Phone: 1(300) 960-864606-02-2025 Evaluation note* Diagnosis Onset Date Resolution Status [...] Augus 2024 5:32pm Eczema acute March 03, 5:32pm Sharad's disease acute Augus t 2024 5:32pm Nausea and vomiting during acute March 03 5:32pm acute March 03 5:32pm Supervision of high-risk acute March 03 5:32pm UTI in acute February 192024 5:32pm Absent nasal bridge acute 2024 3:08pm Eczema acute March 11, 025 3:08pm Sharad's disease acute 2024 3:08pm Nausea and vomiting during acute March 11 3:08pm acute March 11, 3:08pm Supervision of high-risk acute March 11 3:08pm UTI in acute February 202024 3:08pm Absent nasal bridge acute Septe 2024 8:57am Nausea and vomiting during acute March 31, 2025 8:57am acute March 8:57am Supervision of high-risk acute March 31, 2025 8:57am UTI in acute [facility] 2024 8:57am Absent nasal bridge acute Septe mber 2024 12:48pm Sharad's disease acute Septe mber 2024 12:48pm acute March 12:48pm Supervision of high-risk acute April 07, 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 UTI in acute [facility] 2024 12:48pm [facility] Work Phone: 1(367) 891-990306-02-2025 Progress [facility] [address], [address] [place] [address] OFFICE VISIT Date of Service: 12/21/24 MR#: [id number] Acct: [id number] Name: CHEYR MCKEON Rep #: [id number] : 2000 Provider: GISELA Anand Age/Sex: 24/F [place] [facility] Status: Signed Intake Vital Signs 11/05/15 16:09 11/19/24 08:43 12/21/24 15:20 Height 5 ft 5 in 5 ft 5 in 5 ft 5 in Weight: 170 lb 6 oz 165 lb BMI 28.3 27.4 BP 130/86 H 126/86 H Intake Visit Reasons: 12wk ob Chief Complaint: 12wk OB [address] Freight Conductor Required: No Is patient in pain?: No [...] tabs promethazine 25 mg rectal 25 mg ID Q4-6H PRN nausea an d 12/21/24 12/21/24 Rx suppository vomiting #12 ea Last Menstrual Period: 09/16/24 PFSH PFSH Surgical History [place] teeth removed S/P cholecystectomy Family History Grandfather Prostate cancer Grandmother Colon cancer CVA (cerebral vascular accident) Grandmother Dementia Father Diabetes Myocardial infarction Skin cancer Mother Heart disease Thyroid disorder Social History adopted: No household members: spouse housing: house current occupational status: employed current occupation: [employer] current occupational exposures/hazards: No pets and animals: [...] 1-2 times per week duration: 15-30 minutes/day guy/mormon: Mandaeism seatbelt use: always do you feel safe at home: Yes 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 December [...] 28 WK OB/GLUCOSE April 07, 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 SCREEN FOR GESTATIONAL DM March 7:10am Reason for Visit Admit Date Eczema December [...] 7am Eczema February 09, 2025 10:5 7am 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, 2025 10:5 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 Nausea [...] 2025 3: 08pm Nausea and vomiting during Aug ust 2024 3:08pm March 11, 2025 3: 08pm Supervision of high-risk Augus t 2024 3:08pm UTI in March 11, 2025 3: 08pm 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, 2025 8:57am Nausea and vomiting during Sep marija 2024 8:57am March 31, 2025 8:57am Supervision of high-risk Eulogio mb 2024 8:57am UTI in March 31, 2025 8:57am 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, 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, 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 April 07, 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 Supervision of high-risk [facility] 2024 12:48pm UTI in April 07, 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 Chief Complaint Admit Date HYDRATION December 23, 2024 11:39 am hydration/antiemetics [...] 28 WK OB/GLUCOSE April 07, 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 SCREEN FOR GESTATIONAL DM March 7:10am Reason for Visit Admit Date Eczema January 15, 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, 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 Nausea [...] 5: 32pm Nausea and vomiting during Feb us2024 5:32pm March 03, 2025 5: 32pm Supervision of high-risk Augus t 2024 5:32pm UTI in March 03, 2025 5: 32pm Absent nasal bridge March 11, 2025 3: 08pm Eczema March 11, 2025 3: 08pm Sharad's disease March 11, 2025 3: 08pm Nausea and vomiting during Feb us2024 3:08pm March 11, 2025 3: 08pm Supervision of high-risk Augus t 2024 3:08pm UTI in March 11, 2025 3: 08pm 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, 2025 8:57am Nausea and vomiting during [facility] 2024 8:57am March 31, 2025 8:57am Supervision of high-risk [facility] 2024 8:57am UTI in March 31, 2025 8:57am 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, 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, 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 April 07, 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 Supervision of high-risk [facility] 2024 12:48pm UTI in April 07, 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 Chief Complaint Admit Date HYDRATION December 23, 2024 11:39 am hydration/antiemetics [...] 28 WK OB/GLUCOSE April 07, 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 SCREEN FOR GESTATIONAL DM March 7:10am 30 WK OB April 22, 2025 3: 51pm Reason for Visit Admit Date Eczema January 15, 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, 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 Nausea and vomiting during Ismael e 2024 2:22pm January 15, 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 Supervision of high-risk January 15, 2025 2:22pm 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, 2025 10:5 7am Eczema February 09, 2025 10:5 7am 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, 2025 10:5 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 Nausea and vomiting during Leandro 2024 10:57am February 09, 2025 10:5 7am [...] 31, 2025 8:57am [facility] 8:57[facility] March 31, 2025 8:57am Supervision of high-risk Septe 2024 8:57am UTI in March 31, 2025 8:57am 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, 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, 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 April 07, 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 Supervision of high-risk [facility] 2024 12:48pm UTI in April 07, 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 Abnormal glucose April 22, 2025 3: 51pm 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 22, 2025 3: 51pm Eczema April 22, 2025 3: 51pm Sharad's disease April 22, 2025 3: 51pm Nausea and vomiting during Oct cornelius 2024 3:51pm April 22, 2025 3: 51pm Supervision of high-risk Octob er 2024 3:51pm UTI in April 22, 2025 3: 51pm Chief Complaint Admit Date 20wk ob February 09, 2025 10:5 7am ABDOMINAL PAIN March 03, 2025 5: 32pm ABDOMINAL PAIN March 03, 2025 11 :49pm 24wk ob March 11, 2025 3: 08pm Nurse Visit for Urgency March 31, 2025 8:57am NEEDS ORDER April 07, 2025 12:31pm 28 WK OB/GLUCOSE April 07, 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 SCREEN FOR GESTATIONAL DM March 7:10am 30 WK OB April 22, 2025 3: 51pm 32 WK OB May 03, 2025 9 :26am Reason for Visit Admit Date 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, 2025 10:5 [...] 5: 32pm Nausea and vomiting during Feb us2024 5:32pm March 03, 2025 5: 32pm Supervision [...] 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, 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, 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 April 07, 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 Supervision of high-risk Septe mber 2024 12:48pm UTI in April 07, 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 Abnormal glucose April 22, 2025 3: 51pm 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 22, 2025 3: 51pm Eczema April 22, 2025 3: 51pm Sharad's disease April 22, 2025 3: 51pm Nausea and vomiting during Oct cornelius 2024 3:51pm April 22, 2025 3: 51pm Supervision of high-risk Octob er 2024 3:51pm UTI in April 22, 2025 3: 51pm Abnormal glucose May 03, 2025 9 :26am Absent nasal bridge May 03, 2025 9 :26am Eczema May 03, 2025 9 :26am Sharad's disease May 03, 2025 9 :26am Nausea and vomiting during Oct cornelius 2024 9:26am May 03, 2025 9 :26am Supervision of high-risk Octob er 2024 9:26am UTI in May 03, 2025 9 :26am Additional Source Comments INFORMATION SOURCE (unrecogn ized section and content) DATE CREATED AUTHOR 01/29/2018 [facility] DATE CREATED AUTHOR AUTHOR'S ORGANIZ ATION 04/25/2019 [facility] DATE CREATED AUTHOR AUTHOR'S ORGANIZ ATION 04/25/2019 [facility] ([place]) DATE CREATED AUTHOR AUTHOR'S ORGANIZ ATION 03/30/2024 [facility] DATE CREATED AUTHOR AUTHOR'S ORGANIZ ATION 06/16/2024 [facility] DATE CREATED AUTHOR AUTHOR'S ORGANIZ ATION 02/20/2025 [facility] DATE CREATED AUTHOR AUTHOR'S ORGANIZ ATION 05/25/2025 [facility] Care Teams (unrecognized sec tion and content) Team Status: Active Member Role Status Dates Ángela Fermin PA, PA-C Family Provider Active Anna Marie Sales PA, PA Primary Care Provider Active Team Status: Inactive Member Role Status Dates Dr. Oj Ordonez MD Attending Provider, Referring Pr ovider Active Anna Marie Sales PA, PA Primary Care Provider Active Team Status: Active Member Role Status Dates Anna Marie Sales PA, PA Primary Care Provider Active Team Status: Inactive Member Role Status Dates Anna Marie Sales PA, PA Primary Care Provider Active Start: November 03, 2024 End: November 03, 2024 Anna Marie Sales PA, PA Referring Provider Active Start: November 03, 2024 End: November 03, 2024 Mechelle Francois POLLUTION CONTROL CHEMIST, POLLUTION CONTROL CHEMIST-C Attending Provider Active Start: November 03, 2024 End: November 03, 2024 Team Status: Inactive Member Role Status Dates Anna Marie Darlinger PA, PA Primary Care Provider Active Start: November 19, 2024 End: November 19, 2024 Anna Marie Darlinger PA, PA Referring Provider Active Start: November [...] 2024 End: November 03, 2024 Mechelle Francois NP, POLLUTION CONTROL CHEMIST-C Attending Provider Active Start: November 03, 2024 [...] March 03, 2025 Dr. Rita Rivas , Attending Provider Activ e Start: March [...] March 03, 2025 Dr. Rita Rivas DO Other Provider Active Start: March 03, [...] 03, 2025 Dr. Rita Rivas , DO Attending Provider Activ e Start: March 03, 2025 End: March 03, 2025 Dr. Rita Rivas , DO Referring Provider Activ e Start: March 03, 2025 End: March 03, 2025 Team Status: Active Member Role/Relationship Status Dates Anna Marie Sales PA, PA Primary Care Provider Active Start: March 03, 2025 Dr. Rita Rivas , DO Attending Provider Activ e Start: March 03, 2025 Dr. Rita Rivas , DO Referring Provider Activ e Start: March [...] 2025 End: March 31, 2025 Mechelle Francois NP, POLLUTION CONTROL CHEMIST-C Attending Provider Active Start: March 31, 2025 End: March 31, 2025 Team Status: Active Member Role/Relationship Status Dates Anna Marie Saels PA, PA Primary care physician Active Team [...] 03, 2025 Dr. Rita Rivas , DO Attending physician Acti ve Start: March 03, 2025 End: March 03, 2025 Dr. Rita Rivas , DO Referring Provider Activ e Start: March 03, 2025 End: March 03, 2025 Team Status: Active Member Role/Relationship Status Dates Anna Marie Sales PA, PA Primary care physician Active Start: March 03, 2025 Dr. Rita Rivas , Attending physician Acti ve Start: March 03, 2025 Dr. Rita Rivas , DO Referring Provider Activ e Start: March 03, 2025 Dr. Rita Rivas , DO Nurse Practitioner Activ e Start: March [...] 31, 2025 End: March 31, 2025 Anna Mraie Sales PA, PA Referring Provider Active Start: March 31, 2025 End: March 31, 2025 Mechelle Francois NP, POLLUTION CONTROL CHEMIST-C Attending physician Active Start: March 31, 2025 End: March 31, 2025 Team Status: Active Member Role/Relationship Status Dates PATRICIA Lizarraga Primary care physician Active Start: March 31, 2025 Mechelle Francois POLLUTION CONTROL CHEMIST, POLLUTION CONTROL CHEMIST-C Attending physician Active Start: March 31, 2025 Mechelle Francois POLLUTION CONTROL CHEMIST, POLLUTION CONTROL CHEMIST-C Referring Provider Active Start: March 31, 2025 Team Status: Active Member Role/Relationship Status Dates PATRICIA Lizarraga Primary care physician Active Start: April 07, 2025 Dr. Rita Rivas DO Attending physician Active Start: March Dr. Rita Rivas DO Referring Provider Active Start: March Team Status: Inactive Member Role/Relationship Status Dates PATRICIA Lizarraga Primary care physician Active Start: April 07, 2025 End: April 07, 2025 PATRICIA Lizarraga Referring Provider Active Start: April 07, 2025 End: April 07, 2025 Mechelle Francois POLLUTION CONTROL CHEMIST, POLLUTION CONTROL CHEMIST-C Attending physician Active Start: April 07, 2025 End: April 07, 2025 Team Status: Inactive Member Role/Relationship Status Dates PATRICIA Lizarraga Primary care physician Active Start: March 31, 2025 End: March 31, 2025 Mechelle Francois POLLUTION CONTROL CHEMIST, POLLUTION CONTROL CHEMIST-C Attending physician Active Start: March 31, 2025 End: March 31, 2025 Mechelle Francois POLLUTION CONTROL CHEMIST, POLLUTION CONTROL CHEMIST-C Referring Provider Active Start: March 31, 2025 End: March 31, 2025 Team Status: Inactive Member Role/Relationship Status Dates PATRICIA Lizarraga Primary care physician Active Start: April 07, 2025 End: April 07, 2025 Dr. Rita Rivas DO Attending physician Active Start: March End: April 07, 2025 Dr. Rita Rivas DO Referring Provider Active Start: March End: April 07, 2025 Team Status: Active Member Role/Relationship Status Dates Anna Marie GOMEZ PA Primary care physician Active Start: April 20, 2025 Mechelle Francois POLLUTION CONTROL CHEMIST, POLLUTION CONTROL CHEMIST-C Attending physician Active Start: April 20, 2025 Mechelle Francois POLLUTION CONTROL CHEMIST, POLLUTION CONTROL CHEMIST-C Referring Provider Active Start: April 20, 2025 Team Status: Inactive Member Role/Relationship Status [...] 03, 2025 Dr. Rita Rivas , DO Referring Provider Activ e Start: March 03, 2025 End: March 03, 2025 Team Status: Active Member Role/Relationship Status Dates Anna Marie Sales PA, PA Primary care physician Active Start: March 03, 2025 Dr. Rita Rivas , DO Attending physician Acti ve Start: March 03, 2025 Dr. Rita Rivas , DO Referring Provider Activ e Start: March 03, 2025 Dr. Rita Rivas , DO Nurse Practitioner Activ e Start: March 03, 2025 Team Status: Inactive Member Role/Relationship Status Dates Anna Marie Sales PA, PA Primary care physician Active Start: March 11, 2025 End: March 11, 2025 Anna Marie Darlinger PA, PA Referring Provider Active Start: March 11, 2025 End: March 11, 2025 Kheinde Anand CNM Attending physician Active Start: March [...] 31, 2025 End: March 31, 2025 Anna Maire Darlinger PA, PA Referring Provider Active Start: March 31, 2025 End: March 31, 2025 Mechelle Francois POLLUTION CONTROL CHEMIST, POLLUTION CONTROL CHEMIST-C Attending physician Active Start: March 31, 2025 End: March 31, 2025 Team Status: Inactive Member Role/Relationship Status Dates Anna Marie Sales PA, PA Primary care physician Active Start: March 31, 2025 End: March 31, 2025 Mechelle Francois POLLUTION CONTROL CHEMIST, POLLUTION CONTROL CHEMIST-C Attending physician Active Start: March 31, 2025 End: March 31, 2025 Mechelle Francois POLLUTION CONTROL CHEMIST, POLLUTION CONTROL CHEMIST-C Referring Provider Active Start: March 31, 2025 End: March 31, 2025 Team Status: Inactive Member Role/Relationship Status Dates Anna Marie Darlinger PA, PA Primary care physician Active Start: April 07, 2025 End: April 07, 2025 Dr. Rita Rivas DO Attending physician Active Start: March End: April 07, 2025 Dr. Rita Rivas DO Referring Provider Active Start: March End: April 07, 2025 Team Status: Inactive Member Role/Relationship Status Dates Anna Marie Sales PA, PA Primary care physician Active Start: April 07, 2025 End: April 07, 2025 Anna Marie Sales PA, PA Referring Provider Active Start: April 07, 2025 End: April 07, 2025 Mechelle Francois POLLUTION CONTROL CHEMIST, POLLUTION CONTROL CHEMIST-C Attending physician Active Start: April 07, 2025 End: April 07, 2025 Team Status: Active Member Role/Relationship Status Dates Anna Marie Sales PA, PA Primary care physician Active Start: April 20, 2025 Mechelle Francois POLLUTION CONTROL CHEMIST, POLLUTION CONTROL CHEMIST-C Attending physician Active Start: April 20, 2025 Mechelle Francois POLLUTION CONTROL CHEMIST, POLLUTION CONTROL CHEMIST-C Referring Provider Active Start: April 20, 2025 Team Status: Inactive Member Role/Relationship Status Dates Anna Marie Sales PA, PA Primary care physician Active Start: April 22, 2025 End: April 22, 2025 Anna Marie Sales PA, PA Referring Provider Active Start: April 22, 2025 End: April 22, 2025 Dr. Maia Gan MD Attending physician Active Start: April 22, 2025 End: April 22, 2025 Team Status: Inactive Member Role/Relationship Status [...] Active Member Role/Relationship Status Dates Anna Marie Darlinger [...] 2025 End: March 11, 2025 Anna Marie Darlinger PA, PA Referring Provider Active Start: March [...] 2025 End: March 31, 2025 Mechelle Francois POLLUTION CONTROL CHEMIST, POLLUTION CONTROL CHEMIST-C Attending physician Active Start: March 31, 2025 End: March 31, 2025 Team Status: Inactive Member Role/Relationship Status Dates Anna Marie Sales PA, PA Primary care physician Active Start: March 31, 2025 End: March 31, 2025 Mechelle Francois POLLUTION CONTROL CHEMIST, POLLUTION CONTROL CHEMIST-C Attending physician Active Start: March 31, 2025 End: March 31, 2025 Mechelle Francois POLLUTION CONTROL CHEMIST, POLLUTION CONTROL CHEMIST-C Referring Provider Active Start: March 31, 2025 End: March 31, 2025 Team Status: Inactive Member Role/Relationship Status Dates Anna Marie Sales PA, PA Primary care physician Active Start: April 07, 2025 End: April 07, 2025 Dr. Rita Rivas DO Attending physician Active Start: March End: April 07, 2025 Dr. Rita Rivas DO Referring Provider Active Start: March End: April 07, 2025 Team Status: Inactive Member Role/Relationship Status Dates Anna Marie Sales PA, PA Primary care physician Active Start: April 07, 2025 End: April 07, 2025 Anna Marie Sales PA, PA Referring Provider Active Start: April 07, 2025 End: April 07, 2025 Mechelle Francois POLLUTION CONTROL CHEMIST, POLLUTION CONTROL CHEMIST-C Attending physician Active Start: April 07, 2025 End: April 07, 2025 Team Status: Inactive Member Role/Relationship Status Dates Anna Marie Sales PA, PA Primary care physician Active Start: April 20, 2025 End: April 20, 2025 Mechelle Francois POLLUTION CONTROL CHEMIST, POLLUTION CONTROL CHEMIST-C Attending physician Active Start: April 20, 2025 End: April 20, 2025 Mechelle Francois POLLUTION CONTROL CHEMIST, POLLUTION CONTROL CHEMIST-C Referring Provider Active Start: April 20, 2025 End: April 20, 2025 Team Status: Inactive Member Role/Relationship Status Dates Anna Marie Darlinger PA, PA Primary care physician Active Start: April 22, 2025 End: April 22, 2025 Anna Marie Darlinger PA, PA Referring Provider Active Start: April 22, 2025 End: April 22, 2025 Dr. Maia Gan MD Attending physician Active Start: April 22, 2025 End: April 22, 2025 Team Status: Inactive Member Role/Relationship Status Dates Anna Marie Darlinger PA, PA Primary care physician Active Start: May 03, 2025 End: May 03, 2025 Anna Marie Sales PA, PA Referring Provider Active Start: May 03, 2025 End: May 03, 2025 Dr. Rita Rivas DO Attending physician Acti ve Start: May 03, 2025 End: May 03, 2025 Goals (unrecognized section and content) Type Care Experience svdLabor Preferences -CB/BF classes: @PPClabor support person: Jakelabor intervention preferences: []pain management options preferred: epidural [...] or prosecute any alcohol or drug abuse patient.[facility] the event this information is protected by the Federal Confidentiality of Alcohol and Drug Abuse Patient Records regulations: The Federal rules restrict any use of the information to criminally investigate or prosecute any alcohol or drug abuse patient.[facility] the event this information is protected by the Federal Confidentiality of Alcohol and Drug Abuse Patient Records regulations: The Federal rules restrict any use of the information to criminally investigate or prosecute any alcohol or drug abuse patient.[facility] the event this information is protected by the Federal Confidentiality of Alcohol and Drug Abuse Patient Records regulations: The Federal rules restrict any use of the information to criminally investigate or prosecute any alcohol or drug abuse patient.[facility] Reason for Visit (unrecogniz ed section [...] BE BASED ON THE PRIMARY CLINICAL RECORDS. [employer] [facility] provides no warranty or guarantee of the accuracy or completeness of information in this document.
== END | disposition home or self-care (01) ==
LOC: US 17:53
PROVIDERS: PCP Physician Assistant; Referring Provider Obstetrics & Gynecology; Visit Provider Obstetrics & Gynecology
DX: O26.843 Uterine size-date discrepancy, third trimester (principal); Z3A.00 Weeks of gestation of pregnancy not specified
CPT/HCPCS: 76816

== ENCOUNTER → 2025-06-08 | Outpatient (CLI) | payer MEDICAID, SELFPAY | END | disposition home or self-care (01) | LOC: LABSPEC 15:11 | PROVIDERS: PCP Physician Assistant; Visit Provider Obstetrics & Gynecology | DX: O09.91 Supervision of high risk pregnancy, unspecified, first trimester (principal); Z3A.00 Weeks of gestation of pregnancy not specified | CPT/HCPCS: 87081 ==

== ENCOUNTER 2025-06-11 05:40 | Inpatient (IN) | payer MEDICAID, SELFPAY ==
[2025-06-11] VITALS (20 sets, daily range): BP systolic 114–150; BP diastolic 73–104; PULSE 71–97; RESP 14–20; TEMP 36.1–36.6; O2SAT 99–100; BMI 31.1
--- OUTSIDE RECORDS SUMMARY | 2025-06-11 04:48 | XMS RPT_ITS | CCD ---
Author Organization [facility] Care Team Providers Care Manager Play Name Role Phone JENY, ÁNGELA Unavailable Unavailable [...] Ordonez MD Unavailable Dermatology Provider Unavailable Unavailable Azul SMITH, Dr. Natalia Ziegler. Unavailable ENT Provider Unavailable Unavailable Ady SMITH, Dr. Pablo Nielsen Unavailable [phone] Lloyd Pulido MD Unavailable Elisa REINOSO, Kristin Unavailable Robby SMITH, Farshad Parada Unavailable Maya Maxwell MA Unavailable Unavailable Gogoi (scribe), Hemanta Unavailable Unavaila Tony Batista LPN Unavailable Unavailable Jeny MARTINEZ, Ángela D Unavailable Rich MARTINEZ, Frederic Noland Unavailable Abrahan REINOSO, Sandra Unavailable Unavailable Mandi Maldonado RN Unavailable Marine LUNA, Conchita Bazzi Unavailable Unavailable Lacy POULTRY TENDER, Lloyd Ramirez Unavailable Unavailab Sandra Dewey MA Unavailable Unavailable Vess POULTRY TENDER, Jaziel Dawn Unavailable Unavailable Wengerchery BRADYRita Belle Unavailable Unavailabl e Unavailable Unavailable Unavailable Unavailable Unavailable Primary Care Provider Unavailabl e ELIJAH LYMAN Attending Unavailable ELIJAH LYMAN Referring Unavailable ELIJAH LYMAN Attending Unavailable Madina Jules LPN Unavailable Unavailabl e Sales PA, [place] Primary Care Provider Sales PA, Anna Marie Referring Provider Mechelle Dan Attending Provider Kehinde Anand CNM Attending Provider [phone] Kehinde Anand CNM Referring Provider [phone] Malik SMITH, Dr. Carvalho Attending Provider [phone] Dr. Maia Gan MD Referring Provider [phone] Dr. Rita Rivas DO Attending Provider JULIANNA ANSARI Attending Unavailable KEHINDE ANAND Referring Unavailable [facility] Primary Care Unavailable BISHNU MORENO Attending Unavailable KEHINDE ANAND Referring Unavailable [facility] Primary Care Unavailable Dr. Rita Rivas DO Referring Provider [facility], [place] Primary Care Provider [facility], Anna Marie Referring Provider Dr. Rita Rivas DO Other Provider [facility], [place] Primary Care Provider Sales PA, Anna Marie Referring Provider Kehinde Anand CNM Attending Provider [phone] Kehinde Anand CNM Referring Provider Mechelle Dan Attending Provider Henrry GOMEZ [place] Primary Care Physician Kehinde Anand CNM Attending Physician Malik SMITH, Dr. Carvalho Attending Physician Dr. Rita Rivas DO Attending Physician Dr. Rita Rivas DO Nurse Practitioner Priscila VARNISH SUPERVISOR-C, Mechelle Attending Physician [phone] Priscila VARNISH SUPERVISOR-C, Mechelle Referring Provider [phone] Sales PA, Anna Marie Primary Care Physician Kehinde Anand CNM Attending Physician [phone] Vlad LOWERYM, Kehinde Referring Provider [phone] Sales PA, Anna Marie Referring Provider Sales PA, Anna Marie Primary Care Physician Sales PA, Anna Marie Referring Provider Malik SMITH, Dr. Carvalho Attending Physician Dr. Rita Rivas DO Attending Physician Vlad HIGGINS, Kehinde Attending Physician [phone] Vlad HIGGINS, Kehinde Referring Provider [phone] Sales PA, Anna Marie Referring Unavailable Sales PA, Anna Marie Primary Care Unavailable Kehinde Anand Attending Unavailable Sales PA, Anna Marie Primary Care Unavailable Sales PA, Anna Marie Referring Unavailable Mechelle Francois Attending Unavailable Sales PA, Anna Marie Referring Unavailable Rita Rivas Attending Unavailabl e Sales PA, [place] Primary Care Unavailable Sales PA, Anna Marie Referring Unavailable Maia Gan Attending Unavailable Sales PA, [place] Primary Care Unavailable Maia Gan Attending Unavailable Sales PA, Anna Marie Primary Care Unavailable Maia Gan Referring Unavailable Sales PA, [place] Primary [...] Unavailable Sales PA, Anna Marie Referring Unavailable Slaes PA, Anna Marie Primary Care Unavailable Sales PA, Anna Marie Referring Unavailable Kehinde Anand Attending Unavailable Sales PA, Anna [place] Primary Care Unavailable Mechelle Francois Referring Unavailable Mechelle Francois Attending Unavailable Sales PA, Anna Marie Primary Care Unavailable Kehinde Anand Referring Unavailable Kehinde Anand Attending Unavailable Sales PA, Anna Marie Primary Care Unavailable Kehinde Anand Referring Unavailable Kehinde Anand Attending Unavailable Sales PA, Anna Marie Primary Care Unavailable Mechelle Francois Referring Unavailable Mechelle Francois Attending Unavailable Sales PA, Anna Marie Primary Care Unavailable Vande Velde, Rita Referring Unavailabl e Vande Velde, Rita Attending Unavailabl e Vande Velde, Rita Attending Unavailabl e Vande Velde, Rita Referring Unavailabl e Sales PA, Anna [place] Primary Care Unavailable Vande Velde, Rita Attending Unavailabl e Vande Velde, Rita Admitting Unavailabl e Vande Velde, Rita Referring Unavailabl e Sales PA, Anna Marie Primary Care Unavailable Sales PA, Anna Marie Primary Care Unavailable Sales PA, Anna Marie Referring Unavailable CambridgeMechelle berkowitz Attending Unavailable Sales PA, Anna Marie Primary Care Unavailable Kehinde Anand Referring Unavailable Kehinde Anand Attending Unavailable Sales PA, Anna Marie Referring Unavailable PriscilaMechelle berkowitz Attending Unavailable Sales PA, Anna Marie Primary Care Unavailable Sales PA, Anna Marie Primary Care Unavailable Sales PA, Anna Marie Referring Unavailable Maia Gan Attending Unavailable Sales PA, Anna Marie Primary Care Unavailable Sales PA, Anna Amrie Referring Unavailable Vande Velde, Rita Attending Unavailabl e Sales PA, Anna Marie Primary Care Unavailable Sales PA, Anna Marie Referring Unavailable Maia Gan Attending Unavailable Medications Current Medications Medication Drug [...] Pump device Active 0 .ROUTE .MEDSUPPLY 1 0 April 22, 2025 12:00am As directed cephalexin [...] topical cream ; (1.5 %) triamcinolone acetonide 0.38909 mg/mg topical ointment (20 sources) Corticosteroid Start: [...] Drug Class(es) Dates Sig (Normalized) Sig (Original) [id number] 200 actuat albuterol 0.09 mg/actuat metered dose [...] as needed for nausea and vomiting 90 November 19, 2024 12:00am March 11, 2025 [...] glucose level; Translations: [Other abnormal glucose] Onset: 06-01-2025 04-07-2025 Episodic Comment on above: 3 hr [...] until delivery Other complications of (2 sources) Supervision of high risk , unspecified, first trimester; Translations: [Supervision of high risk , unspecified, first trimester] Onset: 03-31-2025 Episodic Other complications of (2 sources) Uterine size-date discrepancy, third trimester; Translations: [Uterine size-date discrepancy, third trimester] Onset: 05-28-2025 Episodic Other complications of (1 source) Unspecified infection of urinary tract in , second trimester; Translations: [Unspecified infection of urinary tract in , second trimester] Onset: 06-01-2025 Episodic Other complications of (2 sources) Unspecified [...] 08-18-2019 Episodic Residual codes; unclassified (1 source) 35 weeks gestation of ; Translations: [35 weeks gestation of ] Onset: 06-01-2025 Episodic Residual codes; unclassified (1 source) 34 [...] was treated with Cefdinir last week by [facility] but does not seem to be getting [...] Note for Upper respiratory infection: Pt. saw [facility] 10/04/16 and was diagnosed with r.o.m.and treated [...] and cefdinir (diagnosed with bronchitis 04/04/16 per [facility])) and pt is continuing to use ventolin [...] Care (Patient was seen on 11/05/2015 at [facility] with Dr. Dick for a concussion with [...] last year. 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 09-07-2010 Unclassified (20 sources) Cough - [...] Care (Patient was seen on 11/05/2015 at [facility] with Dr. Dick for a concussion with [...] from that time to when she saw LEGAL OFFICER in [place] it was higher. Hot flashes are more in the evenings - cheeks are bright red and warm and then rest of body can do that.Saw LEGAL OFFICER for pain with intercourse - some improvement [...] Name Value Interpretation Reference Range Facil ity Carbon Rod Inserter Office Visit Reporton 06-01-2025 Carbon Rod Inserter Office Visit Report [facility] [address], [address] [place] [address] OFFICE VISIT Date of Service: 06/01/25 MR#: [id number] Acct: [id number] Name: CHERY MCKEON Rep #: [id number] : 2000 Provider: GISELA Franks ams Age/Sex: 24/F [place] [facility] Status: Signed Intake Vital Signs 04/07/25 12:52 05/20/25 13:55 06/01/25 13:02 06/01/25 13:03 Height 5 ft 5 in 5 ft 5 in 5 ft 5 in 5 ft 5 in Weight: 186 lb BMI 30.9 BP 121/84 H Intake Visit Reasons: 36 wk ob Cyanide Pot Hardener Required: No Is patient in pain?: No Allergies No Known Allergies Allergy (Verified 06/01/25 13:02) Medications ???Medication ???Instructions ???Recorded ???Confirmed ???Type loratadine 10 mg tablet (Allergy 10 mg PO DAILY 11/05/15 06/01/25 H istory Relief (loratadine)) cholecalciferol (vitamin D3) 10 20 mcg PO QDAY 11/03/24 06/01/25 H istory mcg (400 unit) capsule docosahexaenoic acid 200 mg 1 mg PO DAILY 11/03/24 06/01/25 Hi story capsule ( DHA) levothyroxine 25 mcg tablet 50 mcg PO QDAY 11/19/24 06/01/25 H istory (Levo-T) famotidine 20 mg tablet (Pepcid) 20 mg PO BID #60 tabs 03/11/2506/15 Rx cephalexin 500 mg capsule 500 mg PO DAILY #30 caps 04/07/25 06/01/25 Rx blood sugar diagnostic (Blood #120 ea 04/21/25 06/01/25 Rx Glucose Test strips) blood-glucose meter #1 ea 04/21/25 06/01/25 Rx lancets 30 gauge (Droplet Lancets) #200 ea 04/21/25 06/01/25 Rx breast pump #1 ea 04/22/25 06/01/25 Rx Last Menstrual Period: 09/16/24 Zika: Zika virus screening: Negative : No PFSH PFSH Surgical History [place] teeth removed S/P cholecystectomy Family History Grandfather Prostate cancer Grandmother Colon cancer CVA (cerebral vascular accident) Grandmother Dementia Father Diabetes Myocardial infarction Skin cancer Mother Heart disease Thyroid disorder Social History adopted: No household members: spouse housing: house current occupational status: employed current occupation: [employer] current occupational exposures/hazards: No pets and animals: [...] 1-2 times per week duration: 15-30 minutes/day guy/mu-ism: Zoroastrian seatbelt use: always do you feel safe at home: Yes 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 OB Visit JACI Calculator Estimated Delivery Date Method Current WG Current Estimate 07/01/25 Ultrasound #1 35w 5d Other Estimates 06/23/25 LMP (Certain) 36w 6d Expected Delivery Route/Plan Labor Preferences- CB/BF [...] -???-???-???- 167 -???-???-???-???-? ??-???-???-???-??? -???-???-???- KW- CRL (more content not included)... Normal [facility] OB Limited With Biometricson 05-28-2025 OB Limited With Biometrics [facility] Imaging Services [address] [place], [place] [id number] OB Limited With Biometrics MR#: [id number] Acct: [id number] Name: CHERY MCKEON Rep #: [id number] : 2000 F 24 From: Yrn huertas MD PCP: PATRICIA Mckoy Status: [facility] CLI Study: OB Limited With Biometrics Date of Exam: 05/28 Exam# [id number] Ordering Dr: Maia Gan PROCEDURE: OB LIMITED WITH BIOMETRICS 05/28/2025 REASON FOR EXAM: GROWTH TECHNIQUE: Procedure Code: USOBGROWTH Modality: US Procedure: OB LIMITED WITH BIOMETRICS COMPARISON: None FINDINGS LMP: September 24, 2024. Number: 1 Position: Vertex Placental Position: Anterior and not low-lying Placental Abnormalities: No evidence of previa. DIMENSIONS: Biparietal Diameter: 8.9 cm:/36 weeks and 0 days: 78 percentile Head Circumference: 30.9 cm: 34 weeks and 3 days: 8 percentile/ Abdominal Circumference: 31.5 cm: 35 weeks and 3 days: 67 percentile/ Femur Length: 6.9 cm: 35 weeks and 3 days: 51st percentile./ ESTIMATED WEIGHT: 2742 g plus/-411 g ESTIMATED WEIGHT PERCENTILE (24+ weeks): 63rd ESTIMATED GESTATIONAL AGE: Baseline: 35 weeks and 1 day By Ultrasound: 35 weeks and 0 days ESTIMATED DATE OF DELIVERY: Baseline: July 12, 2025 By Ultrasound: April 13, 2025 BIOPHYSICAL ASSESSMENT: Amniotic Fluid Volume: 5.5 cm Amniotic Fluid Index: 12.8 cm (8-24 cm normal range) Cardiac Motion: 153 beats per minute (average) Trunk and Limb Motion: Present. MATERNAL ANATOMY: Adnexa: Neither maternal ovary is successfully identified. US/OB Limited With Biometrics IMPRESSION: Single live intrauterine gestation with a mean gestational age of 35 weeks. Reading Location: [facility] CC: Dr. Maia Gan MD; PATRICIA Mckoy Jute Bag Sewer: Signed Normal [facility] Carbon Rod Inserter Office Visit Reporton 05-20-2025 Carbon Rod Inserter Office Visit Report [facility]'s [address], [facility] [address] [place] [address] OFFICE VISIT Date of Service: 05/20/25 MR#: [id number] Acct: [id number] Name: CHERY MCKEON Rep #: [id number] : 2000 Provider: Dr. Maia dubois MD Age/Sex: 24/F Location: [facility] Status: Signed Intake Vital Signs 04/07/25 12:52 05/03/25 09:28 05/20/25 13:55 Height 5 ft 5 in 5 ft 5 in 5 ft 5 in Weight: 188 lb 1 oz BMI 31.3 BP 131/83 H Intake Visit Reasons: 34 wk ob Cyanide Pot Hardener Required: No Is patient in pain?: No [...] Negative : No PFSH PFSH Surgical History [place] teeth removed S/P cholecystectomy Family History Grandfather Prostate cancer Grandmother Colon cancer CVA (cerebral vascular accident) Grandmother Dementia Father Diabetes Myocardial infarction Skin cancer Mother Heart disease Thyroid disorder Social History adopted: No household members: spouse housing: house current occupational status: employed current occupation: [employer] current occupational exposures/hazards: No pets and animals: [...] 1-2 times per week duration: 15-30 minutes/day guy/mu-ism: Zoroastrian seatbelt use: always do you feel safe at home: Yes 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 Normal [facility] - Chemistry and C hemistry - challengeOrdered By: Rita Damon on 05-03-2025 Glucose Ql (U) Negative [facility] - UrinalysisOrder ed By: Rita Damon on 05-03-2025 Protein Ql (U) Negative [facility] Carbon Rod Inserter Office Visit Reporton 05-03-2025 Carbon Rod Inserter Office Visit Report [facility] [address], [address] [place] [address] OFFICE VISIT Date of Service: 05/03/25 MR#: [id number] Acct: [id number] Name: CHERY MCKEON Rep #: [id number] : 2000 Provider: Dr. Rita Warner DO Age/Sex: 24/F Location[place] [facility] Status: Signed Intake Vital Signs 03/11/25 15:18 04/22/25 15:56 05/03/25 09:28 05/03/25 09:28 Height 5 ft 5 in 5 ft 5 in 5 ft 5 in 5 ft 5 in Weight: 182 lb BMI 30.2 BP 118/81 H Intake Visit Reasons: 32 WK OB Cyanide Pot Hardener Required: No Is patient in pain?: No [...] Negative : No PFSH PFSH Surgical History [place] teeth removed S/P cholecystectomy Family History Grandfather Prostate cancer Grandmother Colon cancer CVA (cerebral vascular accident) Grandmother Dementia Father Diabetes Myocardial infarction Skin cancer Mother Heart disease Thyroid disorder Social History adopted: No household members: spouse housing: house current occupational status: employed current occupation: [employer] current occupational exposures/hazards: No pets and animals: [...] 1-2 times per week duration: 15-30 minutes/day guy/mu-ism: Zoroastrian seatbelt use: always do you feel safe at home: Yes 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 -???-???-???- (more content not included)... Normal [facility] - Chemistry and C hemistry - challengeOrdered By: Maia Gan on 04-22-2025 Glucose Ql (U) Negative [facility] - UrinalysisOrder ed By: Maia Gan on 04-22-2025 Protein Ql (U) Negative [facility] Carbon Rod Inserter Office Visit Reporton 04-22-2025 Carbon Rod Inserter Office Visit Report [facility] [address], [address] [place] [address] OFFICE VISIT Date of Service: 04/22/25 MR#: [id number] Acct: [id number] Name: CHERY MCKEON Rep #: [id number] : 2000 Provider: Dr. Maia dubois MD Age/Sex: 24/F Location: [facility] Status: Signed Intake Vital Signs 03/11/25 15:18 04/07/25 12:52 04/22/25 15:56 Height 5 ft 5 in 5 ft 5 in 5 ft 5 in Weight: 176 lb 3 oz 179 lb BMI 29.3 29.7 BP 117/80 119/81 H Intake Visit Reasons: 30 WK OB Cyanide Pot Hardener Required: No Is patient in pain?: No Allergies No Known Allergies Allergy (Verified 04/22/25 15:55) Medications ???Medication ???Instructions ???Recorded ???Confirmed ???Type loratadine 10 mg tablet (Allergy 10 mg PO DAILY 11/05/15 04/22/25 H istory Relief (loratadine)) cholecalciferol (vitamin D3) 10 20 mcg PO QDAY 11/03/24 04/22/25 H istory mcg (400 unit) capsule docosahexaenoic [...] Negative : No PFSH PFSH Surgical History [place] teeth removed S/P cholecystectomy Family History Grandfather Prostate cancer Grandmother Colon cancer CVA (cerebral vascular accident) Grandmother Dementia Father Diabetes Myocardial infarction Skin cancer Mother Heart disease Thyroid disorder Social History adopted: No household members: spouse housing: house current occupational status: employed current occupation: [email or web address] current occupational exposures/hazards: No pets and animals: [...] 1-2 times per week duration: 15-30 minutes/day guy/mu-ism: Zoroastrian seatbelt use: always do you feel safe at home: Yes 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 declines (more content not included)... Normal [facility] Gestational GTT 3HR 100gon 0 04-20-2025 GEST GTT 100gm Normal [facility] Comment on above: Order Comment: Y Result Comment: FAST ING 89 Col: 04/20/25 0715 GLUCOSE TOLERANCE TEST FOR Reference Interval GESTATIONAL DIABETES Fasting <105 mg/dL 1 hour <190 mg/dl 2 hour <165 mg/dl 3 hour <145 mg/dl 1 HR GLU Col: 04/20/25 0814 2 HR GLU Col: 04/20/25 0914 3 HR GLU Col: 04/20/25 1014 Performed By: #### M 100.2200 #### [facility] [address] [place], [place], [address] Quantitative serum or plasma 3 hour gestational glucose tolerance panelOrdered By: Mechelle Francois on 04-20-2025 Glucose tolerance 3 hours gestational panel See comment [facility] Comment on above: FASTING 89 Col: 03/24 0715GLUCOSE TOLERANCE TEST FOR Reference Interval GESTATIONAL DIABETES Fasting <105 mg/dL 1 hour <190 mg/dl 2 hour <165 mg/dl 3 hour <145 mg/dl Urine Cultureon 04-09-2025 URC Below infection level. Mixed Gram Positive Organisms [place] Count 1000-10,000 MIXC Mixed contaminants. Submit a new specimen if indicated. Normal [facility] Comment on above: Performed By: #### M 100.2200 #### [facility] [address] [place], [place], [address] Absolute lymphocyte countOrd ered By: Mechelle Francois on 04-07-2025 Lymphocytes Auto (Unsp spec) [#/Vol] 1.08 10*3/uL 0.83-4.51 [facility] Absolute neutrophil countOrd ered By: Mechelle Francois on 04-07-2025 Neutrophils (Bld) [#/Vol] 9.1 10*3/uL High 2.0-7.7 [facility] Automated lymphocyte count a s percentage of total leukocytesOrdered By: Mechelle Francois on 04-07-2025 Lymphocytes/100 WBC Auto (Unsp spec) 9.6 % Low 19-41 [facility] Basophil percentageOrdered B y: Mechelle Francois on 04-07-2025 Basophils/100 WBC (Bld) 0.3 % 0-1 [facility] CBC W/Diff, Automatedon 03-22 Absolute Lymph 1.08 X10 3/uL Normal 0.83-4.51 [facility] Comment on above: Performed By: #### L 100.0100, L509.8002, L3890.6006, L501.0250, BTS #### [facility] [address] [place], [address] Absolute Neut 9.1 X10 3/uL High 2.0-7.7 [facility] Comment on above: Performed By: #### L 100.0100, L509.8002, L3890.6006, L501.0250, BTS #### [facility] [address] [place], [address] Basophils/100 WBC (Bld) 0.3 % Normal 0-1 [facility] Comment on above: Performed By: #### L 100.0100, L509.8002, L3890.6006, L501.0250, BTS #### [facility] [address] [place], [address] Eosinophils/100 WBC (Bld) 0.8 % Normal 0-5 [facility] Comment on above: Performed By: #### L 100.0100, L509.8002, L3890.6006, L501.0250, BTS #### [facility] [address] [place], [address] Erythrocyte distribution width (RBC) [Ratio] 12.6 % Normal 11.6-14.6 [facility] Comment on above: Performed By: #### L 100.0100, L509.8002, L3890.6006, L501.0250, BTS #### [facility] [address] [place], [address] Hematocrit (Bld) [Volume fraction] 32.8 % Low 37-47 [facility] Comment on above: Performed By: #### L 100.0100, L509.8002, L3890.6006, L501.0250, BTS #### [facility] [address] [place], [address] Hemoglobin (Bld) [Mass/Vol] 11.6 g/dL Low 12.0-15.0 [facility] Comment on above: Performed By: #### L 100.0100, L509.8002, L3890.6006, L501.0250, BTS #### [facility] [address] [place], [address] IG% 0.600 Normal 0.0-0.9 [facility] Comment on above: Result Comment: IG% - Immature Granulocytes (promyelocytes, myelocytes and metamyelocytes) > 1% indicates that a LEFT SHIFT is Present. Performed By: #### L 100.0100, L509.8002, L3890.6006, L501.0250, BTS #### [facility] [address] [place], [address] Lymphocytes/100 WBC (Bld) 9.6 % Low 19-41 [facility] Comment on above: Performed By: #### L 100.0100, L509.8002, L3890.6006, L501.0250, BTS #### [facility] [address] [place], [address] MCH (RBC) [Entitic mass] 31.4 pg Normal 27.0-32.0 [facility] Comment on above: Performed By: #### L 100.0100, L509.8002, L3890.6006, L501.0250, BTS #### [facility] [address] [place], [address] MCHC (RBC) [Mass/Vol] 35.4 g/dL Normal 32-36 [facility] Comment on above: Performed By: #### L 100.0100, L509.8002, L3890.6006, L501.0250, BTS #### [facility] [address] [place], [address] MCV (RBC) [Entitic vol] 88.6 fL Normal 81-99 [facility] Comment on above: Performed By: #### L 100.0100, L509.8002, L3890.6006, L501.0250, BTS #### [facility] [address] [place], [address] Monocytes/100 WBC (Bld) 7.7 % Normal 0-10 [facility] Comment on above: Performed By: #### L 100.0100, L509.8002, L3890.6006, L501.0250, BTS #### [facility] [address] [place], [address] Neutrophils/100 WBC (Bld) 81.0 % High 47-70 [facility] Comment on above: Performed By: #### L 100.0100, L509.8002, L3890.6006, L501.0250, BTS #### [facility] [address] [place], [address] Nucleated RBC (Bld) [#/Vol] 0 10*3/uL Normal 0-5 [facility] Comment on above: Performed By: #### L 100.0100, L509.8002, L3890.6006, L501.0250, BTS #### [facility] [address] [place], [address] Platelet mean volume (Bld) [Entitic vol] 9.1 fL Normal 6.2-12.0 [facility] Comment on above: Performed By: #### L 100.0100, L509.8002, L3890.6006, L501.0250, BTS #### [facility] [address] [place], [address] Platelets (Bld) [#/Vol] 299 10*3/uL Normal 150-450 [facility] Comment on above: Performed By: #### L 100.0100, L509.8002, L3890.6006, L501.0250, BTS #### [facility] [address] [place], [address] RBC (Bld) [#/Vol] 3.70 10*6/uL Low 4.2-5.4 [facility] Comment on above: Performed By: #### L 100.0100, L509.8002, L3890.6006, L501.0250, BTS #### [facility] [address] [place], [address] RDW SD 40.8 fl Normal 35.1-43.9 [facility] Comment on above: Performed By: #### L 100.0100, L509.8002, L3890.6006, L501.0250, BTS #### [facility] [address] [place], [address] WBC (Bld) [#/Vol] 11.3 10*3/uL High 4.4-11.0 [facility] Comment on above: Performed By: #### L 100.0100, L509.8002, L3890.6006, L501.0250, BTS #### [facility] [address] [place], [address] Eosinophil percentageOrdered By: Mechelle Francois on 04-07-2025 Eosinophils/100 WBC (Bld) 0.8 % 0-5 [facility] Erythrocyte distribution wid th ratioOrdered By: Mechelle Francois on 04-07-2025 Erythrocyte distribution width (RBC) [Ratio] 12.6 % 11.6-14.6 [facility] Erythrocyte distribution wid th standard deviationOrdered By: Mechelle Francois on 04-07-2025 Erythrocyte distribution width (RBC) [Ratio] 40.8 fl 35.1-43.9 [facility] Glucose Challenge Gest 1H 50 joaquin 04-07-2025 GLU GEST 50g 1H 158 mg/dL High 70-140 [facility] Comment on above: Performed By: #### L 100.0100, L509.8002, L3890.6006, L501.0250, BTS #### [facility] [address] [facility] [place], [address] Glucose measurement at 2 cornelio rs post-dose gestational glucose tolerance testOrdered By: Mechelle Francois on 04-07-2025 Glucose [Mass/Vol] 158 mg/dL High 70-140 [facility] HIVon 04-07-2025 HIV Non-Reactive Normal Nonreactive [facility] Comment on above: Result Comment: Non- Reactive Reactive Repeatedly reactive samples must be confirmed according to CDC recommended confirmatory algorithms. The subresults for either HIVAG or AHIV can be used as an aid in the selection of the confirmation algorithm for reactive samples. Send out specimens with Reactive results to [facility] for confirmation. Order the HIV antibody detection and differentiation: #[id number] Performed By: #### L 100.0100, L509.8002, L3890.6006, L501.0250, BTS #### [facility] [address] [place], [place], [id number] Hematocrit Auto (Bld) [Volum e fraction]Ordered By: Mechelle Francois on 04-07-2025 Hematocrit (Bld) [Volume fraction] 32.8 % Low 37-47 [facility] Hemoglobin measurementOrdere d By: Mechelle Francois on 04-07-2025 Hemoglobin (Bld) [Mass/Vol] 11.6 g/dL Low 12.0-15.0 [facility] Immature granulocytes/100 WB C Auto (Bld)Ordered By: Mechelle Francois on 04-07-2025 Immature granulocytes/100 WBC (Bld) 0.600 % 0.0-0.9 [facility] Comment on above: IG% - Immature Granu locytes (promyelocytes, myelocytes and metamyelocytes) > 1% indicates that a LEFT SHIFT is Present. Laboratory - Chemistry and C hemistry - challengeOrdered By: Mechelle Francois on 04-07-2025 Glucose Ql (U) Negative [facility] - UrinalysisOrder ed By: Mechelle Francois on 04-07-2025 Protein Ql (U) Negative [facility] MCV (mean corpuscular volume ) determinationOrdered By: Mechelle Francois on 04-07-2025 MCV (RBC) [Entitic vol] 88.6 fL 81-99 [facility] Mean corpuscular hemoglobin (MCH) determinationOrdered By: Mechelle Francois on 04-07-2025 MCH (RBC) [Entitic mass] 31.4 pg 27.0-32.0 [facility] Mean corpuscular hemoglobin concentration (MCHC) determinationOrdered By: Mechelle Francois on 04-07-2025 MCHC (RBC) [Mass/Vol] 35.4 g/dL 32-36 [facility] Mean platelet volume determi nationOrdered By: Mechelle Francois on 04-07-2025 Platelet mean volume (Bld) [Entitic vol] 9.1 fL 6.2-12.0 [facility] Monocyte percentageOrdered B y: Mechelle Francois on 04-07-2025 Monocytes/100 WBC (Bld) 7.7 % 0-10 [facility] Neutrophil percentageOrdered By: Mechelle Francois on 04-07-2025 Neutrophils/100 WBC (Bld) 81.0 % High 47-70 [facility] No Panel InformationOrdered By: Mechelle Francois on 04-07-2025 HIV (1&2) Antibody Non-Reactive Nonreactive [facility] Comment on above: Non-ReactiveReactive Repeatedly reactive samples must be confirmed according to CDC recommended confirmatory algorithms. The subresults for either HIVAG or AHIV can be used as an aid in the selection of the confirmation algorithm for reactive samples.Send out specimens with Reactive results to [facility] for confirmation.Order the HIV antibody detection and differentiation: #[id number] Nucleated red blood cell per centageOrdered By: Mechelle Francois on 04-07-2025 Nucleated RBC/100 WBC (Bld) [Ratio] 0 % 0-5 [facility] [employer] Office Visit Reporton 04-07-2025 [employer] Office Visit Report [facility]'s [address], [address] [place] [address] OFFICE VISIT Date of Service: 04/07/25 MR#: [id number] Acct: [id number] Name: CHERY MCKEON Rep #: [id number] : 2000 Provider: CHANG church Age/Sex: 24/F Location: [facility] [place] Status: Signed Intake Vital Signs 02/09/25 10:58 03/31/25 09:03 04/07/25 12:52 Height 5 ft 5 in 5 ft 5 in 5 ft 5 in Weight: 176 lb 3 oz BMI 29.3 BP 117/80 Intake Visit Reasons: 28 WK OB/GLUCOSE Chief Complaint: 28 Week OB/Glucose Cyanide Pot Hardener Required: No Is patient in pain?: No [...] Negative : Yes PFSH PFSH Surgical History [place] teeth removed S/P cholecystectomy Family History Grandfather Prostate cancer Grandmother Colon cancer CVA (cerebral vascular accident) Grandmother Dementia Father Diabetes Myocardial infarction Skin cancer Mother Heart disease Thyroid disorder Social History adopted: No household members: spouse housing: house current occupational status: employed current occupation: [email or web address] current occupational exposures/hazards: No pets and animals: [...] 1-2 times per week duration: 15-30 minutes/day guy/mu-ism: Zoroastrian seatbelt use: always do you feel safe at home: Yes 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 (more content not included)... Normal [facility] Platelet countOrdered By: Pito Francois on 04-07-2025 Platelets (Bld) [#/Vol] 299 10*3/uL 150-450 [facility] RBC Auto (Bld) [#/Vol]Ordere d By: Mechelle Francois on 04-07-2025 RBC (Bld) [#/Vol] 3.70 10*6/uL Low 4.2-5.4 [facility] Syphilis Antibodieson 2024 Syphilis Abs Non-Reactive Normal Nonreactive [facility] Comment on above: Performed By: #### L 100.0100, L509.8002, L3890.6006, L501.0250, BTS #### [facility] [address] [place], [place], [id number] Type AND Screenon 04-07-2025 Ab SCREEN GEL Negative Normal [facility] Comment on above: Order Comment: PN Performed By: #### L 100.0100, L509.8002, L3890.6006, L501.0250, BTS #### [facility] [address] [place], [place], [address] Urine cultureOrdered By: Dada Francois on 04-07-2025 Bacteria identified Cx Nom (U) Positive Abnormal [facility] White blood cell (WBC) count Ordered By: Mechelle Francois on 04-07-2025 WBC (Bld) [#/Vol] 11.3 10*3/uL High 4.4-11.0 [facility] Urine Cultureon 04-03-2025 [facility] Urine Culture Staphylococcus epidermidis [place] Count 80,000-100,000 Mixed Gram Positive Organisms Mixed Gram Positive Organisms MIXC Mixed contaminants. Submit a new specimen if indicated. Staphylococcus epidermidis: REACTION cefOXitin Susc Islt Doxycycline Islt TAYLOR 4 S Clindamycin.induce d Susc Islt Gentamicin Islt TAYLOR <=0.5 S Linezolid Islt TAYLOR 1 S Nitrofurantoin Islt ATYLOR <=16 S Oxacillin Susc Islt >=4 R Tetracycline Islt TAYLOR >=16 R TMP SMX Islt TAYLOR <=10 S Vancomycin Islt TAYLOR 1 S Normal [facility] Comment on above: Performed By: #### M 100.9718 #### [facility] [address] [place], [address] Laboratory - Chemistry and C hemistry - challengeOrdered By: Mechelle Francois on 03-31-2025 Bilirubin Ql (U) Negative [facility] Glucose Ql (U) Negative [facility] Ketones Ql (U) Negative [facility] pH (U) 5.0 [pH] [facility] Specific gravity (U) [Rel density] 1.025 [facility] Urobilinogen (U) [Mass/Vol] 0.0998941 mg/dL [facility] - Hematology and Cell countsOrdered By: Mechelle Francois on 03-31-2025 Hemoglobin Ql (U) Moderate [facility] - Specimen inform ationOrdered By: Mechelle Francois on 03-31-2025 Clarity (U) Cloudy [facility] Color (U) Yellow [facility] - UrinalysisOrder ed By: Mechelle Francois on 03-31-2025 Nitrite Ql (U) Negative [facility] Protein Ql (U) Trace [facility] No Panel InformationOrdered By: Mechelle Francois on 03-31-2025 Urine Leukocytes Positive [facility] Urine Non-Hemolyzed Blood Trace [facility] [employer] Office Visit Reporton 03-31-2025 [employer] Office Visit Report [facility], [address] [place] [address] OFFICE VISIT Date of Service: 03/31/25 MR#: [id number] Acct: [id number] Name: CHERY MCKEON Rep #: [id number] : 2000 Provider: CHANG church Age/Sex: 24/F Location[place] [facility] [place] Status: Signed Intake Vital Signs 03/11/25 15:18 03/30/25 15:50 03/31/25 09:01 03/31/25 09:03 Height 5 ft 5 in 5 ft 5 in 5 ft 5 in 5 ft 5 in Weight: 179 lb 5 oz BMI 29.8 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 Please send antibiotic to [facility] in [place]. PFSH PFSH Surgical History [place] teeth removed S/P cholecystectomy Family History Grandfather [...] 1-2 times per week duration: 15-30 minutes/day guy/mu-ism: Zoroastrian seatbelt use: always do you feel safe at home: Yes additional social history: : [employer] m[employer] History 1 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 Hx Para [...] Visit Note (more content not included)... Normal [facility] Urine cultureOrdered By: Dada Francois on 03-31-2025 Bacteria identified Cx Nom (U) Staphylococcus epidermidis Abnormal [facility] Bacteria identified Cx Nom (U) Positive Abnormal [facility] Absolute lymphocyte countOrd ered By: Kehinde Anand on 03-11-2025 Lymphocytes Auto (Unsp spec) [#/Vol] 1.33 10*3/uL 0.83-4.51 [facility] Absolute neutrophil countOrd ered By: Kehinde Anand on 03-11-2025 Neutrophils (Bld) [#/Vol] 9.7 10*3/uL High 2.0-7.7 [facility] Anion gap in Serum or Plasma Ordered By: Kehinde Anand on 03-11-2025 Anion gap [Moles/Vol] 13 mmol/L 5-15 [facility] Automated blood erythrocyte countOrdered By: Kehinde Anand on 03-11-2025 RBC (Bld) [#/Vol] 3.68 10*6/uL Low 4.2-5.4 [facility] Comment on above: Performed By: #### L 500.4050, L100.0100, L501.9520 #### [facility] [place], [address] Automated blood hematocrit ( percentage)Ordered By: Kehinde Anand on 03-11-2025 Hematocrit (Bld) [Volume fraction] 33.1 % Low 37-47 [facility] Comment on above: Performed By: #### L 500.4050, L100.0100, L501.9520 #### [facility] [address] [place], [address] Automated lymphocyte count a s percentage of total leukocytesOrdered By: Kehinde Vlad on 03-11-2025 Lymphocytes/100 WBC Auto (Unsp spec) 10.9 % Low 19-41 [facility] BUN/creatinine ratioOrdered By: Kehinde Vlad on 03-11-2025 Urea nitrogen/Creatinine [Mass ratio] 11.9 mg/mg 10-20 [facility] Basophil percentageOrdered B y: Kehinde Anand on 03-11-2025 Basophils/100 WBC (Bld) 0.2 % Normal 0-1 [facility] Comment on above: Performed By: #### L 500.4050, L100.0100, L5.9520 #### [facility] [address] [place], [address] Bilirubin, totalOrdered By: Kehinde Anand on 03-11-2025 Bilirubin [Mass/Vol] 0.20 mg/dL 0.00-1.30 [facility] CBC W/Diff, Automatedon 02-20 Absolute Lymph 1.33 X10 3/uL Normal 0.83-4.51 [facility] Comment on above: Performed By: #### L 500.4050, L100.0100, L501.9520 #### [facility] [address] [place], [address] Absolute Neut 9.7 X10 3/uL High 2.0-7.7 [facility] Comment on above: Performed By: #### L 500.4050, L100.0100, L501.9520 #### [facility] [address] [place], [address] IG% 0.800 Normal 0.0-0.9 [facility] Comment on above: Result Comment: IG% - Immature Granulocytes (promyelocytes, myelocytes and metamyelocytes) > 1% indicates that a LEFT SHIFT is Present. Performed By: #### L 500.4050, L100.0100, L501.9520 #### [facility] [address] [place], [address] Lymphocytes/100 WBC (Bld) 10.9 % Low 19-41 [facility] Comment on above: Performed By: #### L 500.4050, L100.0100, L501.9520 #### [facility] [address] [place], [address] Nucleated RBC (Bld) [#/Vol] 0 10*3/uL Normal 0-5 [facility] Comment on above: Performed By: #### L 500.4050, L100.0100, L501.9520 #### [facility] [address] [place], [address] RDW SD 43.5 fl Normal 35.1-43.9 [facility] Comment on above: Performed By: #### L 500.4050, L100.0100, L501.9520 #### [facility] [address] [place], [address] Carbon dioxide, total [Moles /volume] in Central venous bloodOrdered By: Kehinde Anand on 03-11-2025 CO2 [Moles/Vol] 20.7 mmol/L Low 21.0-32.0 [facility] Chloride assayOrdered By: Jose Luis Anand on 03-11-2025 Chloride [Moles/Vol] 105 mmol/L 98-108 [facility] Comprehensive Metabolic Prof ilon 03-11-2025 Albumin [Mass/Vol] 3.8 g/dL Normal 3.5-5.0 [facility] Comment on above: Performed By: #### L 500.4050, L100.0100, L501.9520 #### [facility] [address] [place], [address] Albumin/Globulin [Mass ratio] 1.6 {ratio} Normal 0.9-2.4 [facility] Comment on above: Performed By: #### L 500.4050, L100.0100, L501.9520 #### [facility] [address] [place], [address] ALK PHOS 65 U/L Normal 35-104 [facility] Comment on above: Performed By: #### L 500.4050, L100.0100, L501.9520 #### [facility] [address] [place], [address] ALT [Catalytic activity/Vol] 9 U/L Normal <=34 [facility] Comment on above: Performed By: #### L 500.4050, L100.0100, L501.9520 #### [facility] [address] [place], [address] AST [Catalytic activity/Vol] 14 U/L Normal <=31 [facility] Comment on above: Performed By: #### L 500.4050, L100.0100, L501.9520 #### [facility] [address] [place], [address] Bilirubin [Mass/Vol] 0.20 mg/dL Normal 0.00-1.30 [facility] Comment on above: Performed By: #### L 500.4050, L100.0100, L501.9520 #### [facility] [address] [place], [address] BUN/CRE 11.9 RATIO Normal 10-20 [facility] Comment on above: Performed By: #### L 500.4050, L100.0100, L501.9520 #### [facility] [address] [place], [address] Calcium [Mass/Vol] 9.2 mg/dL Normal 7.6-11.0 [facility] Comment on above: Performed By: #### L 500.4050, L100.0100, L501.9520 #### [facility] [address] [place], [address] Chloride [Moles/Vol] 105 mmol/L Normal 98-108 [facility] Comment on above: Performed By: #### L 500.4050, L100.0100, L501.9520 #### [facility] [address] [place], [address] CO2 [Moles/Vol] 20.7 mmol/L Low 21.0-32.0 [facility] Comment on above: Performed By: #### L 500.4050, L100.0100, L501.9520 #### [facility] [address] [place], [address] Creatinine [Mass/Vol] 0.45 mg/dL Low 0.70-1.20 [facility] Comment on above: Performed By: #### L 500.4050, L100.0100, L501.9520 #### [facility] [address] [place], [address] GAP 13 Normal 5-15 [facility] Comment on above: Performed By: #### L 500.4050, L100.0100, L501.9520 #### [facility] [address] [place], [address] GFR/1.73 sq M.predicted among non-blacks MDRD (S/P/Bld) [Vol rate/Area] 138 mL/min/{1.73_m2} Normal >60 [facility] Comment on above: Result Comment: mL/m in/1.73m2 CKD-EPI Creatinine Equation (2020) Performed By: #### L 500.4050, L100.0100, L501.9520 #### [facility] [address] [place], [address] Globulin (S) [Mass/Vol] 2.4 g/dL Normal 2.2-4.2 [facility] Comment on above: Performed By: #### L 500.4050, L100.0100, L501.9520 #### [facility] [address] [place], [address] Glucose [Mass/Vol] 103 mg/dL High 70-99 [facility] Comment on above: Performed By: #### L 500.4050, L100.0100, L501.9520 #### [facility] [address] [place], [address] Potassium [Moles/Vol] 4.5 mmol/L Normal 3.3-5.1 [facility] Comment on above: Performed By: #### L 500.4050, L100.0100, L501.9520 #### [facility] [address] [place], [address] Sodium [Moles/Vol] 138 mmol/L Normal 133-145 [facility] Comment on above: Performed By: #### L 500.4050, L100.0100, L501.9520 #### [facility] [address] [place], [address] T PROT 6.2 g/dL Normal 5.9-8.4 [facility] Comment on above: Performed By: #### L 500.4050, L100.0100, L501.9520 #### [facility] [address] [place], [address] Urea nitrogen [Mass/Vol] 5 mg/dL Normal 4-19 [facility] Comment on above: Performed By: #### L 500.4050, L100.0100, L501.9520 #### [facility] [address] [place], [address] Eosinophil percentageOrdered By: Kehinde Anand on 03-11-2025 Eosinophils/100 WBC (Bld) 0.7 % Normal 0-5 [facility] Comment on above: Performed By: #### L 500.4050, L100.0100, L501.9520 #### [facility] [address] [place], [address] Erythrocyte distribution wid th ratioOrdered By: Kehinde Anand on 03-11-2025 Erythrocyte distribution width (RBC) [Ratio] 13.2 % Normal 11.6-14.6 [facility] Comment on above: Performed By: #### L 500.4050, L100.0100, L501.9520 #### [facility] [address] [place], [address] Erythrocyte distribution wid th standard deviationOrdered By: Kehinde Anand on 03-11-2025 Erythrocyte distribution width (RBC) [Ratio] 43.5 fl 35.1-43.9 [facility] Glomerular filtration rate ( GFR) estimation/1.73 sq m using serum, plasma, or whole bOrdered By: Kehinde Anand on 03-11-2025 GFR/1.73 sq M.predicted among non-blacks MDRD (S/P/Bld) [Vol rate/Area] 138 mL/min/{1.73_m2} >60 [facility] Comment on above: mL/min/1.73m2 CKD-EP I Creatinine Equation (2020) Hemoglobin measurementOrdere d By: Kehinde Anand on 03-11-2025 Hemoglobin (Bld) [Mass/Vol] 11.6 g/dL Low 12.0-15.0 [facility] Comment on above: Performed By: #### L 500.4050, L100.0100, L501.9520 #### [facility] [address] [place], [address] Immature granulocytes/100 WB C Auto (Bld)Ordered By: Kehinde Anand on 03-11-2025 Immature granulocytes/100 WBC (Bld) 0.800 % 0.0-0.9 [facility] Comment on above: IG% - Immature Granu locytes (promyelocytes, myelocytes and metamyelocytes) > 1% indicates that a LEFT SHIFT is Present. Laboratory - Chemistry and C hemistry - challengeOrdered By: Kehinde Anand on 03-11-2025 AST [Catalytic activity/Vol] 14 U/L <32 [facility] Glucose Ql (U) Negative [facility] - UrinalysisOrder ed By: Kehinde Anand on 03-11-2025 Protein Ql (U) Negative [facility] MCV (mean corpuscular volume ) determinationOrdered By: Kehinde Anand on 03-11-2025 MCV (RBC) [Entitic vol] 89.9 fL Normal 81-99 [facility] Comment on above: Performed By: #### L 500.4050, L100.0100, L501.9520 #### [facility] [address] [place], [address] Mean corpuscular hemoglobin (MCH) determinationOrdered By: Kehinde Anand on 03-11-2025 MCH (RBC) [Entitic mass] 31.5 pg Normal 27.0-32.0 [facility] Comment on above: Performed By: #### L 500.4050, L100.0100, L501.9520 #### [facility] [address] [place], [address] Mean corpuscular hemoglobin concentration (MCHC) determinationOrdered By: Kehinde Anand on 03-11-2025 MCHC (RBC) [Mass/Vol] 35.0 g/dL Normal 32-36 [facility] Comment on above: Performed By: #### L 500.4050, L100.0100, L501.9520 #### [facility] [address] [place], [address] Mean platelet volume determi nationOrdered By: Kehinde Anand on 03-11-2025 Platelet mean volume (Bld) [Entitic vol] 9.3 fL Normal 6.2-12.0 [facility] Comment on above: Performed By: #### L 500.4050, L100.0100, L501.9520 #### [facility] [address] [place], [address] Monocyte percentageOrdered B y: Kehinde Anand on 03-11-2025 Monocytes/100 WBC (Bld) 8.1 % Normal 0-10 [facility] Comment on above: Performed By: #### L 500.4050, L100.0100, L501.9520 #### [facility] [address] [place], [address] Neutrophil percentageOrdered By: Kehinde Anand on 03-11-2025 Neutrophils/100 WBC (Bld) 79.3 % High 47-70 [facility] Comment on above: Performed By: #### L 500.4050, L100.0100, L501.9520 #### [facility] [address] [place], [address] Nucleated red blood cell per centageOrdered By: Kehinde Anand on 03-11-2025 Nucleated RBC/100 WBC (Bld) [Ratio] 0 % 0-5 [facility] [employer] Office Visit Reporton 03-11-2025 [employer] Office Visit Report [facility]'s [address], [address] [place] [address] OFFICE VISIT Date of Service: 03/11/25 MR#: [id number] Acct: [id number] Name: CHERY MCKEON Rep #: [id number] : 2000 Provider: GISELA Franks ams Age/Sex: 24/F Location: [facility] [place] Status: Signed Intake Vital Signs 01/15/25 14:30 03/03/25 18:25 03/11/25 15:12 03/11/25 15:18 Height 5 ft 5 in 5 ft 5 in 5 ft 5 in 5 ft 5 in Weight: 175 lb 3 oz BMI 29.1 BP 135/86 H Intake Visit Reasons: 24wk ob Chief Complaint: 24wk OB Cyanide Pot Hardener Required: No Is patient in pain?: No [...] 09/16/24 : No PFSH PFSH Surgical History [place] teeth removed S/P cholecystectomy Family History Grandfather Prostate cancer Grandmother Colon cancer CVA (cerebral vascular accident) Grandmother Dementia Father Diabetes Myocardial infarction Skin cancer Mother Heart disease Thyroid disorder Social History adopted: No household members: spouse housing: house current occupational status: employed current occupation: [employer] current occupational exposures/hazards: No pets and animals: [...] 1-2 times per week duration: 15-30 minutes/day guy/mu-ism: Zoroastrian seatbelt use: always do you feel safe at home: Yes additional social history: : [employer] m[employer] History 1 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 Hx Para [...] fluids ord (more content not included)... Normal [facility] Platelet countOrdered By: Jose Luis Anand on 03-11-2025 Platelets (Bld) [#/Vol] 298 10*3/uL Normal 150-450 [facility] Comment on above: Performed By: #### L 500.4050, L100.0100, L501.9520 #### [facility] [address] [place], [address] Potassium measurement (mass/ volume)Ordered By: Kehinde Anand on 03-11-2025 Potassium (Unsp spec) [Mass/Vol] 4.5 mmol/L 3.3-5.1 [facility] Serum creatinine measurement (mass/volume)Ordered By: Kehinde Anand on 03-11-2025 Creatinine [Mass/Vol] 0.45 mg/dL Low 0.70-1.20 [facility] Serum globulin measurementOr dered By: Kehinde Anand on 03-11-2025 Globulin (S) [Mass/Vol] 2.4 g/dL 2.2-4.2 [facility] Serum glucose measurement (m ass/volume)Ordered By: Kehinde Anand on 03-11-2025 Glucose [Mass/Vol] 103 mg/dL High 70-99 [facility] Serum or plasma alanine otoole otransferase (ALT) measurementOrdered By: Kehinde Anand on 03-11-2025 ALT [Catalytic activity/Vol] 9 U/L <35 [facility] Serum or plasma albumin jennifer urement (mass/volume)Ordered By: Kehinde Anand on 03-11-2025 Albumin [Mass/Vol] 3.8 g/dL 3.5-5.0 [facility] Serum or plasma albumin/glob ulin mass ratioOrdered By: Kehinde Anand on 03-11-2025 Albumin/Globulin [Mass ratio] 1.6 {ratio} 0.9-2.4 [facility] Serum or plasma alkaline mari sphatase measurementOrdered By: Kehinde Anand on 03-11-2025 ALP [Catalytic activity/Vol] 65 U/L 35-104 [facility] Serum or plasma calcium jennifer urement (mass/volume)Ordered By: Kehinde Anand on 03-11-2025 Calcium [Mass/Vol] 9.2 mg/dL 7.6-11.0 [facility] Serum or plasma urea nitroge n measurement (mass/volume)Ordered By: Kehinde Anand on 03-11-2025 Urea nitrogen [Mass/Vol] 5 mg/dL 4-19 [facility] Sodium levelOrdered By: Jackie Anand on 03-11-2025 Sodium [Moles/Vol] 138 mmol/L 133-145 [facility] TSH DL <= 0.005 mIU/L QnOrde red By: Kehinde Anand on 03-11-2025 TSH Qn 1.460 uIU/mL 0.300-4.200 [facility] Thyroid Stim Hormone (TSH)on 03-11-2025 TSH 1.460 uIU/mL Normal 0.300-4.200 [facility] Comment on above: Performed By: #### M 945.7398 #### [facility] [address] [place], [address] Total proteinOrdered By: Ashu Anand on 03-11-2025 Protein [Mass/Vol] 6.2 g/dL 5.9-8.4 [facility] White blood cell (WBC) count Ordered By: Kehinde Anand on 03-11-2025 WBC (Bld) [#/Vol] 12.2 10*3/uL High 4.4-11.0 [facility] Comment on above: Performed By: #### L 500.4050, L100.0100, L501.9520 #### [facility] [address] [place], [address] Urine Cultureon 03-05-2025 URC Mixed Gram Positive Organisms [place] Count >100,000 MIXC Mixed contaminants. Submit a new specimen if indicated. Normal [facility] Comment on above: Performed By: #### M 100.2200 #### [facility] [address] [place], [address] Bilirubin Test strip Ql (U)O rdered By: Rita Damon on 03-03-2025 Bilirubin Ql (U) Negative Negative [facility] Ketones Test strip Ql (U)Ord ered By: Rita Damon on 03-03-2025 Ketones Ql (U) Negative Negative [facility] Nitrite Test strip Ql (U)Ord ered By: Rita Damon on 03-03-2025 Nitrite Ql (U) Negative Negative [facility] OB Triage Physician Noteon 0 03-03-2025 OB Triage Physician Note [facility] Medical Records Department [address] [place] [address] OB Triage Physician Note 03/03/25 2349 MR#: [id number] Acct: [id number] Name: CHERY MCKEON Rep #: [id number] : 2000 24 From: Rita Rivas DO PCP: PATRICIA Mckoy Status:DEP CLI Y Location: [facility]OUT HPI - General General Date of Admission: 03/03/25 HPI Narrative CHERY MCKEON, is a 24 y/o @ 22 weeks 6 days who presents to [facility] with abdominal pain. She denies contractions that [...] Mother Heart disease Thyroid disorder Surgical History [place] teeth removed S/P cholecystectomy Social History adopted: No household members: spouse housing: house current occupational status: employed current occupation: [employer] current occupational exposures/hazards: No pets and animals: [...] 1-2 times per week duration: 15-30 minutes/day guy/mu-ism: Zoroastrian seatbelt use: always do you feel safe at home: Yes additional social history: : [employer] m[employer] History 1 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 Hx Para [...] -???-???-???- N (more content not included)... Normal [facility] Protein Test strip Ql (U)Ord ered By: Rita Damon on 03-03-2025 Protein Ql (U) 30 mg/dl High Negative [facility] Urinalysis, Routine (Dipstic k)on 03-03-2025 BILIRUBIN URINE Negative Normal Negative [facility] Comment on above: Order Comment: DIOGENES VALENTINO TO SPECIFY Performed By: #### M 100.2200 #### [facility] [address] [place], [place], [id number] Clarity (U) Cloudy Normal Clear [facility] Comment on above: Order Comment: DIOGENES VALENTINO TO SPECIFY Performed By: #### M 100.2200 #### [facility] [address] [place], [place], [address] Color (U) Yellow Normal Yellow [facility] Comment on above: Order Comment: DIOGENES VALENTINO TO SPECIFY Performed By: #### M 100.2200 #### [facility] [address] [place], [address] GLUCOSE, UR Normal Normal Normal [facility] Comment on above: Order Comment: DIOGENES CTOR TO SPECIFY Performed By: #### M 100.2200 #### [facility] [address] [place], [address] KETONE UR Negative Normal Negative [facility] Comment on above: Order Comment: DIOGENES CTOR TO SPECIFY Performed By: #### M 100.2200 #### [facility] [address] [place], [address] LEUK ESTERASE 500 /ul Abnormal Negative [facility] Comment on above: Order Comment: DIOGENES CTOR TO SPECIFY Performed By: #### M 100.0 #### [facility] [address] [place], [address] Nitrite Ql (U) Negative Normal Negative [facility] Comment on above: Order Comment: DIOGENES CTOR TO SPECIFY Performed By: #### M 100.0 #### [facility] [address] [place], [address] OCCULT BLOOD-UR 250 /ul Abnormal Negative [facility] Comment on above: Order Comment: DIOGENES CTOR TO SPECIFY Performed By: #### M 100.2200 #### [facility] [address] [place], [address] pH UR 7.0 Normal 5.0 - 8.0 [facility] Comment on above: Order Comment: DIOGENES CTOR TO SPECIFY Performed By: #### M 100.2200 #### [facility] [address] [place], [address] PROT DIPSTX 30 mg/dl Abnormal Negative [facility] Comment on above: Order Comment: DIOGENES CTOR TO SPECIFY Performed By: #### M 100.2200 #### [facility] [address] [place], [address] SP.GR. DIPSTX 1.010 Normal 1.002-1.030 [facility] Comment on above: Order Comment: DIOGENES MICHAELOR TO SPECIFY Performed By: #### M 100.2200 #### [facility] [address] [place], [place], [id number] UROBILI Normal Normal Normal [facility] Comment on above: Order Comment: DIOGENES MICHAELOR TO SPECIFY Performed By: #### M 100.2200 #### [facility] [address] [place], [place], [address] Urine clarityOrdered By: Rozina Damon on 03-03-2025 Clarity (U) Cloudy Clear [facility] Urine color determinationOrd ered By: Rita Damon on 03-03-2025 Color (U) Yellow Yellow [facility] Urine cultureOrdered By: Rozina Damon on 03-03-2025 Bacteria identified Cx Nom (U) Positive Abnormal [facility] Urine glucose detectionOrder ed By: Rita Damon on 03-03-2025 Glucose Ql (U) Normal mg/dl Normal [facility] Urine leukocyte esterase det ection by dipstickOrdered By: Rita Damon on 03-03-2025 Leukocyte esterase Test strip Ql (U) 500 /ul High Negative [facility] Urine pHOrdered By: Rita Damon on 03-03-2025 pH (U) 7.0 [pH] 5.0 - 8.0 [facility] Urine specific gravity measu rementOrdered By: Rita Damon on 03-03-2025 Specific gravity (U) [Rel density] 1.010 1.002-1.030 [facility] Urine urobilinogen measureme ntOrdered By: Rita Damon on 03-03-2025 Urobilinogen Ql (U) Normal mg/dl Normal [facility] NATERAon 02-18-2025 NATURA SEE SCANNED REPORT Normal [facility] Comment on above: Performed By: #### M 100.2200 #### [facility] [address] [place], [place], [address] Laboratory - Chemistry and C hemistry - challengeOrdered By: Maia Gan on 02-09-2025 Glucose Ql (U) Negative [facility] - UrinalysisOrder ed By: Maia Nickjuwan on 02-09-2025 Protein Ql (U) Negative [facility] [employer] Inserter Office Visit Reporton 02-09-2025 [employer] [facility]ter Office Visit Report [facility] [address], [address] [place] [address] OFFICE VISIT Date of Service: 02/09/25 MR#: [id number] Acct: [id number] Name: CHERY MCKEON Rep #: [id number] : 2000 Provider: Dr. Maia dubois MD Age/Sex: 24/F Location: [facility] Status: Signed Intake Vital Signs 12/21/24 15:20 01/15/25 14:30 02/09/25 10:58 Height 5 ft 5 in 5 ft 5 in 5 ft 5 in Weight: 173 lb 2 oz BMI 28.8 BP 129/83 H Intake Visit Reasons: 22 wk ob Cyanide Pot Hardener Required: No Is patient in pain?: No [...] Rx promethazine 25 mg rectal 25 mg ME Q4-6H PRN nausea and 01/2002/09/25 Rx suppository vomiting #12 ea Last Menstrual Period: 09/16/24 Zika: Zika virus screening: Negative : No PFSH PFSH Surgical History [place] teeth removed S/P cholecystectomy Family History Grandfather Prostate cancer Grandmother Colon cancer CVA (cerebral vascular accident) Grandmother Dementia Father Diabetes Myocardial infarction Skin cancer Mother Heart disease Thyroid disorder Social History adopted: No household members: spouse housing: house current occupational status: employed current occupation: [employer] current occupational exposures/hazards: No pets and animals: [...] 1-2 times per week duration: 15-30 minutes/day guy/mu-ism: Zoroastrian seatbelt use: always do you feel safe at home: Yes 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 (more content not included)... Normal [facility] - Chemistry and C hemistry - challengeOrdered By: Rita Damon on 01-15-2025 Glucose Ql (U) Negative [facility] - UrinalysisOrder ed By: Rita Damon on 01-15-2025 Protein Ql (U) Negative [facility] Carbon Rod Inserter Office Visit Reporton 01-15-2025 Carbon Rod Inserter Office Visit Report [facility] [address], [address] [place] [address] OFFICE VISIT Date of Service: 01/15/25 MR#: [id number] Acct: [id number] Name: CHERY MCKEON Rep #: [id number] : 2000 Provider: Dr. Rita Warner DO Age/Sex: 24/F Location: [facility] Status: Signed Intake Vital Signs 11/19/24 08:43 01/06/25 12:36 01/15/25 14:30 Height 5 ft 5 in 5 ft 5 in 5 ft 5 in Weight: 171 lb 2 oz BMI 28.5 BP 124/85 H Intake Visit Reasons: 18wk ob Cyanide Pot Hardener Required: No Is patient in pain?: No [...] tabs promethazine 25 mg rectal 25 mg ME Q4-6H PRN nausea and 09/1501/15/25 Rx suppository vomiting #12 ea Last Menstrual Period: 09/16/24 Zika: Zika virus screening: Negative : No PFSH PFSH Surgical History [place] teeth removed S/P cholecystectomy Family History Grandfather Prostate cancer Grandmother Colon cancer CVA (cerebral vascular accident) Grandmother Dementia Father Diabetes Myocardial infarction Skin cancer Mother Heart disease Thyroid disorder Social History adopted: No household members: spouse housing: house current occupational status: employed current occupation: [employer] current occupational exposures/hazards: No pets and animals: [...] 1-2 times per week duration: 15-30 minutes/day guy/mu-ism: Zoroastrian seatbelt use: always do you feel safe at home: Yes 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 Normal [facility] - Chemistry and C hemistry - challengeOrdered By: Kehinde Anand on 12-21-2024 Glucose Ql (U) Negative [facility] - UrinalysisOrder ed By: Kehinde Anand on 12-21-2024 Protein Ql (U) Negative [facility] Carbon Rod Inserter Office Visit Reporton 12-21-2024 Carbon Rod Inserter Office Visit Report [facility] [address], [address] [place] [address] OFFICE VISIT Date of Service: 12/21/24 MR#: [id number] Acct: [id number] Name: CHERY MCKEON Rep #: [id number] : 2000 Provider: GISELA Franks ams Age/Sex: 24/F Location: [facility] Status: Signed Intake Vital Signs 11/05/15 16:09 11/19/24 08:43 12/21/24 15:20 Height 5 ft 5 in 5 ft 5 in 5 ft 5 in Weight: 170 lb 6 oz 165 lb BMI 28.3 27.4 BP 130/86 H 126/86 H Intake Visit Reasons: 12wk ob Chief Complaint: 12wk OB Cyanide Pot Hardener Required: No Is patient in pain?: No [...] tabs promethazine 25 mg rectal 25 mg ME Q4-6H PRN nausea and 09/1512/21/24 Rx suppository vomiting #12 ea Last Menstrual Period: 09/16/24 PFSH PFSH Surgical History [place] teeth removed S/P cholecystectomy Family History Grandfather Prostate cancer Grandmother Colon cancer CVA (cerebral vascular accident) Grandmother Dementia Father Diabetes Myocardial infarction Skin cancer Mother Heart disease Thyroid disorder Social History adopted: No household members: spouse housing: house current occupational status: employed current occupation: [employer] current occupational exposures/hazards: No pets and animals: [...] 1-2 times per week duration: 15-30 minutes/day guy/mu-ism: Zoroastrian seatbelt use: always do you feel safe at home: Yes 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 Normal [facility] TSH DL <= 0.005 mIU/L QnOrde red By: Kehinde Anand on 12-21-2024 TSH Qn 0.814 uIU/mL 0.300-4.200 [facility] Thyroid Stim Hormone (TSH)on 12-21-2024 TSH 0.814 uIU/mL Normal 0.300-4.200 [facility] Comment on above: Performed By: #### M 100.2200 #### [facility] [address] [place], [place], [id number] [id number] 11-26-2024 [facility] Mis. COMMENT Normal . [facility] Comment on above: Order Comment: [id number] R AB SERUM FZ Result Comment: Test Ordered: 600002 TSH Receptor Antibody (TBII) TSH Receptor Antibody (TBII) <0.3 U/L Reference Range: . Reference Range: Antibody Titer: <1.0 U/L = Negative 1.1 - 1.5 U/L = Equivocal >1.5 U/L = Positive Performed at: [facility] [address] [place] [id number] Marine Painter: Jeronimo Holden MD, Phone: [phone] Performed at: [facility] [id number] Marine Painter: Sandeep Bae PhD, Phone: [phone] Performed By: #### M 100.2200 #### [facility] [address] [place], [address] Chlamydia/GC ANIRUDH aptimaon CHLAMY,NUC ACID Negative Normal Negative [facility] Comment on above: Performed By: #### M 100.2200 #### [facility] [address] [place], [place], [address] GC BY NUC ACID Negative Normal Negative [facility] Comment on above: Result Comment: Perf ormed at: =G - [facility] [address] [place], [place] [id number] Marine Painter: Alina Arreola MD, Phone: [phone] Performed By: #### M 100.2200 #### [facility] [address] [place], [place], [id number] Urine Cultureon 11-21-2024 URC #1, 2 Below infection level. GPC Poss Enterococcus sp [place] Count <1000 Mixed Gram Positive Organisms Mixed Gram Positive Organisms MIXC Mixed contaminants. Submit a new specimen if indicated. Normal [facility] Comment on above: Performed By: #### M 100.2200 #### [facility] [address] [place], [place], [address] Absolute lymphocyte countOrd ered By: Mechelle Francois on 11-19-2024 Lymphocytes Auto (Unsp spec) [#/Vol] 1.42 10*3/uL 0.83-4.51 [facility] Absolute neutrophil countOrd ered By: Mechellepaxton Francois on 11-19-2024 Neutrophils (Bld) [#/Vol] 5.9 10*3/uL 2.0-7.7 [facility] Automated lymphocyte count a s percentage of total leukocytesOrdered By: Mechelle Francois on 11-19-2024 Lymphocytes/100 WBC Auto (Unsp spec) 17.2 % Low 19-41 [facility] Basophil percentageOrdered B y: Mechelle Francios on 11-19-2024 Basophils/100 WBC (Bld) 0.4 % 0-1 [facility] CBC W/Diff, Automatedon Absolute Lymph 1.42 X10 3/uL Normal 0.83-4.51 [facility] Comment on above: Performed By: #### M 100.2200 #### [facility] [address] [place], [address] Absolute Neut 5.9 X10 3/uL Normal 2.0-7.7 [facility] Comment on above: Performed By: #### M 100.2200 #### [facility] [address] [place], [address] Basophils/100 WBC (Bld) 0.4 % Normal 0-1 [facility] Comment on above: Performed By: #### M 100.2200 #### [facility] [address] [place], [address] Eosinophils/100 WBC (Bld) 0.7 % Normal 0-5 [facility] Comment on above: Performed By: #### M 100.2200 #### [facility] [address] [place], [address] Erythrocyte distribution width (RBC) [Ratio] 12.2 % Normal 11.6-14.6 [facility] Comment on above: Performed By: #### M 100.2200 #### [facility] [address] [place], [address] Hematocrit (Bld) [Volume fraction] 38.9 % Normal 37-47 [facility] Comment on above: Performed By: #### M 100.2200 #### [facility] [address] [place], [address] Hemoglobin (Bld) [Mass/Vol] 13.7 g/dL Normal 12.0-15.0 [facility] Comment on above: Performed By: #### M 100.2200 #### [facility] [address] [place], [address] IG% 0.400 Normal 0.0-0.9 [facility] Comment on above: Result Comment: IG% - Immature Granulocytes (promyelocytes, myelocytes and metamyelocytes) > 1% indicates that a LEFT SHIFT is Present. Performed By: #### M 100.2200 #### [facility] [address] [place], [address] Lymphocytes/100 WBC (Bld) 17.2 % Low 19-41 [facility] Comment on above: Performed By: #### M 100.2200 #### [facility] [address] [place], [address] MCH (RBC) [Entitic mass] 30.5 pg Normal 27.0-32.0 [facility] Comment on above: Performed By: #### M 100.2200 #### [facility] [address] [place], [address] MCHC (RBC) [Mass/Vol] 35.2 g/dL Normal 32-36 [facility] Comment on above: Performed By: #### M 100.2200 #### [facility] [address] [place], [address] MCV (RBC) [Entitic vol] 86.6 fL Normal 81-99 [facility] Comment on above: Performed By: #### M 100.2200 #### [facility] [address] [place], [address] Monocytes/100 WBC (Bld) 10.0 % Normal 0-10 [facility] Comment on above: Performed By: #### M 100.2200 #### [facility] [address] [place], [address] Neutrophils/100 WBC (Bld) 71.3 % High 47-70 [facility] Comment on above: Performed By: #### M 100.2200 #### [facility] [address] [place], [address] Nucleated RBC (Bld) [#/Vol] 0 10*3/uL Normal 0-5 [facility] Comment on above: Performed By: #### M 100.2200 #### [facility] [address] [place], [address] Platelet mean volume (Bld) [Entitic vol] 9.4 fL Normal 6.2-12.0 [facility] Comment on above: Performed By: #### M 100.2200 #### [facility] [address] [place], [address] Platelets (Bld) [#/Vol] 355 10*3/uL Normal 150-450 [facility] Comment on above: Performed By: #### M 100.2200 #### [facility] [address] [place], [address] RBC (Bld) [#/Vol] 4.49 10*6/uL Normal 4.2-5.4 [facility] Comment on above: Performed By: #### M 100.2200 #### [facility] [address] [place], [address] RDW SD 38.7 fl Normal 35.1-43.9 [facility] Comment on above: Performed By: #### M 100.2200 #### [facility] [address] [place], [address] WBC (Bld) [#/Vol] 8.3 10*3/uL Normal 4.4-11.0 [facility] Comment on above: Performed By: #### M 100.2200 #### [facility] [address] [place], [address] Chlamydia trachomatis rRNA d etection by probe and target amplification methodOrdered By: Mechelle Francois on 11-19-2024 C. trachomatis rRNA ANIRUDH+probe Ql (Unsp spec) Negative Negative [facility] Eosinophil percentageOrdered By: Mechelle Francois on 11-19-2024 Eosinophils/100 WBC (Bld) 0.7 % 0-5 [facility] Erythrocyte distribution wid th ratioOrdered By: Mechelle Francois on 11-19-2024 Erythrocyte distribution width (RBC) [Ratio] 12.2 % 11.6-14.6 [facility] Erythrocyte distribution wid th standard deviationOrdered By: Mechelle Francois on 11-19-2024 Erythrocyte distribution width (RBC) [Ratio] 38.7 fl 35.1-43.9 [facility] HIVon 11-19-2024 HIV Non-Reactive Normal Nonreactive [facility] Comment on above: Result Comment: Non- Reactive Reactive Repeatedly reactive samples must be confirmed according to CDC recommended confirmatory algorithms. The subresults for either HIVAG or AHIV can be used as an aid in the selection of the confirmation algorithm for reactive samples. Send out specimens with Reactive results to [facility] for confirmation. Order the HIV antibody detection and differentiation: [id number] Performed By: #### M 100.2200 #### [facility] [address] [place], [place], [address] Hematocrit Auto (Bld) [Volum e fraction]Ordered By: Mechelle Diegos on 11-19-2024 Hematocrit (Bld) [Volume fraction] 38.9 % 37-47 [facility] Hemoglobin measurementOrdere d By: Mechelle Francois on 11-19-2024 Hemoglobin (Bld) [Mass/Vol] 13.7 g/dL 12.0-15.0 [facility] Hepatitis C Antibodyon 11-19 Hepatitis C Ab Non-Reactive Normal Nonreactive [facility] Comment on above: Result Comment: Reac tive: Presumptive evidence of antibodies to HCV. Follow CDC recommendations for supplemental testing. Non-Reactive: Antibodies to HCV were not detected; does not exclude the possibility of exposure to HCV Reactive Results are presumptive evidence of antibodies to HCV. Follow CDC recommendations for supplemental testing. Order confirmation testing: HCV Quant by PCR testing - HCVPCR [id number] Non Reactive: < 0.8 Equivocal: >/= 0.8 to < 1.0 Reactive: >/= 1.0 The CDC requires that a reactive/equivocal HCV antibody result be sent out for confirmation. HCV Quant by PCR testing. Performed By: #### M 100.2200 #### [facility] [address] [place], [place], [id number] Immature granulocytes/100 WB C Auto (Bld)Ordered By: Mechelle Francois on 11-19-2024 Immature granulocytes/100 WBC (Bld) 0.400 % 0.0-0.9 [facility] Comment on above: IG% - Immature Granu locytes (promyelocytes, myelocytes and metamyelocytes) > 1% indicates that a LEFT SHIFT is Present. [id number] 11-19-2024 HEP B Surf Ag Non-Reactive Normal Nonreactive [facility] Comment on above: Result Comment: Reac tive: Presumptive evidence of HBV. Repeatedly reactive samples must be confirmed using a neutralization test ([employer] HBsAg Confirmatory Test) Non-Reactive: HBsAg not detected; does not exclude the possibility of exposure to HBV Performed By: #### M 100.2200 #### [facility] [address] [place], [place], [id number] L509.4006on 11-19-2024 Rubella IgG REAC Normal Nonreactive [facility] Comment on above: Result Comment: Anti body Result: Interpretation Non-Reactive: Non-Immune Reactive: Immune The following results were obtained with the [employer] Rubella IgG assay. Results from assays of other manufacturers cannot be used interchangeably. Performed By: #### M 100.2200 #### [facility] [address] [place], [place], [id number] Laboratory - Microbiology an d Antimicrobial susceptibilityOrdered By: Mechelle Francois on 11-19-2024 HBV surface Ag Ql (S) Non-Reactive Nonreactive [facility] Comment on above: Reactive: Presumptiv e evidence of HBV. Repeatedly reactive samples must be confirmed using a neutralization test ([employer] HBsAg Confirmatory Test)Non-Reactive: HBsAg not detected; does not exclude the possibility of exposure to HBV MCV (mean corpuscular volume ) determinationOrdered By: Mechelle Francois on 11-19-2024 MCV (RBC) [Entitic vol] 86.6 fL 81-99 [facility] Mean corpuscular hemoglobin (MCH) determinationOrdered By: Mechelle Francois on 11-19-2024 MCH (RBC) [Entitic mass] 30.5 pg 27.0-32.0 [facility] Mean corpuscular hemoglobin concentration (MCHC) determinationOrdered By: Mechelle Francois on 11-19-2024 MCHC (RBC) [Mass/Vol] 35.2 g/dL 32-36 [facility] Mean platelet volume determi nationOrdered By: Mechelle Francois on 11-19-2024 Platelet mean volume (Bld) [Entitic vol] 9.4 fL 6.2-12.0 [facility] Monocyte percentageOrdered B y: Mechelle Francois on 11-19-2024 Monocytes/100 WBC (Bld) 10.0 % 0-10 [facility] Neisseria gonorrhoeae nuclei c acid detection by amplified probe techniqueOrdered By: Mechelle Francois on 11-19-2024 N. gonorrhoeae DNA ANIRUDH+probe Ql (Unsp spec) Negative Negative [facility] Comment on above: Performed at: =[address] [id number] Director: Alina Arreola MD, Phone: [phone] Neutrophil percentageOrdered By: Mechelle Francois on 11-19-2024 Neutrophils/100 WBC (Bld) 71.3 % High 47-70 [facility] No Panel InformationOrdered By: Mechelle Francois on 11-19-2024 HIV (1&2) Antibody Non-Reactive Nonreactive [facility] Comment on above: Non-ReactiveReactive Repeatedly reactive samples must be confirmed according to CDC recommended confirmatory algorithms. The subresults for either HIVAG or AHIV can be used as an aid in the selection of the confirmation algorithm for reactive samples.Send out specimens with Reactive results to [facility] for confirmation.Order the HIV antibody detection and differentiation: #[id number] Nucleated red blood cell per centageOrdered By: Mechelle Francois on 11-19-2024 Nucleated RBC/100 WBC (Bld) [Ratio] 0 % 0-5 [facility] Carbon Rod Inserter Office Visit Reporton 11-19-2024 Carbon Rod Inserter Office Visit Report [facility]'[address], [address] [place] [address] OFFICE VISIT Date of Service: 11/19/24 MR#: [id number] Acct: [id number] Name: CHERY MCKEON Rep #: [id number] : 2000 Provider: GISELA Franks ams Age/Sex: 23/F Location: [facility] Status: Signed Intake Vital Signs 11/05/15 16:09 11/03/24 10:46 11/19/24 08:43 Height 5 ft 5 in 5 ft 5 in 5 ft 5 in Weight: 170 lb 6 oz BMI 28.3 BP 130/86 H Intake Visit Reasons: NOB LMP 09/16 Chief Complaint: New OB Cyanide Pot Hardener Required: No Is patient in pain?: No [...] past year?: No PFSH PFSH Surgical History [place] teeth removed S/P cholecystectomy Family History Grandfather Prostate cancer Grandmother Colon cancer CVA (cerebral vascular accident) Grandmother Dementia Father Diabetes Myocardial infarction Skin cancer Mother Heart disease Thyroid disorder Social History adopted: No household members: spouse housing: house current occupational status: employed current occupation: [employer] current occupational exposures/hazards: No pets and animals: [...] 1-2 times per week duration: 15-30 minutes/day guy/mu-ism: Zoroastrian seatbelt use: always do you feel safe at home: Yes 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 Normal [facility] Platelet countOrdered By: Pito Francois on 11-19-2024 Platelets (Bld) [#/Vol] 355 10*3/uL 150-450 [facility] RBC Auto (Bld) [#/Vol]Ordere d By: Mechelle Francois on 11-19-2024 RBC (Bld) [#/Vol] 4.49 10*6/uL 4.2-5.4 [facility] Syphilis Antibodieson 2024 Syphilis Abs Non-Reactive Normal Nonreactive [facility] Comment on above: Performed By: #### M 100.2200 #### [facility] [address] [place], [address] T4 Free Directon 11-19-2024 T4 FREE DIRECT 1.30 ng/dL Normal 0.76-1.46 [facility] Comment on above: Performed By: #### M 100.2200 #### [facility] [address] [place], [place], [id number] T4 freeOrdered By: Mechelle berkowitz on 11-19-2024 Free T4 [Mass/Vol] 1.30 ng/dL 0.76-1.46 [facility] TSH DL <= 0.005 mIU/L QnOrde red By: Mechelle Francois on 11-19-2024 TSH Qn 3.300 uIU/mL 0.300-4.200 [facility] Thyroid Stim Hormone (TSH)on 11-19-2024 TSH 3.300 uIU/mL Normal 0.300-4.200 [facility] Comment on above: Performed By: #### M 100.2200 #### [facility] [address] [facility] [place], [place], [address] Type AND Screenon 11-19-2024 ABO and Rh group Nom (Bld) Blood group O Rh(D) positive Normal [facility] Comment on above: Order Comment: PN Performed By: #### M 100.2200 #### [facility] [address] [facility] [place], [place], [id number] Urine cultureOrdered By: Dada Francois on 11-19-2024 Bacteria identified Cx Nom (U) GPC Poss Enterococcus sp Abnormal [facility] Bacteria identified Cx Nom (U) Positive Abnormal [facility] White blood cell (WBC) count Ordered By: Mechelle Francois on 11-19-2024 WBC (Bld) [#/Vol] 8.3 10*3/uL 4.4-11.0 [facility] - Chemistry and C hemistry - challengeOrdered By: Mechelle Francois on 11-03-2024 HCG ( test) Ql (U) Positive [facility] Office Visit Reporton 2024 Office Visit Report [facility] [address] [place] [address] OFFICE VISIT Date of Service: 11/03/24 MR#: [id number] Acct: [id number] Patient: CHERY MCKEON Rep #: [id number] : 2000 Provider: CHANG church Age/Sex: 23/F Location[place] [facility] Status: Signed Intake Vital Signs 11/05/15 16:09 [...] scheduled 11/03/24 1213 Date Mechelle Francois NP VARNISH SUPERVISOR-C Cosigner Signature: Date (if applicable) CC: Normal [facility] CBC (INCLUDES DIFF/PLT)on Basophils (Bld) [#/Vol] 0.038 10*3/uL Normal 0-200 [facility] Comment on above: Performed By: #### 6 399, 07897, 074, 559 #### [facility] of [address], [address] [place] [address] [employer]ug Press Operator: Jimbo Sal MD Basophils/100 WBC (Bld) 0.4 % Normal [facility] Comment on above: Performed By: #### 6 399, 09973, 89, 866 #### [facility] of [address], [address] [place] [address] [employer] Operator: Jimbo Sal MD Eosinophils (Bld) [#/Vol] 0.094 10*3/uL Normal 15-500 [facility] Comment on above: Performed By: #### 6 399, 92384, 89, 866 #### [facility] of [address], [address] [place] [address] [employer] Operator: Jimbo Sal MD Eosinophils/100 WBC (Bld) 1.0 % Normal [facility] Comment on above: Performed By: #### 6 399, 11651, , 866 #### [facility] of [place] [address] [employer] Operator: Jimbo Sal MD Erythrocyte distribution width (RBC) [Ratio] 12.0 % Normal 11.0-15.0 [facility] Comment on above: Performed By: #### 6 399, 81250, 89, 866 #### [facility] of [place] [address] [employer] Operator: Jimbo Sal MD Hematocrit (Bld) [Volume fraction] 41.9 % Normal 35.0-45.0 [facility] Comment on above: Performed By: #### 6 399, 05105, , 866 #### [facility] of [place] [address] [employer] Operator: Jimbo Sal MD Hemoglobin (Bld) [Mass/Vol] 14.1 g/dL Normal 11.7-15.5 [facility] Comment on above: Performed By: #### 6 399, 58495, , 866 #### [facility] of [address], [address] [place] [address] [employer] Operator: Jimbo Sal MD Lymphocytes (Bld) [#/Vol] 1.645 10*3/uL Normal 850-3900 [facility] Comment on above: Performed By: #### 6 399, , , 866 #### [facility] [place] [address] [employer] Operator: Jimbo Sal MD Lymphocytes/100 WBC (Bld) 17.5 % Normal [facility] Comment on above: Performed By: #### 6 399, , , 866 #### [facility] [place] [address] [employer] Operator: Jimbo Sal MD MCH (RBC) [Entitic mass] 30.8 pg Normal 27.0-33.0 [facility] Comment on above: Performed By: #### 6 399, , , 866 #### [facility] [place] [address] [employer] Operator: Jimbo Sal MD MCHC (RBC) [Mass/Vol] 33.7 [...] 399, , , 866 #### [facility] [place] [address] [employer] Operator: Jimbo Sal MD MCV (RBC) [Entitic vol] 91.5 fL Normal 80.0-100.0 [facility] Comment on above: Performed By: #### 6 399, , , 866 #### [facility] [place] [address] [employer] Operator: Jimbo Sal MD Monocytes (Bld) [#/Vol] 0.752 10*3/uL Normal 200-950 [facility] Comment on above: Performed By: #### 6 399, 94020, 89, 866 #### [facility] of [place] [address] [employer] Operator: Jimbo Sal MD Monocytes/100 WBC (Bld) 8.0 % Normal [facility] Comment on above: Performed By: #### 6 399, 47117, , 866 #### [facility] of [place] [address] [employer] Operator: Jimbo Sal MD Neutrophils (Bld) [#/Vol] 6.871 10*3/uL Normal 0741-8194 [facility] Comment on above: Performed By: #### 6 399, 26335, , 866 #### [facility] of [place] [address] [employer] Operator: Jimbo Sal MD Neutrophils/100 WBC (Bld) 73.1 % Normal [facility] Comment on above: Performed By: #### 6 399, 42784, , 866 #### [facility] of [place] [address] [employer] Operator: Jimbo Sal MD Platelet mean volume (Bld) [Entitic vol] 9.4 fL Normal 7.5-12.5 [facility] Comment on above: Performed By: #### 6 399, 56509, , 866 #### [facility] of [place] [address] [employer] Operator: Jimbo Sal MD Platelets (Bld) [#/Vol] 401 10*3/uL High 140-400 [facility] Comment on above: Performed By: #### 6 399, 66079, 89, 866 #### [facility] of [place] [address] [employer] Operator: Jimbo Sal MD RBC (Bld) [#/Vol] 4.58 10*6/uL Normal 3.80-5.10 [facility] Comment on above: Performed By: #### 6 399, 04178, 89, 866 #### [facility] of [place] [address] [employer] Operator: Jimbo Sal MD WBC (Bld) [#/Vol] 9.4 10*3/uL Normal 3.8-10.8 [facility] Comment on above: Performed By: #### 6 399, 78255, , 866 #### [facility] of [place] [address] [employer] Operator: Jimbo Sal MD [facility] 06-14-2024 Albumin [Mass/Vol] 4.6 g/dL Normal 3.6-5.1 [facility] Comment on above: Performed By: #### 6 399, 48718, , 866 #### [facility] of [place] [address] [employer] Operator: Jimbo Sal MD Albumin/Globulin [Mass ratio] 2.1 {ratio} Normal 1.0-2.5 [facility] Comment on above: Performed By: #### 6 399, 87715, 89, 866 #### [facility] of [place] [address] [employer] Operator: Jimbo Sal MD ALP [Catalytic activity/Vol] 47 U/L Normal 31-125 [facility] Comment on above: Performed By: #### 6 399, 85234, , 866 #### [facility] of [place] [address] [employer] Operator: Jimbo Sal MD ALT [Catalytic activity/Vol] 16 U/L Normal 6-29 [facility] Comment on above: Performed By: #### 6 399, 22063, 89, 866 #### [facility] of [place] [address] [employer] Operator: Jimbo Sal MD AST [Catalytic activity/Vol] 19 U/L Normal 10-30 [facility] Comment on above: Performed By: #### 6 399, 77126, 89, 866 #### [facility] [place] [address] [employer] Operator: Jimbo Sal MD Bilirubin [Mass/Vol] 0.4 mg/dL Normal 0.2-1.2 [facility] Comment on above: Performed By: #### 6 399, 74600, , 866 #### [facility] [place] [address] [employer] Operator: Jimbo Sal MD BUN/CREATININE RATIO SEE NOTE: Normal 6-22 [facility] Comment on above: Result Comment: Not Reported: BUN and Creatinine are within reference range. Performed By: #### 6 399, 32493, , 866 #### [facility] [place] [address] [employer] Operator: Jimbo Sal MD Calcium [Mass/Vol] 9.9 mg/dL Normal 8.6-10.2 [facility] Comment on above: Performed By: #### 6 399, 43985, , 866 #### [facility] [place] [address] [employer] Operator: Jimbo Sal MD Chloride [Moles/Vol] 106 mmol/L Normal 98-110 [facility] Comment on above: Performed By: #### 6 399, 32955, , 866 #### [facility] [place] [address] [employer] Operator: Jimbo Sal MD CO2 [Moles/Vol] 24 mmol/L Normal 20-32 [facility] Comment on above: Performed By: #### 6 399, 87625, 89, 866 #### [facility] of [place] [address] [employer] Operator: Jimbo Sal MD Creatinine [Mass/Vol] 0.70 mg/dL Normal 0.50-0.[address] [facility] Comment on above: Performed By: #### 6 399, 43773, , 866 #### [facility] [place] [address] [employer] Operator: Jimbo Sal MD GFR/1.73 sq M.predicted among non-blacks MDRD (S/P/Bld) [Vol rate/Area] 125 mL/min/{1.73_m2} Normal > OR = 60 [facility] Comment on above: Performed By: #### 6 399, 39327, , 866 #### [facility] [place] [address] [employer] Operator: Jimbo Sal MD Globulin (S) [Mass/Vol] 2.2 g/dL Normal 1.9-3.7 [facility] Comment on above: Performed By: #### 6 399, , , 866 #### [facility] [place] [address] [employer] Operator: Jimbo Sal MD Glucose [Mass/Vol] 89 mg/dL Normal 65-99 [facility] Comment on above: Result Comment: Fasting reference interval Performed By: #### 6 399, 62612, , 866 #### [facility] [place] [address] [employer] Operator: Jimbo Sal MD Potassium [Moles/Vol] 4.1 mmol/L Normal 3.5-5.[address] [facility] Comment on above: Performed By: #### 6 399, 80266, , 866 #### [facility] [place] [address] [employer] Operator: Jimbo Sal MD Protein [Mass/Vol] 6.8 g/dL Normal 6.1-8.1 [facility] Comment on above: Performed By: #### 6 399, 24946, , 866 #### [facility] of [place] [address] [employer] Operator: Jimbo Sal MD Sodium [Moles/Vol] 138 mmol/L Normal 135-146 [facility] Comment on above: Performed By: #### 6 399, 38295, 899, 866 #### [facility] [place] [address] [employer] Operator: Jimbo Sal MD Urea nitrogen [Mass/Vol] 12 mg/dL Normal 7-25 [facility] Comment on above: Performed By: #### 6 399, 50015, 89, 866 #### [facility] [place] [address] [employer] Operator: Jimbo Sal MD FERRITINon 06-14-2024 Ferritin [Mass/Vol] 19 ng/mL Normal 16-154 [facility] Comment on above: Performed By: #### 6 399, 17359, 89, 866 #### [facility] [place] [address] [employer] Operator: Jimbo Sal MD T4, FREEon 06-14-2024 Free T4 [Mass/Vol] 1.3 ng/dL Normal 0.8-1.8 [facility] Comment on above: Performed By: #### 6 399, 76732, 899, 866 #### [facility] [place] [address] [employer] Operator: Jimbo Sal MD TSHon 06-14-2024 TSH Qn 1.71 m[IU]/L Normal [facility] Comment on above: Result Comment: Refe rence Range > or = 20 Years 0.40-4.50 Ranges First trimester 0.26-2.66 Second trimester 0.55-2.73 Third trimester 0.43-2.91 Performed By: #### 6 399, 60179, 89, 866 #### [facility] [place] [address] [employer] Operator: Jimbo Sal MD Laboratory - Chemistry and C hemistry - challengeon 06-12-2024 Albumin [Mass/Vol] 4.6 g/dL Normal 3.6 - 5.1 g/dL [facility], [facility] Albumin/Globulin [Mass ratio] 2.1 {ratio} Normal 1.0 - 2.5 [facility]; [facility] ALP [Catalytic activity/Vol] 47 U/L Normal 31 - 125 U/L [facility].; [facility], [facility] ALT [Catalytic activity/Vol] 16 U/L Normal 6 - 29 U/L [facility].; [facility], [facility] AST [Catalytic activity/Vol] 19 U/L Normal 10 - 30 U/L [facility]; [facility], [facility] Bilirubin [Mass/Vol] 0.4 mg/dL Normal 0.2 - 1.2 mg/dL [facility]; [facility], [facility] Calcium [Mass/Vol] 9.9 mg/dL Normal 8.6 - 10. 2 mg/dL [facility].; [facility], [facility] Chloride [Moles/Vol] 106 mmol/L Normal 98 - 110 mmol/L [facility]; [facility], [facility] CO2 [Moles/Vol] 24 mmol/L Normal 20 - 32 mmol/L [facility]; [facility], [facility] Creatinine [Mass/Vol] 0.70 mg/dL Normal 0.50 - 0.96 mg/dL [facility].; [facility], [facility] Ferritin [Mass/Vol] 19 ng/mL Normal 16 - 154 ng/mL [facility].; [facility], [facility]. Free T4 [Mass/Vol] 1.3 ng/dL Normal 0.8 - 1.8 ng/dL [facility].; [facility], [facility] GFR/1.73 sq M.predicted among non-blacks MDRD (S/P/Bld) [Vol rate/Area] 125 mL/min/{1.73_m2} Normal [facility], [facility].; [facility], [facility] Glucose [Mass/Vol] 89 mg/dL Normal 65 - 99 mg/dL [facility].; [facility] [employer] Potassium [Moles/Vol] 4.1 mmol/L Normal 3.5 - 5.3 mmol/L [facility].; [facility] Protein [Mass/Vol] 6.8 g/dL Normal 6.1 - 8.1 g/dL [facility].; [facility], [facility] Sodium [Moles/Vol] 138 mmol/L Normal 135 - 146 mmol/L [facility].; [facility] TSH Qn 1.71 m[IU]/L Normal [facility]; [facility], [facility] Urea nitrogen [Mass/Vol] 12 mg/dL Normal 7 - 25 mg/d L [facility].; [facility] Laboratory - Hematology and Cell countson 06-12-2024 Basophils (Bld) [#/Vol] 0.038 10*3/uL Normal 0 - 200 {cells/uL} [facility].; [facility], [facility] Basophils/100 WBC (Bld) 0.4 % Normal [facility].; [facility] Eosinophils (Bld) [#/Vol] 0.094 10*3/uL Normal 15 - 500 {cells/uL} [facility].; [facility] Eosinophils/100 WBC (Bld) 1.0 % Normal [facility]; [place] [facility] [facility] Erythrocyte distribution width (RBC) [Ratio] 12.0 % Normal 11.0 - 15.0 % [facility].; [place] [facility] Hematocrit (Bld) [Volume fraction] 41.9 % Normal 35.0 - 45.0 % [place] [employer] [facility].; [place] [employer] [facility] Hemoglobin (Bld) [Mass/Vol] 14.1 g/dL Normal 11.7 - 15.5 g/dL [facility].; [facility], [facility] Lymphocytes (Bld) [#/Vol] 1.645 10*3/uL Normal 850 - 3900 {cells/uL} [place] [employer] [facility].; [place] [employer] [facility] Lymphocytes/100 WBC (Bld) 17.5 % Normal [facility], [employer] MCH (RBC) [Entitic mass] 30.8 pg Normal 27.0 - 33.0 pg [place] [employer] MCHC (RBC) [Mass/Vol] 33.7 g/dL Normal 32.0 - 36.0 g/dL [facility] [employer] MCV (RBC) [Entitic vol] 91.5 fL Normal 80.0 - 100.0 fL [place] [employer] Monocytes (Bld) [#/Vol] 0.752 10*3/uL Normal 200 - 950 {cells/uL} [place] [employer] Monocytes/100 WBC (Bld) 8.0 % Normal H [facility].; [employer] Neutrophils (Bld) [#/Vol] 6.871 10*3/uL Normal 1500 - 7800 {cells/uL} [place] [employer] Neutrophils/100 WBC (Bld) 73.1 % Normal [place] [employer] Platelet mean volume (Bld) [Entitic vol] 9.4 fL Normal 7.5 - 12.5 fL [facility] [employer] Platelets (Bld) [#/Vol] 401 10*3/uL Abnormal 140 - 400 [employer] RBC (Bld) [#/Vol] 4.58 10*6/uL Normal 3.80 - 5.1 0 {Million/uL} [employer] WBC (Bld) [#/Vol] 9.4 10*3/uL Normal 3.8 - 10.8 [employer] No Panel Informationon 06-12 BUN/CREATININE RATIO SEE NOTE: Normal - 22 [facility] [employer] GLOBULIN 2.2 Normal 1.9 - 3.7 [employer] [place] Pelvison 09-03-2024 Indication Dyspareunia Impression Normal appearing anteverted uterus [...] Read By: Maia Ludwig M.D. MATERNAL MEDICINE [facility]ison 03-20-2024 Radiology Study observation (narrative) [facility] BACTERIAL VAGINOSIS NAATon 0 03-11-2024 Lactobacillus crispatus+gasseri+hahn ii + Gardnerella vaginalis + Atopobium vaginae rRNA ANIRUDH+probe Ql (Vag fld) Negative Normal Negative for bacterial vaginosis [facility] Comment on above: Order Comment: Speci men Type: SWAB Ordering Facility: [facility] Address: [address] [place] [address] Performed By: #### ANT GOFF #### [facility] CLIA [id number] [address] [place] [address] [place] [address] [place] C. trachomatis+N. gonorrhoea e DNA ANIRUDH+probe Ql (Unsp spec)on 03-11-2024 C. trachomatis rRNA ANIRUDH+probe Ql (Unsp spec) Negative Normal Negative for Chlamydia trachomatis by amplificaton [facility] Comment on above: Order Comment: Speci men Type: SWAB Ordering Facility: [facility] Address: [address] [place] [address] Performed By: #### 3 6902-5 #### [facility] CLIA [id number] [address] [place] [address] [place] N. gonorrhoeae rRNA ANIRUDH+probe Ql (Unsp spec) Negative Normal Negative for Neisseria gonorrhoeae by amplification [facility] Comment on above: Order Comment: Speci men Type: SWAB Ordering Facility: [facility] Address: [address] [place] [address] Performed By: #### 3 6902-5 #### [facility] CLIA [id number] [address] [place] [address] [place] FLORIDALMA/TRICHOMONAS NAATon 0 03-11-2024 C. glabrata RNA ANIRUDH+probe Ql (Vag fld) Negative Normal Negative for [place] glabrata [facility] Comment on above: Order Comment: Speci men Type: SWAB Ordering Facility: [facility] Address: [address] [place] [address] Performed By: #### B VAMP, CVTV #### [facility] CLIA [id number] [address] [place] [address] [place] Flor[place]ma sp DNA ANIRUDH+probe Ql (Vag fld) Negative Normal Negative for [place] species [facility] Comment on above: Order Comment: Speci men Type: SWAB Ordering Facility: [facility] Address: [address] [place] [address] Performed By: #### B VAMP, CVTV #### [facility] CLIA [id number] [address] [place] [address] [place] T. vaginalis DNA ANIRUDH+probe Ql (Unsp spec) Negative Normal Negative for Trichomonas vaginalis by amplification [facility] Comment on above: Order Comment: Speci men Type: SWAB Ordering Facility: [facility] Address: [address] [place], [place] [address] Performed By: #### B ANT ROBLES #### [facility] CLIA [id number] [address] [place] [address] [place] [address] [place] [facility] CNOVon 03-11-2024 CNOV Office Visit (OBGYWM) -------- CHERY MCKEON ([id number]) 1 F Date Time Provider Department 03/11/24 7:45 AM ELIJAH LYMAN During your visit today, we recorded the following information about you: Blood pressure Weight Last Period 122/80 71.2 kg 02/28/24 Elijah Lyman, MINOR.MACHINE FEEDER FLOORPERSON 03/11/2024 8:17 AM Signed Director Of Coding offered: Patient declines. Chery Mckeon is a [...] OB History No obstetric history on file. Workflow Developer History LMP: Age at Menarche: Age at First : Age at Menopause: Workflow Developer History Comments: Sexual Activity: No sexual activity [...] incontinence. + dysuria after intercourse Expanded ROS: LEGAL OFFICER: + dyspareunia Allergies and current medication updated:Yes EXAM: BP 122/80 Wt 157 lb (71.2kg) LMP 02/28/2024 GENERAL: pleasant, female in no apparent distress HEENT: Normocephalic, atraumatic, mucus membranes moist, and no lesions CHEST: Normal inspiratory effort PELVIC: + erythema to bilateral clitoris, normal Bartholin's glands, urethra, First Mesa's glands, no vulvar lesions, no cervical lesions, [...] Date Reviewed: 03/11/2024 Reviewed by: Elijah Lyman APRN.CNP - Fully Assessed Primary Visit Diagnosis:Dyspareu garry in female [N94.10] Other Visit Diagnoses:Screen for STD (sexually transmitted disease) [Z11.3] Encounter for screening for malignant neoplasm of cervix [Z12.4] Order(s):PAP TEST [[id number]] Order #: [id number]. #:[id number] GONORRHEA/CHLAMYDI A NAAT [SQGCCT] Order #: [id number]. #:[id number] FLORIDALMA/TRICHOMONA S NAAT [SQCVTV] Order #: [id number]. #:[id number] BACTERIAL VAGINOSIS NAAT [SQBVAMP] Order #: [id number]. #:[id number] PELVIC US WHI [[id number]] Order #: [id number]: 1 FUTURE Prescriptions as of 03/11/2024 - levothyroxine 100 mcg cap - norgestimate 0.25 mg-ethinyl estradiol 35 mcg (STACI) 0.25-35 mg-mcg per tablet Problem List As Of Date: 03/11/2024 (None) Encounter Status:Closed by ELIJAH LYMAN on 03/11/24 Normal [facility] PAP TESTon 03-11-2024 ADEQUACY Normal [facility] Comment on above: Order Comment: Speci men Type: FLUID SPECIMEN Ordering Facility: [facility] Address: [address] [place] [address] Result Comment: Sati sfactory for interpretation. No endocervical component Performed By: #### L [id number] #### [facility] CLIA [id number] [address] [place] [address] OF [facility] CLIA [id number] [address] [place] [address] OF [facility] CASE REPORT Normal [facility] Comment on above: Order Comment: Speci men Type: FLUID SPECIMEN Ordering Facility: [facility] Address: [address] [place] [address] Result Comment: Gyne cologic Cytology Report Case: [id number] Authorizing Provider: Elijah Lyman APRN.MACHINE FEEDER FLOORPERSON Collected: 03/11/2024 08:10 AM Ordering Location: OB/Gynecology Received: 03/11/2024 12:09 PM First Screen: Gladkaya, Shireen, CT, ASCP Specimen: Pap Test, ThinPrep, Cervix Performed By: #### L [id number] #### [facility] CLIA [id number] [address] [place] [address] [place] [facility] CLIA [id number] [address] [place] [address] [place] CLINICAL HISTORY, CYTOLOGY, LEGAL OFFICER Routine Exam Normal [facility] Comment on above: Order Comment: Speci men Type: FLUID SPECIMEN Ordering Facility: [facility] Address: [address] [place] [address] Performed By: #### L [id number] #### [facility] CLIA [id number] [address] [place] [address] [place] [facility] CLIA [id number] [address] [place] [address] [place] FINAL PERFORMING LAB Normal [facility] Comment on above: Order Comment: Speci men Type: FLUID SPECIMEN Ordering Facility: [facility] Address: [address] [place] [address] Result Comment: Tech nical component, neonatal social worker screening performed at [facility], [address] [id number] CLIA# [id number] Diagnostic interpretation performed at [facility], [address] [id number] CLIA# [id number] Manufacturing Team Member: Fannie Dickerson M.D. Performed By: #### L [id number] #### [facility] CLIA [id number] [address] [place], [place] [id number] [place] [facility] CLIA [id number] [address] [place] [address] [place] HPV REFLEX HPV if Atypical Normal [facility] Comment on above: Order Comment: Speci men Type: FLUID SPECIMEN Ordering Facility: [facility] Address: [address] [place] [address] Performed By: #### L [id number] #### [facility] CLIA [id number] [address] [place] [address] [place] [facility] CLIA [id number] [address] [place] [address] [place] INTERPRETATION, CYTOLOGY, LEGAL OFFICER Normal [facility] Comment on above: Order Comment: Speci men Type: FLUID SPECIMEN Ordering Facility: [facility] Address: [address] [place] [address] Result Comment: Nega tive for intraepithelial lesion or malignancy. Performed By: #### L [id number] #### [facility] CLIA [id number] [address] [place] [address] [place] [facility] CLIA [id number] [address] [place] [address] [place] LMP 02/28/2024 Normal [facility] Comment on above: Order Comment: Speci men Type: FLUID SPECIMEN Ordering Facility: [facility] Address: [address] [place] [address] Performed By: #### L [id number] #### [facility] CLIA [id number] [address] [place] [address] [place] [facility] CLIA [id number] [address] [place] [address] [place] PAP DISCLAIMER COMMENT The Pap Smear is a screening test for cervical cancer. False negative results occur with all screening tests, emphasizing the need for rescreening at recommended intervals, and clinical correlation. Normal [facility] Comment on above: Order Comment: Speci men Type: FLUID SPECIMEN Ordering Facility: [facility] Address: [address] [place] [address] Performed By: #### L [id number] #### [facility] CLIA [id number] [address] [place] [address] [place] [facility] CLIA [id number] [address] [place] [address] [place] PAP HEALTH PROMOTION COORDINATOR COMMENT This specimen has been analyzed by the iBuyitBetterp Imaging System, an automated imaging and review system, which assists the laboratory in evaluating cells on ThinPrep Pap tests. Following automated imaging, selected umanzor from every slide are reviewed by a neonatal social worker. Normal [facility] Comment on above: Order Comment: Speci men Type: FLUID SPECIMEN Ordering Facility: [facility] Address: [address] [place] [address] Performed By: #### L [id number] #### [facility] CLIA [id number] [address] [place] [address] [place] [facility] CLIA [id number] [address] [place], [place] [address] [address] [place] TSHon 01-04-2024 TSH Qn 1.45 m[IU]/L Normal [facility] Comment on above: Result Comment: Refe rence Range > or = 20 Years 0.40-4.50 Ranges First trimester 0.26-2.66 Second trimester 0.55-2.73 Third trimester 0.43-2.91 Performed By: #### 8 99 #### [facility] [address], [address] [place] [id number] Slug Press Operator: Jimbo Sal MD Laboratory - Chemistry and C hemistry - challengeon 01-03-2024 TSH Qn 1.45 m[IU]/L Normal [facility] [employer], [facility]. Laboratory - Chemistry and C hemistry - challengeon 02-26-2023 TSH Qn 0.98 m[IU]/L Normal [employer], [facility]. Laboratory - Chemistry and C hemistry - challengeon 11-28-2022 Free T4 [Mass/Vol] 1.3 ng/dL Normal 0.8 - 1.8 ng/dL H [facility] [employer], [employer], [employer]. Work Phone: Laboratory - Hematology and Cell countson 11-28-2022 Basophils (Bld) [#/Vol] 0.048 10*3/uL Normal 0 - 200 {cells/uL} [employer].; [employer], [employer]. Basophils/100 WBC (Bld) 0.7 % Normal H [facility].; [facility], [facility]. Eosinophils (Bld) [#/Vol] 0.258 10*3/uL Normal 15 - 500 {cells/uL} [facility].; [facility], [facility]. Eosinophils/100 WBC (Bld) 3.8 % Normal [facility].; [facility], [facility]. Erythrocyte distribution width (RBC) [Ratio] 12.3 % Normal 11.0 - 15.0 % [facility].; [place] [employer], [facility]. Hematocrit (Bld) [Volume fraction] 42.7 % Normal 35.0 - 45.0 % [facility].; [facility], [facility]. Hemoglobin (Bld) [Mass/Vol] 14.3 g/dL Normal 11.7 - 15.5 g/dL [facility].; [facility], [facility]. Lymphocytes (Bld) [#/Vol] 1.632 10*3/uL Normal 850 - 3900 {cells/uL} [facility].; [place] [employer] [facility]. Lymphocytes/100 WBC (Bld) 24.0 % Normal [facility].; [facility], [facility]. MCH (RBC) [Entitic mass] 30.6 pg Normal 27.0 - 33.0 pg [facility].; [place] [employer], [facility]. MCHC (RBC) [Mass/Vol] 33.5 g/dL Normal 32.0 - 36.0 g/dL [facility].; [place] [employer] [facility]. MCV (RBC) [Entitic vol] 91.2 fL Normal 80.0 - 100.0 fL [facility].; [place] [employer] [facility]. Monocytes (Bld) [#/Vol] 0.632 10*3/uL Normal 200 - 950 {cells/uL} [facility].; [place] [employer], [facility]. Monocytes/100 WBC (Bld) 9.3 % Normal [facility].; [facility] [employer], [facility]. Neutrophils (Bld) [#/Vol] 4.23 10*3/uL Normal 1500 - 7800 {cells/uL} [facility].; [facility]. Neutrophils/100 WBC (Bld) 62.2 % Normal [facility]; [facility] Platelet mean volume (Bld) [Entitic vol] 9.5 fL Normal 7.5 - 12.5 fL [facility], [facility] Platelets (Bld) [#/Vol] 304 10*3/uL Normal 140 - 400 [facility]; [facility], [facility] RBC (Bld) [#/Vol] 4.68 10*6/uL Normal 3.80 - 5.1 0 {Million/uL} [facility]; [facility] WBC (Bld) [#/Vol] 6.8 10*3/uL Normal 3.8 - 10.8 [facility]; [facility] No Panel Informationon 11-28 [id number] See Below Normal [facility]; [facility] Work Phone: CLIENT CONTACT: LLOYD OCHOA Normal [facility]; [facility] Work Phone: TEST CODE: [id number] Normal [facility]; [facility] Work Phone: TEST NAME: THYROID PEROXIDASE Normal [facility]; [facility] Work Phone: THYROID PEROXIDASE ANTIBODIES 30 {IU/mL} Abnormal [facility]; [facility] Work Phone: TSH W/REFLEX TO FT4 4.81 {mIU/L} Abnormal [facility]; [facility] Laboratory - Chemistry and C hemistry - challengeon 12-08-2021 CRP [Mass/Vol] 1.8 mg/L Normal [facility]; [place] [employer]. No Panel Informationon 12-08 [id number] SEE NOTE Normal [facility]; [facility] [id number] SEE NOTE Normal [facility]; [facility] CHLAMYDIA TRACHOMATIS RNA, TMA, UROGENITAL Not detected Normal [facility]; [facility] CLINICAL INFORMATION: SEE NOTE Normal [facility]; [facility], [facility] FLEXOGRAPHIC PRESS OPERATOR: SEE NOTE Normal [facility]; [facility] HEPATITIS B SURFACE ANTIGEN Non-Reactive Normal [facility]; [facility] HEPATITIS C ANTIBODY Non-Reactive Normal [facility]; [facility] HIV AG/AB, 4TH GEN Non-Reactive Normal [facility]; [facility] INDEX 0.01 Normal [facility]; [facility] INTERPRETATION/RESULT: SEE NOTE Normal [facility]; [facility]. LMP: SEE NOTE Normal [facility]; [facility]. NEISSERIA GONORRHOEAE RNA, TMA, UROGENITAL Not detected Normal [facility]; [facility] PREV. BX: SEE NOTE Normal [facility]; [facility] PREV. PAP: SEE NOTE Normal [facility]; [facility]. REVIEW FLEXOGRAPHIC PRESS OPERATOR: SEE NOTE Normal [facility]; [facility] RHEUMATOID FACTOR <14 Normal [facility]; [facility] RPR (DX) W/REFL TITER AND CONFIRMATORY TESTING Non-Reactive Normal [facility]; [place] [facility]. SED RATE BY MODIFIED WESTERGREN 2 mm/h Normal [facility]; [facility]. SOURCE: SEE NOTE Normal [facility]; [facility] STATEMENT OF ADEQUACY: SEE NOTE Normal [facility]; [facility] Laboratory - Microbiology an d Antimicrobial susceptibilityon 02-17-2021 S. pyogenes Ag EIA Ql (Throat) Negative Normal [facility]; [facility] Laboratory - Chemistry and C hemistry - challengeon 06-08-2019 Bilirubin Ql (U) Negative Normal [facility].; [employer]. Ketones Ql (U) Negative Normal [employer].; [employer]. pH (U) 5.5 [pH] Normal [employer].; [employer]. Specific gravity (U) [Rel density] 1.025 Normal [employer].; [employer]. Urobilinogen Qn (U) 0.2 mg/dL Normal [facility] [employer].; [employer]. Laboratory - Hematology and Cell countson 06-08-2019 Hemoglobin Ql (U) Negative Normal [employer]; [employer]. Laboratory - Microbiology an d Antimicrobial susceptibilityon 06-08-2019 Bacteria identified Cx Nom (U) SEE NOTE Normal [employer].; [employer]. Laboratory - Specimen inform ationon 06-08-2019 Appearance (U) clear Normal [employer].; [employer]. Color (U) yellow Normal [employer]; [employer]. Specimen source Nom (Unsp spec) URINE-NOT GIVEN Normal [employer]; [employer]. Laboratory - Urinalysison Glucose Test strip (U) [Mass/Vol] Negative Normal [employer].; [employer]. Leukocyte esterase Test strip Ql (U) trace Normal [employer].; [employer]. Nitrite Ql (U) Negative Normal [employer].; [employer]. Protein Ql (U) trace Normal [employer].; [employer]. Final Surgical Pathology Rep tamia 12-24-2018 Final Surgical Pathology Report . 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 COMMENT: [facility] [id number] CLINICAL INFORMATION: BILIARY DYSKINESIA SPECIMEN: A GALLBLADDER [...] thickness. RS -1 Dictated by Melissa GOMEZ ([facility]) MICROSCOPIC DESCRIPTION: Slides reviewed. Electronically Signed by Pathology Report verified by [facility] Electronically signed by ANA M VELASQUEZ MD Sign out Date: 12/24/2018 16:14 Performing Lab: [address] ([place]) Comment on above: Performed By: #### S PFR #### [place] [address] OPERATIVE PROCEDURESon 12-23 OPERATIVE PROCEDURES [facility] OPERATIVE REPORT NAME ACCOUNT SEX AGE ADMIT DISCHARGE PT MED. RECORD# NUMBER DATE DATE TYPE AMANDEEP, [id number] F 18 12/18/18 12/18/18 2 CHERY Belle [id number] ROOM: [facility] DATE OF : 2000 DICTATING PHYSICIAN: Natalia Liang DATE OF SURGERY: December 18, 2018 SURGEON: Natalia Liang MD ENROLLMENT SPECIALIST: Maida Alaniz CSA ANESTHESIOLOGIST: ANESTHETIC: General endotracheal [...] as tolerated. Medications: The patient was given [place] as needed for pain, [place] as needed [...] Natalia Liang MD 12/20/18 10:39 JOB #: [id number] Transcribed By: maycol 12/20/18 14:37 Electronically signed by: E-SIGN DR. LIANG 12/23/18 09:07 Page 2 of 2 CHERY BERNSTEIN Operative Report Normal [facility] URINEon 12-18-2018 Beta HCG ( test) Ql (U) Negative Normal NEGATIVE [facility] Comment on above: Performed By: #### 2 [id number] #### [facility],[address] [place] [address] EXTERNAL QC DONE? YES Normal [facility] Comment on above: Performed By: #### 2 [id number] #### [facility],[address] [place] [address] INTERNAL QC PASS Normal [facility] Comment on above: Performed By: #### 2 [id number] #### [facility],[address] [place] [address] [place] HIDA SCANon 11-14-2018 NM HIDA SCAN [place] [address] Patient: CHERY BERNSTEIN Phone#: : 2000 Age: 17 Gender: F Pt. Type: Out Account: [id number] Location: Ordering: ANNA MARIE SALES Exam Date: 11/14/2018/8:16 Family Phys: ÁNGELA FERMIN Charge Code: [id number] Physician: Stonewall Order #: [id number] DLP Dose#: PROCEDURE: HIDA SCAN COMPARISON: None. [...] Vargas MD on 11/14/2018 at 15:05 Normal [facility] US RUQ (GB/PANCREAS)on 11-14 RUQ (GB/PANCREAS) [place] [address] Patient: CHERY BERNSTEIN Phone#: : 2000 Age: 17 Gender: F Pt. Type: Out Account: [id number] Location: Ordering: ANNA MARIE LIVERMORE Exam Date: 11/14/2018/9:21 Family Phys: ÁNGELA FERMIN Charge Code: [id number] Physician: Stonewall Order #: [id number] DLP Dose#: PROCEDURE: RUQ (GB) ULTRASOUND COMPARISON: [...] VARGAS MD ON 11/14/2018 AT 12:35 Normal [facility] Laboratory - Chemistry and C hemistry - challengeon 10-30-2018 Albumin [Mass/Vol] 5.1 g/dL Normal 3.6 - 5.1 g/dL [facility] [employer], [employer].; [employer] Albumin/Globulin [Mass ratio] 2.2 {ratio} Normal 1.0 - 2.5 [employer], [employer].; [employer], [employer]. ALP [Catalytic activity/Vol] 50 U/L Normal 47 - 176 U/L [employer], [employer].; [employer] ALT [Catalytic activity/Vol] 20 U/L Normal 5 - 32 U/L [employer], [employer]. AST [Catalytic activity/Vol] 25 U/L Normal 12 - 32 U/L [employer], [employer].; [employer], [employer]. Bilirubin [Mass/Vol] 0.6 mg/dL Normal 0.2 - 1.1 mg/dL [employer], [employer]. Calcium [Mass/Vol] 9.8 mg/dL Normal 8.9 - 10. 4 mg/dL [employer].; [employer], [employer]. Chloride [Moles/Vol] 107 mmol/L Normal 98 - 110 mmol/L [employer], [employer].; [employer], [facility]. CO2 [Moles/Vol] 22 mmol/L Normal 20 - 32 mmol/L [facility], [facility] Creatinine [Mass/Vol] 0.61 mg/dL Normal 0.50 - 1.00 mg/dL [facility].; [facility], [facility] GFR/1.73 sq M.predicted among blacks MDRD (S/P/Bld) [Vol rate/Area] SEE NOTE Normal [facility].; [facility], [facility] GFR/1.73 sq M.predicted MDRD (S/P/Bld) [Vol rate/Area] SEE NOTE Normal [facility], [facility].; [facility], [facility] Globulin (S) [Mass/Vol] 2.3 g/dL Normal 2.0 - 3.8 g/ dL [facility]; [facility], [facility] Glucose [Mass/Vol] 74 mg/dL Normal 65 - 99 mg/dL [facility].; [facility], [facility] Potassium [Moles/Vol] 4.4 mmol/L Normal 3.8 - 5.1 mmol/L [facility]; [facility] [facility], [facility] Protein [Mass/Vol] 7.4 g/dL Normal 6.3 - 8.2 g/dL [facility]; [facility], [facility] Sodium [Moles/Vol] 138 mmol/L Normal 135 - 146 mmol/L [facility].; [facility], [facility] Urea nitrogen [Mass/Vol] 13 mg/dL Normal 7 - 20 mg/d L [facility].; [facility], [facility] Urea nitrogen/Creatinine [Mass ratio] 20.8 mg/mg Normal [facility]; [facility], [facility] Laboratory - Hematology and Cell countson 06-23-2018 Basophils/100 WBC (Bld) 0.3 % Normal 0 - 1 % H [facility].; [facility], [facility] Eosinophils/100 WBC (Bld) 1.6 % Normal 0 - 5 % [facility]; [facility], [facility] Erythrocyte distribution width (RBC) [Ratio] 12.3 % Normal 11.6 - 14.6 % [facility] [employer] [facility].; [place] [employer] Hematocrit (Bld) [Volume fraction] 38.1 % Normal 37 - 47 % [place] [employer] [place] [employer] Hemoglobin (Bld) [Mass/Vol] 13.2 g/dL Normal 12.0 - 15.0 g/dL [facility] [employer], [facility].; [place] [employer] Lymphocytes/100 WBC (Bld) 22.0 % Normal 19 - 41 % [place] [employer] [employer] MCH (RBC) [Entitic mass] 30.3 pg Normal 27.0 - 32.0 pg [place] [employer] [place] [employer] MCV (RBC) [Entitic vol] 87.4 fL Normal 81 - 99 fL [facility] [employer], [employer].; [place] [employer] Monocytes (Bld) [#/Vol] Negative Normal [facility] [employer].; [place] [employer] Monocytes/100 WBC (Bld) 10.6 % Abnormal 0 - 10 % [facility] [employer].; [place] [employer] Neutrophils/100 WBC (Bld) 65.4 % Normal 47 - 70 % [place] [employer].; [place] [employer] Platelet mean volume (Bld) [Entitic vol] 8.8 fL Normal 6.2 - 12.0 fL [facility] [employer], [facility].; [employer] Platelets (Bld) [#/Vol] 256 10*3/uL Normal 150 - 450 K /mm3 [place] [employer].; [place] [employer] RBC (Bld) [#/Vol] 4.36 10*6/uL Normal 4.1 - 4.8 {M/mm3} [employer] WBC (Bld) [#/Vol] 6.7 10*3/uL Normal 4.4 - 11.0 K/mm3 [place] [employer] No Panel Informationon 06-23 Absolute Lymph 1.47 {X10_3/ul} Normal 0.83 - 4.5 1 {X10_3/ul} [facility].; [facility]. Absolute Neut 4.4 {X10_3/uL} Normal 2.0 - 7.7 {X10_3/uL} [facility].; [facility]. IM GRAN % 0.100 % Normal 0.0 - 0.9 % [facility].; [place] [employer] [facility] MCHC 34.6 {g/gl} Normal 32 - 36 {g/gl} [facility].; [place] [employer] [facility]. RDW SD 39.4 fL Normal 35.1 - 43.9 fL [facility].; [place] [employer] [facility] Laboratory - Chemistry and C hemistry - challengeon 01-28-2018 Free T3 [Mass/Vol] T3, FREE Normal [facility]; [place] [employer] [facility] Free T4 [Mass/Vol] 0.97 ng/dL Normal 0.61 - 1. 12 ng/dL [facility].; [place] [employer] [facility]. TSH Qn 2.87 m[IU]/L Normal 0.34 - 5.60 {uIU/ml} [facility].; [place] [employer] [facility]. Laboratory - Microbiology an d Antimicrobial susceptibilityon 08-01-2012 S. pyogenes Ag EIA Ql (Throat) Negative Normal [facility].; [place] [employer] [facility] Laboratory - Microbiology an d Antimicrobial susceptibilityon 07-26-2011 S. pyogenes Ag EIA Ql (Throat) Negative Normal [facility].; [place] [employer] [facility] Laboratory - Microbiology an d Antimicrobial susceptibilityon 10-09-2010 S. pyogenes Ag EIA Ql (Throat) Negative Normal [facility].; [employer] Vital Signs Date Time Vital Sign Value Performing Clinician Facility 05-03-2025 [id number] Body height 165.1 cm Anna Marie GOMEZ Work Phone: [facility] 05-03-2025 [id number] Body mass index (BMI) [Ratio] 30.2 kg/m2 Anna Marie GOMEZ Work Phone: [facility] 05-03-2025 09:28-0400 Body weight 82.55 kg Anna Marie Sales PA Work Phone: [facility] 05-03-2025 09:28-0400 Diastolic blood pressure 81 mm[Hg] Anna Marie Sales PA Work Phone: [facility] 05-03-2025 09:28-0400 Systolic blood pressure 118 mm[Hg] Anna Marie Sales PA Work Phone: [facility] 04-22-2025 15:56-0400 Body height 165.1 cm Anna Marie Sales PA Work Phone: [facility] 04-22-2025 15:56-0400 Body mass index (BMI) [Ratio] 29.7 kg/m2 Anna Marie Sales PA Work Phone: 3(986)731-294693 [place] [address] 04-22-2025 15:56-0400 Body weight 81.19 kg Anna Marie Sales PA Work Phone: 4(851)136-795093 [place] [address] 04-22-2025 15:56-0400 Diastolic blood pressure 81 mm[Hg] Anna Marie Sales PA Work Phone: 8(207)552-338993 [place] [address] 04-22-2025 15:56-0400 Systolic blood pressure 119 mm[Hg] Anna Marie Sales PA Work Phone: [facility] 04-07-2025 12:52-0400 Body height 165.1 cm Anna Marie Sales PA Work Phone: [facility] 04-07-2025 12:52-0400 Body mass index (BMI) [Ratio] 29.3 kg/m2 Anna Marie Sales PA Work Phone: [facility] 04-07-2025 12:52-0400 Body weight 79.91 kg Anna Marie Sales PA Work Phone: [facility] 04-07-2025 12:52-0400 Diastolic blood pressure 80 mm[Hg] Anna Marie Sales PA Work Phone: [facility] 04-07-2025 12:52-0400 Systolic blood pressure 117 mm[Hg] Anna Marie Sales PA Work Phone: [facility] 03-31-2025 09:03-0400 Body height 165.1 cm Anna Marie Sales PA Work Phone: 0(665)566-753793 [place] [address] 03-31-2025 09:01-0400 Body mass index (BMI) [Ratio] 29.8 kg/m2 Anna Marie Sales PA Work Phone: 8(629)151-998293 [place] [address] 03-31-2025 09:01-0400 Body weight 81.33 kg Anna Marie Sales PA Work Phone: 2(723)793-595693 [place] [address] 03-11-2025 15:18-0400 Body height 165.1 cm Anna Marie Sales PA Work Phone: 6(483)687-701180 [address] 03-11-2025 15:12-0400 Body mass index (BMI) [Ratio] 29.1 kg/m2 Anna Marie Sales PA Work Phone: 3(276)568-969093 [place] [address] 03-11-2025 15:12-0400 Body weight 79.46 kg Anna Marie Sales PA Work Phone: 6(354)090-455293 [place] [address] 03-11-2025 15:12-0400 Diastolic blood pressure 86 mm[Hg] Anna Marie Sales PA Work Phone: 1(723)442-583180 [address] 03-11-2025 15:12-0400 Systolic blood pressure 135 mm[Hg] Anna Marie Sales PA Work Phone: 7(790)722-649893 [place] [address] 03-03-2025 19:21-0400 Body temperature 97.5 [degF] Anna Marie Sales PA Work Phone: 5(429)358-967893 [place] [address] 03-03-2025 19:21-0400 Diastolic blood pressure 80 mm[Hg] Anna Marie Sales PA Work Phone: 2(651)973-830893 [place] [address] 03-03-2025 19:21-0400 Heart rate 71 /min Anna Marie Sales PA Work Phone: [facility] 03-03-2025 19:21-0400 SaO2% (BldA) [Mass fraction] 100 % Anna Marie Sales PA Work Phone: 2(509)867-361893 [place] [address] 03-03-2025 19:21-0400 Systolic blood pressure 133 mm[Hg] Anna Marie Sales PA Work Phone: 5(055)402-966393 [place] [address] 03-03-2025 18:25-0400 Body height 165.1 cm Anna Marie Sales PA Work Phone: [facility] 03-03-2025 18:25-0400 Body mass index (BMI) [Ratio] 28.8 kg/m2 Anna Marie Sales PA Work Phone: 5(072)498-888993 [place] [address] 03-03-2025 18:25-0400 Body weight 78.47 kg Anna Marie Sales PA Work Phone: 0(761)717-810180 [address] 02-09-2025 10:58-0400 Body height 165.1 cm Anna Marie Sales PA Work Phone: 9(098)989-901554 [place] [address] 02-09-2025 10:58-0400 Body mass index (BMI) [Ratio] 28.8 kg/m2 Anna Marie Sales PA Work Phone: 7(703)063-674493 [place] [address] 02-09-2025 10:58-0400 Body weight 78.52 kg Anna Marie Sales PA Work Phone: 7(103)269-826793 [place] [address] 02-09-2025 10:58-0400 Diastolic blood pressure 83 mm[Hg] Anna Marie Sales PA Work Phone: 5(342)675-168193 [place] [address] 02-09-2025 10:58-0400 Systolic blood pressure 129 mm[Hg] Anna Marie Sales PA Work Phone: 7(369)070-017293 [place] [address] 01-15-2025 14:30-0400 Body height 165.1 cm Anna Marie Sales PA Work Phone: 2(388)925-140093 [place] [address] 01-15-2025 14:30-0400 Body mass index (BMI) [Ratio] 28.5 kg/m2 Anna Marie Sales PA Work Phone: 4(211)383-820393 [place] [address] 01-15-2025 14:30-0400 Body weight 77.62 kg Anna Marie Sales PA Work Phone: 2(257)685-949793 [place] [address] 01-15-2025 14:30-0400 Diastolic blood pressure 85 mm[Hg] Anna Marie Sales PA Work Phone: [facility] 01-15-2025 14:30-0400 Systolic blood pressure 124 mm[Hg] Anna Marie Sales PA Work Phone: [facility] 01-06-2025 13:56-0400 Diastolic blood pressure 67 mm[Hg] Anna Marie Sales PA Work Phone: 5(385)064-145793 [place] [address] 01-06-2025 13:56-0400 Heart rate 74 /min Anna Marie Sales PA Work Phone: 2(662)156-317593 [place] [address] 01-06-2025 13:56-0400 Respiratory rate 16 /min Anna Marie Sales PA Work Phone: 3(656)893-353893 [place] [address] 01-06-2025 13:56-0400 Systolic blood pressure 122 mm[Hg] Anna Marie Sales PA Work Phone: 2(457)254-440493 [place] [address] 01-06-2025 12:36-0400 Body height 165.1 cm Anna Marie Sales PA Work Phone: 9(083)692-169493 [place] [address] 01-06-2025 12:36-0400 Body mass index (BMI) [Ratio] 27.9 kg/m2 Anna Marie Sales PA Work Phone: 9(453)901-264193 [place] [address] 01-06-2025 12:36-0400 Body temperature 97.1 [degF] Anna Marie Sales PA Work Phone: 3(005)460-329793 [place] [address] 01-06-2025 12:36-0400 Body weight 76.2 kg Anna Marie Sales PA Work Phone: [facility] 01-06-2025 12:36-0400 SaO2% (BldA) [Mass fraction] 99 % Anna Marie Sales PA Work Phone: [facility] 12-23-2024 13:20-0400 Body temperature 96.6 [degF] Anna Marie Sales PA Work Phone: 7(383)768-224193 [place] [address] 12-23-2024 13:20-0400 Diastolic blood pressure 65 mm[Hg] Anna Marie Sales PA Work Phone: [facility] 12-23-2024 13:20-0400 Heart rate 73 /min Anna Marie Sales PA Work Phone: 5(724)030-234793 [place] [address] 12-23-2024 13:20-0400 Respiratory rate 16 /min Anna Marie Sales PA Work Phone: 7(777)448-449093 [place] [address] 12-23-2024 13:20-0400 Systolic blood pressure 125 mm[Hg] Anna Marie Sales PA Work Phone: 5(537)351-198893 [place] [address] 12-23-2024 12:09-0400 Body height 165.1 cm Anna Marie Sales PA Work Phone: 3(321)530-253780 [address] 12-23-2024 12:09-0400 Body mass index (BMI) [Ratio] 27.4 kg/m2 Anna Marie Sales PA Work Phone: 9(679)564-684754 [place] [address] 12-23-2024 12:09-0400 Body weight 74.84 kg Anna Marie Sales PA Work Phone: 6(117)645-993593 [place] [address] 12-23-2024 12:09-0400 SaO2% (BldA) [Mass fraction] 98 % Anna Marie Sales PA Work Phone: 6(486)646-954293 [place] [address] 12-21-2024 15:20-0400 Body height 165.1 cm Anna Marie Sales PA Work Phone: 8(580)623-783654 [place] [address] 12-21-2024 15:20-0400 Body mass index (BMI) [Ratio] 27.4 kg/m2 Anna Marie Sales PA Work Phone: 8(127)775-927293 [place] [address] 12-21-2024 15:20-0400 Body weight 74.84 kg Anna Marie Sales PA Work Phone: 0(821)810-805480 [address] 12-21-2024 15:20-0400 Diastolic blood pressure 86 mm[Hg] Anna Marie Sales PA Work Phone: 9(022)082-017593 [place] [address] 12-21-2024 15:20-0400 Systolic blood pressure 126 mm[Hg] Anna Marie Sales PA Work Phone: [facility] 12-16-2024 10:04-0400 Body height 167.64 cm Lloyd Ramirez Lacy REINOSO [facility], [facility].; [facility]. 12-16-2024 10:04-0400 Body mass index (BMI) [Ratio] 27.12 kg/m2 Lloyd Ashley House [facility], [facility].; [facility]. 12-16-2024 10:04-0400 Body surface area Derived from formula 1.86 m2 Lloyd Ashley House [facility].; [facility]. 12-16-2024 10:04-0400 Body temperature 99.2 [degF] Lloyd Ramirez Lacy [facility].; [place] [employer] [facility]. Comment on above: Method: Tympanic 12-16-2024 10:04-0400 Body weight 76.2 kg Lloyd Ashley House POULTRY TENDER [facility].; [place] [employer] [facility]. 12-16-2024 10:04-0400 Diastolic blood pressure 88 mm[Hg] Lloyd Ashley House [facility].; [place] [facility]. Comment on above: Patient Position: Sitting; Cuff Location : Right Arm; Cuff Size: Standard 12-16-2024 10:04-0400 Heart rate 92 /min Lloyd Ashley House LPN [facility], [facility].; [place] [facility]. Comment on above: Pattern: Regular 12-16-2024 10:04-0400 Systolic blood pressure 130 mm[Hg] Lloyd Ashley House POULTRY TENDER [facility], [facility].; [place] [facility]. Comment on above: Patient Position: Sitting; Cuff Location : Right Arm; Cuff Size: Standard 11-19-2024 08:43-0400 Body mass index (BMI) [Ratio] 28.3 kg/m2 Anna Marie GOMEZ Work Phone: [facility] 11-19-2024 08:43-0400 Body weight 77.28 kg Anna Marie GOMEZ Work Phone: [facility] 11-19-2024 08:43-0400 Diastolic blood pressure 86 mm[Hg] Anna Marie Sales PA Work Phone: [facility] 11-19-2024 08:43-0400 Systolic blood pressure 130 mm[Hg] Anna Marie Sales PA Work Phone: [facility] 11-03-2024 10:46-0400 Body mass index (BMI) [Ratio] 28.3 kg/m2 Anna Marie Sales PA Work Phone: [facility] 11-03-2024 10:46-0400 Body weight 77.28 kg Anna Marie Sales PA Work Phone: [facility] 11-03-2024 10:46-0400 Diastolic blood pressure 76 mm[Hg] Anna Marie Sales PA Work Phone: [facility] 11-03-2024 10:46-0400 Systolic blood pressure 118 mm[Hg] Anna Marie Sales PA Work Phone: [facility] 06-12-2024 10:04-0500 Body height 167.64 cm Madina Jules LPN [facility], [facility].; [facility] 06-12-2024 10:04-0500 Body mass index (BMI) [Ratio] 26.95 kg/m2 Madinakarie Jules POULTRY TENDER [facility], [facility].; [facility] [employer] 06-12-2024 10:04-0500 Body surface area Derived from formula 1.85 m2 Madina Jules LPN [facility].; [facility] [employer] 06-12-2024 10:04-0500 Body weight 75.75 kg Madina Jules LPN [facility], [facility].; [facility], [facility]. 06-12-2024 10:04-0500 Diastolic blood pressure 85 mm[Hg] Madina Jules LPN [facility], [facility].; [facility], [facility]. Comment on above: Patient Position: Sitting; Cuff Location : Left Arm; Cuff Size: Standard 06-12-2024 10:04-0500 Heart rate 73 /min Madina Jules LPN [facility] Comment on above: Pattern: Regular 06-12-2024 10:04-0500 Systolic blood pressure 125 mm[Hg] Madina Jules LPN [facility].; [facility]. Comment on above: Patient Position: Sitting; Cuff Location : Left Arm; Cuff Size: Standard 03-11-2024 07:47-0400 Body weight 71.[address] CROSSING GUARD.MACHINE FEEDER FLOORPERSON Work Phone: [facility] 03-11-2024 07:47-0400 Diastolic blood pressure 80 mm[Hg] Elijah Lyman RO[address] CROSSING GUARD.MACHINE FEEDER FLOORPERSON Work Phone: [facility] 03-11-2024 07:47-0400 Systolic blood pressure 122 mm[Hg] Elijah Lyman [address] CROSSING GUARD.MACHINE FEEDER FLOORPERSON Work Phone: [facility] 11-28-2022 09:13-0400 Body height 167.64 cm Lloyd House LPN [facility], [facility].; [facility], [facility]. 11-28-2022 09:13-0400 Body mass index (BMI) [Ratio] 22.43 kg/m2 Lloyd House LPN [facility], [facility].; [facility], [facility]. 11-28-2022 09:13-0400 Body surface area Derived from formula 1.71 m2 Lloyd House LPN [facility], [facility].; [facility], [facility]. 11-28-2022 09:13-0400 Body weight 63.05 kg Lloyd House LPN [facility], [facility].; [place] [employer], [facility]. 11-28-2022 09:13-0400 Diastolic blood pressure 84 mm[Hg] Lloyd House LPN [facility], [facility].; [employer] [facility], [employer]. Comment on above: Patient Position: Sitting; Cuff Location : Left Arm; Cuff Size: Standard 11-28-2022 09:13-0400 Heart rate 78 /min Lloyd House LPN [facility], [facility].; [employer] Comment on above: Pattern: Regular 11-28-2022 09:13-0400 Systolic blood pressure 122 mm[Hg] Lloyd House LPN [facility].; [employer]. Comment on above: Patient Position: Sitting; Cuff Location : Left Arm; Cuff Size: Standard 07-31-2022 11:01-0500 Body height 167.64 cm Maya Maxwell MA [facility].; [employer]. 07-31-2022 11:01-0500 Body mass index (BMI) [Ratio] 21.63 kg/m2 Maya Maxwell MA [facility].; [employer]. 07-31-2022 11:01-0500 Body surface area Derived from formula 1.69 m2 Maya Maxwell MA [facility].; [place] [employer]. 07-31-2022 11:01-0500 Body temperature 97.9 [degF] Maya Maxwell MA [facility].; [employer] Comment on above: Method: Tympanic 07-31-2022 11:01-0500 Body weight 60.78 kg Maya Maxwell MA [facility].; [employer] 07-31-2022 11:01-0500 Diastolic blood pressure 87 mm[Hg] Maya Maxwell MA [facility].; [employer] Comment on above: Patient Position: Sitting; Cuff Location : Left Arm; Cuff Size: Standard 07-31-2022 11:01-0500 Heart rate 125 /min Maya Maxwell MA [facility].; [employer] Comment on above: Pattern: Regular 07-31-2022 11:01-0500 Inhaled oxygen concentration 20 % Maya Maxwell MA [facility].; [employer] Comment on above: Room air 07-31-2022 11:01-0500 Inhaled oxygen concentration 21 % Maya Maxwell MA [facility].; [employer] Comment on above: Room air 07-31-2022 11:01-0500 SaO2% (BldA) [Mass fraction] 98 % Maya Maxwell MA [facility].; [employer] 07-31-2022 11:01-0500 Systolic blood pressure 126 mm[Hg] Maya Maxwell MA [facility] CampusMediam[facility] [employer].; [place] [employer]. Comment on above: Patient Position: Sitting; Cuff Location : Left Arm; Cuff Size: Standard 01-29-2022 11:15-0400 Body height 167.64 cm Sandra Longoria MA [facility], [facility].; [place] [employer] 01-29-2022 11:15-0400 Body mass index (BMI) [Ratio] 20.98 kg/m2 Sandra Longoria MA [facility].; [facility]. 01-29-2022 11:150400 Body surface area Derived from formula 1.67 m2 Sandra Longoria MA [facility]Med[facility].; [place] [employer] [facility], [facility]. 01-29-2022 11:150400 Body weight 58.97 kg Sandra Longoria MA [facility].; [place] [employer] [facility], [employer]. 01-29-2022 11:15-0400 Diastolic blood pressure 84 mm[Hg] Sandra Longoria MA [facility].; [employer] Comment on above: Patient Position: Sitting; Cuff Location : Left Arm; Cuff Size: Standard 01-29-2022 11:15-0400 Heart rate 84 /min Sandra Longoria MA [facility], [facility].; [employer] Comment on above: Pattern: Regular 01-29-2022 11:15-0400 Systolic blood pressure 119 mm[Hg] Sandra Longoria MA [facility].; [place] [employer]. Comment on above: Patient Position: Sitting; Cuff Location : Left Arm; Cuff Size: Standard 12-08-2021 14:08-0400 Body height 167.64 cm Lloyd House LPN [facility].; [place] [employer]. 12-08-2021 14:08-0400 Body mass index (BMI) [Ratio] 20.98 kg/m2 Lloyd House LPN [facility], [employer].; [place] [employer]. 12-08-2021 14:08-0400 Body surface area Derived from formula 1.67 m2 Lloyd M Lacy [facility].; [place] [facility]. 12-08-2021 14:08-0400 Body weight 58.97 kg Lloyd Balabach [facility], [facility].; [place] [facility]. 12-08-2021 14:08-0400 Diastolic blood pressure 80 mm[Hg] Lloyd Balabach [facility], [facility].; [employer] Comment on above: Patient Position: Sitting; Cuff Location : Left Arm; Cuff Size: Standard 12-08-2021 14:08-0400 Heart rate 97 /min Lloyd Balabach [facility], [facility] [place] [employer]. Comment on above: Pattern: Regular 12-08-2021 14:08-0400 Systolic blood pressure 122 mm[Hg] Lloyd Balabach [facility].; [employer] Comment on above: Patient Position: Sitting; Cuff Location : Left Arm; Cuff Size: Standard 06-09-2021 10:37-0500 Body height 166.37 cm Lloyd Ramirez Lacy [facility], [facility].; [place] [employer]. 06-09-2021 10:37-0500 Body mass index (BMI) [Ratio] 21.3 kg/m2 Lloyd Balabach [facility], [facility].; [employer] 06-09-2021 10:37-0500 Body surface area Derived from formula 1.66 m2 Lloyd Ashley Lacy POULTRY TENDER [facility], [facility].; [place] [employer]. 06-09-2021 10:37-0500 Body temperature 99.3 [degF] Lloyd Balabach [facility], [facility].; [employer] Comment on above: Method: Tympanic 06-09-2021 10:37-0500 Body weight 58.97 kg Lloyd Ramirez Lacy [facility], [facility].; [employer] 06-09-2021 10:37-0500 Diastolic blood pressure 84 mm[Hg] Lloyd Ramirez Lacy [facility].; [employer] Comment on above: Patient Position: Sitting; Cuff Location : Left Arm; Cuff Size: Standard 06-09-2021 10:37-0500 Heart rate 78 /min Lloyd House POULTRY TENDER [facility], [facility].; [facility]. Comment on above: Pattern: Regular 06-09-2021 10:37-0500 Inhaled oxygen concentration 20 % Lloyd Ashley Lacy [facility], [facility].; [facility] Inc. Comment on above: Room air 06-09-2021 10:37-0500 Inhaled oxygen concentration 21 % Lloyd House [facility].; [place] [employer]. Comment on above: Room air 06-09-2021 10:37-0500 SaO2% (BldA) [Mass fraction] 98 % Lloyd Ramirez Lacy [facility], [facility].; [facility] [employer]. 06-09-2021 10:37-0500 Systolic blood pressure 122 mm[Hg] Lloyd House [facility], [facility].; [place] [employer]. Comment on above: Patient Position: Sitting; Cuff Location : Left Arm; Cuff Size: Standard 02-17-2021 08:50-0400 Body height 166.37 cm Sandra Gauthier LPN [facility], [facility].; [facility], [facility]. 02-17-2021 08:50-0400 Body mass index (BMI) [Ratio] 20.81 kg/m2 Sandra Gauthier LPN [facility], [facility].; [facility], [facility]. 02-17-2021 08:50-0400 Body surface area Derived from formula 1.64 m2 Sandra Gauthier LPN [facility], [facility].; [facility]. 02-17-2021 08:50-0400 Body temperature 98.4 [degF] Sandra Gauthier [facility], [facility].; [place] [facility]. Comment on above: Method: Tympanic 02-17-2021 08:50-0400 Body weight 57.61 kg Sandra Gauthier LPN [facility], [facility].; [facility]. 02-17-2021 08:50-0400 Diastolic blood pressure 78 mm[Hg] Sandra Gauthier LPN [facility], Inc.; [employer], [employer]. Comment on above: Patient Position: Sitting; Cuff Location : Left Arm; Cuff Size: Standard 02-17-2021 08:50-0400 Heart rate 60 /min Sandra Gauthier LPN [facility], [facility].; [employer] Comment on above: Pattern: Regular 02-17-2021 08:50-0400 Systolic blood pressure 117 mm[Hg] Sandra Gauthier LPN [facility], [facility].; [employer], [employer]. Comment on above: Patient Position: Sitting; Cuff Location : Left Arm; Cuff Size: Standard 08-05-2020 14:59-0500 Body height 166.37 cm Neilee L Viv [facility].; [employer] 08-05-2020 14:59-0500 Body mass index (BMI) [Percentile] Per age and sex 52 % Neilee L Vess [employer] TENDER [facility], [facility].; [place] [employer], [facility]. 08-05-2020 14:59-0500 Body mass index (BMI) [Ratio] 21.8 kg/m2 Neilee L Vess [employer] [facility], Inc.; [employer] 08-05-2020 14:59-0500 Body surface area Derived from formula 1.67 m2 Neilee L Vess P[employer] T[employer]ER [facility], [facility].; [employer] 08-05-2020 14:59-0500 Body temperature 98.7 [degF] Neilee L Vess P[employer]LTRY TENDER [place] [facility], Inc.; [employer], [employer]. Comment on above: Method: Tympanic 08-05-2020 14:59-0500 Body weight 60.33 kg Neilee L Vess [employer]ER [place] [facility], Inc.; [employer], [employer]. 08-05-2020 14:59-0500 Diastolic blood pressure 91 mm[Hg] Neilee L Vess [employer]ER [place] [facility], Inc.; [employer], [employer]. Comment on above: Patient Position: Sitting; Cuff Location : Right Arm; Cuff Size: Standard 08-05-2020 14:59-0500 Heart rate 76 /min Neilee L Vess POULTRY TENDER [employer].; [employer]. Comment on above: Pattern: Regular 08-05-2020 14:59-0500 Systolic blood pressure 135 mm[Hg] Jaziel Nam POULTRY TENDER [employer], [employer].; [employer], [employer]. Comment on above: Patient Position: Sitting; Cuff Location : Right Arm; Cuff Size: Standard 08-18-2019 13:40-0500 Body height 166.37 cm Jaziel Nam [facility] [employer], [employer].; [employer], [employer]. 08-18-2019 13:40-0500 Body mass index (BMI) [Percentile] Per age and sex 46 % Jaziel Nam [facility], Inc.; [employer], [employer]. 08-18-2019 13:40-0500 Body mass index (BMI) [Ratio] 21.14 kg/m2 Anastasiiae Nereyda Nam [facility] Center[facility], Inc.; [employer], [employer]. 08-18-2019 13:40-0500 Body surface area Derived from formula 1.65 m2 Anastasiiae Nereyda Nam [facility] Center[facility], Inc.; [employer], [employer]. 08-18-2019 13:40-0500 Body temperature 99 [degF] Jaziel Nam [facility], Inc.; [employer], [employer]. Comment on above: Method: Tympanic 08-18-2019 13:40-0500 Body weight 58.51 kg Jaziel Nam [facility], Inc.; [employer] 06-08-2019 09:01-0500 Body height 166.37 cm Rita English LPN [employer], [employer]. 06-08-2019 09:01-0500 Body temperature 98.5 [degF] Rita English [facility], [employer].; [employer], [employer]. Comment on above: Method: Tympanic 06-08-2019 09:01-0500 Diastolic blood pressure 85 mm[Hg] Rita English [facility], Inc.; [employer]. Comment on above: Patient Position: Sitting; Cuff Location : Left Arm; Cuff Size: Standard 06-08-2019 09:01-0500 Heart rate 90 /min Rita Wekwame REINOSO [employer]. Comment on above: Pattern: Regular 06-08-2019 09:01-0500 Systolic blood pressure 119 mm[Hg] Rita Wekwame POULTRY TENDER [employer], [employer].; [employer] Comment on above: Patient Position: Sitting; Cuff Location : Left Arm; Cuff Size: Standard 10-30-2018 08:110400 Body temperature 98 [degF] Rita Rahmankwame POULTRY TENDER [employer].; [employer]. Comment on above: Method: Tympanic 10-30-2018 08:110400 Body weight 53.52 kg Rita Wekwame REINOSO [employer], [employer].; [employer] 10-30-2018 08:110400 Inhaled oxygen concentration 20 % Rita English POULTRY TENDER [employer]. Comment on above: Room air 10-30-2018 08:110400 Inhaled oxygen concentration 21 % Rita Wekwame [employer].; [employer]. Comment on above: Room air 10-30-2018 08:110400 SaO2% (BldA) [Mass fraction] 97 % Rita English LPN [employer], [employer] 06-20-2018 10:07-0500 Body height 166.37 cm Rita English LPN [employer].; [employer]. 06-20-2018 10:07-0500 Body mass index (BMI) [Percentile] Per age and sex 41 % Rita English LPN [employer] 06-20-2018 10:07-0500 Body mass index (BMI) [Ratio] 20.41 kg/m2 Rita English LPN [employer], [employer]. 06-20-2018 10:07-0500 Body surface area Derived from formula 1.63 m2 Rita Juddchery REINOSO [employer].; [employer]. 06-20-2018 10:07-0500 Body temperature 99 [degF] Rita English [facility].; [employer]. Comment on above: Method: Tympanic 06-20-2018 10:07-0500 Body weight 56.5 kg Rita Juddchery [facility] CenterGloss48 Inc.; [employer]. 06-20-2018 10:07-0500 Heart rate 84 /min Rita Juddchery [facility] Center[facility] Technology Ltd.; [employer]. Comment on above: Pattern: Regular 06-20-2018 10:07-0500 Inhaled oxygen concentration 20 % Rita Juddchery [facility] Center[facility] Ltd.; [employer]. Comment on above: Room air 06-20-2018 10:07-0500 Inhaled oxygen concentration 21 % Rita English [facility] Center[facility] Ltd.; [employer]. Comment on above: Room air 06-20-2018 10:07-0500 SaO2% (BldA) [Mass fraction] 98 % Rita English [facility] Center[facility] Ltd.; [employer]. 04-22-2018 09:59-0400 Body height 166.37 cm [employer] Work Phone: [employer].; [employer]. 04-22-2018 09:59-0400 Body mass index (BMI) [Percentile] Per age and sex 45 % [employer] PA-C Work Phone: [employer]; [employer]. 04-22-2018 09:59-0400 Body mass index (BMI) [Ratio] 20.65 kg/m2 [employer] PA-C Work Phone: [employer].; [employer]. 04-22-2018 09:59-0400 Body surface area Derived from formula 1.63 m2 Anna Marie Sales PA-C Work Phone: [employer]; [employer] 04-22-2018 09:59-0400 Body temperature 99.2 [degF] Anna Marie Sales PA-C Work Phone: [employer]; [employer]. 04-22-2018 09:59-0400 Body weight 57.15 kg Anna Marie Sales PA-C Work Phone: [employer]; [employer] 04-22-2018 09:59-0400 Inhaled oxygen concentration 20 % Anna Marie Sales PA-C Work Phone: [employer]; [employer]. Comment on above: Room air 04-22-2018 09:59-0400 Inhaled oxygen concentration 21 % Anna Marie Sales PA-C Work Phone: [employer]; [employer]. Comment on above: Room air 04-22-2018 09:59-0400 SaO2% (BldA) [Mass fraction] 97 % Anna Marie Sales PA-C Work Phone: [employer]; [employer] 04-14-2018 14:59-0400 Body height 166.37 cm Conchita Hawthorne RN [employer].; [employer]. 04-14-2018 14:59-0400 Body mass index (BMI) [Percentile] Per age and sex 45 % Conchita Hawthorne RN [employer].; [employer]. 04-14-2018 14:59-0400 Body mass index (BMI) [Ratio] 20.66 kg/m2 Conchita Hawthorne RN [employer].; [employer]. 04-14-2018 14:59-0400 Body surface area Derived from formula 1.64 m2 Conchita Hawthorne RN [employer].; [employer]. 04-14-2018 14:59-0400 Body temperature 99.3 [degF] Conchita Hawthorne RN [place] [employer]. Comment on above: Method: Tympanic 04-14-2018 14:59-0400 Body weight 57.2 kg Conchita Hawthorne RN [place] [employer], [employer].; [employer]. 01-28-2018 09:25-0400 Body height 309.88 cm Neilee L Vess POULTRY TENDER [employer].; [employer]. 01-28-2018 09:25-0400 Body mass index (BMI) [Percentile] Per age and sex 0 % Neilee L Vess POULTRY TENDER [employer]os[employer], [employer].; [employer], [employer]. 01-28-2018 09:25-0400 Body mass index (BMI) [Ratio] 3.09 kg/m2 Neilee L Vess POULTRY TENDER [employer], [employer].; [employer]. 01-28-2018 09:25-0400 Body surface area Derived from formula 1.94 m2 Neilee L Vess POULTRY TENDER [employer]os[employer], [employer].; [employer], [employer]. 01-28-2018 09:25-0400 Body weight 29.71 kg Neilee L Vess POULTRY TENDER [employer], [employer].; [employer]. 01-28-2018 09:25-0400 Diastolic blood pressure 67 mm[Hg] Neilee L Vess POULTRY TENDER [employer], [employer].; [employer]. Comment on above: Patient Position: Sitting; Cuff Location : Left Arm; Cuff Size: Standard 01-28-2018 09:25-0400 Heart rate 67 /min Neilee L Vess POUL[employer] TENDER [employer].; [employer]. Comment on above: Pattern: Regular 01-28-2018 09:25-0400 Systolic blood pressure 107 mm[Hg] Neilee L Vess POULTRY TENDER [employer], [employer]. Comment on above: Patient Position: Sitting; Cuff Location : Left Arm; Cuff Size: Standard 11-06-2016 08:32-0400 Body temperature 98.8 [degF] Neilee L Vess POULTRY TENDER [employer], [employer].; [employer]. Comment on above: Method: Tympanic 11-06-2016 08:32-0400 Body weight 55.79 kg Neilee L Vess P[employer]ER [employer].; [employer]. 11-06-2016 08:32-0400 Diastolic blood pressure 88 mm[Hg] Neilee L Vess POULTRY T[employer]ER [employer].; [employer]. Comment on above: Patient Position: Sitting; Cuff Location : Right Arm; Cuff Size: Standard 11-06-2016 08:32-0400 Heart rate 70 /min Neilee L Vess P[employer]ER [employer].; [employer]. Comment on above: Pattern: Regular 11-06-2016 08:32-0400 Systolic blood pressure 141 mm[Hg] Neilee L Vess POUL[employer] T[employer]ER [employer].; [employer]. Comment on above: Patient Position: Sitting; Cuff Location : Right Arm; Cuff Size: Standard 10-18-2016 14:55-0400 Body height 166.37 cm Conchita Hawthorne RN [employer].; [employer]. 10-18-2016 14:55-0400 Body mass index (BMI) [Percentile] Per age and sex 50 % Conchita Hawthorne RN [employer].; [employer]. 10-18-2016 14:55-0400 Body mass index (BMI) [Ratio] 20.37 kg/m2 Conchita aHwthorne RN [employer].; [employer]. 10-18-2016 14:55-0400 Body surface area Derived from formula 1.63 m2 Conchita Hawthorne RN [employer].; [employer]. 10-18-2016 14:55-0400 Body temperature 98.2 [degF] Conchita Hawthorne RN [employer].; [employer]. Comment on above: Method: Tympanic 10-18-2016 14:55-0400 Body weight 56.38 kg Conchita Hawthorne RN [employer].; [employer]. 10-04-2016 14:42-0400 Body height 166.37 cm Conchita Hawthorne RN [employer].; [employer]. 10-04-2016 14:42-0400 Body mass index (BMI) [Percentile] Per age and sex 48 % Conchita Hawthorne RN [employer].; [employer]. 10-04-2016 14:42-0400 Body mass index (BMI) [Ratio] 20.16 kg/m2 Conchita Hawthorne RN [employer].; [employer]. 10-04-2016 14:42-0400 Body surface area Derived from formula 1.62 m2 Conchita Hawthorne RN [employer].; [employer]. 10-04-2016 14:42-0400 Body temperature 99.8 [degF] Conchita Hawthorne RN [employer].; [employer]. Comment on above: Method: Tympanic 10-04-2016 14:42-0400 Body weight 55.79 kg Conchita Hawthorne RN [employer].; [employer]. 05-09-2016 13:18-0400 Body height 166.37 cm Conchita Hawthorne RN [employer].; [employer]. 05-09-2016 13:18-0400 Body mass index (BMI) [Percentile] Per age and sex 43 % Conchita Hawthorne RN [employer].; [employer]. 05-09-2016 13:18-0400 Body mass index (BMI) [Ratio] 19.62 kg/m2 Conchita Hawthorne RN [employer].; [employer]. 05-09-2016 13:18-0400 Body surface area Derived from formula 1.6 m2 Conchita Hawthorne RN [employer].; [employer]. 05-09-2016 13:18-0400 Body temperature 99.3 [degF] Conchita Hawthorne RN [employer].; [employer]. Comment on above: Method: Tympanic 05-09-2016 13:18-0400 Body weight 54.3 kg Conchita Hawthorne RN [employer].; [employer]. 05-09-2016 13:18-0400 Heart rate 118 /min Conchita Hawthorne RN [employer]. Comment on above: Pattern: Regular 05-09-2016 13:18-0400 Inhaled oxygen concentration 20 % Conchita Hawthorne RN [employer]. Comment on above: Room air 05-09-2016 13:18-0400 Inhaled oxygen concentration 21 % Conchita Hawthorne RN [employer]. Comment on above: Room air 05-09-2016 13:18-0400 SaO2% (BldA) [Mass fraction] 97 % Conchita Hawthorne RN [employer]. 04-04-2016 10:44-0400 Body height 166.37 cm Mandi Maldonado RN Work Phone: [employer]. 04-04-2016 10:44-0400 Body mass index (BMI) [Percentile] Per age and sex 40 % Mandi Maldonado RN Work Phone: [employer]. 04-04-2016 10:44-0400 Body mass index (BMI) [Ratio] 19.34 kg/m2 Mandi Maldonado RN Work Phone: [employer]. 04-04-2016 10:44-0400 Body surface area Derived from formula 1.59 m2 Mandi Maldonado RN Work Phone: [employer]. 04-04-2016 10:44-0400 Body temperature 99.1 [degF] Mandi Maldonado RN Work Phone: [employer].; [employer]. Comment on above: Method: Tympanic 04-04-2016 10:44-0400 Body weight 53.52 kg Mandi Maldonado RN Work Phone: [employer].; [employer]. 04-04-2016 10:44-0400 Inhaled oxygen concentration 20 % Mandi Maldonado RN Work Phone: [employer]. Comment on above: Room air 04-04-2016 10:44-0400 Inhaled oxygen concentration 21 % Mandi Maldonado RN Work Phone: [employer]; [employer]. Comment on above: Room air 04-04-2016 10:44-0400 SaO2% (BldA) [Mass fraction] 99 % Mandi Maldonado RN Work Phone: [employer].; [employer]. 03-21-2016 10:53-0400 Body height 165.74 cm Conchita Hawthorne RN [employer]. 03-21-2016 10:53-0400 Body mass index (BMI) [Percentile] Per age and sex 49 % Conchita Hawthorne RN [employer]. 03-21-2016 10:53-0400 Body mass index (BMI) [Ratio] 19.96 kg/m2 Conchita Hawthorne RN [employer]. 03-21-2016 10:53-0400 Body surface area Derived from formula 1.6 m2 Conchita Hawthorne RN [employer]. 03-21-2016 10:53-0400 Body temperature 98 [degF] Conchita Hawthorne RN [employer]. Comment on above: Method: Tympanic 03-21-2016 10:53-0400 Body weight 54.84 kg Conchita Hawthorne RN [employer].; [employer]. 03-21-2016 10:53-0400 Diastolic blood pressure 73 mm[Hg] Conchita Hawthorne RN [employer].; [employer]. Comment on above: Patient Position: Sitting; Cuff Location : Left Arm; Cuff Size: Standard 03-21-2016 10:53-0400 Heart rate 59 /min Conchita Hawthorne RN [employer].; [employer]. Comment on above: Pattern: Regular 03-21-2016 10:53-0400 Systolic blood pressure 112 mm[Hg] Conchita Hawthorne RN [employer].; [employer]. Comment on above: Patient Position: Sitting; Cuff Location : Left Arm; Cuff Size: Standard 11-07-2015 11:47-0400 Body height 163.83 cm Anna Marie Sales PA-C Work Phone: [employer]; [employer]. 11-07-2015 11:47-0400 Body mass index (BMI) [Percentile] Per age and sex 44 % Anna Marie Sales PA-C Work Phone: [employer]; [employer]. 11-07-2015 11:47-0400 Body mass index (BMI) [Ratio] 19.43 kg/m2 Anna Marie Sales PA-C Work Phone: [employer]; [employer]. 11-07-2015 11:47-0400 Body surface area Derived from formula 1.55 m2 Anna Marie Sales PA-C Work Phone: [employer]; [employer]. 11-07-2015 11:47-0400 Body temperature 99.6 [degF] Anna Marie Sales PA-C Work Phone: [employer]; [employer]. Comment on above: Method: Tympanic 11-07-2015 11:47-0400 Body weight 52.16 kg Anna Marie Sales PA-C Work Phone: [employer]; [employer]. 11-07-2015 11:47-0400 Diastolic blood pressure 66 mm[Hg] Anna Marie Sales PA-C Work Phone: [employer]; [employer]. Comment on above: Patient Position: Sitting; Cuff Location : Right Arm; Cuff Size: Standard 11-07-2015 11:47-0400 Heart rate 69 /min Anna Marie Sales PA-C Work Phone: [employer]; [employer]. Comment on above: Pattern: Regular 11-07-2015 11:47-0400 Systolic blood pressure 128 mm[Hg] Anna Marie Sales PA-C Work Phone: [place] [employer]; [employer]. Comment on above: Patient Position: Sitting; Cuff Location : Right Arm; Cuff Size: Standard 02-09-2015 14:51-0400 Body height 164.47 cm Conchita Hawthorne RN [employer].; [employer]. 02-09-2015 14:51-0400 Body mass index (BMI) [Percentile] Per age and sex 41 % Conchita Hawthorne RN [employer]. 02-09-2015 14:51-0400 Body mass index (BMI) [Ratio] 18.78 kg/m2 Conchita Hawthorne RN [employer]. 02-09-2015 14:51-0400 Body surface area Derived from formula 1.54 m2 Conchita Hawthorne RN [employer].; [employer]. 02-09-2015 14:51-0400 Body temperature 98.4 [degF] Conchita Hawthorne RN [employer]. Comment on above: Method: Tympanic 02-09-2015 14:51-0400 Body weight 50.8 kg Conchita Hawthorne RN [employer]. 02-09-2015 14:51-0400 Diastolic blood pressure 62 mm[Hg] Conchita Hawthorne RN [employer]. Comment on above: Patient Position: Sitting; Cuff Location : Left Arm; Cuff Size: Standard 02-09-2015 14:51-0400 Heart rate 62 /min Conchita Hawthorne RN [employer]. Comment on above: Pattern: Regular 02-09-2015 14:51-0400 Systolic blood pressure 104 mm[Hg] Conchita Hawthorne RN [employer]. Comment on above: Patient Position: Sitting; Cuff Location : Left Arm; Cuff Size: Standard 11-13-2013 08:09-0400 Body height 162.56 cm Rita Wekwame REINOSO [place] [employer] [facility], [facility].; [employer] 11-13-2013 08:09-0400 Body mass index (BMI) [Percentile] Per age and sex 31 % Rita Wekwame [employer] [place] [employer], Inc.; [employer] 11-13-2013 08:09-0400 Body mass index (BMI) [Ratio] 17.38 kg/m2 Rita Wekwame [employer]OULTRY TENDER [place] [employer].; [employer], [employer]. 11-13-2013 08:09-0400 Body surface area Derived from formula 1.46 m2 Rita Wekwame [facility] [employer], [employer].; [employer], [employer]. 11-13-2013 08:09-0400 Body temperature 98.3 [degF] Ritaaidan Juddchery [facility] [employer].; [employer]. Comment on above: Method: Tympanic 11-13-2013 08:09-0400 Body weight 45.93 kg Rita Rahmankwame [facility] CenterLegal[facility], [employer].; [employer] 01-30-2013 11:02-0400 Body height 158.75 cm Mandi Maldonado RN Work Phone: [employer].; [employer]. 01-30-2013 11:02-0400 Body mass index (BMI) [Percentile] Per age and sex 28 % Mandi Maldonado RN Work Phone: [employer].; [employer], [employer] 01-30-2013 11:02-0400 Body mass index (BMI) [Ratio] 16.74 kg/m2 Mandi Maldonado RN Work Phone: [employer].; [employer] 01-30-2013 11:02-0400 Body surface area Derived from formula 1.39 m2 Mandi Maldonado RN Work Phone: [place] [employer].; [employer]. 01-30-2013 11:02-0400 Body weight 42.18 kg Mandi Maldonado RN Work Phone: [place] [employer].; [employer]. 01-30-2013 11:02-0400 Diastolic blood pressure 70 mm[Hg] Mandi Maldonado RN Work Phone: [place] [employer]. Comment on above: Patient Position: Sitting; Cuff Location : Right Arm; Cuff Size: Standard 01-30-2013 11:02-0400 Heart rate 70 /min Mandi Maldonado RN Work Phone: [place] [employer]. Comment on above: Pattern: Regular 01-30-2013 11:02-0400 Systolic blood pressure 109 mm[Hg] Mandi Maldonado RN Work Phone: [place] [employer]. Comment on above: Patient Position: Sitting; Cuff Location : Right Arm; Cuff Size: Standard 08-01-2012 08:43-0500 Body height 152.4 cm Rita English LPN [place] [facility] [employer]. 08-01-2012 08:43-0500 Body mass index (BMI) [Percentile] Per age and sex 61 % Rita English LPN [place] [facility].; [employer]. 08-01-2012 08:43-0500 Body mass index (BMI) [Ratio] 18.6 kg/m2 Rita English POULTRY TENDER [place] [employer]. 08-01-2012 08:43-0500 Body surface area Derived from formula 1.36 m2 Rita English POULTRY TENDER [place] [employer]. 08-01-2012 08:43-0500 Body temperature 98 [degF] Rita English [facility].; [employer]. Comment on above: Method: Tympanic 08-01-2012 08:43-0500 Body weight 43.21 kg Rita English LPN [place] [employer] 08-01-2012 08:43-0500 Inhaled oxygen concentration 20 % Rita English ARLETH [employer] [facility].; [employer] Comment on above: Room air 08-01-2012 08:43-0500 Inhaled oxygen concentration 21 % Rita English [facility]OULTRY TENDERChristus [facility] Center[facility].; [employer] Comment on above: Room air 08-01-2012 08:43-0500 SaO2% (BldA) [Mass fraction] 99 % Rita English POULTRY TENDER [employer] [facility].; [employer] 05-07-2012 08:39-0400 Body height 152.4 cm Anna Marie Sales PA-C Work Phone: [employer] 05-07-2012 08:39-0400 Body mass index (BMI) [Percentile] Per age and sex 39 % Anna Marie Sales PA-C Work Phone: [employer]. 05-07-2012 08:39-0400 Body mass index (BMI) [Ratio] 16.99 kg/m2 Anna Marie Sales PA-C Work Phone: [employer]. 05-07-2012 08:39-0400 Body surface area Derived from formula 1.31 m2 Anna Marie Sales PA-C Work Phone: [employer]. 05-07-2012 08:39-0400 Body temperature 98.8 [degF] Anna Marie Sales PA-C Work Phone: [employer].; [employer]. Comment on above: Method: Tympanic 05-07-2012 08:39-0400 Body weight 39.46 kg Anna Marie Sales PA-C Work Phone: [employer].; [employer]. 05-07-2012 08:39-0400 Inhaled oxygen concentration 20 % Anna Marie Sales PA-C Work Phone: [place] [facility].; [employer]. Comment on above: Room air 05-07-2012 08:39-0400 Inhaled oxygen concentration 21 % Anna Marie Sales PA-C Work Phone: [employer] [facility].; [employer]. Comment on above: Room air 05-07-2012 08:39-0400 SaO2% (BldA) [Mass fraction] 99 % Anna Marie Sales PA-C Work Phone: [place] [facility].; [employer]. 04-30-2012 08:33-0400 Body height 152.4 cm Lloyd Ashley House [facility].; [employer]. 04-30-2012 08:33-0400 Body mass index (BMI) [Percentile] Per age and sex 39 % Lloyd Ashley House [facility].; [employer]. 04-30-2012 08:33-0400 Body mass index (BMI) [Ratio] 16.99 kg/m2 Lloyd Ashley Lacy [facility].; [employer]. 04-30-2012 08:33-0400 Body surface area Derived from formula 1.31 m2 Lloyd Ashley House [facility].; [employer]. 04-30-2012 08:33-0400 Body temperature 99.8 [degF] Lloyd House [facility].; [employer]. Comment on above: Method: Tympanic 04-30-2012 08:33-0400 Body weight 39.46 kg Lloyd House POULTRY TENDER [place] [facility].; [employer]. 11-22-2011 13:28-0400 Body height 149.86 cm Kristin Pérez LPN Work Phone: [employer]. 11-22-2011 13:28-0400 Body mass index (BMI) [Percentile] Per age and sex 46 % Kristin Pérez LPN Work Phone: [employer]; [employer]. 11-22-2011 13:28-0400 Body mass index (BMI) [Ratio] 17.17 kg/m2 Kristin Pérez LPN Work Phone: [employer]; [employer]. 11-22-2011 13:28-0400 Body surface area Derived from formula 1.28 m2 Kristin Pérez LPN Work Phone: [employer]; [employer]. 11-22-2011 13:28-0400 Body temperature 98.7 [degF] Kristin Pérez LPN Work Phone: [employer]; [employer]. Comment on above: Method: Tympanic 11-22-2011 13:28-0400 Body weight 38.56 kg Kristin Pérez LPN Work Phone: [employer]; [employer]. 11-22-2011 13:28-0400 Heart rate 98 /min Kristin Pérez LPN Work Phone: [employer]; [employer]. Comment on above: Pattern: Regular 11-22-2011 13:28-0400 Inhaled oxygen concentration 20 % Kristin Pérez LPN Work Phone: [employer]; [employer]. Comment on above: Room air 11-22-2011 13:28-0400 Inhaled oxygen concentration 21 % Kristin Pérez LPN Work Phone: [employer]; [employer]. Comment on above: Room air 11-22-2011 13:28-0400 SaO2% (BldA) [Mass fraction] 97 % Kristin Pérez LPN Work Phone: [employer]; [employer]. 07-26-2011 08:48-0500 Body height 146.05 cm Conchita Hawthorne RN [employer]. 07-26-2011 08:48-0500 Body mass index (BMI) [Percentile] Per age and sex 56 % Conchita Hawthorne RN [employer]. 07-26-2011 08:48-0500 Body mass index (BMI) [Ratio] 17.61 kg/m2 Conchita Hawthorne RN [employer]. 07-26-2011 08:48-0500 Body surface area Derived from formula 1.24 m2 Conchita Hawthorne RN [employer]. 07-26-2011 08:48-0500 Body temperature 97 [degF] Conchita Hawthorne RN [employer]. Comment on above: Method: Tympanic 07-26-2011 08:48-0500 Body weight 37.56 kg Conchita Hawthorne RN [employer]. 06-26-2011 15:45-0500 Body height 146.05 cm Neilee L Vess POULTRY TENDER [employer]. 06-26-2011 15:45-0500 Body mass index (BMI) [Percentile] Per age and sex 61 % Neilee L Vess POULTRY TENDER [employer]. 06-26-2011 15:45-0500 Body mass index (BMI) [Ratio] 17.86 kg/m2 Neilee L Vess POULTRY TENDER [employer]. 06-26-2011 15:45-0500 Body surface area Derived from formula 1.25 m2 Neilee L Vess POULTRY TENDER [employer].; [employer]. 06-26-2011 15:45-0500 Body temperature 98.6 [degF] Neilee L Vess POULTRY TENDER [employer]. 06-26-2011 15:45-0500 Body weight 38.1 kg Neilee L Vess POULTRY TENDER [employer]. 05-30-2011 08:40-0500 Body height 148.59 cm Lloyd House [facility].; [employer] [facility]. 05-30-2011 08:40-0500 Body mass index (BMI) [Percentile] Per age and sex 35 % Lloyd House [facility].; [employer] [facility]. 05-30-2011 08:40-0500 Body mass index (BMI) [Ratio] 16.23 kg/m2 Lloyd House [facility].; [employer] [facility]. 05-30-2011 08:40-0500 Body surface area Derived from formula 1.23 m2 [facility].; [employer] [facility]. 05-30-2011 08:40-0500 Body temperature 97.3 [degF] Lloyd Ramirez Lacy [facility].; [employer] Comment on above: Method: Tympanic 05-30-2011 08:40-0500 Body weight 35.83 kg Lloyd House [facility].; [employer] 05-17-2011 08:59-0400 Body height 146.05 cm Ángela Chery ezCater PA-C Work Phone: [place] [facility].; [employer] 05-17-2011 08:59-0400 Body mass index (BMI) [Percentile] Per age and sex 37 % Ángela D ezCater PA-C Work Phone: [place] [facility].; [employer] 05-17-2011 08:59-0400 Body mass index (BMI) [Ratio] 16.33 kg/m2 KPA Chery ezCater PA-C Work Phone: [employer] 05-17-2011 08:59-0400 Body surface area Derived from formula 1.21 m2 Take the Interview PA-C Work Phone: [employer] [facility].; [employer] 05-17-2011 08:59-0400 Body temperature 98.3 [degF] Take the Interview PA-C Work Phone: [employer]; [employer]. Comment on above: Method: Tympanic 05-17-2011 08:59-0400 Body weight 34.84 kg Take the Interview PA-C Work Phone: [employer]; [employer]. 05-17-2011 08:59-0400 Inhaled oxygen concentration 20 % Take the Interview PA-C Work Phone: [employer]; [employer]. Comment on above: Room air 05-17-2011 08:59-0400 Inhaled oxygen concentration 21 % Take the Interview PA-C Work Phone: [employer]; [employer]. Comment on above: Room air 05-17-2011 08:59-0400 SaO2% (BldA) [Mass fraction] 98 % Take the Interview PA-C Work Phone: [employer]; [employer]. 03-05-2011 15:03-0400 Body height 144.78 cm Conchita Hawthorne RN [employer].; [employer]. 03-05-2011 15:03-0400 Body mass index (BMI) [Percentile] Per age and sex 34 % Conchita Hawthorne RN [employer].; [employer]. 03-05-2011 15:03-0400 Body mass index (BMI) [Ratio] 16.1 kg/m2 Conchita Hawthorne RN [employer].; [employer]. 03-05-2011 15:03-0400 Body surface area Derived from formula 1.18 m2 Conchita Hawthorne RN [employer].; [employer]. 03-05-2011 15:03-0400 Body temperature 98.5 [degF] Conchita Hawthorne RN [employer].; [employer]. Comment on above: Method: Tympanic 03-05-2011 15:03-0400 Body weight 33.75 kg Conchita Hawthorne RN [employer]. 10-09-2010 16:19-0400 Body height 142.24 cm Mandi Maldonado RN Work Phone: [employer]. 10-09-2010 16:19-0400 Body mass index (BMI) [Percentile] Per age and sex 35 % Mandi Maldonado RN Work Phone: [employer]. 10-09-2010 16:19-0400 Body mass index (BMI) [Ratio] 15.92 kg/m2 Mandi Maldonado RN Work Phone: [employer]. 10-09-2010 16:19-0400 Body surface area Derived from formula 1.14 m2 Mandi Maldonado RN Work Phone: [employer]. 10-09-2010 16:19-0400 Body temperature 98.1 [degF] Mandi Maldonado RN Work Phone: [employer].; [employer]. Comment on above: Method: Tympanic 10-09-2010 16:19-0400 Body weight 32.21 kg Mandi Maldonado RN Work Phone: [employer].; [employer]. 09-07-2010 13:03-0500 Body height 139.7 cm Mandi Maldonado RN Work Phone: [employer].; [employer]. 09-07-2010 13:03-0500 Body mass index (BMI) [Percentile] Per age and sex 38 % Mandi Maldonado RN Work Phone: [employer].; [employer]. 09-07-2010 13:03-0500 Body mass index (BMI) [Ratio] 16.04 kg/m2 Mandi Maldonado RN Work Phone: [employer].; [employer]. 09-07-2010 13:03-0500 Body surface area Derived from formula 1.11 m2 Mandi Maldonado RN Work Phone: [employer].; [employer] 09-07-2010 13:03-0500 Body temperature 98.1 [degF] Mandi Maldonado RN Work Phone: [employer].; [employer]. Comment on above: Method: Tympanic 09-07-2010 13:03-0500 Body weight 31.3 kg Mandi Maldonado RN Work Phone: [employer].; [employer]. 07-07-2010 08:41-0500 Body height 140.34 cm Anna Marie Sales PA-C Work Phone: [employer].; [employer] 07-07-2010 08:41-0500 Body mass index (BMI) [Percentile] Per age and sex 46 % Anna Marie Sales PA-C Work Phone: [employer].; [employer] 07-07-2010 08:41-0500 Body mass index (BMI) [Ratio] 16.35 kg/m2 Anna Marie Sales PA-C Work Phone: [employer].; [employer] 07-07-2010 08:41-0500 Body surface area Derived from formula 1.13 m2 Anna Marie Sales PA-C Work Phone: [employer].; [employer]. 07-07-2010 08:41-0500 Body temperature 99 [degF] Anna Marie Sales PA-C Work Phone: [employer].; [employer]. 07-07-2010 08:41-0500 Body weight 32.21 kg Anna Marie Sales PA-C Work Phone: [employer]; [employer]. Encounters Encounter Date Encounter Type Care Provider Facility Start: 06-01-2025 End: 06-01-2025 ambulatory Anna Marie Sales PA Facility:[facility] Start: 05-28-2025 ambulatory Anna Marie Sales PA Facil ity:[facility] Start: 05-20-2025 End: 05-20-2025 ambulatory Anna Marie Sales PA Facility:[facility] Start: 05-03-2025 End: 05-03-[address] Rita Rivas DO -[facility] Work Phone: Start: 05-03-2025 End: 05-03-2025 ambulatory Anna Marie Sales PA Work Phone: -[facility] Start: 04-22-2025 End: 04-22-[address] Maia Gan MD -[facility] Work Phone: Start: 04-22-2025 End: 04-22-2025 ambulatory Anna Marie Sales PA Work Phone: -[facility] Start: 04-20-2025 End: 04-20-2025 Patient encounter procedure Mechelle Francois VARNISH SUPERVISOR-C -Laboratory Work Phone: Start: 04-20-2025 End: 04-20-2025 ambulatory Anna Marie Sales PA Facility:[facility] Start: 04-07-2025 End: 04-07-2025 ambulatory Anna Marie Sales PA Work Phone: -[facility] Start: 04-07-2025 End: 04-07-2025 Patient encounter procedure Mechelle Francois VARNISH SUPERVISOR-C -[facility] Work Phone: Start: 04-07-2025 End: 04-07-2025 ambulatory Anna Marie Sales PA Facility:[facility] Start: 03-31-2025 End: 03-31-2025 ambulatory Anna Marie Sales PA Work Phone: -Laboratory Specimen Start: 03-31-2025 End: 03-31-2025 Patient encounter procedure Mechelle Francois VARNISH SUPERVISOR-C -Laboratory Specimen Work Phone: Start: 03-31-2025 End: 03-31-2025 Patient encounter procedure Mechelle DOWNING -[facility] Work Phone: Start: 03-31-2025 End: 03-31-2025 ambulatory Anna Marie Sales PA Work Phone: -[facility] Start: 03-31-2025 End: 03-31-2025 ambulatory Anna Marie Sales PA Facility:[facility] Start: 03-11-2025 End: 03-11-2025 Patient encounter procedure Kehinde Anand CNM -[facility] Work Phone: Start: 03-11-2025 End: 03-11-2025 ambulatory Anna Marie Sales PA Work Phone: -[facility] Start: 03-11-2025 End: 03-11-2025 ambulatory Anna Marie Sales PA Facility:[facility] Start: 03-03-2025 ambulatory Rita Wolfe cility:[facility] Start: 03-03-2025 Non-patient / Non-visit Dr. Johnnie Rivas DO -[facility] Start: 03-03-2025 End: 03-03-2025 ambulatory Anna Marie Sales PA Work Phone: -[facility] Start: 03-03-2025 End: 03-03-[address] [facility] Work Phone: Start: 02-18-2025 End: 02-18-[address] Maia Gan MD -[facility] Start: 02-18-2025 End: 02-18-2025 ambulatory [facility] Start: 02-18-2025 End: 02-18-2025 ambulatory Anna Marie Sales PA Facility:[facility] Start: 02-09-2025 End: 02-09-[address] Maia Gan MD -[facility] Work Phone: Start: 02-09-2025 End: 02-09-2025 ambulatory Anna Marie Sales PA Work Phone: -[facility] Start: 02-04-2025 End: 02-04-2025 ambulatory [facility] Start: 01-15-2025 End: 01-15-[address] Rita Rivas DO -[facility] Work Phone: Start: 01-15-2025 End: 01-15-2025 ambulatory Anna Marie Salse PA Work Phone: -[facility] Start: 01-06-2025 End: 01-06-[address] Maia Gan MD -[facility] Out Work Phone: Start: 01-06-2025 End: 01-06-2025 ambulatory Anna Marie Sales PA Work Phone: [facility] Work Phone: Start: 12-23-2024 End: 12-23-2024 Patient encounter procedure Kehinde Anand CNM -[facility] Work Phone: Start: 12-23-2024 End: 12-23-2024 ambulatory Anna Marie Sales PA Work Phone: [facility] Work Phone: Start: 12-21-2024 End: 12-21-2024 Patient encounter procedure Kehinde Anand CNM -[facility] Work Phone: Start: 12-21-2024 End: 12-21-2024 ambulatory Anna Marie Sales PA Work Phone: [facility] Work Phone: Start: 12-21-2024 End: 12-21-2024 ambulatory Anna Marie Sales PA Facility:[facility] Start: 12-16-2024 End: 12-16-2024 Office outpatient visit 15 minutes Anna Marie Sales PA-C Work Phone: [facility] Start: 11-19-2024 End: 11-19-2024 Patient encounter procedure Kehinde Vlad HIGGINS -[facility] Work Phone: Start: 11-19-2024 End: 11-19-2024 ambulatory Anna Marie Henrry GOMEZ Facility:[facility] Start: 11-19-2024 End: 11-19-2024 ambulatory Anna Marie GOMEZ Facility:[facility] Start: 11-03-2024 End: 11-03-2024 Patient encounter procedure Mechelle Francois VARNISH SUPERVISOR-C -[facility] Work Phone: Start: 11-03-2024 End: 11-03-2024 ambulatory Anna Marie Henrry GOMEZ Facility:[facility] Start: 06-12-2024 End: 06-12-2024 Patient encounter procedure Anna Marie Headley Henrry GRIMALDOC Work Phone: [facility] [employer]. Start: 06-12-2024 End: 06-12-2024 Periodic preventive med est patient 18-39 yrs Anna Marie Sales PA-C Work Phone: [facility] Start: 06-12-2024 Patient encounter status Madina Jules LPN [facility].; [facility]. Start: 06-12-2024 Review Anna Marie GOMEZ-Gia Work Phone: [facility] Start: 03-30-2024 End: 03-30-2024 Refill Elijah Lyman APRN.MACHINE FEEDER FLOORPERSON Work Phone: OB/Gynecology Comment on above: Med Change Request Start: 03-30-2024 End: 03-30-2024 ambulatory Elijah Lyman APRN.MACHINE FEEDER FLOORPERSON Work Phone: OB/Gynecology Comment on above: Dyspareunia in femal e (Primary Dx) Start: 03-30-2024 End: 03-30-2024 Telemedicine consultation with patient Elijah Lyman MACHINE FEEDER FLOORPERSON Work Phone: OB/Gynecology Start: 03-20-2024 End: 03-20-2024 ambulatory ELIJAH LYMAN OB/Gynecology Start: 03-20-2024 End: 03-20-2024 Patient encounter procedure [employer] Supervisor [employer] OB/Gynecology Start: 03-11-2024 End: 03-11-2024 ambulatory ELIJAH LYMAN Facility:[facility] Start: 03-11-2024 End: 03-11-2024 Patient encounter procedure Elijah Lyman ROAD CROSSING GUARD.MACHINE FEEDER FLOORPERSON Work Phone: OB/Gynecology Comment on above: Dyspareunia in femal e (Primary Dx); Screen for STD (sexually transmitted disease); Encounter for screening for malignant neoplasm of cervix Start: 01-03-2024 End: 01-03-2024 Orders Anna Marie Sales PA-C Work Phone: [employer]. Start: 12-30-2023 End: 12-30-2023 Orders Anna Marie Sales PA-C Work Phone: [employer]. Start: 05-01-2023 End: 05-01-2023 Medication Anna Marie Sales PA-C Work Phone: [employer]. Start: 04-15-2023 End: 04-15-2023 Orders Anna Marie Sales PA-C Work Phone: [employer]. Start: 12-14-2022 End: 12-14-2022 Orders Anna Marie Sales PA-C Work Phone: [employer]. Start: 12-05-2022 End: 12-05-2022 Orders Anna Marie Sales PA-C Work Phone: [employer]. Start: 11-30-2022 End: 12-03-2022 Orders Anna Marie Sales PA-C Work Phone: [employer]. Start: 11-28-2022 End: 11-28-2022 Patient encounter procedure Anna Marie Sales PA-C Work Phone: [employer] Start: 11-28-2022 End: 11-28-2022 Patient encounter status Anna Marie Sales PA-C Work Phone: [employer].; [employer]. Start: 10-17-2022 End: 10-17-2022 ambulatory [facility] Work Phone: Start: 10-17-2022 End: 10-17-2022 Patient encounter procedure [facility] Start: 07-31-2022 End: 07-31-2022 Office outpatient visit 15 minutes Anna Marie Sales PA-C Work Phone: [employer]. Start: 01-29-2022 End: 01-29-2022 Office outpatient visit 15 minutes Anna Marie Sales PA-C Work Phone: [employer]. Start: 12-08-2021 End: 12-08-2021 Patient encounter procedure Anna Marie Sales PA-C Work Phone: [employer]. Start: 12-08-2021 End: 12-08-2021 Patient encounter status Anna Marie Sales PA-C Work Phone: [employer].; [employer] Start: 06-09-2021 End: 06-09-2021 Office outpatient visit 15 minutes Anna Marie Sales PA-C Work Phone: [employer]. Start: 02-17-2021 End: 02-17-2021 Office outpatient visit 15 minutes Anna Marie Sales PA-C Work Phone: [employer]. Start: 08-05-2020 End: 08-05-2020 Office outpatient visit 25 minutes Anna Marie Sales PA-C Work Phone: [employer]. Start: 08-18-2019 End: 08-18-2019 Office outpatient visit 25 minutes Anna Marie Sales PA-C Work Phone: [employer]. Start: 06-08-2019 End: 06-08-2019 Office outpatient visit 15 minutes Anna Marie Sales PA-C Work Phone: [employer]. Start: 12-18-2018 End: 12-18-2018 Patient encounter procedure NATALIA LIANG [facility] Start: 11-15-2018 End: 11-15-2018 Orders Anna Marie Sales PA-C Work Phone: [employer]. Start: 11-14-2018 End: 11-14-2018 Patient encounter procedure ANNA MARIE Headley SALES [facility] Start: 11-03-2018 End: 11-03-2018 Orders Anna Marie Sales PA-C Work Phone: [employer]. Start: 10-30-2018 End: 10-30-2018 Office outpatient visit 15 minutes Anna Marie Sales PA-C Work Phone: [employer]. Start: 06-23-2018 End: 06-23-2018 Orders Anna Marie Sales PA-C Work Phone: [employer]. Start: 06-20-2018 End: 06-22-2018 Office outpatient visit 15 minutes Anna Marie Sales PA-C Work Phone: [employer]. Start: 04-22-2018 End: 04-22-2018 Office outpatient visit 15 minutes Anna Marie Sales PA-C Work Phone: [employer]. Start: 04-14-2018 End: 04-14-2018 Office outpatient visit 25 minutes Anna Marie Sales PA-C Work Phone: [employer]. Start: 01-28-2018 End: 01-28-2018 Ambulatory [facility] Start: 01-28-2018 End: 01-28-2018 Patient encounter procedure Anna Marie Sales PA-C Work Phone: [employer]. Start: 01-28-2018 End: 01-28-2018 Patient encounter status Jaziel Nam LPN [employer].; [employer]. Start: 12-13-2016 End: 12-13-2016 Patient encounter procedure Anna Marie Sales PA-C Work Phone: [employer]. Start: 11-06-2016 End: 11-06-2016 Office outpatient visit 15 minutes Anna Marie Darlinger PA-C Work Phone: [employer]. Start: 10-18-2016 End: 10-18-2016 Patient encounter procedure Anna Mariemarley Darlinger PA-C Work Phone: [employer]. Start: 10-04-2016 End: 10-04-2016 Patient encounter procedure Anna Marie Sales PA-C Work Phone: [employer]. Start: 05-09-2016 End: 05-09-2016 Patient encounter procedure Anna Marie Sales PA-C Work Phone: [employer]. Start: 04-25-2016 End: 04-25-2016 Medication Anna Marie Darlinger PA-C Work Phone: [employer]. Start: 04-04-2016 End: 04-04-2016 Patient encounter procedure Anna Marie Sales PA-C Work Phone: [employer]. Start: 03-21-2016 End: 03-21-2016 Patient encounter procedure Anna Marie Darlinger PA-C Work Phone: [employer]. Start: 03-21-2016 End: 03-21-2016 Patient encounter status Conchita Hawthorne RN [employer]. Start: 11-07-2015 End: 11-07-2015 Office outpatient visit 25 minutes Anna Marie Sales PA-C Work Phone: [employer]. Start: 02-09-2015 End: 02-09-2015 Patient encounter procedure Anna Marie Sales PA-C Work Phone: [employer]. Start: 02-09-2015 End: 02-09-2015 Routine infant or child health check Anna Marie Sales PA-C Work Phone: [employer].; [employer]. Start: 06-09-2014 End: 06-09-2014 Nursing evaluation of patient and report Anna Marie Sales PA-C Work Phone: [facility]. Start: 11-13-2013 End: 11-13-2013 Patient encounter procedure Anna Marie Sales PA-C Work Phone: [facility]. Start: 07-02-2013 End: 07-02-2013 Nursing evaluation of patient and report Anna Marie Sales PA-C Work Phone: [facility]. Start: 02-05-2013 End: 02-05-2013 Orders Anna Marie Sales PA-C Work Phone: [facility]. Start: 01-30-2013 End: 01-30-2013 Patient encounter procedure Anna Marie Sales PA-C Work Phone: [facility] Start: 01-30-2013 End: 01-30-2013 Routine infant or child health check Mandi Maldonado RN Work Phone: [facility].; [employer] Start: 08-01-2012 End: 08-01-2012 Patient encounter procedure Anna Marie GOMEZ-C Work Phone: [employer] [facility] Start: 05-07-2012 End: 05-07-2012 Patient encounter procedure Anna Marie Sales PA-C Work Phone: [place] [facility] Start: 04-30-2012 End: 04-30-2012 Patient encounter procedure Anna Marie Sales PA-C Work Phone: [employer] [facility]. Start: 11-22-2011 End: 11-22-2011 Patient encounter procedure Anna Marie Sales PA-C Work Phone: [employer] Start: 07-26-2011 End: 07-26-2011 Patient encounter procedure Anna Marie Sales PA-C Work Phone: [employer] Start: 06-26-2011 End: 06-26-2011 Patient encounter procedure Anna Marie Sales PA-C Work Phone: [employer] Start: 05-30-2011 End: 05-30-2011 Patient encounter procedure Anna Marie Sales PA-C Work Phone: [facility] Start: 05-17-2011 End: 05-17-2011 Patient encounter procedure Anna Marie Sales PA-C Work Phone: [facility] Start: 03-05-2011 End: 03-05-2011 Patient encounter procedure Anna Marie Sales PA-C Work Phone: [facility] Start: 10-09-2010 End: 10-09-2010 Patient encounter procedure Anna Marie Sales PA-C Work Phone: [facility] Start: 09-07-2010 End: 09-07-2010 Patient encounter procedure Anna Marie Sales PA-C Work Phone: [facility] Start: 09-07-2010 End: 09-07-2010 Routine or child health check Anna Marie Sales PA-C Work Phone: [facility].; [employer] Start: 07-07-2010 End: 07-07-2010 Patient encounter procedure Anna Marie Sales PA-C Work Phone: [facility] Routine infant or ch ild health check Ángela Gottlieb Jeny PA-C Work Phone: [facility] [employer] Routine or ch ild health check Rita English LPN [facility].; [facility] Procedures Date Procedure Procedure Detail Performing Clinician Start: 04-07-2025 Urine culture Anna Marie jama PA Work Phone: Start: 04-07-2025 Serologic test for syphilis Anna Marie Sales PA Work Phone: Start: 03-31-2025 Urine culture Anna Marie bester PA Work Phone: Start: 03-03-2025 Urnls dip stick/tabl et reagent auto microscopy Anna Marie Sales PA Work Phone: Start: 03-03-2025 Urine culture Anna [...] HCV Quant by PCR testing - HCVPCR #[id number] Non Reactive: < 0.8 Equivocal: >/= 0.8 to < 1.0 Reactive: >/= 1.0The [facility] requires that a reactive/equivocal HCV antibody result be sent out for confirmation. HCV Quant by PCR testing. Start: 11-19-2024 Procedure Anna Marie GOMEZ Work Phone: Comment on above: Test Ordered: [id number] TSH Receptor Antibody (TBII)TSH Receptor Antibody (TBII) <0.3 U/L ES Reference Range: .Reference Range:Antibody Titer:<1.0 U/L = Negative1.1 - 1.5 U/L = Equivocal>1.5 U/L = PositivePerformed at: ES [facility] [address] [id number] Director: Jeronimo Holden MD, Phone: [phone] at: [facility] [id number] Director: Sandeep Bae PhD, Phone: [phone] Start: 11-19-2024 Rubella IgG measurement Anna Marie GOMEZ Work Phone: Comment on above: Antibody Result: Int erpretationNon-Reactive: Non- ImmuneReactive: ImmuneThe following results were obtained with the [employer] Rubella IgG assay. Results from assays of other manufacturers cannot be used interchangeably. Start: 11-19-2024 Serologic test for syphilis Anna Marie GOMEZ Work Phone: Start: 06-12-2024 End: 06-12-2024 Depression screening Anna Marie Darlinger PA-C Work Phone: Start: 06-12-2024 End: 06-12-2024 Scr dep neg, no plan reqd Anna Marie Headley [place] er PA-C Work Phone: Start: 03-20-2024 Us pelvic nonobstetr ic real-time image complete Elijah Lyman MINOR.MACHINE FEEDER FLOORPERSON Work Phone: Start: 06-21-2023 End: 06-21-2023 [place] Teeth Extraction Anna Marie Headley Sales PA-C [...] abdominal real time w/image limited Anna Marie J Sales PA-C Work Phone: Start: 06-20-2018 End: 06-24-2018 Us soft tissue head & neck real time imge docm Anna Marie Sales PA-C Work Phone: Start: 04-14-2018 End: 04-14-2018 Body mass index documented Ángela cameronjillian PA-C Work Phone: Start: 01-28-2018 End: 02-10-2018 Radex entir thrc lmbr crv sac spi w/skull 1 vw Ángela Gottlieb Jeny PA-C Work Phone: Start: 04-04-2016 End: 04-30-2017 Pressurized/nonpressurized inhalation treatment Ánegla Gottlieb Jeny GOMEZ-C Work Phone: Comment on above: PO RA s/p treatment - 97 Exam s/p treatment - rhonchi without wheezing Start: 02-09-2015 End: 02-09-2015 Screening test visual acuity quantitative bilat Ángelayaw GOMEZ-C Work Phone: History of cholecystectomy S/P cholecyste ctomy Anna Marie GOMEZ Work Phone: Comment on above: 2018 Plan of Treatment Date Care Activity Detail Author Start: 03-11-2027 Screening for malign ant neoplasm of cervix Cervical Cancer Screening [facility] Start: 07-01-2025 ambulatory Ambulatory Facility:[facility] Start: 04-20-2025 Patient encounter procedure Registered Clinical -Laboratory Work Phone: Start: 04-07-2025 Bacteria identified in Urine by Culture Urine Culture [facility] Start: 04-07-2025 [facility] Start: 03-11-2025 CBC W Auto Different ial panel - Blood [facility] Start: 03-11-2025 Comprehensive metabo lic 2000 panel - Serum or Plasma [facility] Start: 03-11-2025 Thyroid stimulating hormone measurement [facility] Start: 03-11-2025 GC (Gonorrhea) Scree lovely (18-24) GC (Gonorrhea) Screening (18-24) [facility] Start: 03-11-2025 Screening for Chlamy mya trachomatis Chlamydia Screening (18-24) [facility] Start: 03-03-2025 [facility] Start: 03-03-2025 Nonstress test [facility] Start: 03-03-2025 Obstetric monitoring [facility] Start: 03-03-2025 Vital signs measurements [facility] Start: 03-03-2025 [facility] Start: 01-06-[address] ug or medicament by intravenous push THER/PROPH/DIAG INJ IV PUSH [facility] Start: 01-06-2025 Iv infusion hydratio n each additional hour HYDRATE IV INFUSION ADD-ON [facility] Start: 01-06-2025 Ther proph/dx njx iv push single/1st sbst/drug THER/PROPH/DIAG INJ IV PUSH [facility] Start: 12-23-2024 Iv infusion hydratio n each additional hour HYDRATE IV INFUSION ADD-ON [facility] Start: 12-23-2024 Ther proph/dx njx iv push single/1st sbst/drug THER/PROPH/DIAG INJ IV PUSH [facility] Start: 06-12-2024 Comprehensive metabo lic panel CMP w/ GFR* (99848) Start: 12-Jun-2024 10:37-05:00 Request [employer]; [employer] Start: 06-12-2024 Assay of ferritin FERRITIN ([id number]) Start: 12-Jun-2024 10:37-05:00 Request [employer]; [employer]. Start: 06-12-2024 Blood count complete auto&auto difrntl wbc CBC, PLATELETS & AUT DIFF (F) ([id number]) Start: 12-Jun-2024 10:37-05:00 Request [employer]; [employer] Start: 06-12-2024 Assay of free thyroxine T4 CASANDRA E ([id number]) Start: 12-Jun-2024 10:36-05:00 Request [employer]; [employer] Start: 06-12-2024 Assay of thyroid stimulating hormone tsh TSH (THYROID STIMULATING HORMONE) ([id number]) Start: 12-Jun-2024 10:36-05:00 Request [employer]. Start: 06-12-2024 Patient encounter procedure Medical; PHYSICAL - physical [facility]. Start: 12-Jun-2024 10:00-05:00 JUAN Sales Appointment Request [employer] [facility]. Start: 03-30-2024 End: 03-30-2024 Follow-up encounter 03/30/2024 8:45 AM EDT [facility] OB/Gynecology [address] [place] [address] Elijah Lyman APRN.MACHINE FEEDER FLOORPERSON [address] [place], [place] [id number] us follow up OB/Gynecology Comment on above: us follow up Start: 03-22-2024 Covid-19 Vaccine ( season) Covid-19 Vaccine () [facility] Start: 03-22-2024 Influenza vaccination Influenza Vacc ine (#1) [facility] Start: 03-20-2024 End: 03-20-2024 ambulatory 03/20/2024 9:00 AM EDT Procedure OB/Gynecology [address] [place], [place] [id number] Dyspareunia in female [N94.10] OB/Gynecology Comment on above: Dyspareunia in femal e [N94.10] Start: 03-11-2024 End: 03-11-2025 US Pelvis PELVIC US [facility] Anc Imaging Routine Dyspareunia in female Expected: 03/11/2024, Expires: 03/11/2025 [facility] Work Phone: Comment on above: Expected: 03/11/2024 , Expires: 03/11/2025 Start: 01-03-2024 Assay of thyroid stimulating hormone tsh [employer]. Start: 01-03-2024 Nursing evaluation o f patient and report Medical; Nurse visit - TSH mjp [employer] Start: 03-Jan-2024 10:40-04:00 NURSE, FLOAT Appointment Request [facility]. Start: 03-22-2023 Covid-19 Vaccine ( season) Covid-19 Vaccine ( season) [facility] Start: 2021 Screening for malign ant neoplasm of cervix Cervical Cancer Screening [facility] Start: 12-18-2019 Hepatitis B Vaccine (1 of 3 - 19+ 3-dose series) Hepatitis B Vaccine (1 of 3 - 19+ 3-dose series) [facility] Start: 12-18-2019 Urine microalbumin profile DTa P,Tdap,Td Vaccine (1 - Tdap) [facility] Start: 2018 Anxiety Screening Anxiety Screening [facility] Start: 2018 Depression Screening Depression Scre ening [facility] Start: 2018 GC (Gonorrhea) Scree lovely () GC (Gonorrhea) Screening () [facility] Start: 2018 Hepatitis C screening Hepatitis C Sc reening [facility] Start: 2018 HIV screening HIV Screening [facility] Start: 2018 Screening for Chlamy mya trachomatis Chlamydia Screening () [facility] Start: 2016 Meningococcal B Vacc ine: Consider Based On Risk (1 of 2 - Patient Seeks Protection) Meningococcal B Vaccine: Consider Based On Risk (1 of 2 - Patient Seeks Protection) [facility] Start: 12-18-2015 HPV Vaccine (1 - 3-d ose series) HPV Vaccine (1 - 3-dose series) [facility] Start: 2014 Peds To Adult Transi tion Annual Assessment Peds To Adult Transition Annual Assessment [facility] Start: 2012 Peds To Adult Transi tion Initial Discussion Peds To Adult Transition Initial Discussion [facility] Alanine aminotransfe rase [Enzymatic activity/volume] in Serum or Plasma [facility] Albumin [Mass/volume ] in Serum or Plasma [facility] Alkaline phosphatase [Enzymatic activity/volume] in Serum or Plasma [facility] Anion gap in Serum o r Plasma [facility] BACTERIAL VAGINOSIS NAAT BACTERI AL VAGINOSIS NAAT Lab Routine Dyspareunia in female 03/11/2024 8:10 AM EDT [facility] Bilirubin, total measurement [facility] BUN/Creatinine ratio [facility] Calcium [Mass/volume ] in Serum or Plasma [facility] FLORIDALMA/TRICHOMONAS NAAT FLORIDALMA /TRICHOMONAS NAAT Lab Routine Dyspareunia in female 03/11/2024 8:10 AM EDT [facility] Carbon dioxide, tota l [Moles/volume] in Central venous blood [facility] Chlamydia trachomatis+Neisseria gonorrhoeae DNA [Presence] in Unspecified specimen by ANIRUDH with probe detection GONORRHEA/CHLAMYDIA NAAT Lab Routine Screen for STD (sexually transmitted disease) 03/11/2024 8:10 AM EDT [facility] Creatinine [Mass/vol ume] in Serum or Plasma [facility] Erythrocyte mean corpuscular volume determination [facility] Erythrocyte mean corpuscular volume determination [facility] Glucose [Mass/volume ] in Serum or Plasma [facility] Hematocrit [Volume Fraction] of Blood [facility] Hematocrit [Volume Fraction] of Blood [facility] Hemoglobin [Mass/vol ume] in Blood [facility] Hemoglobin [Mass/vol ume] in Blood [facility] Leukocytes [#/volume ] in Blood [facility] Leukocytes [#/volume ] in Blood [facility] Mean corpuscular hemoglobin concentration determination [facility] Mean corpuscular hemoglobin concentration determination [facility] Mean corpuscular hemoglobin determination [facility] Mean corpuscular hemoglobin determination [facility] Measurement of gluco se 2 hours after glucose challenge for glucose tolerance test [facility] Measurement of renal function [facility] Neutrophil count [facility] Neutrophil count [facility] Neutrophil percent differential count [facility] Neutrophil percent differential count [facility] PAP TEST PAP TEST Lab Rou shannon Encounter for screening for malignant neoplasm of cervix 03/11/2024 8:10 AM EDT [facility] Patient Education Kick Counts ED False Labor OB Triage: Return to Hospital or Notify Physician if you Experience: [facility] Work Phone: Platelets [#/volume] in Blood [facility] Platelets [#/volume] in Blood [facility] Potassium measurement [facility] Red blood cell count [facility] Red blood cell count [facility] Red cell distributio n width determination [facility] Red cell distributio n width determination [facility] Serologic test for syphilis [facility] Serum chloride measurement [facility] Sodium measurement [facility] Thyroid stimulating hormone measurement [facility] Total protein measurement [facility] Urea nitrogen [Mass/volume] in Serum or Plasma [facility] Urine culture [facility] Urine culture [facility] Immunizations Immunization Date Immunization Notes Care Provider Fa cility 04-22-2025 tetanus toxoid, redu marissa diphtheria toxoid, and acellular pertussis vaccine, adsorbed Anna Marie GOMEZ Work Phone: [facility] 03-10-2021 COVID-Faby (AD26 .5 ML) Anna Marie Sales PA-C Work Phone: [employer]; [employer] 01-28-2018 Meningococcal, MCV4, unspecified conjugate formulation(groups A, C, Y and W-135) Anna Marie Sales PA-C Work Phone: [employer]; [employer] 01-28-2018 Counseled parent on risks/benefits of vaccines ([id number]) Anna Marie Sales PA-C Work Phone: [employer]; [employer] 01-28-2018 meningococcal polysaccharide (groups A, C, Y and W-135) diphtheria toxoid conjugate vaccine (MCV4P) Anna Marie Sales PA-C Work Phone: [employer]; [employer]. Comment on above: Site: Left DeltoidVI S Given: * Meningococcal Vaccine (10/20/2015) 06-09-2014 influenza, seasonal, injectable Anna Marie GOMEZ-Gia Work Phone: [employer]; [employer] Comment on above: Site: Deltoid (Left) VIS Given: * Influenza, Inactivated () 06-09-2014 IMMUNIZATION ADMIN ([id number]) Anna Marie Sales PA-C Work Phone: [employer]; [employer] 07-02-2013 influenza, seasonal, injectable Anna Marie Sales PA-C Work Phone: [facility] [employer] Comment on above: Site: Deltoid (Left) VIS Given: * Inactivated Influenza Vaccine (03/01/09) * Inactivated Influenza Vaccine (02/13/11) * Influenza vaccine [id number], inactivated (01/21/2012) * Influenza, Inactivated () * VIS Given (Unspecified) 07-02-2013 IMMUNIZATION ADMIN ([id number]) Anna Marie Sales PA-C Work Phone: [employer]; [employer] 02-05-2013 varicella virus vaccine Mercedes pattie Sales PA-C Work Phone: [employer]; [employer] Comment on above: Site: Deltoid Area ( Left)VIS Given: * Varicella (Chickenpox) (10/02/07) 01-30-2013 tetanus toxoid, redu marissa diphtheria toxoid, and acellular pertussis vaccine, adsorbed Anna Marie Sales PA-C Work Phone: [employer]; [employer]. Comment on above: Site: Deltoid (Left) VIS Given: * Tetanus/Diphtheria/(Pertussis) (Td/Tdap) (06/08/08) * Tetanus/Diptheria/Pertussis (Tdap/Td) 08/14/11 10-03-2005 diphtheria, tetanus toxoids and acellular pertussis vaccine Anna Marie Sales PA-C Work Phone: [employer] 10-03-2005 measles, mumps and rubella virus vaccine Anna Marie Sales PA-C Work Phone: [employer] [facility]. 10-03-2005 poliovirus vaccine, inactivated Anna Marie Sales PA-C Work Phone: [employer].; [employer] 08-31-2002 diphtheria, tetanus toxoids and acellular pertussis vaccine Anna Marie Sales PA-C Work Phone: [facility] 08-31-2002 varicella virus vaccine Mercedeschristy Darlinger PA-C Work Phone: [facility].; [facility] 03-19-2002 measles, mumps and rubella virus vaccine Anna Marie Sales PA-C Work Phone: [facility].; [facility] 02-27-2002 hepatitis B vaccine, pediatric or pediatric/adolescent dosage Anna Marie Sales PA-C Work Phone: [facility].; [facility] 06-18-2001 diphtheria, tetanus toxoids and acellular pertussis vaccine Anna Marie Sales PA-C Work Phone: [facility].; [facility] 06-18-2001 haemophilus influenz ae type b vaccine, PRP-T conjugate Anna Marie Sales PA-C Work Phone: [facility].; [facility] 06-18-2001 pneumococcal conjuga te vaccine, 7 valent Anna Marie Sales PA-C Work Phone: [facility].; [facility] 06-18-2001 poliovirus vaccine, inactivated Anna Marie Sales PA-C Work Phone: [facility].; [facility] 04-16-2001 diphtheria, tetanus toxoids and acellular pertussis vaccine Anna Marie Sales PA-C Work Phone: [facility].; [facility] 04-16-2001 haemophilus influenz ae type b vaccine, PRP-T conjugate Anna Marie Sales PA-C Work Phone: [facility].; [facility] 04-16-2001 pneumococcal conjuga te vaccine, 7 valent Anna Marie Sales PA-C Work Phone: [facility].; [facility] 04-16-2001 poliovirus vaccine, inactivated Anna Marie Sales PA-C Work Phone: [facility].; [facility] 02-25-2001 pneumococcal conjuga te vaccine, 7 valent Anna Marie Sales PA-C Work Phone: [facility].; [facility] 02-21-2001 diphtheria, tetanus toxoids and acellular pertussis vaccine Anna Marie Sales PA-C Work Phone: [facility].; [facility] 02-21-2001 haemophilus influenz ae type b vaccine, PRP-T conjugate Anna Marie Sales PA-C Work Phone: [facility].; [facility] 02-21-2001 poliovirus vaccine, inactivated Anna Marie Sales PA-C Work Phone: [facility].; [facility] 01-21-2001 hepatitis B vaccine, pediatric or pediatric/adolescent dosage Anna Marie Sales PA-C Work Phone: [facility].; [facility] 2000 hepatitis B vaccine, pediatric or pediatric/adolescent dosage Anna Marie Sales PA-C Work Phone: [facility].; [facility] Payers Date Payer Category Payer Self-pay [id number] 2024 Unknown [id number] 2023 Unknown [id number] 2023 Unknown [id number] 2000 Unknown [id number] 2.16.84 0.1.757769.3.579.2.651 2000 Unknown [id number] 2.16. 840.1.040418.3.579.2.479 2000 Unknown [id number] 2.16. 840.1.459256.3.579.2.479 1961 Unknown [id number] 2.16.84 0.1.353454.3.579.2.651 Private Health Insurance [id number] Unknown [id number] Unknown [id number] 2.16.8 40.1.224050.3.579.2.462 Unknown [id number] 2.16.8 40.1.313980.3.579.2.462 Unknown [id number] 2.16.8 40.1.865616.3.579.2.462 Unknown [id number] 2.16.8 40.1.106342.3.579.2.462 Unknown [id number] 2.16.8 40.1.755545.3.579.2.462 Unknown [id number] 2.16.8 40.1.439653.3.579.2.462 Unknown [id number] 2.16.8 40.1.249909.3.579.2.462 Unknown [id number] 2.16.8 40.1.573750.3.579.2.462 Unknown [id number] 2.16.8 40.1.058689.3.579.2.462 Unknown [id number] 2.16.8 40.1.864167.3.579.2.462 Unknown [id number] 2.16.8 40.1.959441.3.579.2.462 Unknown [id number] 2.16.8 40.1.827697.3.579.2.462 Unknown [id number] 2.16.8 40.1.476723.3.579.2.462 Unknown [id number] 2.16.8 40.1.149210.3.579.2.462 Unknown [id number] 2.16.8 40.1.723168.3.579.2.462 Unknown [id number] 2.16.8 40.1.937695.3.579.2.462 Unknown [id number] 2.16.8 40.1.997065.3.579.2.462 Unknown [id number] 2.16.8 40.1.686760.3.579.2.462 Unknown [id number] 2.16.8 40.1.784382.3.579.2.462 Unknown [id number] 2.16.8 40.1.398249.3.579.2.462 Unknown [id number] 2.16.8 40.1.878453.3.579.2.462 Unknown [id number] 2.16.8 40.1.517609.3.579.2.462 Unknown [id number] 2.16.8 40.1.584238.3.579.2.462 Unknown [id number] 2.16.8 40.1.350629.3.579.2.462 Unknown [id number] 2.16.8 40.1.681301.3.579.2.462 Social History Date Type Detail Facility Start: 11-05-2015 Tobacco smoking stat us NMIS Unknown if ever smoked [facility] Start: 2000 Sex Assigned At Female [facility] Start: 03-11-2024 End: 03-30-2024 Caffeine Use Caffeine Use [facility] [employer] Tobacco/Smoke Exposure: Tobacco/Smoke Exposure: ; None. [employer] None [employer] Work Phone: Start: 03-11-2024 End: 03-30-2025 Tobacco smoking status NHIS Never smoked tobacco [facility] Start: 03-11-2024 Tobacco use and exposure Smokeless tobacco non-user [facility] Start: 03-11-2024 End: 03-30-2024 Tobacco use panel [facility] National Score (1-100), lower number is lower risk 83 [facility] Start: 2000 Sex assigned at Not [facility] file [facility] Procedure Code Equipment Code Equipment Origin al Text Equipment Identifier Dates Blood Sugar Diagnostic (Blood Glucose Test) strip Start: 04-21-2025 Lancets [place]Droplet Lancets) [place] [facility] [place]: 04-21-2025 Blood Sugar Diagnostic (Blood Glucose Test) strip Start: 04-21-2025 Lancets (Droplet Lancets) 30 [place] [facility] [place]: 04-21-2025 Mental Status Date Assessment Result Facility 01-06-2025 Cognitive function Voice/Name [facility] Work Phone: 12-23-2024 Cognitive function Voice/Name [facility] Work Phone: Clinical Notes 03-11-2024 to 05-03-2025 Note Date & Type Note Facility 05-03-2025 Progress note [facility] 04-22-2025 Progress note [facility] 04-22-2025 Progress note Note Date/Time April 22, 2025 4:18pm [facility] [address], [address] [place] [address] OFFICE VISIT Date of Service: 04/22/25 MR#: [id number] Acct: [id number] Name: CHERY MCKEON Rep #: [id number] : 2000 Provider: Dr. Willian Gan MD Age/Sex: 24/F [place] [facility] [place]: Signed Intake Vital Signs 03/11/25 15:18 04/07/25 12:52 04/22/25 15:56 Height 5 ft 5 in 5 ft 5 in 5 ft 5 in Weight: 176 lb 3 oz 179 lb BMI 29.3 29.7 BP 117/80 119/81 H Intake Visit Reasons: 30 WK OB Cyanide Pot Hardener Required: No Is patient in pain?: No [...] Negative : No PFSH PFSH Surgical History [place] teeth removed S/P cholecystectomy Family History Grandfather Prostate cancer Grandmother Colon cancer CVA (cerebral vascular accident) Grandmother Dementia Father Diabetes Myocardial infarction Skin cancer Mother Heart disease Thyroid disorder Social History adopted: No household members: spouse housing: house current occupational status: employed current occupation: [employer] current occupational exposures/hazards: No pets and animals: [...] 1-2 times per week duration: 15-30 minutes/day guy/mu-ism: Zoroastrian seatbelt use: always do you feel safe at home: Yes 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 LARC today. 04/07/25 -?-?-?-?-?-?-?-?-?-?-?-?- 27w 6d 176 lb [...] Performing Provider: Maia Gan MD Performing Location: [facility] Administered by: Mechelle Johnson on 04/22/25 16:08 Dose Route Admin Location Dispensed Lot Number Expiration Date Pack age NDC NDC Sow Manager 0.5 mL IM Left Deltoid 0.5 mL [id number] 03/21/27 62267-576-07 [id number] [employer] PASTEUR VIS Given Date VIS Provided VIS Publication [...] Today Z23 - Encounter for immunization 04/22/25 1618 <Electronically signed by Maia helton MD> Date _ Maia Saini Signature: Date (if applicable) CC: ~ [facility] Work Phone: 1(217) 507-876908-21-2025 Progress [facility] [address] [place] [address], [address] [place] [address] OFFICE VISIT Date of Service: 03/11/25 MR#: [id number] Acct: [id number] Name: CHERY MCKEON Rep #: [id number] : 2000 Provider: GISELA Anand Age/Sex: 24/F [place] [facility] [place] Status: Signed Intake Vital Signs 01/15/25 14:30 03/03/25 18:25 03/11/25 15:12 03/11/25 15:18 Height 5 ft 5 in 5 ft 5 in 5 ft 5 in 5 ft 5 in Weight: 175 lb 3 oz BMI 29.1 BP 135/86 H Intake Visit Reasons: 24wk ob Chief Complaint: 24wk OB Cyanide Pot Hardener Required: No Is patient in pain?: No [...] 09/16/24 : No PFSH PFSH Surgical History [place] teeth removed S/P cholecystectomy Family History Grandfather Prostate cancer Grandmother Colon cancer CVA (cerebral vascular accident) Grandmother Dementia Father Diabetes Myocardial infarction Skin cancer Mother Heart disease Thyroid disorder Social History adopted: No household members: spouse housing: house current occupational status: employed current occupation: [employer] current occupational exposures/hazards: No pets and animals: [...] 1-2 times per week duration: 15-30 minutes/day guy/mu-ism: Zoroastrian seatbelt use: always do you feel safe at home: Yes 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 JAIC changed. declines NIPT. PAP done with [facility] [...] Symptoms of Preeclampsia, Infant Feeding No , [place] Education and Family Medical Leave or Disability [...] in first trimester O Trimester: first trimester 24 weeks gestation of [...] unspecified, first trimester Comprehensive Metabolic Profil Today O09 - Supervision of high risk , unspecified, first trimester Medications: Refilled famotidine (Pepcid) 20 mg PO BID 60 tabs 6RF Plan Details Additional Comments: ACOG trimester education reviewed and updated. see problem list details for updated plan management information and see below for orders placed atthis visit. [place] appropriate handout given. 03/11/25 1531 s BEVERLEYM> Date _ Kehinde Anand CNM Cosigner Signature: Date (if applicable) CC: ~ [facility] [id number] Progress note Author Kehinde Anand [facility] Note Date/Time March 11, 2025 3: 31pm [facility] [address] [place] [address], [address] [place] [address] OFFICE VISIT Date of Service: 03/11/25 MR#: [id number] Acct: [id number] Name: CHERY MCKEON Rep #: [id number] : 2000 Provider: GISELA Anand Age/Sex: 24/F [place] [facility] [place] Status: Signed Intake Vital Signs 01/15/25 14:30 03/03/25 18:25 03/11/25 15:12 03/11/25 15:18 Height 5 ft 5 in 5 ft 5 in 5 ft 5 in 5 ft 5 in Weight: 175 lb 3 oz BMI 29.1 BP 135/86 H Intake Visit Reasons: 24wk ob Chief Complaint: 24wk OB Cyanide Pot Hardener Required: No Is patient in pain?: No [...] 09/16/24 : No PFSH PFSH Surgical History [place] teeth removed S/P cholecystectomy Family History Grandfather Prostate cancer Grandmother Colon cancer CVA (cerebral vascular accident) Grandmother Dementia Father Diabetes Myocardial infarction Skin cancer Mother Heart disease Thyroid disorder Social History adopted: No household members: spouse housing: house current occupational status: employed current occupation: [employer] current occupational exposures/hazards: No pets and animals: [...] 1-2 times per week duration: 15-30 minutes/day guy/mu-ism: Zoroastrian seatbelt use: always do you feel safe at home: Yes 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 [place] appropriate handout given. 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 8:57am Nausea and vomiting during acute March 31, 2025 8:57am acute March 8:57am Supervision of high-risk acute March 31, 2025 8:57am UTI in acute Marembe r 2024 8:57am Absent nasal bridge acute Septe mber 2024 12:48pm Sharad's disease acute Septe mber 2024 12:48pm acute March 12:48pm Supervision of high-risk acute April 07, 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 UTI in acute Marembe r 2024 12:48pm Abnormal glucose acute April 22, 2025 3:51pm Absent nasal bridge acute Octob er 2024 3:51pm Eczema acute April 22 3:51pm Sharad's disease acute Octob er 2024 3:51pm Nausea and vomiting during acute April 22 3:51pm acute April 22 3:51pm Supervision of high-risk acute April 22 [...] UTI in acute May 03, 2025 9:26am [facility] Work Phone: 1(644) 181-759307-22-2025 Progress [facility] [address] [place] [address], [address] [place] [address] OFFICE VISIT Date of Service: 02/09/25 MR#: [id number] Acct: [id number] Name: CHERY MCKEON Rep #: [id number] : 2000 Provider: Dr. Willian Gan MD Age/Sex: 24/F Location[place] [facility] [place] Status: Signed Intake Vital Signs 12/21/24 15:20 01/15/25 14:30 02/09/25 10:58 Height 5 ft 5 in 5 ft 5 in 5 ft 5 in Weight: 173 lb 2 oz BMI 28.8 BP 129/83 H Intake Visit Reasons: 22 wk ob Cyanide Pot Hardener Required: No Is patient in pain?: No [...] Rx promethazine 25 mg rectal 25 mg ME Q4-6H PRN nausea an d 02/09/25 02/09/25 Rx suppository vomiting #12 ea Last Menstrual Period: 09/16/24 Zika: Zika virus screening: Negative : No PFSH PFSH Surgical History [place] teeth removed S/P cholecystectomy Family History Grandfather Prostate cancer Grandmother Colon cancer CVA (cerebral vascular accident) Grandmother Dementia Father Diabetes Myocardial infarction Skin cancer Mother Heart disease Thyroid disorder Social History adopted: No household members: spouse housing: house current occupational status: employed current occupation: [employer] current occupational exposures/hazards: No pets and animals: No history of recent travel: Yes ([place] 2024, [place] August 2024) out of [...] 1-2 times per week duration: 15-30 minutes/day guy/mu-ism: Zoroastrian seatbelt use: always do you feel safe at home: Yes 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 JCAI changed. declines NIPT. PAP done with [facility] [...] 60 tabs 6RF Refilled promethazine 25 mg ME Q4-6H PRN 12 ea 6RF nausea and vomiting 02/09/25 1143 sunitha SMITH> Date _ Maia Gonzalezignjustin Signature: Date (if applicable) CC: ~ [facility]06-27-2025 Evaluation note* Diagnosis Onset Date Resolution Status [...] acute March 03 5:32pm acute March 03, 2 025 5:32pm Supervision of high-risk acute March [...] February 202024 3:08pm Absent nasal bridge acute [facility] [place] 8:57am Nausea and vomiting during acute March 31, 2025 8:57am acute March 8:57am Supervision of high-risk acute March 31, 2025 8:57am [facility] 20[facility] 8:57am Absent nasal bridge acute [facility]2024 12:48pm Sharad's disease acute [facility] 2024 12:48pm acute March 12:48pm Supervision of high-risk acute April 07, 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 UTI in acute [facility] 2024 12:48pm [facility] Work Phone: 1(773) 824-178206-27-2025 Evaluation note* Diagnosis Onset Date Resolution Status [...] 11, 2 025 3:08pm Sharad's disease acute 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 3:08pm [...] 31, 2025 8:57am UTI in acute Septembe r 2024 8:57am Absent nasal bridge acute Septe [facility] 2024 12:48pm Sharad's disease [facility] 12:48pm acute March 12:48pm Supervision of high-risk acute April 07, 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 [facility] 2024 12:48pm Abnormal glucose acute April 22, 2025 3:51pm Absent nasal bridge acute Octob er 2024 3:51pm Eczema acute April 22, 025 3:51pm Sharad's disease acute Octob er 2024 3:51pm Nausea and vomiting during acute April 22 3:51pm acute April 22, 025 3:51pm Supervision of high-risk acute April 22 3:51pm UTI in acute April 22, 2025 3:51pm [facility] Work Phone: 1(192) 748-178506-02-2025 Evaluation note* Diagnosis Onset Date Resolution Status [...] acute 2024 3:08pm Eczema acute March 11, 3:08pm Sharad's disease acute 2024 3:08pm Nausea and vomiting during acute March 11 3:08pm acute March 11, 025 3:08pm Supervision of high-risk acute March 11 3:08pm UTI in acute February 202024 3:08pm Absent nasal bridge acute Septe 2024 8:57am Eczema acute March 8:57am Sharad's disease acute 2024 8:57am Nausea and vomiting during acute March 31, 2025 8:57am acute March 8:57am Supervision of high-risk acute March 31, 2025 8:57am UTI in acute 2024 8:57am [facility] Work Phone: 1(491) 589-901606-02-2025 Evaluation note* Diagnosis Onset Date Resolution Status [...] 3:08pm Absent nasal bridge acute 2024 8:57am Nausea and vomiting during [...] 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 UTI in acute 2024 12:48pm [facility] Work Phone: 1(940) 533-175406-02-2025 Evaluation note* Diagnosis Onset Date Resolution Status [...] acute March 03 5:32pm acute March 03, 2 025 5:32pm Supervision of high-risk acute March [...] 31, 2025 8:57am UTI in acute Septembe r 2024 8:57am Absent nasal bridge acute Septe 2024 12:48pm Sharad's disease acute Septe 2024 12:48pm acute March 12:48pm Supervision of high-risk acute April 07, 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 UTI in acute Septembe r 2024 12:48pm [facility] Work Phone: 1(734) 402-673506-02-2025 Progress [facility] [address], [address] [place] [address] OFFICE VISIT Date of Service: 12/21/24 MR#: [id number] Acct: [id number] Name: CHERY MCKEON Rep #: [id number] : 2000 Provider: GISELA Anand Age/Sex: 24/F [place] [facility] Status: Signed Intake Vital Signs 11/05/15 16:09 11/19/24 08:43 12/21/24 15:20 Height 5 ft 5 in 5 ft 5 in 5 ft 5 in Weight: 170 lb 6 oz 165 lb BMI 28.3 27.4 BP 130/86 H 126/86 H Intake Visit Reasons: 12wk ob Chief Complaint: 12wk OB Cyanide Pot Hardener Required: No Is patient in pain?: No [...] tabs promethazine 25 mg rectal 25 mg ME Q4-6H PRN nausea an d 12/21/24 12/21/24 Rx suppository vomiting #12 ea Last Menstrual Period: 09/16/24 PFSH PFSH Surgical History [place] teeth removed S/P cholecystectomy Family History Grandfather Prostate cancer Grandmother Colon cancer CVA (cerebral vascular accident) Grandmother Dementia Father Diabetes Myocardial infarction Skin cancer Mother Heart disease Thyroid disorder Social History adopted: No household members: spouse housing: house current occupational status: employed current occupation: [employer] current occupational exposures/hazards: No pets and animals: [...] 1-2 times per week duration: 15-30 minutes/day guy/mu-ism: Zoroastrian seatbelt use: always do you feel safe at home: Yes 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 see problem list details for updated plan management information and see below for orders placed atthis visit. [place] appropriate handout given. 12/21/24 1541 s BEVERLEYM> Date _ Kehinde Anand CNM Cosigner Signature: Date (if applicable) CC: ~ [facility]06-02-2025 Progress note Author Kehinde Anand [facility] Note Date/Time December 21, 2024 3:41p [facility] [address], [address] [place] [address] OFFICE VISIT Date of Service: 12/21/24 MR#: [id number] Acct: [id number] Name: CHERY MCKEON Rep #: [id number] : 2000 Provider: GISELA Anand Age/Sex: 24/F Location[place] [facility] [place] Status: Signed Intake Vital Signs 11/05/15 16:09 11/19/24 08:43 12/21/24 15:20 Height 5 ft 5 in 5 ft 5 in 5 ft 5 in Weight: 170 lb 6 oz 165 lb BMI 28.3 27.4 BP 130/86 H 126/86 H Intake Visit Reasons: 12wk ob Chief Complaint: 12wk OB Cyanide Pot Hardener Required: No Is patient in pain?: No [...] tabs promethazine 25 mg rectal 25 mg ME Q4-6H PRN nausea an d 12/21/24 12/21/24 Rx suppository vomiting #12 ea Last Menstrual Period: 09/16/24 PFSH PFSH Surgical History [place] teeth removed S/P cholecystectomy Family History Grandfather [...] 1-2 times per week duration: 15-30 minutes/day guy/mu-ism: Zoroastrian seatbelt use: always do you feel safe at home: Yes 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 see problem list details for updated plan management information and see below for orders placed at this visit. [place] appropriate handout given. 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 Nausea and vomiting during acute March 11 3:08pm acute March 11, 2 025 3:08pm Supervision of high-risk acute March 11 3:08pm UTI in acute February 202024 3:08pm [facility] Work Phone: 1(716) 465-117704-15-2025 Evaluation note* Diagnosis Onset Date Resolution Status [...] high-risk acute December 21, 2024 3 :17pm [facility] Work Phone: 1([phone]) 819-930904-15-2025 Evaluation note* Diagnosis Onset Date Resolution Status [...] of high-risk acute January 15, 2025 2:22pm [facility] Work Phone: 1([phone]) 196-352304-15-2025 Evaluation note* Diagnosis Onset Date Resolution Status [...] of high-risk acute February 09, 2025 10:57am [facility] Work Phone: [phone] Telephone encounter Note* Telephone Encounter - Jaye Maher RN - 03/30/2024 2:36 PM EDT Pt notified and voiced understanding. Jaye Maher RN [facility]09-09-2024 Miscellaneous Notes* Telephone Encounter - Jaye Maher RN - 03/30/2024 2:36 PM EDT Pt notified and voiced understanding. Jaye Maher, RN * Telephone Encounter - Rita Reynolds RN - 03/30/2024 11:42 AM EDT Pharmacy comment: Alternative Requested:NOT COVERED BY INSURANCE. documented [facility] Telephone encounter Note * Telephone Encounter - Rita Reynolds RN - 03/30/2024 11:42 AM EDT Pharmacy comment: Alternative Requested:NOT COVERED BY INSURANCE. [facility]09-09-2024 NoteHNO ID: [id number] Author: ELIJAH LYMAN APRN.MACHINE FEEDER FLOORPERSON Service: ? Author Type: Nurse Practitioner Type: Progress Notes Filed: 03/30/2024 08:58 Note Text: OGI VIRTUAL VISIT Virtual limitations reviewed with patient, as well as possible need to travel to have diagnostic services. Patient voiced understanding. Patient seen on [employer] [place] Video Visit platform. Location of patient: [place] I have communicated my name and active licensure. The patient's identity and physical location were verified at the time of this visit. Either the patient or their legal accounts receivable representative has been informed of the risks and benefits of -- and alternatives to -- treatment through a remote evaluation and consents to proceed with the evaluation remotely. CC HPI: Chery was here on 03/11/24 for dyspareunia. Described the pain at the introitus and anterior part of vulva. [place] that something was rubbing. Described it as a sandpaper sensation. Vaginal cultures were negative. Ultrasound was normal, besides some free fluid in the peritoneal cavity. Was prescribed DHEA cream. Has not noticed a difference. Has a history of eczema and wondering if it can affect the vulva. ROS LEGAL OFFICER: + continued irritation around clitoris and introitus [...] eczema. Trial clobetasol. 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 Weaning regimen reviewed. - Follow up in 2-3 weeks or sooner. If not resolved, consider biopsy of vulva. Elijah Lyman APRN.JEANNE Medical Decision Making: Problems: Low: Acute, uncomplicated illness or injury Data: Unique test result(s) reviewed: 1 Risk: Low: Low risk from testing/treatment Moderate: Drug management Medical Decision Making Level: 3 - [facility] History of Present illness Narrative* Elijah Lyman APRN.JEANNE - 03/30/2024 8:41 AM EDT OGI VIRTUAL VISIT Virtual limitations reviewed with patient, as well as possible need to travel to have diagnostic services. Patient voiced understanding. Patient seen on [employer] [place] Video Visit platform. Location of patient: [place] I have communicated my name and active licensure. The patient's identity and physical location wereverified at the time of this visit. Either the patient or their legal accounts receivable representative has been informed of the risks and benefits of -- and alternatives to -- treatment through a remote evaluation andconsents to proceed with the evaluation remotely. CC HPI: Chery was here on 03/11/24 for dyspareunia. Described the pain at the introitus and anterior part of vulva. [place] that something was rubbing. Described it as a sandpaper sensation. Vaginal cultures were negative. Ultrasound was normal, besides some free fluid in the peritoneal cavity. Was prescribed DHEA cream. Has not noticed a difference. Has a history of eczema and wondering if it can affect the vulva. ROS LEGAL OFFICER: + continued irritation around clitoris and introitus [...] eczema. Trial clobetasol. 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 Weaning regimen reviewed. - Follow up in 2-3 weeks or sooner. If not resolved, consider biopsy of vulva. Elijah Lyman APRN.CNP Medical Decision Making: Problems: Low: Acute, uncomplicated illness or injury Data: Unique test result(s) reviewed: 1 Risk: Low: Low risk from testing/treatment Moderate: Drug management Medical Decision Making Level: 3 - Low documented in this encounterReg[facility]-2024 NoteHNO ID: [id number] Author: MAIA LUDWIG MD Service: ? Author Type: Physician Type: Progress Notes Filed: 03/24/2024 09:34 Note Text: Chery Mckeon is a 23 year old female who presented for software support representative ultrasound today. Encounter Diagnosis ICD-10-CM 1. Dyspareunia in female N94.10 Please see report under imaging tab. Maia Ludwig MD March 24, 2024 9:32 [facility]09-03-2024 History of Present illness Narrative * Maia Ludwig MD - 03/24/2024 9:32 AM EDT Chery Mckeon is a 23 year old female who presented for software support representative ultrasound today. Encounter Diagnosis ICD-10-CM 1. Dyspareunia in female N94.10 Please see report under imaging tab. Maia Ludwig MD March 24, 2024 9:32 AM documented in this encounterReg[facility]-2024 NoteHNO ID: [id number] Author: ELIJAH LYMAN APRN.CNP Service: ? Author Type: Nurse Practitioner Type: Progress Notes Filed: 03/11/2024 08:17 Note Text: Director Of Coding offered: Patient declines. Chery Mckeon is a [...] OB History No obstetric history on file. Workflow Developer History LMP: Age at Menarche: Age at First : Age at Menopause: Workflow Developer History Comments: Sexual Activity: No sexual activity [...] incontinence. + dysuria after intercourse Expanded ROS: LEGAL OFFICER: + dyspareunia Allergies and current medication updated:Yes EXAM: BP 122/80 Wt 157 lb (71.2kg) LMP 02/28/2024 GENERAL: pleasant, female in no apparent distress HEENT: Normocephalic, atraumatic, mucus membranes moist, and no lesions CHEST: Normal inspiratory effort PELVIC: + erythema to bilateral clitoris, normal Bartholin's glands, urethra, First [place]'s glands, no vulvar lesions, no cervical lesions, [...] Decision Making Level: 4 - ModerateSelect [facility]08-[facility]-2024 History of Present illness Narrative* Elijah Lyman APRN.CNP - 03/11/2024 7:38 AM EDT Director Of Coding offered: Patient declines. Chery Mckeon is a [...] OB History No obstetric history on file. Workflow Developer History LMP: Age at Menarche: Age at First : Age at Menopause: Workflow Developer History Comments: Sexual Activity: No sexual activity [...] incontinence. + dysuria after intercourse Expanded ROS: LEGAL OFFICER: + dyspareunia Allergies and current medication updated:Yes EXAM: BP 122/80 Wt 157 lb (71.2kg) LMP 02/28/2024 GENERAL: pleasant, female in no apparent distress HEENT: Normocephalic, atraumatic, mucus membranes moist, and no lesions CHEST: Normal inspiratory effort PELVIC: + erythema to bilateral clitoris, normal Bartholin's glands, urethra, [place]'s glands, no vulvar lesions, no cervical lesions, [...] Level: 4 - Moderate [facility] noteNo assessment information availableWSycamore Medical Center Work Phone: Evaluation note* Diagnosis Dyspareunia in female- Primary Screen for STD (sexually transmitted disease) Screening examination for venereal disease Encounter for screening for malignant neoplasm of cervix Screening for malignant neoplasm of the cervix [facility]* Diagnosis Dyspareunia in female documented [facility]* Diagnosis Dyspareunia in female- Primary documented [facility]* Diagnosis Dyspareunia in female [facility] note Author Maia Gan [facility] Note Date/Time February 09, 2025 11:4 3am [facility] [address] [place] [address], [address] [place] [address] OFFICE VISIT Date of Service: 02/09/25 MR#: [id number] Acct: [id number] Name: CHERY MCKEON Rep #: [id number] : 2000 Provider: Dr. Willian Gan MD Age/Sex: 24/F [place] [facility] [place]: Signed Intake Vital Signs 12/21/24 15:20 01/15/25 14:30 02/09/25 10:58 Height 5 ft 5 in 5 ft 5 in 5 ft 5 in Weight: 173 lb 2 oz BMI 28.8 BP 129/83 H Intake Visit Reasons: 22 wk ob Cyanide Pot Hardener Required: No Is patient in pain?: No [...] Rx promethazine 25 mg rectal 25 mg ME Q4-6H PRN nausea an d 02/09/25 02/09/25 Rx suppository vomiting #12 ea Last Menstrual Period: 09/16/24 Zika: Zika virus screening: Negative : No PFSH PFSH Surgical History [place] teeth removed S/P cholecystectomy Family History Grandfather [...] 1-2 times per week duration: 15-30 minutes/day guy/mu-ism: Zoroastrian seatbelt use: always do you feel safe at home: Yes 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 Hx Para [...] 60 tabs 6RF Refilled promethazine 25 mg ME Q4-6H PRN 12 ea 6RF nausea and vomiting 02/09/25 1143 <Electronically signed by Maia helton MD> Date _ Maia Gan MD Cosigner Signature: Date (if applicable) CC: ~ [facility] Work Phone: Progress note Author Rita Damon [facility] Note Date/Time May 03, 2025 9 :52am [facility] [address], [address] [place] [address] OFFICE VISIT Date of Service: 05/03/25 MR#: [id number] Acct: [id number] Name: JOCELYNNJOYCECHERY TONY Rep #: [id number] : 2000 Provider: Dr. Lydia Rivas DO Age/Sex: 24/F [place] [facility] [place] Status: Signed Intake Vital Signs 03/11/25 15:18 04/22/25 15:56 05/03/25 09:28 05/03/25 09:28 Height 5 ft 5 in 5 ft 5 in 5 ft 5 in 5 ft 5 in Weight: 182 lb BMI 30.2 BP 118/81 H Intake Visit Reasons: 32 WK OB Cyanide Pot Hardener Required: No Is patient in pain?: No [...] Negative : No PFSH PFSH Surgical History [place] teeth removed S/P cholecystectomy Family History Grandfather Prostate cancer Grandmother Colon cancer CVA (cerebral vascular accident) Grandmother Dementia Father Diabetes Myocardial infarction Skin cancer Mother Heart disease Thyroid disorder Social History adopted: No household members: spouse housing: house current occupational status: employed current occupation: [employer] current occupational exposures/hazards: No pets and animals: [...] 1-2 times per week duration: 15-30 minutes/day guy/mu-ism: Zoroastrian seatbelt use: always do you feel safe at home: Yes 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 LARC today. 04/07/25 -?-?-?-?-?-?-?-?-?-?-?-?- 27w 6d 176 lb [...] Symptoms of Preeclampsia, Infant Feeding No , [place] Education and Family Medical Leave or Disability [...] POC Urinalysis 2 Dip (Clinic) Today 05/03/25 8775 <Electronically signed by Rita WINN Date _ Rita Rivas DO Cosigner Signature: Date (if applicable) CC: ~ [facility] Work Phone: Reason for referral (narrative)* Diagnostic Procedure Only (Routine) - Authorized Specialty Diagnoses / Procedures Referred By Contac t Referred To Contact [facility] Diagnoses Dyspareunia in female Procedures PELVIC US I US PELVIC NONOBSTETRIC REAL-TIME IMAGE COMPLETE Elijah Lyman APRN.CNP [address] [place] [address] [facility] [place] [address] Referral ID Status Reason Start Date Expiration Date Visits Requested Visits Authorized [id number] Authorized Auto-Generat ed Referral 03/11/2024 03/11/2025 1 1 [facility] for referral (narrative)No reason for referral information availableNav[facility] Work Phone: Reason for visit Narrative* Diagnostic Procedure Only (Routine) - Closed Specialty Diagnoses / Procedures Referred By Contac t Referred To Contact [facility] Diagnoses Dyspareunia in female Procedures PELVIC US I US PELVIC NONOBSTETRIC REAL-TIME IMAGE COMPLETE Elijah Lyman APRN.CNP [address] 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, 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 Nausea and vomiting during Ismael 2024 2:22pm January 15, 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 [...] 2:22 pm Nausea and vomiting during Ismael 2024 2:22pm January 15, 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 [...] 31, 2025 8:57am Nausea and vomiting during [facility] 2024 8:57am March 31, 2025 8:57am Supervision of high-risk Septe mb2024 8:57am UTI in March 31, 2025 8:57am 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, 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 Eczema April 07, 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, 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 Nausea and vomiting during [facility] 2024 12:48pm April 07, 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 Supervision of high-risk Septe [facility] 2024 12:48pm UTI in April 07, 2025 [...] pm Nausea and vomiting during Dec 2:22pm Ingrid 27th, 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 Supervision of high-risk January [...] 31, 2025 8:57am Nausea and vomiting during [facility]2024 8:57am March 31, 2025 8:57am Supervision of high-risk Eulogio [facility] 2024 8:57am UTI in March 31, 2025 8:57am 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, 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, 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 April 07, 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 Supervision of high-risk Eulogio reyes 2024 12:48pm UTI in April 07, 2025 [...] 3: 08pm Nausea and vomiting during Aug us2024 3:08pm March 11, 2025 3: 08pm [...] 07, 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 Supervision of high-risk Eulogio amyer 2024 12:48pm UTI in April 07, 2025 [...] section and content) DATE CREATED AUTHOR 01/29/2018 [facility] DATE CREATED AUTHOR AUTHOR'S ORGANIZ ATION 04/25/2019 [facility] DATE CREATED AUTHOR AUTHOR'S ORGANIZ ATION 04/25/2019 [facility] ([place] DATE CREATED AUTHOR AUTHOR'S ORGANIZ ATION 03/30/2024 [facility] DATE CREATED AUTHOR AUTHOR'S ORGANIZ ATION 06/16/2024 [facility] DATE CREATED AUTHOR AUTHOR'S ORGANIZ ATION 02/20/2025 [facility] DATE CREATED AUTHOR AUTHOR'S ORGANIZ ATION 06/02/2025 [facility] (unrecognized sec tion and content) Team Status: Active Member Role Status Dates Ángela GOMEZ PA-C Family Provider Active PATRICIA Lizarraga Primary Care Provider Active Team Status: Inactive Member Role Status Dates Dr. Oj Ordonez MD Attending Provider, Referring Pr ovider Active Anna Marie GOMEZ PA Primary Care Provider Active Team Status: Active Member Role Status Dates PATRICIA Lizarraga Primary Care Provider Active Team Status: Inactive Member Role Status Dates PATRICIA Liazrraga Primary Care Provider Active Start: November 03, 2024 End: November 03, 2024 PATRICIA Lizarraga Referring Provider Active Start: November 03, 2024 End: November 03, 2024 Mechelle Francois VARNISH SUPERVISOR, VARNISH SUPERVISOR-C Attending Provider Active Start: November 03, 2024 [...] Status: Inactive Member Role Status Dates Anna Mariemarley Darlinger PA, PA Primary Care Provider Active [...] 2024 End: November 03, 2024 Mechelle Francois VARNISH SUPERVISOR, VARNISH SUPERVISOR-C Attending Provider Active Start: November 03, 2024 [...] Status: Inactive Member Role/Relationship Status Dates Anna Mraie Sales PA, PA Primary Care Provider Active [...] Status: Inactive Member Role/Relationship Status Dates Anna Mariemarley Darlinger PA, PA Primary Care Provider Active [...] Status: Inactive Member Role/Relationship Status Dates Anna Mariemarley Darlinger PA, PA Primary Care Provider Active [...] End: January 15, 2025 Dr. Rita Rivas , Attending Provider Activ e Start: January 15, [...] Status: Inactive Member Role/Relationship Status Dates Anna Mariemarley Darlinger PA, PA Primary Care Provider Active [...] End: March 31, 2025 Mechelle Francois NP, VARNISH SUPERVISOR-C Attending Provider Active Start: March 31, 2025 [...] End: January 15, 2025 Dr. Rita Rivas , DO Attending physician Acti ve Start: January [...] End: March 31, 2025 Mechelle Francois NP, VARNISH SUPERVISOR-C Attending physician Active Start: March 31, 2025 End: March 31, 2025 Team Status: Active Member Role/Relationship Status Dates Anna Marie Sales PA, PA Primary care physician Active Start: March 31, 2025 Mechelle Francois VARNISH SUPERVISOR, VARNISH SUPERVISOR-C Attending physician Active Start: March 31, 2025 Mechelle Francois VARNISH SUPERVISOR, VARNISH SUPERVISOR-C Referring Provider Active Start: March 31, 2025 [...] 2025 End: April 07, 2025 Mechelle Francois VARNISH SUPERVISOR, VARNISH SUPERVISOR-C Attending physician Active Start: April 07, 2025 End: April 07, 2025 Team Status: Inactive Member Role/Relationship Status Dates Anna Marie Sales PA, PA Primary care physician Active Start: March 31, 2025 End: March 31, 2025 Mechelle Francois VARNISH SUPERVISOR, VARNISH SUPERVISOR-C Attending physician Active Start: March 31, 2025 End: March 31, 2025 Mechelle Francois VARNISH SUPERVISOR, VARNISH SUPERVISOR-C Referring Provider Active Start: March 31, 2025 End: March 31, 2025 Team Status: Inactive Member Role/Relationship Status Dates Anna Marie GOMEZ, PA Primary care physician Active Start: April 07, 2025 End: April 07, 2025 Dr. Rita Rivas DO Attending physician Active Start: March End: April 07, 2025 Dr. Rita Rivas DO Referring Provider Active Start: March End: April 07, 2025 Team Status: Active Member Role/Relationship Status Dates Anna Marie GOMEZ PA Primary care physician Active Start: April 20, 2025 Mechelle Francois VARNISH SUPERVISOR, VARNISH SUPERVISOR-C Attending physician Active Start: April 20, 2025 Mechelle Francois VARNISH SUPERVISOR, VARNISH SUPERVISOR-C Referring Provider Active Start: April 20, 2025 Team Status: Inactive Member Role/Relationship Status Dates Anna Marie GOMEZ, PA Primary care physician Active Start: December 23, 2024 End: December 23, 2024 Kehinde Anand CNM Attending physician Active Start: December 23, 2024 End: December 23, 2024 Kehinde Anand CNM Referring Provider Active S tart: December 23, 2024 End: December 23, 2024 Team Status: Inactive Member Role/Relationship Status Dates Anna Marie GOMEZ, PA Primary care physician Active Start: January [...] 2025 End: January 15, 2025 Anna Marie GOMEZ, PA Referring Provider Active Start: January 15, [...] Inactive Member Role/Relationship Status Dates Anna Marie GOMEZ PA Primary care physician Active Start: March 31, 2025 End: March 31, 2025 Anna Marie GOMEZ PA Referring Provider Active Start: March 31, 2025 End: March 31, 2025 Mechelle Francois VARNISH SUPERVISOR, VARNISH SUPERVISOR-C Attending physician Active Start: March 31, 2025 End: March 31, 2025 Team Status: Inactive Member Role/Relationship Status Dates Anna Marie GOMEZ PA Primary care physician Active Start: March 31, 2025 End: March 31, 2025 Mechelle Francois VARNISH SUPERVISOR, VARNISH SUPERVISOR-C Attending physician Active Start: March 31, 2025 End: March 31, 2025 Mechelle Francois VARNISH SUPERVISOR, VARNISH SUPERVISOR-C Referring Provider Active Start: March 31, 2025 [...] 2025 End: April 07, 2025 Anna Marie GOMEZ PA Referring Provider Active Start: April 07, 2025 End: April 07, 2025 Mechelle Francois NP, VARNISH SUPERVISOR-C Attending physician Active Start: April 07, 2025 End: April 07, 2025 Team Status: Active Member Role/Relationship Status Dates Anna Marie GOMEZ PA Primary care physician Active Start: April 20, 2025 Mechelle Francois VARNISH SUPERVISOR, VARNISH SUPERVISOR-C Attending physician Active Start: April 20, 2025 Mechelle Francois VARNISH SUPERVISOR, VARNISH SUPERVISOR-C Referring Provider Active Start: April 20, 2025 Team Status: Inactive Member Role/Relationship Status Dates Anna Marie GOMEZ [...] March 31, 2025 End: March 31, 2025 PATRICIA Lizarraga Referring Provider Active Start: March 31, 2025 End: March 31, 2025 Mechelle Francois VARNISH SUPERVISOR, VARNISH SUPERVISOR-C Attending physician Active Start: March 31, 2025 End: March 31, 2025 Team Status: Inactive Member Role/Relationship Status Dates PATRICIA Lizarraga Primary care physician Active Start: March 31, 2025 End: March 31, 2025 Mechelle Francois VARNISH SUPERVISOR, VARNISH SUPERVISOR-C Attending physician Active Start: March 31, 2025 End: March 31, 2025 Mechelle Francois VARNISH SUPERVISOR, VARNISH SUPERVISOR-C Referring Provider Active Start: March 31, 2025 [...] 2025 End: April 07, 2025 Mechelle Francois VARNISH SUPERVISOR, VARNISH SUPERVISOR-C Attending physician Active Start: April 07, 2025 End: April 07, 2025 Team Status: Inactive Member Role/Relationship Status Dates PATRICIA Lizarraga Primary care physician Active Start: April 20, 2025 End: April 20, 2025 Mechelle Francois VARNISH SUPERVISOR, VARNISH SUPERVISOR-C Attending physician Active Start: April 20, 2025 End: April 20, 2025 Mechelle Francois VARNISH SUPERVISOR, VARNISH SUPERVISOR-C Referring Provider Active Start: April 20, 2025 End: April 20, 2025 Team Status: Inactive Member Role/Relationship Status Dates PATRICIA Lizarraga Primary care physician Active Start: April 22, 2025 End: April 22, 2025 PATRICIA Lizarraga Referring Provider Active Start: April 22, 2025 End: April 22, 2025 Dr. Maia Gan MD Attending physician Active Start: April 22, 2025 End: April 22, 2025 Team Status: Inactive Member Role/Relationship Status Dates PATRICIA Lizarraga Primary care physician Active Start: May 03, 2025 End: May 03, 2025 PATRICIA Lizarraga Referring Provider Active Start: May 03, 2025 [...] or prosecute any alcohol or drug abuse patient.[facility] the event this information is protected by the Federal Confidentiality of Alcohol and Drug Abuse Patient Records regulations: The Federal rules restrict any use of the information to criminally investigate or prosecute any alcohol or drug abuse patient.[facility] the event this information is protected by the Federal Confidentiality of Alcohol and Drug Abuse Patient Records regulations: The Federal rules restrict any use of the information to criminally investigate or prosecute any alcohol or drug abuse patient.[facility] the event this information is protected by the Federal Confidentiality of Alcohol and Drug Abuse Patient Records regulations: The Federal rules restrict any use of the information to criminally investigate or prosecute any alcohol or drug abuse patient.[facility] Reason for Visit (unrecogniz ed section and [...] BE BASED ON THE PRIMARY CLINICAL RECORDS. [facility]. provides no warranty or guarantee of the accuracy or completeness of information in this document.
[2025-06-11 05:32] LABS: ROM Internal Control Test YES-OK TO RESULT pt. (Internal QC)
[2025-06-11 05:34] LABS: ROM Patient Test POSITIVE (Negative); Record Kit Lot#, ROM+ K3607
--- OUTSIDE RECORDS SUMMARY | 2025-06-11 05:47 | XMS RPT_ITS | CCD ---
Author Organization [facility] Care Team Providers Care Energy Broker Name Role Phone JENY, ÁNGELA Unavailable Unavailable [...] Unavailable Unavailable Jeny MARTINEZ, Ángela D Unavailable [phone] Rich MARTINEZ, Frederic Noland Unavailable Abrahan REINOSO, Sandra Unavailable Unavailable Mandi Maldonado RN Unavailable Marine LUNA, Conchita Bazzi Unavailable Unavailable Lacy MINERAL ECONOMIST, Lloyd Ramirez Unavailable Unavailab Sandra Dewey MA Unavailable Unavailable Vess MINERAL ECONOMIST, Jaziel Dawn Unavailable Unavailable Wengerchery BRADYRita Belle Unavailable Unavailabl e Unavailable Unavailable Unavailable Unavailable Unavailable Primary Care Provider Unavailabl e ELIJAH LYMAN Attending Unavailable ELIJAH LYMAN Referring Unavailable ELIJAH LYMAN Attending Unavailable Madina Jules LPN Unavailable Unavailabl e Sales PA, [place] Primary Care Provider Sales PA, Anna Marie Referring Provider Mechelle Dan Attending Provider Kehinde Anand CNM Attending Provider [phone] Kehinde Anand CNM Referring Provider [phone] Malik SMITH, Dr. Carvalho Attending Provider [phone] Dr. Maia Gan MD Referring Provider Dr. Rita Rivas DO Attending Provider JULIANNA ANSARI Attending Unavailable KEHINDE ANAND Referring Unavailable [facility] Primary Care Unavailable BISHNU MORENO Attending Unavailable KEHINDE ANAND Referring Unavailable [facility] Primary Care Unavailable Dr. Rita Rivas DO Referring Provider [facility], [place] Primary Care Provider [facility], Anna Marie Referring Provider Dr. Rita Rivas DO Other Provider [facility], [place] Primary Care Provider Sales PA, Anna Marie Referring Provider Kehinde Anand CNM Attending Provider [phone] Kehinde Anand CNM Referring Provider Mechelle Dan Attending Provider Henrry GOMEZ [place] Primary Care Physician Kehinde Anand CNM Attending Physician Malik SMITH, Dr. Carvalho Attending Physician Dr. Rita Rivas DO Attending Physician Dr. Rita Rivas DO Nurse Practitioner Priscila OIL AND GAS SPECIALIST-C, Mechelle Attending Physician [phone] Priscila OIL AND GAS SPECIALIST-C, Mechelle Referring Provider [phone] Sales PA, Anna [...] Maia Gan Attending Unavailable Sales PA, Anna Amrie Primary Care Unavailable Maia Gan Referring Unavailable [...] Unavailable Sales PA, Anna Marie Referring Unavailable GlorietaMechelle berkowitz Attending Unavailable Sales PA, Anna Marie [...] Sales PA, Anna Marie Referring Unavailable Vande Velde, Rita Attending Unavailabl [...] topical cream ; (1.5 %) triamcinolone acetonide 0.51060 mg/mg topical ointment (20 sources) Corticosteroid Start: [...] Drug Class(es) Dates Sig (Normalized) Sig (Original) [id number] actuat albuterol 0.09 mg/actuat metered dose [...] {Packet} Refills: 1 Ordered: 17-Oct-2023 MD Alex Stcok Start: 17-Oct-2023 Start: 10-16-2023 Sprintec (28) 0.25 [...] was treated with Cefdinir last week by [facility] but does not seem to be [...] Note for Upper respiratory infection: Pt. saw [facility] 10/04/16 and was diagnosed with r.o.m.and [...] and cefdinir (diagnosed with bronchitis 04/04/16 per [facility])) and pt is continuing to use [...] Care (Patient was seen on 11/05/2015 at [facility] with Dr. Dick for a concussion [...] last year. 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 09-07-2010 Unclassified (20 sources) Cough - Mom [...] Care (Patient was seen on 11/05/2015 at [facility] with Dr. Dick for a concussion [...] from that time to when she saw CMM OPERATOR in [place] it was higher. Hot flashes are more in the evenings - cheeks are bright red and warm and then rest of body can do that.Saw CMM OPERATOR for pain with intercourse - some improvement [...] Name Value Interpretation Reference Range Facil ity Excavating Machine Operator Office Visit Reporton 06-01-2025 Excavating Machine Operator Office Visit Report [facility] [address], [address] [place] [address] OFFICE VISIT Date of Service: 06/01/25 MR#: [id number] Acct: [id number] Name: CHERY MCKEON Rep #: [id number] : 2000 Provider: GISELA Franks ams Age/Sex: 24/F [place] [facility]: Signed Intake Vital Signs 04/07/25 12:52 05/20/25 13:55 06/01/25 13:02 06/01/25 13:03 Height 5 ft 5 in 5 ft 5 in 5 ft 5 in 5 ft 5 in Weight: 186 lb BMI 30.9 BP 121/84 H Intake Visit Reasons: 36 wk ob Life Management Teacher Required: No Is patient in pain?: No [...] Negative : No PFSH PFSH Surgical History Cataldo teeth removed S/P cholecystectomy Family History Grandfather Prostate cancer Grandmother Colon cancer CVA (cerebral vascular accident) Grandmother Dementia Father Diabetes Myocardial infarction Skin cancer Mother Heart disease Thyroid disorder Social History adopted: No household members: spouse housing: house current occupational status: employed current occupation: [employer] current occupational exposures/hazards: No pets and animals: [...] 1-2 times per week duration: 15-30 minutes/day guy/temple: Christianity seatbelt use: always do you feel safe at home: Yes 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 Normal [facility] OB Limited With Biometricson 05-28-2025 OB Limited With Biometrics [facility] Services [address] [place], [place] [id number] OB Limited With Biometrics MR#: [id number] Acct: [id number] Name: CHERY MCKEON Rep #: [id number] : 2000 F 24 From: Yrn huertas MD PCP: PATRICIA Mckoy Status: [facility] CLI Study: OB Limited With Biometrics Date of Exam: 05/28 Exam# [id number] Ordering Dr: Maia Gan PROCEDURE: OB LIMITED [...] gestational age of 35 weeks. Reading Location: [facility] CC: Dr. Maia Gan MD; PATRICIA Mckoy Finisher Hand: Signed Normal [facility] Excavating Machine Operator Office Visit Reporton 05-20-2025 Excavating Machine Operator Office Visit Report [facility] [address], [facility] [address] [place] [address] OFFICE VISIT Date of Service: 05/20/25 MR#: [id number] Acct: [id number] Name: CHERY MCEKON Rep #: [id number] : 2000 Provider: Dr. Maia dubois MD Age/Sex: 24/F [place] [facility] [place] Status: Signed Intake Vital Signs 04/07/25 12:52 05/03/25 09:28 05/20/25 13:55 Height 5 ft 5 in 5 ft 5 in 5 ft 5 in Weight: 188 lb 1 oz BMI 31.3 BP 131/83 H Intake Visit Reasons: 34 wk ob Life Management Teacher Required: No Is patient in pain?: No [...] Negative : No PFSH PFSH Surgical History Cataldo teeth removed S/P cholecystectomy Family History Grandfather Prostate cancer Grandmother Colon cancer CVA (cerebral vascular accident) Grandmother Dementia Father Diabetes Myocardial infarction Skin cancer Mother Heart disease Thyroid disorder Social History adopted: No household members: spouse housing: house current occupational status: employed current occupation: [employer] current occupational exposures/hazards: No pets and animals: [...] 1-2 times per week duration: 15-30 minutes/day guy/temple: Christianity seatbelt use: always do you feel safe at home: Yes 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 Normal [facility] Laboratory - Chemistry and C hemistry - challengeOrdered By: Rita Damon on 05-03-2025 Glucose Ql (U) Negative [facility] - UrinalysisOrder ed By: Rita Damon on 05-03-2025 Protein Ql (U) Negative [facility] Excavating Machine Operator Office Visit Reporton 05-03-2025 Excavating Machine Operator Office Visit Report [facility] [address], [address] [place] [address] OFFICE VISIT Date of Service: 05/03/25 MR#: [id number] Acct: [id number] Name: CHERY MCKEON Rep #: [id number] : 2000 Provider: Dr. Rita Warner DO Age/Sex: 24/F [place] [facility] [place]: Signed Intake Vital Signs 03/11/25 15:18 04/22/25 15:56 05/03/25 09:28 05/03/25 09:28 Height 5 ft 5 in 5 ft 5 in 5 ft 5 in 5 ft 5 in Weight: 182 lb BMI 30.2 BP 118/81 H Intake Visit Reasons: 32 WK OB Life Management Teacher Required: No Is patient in pain?: No [...] Negative : No PFSH PFSH Surgical History Cataldo teeth removed S/P cholecystectomy Family History Grandfather Prostate cancer Grandmother Colon cancer CVA (cerebral vascular accident) Grandmother Dementia Father Diabetes Myocardial infarction Skin cancer Mother Heart disease Thyroid disorder Social History adopted: No household members: spouse housing: house current occupational status: employed current occupation: [employer] current occupational exposures/hazards: No pets and animals: [...] 1-2 times per week duration: 15-30 minutes/day guy/temple: Christianity seatbelt use: always do you feel safe at home: Yes 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 -???-???-???- (more content not included)... Normal [facility] - Chemistry and C hemistry - challengeOrdered By: Maia Gan on 04-22-2025 Glucose Ql (U) Negative [facility] - UrinalysisOrder ed By: Maia Gan on 04-22-2025 Protein Ql (U) Negative [facility] Excavating Machine Operator Office Visit Reporton 04-22-2025 Excavating Machine Operator Office Visit Report [facility] [address], [address] [place] [address] OFFICE VISIT Date of Service: 04/22/25 MR#: [id number] Acct: [id number] Name: CHERY MCKEON Rep #: [id number] : 2000 Provider: Dr. Maia dubois MD Age/Sex: 24/F [place] [facility] [place]: Signed Intake Vital Signs 03/11/25 15:18 04/07/25 12:52 04/22/25 15:56 Height 5 ft 5 in 5 ft 5 in 5 ft 5 in Weight: 176 lb 3 oz 179 lb BMI 29.3 29.7 BP 117/80 119/81 H Intake Visit Reasons: 30 WK OB Life Management Teacher Required: No Is patient in pain?: No [...] Negative : No PFSH PFSH Surgical History Cataldo teeth removed S/P cholecystectomy Family History Grandfather Prostate cancer Grandmother Colon cancer CVA (cerebral vascular accident) Grandmother Dementia Father Diabetes Myocardial infarction Skin cancer Mother Heart disease Thyroid disorder Social History adopted: No household members: spouse housing: house current occupational status: employed current occupation: [employer] current occupational exposures/hazards: No pets and animals: [...] 1-2 times per week duration: 15-30 minutes/day guy/temple: Christianity seatbelt use: always do you feel safe at home: Yes 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 declines (more content not included)... Normal [facility] Gestational GTT 3HR 100gon 0 04-20-2025 GEST GTT 100gm Normal [facility] Comment on above: Order Comment: Y Result Comment: FAST ING 89 Col: 04/20/25 0715 GLUCOSE TOLERANCE TEST FOR Reference Interval GESTATIONAL DIABETES Fasting <105 mg/dL 1 hour <190 mg/dl 2 hour <165 mg/dl 3 hour <145 mg/dl 1 HR GLU Col: 04/20/25 0814 2 HR GLU Col: 04/20/25 0914 3 HR GLU Col: 04/20/25 1014 Performed By: #### M 100.2200 #### [facility] [address] [place], [place], [address] Quantitative serum or plasma 3 hour gestational glucose tolerance panelOrdered By: Mechelle Francois on 04-20-2025 Glucose tolerance 3 hours gestational panel See comment [facility] Comment on above: FASTING 89 Col: 03/24 0715GLUCOSE TOLERANCE TEST FOR Reference Interval GESTATIONAL DIABETES Fasting <105 mg/dL 1 hour <190 mg/dl 2 hour <165 mg/dl 3 hour <145 mg/dl Urine Cultureon 04-09-2025 URC Below infection level. Mixed Gram Positive Organisms [place] Count 1000-10,000 MIXC Mixed contaminants. Submit a new specimen if indicated. Normal [facility] Comment on above: Performed By: #### M 100.2200 #### [facility] [address] [place], [place], [address] Absolute lymphocyte countOrd ered By: Mechelle Francois on 04-07-2025 Lymphocytes Auto (Unsp spec) [#/Vol] 1.08 10*3/uL 0.83-4.51 [facility] Absolute neutrophil countOrd ered By: Mechelle Francois on 04-07-2025 Neutrophils (Bld) [#/Vol] 9.1 10*3/uL High 2.0-7.7 [facility] Automated lymphocyte count a s percentage of total leukocytesOrdered By: Mechelle Francois on 04-07-2025 Lymphocytes/100 WBC Auto (Unsp spec) 9.6 % Low 19-41 [facility] Basophil percentageOrdered B y: Mechelle Francois on 04-07-2025 Basophils/100 WBC (Bld) 0.3 % 0-1 [facility] CBC W/Diff, Automatedon 03-22 Absolute Lymph 1.08 X10 3/uL Normal 0.83-4.51 [facility] Comment on above: Performed By: #### L 100.0100, L509.8002, L3890.6006, L501.0250, BTS #### [facility] [address] [place], [address] Absolute Neut 9.1 X10 3/uL High 2.0-7.7 [facility] Comment on above: Performed By: #### L 100.0100, L509.8002, L3890.6006, L501.0250, BTS #### [facility] [address] [place], [address] Basophils/100 WBC (Bld) 0.3 % Normal 0-1 [facility] Comment on above: Performed By: #### L 100.0100, L509.8002, L3890.6006, L501.0250, BTS #### [facility] [address] [place], [address] Eosinophils/100 WBC (Bld) 0.8 % Normal 0-5 [facility] Comment on above: Performed By: #### L 100.0100, L509.8002, L3890.6006, L501.0250, BTS #### [facility] [address] [place], [address] Erythrocyte distribution width (RBC) [Ratio] 12.6 % Normal 11.6-14.6 [facility] Comment on above: Performed By: #### L 100.0100, L509.8002, L3890.6006, L501.0250, BTS #### [facility] [address] [place], [address] Hematocrit (Bld) [Volume fraction] 32.8 % Low 37-47 [facility] Comment on above: Performed By: #### L 100.0100, L509.8002, L3890.6006, L501.0250, BTS #### [facility] [address] [place], [address] Hemoglobin (Bld) [Mass/Vol] 11.6 g/dL Low 12.0-15.0 [facility] Comment on above: Performed By: #### L 100.0100, L509.8002, L3890.6006, L501.0250, BTS #### [facility] [address] [place], [address] IG% 0.600 Normal 0.0-0.9 [facility] Comment on above: Result Comment: IG% - Immature Granulocytes (promyelocytes, myelocytes and metamyelocytes) > 1% indicates that a LEFT SHIFT is Present. Performed By: #### L 100.0100, L509.8002, L3890.6006, L501.0250, BTS #### [facility] [address] [place], [address] Lymphocytes/100 WBC (Bld) 9.6 % Low 19-41 [facility] Comment on above: Performed By: #### L 100.0100, L509.8002, L3890.6006, L501.0250, BTS #### [facility] [address] [place], [address] MCH (RBC) [Entitic mass] 31.4 pg Normal 27.0-32.0 [facility] Comment on above: Performed By: #### L 100.0100, L509.8002, L3890.6006, L501.0250, BTS #### [facility] [address] [place], [address] MCHC (RBC) [Mass/Vol] 35.4 g/dL Normal 32-36 [facility] Comment on above: Performed By: #### L 100.0100, L509.8002, L3890.6006, L501.0250, BTS #### [facility] [address] [place], [address] MCV (RBC) [Entitic vol] 88.6 fL Normal 81-99 [facility] Comment on above: Performed By: #### L 100.0100, L509.8002, L3890.6006, L501.0250, BTS #### [facility] [address] [place], [address] Monocytes/100 WBC (Bld) 7.7 % Normal 0-10 [facility] Comment on above: Performed By: #### L 100.0100, L509.8002, L3890.6006, L501.0250, BTS #### [facility] [address] [place], [address] Neutrophils/100 WBC (Bld) 81.0 % High 47-70 [facility] Comment on above: Performed By: #### L 100.0100, L509.8002, L3890.6006, L501.0250, BTS #### [facility] [address] [place], [address] Nucleated RBC (Bld) [#/Vol] 0 10*3/uL Normal 0-5 [facility] Comment on above: Performed By: #### L 100.0100, L509.8002, L3890.6006, L501.0250, BTS #### [facility] [address] [place], [address] Platelet mean volume (Bld) [Entitic vol] 9.1 fL Normal 6.2-12.0 [facility] Comment on above: Performed By: #### L 100.0100, L509.8002, L3890.6006, L501.0250, BTS #### [facility] [address] [place], [address] Platelets (Bld) [#/Vol] 299 10*3/uL Normal 150-450 [facility] Comment on above: Performed By: #### L 100.0100, L509.8002, L3890.6006, L501.0250, BTS #### [facility] [address] [place], [address] RBC (Bld) [#/Vol] 3.70 10*6/uL Low 4.2-5.4 [facility] Comment on above: Performed By: #### L 100.0100, L509.8002, L3890.6006, L501.0250, BTS #### [facility] [address] [place], [address] RDW SD 40.8 fl Normal 35.1-43.9 [facility] Comment on above: Performed By: #### L 100.0100, L509.8002, L3890.6006, L501.0250, BTS #### [facility] [address] [place], [address] WBC (Bld) [#/Vol] 11.3 10*3/uL High 4.4-11.0 [facility] Comment on above: Performed By: #### L 100.0100, L509.8002, L3890.6006, L501.0250, BTS #### [facility] [address] [place], [address] Eosinophil percentageOrdered By: Mechelle Francois on 04-07-2025 Eosinophils/100 WBC (Bld) 0.8 % 0-5 [facility] Erythrocyte distribution wid th ratioOrdered By: Mechelle Francois on 04-07-2025 Erythrocyte distribution width (RBC) [Ratio] 12.6 % 11.6-14.6 [facility] Erythrocyte distribution wid th standard deviationOrdered By: Mechelle Francois on 04-07-2025 Erythrocyte distribution width (RBC) [Ratio] 40.8 fl 35.1-43.9 [facility] Glucose Challenge Gest 1H 50 joaquin 04-07-2025 GLU GEST 50g 1H 158 mg/dL High 70-140 [facility] Comment on above: Performed By: #### L 100.0100, L509.8002, L3890.6006, L501.0250, BTS #### [facility] [address] [facility] [place], [address] Glucose measurement at 2 cornelio rs post-dose gestational glucose tolerance testOrdered By: Mechelle Francois on 04-07-2025 Glucose [Mass/Vol] 158 mg/dL High 70-140 [facility] HIVon 04-07-2025 HIV Non-Reactive Normal Nonreactive [facility] Comment on above: Result Comment: Non- Reactive Reactive Repeatedly reactive samples must be confirmed according to CDC recommended confirmatory algorithms. The subresults for either HIVAG or AHIV can be used as an aid in the selection of the confirmation algorithm for reactive samples. Send out specimens with Reactive results to [facility] for confirmation. Order the HIV antibody detection and differentiation: #[id number] Performed By: #### L 100.0100, L509.8002, L3890.6006, L501.0250, BTS #### [facility] [address] [place], [place], [address] Hematocrit Auto (Bld) [Volum e fraction]Ordered By: Mechelle Francois on 04-07-2025 Hematocrit (Bld) [Volume fraction] 32.8 % Low 37-47 [facility] Hemoglobin measurementOrdere d By: Mechelle Francois on 04-07-2025 Hemoglobin (Bld) [Mass/Vol] 11.6 g/dL Low 12.0-15.0 [facility] Immature granulocytes/100 WB C Auto (Bld)Ordered By: Mechelle Francois on 04-07-2025 Immature granulocytes/100 WBC (Bld) 0.600 % 0.0-0.9 [facility] Comment on above: IG% - Immature Granu locytes (promyelocytes, myelocytes and metamyelocytes) > 1% indicates that a LEFT SHIFT is Present. Laboratory - Chemistry and C hemistry - challengeOrdered By: Mechelle Francois on 04-07-2025 Glucose Ql (U) Negative [facility] - UrinalysisOrder ed By: Mechelle Francois on 04-07-2025 Protein Ql (U) Negative [facility] MCV (mean corpuscular volume ) determinationOrdered By: Mechelle Francois on 04-07-2025 MCV (RBC) [Entitic vol] 88.6 fL 81-99 [facility] Mean corpuscular hemoglobin (MCH) determinationOrdered By: Mechelle Francois on 04-07-2025 MCH (RBC) [Entitic mass] 31.4 pg 27.0-32.0 [facility] Mean corpuscular hemoglobin concentration (MCHC) determinationOrdered By: Mechelle Francois on 04-07-2025 MCHC (RBC) [Mass/Vol] 35.4 g/dL 32-36 [facility] Mean platelet volume determi nationOrdered By: Mechelle Francois on 04-07-2025 Platelet mean volume (Bld) [Entitic vol] 9.1 fL 6.2-12.0 [facility] Monocyte percentageOrdered B y: Mechelle Francois on 04-07-2025 Monocytes/100 WBC (Bld) 7.7 % 0-10 [facility] Neutrophil percentageOrdered By: Mechelle Francois on 04-07-2025 Neutrophils/100 WBC (Bld) 81.0 % High 47-70 [facility] No Panel InformationOrdered By: Mechelle Francois on 04-07-2025 HIV (1&2) Antibody Non-Reactive Nonreactive [facility] Comment on above: Non-ReactiveReactive Repeatedly reactive samples must be confirmed according to CDC recommended confirmatory algorithms. The subresults for either HIVAG or AHIV can be used as an aid in the selection of the confirmation algorithm for reactive samples.Send out specimens with Reactive results to [facility] for confirmation.Order the HIV antibody detection and differentiation: #[id number] Nucleated red blood cell per centageOrdered By: Mechelle Francois on 04-07-2025 Nucleated RBC/100 WBC (Bld) [Ratio] 0 % 0-5 [facility] Excavating Machine Operator Office Visit Reporton 04-07-2025 Excavating Machine Operator Office Visit Report [facility] [address], [address] [place] [address] OFFICE VISIT Date of Service: 04/07/25 MR#: [id number] Acct: [id number] Name: CHERY MCKEON Rep #: [id number] : 2000 Provider: CHANG church Age/Sex: 24/F [place] [facility] [place] Status: Signed Intake Vital Signs 02/09/25 10:58 03/31/25 09:03 04/07/25 12:52 Height 5 ft 5 in 5 ft 5 in 5 ft 5 in Weight: 176 lb 3 oz BMI 29.3 BP 117/80 Intake Visit Reasons: 28 WK OB/GLUCOSE Chief Complaint: 28 Week OB/Glucose Life Management Teacher Required: No Is patient in pain?: No [...] Negative : Yes PFSH PFSH Surgical History Cataldo teeth removed S/P cholecystectomy Family History Grandfather Prostate cancer Grandmother Colon cancer CVA (cerebral vascular accident) Grandmother Dementia Father Diabetes Myocardial infarction Skin cancer Mother Heart disease Thyroid disorder Social History adopted: No household members: spouse housing: house current occupational status: employed current occupation: [employer] current occupational exposures/hazards: No pets and animals: [...] 1-2 times per week duration: 15-30 minutes/day guy/temple: Christianity seatbelt use: always do you feel safe at home: Yes 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 (more content not included)... Normal [facility] Platelet countOrdered By: Pito Francois on 04-07-2025 Platelets (Bld) [#/Vol] 299 10*3/uL 150-450 [facility] RBC Auto (Bld) [#/Vol]Ordere d By: Mechelle Francois on 04-07-2025 RBC (Bld) [#/Vol] 3.70 10*6/uL Low 4.2-5.4 [facility] Syphilis Antibodieson 2024 Syphilis Abs Non-Reactive Normal Nonreactive [facility] Comment on above: Performed By: #### L 100.0100, L509.8002, L3890.6006, L501.0250, BTS #### [facility] [address] [place], [place], [id number] Type AND Screenon 04-07-2025 Ab SCREEN GEL Negative Normal [facility] Comment on above: Order Comment: PN Performed By: #### L 100.0100, L509.8002, L3890.6006, L501.0250, BTS #### [facility] [address] [place], [place], [address] Urine cultureOrdered By: Dada Francois on 04-07-2025 Bacteria identified Cx Nom (U) Positive Abnormal [facility] White blood cell (WBC) count Ordered By: Mechelle Francois on 04-07-2025 WBC (Bld) [#/Vol] 11.3 10*3/uL High 4.4-11.0 [facility] Urine Cultureon 04-03-2025 [facility] Urine Culture Staphylococcus epidermidis [place] Count 80,000-100,000 Mixed Gram Positive Organisms Mixed [...] S Vancomycin Islt TAYLOR 1 S Normal [facility] Comment on above: Performed By: #### M 100.5889 #### [facility] [address] [place], [address] Laboratory - Chemistry and C hemistry - challengeOrdered By: Mechelle Francois on 03-31-2025 Bilirubin Ql (U) Negative [facility] Glucose Ql (U) Negative [facility] Ketones Ql (U) Negative [facility] pH (U) 5.0 [pH] [facility] Specific gravity (U) [Rel density] 1.025 [facility] Urobilinogen (U) [Mass/Vol] 0.2999026 mg/dL [facility] Laboratory - Hematology and Cell countsOrdered By: Mechelle Francois on 03-31-2025 Hemoglobin Ql (U) Moderate [facility] - Specimen inform ationOrdered By: Mechelle Francois on 03-31-2025 Clarity (U) Cloudy [facility] Color (U) Yellow [facility] - UrinalysisOrder ed By: Mechelle Francois on 03-31-2025 Nitrite Ql (U) Negative [facility] Protein Ql (U) Trace [facility] No Panel InformationOrdered By: Mechelle Francois on 03-31-2025 Urine Leukocytes Positive [facility] Urine Non-Hemolyzed Blood Trace [facility] Excavating Machine Operator Office Visit Reporton 03-31-2025 Excavating Machine Operator Office Visit Report [facility], [address] [place] [address] OFFICE VISIT Date of Service: 03/31/25 MR#: [id number] Acct: [id number] Name: CHERY MCKEON Rep #: [id number] : 2000 Provider: [employer] Age/Sex: 24/F [place] [facility] [place]: Signed Intake Vital Signs 03/11/25 15:18 03/30/25 15:50 03/31/25 09:01 03/31/25 09:03 Height 5 ft 5 in 5 ft 5 in 5 ft 5 in 5 ft 5 in Weight: 179 lb 5 oz BMI 29.8 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 Please send antibiotic to [facility] in [place]. 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 Normal [facility] Urine cultureOrdered By: Dada Francois on 03-31-2025 Bacteria identified Cx Nom (U) Staphylococcus epidermidis Abnormal [facility] Bacteria identified Cx Nom (U) Positive Abnormal [facility] Absolute lymphocyte countOrd ered By: Kehinde Anand on 03-11-2025 Lymphocytes Auto (Unsp spec) [#/Vol] 1.33 10*3/uL 0.83-4.51 [facility] Absolute neutrophil countOrd ered By: Kehinde Anand on 03-11-2025 Neutrophils (Bld) [#/Vol] 9.7 10*3/uL High 2.0-7.7 [facility] Anion gap in Serum or Plasma Ordered By: Kehinde Anand on 03-11-2025 Anion gap [Moles/Vol] 13 mmol/L 5-15 [facility] Automated blood erythrocyte countOrdered By: Kehinde Anand on 03-11-2025 RBC (Bld) [#/Vol] 3.68 10*6/uL Low 4.2-5.4 [facility] Comment on above: Performed By: #### L 500.4050, L100.0100, L501.9520 #### [facility] [place], [address] Automated blood hematocrit ( percentage)Ordered By: Kehinde Anand on 03-11-2025 Hematocrit (Bld) [Volume fraction] 33.1 % Low 37-47 [facility] Comment on above: Performed By: #### L 500.4050, L100.0100, L501.9520 #### [facility] [address] [place], [address] Automated lymphocyte count a s percentage of total leukocytesOrdered By: Kehinde Vlad on 03-11-2025 Lymphocytes/100 WBC Auto (Unsp spec) 10.9 % Low 19-41 [facility] BUN/creatinine ratioOrdered By: Kehinde Vlad on 03-11-2025 Urea nitrogen/Creatinine [Mass ratio] 11.9 mg/mg 10-20 [facility] Basophil percentageOrdered B y: Kehinde Anand on 03-11-2025 Basophils/100 WBC (Bld) 0.2 % Normal 0-1 [facility] Comment on above: Performed By: #### L 500.4050, L100.0100, L5.9520 #### [facility] [address] [place], [address] Bilirubin, totalOrdered By: Kehinde Anand on 03-11-2025 Bilirubin [Mass/Vol] 0.20 mg/dL 0.00-1.30 [facility] CBC W/Diff, Automatedon 02-20 Absolute Lymph 1.33 X10 3/uL Normal 0.83-4.51 [facility] Comment on above: Performed By: #### L 500.4050, L100.0100, L501.9520 #### [facility] [address] [place], [address] Absolute Neut 9.7 X10 3/uL High 2.0-7.7 [facility] Comment on above: Performed By: #### L 500.4050, L100.0100, L501.9520 #### [facility] [address] [place], [address] IG% 0.800 Normal 0.0-0.9 [facility] Comment on above: Result Comment: IG% - Immature Granulocytes (promyelocytes, myelocytes and metamyelocytes) > 1% indicates that a LEFT SHIFT is Present. Performed By: #### L 500.4050, L100.0100, L501.9520 #### [facility] [address] [place], [address] Lymphocytes/100 WBC (Bld) 10.9 % Low 19-41 [facility] Comment on above: Performed By: #### L 500.4050, L100.0100, L501.9520 #### [facility] [address] [place], [address] Nucleated RBC (Bld) [#/Vol] 0 10*3/uL Normal 0-5 [facility] Comment on above: Performed By: #### L 500.4050, L100.0100, L501.9520 #### [facility] [address] [place], [address] RDW SD 43.5 fl Normal 35.1-43.9 [facility] Comment on above: Performed By: #### L 500.4050, L100.0100, L501.9520 #### [facility] [address] [place], [address] Carbon dioxide, total [Moles /volume] in Central venous bloodOrdered By: Kehinde Anand on 03-11-2025 CO2 [Moles/Vol] 20.7 mmol/L Low 21.0-32.0 [facility] Chloride assayOrdered By: Jose Luis Anand on 03-11-2025 Chloride [Moles/Vol] 105 mmol/L 98-108 [facility] Comprehensive Metabolic Prof ilon 03-11-2025 Albumin [Mass/Vol] 3.8 g/dL Normal 3.5-5.0 [facility] Comment on above: Performed By: #### L 500.4050, L100.0100, L501.9520 #### [facility] [address] [place], [address] Albumin/Globulin [Mass ratio] 1.6 {ratio} Normal 0.9-2.4 [facility] Comment on above: Performed By: #### L 500.4050, L100.0100, L501.9520 #### [facility] [address] [place], [address] ALK PHOS 65 U/L Normal 35-104 [facility] Comment on above: Performed By: #### L 500.4050, L100.0100, L501.9520 #### [facility] [address] [place], [address] ALT [Catalytic activity/Vol] 9 U/L Normal <=34 [facility] Comment on above: Performed By: #### L 500.4050, L100.0100, L501.9520 #### [facility] [address] [place], [address] AST [Catalytic activity/Vol] 14 U/L Normal <=31 [facility] Comment on above: Performed By: #### L 500.4050, L100.0100, L501.9520 #### [facility] [address] [place], [address] Bilirubin [Mass/Vol] 0.20 mg/dL Normal 0.00-1.30 [facility] Comment on above: Performed By: #### L 500.4050, L100.0100, L501.9520 #### [facility] [address] [place], [address] BUN/CRE 11.9 RATIO Normal 10-20 [facility] Comment on above: Performed By: #### L 500.4050, L100.0100, L501.9520 #### [facility] [address] [place], [address] Calcium [Mass/Vol] 9.2 mg/dL Normal 7.6-11.0 [facility] Comment on above: Performed By: #### L 500.4050, L100.0100, L501.9520 #### [facility] [address] [place], [address] Chloride [Moles/Vol] 105 mmol/L Normal 98-108 [facility] Comment on above: Performed By: #### L 500.4050, L100.0100, L501.9520 #### [facility] [address] [place], [address] CO2 [Moles/Vol] 20.7 mmol/L Low 21.0-32.0 [facility] Comment on above: Performed By: #### L 500.4050, L100.0100, L501.9520 #### [facility] [address] [place], [address] Creatinine [Mass/Vol] 0.45 mg/dL Low 0.70-1.20 [facility] Comment on above: Performed By: #### L 500.4050, L100.0100, L501.9520 #### [facility] [address] [place], [address] GAP 13 Normal 5-15 [facility] Comment on above: Performed By: #### L 500.4050, L100.0100, L501.9520 #### [facility] [address] [place], [address] GFR/1.73 sq M.predicted among non-blacks MDRD (S/P/Bld) [Vol rate/Area] 138 mL/min/{1.73_m2} Normal >60 [facility] Comment on above: Result Comment: mL/m in/1.73m2 CKD-EPI Creatinine Equation (2020) Performed By: #### L 500.4050, L100.0100, L501.9520 #### [facility] [address] [place], [address] Globulin (S) [Mass/Vol] 2.4 g/dL Normal 2.2-4.2 [facility] Comment on above: Performed By: #### L 500.4050, L100.0100, L501.9520 #### [facility] [address] [place], [address] Glucose [Mass/Vol] 103 mg/dL High 70-99 [facility] Comment on above: Performed By: #### L 500.4050, L100.0100, L501.9520 #### [facility] [address] [place], [address] Potassium [Moles/Vol] 4.5 mmol/L Normal 3.3-5.1 [facility] Comment on above: Performed By: #### L 500.4050, L100.0100, L501.9520 #### [facility] [address] [place], [address] Sodium [Moles/Vol] 138 mmol/L Normal 133-145 [facility] Comment on above: Performed By: #### L 500.4050, L100.0100, L501.9520 #### [facility] [address] [place], [address] T PROT 6.2 g/dL Normal 5.9-8.4 [facility] Comment on above: Performed By: #### L 500.4050, L100.0100, L501.9520 #### [facility] [address] [place], [address] Urea nitrogen [Mass/Vol] 5 mg/dL Normal 4-19 [facility] Comment on above: Performed By: #### L 500.4050, L100.0100, L501.9520 #### [facility] [address] [place], [address] Eosinophil percentageOrdered By: Kehinde Anand on 03-11-2025 Eosinophils/100 WBC (Bld) 0.7 % Normal 0-5 [facility] Comment on above: Performed By: #### L 500.4050, L100.0100, L501.9520 #### [facility] [address] [place], [address] Erythrocyte distribution wid th ratioOrdered By: Kehinde Anand on 03-11-2025 Erythrocyte distribution width (RBC) [Ratio] 13.2 % Normal 11.6-14.6 [facility] Comment on above: Performed By: #### L 500.4050, L100.0100, L501.9520 #### [facility] [address] [place], [address] Erythrocyte distribution wid th standard deviationOrdered By: Kehidne Anand on 03-11-2025 Erythrocyte distribution width (RBC) [Ratio] 43.5 fl 35.1-43.9 [facility] Glomerular filtration rate ( GFR) estimation/1.73 sq m using serum, plasma, or whole bOrdered By: Kehinde Anand on 03-11-2025 GFR/1.73 sq M.predicted among non-blacks MDRD (S/P/Bld) [Vol rate/Area] 138 mL/min/{1.73_m2} >60 [facility] Comment on above: mL/min/1.73m2 CKD-EP I Creatinine Equation (2020) Hemoglobin measurementOrdere d By: Kehinde Anand on 03-11-2025 Hemoglobin (Bld) [Mass/Vol] 11.6 g/dL Low 12.0-15.0 [facility] Comment on above: Performed By: #### L 500.4050, L100.0100, L501.9520 #### [facility] [address] [place], [address] Immature granulocytes/100 WB C Auto (Bld)Ordered By: Kehinde Anand on 03-11-2025 Immature granulocytes/100 WBC (Bld) 0.800 % 0.0-0.9 [facility] Comment on above: IG% - Immature Granu locytes (promyelocytes, myelocytes and metamyelocytes) > 1% indicates that a LEFT SHIFT is Present. Laboratory - Chemistry and C hemistry - challengeOrdered By: Kehinde Anand on 03-11-2025 AST [Catalytic activity/Vol] 14 U/L <32 [facility] Glucose Ql (U) Negative [facility] - UrinalysisOrder ed By: Kehinde Anand on 03-11-2025 Protein Ql (U) Negative [facility] MCV (mean corpuscular volume ) determinationOrdered By: Kehinde Anand on 03-11-2025 MCV (RBC) [Entitic vol] 89.9 fL Normal 81-99 [facility] Comment on above: Performed By: #### L 500.4050, L100.0100, L501.9520 #### [facility] [address] [place], [address] Mean corpuscular hemoglobin (MCH) determinationOrdered By: Kehinde Anand on 03-11-2025 MCH (RBC) [Entitic mass] 31.5 pg Normal 27.0-32.0 [facility] Comment on above: Performed By: #### L 500.4050, L100.0100, L501.9520 #### [facility] [address] [place], [address] Mean corpuscular hemoglobin concentration (MCHC) determinationOrdered By: Kehinde Anand on 03-11-2025 MCHC (RBC) [Mass/Vol] 35.0 g/dL Normal 32-36 [facility] Comment on above: Performed By: #### L 500.4050, L100.0100, L501.9520 #### [facility] [address] [place], [address] Mean platelet volume determi nationOrdered By: Kehinde Anand on 03-11-2025 Platelet mean volume (Bld) [Entitic vol] 9.3 fL Normal 6.2-12.0 [facility] Comment on above: Performed By: #### L 500.4050, L100.0100, L501.9520 #### [facility] [address] [place], [address] Monocyte percentageOrdered B y: Kehinde Anand on 03-11-2025 Monocytes/100 WBC (Bld) 8.1 % Normal 0-10 [facility] Comment on above: Performed By: #### L 500.4050, L100.0100, L501.9520 #### [facility] [address] [place], [address] Neutrophil percentageOrdered By: Kehinde Anand on 03-11-2025 Neutrophils/100 WBC (Bld) 79.3 % High 47-70 [facility] Comment on above: Performed By: #### L 500.4050, L100.0100, L501.9520 #### [facility] [address] [place], [address] Nucleated red blood cell per centageOrdered By: Kehinde Anand on 03-11-2025 Nucleated RBC/100 WBC (Bld) [Ratio] 0 % 0-5 [facility] Excavating Machine Operator Office Visit Reporton 03-11-2025 Excavating Machine Operator Office Visit Report [facility] [address], [address] [place] [address] OFFICE VISIT Date of Service: 03/11/25 MR#: [id number] Acct: [id number] Name: CHERY MCKEON Rep #: [id number] : 2000 Provider: GISELA Franks ams Age/Sex: 24/F Location[place] [facility] [place] Status: Signed Intake Vital Signs 01/15/25 14:30 03/03/25 18:25 03/11/25 15:12 03/11/25 15:18 Height 5 ft 5 in 5 ft 5 in 5 ft 5 in 5 ft 5 in Weight: 175 lb 3 oz BMI 29.1 BP 135/86 H Intake Visit Reasons: 24wk ob Chief Complaint: 24wk OB Life Management Teacher Required: No Is patient in pain?: No [...] 09/16/24 : No PFSH PFSH Surgical History Cataldo teeth removed S/P cholecystectomy Family History Grandfather Prostate cancer Grandmother Colon cancer CVA (cerebral vascular accident) Grandmother Dementia Father Diabetes Myocardial infarction Skin cancer Mother Heart disease Thyroid disorder Social History adopted: No household members: spouse housing: house current occupational status: employed current occupation: 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 Normal [facility] Platelet countOrdered By: Jose Luis Anand on 03-11-2025 Platelets (Bld) [#/Vol] 298 10*3/uL Normal 150-450 [facility] Comment on above: Performed By: #### L 500.4050, L100.0100, L501.9520 #### [facility] [address] [place], [address] Potassium measurement (mass/ volume)Ordered By: Kehinde Anand on 03-11-2025 Potassium (Unsp spec) [Mass/Vol] 4.5 mmol/L 3.3-5.1 [facility] Serum creatinine measurement (mass/volume)Ordered By: Kehinde Anand on 03-11-2025 Creatinine [Mass/Vol] 0.45 mg/dL Low 0.70-1.20 [facility] Serum globulin measurementOr dered By: Kehinde Anand on 03-11-2025 Globulin (S) [Mass/Vol] 2.4 g/dL 2.2-4.2 [facility] Serum glucose measurement (m ass/volume)Ordered By: Kehinde Anand on 03-11-2025 Glucose [Mass/Vol] 103 mg/dL High 70-99 [facility] Serum or plasma alanine otoole otransferase (ALT) measurementOrdered By: Kehinde Anand on 03-11-2025 ALT [Catalytic activity/Vol] 9 U/L <35 [facility] Serum or plasma albumin jennifer urement (mass/volume)Ordered By: Kehinde Anand on 03-11-2025 Albumin [Mass/Vol] 3.8 g/dL 3.5-5.0 [facility] Serum or plasma albumin/glob ulin mass ratioOrdered By: Kehinde Anand on 03-11-2025 Albumin/Globulin [Mass ratio] 1.6 {ratio} 0.9-2.4 [facility] Serum or plasma alkaline mari sphatase measurementOrdered By: Kehinde Anand on 03-11-2025 ALP [Catalytic activity/Vol] 65 U/L 35-104 [facility] Serum or plasma calcium jennifer urement (mass/volume)Ordered By: Kehinde Anand on 03-11-2025 Calcium [Mass/Vol] 9.2 mg/dL 7.6-11.0 [facility] Serum or plasma urea nitroge n measurement (mass/volume)Ordered By: Kehinde Anand on 03-11-2025 Urea nitrogen [Mass/Vol] 5 mg/dL 4-19 [facility] Sodium levelOrdered By: Jackie Anand on 03-11-2025 Sodium [Moles/Vol] 138 mmol/L 133-145 [facility] TSH DL <= 0.005 mIU/L QnOrde red By: Kehinde Anand on 03-11-2025 TSH Qn 1.460 uIU/mL 0.300-4.200 [facility] Thyroid Stim Hormone (TSH)on 03-11-2025 TSH 1.460 uIU/mL Normal 0.300-4.200 [facility] Comment on above: Performed By: #### M 490.7980 #### [facility] [address] [place], [address] Total proteinOrdered By: Ashu Anand on 03-11-2025 Protein [Mass/Vol] 6.2 g/dL 5.9-8.4 [facility] White blood cell (WBC) count Ordered By: Kehinde Anand on 03-11-2025 WBC (Bld) [#/Vol] 12.2 10*3/uL High 4.4-11.0 [facility] Comment on above: Performed By: #### L 500.4050, L100.0100, L501.9520 #### [facility] [address] [place], [address] Urine Cultureon 03-05-2025 [facility] Mixed Gram Positive Organisms [place] Count >100,000 [facility] Mixed contaminants. Submit a new specimen if indicated. Normal [facility] Comment on above: Performed By: #### M 100.2200 #### [facility] [address] [place], [address] Bilirubin Test strip Ql (U)O rdered By: Rita Damon on 03-03-2025 Bilirubin Ql (U) Negative Negative [facility] Ketones Test strip Ql (U)Ord ered By: Rita Damon on 03-03-2025 Ketones Ql (U) Negative Negative [facility] Nitrite Test strip Ql (U)Ord ered By: Rita Damon on 03-03-2025 Nitrite Ql (U) Negative Negative [facility] OB Triage Physician Noteon 0 03-03-2025 OB Triage Physician Note [facility] Medical Records Department [address] [place] [address] OB Triage Physician Note 03/03/25 2349 MR#: [id number] Acct: [id number] Name: CHERY MCKEON Rep #: [id number] : 2000 24 From: Rita Rivas DO PCP: PATRICIA Mckoy Status:DEP CLI Y Location: [facility] HPI - General General Date of Admission: 03/03/25 HPI Narrative CHERY MCKEON, is a 24 y/o @ 22 weeks 6 days who presents to [facility] with abdominal pain. 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 Normal [facility] Protein Test strip Ql (U)Ord ered By: Rita Damon on 03-03-2025 Protein Ql (U) 30 mg/dl High Negative [facility] Urinalysis, Routine (Dipstic k)on 03-03-2025 BILIRUBIN URINE Negative Normal Negative [facility] Comment on above: Order Comment: DIOGENES VALENTINO TO SPECIFY Performed By: #### M 100.2200 #### [facility] [address] [place], [place], [id number] Clarity (U) Cloudy Normal Clear [facility] Comment on above: Order Comment: DIOGENES VALENTINO TO SPECIFY Performed By: #### M 100.2200 #### [facility] [address] [place], [place], [address] Color (U) Yellow Normal Yellow [facility] Comment on above: Order Comment: DIOGENES VALENTINO TO SPECIFY Performed By: #### M 100.2200 #### [facility] [address] [place], [address] GLUCOSE, UR Normal Normal Normal [facility] Comment on above: Order Comment: DIOGENES CTOR TO SPECIFY Performed By: #### M 100.2200 #### [facility] [address] [place], [address] KETONE UR Negative Normal Negative [facility] Comment on above: Order Comment: DIOGENES CTOR TO SPECIFY Performed By: #### M 100.2200 #### [facility] [address] [place], [address] LEUK ESTERASE 500 /ul Abnormal Negative [facility] Comment on above: Order Comment: DIOGENES CTOR TO SPECIFY Performed By: #### M 100.0 #### [facility] [address] [place], [address] Nitrite Ql (U) Negative Normal Negative [facility] Comment on above: Order Comment: DIOGENES CTOR TO SPECIFY Performed By: #### M 100.0 #### [facility] [address] [place], [address] OCCULT BLOOD-UR 250 /ul Abnormal Negative [facility] Comment on above: Order Comment: DIOGENES CTOR TO SPECIFY Performed By: #### M 100.2200 #### [facility] [address] [place], [address] pH UR 7.0 Normal 5.0 - 8.0 [facility] Comment on above: Order Comment: DIOGENES CTOR TO SPECIFY Performed By: #### M 100.2200 #### [facility] [address] [place], [address] PROT DIPSTX 30 mg/dl Abnormal Negative [facility] Comment on above: Order Comment: DIOGENES CTOR TO SPECIFY Performed By: #### M 100.2200 #### [facility] [address] [place], [address] SP.GR. DIPSTX 1.010 Normal 1.002-1.030 [facility] Comment on above: Order Comment: DIOGENES MICHAELOR TO SPECIFY Performed By: #### M 100.2200 #### [facility] [address] [place], [place], [id number] UROBILI Normal Normal Normal [facility] Comment on above: Order Comment: DIOGENES MICHAELOR TO SPECIFY Performed By: #### M 100.2200 #### [facility] [address] [place], [place], [id number] Urine clarityOrdered By: Rozina Damon on 03-03-2025 Clarity (U) Cloudy Clear [facility] Urine color determinationOrd ered By: Rita Damon on 03-03-2025 Color (U) Yellow Yellow [facility] Urine cultureOrdered By: Rozina Damon on 03-03-2025 Bacteria identified Cx Nom (U) Positive Abnormal [facility] Urine glucose detectionOrder ed By: Rita Damon on 03-03-2025 Glucose Ql (U) Normal mg/dl Normal [facility] Urine leukocyte esterase det ection by dipstickOrdered By: Rita Damon on 03-03-2025 Leukocyte esterase Test strip Ql (U) 500 /ul High Negative [facility] Urine pHOrdered By: Rita Damon on 03-03-2025 pH (U) 7.0 [pH] 5.0 - 8.0 [facility] Urine specific gravity measu rementOrdered By: Rita Damon on 03-03-2025 Specific gravity (U) [Rel density] 1.010 1.002-1.030 [facility] Urine urobilinogen measureme ntOrdered By: Rita Damon on 03-03-2025 Urobilinogen Ql (U) Normal mg/dl Normal [facility] NATERAon 02-18-2025 NATURA SEE SCANNED REPORT Normal [facility] Comment on above: Performed By: #### M 100.2200 #### [facility] [address] [place], [place], [address] Laboratory - Chemistry and C hemistry - challengeOrdered By: Maia Gan on 02-09-2025 Glucose Ql (U) Negative [facility] Laboratory - UrinalysisOrder ed By: Maia Nickjuwan on 02-09-2025 Protein Ql (U) Negative [facility] Excavating Machine Operator Office Visit Reporton 02-09-2025 Excavating Machine Operator Office Visit Report [facility]'s [address], [address] [place] [address] OFFICE VISIT Date of Service: 02/09/25 MR#: [id number] Acct: [id number] Name: CHERY MCKEON Rep #: [id number] : 2000 Provider: Dr. Maia dubois MD Age/Sex: 24/F [place] [facility]: Signed Intake Vital Signs 12/21/24 15:20 01/15/25 14:30 02/09/25 10:58 Height 5 ft 5 in 5 ft 5 in 5 ft 5 in Weight: 173 lb 2 oz BMI 28.8 BP 129/83 H Intake Visit Reasons: 22 wk ob Life Management Teacher Required: No Is patient in pain?: No [...] Rx promethazine 25 mg rectal 25 mg WV Q4-6H PRN nausea and 01/2002/09/25 Rx suppository vomiting #12 ea Last Menstrual Period: 09/16/24 Zika: Zika virus screening: Negative : No PFSH PFSH Surgical History Cataldo teeth removed S/P cholecystectomy Family History Grandfather Prostate cancer Grandmother Colon cancer CVA (cerebral vascular accident) Grandmother Dementia Father Diabetes Myocardial infarction Skin cancer Mother Heart disease Thyroid disorder Social History adopted: No household members: spouse housing: house current occupational status: employed current occupation: [employer] current occupational exposures/hazards: No pets and animals: [...] 1-2 times per week duration: 15-30 minutes/day guy/temple: Christianity seatbelt use: always do you feel safe at home: Yes 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 (more content not included)... Normal [facility] Laboratory - Chemistry and C hemistry - challengeOrdered By: Rita Damon on 01-15-2025 Glucose Ql (U) Negative [facility] - UrinalysisOrder ed By: Rita Damon on 01-15-2025 Protein Ql (U) Negative [facility] Excavating Machine Operator Office Visit Reporton 01-15-2025 Excavating Machine Operator Office Visit Report [facility]'s [address], [address] [place] [address] OFFICE VISIT Date of Service: 01/15/25 MR#: [id number] Acct: [id number] Name: CHERY MCKEON Rep #: [id number] : 2000 Provider: Dr. Rita Warner DO Age/Sex: 24/F [place] [facility] [place]: Signed Intake Vital Signs 11/19/24 08:43 01/06/25 12:36 01/15/25 14:30 Height 5 ft 5 in 5 ft 5 in 5 ft 5 in Weight: 171 lb 2 oz BMI 28.5 BP 124/85 H Intake Visit Reasons: 18wk ob Life Management Teacher Required: No Is patient in pain?: No [...] tabs promethazine 25 mg rectal 25 mg WV Q4-6H PRN nausea and 09/1501/15/25 Rx suppository vomiting #12 ea Last Menstrual Period: 09/16/24 Zika: Zika virus screening: Negative : No PFSH PFSH Surgical History Cataldo teeth removed S/P cholecystectomy Family History Grandfather Prostate cancer Grandmother Colon cancer CVA (cerebral vascular accident) Grandmother Dementia Father Diabetes Myocardial infarction Skin cancer Mother Heart disease Thyroid disorder Social History adopted: No household members: spouse housing: house current occupational status: employed current occupation: [employer] current occupational exposures/hazards: No pets and animals: [...] 1-2 times per week duration: 15-30 minutes/day guy/temple: Christianity seatbelt use: always do you feel safe at home: Yes 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 Normal [facility] Laboratory - Chemistry and C hemistry - challengeOrdered By: Kehinde Annad on 12-21-2024 Glucose Ql (U) Negative [facility] - UrinalysisOrder ed By: Kehinde Anand on 12-21-2024 Protein Ql (U) Negative [facility] Excavating Machine Operator Office Visit Reporton 12-21-2024 Excavating Machine Operator Office Visit Report [facility] [address], [address] [place] [address] OFFICE VISIT Date of Service: 12/21/24 MR#: [id number] Acct: [id number] Name: CHERY MCKEON Rep #: [id number] : 2000 Provider: GISELA Franks ams Age/Sex: 24/F [place] [facility]: Signed Intake Vital Signs 11/05/15 16:09 11/19/24 08:43 12/21/24 15:20 Height 5 ft 5 in 5 ft 5 in 5 ft 5 in Weight: 170 lb 6 oz 165 lb BMI 28.3 27.4 BP 130/86 H 126/86 H Intake Visit Reasons: 12wk ob Chief Complaint: 12wk OB Life Management Teacher Required: No Is patient in pain?: No [...] tabs promethazine 25 mg rectal 25 mg WV Q4-6H PRN nausea and 09/1512/21/24 Rx suppository vomiting #12 ea Last Menstrual Period: 09/16/24 PFSH PFSH Surgical History Cataldo teeth removed S/P cholecystectomy Family History Grandfather Prostate cancer Grandmother Colon cancer CVA (cerebral vascular accident) Grandmother Dementia Father Diabetes Myocardial infarction Skin cancer Mother Heart disease Thyroid disorder Social History adopted: No household members: spouse housing: house current occupational status: employed current occupation: [employer] current occupational exposures/hazards: No pets and animals: [...] 1-2 times per week duration: 15-30 minutes/day guy/temple: Christianity seatbelt use: always do you feel safe at home: Yes 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 Normal [facility] TSH DL <= 0.005 mIU/L QnOrde red By: Kehinde Anand on 12-21-2024 TSH Qn 0.814 uIU/mL 0.300-4.200 [facility] Thyroid Stim Hormone (TSH)on 12-21-2024 TSH 0.814 uIU/mL Normal 0.300-4.200 [facility] Comment on above: Performed By: #### M 100.2200 #### [facility] [address] [place], [place], [id number] [id number] 11-26-2024 [facility] Mis. COMMENT Normal . [facility] Comment on above: Order Comment: [id number] 8TSH R AB SERUM FZ Result Comment: Test Ordered: [id number] TSH Receptor Antibody (TBII) TSH Receptor Antibody (TBII) <0.3 U/L Reference Range: . Reference Range: Antibody Titer: <1.0 U/L = Negative 1.1 - 1.5 U/L = Equivocal >1.5 U/L = Positive Performed at: [facility] [address] [place] [id number] Loader Engineer: Jeronimo Holden MD, Phone: [phone] Performed at: [facility] [address] [id number] Loader Engineer: Sandeep Bae PhD, Phone: [phone] Performed By: #### M 100.2200 #### [facility] [address] [place], [address] Chlamydia/GC ANIRUDH aptimaon CHLAMY,NUC ACID Negative Normal Negative [facility] Comment on above: Performed By: #### M 100.2200 #### [facility] [address] [place], [place], [id number] GC BY NUC ACID Negative Normal Negative [facility] Comment on above: Result Comment: Perf ormed at: =G - [facility] [address] [place], [place] [id number] Loader Engineer: Alina Arreola MD, Phone: [phone] Performed By: #### M 100.2200 #### [facility] [address] [place], [place], [address] Urine Cultureon 11-21-2024 URC #1, 2 Below infection level. [facility]PC Poss Enterococcus sp [place] Count <1000 Mixed Gram Positive Organisms Mixed Gram Positive Organisms MIXC Mixed contaminants. Submit a new specimen if indicated. Normal [facility] Comment on above: Performed By: #### M 100.2200 #### [facility] [address] [place], [place], [address] Absolute lymphocyte countOrd ered By: Mechelle Francois on 11-19-2024 Lymphocytes Auto (Unsp spec) [#/Vol] 1.42 10*3/uL 0.83-4.51 [facility] Absolute neutrophil countOrd ered By: Mechellepaxton Francois on 11-19-2024 Neutrophils (Bld) [#/Vol] 5.9 10*3/uL 2.0-7.7 [facility] Automated lymphocyte count a s percentage of total leukocytesOrdered By: Mechelle Francois on 11-19-2024 Lymphocytes/100 WBC Auto (Unsp spec) 17.2 % Low 19-41 [facility] Basophil percentageOrdered B y: Mechelle Francois on 11-19-2024 Basophils/100 WBC (Bld) 0.4 % 0-1 [facility] CBC W/Diff, Automatedon Absolute Lymph 1.42 X10 3/uL Normal 0.83-4.51 [facility] Comment on above: Performed By: #### M 100.2200 #### [facility] [address] [place], [address] Absolute Neut 5.9 X10 3/uL Normal 2.0-7.7 [facility] Comment on above: Performed By: #### M 100.2200 #### [facility] [address] [place], [address] Basophils/100 WBC (Bld) 0.4 % Normal 0-1 [facility] Comment on above: Performed By: #### M 100.2200 #### [facility] [address] [place], [address] Eosinophils/100 WBC (Bld) 0.7 % Normal 0-5 [facility] Comment on above: Performed By: #### M 100.2200 #### [facility] [address] [place], [address] Erythrocyte distribution width (RBC) [Ratio] 12.2 % Normal 11.6-14.6 [facility] Comment on above: Performed By: #### M 100.2200 #### [facility] [address] [place], [address] Hematocrit (Bld) [Volume fraction] 38.9 % Normal 37-47 [facility] Comment on above: Performed By: #### M 100.2200 #### [facility] [address] [place], [address] Hemoglobin (Bld) [Mass/Vol] 13.7 g/dL Normal 12.0-15.0 [facility] Comment on above: Performed By: #### M 100.2200 #### [facility] [address] [place], [address] IG% 0.400 Normal 0.0-0.9 [facility] Comment on above: Result Comment: IG% - Immature Granulocytes (promyelocytes, myelocytes and metamyelocytes) > 1% indicates that a LEFT SHIFT is Present. Performed By: #### M 100.2200 #### [facility] [address] [place], [address] Lymphocytes/100 WBC (Bld) 17.2 % Low 19-41 [facility] Comment on above: Performed By: #### M 100.2200 #### [facility] [address] [place], [address] MCH (RBC) [Entitic mass] 30.5 pg Normal 27.0-32.0 [facility] Comment on above: Performed By: #### M 100.2200 #### [facility] [address] [place], [address] MCHC (RBC) [Mass/Vol] 35.2 g/dL Normal 32-36 [facility] Comment on above: Performed By: #### M 100.2200 #### [facility] [address] [place], [address] MCV (RBC) [Entitic vol] 86.6 fL Normal 81-99 [facility] Comment on above: Performed By: #### M 100.2200 #### [facility] [address] [place], [address] Monocytes/100 WBC (Bld) 10.0 % Normal 0-10 [facility] Comment on above: Performed By: #### M 100.2200 #### [facility] [address] [place], [address] Neutrophils/100 WBC (Bld) 71.3 % High 47-70 [facility] Comment on above: Performed By: #### M 100.2200 #### [facility] [address] [place], [address] Nucleated RBC (Bld) [#/Vol] 0 10*3/uL Normal 0-5 [facility] Comment on above: Performed By: #### M 100.2200 #### [facility] [address] [place], [address] Platelet mean volume (Bld) [Entitic vol] 9.4 fL Normal 6.2-12.0 [facility] Comment on above: Performed By: #### M 100.2200 #### [facility] [address] [place], [address] Platelets (Bld) [#/Vol] 355 10*3/uL Normal 150-450 [facility] Comment on above: Performed By: #### M 100.2200 #### [facility] [address] [place], [address] RBC (Bld) [#/Vol] 4.49 10*6/uL Normal 4.2-5.4 [facility] Comment on above: Performed By: #### M 100.2200 #### [facility] [address] [place], [address] RDW SD 38.7 fl Normal 35.1-43.9 [facility] Comment on above: Performed By: #### M 100.2200 #### [facility] [address] [place], [address] WBC (Bld) [#/Vol] 8.3 10*3/uL Normal 4.4-11.0 [facility] Comment on above: Performed By: #### M 100.2200 #### [facility] [address] [place], [address] Chlamydia trachomatis rRNA d etection by probe and target amplification methodOrdered By: Mechelle Francois on 11-19-2024 C. trachomatis rRNA ANIRUDH+probe Ql (Unsp spec) Negative Negative [facility] Eosinophil percentageOrdered By: Mechelle Francois on 11-19-2024 Eosinophils/100 WBC (Bld) 0.7 % 0-5 [facility] Erythrocyte distribution wid th ratioOrdered By: Mechelle Francois on 11-19-2024 Erythrocyte distribution width (RBC) [Ratio] 12.2 % 11.6-14.6 [facility] Erythrocyte distribution wid th standard deviationOrdered By: Mechelle Francois on 11-19-2024 Erythrocyte distribution width (RBC) [Ratio] 38.7 fl 35.1-43.9 [facility] HIVon 11-19-2024 HIV Non-Reactive Normal Nonreactive [facility] Comment on above: Result Comment: Non- Reactive Reactive Repeatedly reactive samples must be confirmed according to CDC recommended confirmatory algorithms. The subresults for either HIVAG or AHIV can be used as an aid in the selection of the confirmation algorithm for reactive samples. Send out specimens with Reactive results to [facility] for confirmation. Order the HIV antibody detection and differentiation: lc#[id number] Performed By: #### M 100.2200 #### [facility] [address] [place], [place], [address] Hematocrit Auto (Bld) [Volum e fraction]Ordered By: Mechelle Diegos on 11-19-2024 Hematocrit (Bld) [Volume fraction] 38.9 % 37-47 [facility] Hemoglobin measurementOrdere d By: Mechelle Francois on 11-19-2024 Hemoglobin (Bld) [Mass/Vol] 13.7 g/dL 12.0-15.0 [facility] Hepatitis C Antibodyon 11-19 Hepatitis C Ab Non-Reactive Normal Nonreactive [facility] Comment on above: Result Comment: Reac tive: Presumptive evidence of antibodies to HCV. Follow CDC recommendations for supplemental testing. Non-Reactive: Antibodies to HCV were not detected; does not exclude the possibility of exposure to HCV Reactive Results are presumptive evidence of antibodies to HCV. Follow CDC recommendations for supplemental testing. Order confirmation testing: HCV Quant by PCR testing - HCVPCR lc#[id number] Non Reactive: < 0.8 Equivocal: >/= 0.8 to < 1.0 Reactive: >/= 1.0 The CDC requires that a reactive/equivocal HCV antibody result be sent out for confirmation. HCV Quant by PCR testing. Performed By: #### M 100.2200 #### [facility] [address] [place], [place], [id number] Immature granulocytes/100 WB C Auto (Bld)Ordered By: Mechelle Francois on 11-19-2024 Immature granulocytes/100 WBC (Bld) 0.400 % 0.0-0.9 [facility] Comment on above: IG% - Immature Granu locytes (promyelocytes, myelocytes and metamyelocytes) > 1% indicates that a LEFT SHIFT is Present. L3890.6102on 11-19-2024 HEP B Surf Ag Non-Reactive Normal Nonreactive [facility] Comment on above: Result Comment: Reac tive: Presumptive evidence of HBV. Repeatedly reactive samples must be confirmed using a neutralization test ([employer] HBsAg Confirmatory Test) Non-Reactive: HBsAg not detected; does not exclude the possibility of exposure to HBV Performed By: #### M 100.2200 #### [facility] [address] [place], [place], [address] L509.4006on 11-19-2024 Rubella IgG REAC Normal Nonreactive [facility] Comment on above: Result Comment: Anti body Result: Interpretation Non-Reactive: Non-Immune Reactive: Immune The following results were obtained with the [employer] Rubella IgG assay. Results from assays of other manufacturers cannot be used interchangeably. Performed By: #### M 100.2200 #### [facility] [address] [place], [place], [id number] Laboratory - Microbiology an d Antimicrobial susceptibilityOrdered By: Mechelle Francois on 11-19-2024 HBV surface Ag Ql (S) Non-Reactive Nonreactive [facility] Comment on above: Reactive: Presumptiv e evidence of HBV. Repeatedly reactive samples must be confirmed using a neutralization test ([employer] HBsAg Confirmatory Test)Non-Reactive: HBsAg not detected; does not exclude the possibility of exposure to HBV MCV (mean corpuscular volume ) determinationOrdered By: Mechelle Francois on 11-19-2024 MCV (RBC) [Entitic vol] 86.6 fL 81-99 [facility] Mean corpuscular hemoglobin (MCH) determinationOrdered By: Mechelle Francois on 11-19-2024 MCH (RBC) [Entitic mass] 30.5 pg 27.0-32.0 [facility] Mean corpuscular hemoglobin concentration (MCHC) determinationOrdered By: Mechelle Francois on 11-19-2024 MCHC (RBC) [Mass/Vol] 35.2 g/dL 32-36 [facility] Mean platelet volume determi nationOrdered By: Mechelle Francois on 11-19-2024 Platelet mean volume (Bld) [Entitic vol] 9.4 fL 6.2-12.0 [facility] Monocyte percentageOrdered B y: Mechelle Francois on 11-19-2024 Monocytes/100 WBC (Bld) 10.0 % 0-10 [facility] Neisseria gonorrhoeae nuclei c acid detection by amplified probe techniqueOrdered By: Mechelle Francois on 11-19-2024 N. gonorrhoeae DNA ANIRDUH+probe Ql (Unsp spec) Negative Negative [facility] Comment on above: Performed at: =[address] [id number] Director: Alina Arreola MD, Phone: [phone] Neutrophil percentageOrdered By: Mechelle Francois on 11-19-2024 Neutrophils/100 WBC (Bld) 71.3 % High 47-70 [facility] No Panel InformationOrdered By: Mechelle Francois on 11-19-2024 HIV (1&2) Antibody Non-Reactive Nonreactive [facility] Comment on above: Non-ReactiveReactive Repeatedly reactive samples must be confirmed according to CDC recommended confirmatory algorithms. 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 [facility], [address] [place] [address] OFFICE VISIT Date of Service: 11/19/24 MR#: [id number] Acct: [id number] Name: CHERY MCKEON Rep #: [id number] : 2000 Provider: GISELA Franks ams Age/Sex: 23/F Location[place] [facility] [place] Status: Signed Intake Vital Signs 11/05/15 16:09 11/03/24 10:46 11/19/24 08:43 Height 5 ft 5 in 5 ft 5 in 5 ft 5 in Weight: 170 lb 6 oz BMI 28.3 BP 130/86 H Intake Visit Reasons: NOB LMP 09/16 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 Normal [facility] Platelet countOrdered By: Pito Francois on 11-19-2024 Platelets (Bld) [#/Vol] 355 10*3/uL 150-450 [facility] RBC Auto (Bld) [#/Vol]Ordere d By: Mechelle Francois on 11-19-2024 RBC (Bld) [#/Vol] 4.49 10*6/uL 4.2-5.4 [facility] Syphilis Antibodieson 2024 Syphilis Abs Non-Reactive Normal Nonreactive [facility] Comment on above: Performed By: #### M 100.2200 #### [facility] [address] [place], [address] T4 Free Directon 11-19-2024 T4 FREE DIRECT 1.30 ng/dL Normal 0.76-1.46 [facility] Comment on above: Performed By: #### M 100.2200 #### [facility] [address] [place], [place], [id number] T4 freeOrdered By: Mechelle berkowitz on 11-19-2024 Free T4 [Mass/Vol] 1.30 ng/dL 0.76-1.46 [facility] TSH DL <= 0.005 mIU/L QnOrde red By: Mechelle Francois on 11-19-2024 TSH Qn 3.300 uIU/mL 0.300-4.200 [facility] Thyroid Stim Hormone (TSH)on 11-19-2024 TSH 3.300 uIU/mL Normal 0.300-4.200 [facility] Comment on above: Performed By: #### M 100.2200 #### [facility] [address] [place], [place], [address] Type AND Screenon 11-19-2024 ABO and Rh group Nom (Bld) Blood group O Rh(D) positive Normal [facility] Comment on above: Order Comment: PN Performed By: #### M 100.2200 #### [facility] [address] [facility] [place], [place], [id number] Urine cultureOrdered By: Dada Francois on 11-19-2024 Bacteria identified Cx Nom (U) [facility] Poss Enterococcus sp Abnormal [facility] Bacteria identified Cx Nom (U) Positive Abnormal [facility] White blood cell (WBC) count Ordered By: Mechelle Francois on 11-19-2024 WBC (Bld) [#/Vol] 8.3 10*3/uL 4.4-11.0 [facility] Laboratory - Chemistry and C hemistry - challengeOrdered By: Mechelle Francois on 11-03-2024 HCG ( test) Ql (U) Positive [facility] Office Visit Reporton 2024 Office Visit Report [facility] [address] [place] [address] OFFICE VISIT Date of Service: 11/03/24 MR#: [id number] Acct: [id number] Patient: CHERY MCKEON Rep #: [id number] : 2000 Provider: [employer]ANG [employer] Age/Sex: 23/F [place] [facility]: Signed Intake Vital Signs 11/05/15 16:09 [...] scheduled 11/03/24 1213 Date Mechelle Francois NP [employer]IL [employer] G[employer] SPECIALIST-C Cosigner Signature: Date (if applicable) CC: Normal [facility] CBC (INCLUDES DIFF/PLT)on Basophils (Bld) [#/Vol] 0.038 10*3/uL Normal 0-200 [facility] Comment on above: Performed By: #### 6 399, 06853, 803, 393 #### [facility] of [address], [address] [place] [address] Health Safety Manager: Jimbo Sal MD Basophils/100 WBC (Bld) 0.4 % Normal [facility] Comment on above: Performed By: #### 6 399, 48920, 89, 866 #### [facility] of [address], [address] [place] [address] Health Safety Manager: Jimbo Sal MD Eosinophils (Bld) [#/Vol] 0.094 10*3/uL Normal 15-500 [facility] Comment on above: Performed By: #### 6 399, 14035, 89, 866 #### [facility] of [address], [address] [place] [address] Health Safety Manager: Jimbo Sal MD Eosinophils/100 WBC (Bld) 1.0 % Normal [facility] Comment on above: Performed By: #### 6 399, 58253, , 866 #### [facility] of [place] [address] Health Safety Manager: Jimbo Sal MD Erythrocyte distribution width (RBC) [Ratio] 12.0 % Normal 11.0-15.0 [facility] Comment on above: Performed By: #### 6 399, 67415, 89, 866 #### [facility] of [place] [address] Health Safety Manager: Jimbo Sal MD Hematocrit (Bld) [Volume fraction] 41.9 % Normal 35.0-45.0 [facility] Comment on above: Performed By: #### 6 399, 57416, , 866 #### [facility] of [place] [address] Health Safety Manager: Jimbo Sal MD Hemoglobin (Bld) [Mass/Vol] 14.1 g/dL Normal 11.7-15.5 [facility] Comment on above: Performed By: #### 6 399, 80897, , 866 #### [facility] of [address], [address] [place] [address] Health Safety Manager: Jimbo Sal MD Lymphocytes (Bld) [#/Vol] 1.645 10*3/uL Normal 850-3900 [facility] Comment on above: Performed By: #### 6 399, , , 866 #### [facility] [place] [address] Health Safety Manager: Jimbo Sal MD Lymphocytes/100 WBC (Bld) 17.5 % Normal [facility] Comment on above: Performed By: #### 6 399, , , 866 #### [facility] [place] [address] Health Safety Manager: Jimbo Sal MD MCH (RBC) [Entitic mass] 30.8 pg Normal 27.0-33.0 [facility] Comment on above: Performed By: #### 6 399, , , 866 #### [facility] [place] [address] Health Safety Manager: Jimbo Sal MD MCHC (RBC) [Mass/Vol] 33.7 [...] 399, , , 866 #### [facility] [place] [address] Health Safety Manager: Jimbo Sal MD MCV (RBC) [Entitic vol] 91.5 fL Normal 80.0-100.0 [facility] Comment on above: Performed By: #### 6 399, , , 866 #### [facility] [place] [address] Health Safety Manager: Jimbo Sal MD Monocytes (Bld) [#/Vol] 0.752 10*3/uL Normal 200-950 [facility] Comment on above: Performed By: #### 6 399, 55202, 89, 866 #### [facility] of [place] [address] Health Safety Manager: Jimbo Sal MD Monocytes/100 WBC (Bld) 8.0 % Normal [facility] Comment on above: Performed By: #### 6 399, 67245, , 866 #### [facility] of [place] [address] Health Safety Manager: Jimbo Sal MD Neutrophils (Bld) [#/Vol] 6.871 10*3/uL Normal 6146-2293 [facility] Comment on above: Performed By: #### 6 399, 74284, , 866 #### [facility] of [place] [address] Health Safety Manager: Jimbo Sal MD Neutrophils/100 WBC (Bld) 73.1 % Normal [facility] Comment on above: Performed By: #### 6 399, 11239, , 866 #### [facility] of [place] [address] Health Safety Manager: Jimbo Sal MD Platelet mean volume (Bld) [Entitic vol] 9.4 fL Normal 7.5-12.5 [facility] Comment on above: Performed By: #### 6 399, 61639, , 866 #### [facility] of [place] [address] Health Safety Manager: Jimbo Sal MD Platelets (Bld) [#/Vol] 401 10*3/uL High 140-400 [facility] Comment on above: Performed By: #### 6 399, 19160, 89, 866 #### [facility] of [place] [address] Health Safety Manager: Jimbo Sal MD RBC (Bld) [#/Vol] 4.58 10*6/uL Normal 3.80-5.10 [facility] Comment on above: Performed By: #### 6 399, 92795, 89, 866 #### [facility] of [place] [address] Health Safety Manager: Jimbo Sal MD WBC (Bld) [#/Vol] 9.4 10*3/uL Normal 3.8-10.8 [facility] Comment on above: Performed By: #### 6 399, 96131, , 866 #### [facility] of [place] [address] Health Safety Manager: Jimbo Sal MD [facility] METABOLIC [facility] 06-14-2024 Albumin [Mass/Vol] 4.6 g/dL Normal 3.6-5.1 [facility] Comment on above: Performed By: #### 6 399, 72992, , 866 #### [facility] of [place] [address] Health Safety Manager: Jimbo Sal MD Albumin/Globulin [Mass ratio] 2.1 {ratio} Normal 1.0-2.5 [facility] Comment on above: Performed By: #### 6 399, 93341, 89, 866 #### [facility] of [place] [address] Health Safety Manager: Jimbo Sal MD ALP [Catalytic activity/Vol] 47 U/L Normal 31-125 [facility] Comment on above: Performed By: #### 6 399, 41843, , 866 #### [facility] of [place] [address] Health Safety Manager: Jimbo Sal MD ALT [Catalytic activity/Vol] 16 U/L Normal 6-29 [facility] Comment on above: Performed By: #### 6 399, 30741, 89, 866 #### [facility] of [place] [address] Health Safety Manager: Jimbo Sal MD AST [Catalytic activity/Vol] 19 U/L Normal 10-30 [facility] Comment on above: Performed By: #### 6 399, 04911, 89, 866 #### [facility] [place] [address] Health Safety Manager: Jimbo Sal MD Bilirubin [Mass/Vol] 0.4 mg/dL Normal 0.2-1.2 [facility] Comment on above: Performed By: #### 6 399, 82478, , 866 #### [facility] [place] [address] Health Safety Manager: Jimbo Sal MD BUN/CREATININE RATIO SEE NOTE: Normal 6-22 [facility] Comment on above: Result Comment: Not Reported: BUN and Creatinine are within reference range. Performed By: #### 6 399, 99234, , 866 #### [facility] [place] [address] Health Safety Manager: Jimbo Sal MD Calcium [Mass/Vol] 9.9 mg/dL Normal 8.6-10.2 [facility] Comment on above: Performed By: #### 6 399, 33174, , 866 #### [facility] [place] [address] Health Safety Manager: Jimbo Sal MD Chloride [Moles/Vol] 106 mmol/L Normal 98-110 [facility] Comment on above: Performed By: #### 6 399, 82569, , 866 #### [facility] [place] [address] Health Safety Manager: Jimbo Sal MD CO2 [Moles/Vol] 24 mmol/L Normal 20-32 [facility] Comment on above: Performed By: #### 6 399, 56635, 89, 866 #### [facility] of [place] [address] Health Safety Manager: Jimbo Sal MD Creatinine [Mass/Vol] 0.70 mg/dL Normal 0.50-0.[address] [facility] Comment on above: Performed By: #### 6 399, 80317, , 866 #### [facility] [place] [address] Health Safety Manager: Jimbo Sal MD GFR/1.73 sq M.predicted among non-blacks MDRD (S/P/Bld) [Vol rate/Area] 125 mL/min/{1.73_m2} Normal > OR = 60 [facility] Comment on above: Performed By: #### 6 399, 00589, , 866 #### [facility] [place] [address] Health Safety Manager: Jimbo Sal MD Globulin (S) [Mass/Vol] 2.2 g/dL Normal 1.9-3.7 [facility] Comment on above: Performed By: #### 6 399, , , 866 #### [facility] [place] [address] Health Safety Manager: Jimbo Sal MD Glucose [Mass/Vol] 89 mg/dL Normal 65-99 [facility] Comment on above: Result Comment: Fasting reference interval Performed By: #### 6 399, 16666, , 866 #### [facility] [place] [address] Health Safety Manager: Jimbo Sal MD Potassium [Moles/Vol] 4.1 mmol/L Normal 3.5-5.[address] [facility] Comment on above: Performed By: #### 6 399, 46260, , 866 #### [facility] [place] [address] Health Safety Manager: Jimbo Sal MD Protein [Mass/Vol] 6.8 g/dL Normal 6.1-8.1 [facility] Comment on above: Performed By: #### 6 399, 14102, , 866 #### [facility] of [place] [address] Health Safety Manager: Jimbo Sal MD Sodium [Moles/Vol] 138 mmol/L Normal 135-146 [facility] Comment on above: Performed By: #### 6 399, 81264, 899, 866 #### [facility] [place] [address] Health Safety Manager: Jimbo Sal MD Urea nitrogen [Mass/Vol] 12 mg/dL Normal 7-25 [facility] Comment on above: Performed By: #### 6 399, 23986, 89, 866 #### [facility] [place] [address] Health Safety Manager: Jimbo Sal MD FERRITINon 06-14-2024 Ferritin [Mass/Vol] 19 ng/mL Normal 16-154 [facility] Comment on above: Performed By: #### 6 399, 03299, 89, 866 #### [facility] [place] [address] Health Safety Manager: Jimbo Sal MD T4, FREEon 06-14-2024 Free T4 [Mass/Vol] 1.3 ng/dL Normal 0.8-1.8 [facility] Comment on above: Performed By: #### 6 399, 02741, 899, 866 #### [facility] [place] [address] Health Safety Manager: Jimbo Sal MD TSHon 06-14-2024 TSH Qn 1.71 m[IU]/L Normal [facility] Comment on above: Result Comment: Refe rence Range > or = 20 Years 0.40-4.50 Ranges First trimester 0.26-2.66 Second trimester 0.55-2.73 Third trimester 0.43-2.91 Performed By: #### 6 399, 56786, 89, 866 #### [facility] [place] [address] Health Safety Manager: Jimbo Sal MD Laboratory - Chemistry and C hemistry - challengeon 06-12-2024 Albumin [Mass/Vol] 4.6 g/dL Normal 3.6 - 5.1 g/dL [facility], [facility] Albumin/Globulin [Mass ratio] 2.1 {ratio} Normal 1.0 - 2.5 [facility]; [facility] ALP [Catalytic activity/Vol] 47 U/L Normal 31 - 125 U/L [facility], [facility] ALT [Catalytic activity/Vol] 16 U/L Normal 6 - 29 U/L [facility], [facility] AST [Catalytic activity/Vol] 19 U/L Normal 10 - 30 U/L [facility]; [facility], [facility] Bilirubin [Mass/Vol] 0.4 mg/dL Normal 0.2 - 1.2 mg/dL [facility]; [facility], [facility] Calcium [Mass/Vol] 9.9 mg/dL Normal 8.6 - 10. 2 mg/dL [facility], [facility] Chloride [Moles/Vol] 106 mmol/L Normal 98 - 110 mmol/L [facility]; [facility], [facility] CO2 [Moles/Vol] 24 mmol/L Normal 20 - 32 mmol/L [facility]; [facility], [facility] Creatinine [Mass/Vol] 0.70 mg/dL Normal 0.50 - 0.96 mg/dL [facility], [facility] Ferritin [Mass/Vol] 19 ng/mL Normal 16 - 154 ng/mL [facility], [facility]. Free T4 [Mass/Vol] 1.3 ng/dL Normal 0.8 - 1.8 ng/dL [facility].; [facility], [facility] GFR/1.73 sq M.predicted among non-blacks MDRD (S/P/Bld) [Vol rate/Area] 125 mL/min/{1.73_m2} Normal [facility], [facility].; [facility], [facility] Glucose [Mass/Vol] 89 mg/dL Normal 65 - 99 mg/dL [facility] Potassium [Moles/Vol] 4.1 mmol/L Normal 3.5 - 5.3 mmol/L [facility].; [facility] Protein [Mass/Vol] 6.8 g/dL Normal 6.1 - 8.1 g/dL [facility].; [facility], [facility] Sodium [Moles/Vol] 138 mmol/L Normal 135 - 146 mmol/L [facility].; [facility] TSH Qn 1.71 m[IU]/L Normal [facility]; [facility], [facility] Urea nitrogen [Mass/Vol] 12 mg/dL Normal 7 - 25 mg/d L [facility].; [facility] Laboratory - Hematology and Cell countson 06-12-2024 Basophils (Bld) [#/Vol] 0.038 10*3/uL Normal 0 - 200 {cells/uL} [facility].; [facility], [facility] Basophils/100 WBC (Bld) 0.4 % Normal [facility].; [facility] Eosinophils (Bld) [#/Vol] 0.094 10*3/uL Normal 15 - 500 {cells/uL} [facility].; [facility] Eosinophils/100 WBC (Bld) 1.0 % Normal [facility]; [place] [employer] [facility] Erythrocyte distribution width (RBC) [Ratio] 12.0 % Normal 11.0 - 15.0 % [facility].; [place] [employer] [facility] Hematocrit (Bld) [Volume fraction] 41.9 % Normal 35.0 - 45.0 % [place] [employer] [facility].; [place] [employer] [facility] Hemoglobin (Bld) [Mass/Vol] 14.1 g/dL Normal 11.7 - 15.5 g/dL [facility].; [facility], [facility] Lymphocytes (Bld) [#/Vol] 1.645 10*3/uL Normal 850 - 3900 {cells/uL} [place] [employer] [facility].; [place] [employer] [facility] Lymphocytes/100 WBC (Bld) 17.5 % Normal [facility], [facility] [employer] MCH (RBC) [Entitic mass] 30.8 pg Normal 27.0 - 33.0 pg [place] [employer] MCHC (RBC) [Mass/Vol] 33.7 g/dL Normal 32.0 - 36.0 g/dL [facility] [place] [employer] MCV (RBC) [Entitic vol] 91.5 fL Normal 80.0 - 100.0 fL [place] [employer] Monocytes (Bld) [#/Vol] 0.752 10*3/uL Normal 200 - 950 {cells/uL} [place] [employer] Monocytes/100 WBC (Bld) 8.0 % Normal [facility].; [employer] Neutrophils (Bld) [#/Vol] 6.871 10*3/uL Normal 1500 - 7800 {cells/uL} [place] [employer] Neutrophils/100 WBC (Bld) 73.1 % Normal [place] [employer] [place] Platelet mean volume (Bld) [Entitic vol] 9.4 fL Normal 7.5 - 12.5 fL [facility] [employer] Platelets (Bld) [#/Vol] 401 10*3/uL Abnormal 140 - 400 [employer] RBC (Bld) [#/Vol] 4.58 10*6/uL Normal 3.80 - 5.1 0 {Million/uL} [employer] WBC (Bld) [#/Vol] 9.4 10*3/uL Normal 3.8 - 10.8 [employer] No Panel Informationon 06-12 BUN/CREATININE RATIO SEE NOTE: Normal - 22 [facility] [employer] GLOBULIN 2.2 Normal 1.9 - 3.7 [employer] [place] [facility] 09-03-2024 Indication Dyspareunia Impression [...] Read By: Maia Ludwig M.D. MATERNAL MEDICINE [facility] 03-20-2024 Radiology Study observation (narrative) [facility] BACTERIAL VAGINOSIS NAATon 0 03-11-2024 Lactobacillus crispatus+gasseri+hahn ii + Gardnerella vaginalis + Atopobium vaginae rRNA ANIRUDH+probe Ql (Vag fld) Negative Normal Negative for bacterial vaginosis [facility] Comment on above: Order Comment: Speci men Type: SWAB Ordering Facility: [facility] Address: [address] [place] [address] Performed By: #### ANT GOFF #### [facility] CLIA [id number] [address] [place] [address] [place] [address] [place] C. trachomatis+N. gonorrhoea e DNA ANIRUDH+probe Ql (Unsp spec)on 03-11-2024 C. trachomatis rRNA ANIRUDH+probe Ql (Unsp spec) Negative Normal Negative for Chlamydia trachomatis by amplificaton [facility] Comment on above: Order Comment: Speci men Type: SWAB Ordering Facility: [facility] Address: [address] [place] [address] Performed By: #### 3 6902-5 #### [facility] CLIA [id number] [address] [place] [address] [place] N. gonorrhoeae rRNA ANIRUDH+probe Ql (Unsp spec) Negative Normal Negative for Neisseria gonorrhoeae by amplification [facility] Comment on above: Order Comment: Speci men Type: SWAB Ordering Facility: [facility] Address: [address] [place] [address] Performed By: #### 3 6902-5 #### [facility] CLIA [id number] [address] [place] [address] [place] FLORIDALMA/TRICHOMONAS NAATon 0 03-11-2024 C. glabrata RNA ANIRUDH+probe Ql (Vag fld) Negative Normal Negative for [place] glabrata [facility] Comment on above: Order Comment: Speci men Type: SWAB Ordering Facility: [facility] Address: [address] [place] [address] Performed By: #### B VAMP, CVTV #### [facility] CLIA [id number] [address] [place] [address] [place] sp DNA ANIRUDH+probe Ql (Vag fld) Negative Normal Negative for Flor[place]ma species [facility] Comment on above: Order Comment: Speci men Type: SWAB Ordering Facility: [facility] Address: [address] [place] [address] Performed By: #### B VAMP, CVTV #### [facility] CLIA [id number] [address] [place] [address] [place] T. vaginalis DNA ANIRUDH+probe Ql (Unsp spec) Negative Normal Negative for Trichomonas vaginalis by amplification [facility] Comment on above: Order Comment: Speci men Type: SWAB Ordering Facility: [facility] Address: [address] [place] [address] Performed By: #### B ANT ROBLES #### [facility] CLIA [id number] [address] [place] [address] [id number] [address] [place] [facility] CNOVon 03-11-2024 CNOV Office Visit (OBGYWM) -------- CHERY MCKEON ([id number]) 1 F Date Time Provider Department 03/11/24 7:45 AM ELIJAH LYMAN During your visit today, we recorded the following information about you: Blood pressure Weight Last Period 122/80 71.2 kg 02/28/24 Elijah Lyman, MINOR.QUALITY CONTROL CHECKER 03/11/2024 8:17 AM Signed Audiology Technician offered: Patient declines. Chery Mckeon is a [...] OB History No obstetric history on file. Residential Service Technician History LMP: Age at Menarche: Age at First : Age at Menopause: Residential Service Technician History Comments: Sexual Activity: No sexual activity [...] incontinence. + dysuria after intercourse Expanded ROS: CMM OPERATOR: + dyspareunia Allergies and current medication updated:Yes EXAM: BP 122/80 Wt 157 lb (71.2kg) LMP 02/28/2024 GENERAL: pleasant, female in no apparent distress HEENT: Normocephalic, atraumatic, mucus membranes moist, and no lesions CHEST: Normal inspiratory effort PELVIC: + erythema to bilateral clitoris, normal Bartholin's glands, urethra, [place]'s glands, no vulvar lesions, no cervical lesions, [...] malignant neoplasm of cervix [Z12.4] Order(s):PAP TEST [[id number]] Order #: [id number]. #:[id number] GONORRHEA/CHLAMYDI A NAAT [SQGCCT] Order #: [id number]. #:[id number] FLORIDALMA/TRICHOMONA S NAAT [SQCVTV] Order #: [id number]. #:[id number] BACTERIAL VAGINOSIS NAAT [SQBVAMP] Order #: [id number]. #:[id number] PELVIC US WHI [[id number]] Order #: [id number]: 1 FUTURE Prescriptions as of 03/11/2024 - levothyroxine 100 mcg cap - norgestimate 0.25 mg-ethinyl estradiol 35 mcg (STACI) 0.25-35 mg-mcg per tablet Problem List As Of Date: 03/11/2024 (None) Encounter Status:Closed by ELIJAH LYMAN on 03/11/24 Normal [facility] PAP TESTon 03-11-2024 ADEQUACY Normal [facility] Comment on above: Order Comment: Speci men Type: FLUID SPECIMEN Ordering Facility: [facility] Address: [address] [place] [address] Result Comment: Sati sfactory for interpretation. No endocervical component Performed By: #### L [id number] #### [facility] CLIA [id number] [address] [place] [address] OF [facility] CLIA [id number] [address] [place] [address] OF [facility] CASE REPORT Normal [facility] Comment on above: Order Comment: Speci men Type: FLUID SPECIMEN Ordering Facility: [facility] Address: [address] [place] [address] Result Comment: Gyne cologic Cytology Report Case: [id number] Authorizing Provider: Elijah Lyman APRN.QUALITY CONTROL CHECKER Collected: 03/11/2024 08:10 AM Ordering Location: OB/Gynecology Received: 03/11/2024 12:09 PM First Screen: Gladkaya, Shireen, CT, ASCP Specimen: Pap Test, ThinPrep, Cervix Performed By: #### L [id number] #### [facility] CLIA [id number] [address] [place] [address] [place] [facility] CLIA [id number] [address] [place] [address] [place] CLINICAL HISTORY, CYTOLOGY, CMM OPERATOR Routine Exam Normal [facility] Comment on above: Order Comment: Speci men Type: FLUID SPECIMEN Ordering Facility: [facility] Address: [address] [place] [address] Performed By: #### L [id number] #### [facility] CLIA [id number] [address] [place] [address] [place] [facility] CLIA [id number] [address] [place] [address] [place] FINAL PERFORMING LAB Normal [facility] Comment on above: Order Comment: Speci men Type: FLUID SPECIMEN Ordering Facility: [facility] Address: [address] [place] [address] Result Comment: Tech nical component, investment fund manager screening performed at [facility], [address] [place] [id number] CLIA# [id number] Diagnostic interpretation performed at [facility], [address] [place] [id number] CLIA# [id number] Bell Spinner: Fannie Dickerson M.D. Performed By: #### L [id number] #### [facility] CLIA [id number] [address] [place], [place] [address] [place] [facility] CLIA [id number] [address] [place] [address] [place] HPV REFLEX HPV if Atypical Normal [facility] Comment on above: Order Comment: Speci men Type: FLUID SPECIMEN Ordering Facility: [facility] Address: [address] [place] [address] Performed By: #### L [id number] #### [facility] CLIA [id number] [address] [place] [address] [place] [facility] CLIA [id number] [address] [place] [address] [place] INTERPRETATION, CYTOLOGY, CMM OPERATOR Normal [facility] Comment on above: Order Comment: Speci men Type: FLUID SPECIMEN Ordering Facility: [facility] Address: [address] [place] [address] Result Comment: Nega tive for intraepithelial lesion or malignancy. Performed By: #### L [id number] #### [facility] CLIA [id number] [address] [place] [address] [place] [facility] CLIA [id number] [address] [place] [address] [place] LMP 02/28/2024 Normal [facility] Comment on above: Order Comment: Speci men Type: FLUID SPECIMEN Ordering Facility: [facility] Address: [address] [place] [address] Performed By: #### L [id number] #### [facility] CLIA [id number] [address] [place] [address] [place] [facility] CLIA [id number] [address] [place] [address] [place] PAP DISCLAIMER COMMENT The Pap Smear is a screening test for cervical cancer. False negative results occur with all screening tests, emphasizing the need for rescreening at recommended intervals, and clinical correlation. Normal [facility] Comment on above: Order Comment: Speci men Type: FLUID SPECIMEN Ordering Facility: [facility] Address: [address] [place] [address] Performed By: #### L [id number] #### [facility] CLIA [id number] [address] [place] [address] [place] [facility] CLIA [id number] [address] [place] [address] [place] PAP STRIPPER SOFT PLASTIC COMMENT This specimen has been analyzed by the [facility] System, an automated imaging and review system, which assists the laboratory in evaluating cells on ThinPrep Pap tests. Following automated imaging, selected umanzor from every slide are reviewed by a investment fund manager. Normal [facility] Comment on above: Order Comment: Speci men Type: FLUID SPECIMEN Ordering Facility: [facility] Address: [address] [place] [address] Performed By: #### L [id number] #### [facility] CLIA [id number] [address] [place] [address] [place] [facility] CLIA [id number] [address] [place], [place] [address] [place] TSHon 01-04-2024 TSH Qn 1.45 m[IU]/L Normal [facility] Comment on above: Result Comment: Refe rence Range > or = 20 Years 0.40-4.50 Ranges First trimester 0.26-2.66 Second trimester 0.55-2.73 Third trimester 0.43-2.91 Performed By: #### 8 [id number] #### [facility] [address], [address] [place] [id number] Health Safety Manager: Jimbo Sal MD Laboratory - Chemistry and C hemistry - challengeon 01-03-2024 TSH Qn 1.45 m[IU]/L Normal [facility] [employer], [facility]. Laboratory - Chemistry and C hemistry - challengeon 02-26-2023 TSH Qn 0.98 m[IU]/L Normal [employer], [facility]. Laboratory - Chemistry and C hemistry - challengeon 11-28-2022 Free T4 [Mass/Vol] 1.3 ng/dL Normal 0.8 - 1.8 ng/dL H [facility] [employer], [employer].; [employer], [place]. Work Phone: Laboratory - Hematology and Cell countson 11-28-2022 Basophils (Bld) [#/Vol] 0.048 10*3/uL Normal 0 - 200 {cells/uL} [employer].; [employer], [place]. Basophils/100 WBC (Bld) 0.7 % Normal H [facility].; [facility], [facility]. Eosinophils (Bld) [#/Vol] 0.258 10*3/uL Normal 15 - 500 {cells/uL} [facility].; [facility], [facility]. Eosinophils/100 WBC (Bld) 3.8 % Normal [facility].; [facility], [facility]. Erythrocyte distribution width (RBC) [Ratio] 12.3 % Normal 11.0 - 15.0 % [facility].; [place] [employer], [facility]. Hematocrit (Bld) [Volume fraction] 42.7 % Normal 35.0 - 45.0 % [facility].; [facility], [facility]. Hemoglobin (Bld) [Mass/Vol] 14.3 g/dL Normal 11.7 - 15.5 g/dL [facility].; [facility], [facility]. Lymphocytes (Bld) [#/Vol] 1.632 10*3/uL Normal 850 - 3900 {cells/uL} [facility].; [place] [employer] [facility]. Lymphocytes/100 WBC (Bld) 24.0 % Normal [facility].; [facility], [facility]. MCH (RBC) [Entitic mass] 30.6 pg Normal 27.0 - 33.0 pg [facility].; [place] [employer], [facility]. MCHC (RBC) [Mass/Vol] 33.5 g/dL Normal 32.0 - 36.0 g/dL [facility].; [place] [employer] [facility]. MCV (RBC) [Entitic vol] 91.2 fL Normal 80.0 - 100.0 fL [facility].; [place] [employer] [facility]. Monocytes (Bld) [#/Vol] 0.632 10*3/uL Normal 200 - 950 {cells/uL} [facility].; [place] [employer], [facility]. Monocytes/100 WBC (Bld) 9.3 % Normal [facility].; [facility] [employer], [facility]. Neutrophils (Bld) [#/Vol] 4.23 10*3/uL Normal 1500 - 7800 {cells/uL} [facility].; [facility]. Neutrophils/100 WBC (Bld) 62.2 % Normal [facility]; [facility] Platelet mean volume (Bld) [Entitic vol] 9.5 fL Normal 7.5 - 12.5 fL [facility].; [facility], [facility] Platelets (Bld) [#/Vol] 304 10*3/uL Normal 140 - 400 [facility]; [facility], [facility] RBC (Bld) [#/Vol] 4.68 10*6/uL Normal 3.80 - 5.1 0 {Million/uL} [facility]; [facility] WBC (Bld) [#/Vol] 6.8 10*3/uL Normal 3.8 - 10.8 [facility]; [facility] No Panel Informationon 11-28 [id number] See Below Normal [facility]; [facility] Work Phone: CLIENT CONTACT: LLOYD OCHOA Normal [facility]; [facility] Work Phone: TEST CODE: [id number] Normal [facility]; [facility] Work Phone: TEST NAME: THYROID PEROXIDASE Normal [facility]; [facility] Work Phone: THYROID PEROXIDASE ANTIBODIES 30 {IU/mL} Abnormal [facility]; [facility] P[facility] Work Phone: TSH W/REFLEX TO FT4 4.81 {mIU/L} Abnormal [facility]; [facility] Laboratory - Chemistry and C hemistry - challengeon 12-08-2021 CRP [Mass/Vol] 1.8 mg/L Normal [facility]; [place] [employer]. No Panel Informationon 12-08 [id number] SEE NOTE Normal [facility]; [facility] [id number] SEE NOTE Normal [facility]; [facility] CHLAMYDIA TRACHOMATIS RNA, TMA, UROGENITAL Not detected Normal [facility]; [facility] CLINICAL INFORMATION: SEE NOTE Normal [facility]; [facility], [facility] REIMBURSEMENT COORDINATOR: SEE NOTE Normal [facility]; [facility] HEPATITIS B SURFACE ANTIGEN Non-Reactive Normal [facility]; [facility] HEPATITIS C ANTIBODY Non-Reactive Normal [facility]; [facility] HIV AG/AB, 4TH GEN Non-Reactive Normal [facility]; [facility] INDEX 0.01 Normal [facility]; [facility] INTERPRETATION/RESULT: SEE NOTE Normal [facility]; [facility]. LMP: SEE NOTE Normal [facility]; [facility]. NEISSERIA GONORRHOEAE RNA, TMA, UROGENITAL Not detected Normal [facility]; [facility] PREV. BX: SEE NOTE Normal [facility]; [facility] PREV. PAP: SEE NOTE Normal [facility]; [facility]. REVIEW REIMBURSEMENT COORDINATOR: SEE NOTE Normal [facility]; [facility] RHEUMATOID FACTOR <14 Normal [facility]; [facility] RPR (DX) W/REFL TITER AND CONFIRMATORY TESTING Non-Reactive Normal [facility]; [place] [employer] [facility]. SED RATE BY MODIFIED WESTERGREN 2 mm/h Normal [facility]; [facility]. SOURCE: SEE NOTE Normal [facility]; [facility] STATEMENT OF ADEQUACY: SEE NOTE Normal [facility]; [facility] Laboratory - Microbiology an d Antimicrobial susceptibilityon 02-17-2021 S. pyogenes Ag EIA Ql (Throat) Negative Normal [facility]; [facility] Laboratory - Chemistry and C hemistry - challengeon 06-08-2019 Bilirubin Ql (U) Negative Normal [facility].; [employer]. Ketones Ql (U) Negative Normal [employer]. pH (U) 5.5 [pH] Normal [employer]. Specific gravity (U) [Rel density] 1.025 Normal [employer].; [employer]. Urobilinogen Qn (U) 0.2 mg/dL Normal [facility] [employer].; [employer]. Laboratory - Hematology and Cell countson 06-08-2019 Hemoglobin Ql (U) Negative Normal [employer]; [employer]. Laboratory - Microbiology an d Antimicrobial susceptibilityon 06-08-2019 Bacteria identified Cx Nom (U) SEE NOTE Normal [employer].; [employer]. Laboratory - Specimen inform ationon 06-08-2019 Appearance (U) clear Normal [employer]. Color (U) yellow Normal [employer]; [employer]. Specimen source Nom (Unsp spec) URINE-NOT GIVEN Normal [employer]; [employer]. Laboratory - Urinalysison Glucose Test strip (U) [Mass/Vol] Negative Normal [employer].; [employer]. Leukocyte esterase Test strip Ql (U) trace Normal [employer].; [employer]. Nitrite Ql (U) Negative Normal [employer]. Protein Ql (U) trace Normal [employer].; [employer]. Final Surgical Pathology Rep tamia 12-24-2018 Final Surgical Pathology Report . Pathology Reports Accession: Collected Date/Time: Received Date/Time: Pathologist: [id number] 12/18/2018 13:58 EDT 12/23/2018 13:58 EDT MD ANA M VELASQUEZ Final Surgical Pathology Report DIAGNOSIS: GALLBLADDER, CHOLECYSTECTOMY- - RARE FOCI OF CHRONIC INFLAMMATION. - CLINICALLY REMOVED FOR BILIARY DYSKINESIA. COMMENT: [facility] [id number] CLINICAL INFORMATION: BILIARY DYSKINESIA SPECIMEN: A GALLBLADDER [...] thickness. RS -1 Dictated by Melissa GOMEZ ([facility]) MICROSCOPIC DESCRIPTION: Slides reviewed. Electronically Signed by Pathology Report verified by [facility] Electronically signed by ANA M VELASQUEZ MD Sign out Date: 12/24/2018 16:14 Performing Lab: [address] ([place]) Comment on above: Performed By: #### S PFR #### [place] [address] OPERATIVE PROCEDURESon 12-23 OPERATIVE PROCEDURES [facility] OPERATIVE REPORT NAME ACCOUNT SEX AGE ADMIT DISCHARGE PT MED. RECORD# NUMBER DATE DATE TYPE AMANDEEP, [id number] F 18 12/18/18 12/18/18 2 CHERY Belle [id number] ROOM: [facility] DATE OF : 2000 DICTATING PHYSICIAN: Natalia Liang DATE OF SURGERY: December 18, 2018 SURGEON: Natalia Liang MD HORSE RIDER: Maida Alaniz CSA ANESTHESIOLOGIST: ANESTHETIC: General endotracheal [...] as tolerated. Medications: The patient was given Gordon as needed for pain, Colace as needed [...] Natalia Liang MD 12/20/18 10:39 JOB #: [id number] Transcribed By: maycol 12/20/18 14:37 Electronically signed by: E-SIGN DR. LIANG 12/23/18 09:07 Page 2 of 2 CHERY BERNSTEIN Operative Report Normal [facility] URINEon 12-18-2018 Beta HCG ( test) Ql (U) Negative Normal NEGATIVE [facility] Comment on above: Performed By: #### 2 [id number] #### [facility],[address] [place] [id number] EXTERNAL QC DONE? YES Normal [facility] Comment on above: Performed By: #### 2 [id number] #### [facility],[address] [place] [address] INTERNAL QC PASS Normal [facility] Comment on above: Performed By: #### 2 [id number] #### [facility],[address] [place] [address] [place] HIDA SCANon 11-14-2018 NM HIDA SCAN [place] [address] Patient: CHERY BERNSTEIN Phone#: : 2000 Age: 17 Gender: F Pt. Type: Out Account: [id number] Location: Ordering: ANNA MARIE SALES Exam Date: 11/14/2018/8:16 Family Phys: ÁNGELA FERMIN Charge Code: [id number] Physician: [place] Order #: [id number] DLP Dose#: PROCEDURE: HIDA SCAN COMPARISON: None. [...] Vargas MD on 11/14/2018 at 15:05 Normal [facility] US RUQ (GB/PANCREAS)on 11-14 RUQ (GB/PANCREAS) [place] [address] Patient: CHERY BERNSTEIN Phone#: : 2000 Age: 17 Gender: F Pt. Type: Out Account: [id number] Location: Ordering: ANNA MARIE [place] Exam Date: 11/14/2018/9:21 Family Phys: ÁNGELA FERMIN Charge Code: [id number] Physician: [place] Order #: [id number] DLP Dose#: PROCEDURE: RUQ (GB) ULTRASOUND COMPARISON: [...] VARGAS MD ON 11/14/2018 AT 12:35 Normal [facility] Laboratory - Chemistry and C hemistry - challengeon 10-30-2018 Albumin [Mass/Vol] 5.1 g/dL Normal 3.6 - 5.1 g/dL [facility] [employer], [employer].; [employer] Albumin/Globulin [Mass ratio] 2.2 {ratio} Normal 1.0 - 2.5 [employer], [employer].; [employer], [employer]. ALP [Catalytic activity/Vol] 50 U/L Normal 47 - 176 U/L [employer], [place].; [employer] ALT [Catalytic activity/Vol] 20 U/L Normal 5 - 32 U/L [employer].; [employer], [place]. AST [Catalytic activity/Vol] 25 U/L Normal 12 - 32 U/L [employer], [employer].; [employer], [employer]. Bilirubin [Mass/Vol] 0.6 mg/dL Normal 0.2 - 1.1 mg/dL [employer].; [employer], [place]. Calcium [Mass/Vol] 9.8 mg/dL Normal 8.9 - 10. 4 mg/dL [employer], [employer].; [employer], [place]. Chloride [Moles/Vol] 107 mmol/L Normal 98 - 110 mmol/L [employer], [employer].; [employer], [facility]. CO2 [Moles/Vol] 22 mmol/L Normal 20 - 32 mmol/L [facility].; [facility], [facility] Creatinine [Mass/Vol] 0.61 mg/dL Normal 0.50 - 1.00 mg/dL [facility], [facility] GFR/1.73 sq M.predicted among blacks MDRD (S/P/Bld) [Vol rate/Area] SEE NOTE Normal [facility].; [facility], [facility] GFR/1.73 sq M.predicted MDRD (S/P/Bld) [Vol rate/Area] SEE NOTE Normal [facility], [facility].; [facility], [facility] Globulin (S) [Mass/Vol] 2.3 g/dL Normal 2.0 - 3.8 g/ dL [facility]; [facility], [facility] Glucose [Mass/Vol] 74 mg/dL Normal 65 - 99 mg/dL [facility].; [facility], [facility] Potassium [Moles/Vol] 4.4 mmol/L Normal 3.8 - 5.1 mmol/L [facility]; [facility], [facility] Protein [Mass/Vol] 7.4 g/dL Normal 6.3 - 8.2 g/dL [facility]; [facility], [facility] Sodium [Moles/Vol] 138 mmol/L Normal 135 - 146 mmol/L [facility].; [facility], [facility] Urea nitrogen [Mass/Vol] 13 mg/dL Normal 7 - 20 mg/d L [facility].; [facility], [facility] Urea nitrogen/Creatinine [Mass ratio] 20.8 mg/mg Normal [facility]; [facility], [facility] Laboratory - Hematology and Cell countson 06-23-2018 Basophils/100 WBC (Bld) 0.3 % Normal 0 - 1 % H [facility].; [facility], [facility] Eosinophils/100 WBC (Bld) 1.6 % Normal 0 - 5 % [facility]; [facility], [facility] Erythrocyte distribution width (RBC) [Ratio] 12.3 % Normal 11.6 - 14.6 % [facility] [employer] [facility].; [place] [employer] Hematocrit (Bld) [Volume fraction] 38.1 % Normal 37 - 47 % [place] [employer], [employer].; [place] [employer] Hemoglobin (Bld) [Mass/Vol] 13.2 g/dL Normal 12.0 - 15.0 g/dL [facility] [employer], [facility].; [place] [employer], [employer] Lymphocytes/100 WBC (Bld) 22.0 % Normal 19 - 41 % [place] [employer], [employer].; [employer] MCH (RBC) [Entitic mass] 30.3 pg Normal 27.0 - 32.0 pg [place] [employer], [employer].; [employer] MCV (RBC) [Entitic vol] 87.4 fL Normal 81 - 99 fL [facility] [employer], [employer].; [place] [employer] Monocytes (Bld) [#/Vol] Negative Normal [facility] [employer].; [place] [employer] Monocytes/100 WBC (Bld) 10.6 % Abnormal 0 - 10 % [facility] [employer].; [employer] Neutrophils/100 WBC (Bld) 65.4 % Normal 47 - 70 % [place] [employer], [employer].; [employer] Platelet mean volume (Bld) [Entitic vol] 8.8 fL Normal 6.2 - 12.0 fL [facility] [employer] ([employer]), [facility].; [employer] Platelets (Bld) [#/Vol] 256 10*3/uL Normal 150 - 450 K /mm3 [place] [employer].; [employer] RBC (Bld) [#/Vol] 4.36 10*6/uL Normal 4.1 - 4.8 {M/mm3} [employer].; [employer], [employer] WBC (Bld) [#/Vol] 6.7 10*3/uL Normal 4.4 - 11.0 K/mm3 [place] [employer], [employer].; [employer], [employer]. No Panel Informationon 06-23 Absolute Lymph 1.47 {X10_3/ul} Normal 0.83 - 4.5 1 {X10_3/ul} [facility].; [facility]. Absolute Neut 4.4 {X10_3/uL} Normal 2.0 - 7.7 {X10_3/uL} [facility].; [facility]. IM GRAN % 0.100 % Normal 0.0 - 0.9 % [facility].; [place] [employer] [facility] MCHC 34.6 {g/gl} Normal 32 - 36 {g/gl} [facility].; [place] [employer] [facility]. RDW SD 39.4 fL Normal 35.1 - 43.9 fL [facility].; [place] [employer] [facility] Laboratory - Chemistry and C hemistry - challengeon 01-28-2018 Free T3 [Mass/Vol] T3, FREE Normal [facility]; [place] [employer] [facility] Free T4 [Mass/Vol] 0.97 ng/dL Normal 0.61 - 1. 12 ng/dL [facility].; [place] [employer] [facility]. TSH Qn 2.87 m[IU]/L Normal 0.34 - 5.60 {uIU/ml} [facility].; [place] [employer] [facility]. Laboratory - Microbiology an d Antimicrobial susceptibilityon 08-01-2012 S. pyogenes Ag EIA Ql (Throat) Negative Normal [facility].; [place] [employer] [facility] Laboratory - Microbiology an d Antimicrobial susceptibilityon 07-26-2011 S. pyogenes Ag EIA Ql (Throat) Negative Normal [facility].; [place] [employer] [facility] Laboratory - Microbiology an d Antimicrobial susceptibilityon 10-09-2010 S. pyogenes Ag EIA Ql (Throat) Negative Normal [facility].; [employer]. Vital Signs Date Time Vital Sign Value Performing Clinician Facility 05-03-2025 [id number] Body height 165.1 cm Anna Marie GOMEZ Work Phone: [facility] 05-03-2025 [id number] Body mass index (BMI) [Ratio] 30.2 kg/m2 Anna Marie GOMEZ Work Phone: [facility] 05-03-2025 09:28-0400 Body weight 82.55 kg Anna Marie Sales PA Work Phone: [facility] 05-03-2025 09:28-0400 Diastolic blood pressure 81 mm[Hg] Anna Marie Sales PA Work Phone: [facility] 05-03-2025 09:28-0400 Systolic blood pressure 118 mm[Hg] Anna Marie Sales PA Work Phone: [facility] 04-22-2025 15:56-0400 Body height 165.1 cm Anna Marie Sales PA Work Phone: [facility] 04-22-2025 15:56-0400 Body mass index (BMI) [Ratio] 29.7 kg/m2 Anna Marie Sales PA Work Phone: [phone] [place] [address] 04-22-2025 15:56-0400 Body weight 81.19 kg Anna Marie Sales PA Work Phone: [phone] [place] [address] 04-22-2025 15:56-0400 Diastolic blood pressure 81 mm[Hg] Anna Marie Sales PA Work Phone: [phone] [place] [address] 04-22-2025 15:56-0400 Systolic blood pressure 119 mm[Hg] Anna Marie Sales PA Work Phone: [facility] 04-07-2025 12:52-0400 Body height 165.1 cm Anna Marie Sales PA Work Phone: [facility] 04-07-2025 12:52-0400 Body mass index (BMI) [Ratio] 29.3 kg/m2 Anna Marie Sales PA Work Phone: [facility] 04-07-2025 12:52-0400 Body weight 79.91 kg Anna Marie Sales PA Work Phone: [facility] 04-07-2025 12:52-0400 Diastolic blood pressure 80 mm[Hg] Anna Marie Sales PA Work Phone: [facility] 04-07-2025 12:52-0400 Systolic blood pressure 117 mm[Hg] Anna Marie Sales PA Work Phone: [facility] 03-31-2025 09:03-0400 Body height 165.1 cm Anna Marie Sales PA Work Phone: [phone] [place] [address] 03-31-2025 09:01-0400 Body mass index (BMI) [Ratio] 29.8 kg/m2 Anna Marie Sales PA Work Phone: [phone] [place] [address] 03-31-2025 09:01-0400 Body weight 81.33 kg Anna Marie Sales PA Work Phone: [phone] [place] [address] 03-11-2025 15:18-0400 Body height 165.1 cm Anna Marie Sales PA Work Phone: [phone] [address] 03-11-2025 15:12-0400 Body mass index (BMI) [Ratio] 29.1 kg/m2 Anna Marie Sales PA Work Phone: [phone] [place] [address] 03-11-2025 15:12-0400 Body weight 79.46 kg Anna Marie Sales PA Work Phone: 9(886)[phone] [place] [address] 03-11-2025 15:12-0400 Diastolic blood pressure 86 mm[Hg] Anna Marie Sales PA Work Phone: 2(344)321-968990 [address] 03-11-2025 15:12-0400 Systolic blood pressure 135 mm[Hg] Anna Marie Sales PA Work Phone: 6(055)995-002089 [place] [address] 03-03-2025 19:21-0400 Body temperature 97.5 [degF] Anna Marie Sales PA Work Phone: 7(826)[phone] [place] [address] 03-03-2025 19:21-0400 Diastolic blood pressure 80 mm[Hg] Anna Marie Sales PA Work Phone: 6(597)737-742289 [place] [address] 03-03-2025 19:21-0400 Heart rate 71 /min Anna Marie Sales PA Work Phone: [facility] 03-03-2025 19:21-0400 SaO2% (BldA) [Mass fraction] 100 % Anna Marie Sales PA Work Phone: 7(364)[phone] [place] [address] 03-03-2025 19:21-0400 Systolic blood pressure 133 mm[Hg] Anna Marie Sales PA Work Phone: 2(062)884-827289 [place] [address] 03-03-2025 18:25-0400 Body height 165.1 cm Anna Marie Sales PA Work Phone: [facility] 03-03-2025 18:25-0400 Body mass index (BMI) [Ratio] 28.8 kg/m2 Anna Marie Sales PA Work Phone: 5(133)344-043089 [place] [address] 03-03-2025 18:25-0400 Body weight 78.47 kg Anna Marie Sales PA Work Phone: 3(233)534-595290 [address] 02-09-2025 10:58-0400 Body height 165.1 cm Anna Marie Sales PA Work Phone: 9(281)[phone] [place] [address] 02-09-2025 10:58-0400 Body mass index (BMI) [Ratio] 28.8 kg/m2 Anna Marie Sales PA Work Phone: 0(992)450-100589 [place] [address] 02-09-2025 10:58-0400 Body weight 78.52 kg Anna Marie Sales PA Work Phone: 5(769)913-650689 [place] [address] 02-09-2025 10:58-0400 Diastolic blood pressure 83 mm[Hg] Anna Marie Sales PA Work Phone: 4(533)685-795489 [place] [address] 02-09-2025 10:58-0400 Systolic blood pressure 129 mm[Hg] Anna Marie Sales PA Work Phone: 7(994)[phone] [place] [address] 01-15-2025 14:30-0400 Body height 165.1 cm Anna Marie Sales PA Work Phone: 2(400)031-444489 [place] [address] 01-15-2025 14:30-0400 Body mass index (BMI) [Ratio] 28.5 kg/m2 Anna Marie Sales PA Work Phone: 0(602)001-825289 [place] [address] 01-15-2025 14:30-0400 Body weight 77.62 kg Anna Marie Sales PA Work Phone: 4(338)836-822889 [place] [address] 01-15-2025 14:30-0400 Diastolic blood pressure 85 mm[Hg] Anna Marie Sales PA Work Phone: [facility] 01-15-2025 14:30-0400 Systolic blood pressure 124 mm[Hg] Anna Marie Sales PA Work Phone: [facility] 01-06-2025 13:56-0400 Diastolic blood pressure 67 mm[Hg] Anna Marie Sales PA Work Phone: 4(038)223-855189 [place] [address] 01-06-2025 13:56-0400 Heart rate 74 /min Anna Marie Sales PA Work Phone: 3(373)848-164289 [place] [address] 01-06-2025 13:56-0400 Respiratory rate 16 /min Anna Marie Sales PA Work Phone: 9(485)862-353089 [place] [address] 01-06-2025 13:56-0400 Systolic blood pressure 122 mm[Hg] Anna Marie Sales PA Work Phone: 9(795)727-509989 [place] [address] 01-06-2025 12:36-0400 Body height 165.1 cm Anna Marie Sales PA Work Phone: 5(694)430-357189 [place] [address] 01-06-2025 12:36-0400 Body mass index (BMI) [Ratio] 27.9 kg/m2 Anna Marie Sales PA Work Phone: 7(766)[phone] [place] [address] 01-06-2025 12:36-0400 Body temperature 97.1 [degF] Anna Marie Sales PA Work Phone: 2(465)056-379889 [place] [address] 01-06-2025 12:36-0400 Body weight 76.2 kg Anna Marie Sales PA Work Phone: [facility] 01-06-2025 12:36-0400 SaO2% (BldA) [Mass fraction] 99 % Anna Marie Sales PA Work Phone: [facility] 12-23-2024 13:20-0400 Body temperature 96.6 [degF] Anna Marie Sales PA Work Phone: 3(696)000-327389 [place] [address] 12-23-2024 13:20-0400 Diastolic blood pressure 65 mm[Hg] Anna Marie Sales PA Work Phone: [facility] 12-23-2024 13:20-0400 Heart rate 73 /min Anna Marie Sales PA Work Phone: 0(490)187-079289 [place] [address] 12-23-2024 13:20-0400 Respiratory rate 16 /min Anna Marie Sales PA Work Phone: 0(807)[phone] [place] [address] 12-23-2024 13:20-0400 Systolic blood pressure 125 mm[Hg] Anna Marie Sales PA Work Phone: 4(075)743-111989 [place] [address] 12-23-2024 12:09-0400 Body height 165.1 cm Anna Marie Sales PA Work Phone: 5(438)776-452090 [address] 12-23-2024 12:09-0400 Body mass index (BMI) [Ratio] 27.4 kg/m2 Anna Marie Sales PA Work Phone: 3(439)173-606931 [place] [address] 12-23-2024 12:09-0400 Body weight 74.84 kg Anna Marie Sales PA Work Phone: 7(021)423-978989 [place] [address] 12-23-2024 12:09-0400 SaO2% (BldA) [Mass fraction] 98 % Anna Marie Sales PA Work Phone: 8(356)390-001689 [place] [address] 12-21-2024 15:20-0400 Body height 165.1 cm Anna Marie Sales PA Work Phone: 4(666)050-587831 [place] [address] 12-21-2024 15:20-0400 Body mass index (BMI) [Ratio] 27.4 kg/m2 Anna Marie Sales PA Work Phone: 8(328)748-754089 [place] [address] 12-21-2024 15:20-0400 Body weight 74.84 kg Anna Marie Sales PA Work Phone: 5(119)383-307490 [address] 12-21-2024 15:20-0400 Diastolic blood pressure 86 mm[Hg] Anna Marie Sales PA Work Phone: 5(557)157-782489 [place] [address] 12-21-2024 15:20-0400 Systolic blood pressure 126 mm[Hg] Anna Marie Sales PA Work Phone: [facility] 12-16-2024 10:04-0400 Body height 167.64 cm Lloyd Ramirez Lacy REINOSO [facility], [facility].; [facility]. 12-16-2024 10:04-0400 Body mass index (BMI) [Ratio] 27.12 kg/m2 Lloyd Ashley House [facility], [facility].; [facility]. 12-16-2024 10:04-0400 Body surface area Derived from formula 1.86 m2 Lloyd Ashley House [facility].; [facility]. 12-16-2024 10:04-0400 Body temperature 99.2 [degF] Lloyd Ramirez Lacy [facility].; [place] [employer] [facility]. Comment on above: Method: Tympanic 12-16-2024 10:04-0400 Body weight 76.2 kg Lloyd Ashley House MINERAL ECONOMIST [facility].; [place] [employer] [facility]. 12-16-2024 10:04-0400 Diastolic blood pressure 88 mm[Hg] Lloyd Ashley House [facility].; [place] [employer] [facility]. Comment on above: Patient Position: Sitting; Cuff Location : Right Arm; Cuff Size: Standard 12-16-2024 10:04-0400 Heart rate 92 /min Lloyd Ashley House LPN [facility], [facility].; [place] [employer] [facility]. Comment on above: Pattern: Regular 12-16-2024 10:04-0400 Systolic blood pressure 130 mm[Hg] Lloyd Ashley House MINERAL ECONOMIST [facility], [facility].; [place] [employer] [facility]. Comment on above: Patient Position: Sitting; Cuff Location : Right Arm; Cuff Size: Standard 11-19-2024 08:43-0400 Body mass index (BMI) [Ratio] 28.3 kg/m2 Anna Marie GOMEZ Work Phone: [facility] 11-19-2024 08:43-0400 Body weight 77.28 kg Anna Marie GOMEZ Work Phone: [facility] 11-19-2024 08:43-0400 Diastolic blood pressure 86 mm[Hg] Anna Marie Sales PA Work Phone: [facility] 11-19-2024 08:43-0400 Systolic blood pressure 130 mm[Hg] Anna Marie Sales PA Work Phone: [facility] 11-03-2024 10:46-0400 Body mass index (BMI) [Ratio] 28.3 kg/m2 Anna Marie Sales PA Work Phone: [facility] 11-03-2024 10:46-0400 Body weight 77.28 kg Anna Marie Sales PA Work Phone: [facility] 11-03-2024 10:46-0400 Diastolic blood pressure 76 mm[Hg] Anna Marie Sales PA Work Phone: [facility] 11-03-2024 10:46-0400 Systolic blood pressure 118 mm[Hg] Anna Marie Sales PA Work Phone: [facility] 06-12-2024 10:04-0500 Body height 167.64 cm Madina Jules LPN [facility], [facility].; [facility] 06-12-2024 10:04-0500 Body mass index (BMI) [Ratio] 26.95 kg/m2 Madinakarie Jules MINERAL ECONOMIST [facility], [facility].; [facility] 06-12-2024 10:04-0500 Body surface area Derived from formula 1.85 m2 Madina Jules LPN [facility] 06-12-2024 10:04-0500 Body weight 75.75 kg Madina Jules LPN [facility], [facility].; [facility], [facility]. 06-12-2024 10:04-0500 Diastolic blood pressure 85 mm[Hg] Madina Jules LPN [facility], [facility].; [facility], [facility]. Comment on above: Patient Position: Sitting; Cuff Location : Left Arm; Cuff Size: Standard 06-12-2024 10:04-0500 Heart rate 73 /min Madina Jules LPN [facility] Comment on above: Pattern: Regular 06-12-2024 10:04-0500 Systolic blood pressure 125 mm[Hg] Madina Jules LPN [facility].; [facility]. Comment on above: Patient Position: Sitting; Cuff Location : Left Arm; Cuff Size: Standard 03-11-2024 07:47-0400 Body weight 71.22 kg Elijah Lyman CHIEF CONTROLLER [employer].QUALITY CONTROL CHECKER Work Phone: [facility] 03-11-2024 07:47-0400 Diastolic blood pressure 80 mm[Hg] Elijah Lyman CHIEF CONTROLLER [employer]OWER.QUALITY CONTROL CHECKER Work Phone: [facility] 03-11-2024 07:47-0400 Systolic blood pressure 122 mm[Hg] Elijah Lyman CHIEF CONTROLLER [employer]OWER.QUALITY CONTROL CHECKER Work Phone: [facility] 11-28-2022 09:13-0400 Body height 167.64 cm Lloyd House LPN [facility], [facility].; [facility], [facility]. 11-28-2022 09:13-0400 Body mass index (BMI) [Ratio] 22.43 kg/m2 Lloyd House LPN [facility], [facility].; [facility], [facility]. 11-28-2022 09:13-0400 Body surface area Derived from formula 1.71 m2 Lloyd House LPN [facility], [facility].; [facility], [facility]. 11-28-2022 09:13-0400 Body weight 63.05 kg Lloyd House LPN [facility], [facility].; [place] [employer] [facility], [facility]. 11-28-2022 09:13-0400 Diastolic blood pressure 84 mm[Hg] Lloyd House LPN [facility], [facility].; [employer] [facility], [place]. Comment on above: Patient Position: Sitting; Cuff Location : Left Arm; Cuff Size: Standard 11-28-2022 09:13-0400 Heart rate 78 /min Lloyd House LPN [facility], [facility].; [employer]. Comment on above: Pattern: Regular 11-28-2022 09:13-0400 Systolic blood pressure 122 mm[Hg] Lloyd House LPN [facility].; [place] [employer]. Comment on above: Patient Position: Sitting; Cuff Location : Left Arm; Cuff Size: Standard 07-31-2022 11:01-0500 Body height 167.64 cm Maya Maxwell MA [facility].; [place] [employer]. 07-31-2022 11:01-0500 Body mass index (BMI) [Ratio] 21.63 kg/m2 Maya Maxwell MA [facility].; [place] [employer]. 07-31-2022 11:01-0500 Body surface area Derived from formula 1.69 m2 Maya Maxwell MA [facility].; [place] [employer]. 07-31-2022 11:01-0500 Body temperature 97.9 [degF] Maya [facility].; [employer]. Comment on above: Method: Tympanic 07-31-2022 11:01-0500 Body weight 60.78 kg Maya Maxwell MA [facility].; [employer]. 07-31-2022 11:01-0500 Diastolic blood pressure 87 mm[Hg] Maya Maxwell MA [facility].; [employer]. Comment on above: Patient Position: Sitting; Cuff Location : Left Arm; Cuff Size: Standard 07-31-2022 11:01-0500 Heart rate 125 /min Maya Maxwell MA [facility].; [employer]. Comment on above: Pattern: Regular 07-31-2022 11:01-0500 Inhaled oxygen concentration 20 % Maya Maxwell MA [facility].; [employer]. Comment on above: Room air 07-31-2022 11:01-0500 Inhaled oxygen concentration 21 % Maya Maxwell MA [facility].; [employer]. Comment on above: Room air 07-31-2022 11:01-0500 SaO2% (BldA) [Mass fraction] 98 % Maya Maxwell MA [facility].; [employer]. 07-31-2022 11:01-0500 Systolic blood pressure 126 mm[Hg] Maya Maxwell MA [facility].; [place] [employer] [facility]. Comment on above: Patient Position: Sitting; Cuff Location : Left Arm; Cuff Size: Standard 01-29-2022 11:15-0400 Body height 167.64 cm Sandra Longoria MA [facility] [place] [employer] [facility] [employer] 01-29-2022 11:15-0400 Body mass index (BMI) [Ratio] 20.98 kg/m2 Sandra Longoria MA [facility].; [facility]. 01-29-2022 11:150400 Body surface area Derived from formula 1.67 m2 Sandra Longoria MA [facility].; [place] [employer] [facility], [facility]. 01-29-2022 11:150400 Body weight 58.97 kg Sandra Longoria MA [facility].; [place] [employer] [facility], [place]. 01-29-2022 11:15-0400 Diastolic blood pressure 84 mm[Hg] Sandra Longoria MA [facility].; [employer]. Comment on above: Patient Position: Sitting; Cuff Location : Left Arm; Cuff Size: Standard 01-29-2022 11:15-0400 Heart rate 84 /min Sandra Longoria MA [facility], [facility].; [employer]. Comment on above: Pattern: Regular 01-29-2022 11:15-0400 Systolic blood pressure 119 mm[Hg] Sandra Longoria MA [facility].; [place] [employer]. Comment on above: Patient Position: Sitting; Cuff Location : Left Arm; Cuff Size: Standard 12-08-2021 14:08-0400 Body height 167.64 cm Lloyd House LPN [facility].; [place] [employer]. 12-08-2021 14:08-0400 Body mass index (BMI) [Ratio] 20.98 kg/m2 Lloyd House LPN [facility] [place] [employer]. 12-08-2021 14:08-0400 Body surface area Derived from formula 1.67 m2 Lloyd M Lacy [facility].; [place] [employer] [facility]. 12-08-2021 14:08-0400 Body weight 58.97 kg Lloyd Balabach [facility], [facility].; [place] [employer] [facility]. 12-08-2021 14:08-0400 Diastolic blood pressure 80 mm[Hg] Lloyd Balabach [facility], [facility].; [employer]. Comment on above: Patient Position: Sitting; Cuff Location : Left Arm; Cuff Size: Standard 12-08-2021 14:08-0400 Heart rate 97 /min Lloyd Balabach [facility], [facility].; [place] [employer]. Comment on above: Pattern: Regular 12-08-2021 14:08-0400 Systolic blood pressure 122 mm[Hg] Lloyd Balabach [facility], [facility].; [employer]. Comment on above: Patient Position: Sitting; Cuff Location : Left Arm; Cuff Size: Standard 06-09-2021 10:37-0500 Body height 166.37 cm Lloyd Ramirez Lacy [facility], [facility].; [place] [employer]. 06-09-2021 10:37-0500 Body mass index (BMI) [Ratio] 21.3 kg/m2 Lloyd Balabach [facility], [facility].; [employer] 06-09-2021 10:37-0500 Body surface area Derived from formula 1.66 m2 Lloyd Ashley Lacy MINERAL ECONOMIST [facility], [facility].; [place] [employer]. 06-09-2021 10:37-0500 Body temperature 99.3 [degF] Lloyd Balabach [facility], [facility].; [employer]. Comment on above: Method: Tympanic 06-09-2021 10:37-0500 Body weight 58.97 kg Lloyd Ramirez Lacy [facility], [facility].; [employer] 06-09-2021 10:37-0500 Diastolic blood pressure 84 mm[Hg] Lloyd Ramirez Lacy [facility].; [employer]. Comment on above: Patient Position: Sitting; Cuff Location : Left Arm; Cuff Size: Standard 06-09-2021 10:37-0500 Heart rate 78 /min Lloyd House MINERAL ECONOMIST [facility], [facility].; [facility]. Comment on above: Pattern: Regular 06-09-2021 10:37-0500 Inhaled oxygen concentration 20 % Lloyd Ashley Lacy [facility], [facility].; [facility] Comment on above: Room air 06-09-2021 10:37-0500 Inhaled oxygen concentration 21 % Lloyd House [facility], [facility].; [place] [employer]. Comment on above: Room air 06-09-2021 10:37-0500 SaO2% (BldA) [Mass fraction] 98 % Lloyd Ramirez Lacy [facility], [facility].; [facility] [place]. 06-09-2021 10:37-0500 Systolic blood pressure 122 mm[Hg] Lloyd House [facility], [facility].; [place] [employer]. Comment on above: Patient Position: Sitting; Cuff Location : Left Arm; Cuff Size: Standard 02-17-2021 08:50-0400 Body height 166.37 cm Sandra Gauthier LPN [facility], [facility].; [facility], [facility]. 02-17-2021 08:50-0400 Body mass index (BMI) [Ratio] 20.81 kg/m2 Sandra Gauthier LPN [facility], [facility].; [facility], [facility]. 02-17-2021 08:50-0400 Body surface area Derived from formula 1.64 m2 Sandra Gauthier LPN [facility], [facility].; [facility]. 02-17-2021 08:50-0400 Body temperature 98.4 [degF] Sandra [facility]authier [facility], [facility].; [place] [employer] [facility]. Comment on above: Method: Tympanic 02-17-2021 08:50-0400 Body weight 57.61 kg Sandra Gauthier LPN [facility], [facility].; [facility]. 02-17-2021 08:50-0400 Diastolic blood pressure 78 mm[Hg] Sandra Gauthier LPN [facility], [facility].; [employer], [place]. Comment on above: Patient Position: Sitting; Cuff Location : Left Arm; Cuff Size: Standard 02-17-2021 08:50-0400 Heart rate 60 /min Sandra Gauthier LPN [facility], [facility].; [employer] Comment on above: Pattern: Regular 02-17-2021 08:50-0400 Systolic blood pressure 117 mm[Hg] Sandra Gauthier LPN [facility], [facility].; [employer], [place]. Comment on above: Patient Position: Sitting; Cuff Location : Left Arm; Cuff Size: Standard 08-05-2020 14:59-0500 Body height 166.37 cm Neilee L Viv [facility], [facility].; [employer] 08-05-2020 14:59-0500 Body mass index (BMI) [Percentile] Per age and sex 52 % Neilee L Vess MINERAL ECONOMIST [facility], [facility].; [place] [employer], [facility]. 08-05-2020 14:59-0500 Body mass index (BMI) [Ratio] 21.8 kg/m2 Neilee L Vess MINERAL ECONOMIST [facility], [facility].; [employer] 08-05-2020 14:59-0500 Body surface area Derived from formula 1.67 m2 Neilee L Vess MINERAL ECONOMIST [facility], [facility].; [employer] 08-05-2020 14:59-0500 Body temperature 98.7 [degF] Neilee L Vess MINERAL ECONOMIST [place] [employer] [facility], [facility].; [employer], [place]. Comment on above: Method: Tympanic 08-05-2020 14:59-0500 Body weight 60.33 kg Neilee L Vess MINERAL ECONOMIST [place] [employer] [facility], [facility].; [employer], [place]. 08-05-2020 14:59-0500 Diastolic blood pressure 91 mm[Hg] Neilee L Vess MINERAL ECONOMIST [place] [employer] [facility], [facility] [employer], [place]. Comment on above: Patient Position: Sitting; Cuff Location : Right Arm; Cuff Size: Standard 08-05-2020 14:59-0500 Heart rate 76 /min Neilee L Vess MINERAL ECONOMIST [employer]. Comment on above: Pattern: Regular 08-05-2020 14:59-0500 Systolic blood pressure 135 mm[Hg] Jaziel Nam MINERAL ECONOMIST [employer], [place]. Comment on above: Patient Position: Sitting; Cuff Location : Right Arm; Cuff Size: Standard 08-18-2019 13:40-0500 Body height 166.37 cm Jaziel Nam [facility] [employer], [employer], [place]. 08-18-2019 13:40-0500 Body mass index (BMI) [Percentile] Per age and sex 46 % Jaziel Nam [facility] [employer], [place]. 08-18-2019 13:40-0500 Body mass index (BMI) [Ratio] 21.14 kg/m2 Anastasiiae Nereyda Nam [facility] [employer], [place]. 08-18-2019 13:40-0500 Body surface area Derived from formula 1.65 m2 Anastasiiae Nereyda Nam [facility] [employer] [employer], [place]. 08-18-2019 13:40-0500 Body temperature 99 [degF] Jaziel Nam [facility] [employer], [place]. Comment on above: Method: Tympanic 08-18-2019 13:40-0500 Body weight 58.51 kg Jaziel [facility] [employer] 06-08-2019 09:01-0500 Body height 166.37 cm iRta English LPN [employer], [place]. 06-08-2019 09:01-0500 Body temperature 98.5 [degF] Rita English [facility] [place].; [employer], [place]. Comment on above: Method: Tympanic 06-08-2019 09:01-0500 Diastolic blood pressure 85 mm[Hg] Rita English [facility] [employer]. Comment on above: Patient Position: Sitting; Cuff Location : Left Arm; Cuff Size: Standard 06-08-2019 09:01-0500 Heart rate 90 /min Rita Wekwame REINOSO [employer]. Comment on above: Pattern: Regular 06-08-2019 09:01-0500 Systolic blood pressure 119 mm[Hg] Rita Wekwame MINERAL ECONOMIST [employer] Comment on above: Patient Position: Sitting; Cuff Location : Left Arm; Cuff Size: Standard 10-30-2018 08:110400 Body temperature 98 [degF] Rita Rahmankwame MINERAL ECONOMIST [employer]. Comment on above: Method: Tympanic 10-30-2018 08:110400 Body weight 53.52 kg Rita Wekwame REINOSO [employer] 10-30-2018 08:110400 Inhaled oxygen concentration 20 % Rita English MINERAL ECONOMIST [employer]. Comment on above: Room air 10-30-2018 08:110400 Inhaled oxygen concentration 21 % Rita Wekwame MINERAL ECONOMISTMashed jobs.; [employer]. Comment on above: Room air 10-30-2018 08:110400 SaO2% (BldA) [Mass fraction] 97 % Rita English LPN [employer] 06-20-2018 10:07-0500 Body height 166.37 cm Rita English LPN [employer]. 06-20-2018 10:07-0500 Body mass index (BMI) [Percentile] Per age and sex 41 % Rita English LPN [employer] 06-20-2018 10:07-0500 Body mass index (BMI) [Ratio] 20.41 kg/m2 Rita English LPN [employer]. 06-20-2018 10:07-0500 Body surface area Derived from formula 1.63 m2 Rita Juddchery REINOSO [employer].; [employer]. 06-20-2018 10:07-0500 Body temperature 99 [degF] [facility].; [employer]. Comment on above: Method: Tympanic 06-20-2018 10:07-0500 Body weight 56.5 kg Rita Juddchery [facility] HospitalRacktivity Inc.; [employer]. 06-20-2018 10:07-0500 Heart rate 84 /min Rita Juddchery [facility].; [employer]. Comment on above: Pattern: Regular 06-20-2018 10:07-0500 Inhaled oxygen concentration 20 % Rita Juddchery [facility].; [employer]. Comment on above: Room air 06-20-2018 10:07-0500 Inhaled oxygen concentration 21 % Rita English [facility].; [employer]. Comment on above: Room air 06-20-2018 10:07-0500 SaO2% (BldA) [Mass fraction] 98 % Rita English [facility].; [employer]. 04-22-2018 09:59-0400 Body height 166.37 cm Needium-C Work Phone: [employer].; [employer]. 04-22-2018 09:59-0400 Body mass index (BMI) [Percentile] Per age and sex 45 % Kickit With PA-C Work Phone: [employer]; [employer]. 04-22-2018 09:59-0400 Body mass index (BMI) [Ratio] 20.65 kg/m2 [employer] PA-C Work Phone: [employer].; [employer]. 04-22-2018 09:59-0400 Body surface area Derived from formula 1.63 m2 Anna Marie Sales PA-C Work Phone: [employer]; [employer] 04-22-2018 09:59-0400 Body temperature 99.2 [degF] Anna Marie Sales PA-C Work Phone: [employer]; [employer]. 04-22-2018 09:59-0400 Body weight 57.15 kg Anna Marie Sales PA-C Work Phone: [employer]; [employer] 04-22-2018 09:59-0400 Inhaled oxygen concentration 20 % Anna Marie Sales PA-C Work Phone: [employer]; [employer]. Comment on above: Room air 04-22-2018 09:59-0400 Inhaled oxygen concentration 21 % Anna Marie Sales PA-C Work Phone: [employer]; [employer]. Comment on above: Room air 04-22-2018 09:59-0400 SaO2% (BldA) [Mass fraction] 97 % Ann Amarie Sales PA-C Work Phone: [employer]; [employer] 04-14-2018 14:59-0400 Body height 166.37 cm Conchita Hawthorne RN [employer]. 04-14-2018 14:59-0400 Body mass index (BMI) [Percentile] Per age and sex 45 % Conchita Hawthorne RN [employer].; [employer]. 04-14-2018 14:59-0400 Body mass index (BMI) [Ratio] 20.66 kg/m2 Conchita Hawthorne RN [employer].; [employer]. 04-14-2018 14:59-0400 Body surface area Derived from formula 1.64 m2 Conchita Hawthorne RN [employer].; [employer]. 04-14-2018 14:59-0400 Body temperature 99.3 [degF] Conchita Hawthorne RN [place] [employer]. Comment on above: Method: Tympanic 04-14-2018 14:59-0400 Body weight 57.2 kg Conchita Hawthorne RN [place] [employer]. 01-28-2018 09:25-0400 Body height 309.88 cm Neilee L Vess MINERAL ECONOMIST [employer]. 01-28-2018 09:25-0400 Body mass index (BMI) [Percentile] Per age and sex 0 % Neilee L Vess MINERAL ECONOMIST [employer], [place]. 01-28-2018 09:25-0400 Body mass index (BMI) [Ratio] 3.09 kg/m2 Neilee L Vess MINERAL ECONOMIST [employer].; [employer]. 01-28-2018 09:25-0400 Body surface area Derived from formula 1.94 m2 Neilee L Vess MINERAL ECONOMIST [employer], [place]. 01-28-2018 09:25-0400 Body weight 29.71 kg Neilee L Vess MINERAL ECONOMIST [employer]. 01-28-2018 09:25-0400 Diastolic blood pressure 67 mm[Hg] Neilee L Vess MINERAL ECONOMIST [employer]. Comment on above: Patient Position: Sitting; Cuff Location : Left Arm; Cuff Size: Standard 01-28-2018 09:25-0400 Heart rate 67 /min Neilee L Vess MINERAL ECONOMIST [employer]. Comment on above: Pattern: Regular 01-28-2018 09:25-0400 Systolic blood pressure 107 mm[Hg] Neilee L Vess MINERAL ECONOMIST [employer], [place].; [employer]. Comment on above: Patient Position: Sitting; Cuff Location : Left Arm; Cuff Size: Standard 11-06-2016 08:32-0400 Body temperature 98.8 [degF] Neilee L Vess MINERAL ECONOMIST [employer], [place].; [employer]. Comment on above: Method: Tympanic 11-06-2016 08:32-0400 Body weight 55.79 kg Neilee L Vess MINERAL ECONOMIST [employer].; [employer]. 11-06-2016 08:32-0400 Diastolic blood pressure 88 mm[Hg] Neilee L Vess MINERAL ECONOMIST [employer].; [employer]. Comment on above: Patient Position: Sitting; Cuff Location : Right Arm; Cuff Size: Standard 11-06-2016 08:32-0400 Heart rate 70 /min Neilee L Vess MINERAL ECONOMIST [employer].; [employer]. Comment on above: Pattern: Regular 11-06-2016 08:32-0400 Systolic blood pressure 141 mm[Hg] Neilee L Vess MINERAL ECONOMIST [employer].; [employer]. Comment on above: Patient Position: Sitting; Cuff Location : Right Arm; Cuff Size: Standard 10-18-2016 14:55-0400 Body height 166.37 cm Conchita Hawthorne RN [employer].; [employer]. 10-18-2016 14:55-0400 Body mass index (BMI) [Percentile] Per age and sex 50 % Conchita Hawthorne RN [employer].; [employer]. 10-18-2016 14:55-0400 Body mass index (BMI) [Ratio] 20.37 kg/m2 Conchita Hawthorne RN [employer].; [employer]. 10-18-2016 14:55-0400 Body surface area Derived from formula 1.63 m2 Conchita Hawthorne RN [employer].; [employer]. 10-18-2016 14:55-0400 Body temperature 98.2 [degF] Conchita Hawthorne RN [employer].; [employer]. Comment on above: Method: Tympanic 10-18-2016 14:55-0400 Body weight 56.38 kg Conchita Hawthorne RN [employer].; [employer]. 10-04-2016 14:42-0400 Body height 166.37 cm Conchita Hawthorne RN [employer].; [employer]. 10-04-2016 14:42-0400 Body mass index (BMI) [Percentile] Per age and sex 48 % Conchita Hawthorne RN [employer].; [employer]. 10-04-2016 14:42-0400 Body mass index (BMI) [Ratio] 20.16 kg/m2 Conchita Hawthorne RN [employer].; [employer]. 10-04-2016 14:42-0400 Body surface area Derived from formula 1.62 m2 Conchita Hawthorne RN [employer].; [employer]. 10-04-2016 14:42-0400 Body temperature 99.8 [degF] Conchita Hawthorne RN [employer].; [employer]. Comment on above: Method: Tympanic 10-04-2016 14:42-0400 Body weight 55.79 kg Conchita Hawthorne RN [employer].; [employer]. 05-09-2016 13:18-0400 Body height 166.37 cm Conchita Hawthorne RN [employer].; [employer]. 05-09-2016 13:18-0400 Body mass index (BMI) [Percentile] Per age and sex 43 % Conchita Hawthorne RN [employer].; [employer]. 05-09-2016 13:18-0400 Body mass index (BMI) [Ratio] 19.62 kg/m2 Conchita Hawthorne RN [employer].; [employer]. 05-09-2016 13:18-0400 Body surface area Derived from formula 1.6 m2 Conchita Hawthorne RN [employer].; [employer]. 05-09-2016 13:18-0400 Body temperature 99.3 [degF] Conchita Hawthorne RN [employer].; [employer]. Comment on above: Method: Tympanic 05-09-2016 13:18-0400 Body weight 54.3 kg Conchita Hawthorne RN [employer].; [employer]. 05-09-2016 13:18-0400 Heart rate 118 /min Conchita Hawthorne RN [employer]. Comment on above: Pattern: Regular 05-09-2016 13:18-0400 Inhaled oxygen concentration 20 % Conchita Hawthorne RN [employer].; [employer]. Comment on above: Room air 05-09-2016 13:18-0400 Inhaled oxygen concentration 21 % Conchita Hawthorne RN [employer].; [employer]. Comment on above: Room air 05-09-2016 13:18-0400 SaO2% (BldA) [Mass fraction] 97 % Conchita Hawthorne RN [employer].; [employer]. 04-04-2016 10:44-0400 Body height 166.37 cm Mandi Maldonado RN Work Phone: [employer].; [employer]. 04-04-2016 10:44-0400 Body mass index (BMI) [Percentile] Per age and sex 40 % Mandi Maldonado RN Work Phone: [employer].; [employer]. 04-04-2016 10:44-0400 Body mass index (BMI) [Ratio] 19.34 kg/m2 Mandi Maldonado RN Work Phone: [employer].; [employer]. 04-04-2016 10:44-0400 Body surface area Derived from formula 1.59 m2 Mandi Maldonado RN Work Phone: [employer].; [employer]. 04-04-2016 10:44-0400 Body temperature 99.1 [degF] Mandi Maldonado RN Work Phone: [employer].; [employer]. Comment on above: Method: Tympanic 04-04-2016 10:44-0400 Body weight 53.52 kg Mandi Maldonado RN Work Phone: [employer].; [employer]. 04-04-2016 10:44-0400 Inhaled oxygen concentration 20 % Mandi Maldonado RN Work Phone: [employer].; [employer]. Comment on above: Room air 04-04-2016 10:44-0400 Inhaled oxygen concentration 21 % Mandi Maldonado RN Work Phone: [employer]; [employer]. Comment on above: Room air 04-04-2016 10:44-0400 SaO2% (BldA) [Mass fraction] 99 % Mandi Maldonado RN Work Phone: [employer].; [employer]. 03-21-2016 10:53-0400 Body height 165.74 cm Conchita Hawthorne RN [employer].; [employer]. 03-21-2016 10:53-0400 Body mass index (BMI) [Percentile] Per age and sex 49 % Conchita Hawthorne RN [employer].; [employer]. 03-21-2016 10:53-0400 Body mass index (BMI) [Ratio] 19.96 kg/m2 Conchita Hawthorne RN [employer].; [employer]. 03-21-2016 10:53-0400 Body surface area Derived from formula 1.6 m2 Conchita Hawthorne RN [employer].; [employer]. 03-21-2016 10:53-0400 Body temperature 98 [degF] Conchita Hawthorne RN [employer].; [employer]. Comment on above: Method: Tympanic 03-21-2016 10:53-0400 Body weight 54.84 kg Conchita Hawthorne RN [employer]. 03-21-2016 10:53-0400 Diastolic blood pressure 73 mm[Hg] Conchita Hawthorne RN [employer].; [employer]. Comment on above: Patient Position: Sitting; Cuff Location : Left Arm; Cuff Size: Standard 03-21-2016 10:53-0400 Heart rate 59 /min Conchita Hawthorne RN [employer].; [employer]. Comment on above: Pattern: Regular 03-21-2016 10:53-0400 Systolic blood pressure 112 mm[Hg] Conchita Hawthorne RN [employer].; [employer]. Comment on above: Patient Position: Sitting; Cuff Location : Left Arm; Cuff Size: Standard 11-07-2015 11:47-0400 Body height 163.83 cm Anna Marie Sales PA-C Work Phone: [employer]; [employer]. 11-07-2015 11:47-0400 Body mass index (BMI) [Percentile] Per age and sex 44 % Anna Marie Sales PA-C Work Phone: [employer]; [employer]. 11-07-2015 11:47-0400 Body mass index (BMI) [Ratio] 19.43 kg/m2 Anna Marie Sales PA-C Work Phone: [employer]; [employer]. 11-07-2015 11:47-0400 Body surface area Derived from formula 1.55 m2 Anna Marie Sales PA-C Work Phone: [employer]; [employer]. 11-07-2015 11:47-0400 Body temperature 99.6 [degF] Anna Marie Sales PA-C Work Phone: [employer]; [employer]. Comment on above: Method: Tympanic 11-07-2015 11:47-0400 Body weight 52.16 kg Anna Marie Sales PA-C Work Phone: [employer]; [employer]. 11-07-2015 11:47-0400 Diastolic blood pressure 66 mm[Hg] Anna Marie Sales PA-C Work Phone: [employer]; [employer]. Comment on above: Patient Position: Sitting; Cuff Location : Right Arm; Cuff Size: Standard 11-07-2015 11:47-0400 Heart rate 69 /min Anna Marie Sales PA-C Work Phone: [employer]; [employer]. Comment on above: Pattern: Regular 11-07-2015 11:47-0400 Systolic blood pressure 128 mm[Hg] Anna Marie Sales PA-C Work Phone: [place] [employer]; [employer]. Comment on above: Patient Position: Sitting; Cuff Location : Right Arm; Cuff Size: Standard 02-09-2015 14:51-0400 Body height 164.47 cm Conchita Hawthorne RN [employer].; [employer]. 02-09-2015 14:51-0400 Body mass index (BMI) [Percentile] Per age and sex 41 % Conchita Hawthorne RN [employer].; [employer]. 02-09-2015 14:51-0400 Body mass index (BMI) [Ratio] 18.78 kg/m2 Conchita Hawthorne RN [employer].; [employer]. 02-09-2015 14:51-0400 Body surface area Derived from formula 1.54 m2 Conchita Hawthorne RN [employer].; [employer]. 02-09-2015 14:51-0400 Body temperature 98.4 [degF] Conchita Hawthorne RN [employer].; [employer]. Comment on above: Method: Tympanic 02-09-2015 14:51-0400 Body weight 50.8 kg Conchita Hawthorne RN [employer]. 02-09-2015 14:51-0400 Diastolic blood pressure 62 mm[Hg] Conchita Hawthorne RN [employer]. Comment on above: Patient Position: Sitting; Cuff Location : Left Arm; Cuff Size: Standard 02-09-2015 14:51-0400 Heart rate 62 /min Conchita Hawthorne RN [employer]. Comment on above: Pattern: Regular 02-09-2015 14:51-0400 Systolic blood pressure 104 mm[Hg] Conchita Hawthorne RN [employer]. Comment on above: Patient Position: Sitting; Cuff Location : Left Arm; Cuff Size: Standard 11-13-2013 08:09-0400 Body height 162.56 cm Rita Wekwame REINOSO [place] [employer] [facility], [facility].; [employer] 11-13-2013 08:09-0400 Body mass index (BMI) [Percentile] Per age and sex 31 % Rita Wekwame MINERAL ECONOMIST [place] [employer] [facility], Inc.; [employer] 11-13-2013 08:09-0400 Body mass index (BMI) [Ratio] 17.38 kg/m2 Rita Wekwame MINERAL ECONOMIST [place] [employer], [place]. 11-13-2013 08:09-0400 Body surface area Derived from formula 1.46 m2 Rita Wekwame [facility] [employer], [place].; [employer], [place]. 11-13-2013 08:09-0400 Body temperature 98.3 [degF] Ritaaidan Juddchery [facility] [employer].; [employer]. Comment on above: Method: Tympanic 11-13-2013 08:09-0400 Body weight 45.93 kg Rita Rahmankwame [facility], [place].; [employer] 01-30-2013 11:02-0400 Body height 158.75 cm Mandi Maldonado RN Work Phone: [employer].; [employer]. 01-30-2013 11:02-0400 Body mass index (BMI) [Percentile] Per age and sex 28 % Mandi Maldonado RN Work Phone: [employer].; [employer], [place]. 01-30-2013 11:02-0400 Body mass index (BMI) [Ratio] 16.74 kg/m2 Mandi Maldonado RN Work Phone: [employer].; [employer] 01-30-2013 11:02-0400 Body surface area Derived from formula 1.39 m2 Mandi Maldonado RN Work Phone: [place] [employer].; [employer]. 01-30-2013 11:02-0400 Body weight 42.18 kg Mandi Maldonado RN Work Phone: [place] [employer].; [employer]. 01-30-2013 11:02-0400 Diastolic blood pressure 70 mm[Hg] Mandi Maldonado RN Work Phone: [place] [employer].; [employer]. Comment on above: Patient Position: Sitting; Cuff Location : Right Arm; Cuff Size: Standard 01-30-2013 11:02-0400 Heart rate 70 /min Mandi Maldonado RN Work Phone: [place] [employer]. Comment on above: Pattern: Regular 01-30-2013 11:02-0400 Systolic blood pressure 109 mm[Hg] Mandi Maldonado RN Work Phone: [place] [employer].; [employer]. Comment on above: Patient Position: Sitting; Cuff Location : Right Arm; Cuff Size: Standard 08-01-2012 08:43-0500 Body height 152.4 cm Rita English LPN [place] [employer] [facility] HospitalEnc[facility].; [employer]. 08-01-2012 08:43-0500 Body mass index (BMI) [Percentile] Per age and sex 61 % Rita English LPN [place] [employer] [facility] Hospital[facility].; [employer]. 08-01-2012 08:43-0500 Body mass index (BMI) [Ratio] 18.6 kg/m2 Rita English MINERAL ECONOMIST [place] [employer]. 08-01-2012 08:43-0500 Body surface area Derived from formula 1.36 m2 Rita English MINERAL ECONOMIST [place] [employer]. 08-01-2012 08:43-0500 Body temperature 98 [degF] Rita English [facility] [employer] [facility] HospitalVanceInfo [facility].; [employer]. Comment on above: Method: Tympanic 08-01-2012 08:43-0500 Body weight 43.21 kg Rita English LPN [place] [employer].; [employer]. 08-01-2012 08:43-0500 Inhaled oxygen concentration 20 % Rita English ARLETH [employer] [facility] HospitalVanceInfo [facility].; [employer]. Comment on above: Room air 08-01-2012 08:43-0500 Inhaled oxygen concentration 21 % Rita English [facility]ERAL ECONOMISTPresbyterian Hospitalhowsimple [facility] HospitalVanceInfo Technologies.; [employer]. Comment on above: Room air 08-01-2012 08:43-0500 SaO2% (BldA) [Mass fraction] 99 % Rita English MINERAL ECONOMIST [employer] [facility] HospitalVance[facility].; [employer]. 05-07-2012 08:39-0400 Body height 152.4 cm Anna Marie Sales PA-C Work Phone: [employer].; [employer]. 05-07-2012 08:39-0400 Body mass index (BMI) [Percentile] Per age and sex 39 % Anna Marie Sales PA-C Work Phone: [employer].; [employer]. 05-07-2012 08:39-0400 Body mass index (BMI) [Ratio] 16.99 kg/m2 Anna Marie Sales PA-C Work Phone: [employer].; [employer]. 05-07-2012 08:39-0400 Body surface area Derived from formula 1.31 m2 Anna Marie Sales PA-C Work Phone: [employer].; [employer]. 05-07-2012 08:39-0400 Body temperature 98.8 [degF] Anna Marie Sales PA-C Work Phone: [employer].; [employer]. Comment on above: Method: Tympanic 05-07-2012 08:39-0400 Body weight 39.46 kg Anna Marie Sales PA-C Work Phone: [employer].; [employer]. 05-07-2012 08:39-0400 Inhaled oxygen concentration 20 % Anna Marie Sales PA-C Work Phone: [place] [employer] [facility] Hospital[facility]ance[facility].; [employer]. Comment on above: Room air 05-07-2012 08:39-0400 Inhaled oxygen concentration 21 % Anna Marie Sales PA-C Work Phone: [employer]os[employer] [facility] HospitalVance[facility].; [employer]. Comment on above: Room air 05-07-2012 08:39-0400 SaO2% (BldA) [Mass fraction] 99 % Anna Marie Sales PA-C Work Phone: [place] [employer] [facility] Hospital[facility].; [employer]. 04-30-2012 08:33-0400 Body height 152.4 cm Lloyd Ashley House [facility] [employer] [facility] Hospital[facility].; [employer]. 04-30-2012 08:33-0400 Body mass index (BMI) [Percentile] Per age and sex 39 % Lloyd Ashley House [facility] [employer] [facility] Hospital[facility].; [employer]. 04-30-2012 08:33-0400 Body mass index (BMI) [Ratio] 16.99 kg/m2 Lloyd Ashley Lacy [facility] [employer] [facility] Hospital[facility].; [employer]. 04-30-2012 08:33-0400 Body surface area Derived from formula 1.31 m2 Lloyd Ashley House [facility] [employer] [facility] Hospital[facility].; [employer]. 04-30-2012 08:33-0400 Body temperature 99.8 [degF] Lloyd House [facility] Hospital[facility].; [employer]. Comment on above: Method: Tympanic 04-30-2012 08:33-0400 Body weight 39.46 kg Lloyd House MINERAL ECONOMIST [place] [employer] [facility] Hospital[facility].; [employer]. 11-22-2011 13:28-0400 Body height 149.86 cm Kristin Pérez LPN Work Phone: [employer].; [employer]. 11-22-2011 13:28-0400 Body mass index (BMI) [Percentile] Per age and sex 46 % Kristin Pérez LPN Work Phone: [employer]; [employer]. 11-22-2011 13:28-0400 Body mass index (BMI) [Ratio] 17.17 kg/m2 Kristin Pérez LPN Work Phone: [employer]; [employer]. 11-22-2011 13:28-0400 Body surface area Derived from formula 1.28 m2 Kristin Pérez LPN Work Phone: [employer]; [employer]. 11-22-2011 13:28-0400 Body temperature 98.7 [degF] Kristin Pérez LPN Work Phone: [employer]; [employer]. Comment on above: Method: Tympanic 11-22-2011 13:28-0400 Body weight 38.56 kg Kristin Pérez LPN Work Phone: [employer]; [employer]. 11-22-2011 13:28-0400 Heart rate 98 /min Kristin Pérez LPN Work Phone: [employer]; [employer]. Comment on above: Pattern: Regular 11-22-2011 13:28-0400 Inhaled oxygen concentration 20 % Kristin Pérez LPN Work Phone: [employer]; [employer]. Comment on above: Room air 11-22-2011 13:28-0400 Inhaled oxygen concentration 21 % Kristin Pérez LPN Work Phone: [employer]; [employer]. Comment on above: Room air 11-22-2011 13:28-0400 SaO2% (BldA) [Mass fraction] 97 % Kristin Pérez LPN Work Phone: [employer]; [employer]. 07-26-2011 08:48-0500 Body height 146.05 cm Conchita Hawthorne RN [employer].; [employer]. 07-26-2011 08:48-0500 Body mass index (BMI) [Percentile] Per age and sex 56 % Conchita Hawthorne RN [employer].; [employer]. 07-26-2011 08:48-0500 Body mass index (BMI) [Ratio] 17.61 kg/m2 Conchita Hawthorne RN [employer].; [employer]. 07-26-2011 08:48-0500 Body surface area Derived from formula 1.24 m2 Conchita Hawthorne RN [employer].; [employer]. 07-26-2011 08:48-0500 Body temperature 97 [degF] Conchita Hawthorne RN [employer].; [employer]. Comment on above: Method: Tympanic 07-26-2011 08:48-0500 Body weight 37.56 kg Conchita Hawthorne RN [employer].; [employer]. 06-26-2011 15:45-0500 Body height 146.05 cm Neilee L Vess MINERAL ECONOMIST [employer].; [employer]. 06-26-2011 15:45-0500 Body mass index (BMI) [Percentile] Per age and sex 61 % Neilee L Vess MINERAL ECONOMIST [employer].; [employer]. 06-26-2011 15:45-0500 Body mass index (BMI) [Ratio] 17.86 kg/m2 Neilee L Vess MINERAL ECONOMIST [employer].; [employer]. 06-26-2011 15:45-0500 Body surface area Derived from formula 1.25 m2 Neilee L Vess MINERAL ECONOMIST [employer].; [employer]. 06-26-2011 15:45-0500 Body temperature 98.6 [degF] Neilee L Vess MINERAL ECONOMIST [employer].; [employer]. 06-26-2011 15:45-0500 Body weight 38.1 kg Neilee L Vess MINERAL ECONOMIST [employer].; [employer]. 05-30-2011 08:40-0500 Body height 148.59 cm Lloyd [facility].; [employer]oshow[employer] [facility] HospitalVanceInfo Technologies. 05-30-2011 08:40-0500 Body mass index (BMI) [Percentile] Per age and sex 35 % Lloyd House [facility].; [employer] [employer] [facility] HospitalVance[facility]. 05-30-2011 08:40-0500 Body mass index (BMI) [Ratio] 16.23 kg/m2 Lloyd House [facility] FloridaEncover [facility].; [employer] [facility]. 05-30-2011 08:40-0500 Body surface area Derived from formula 1.23 m2 [facility].; [employer] [facility]. 05-30-2011 08:40-0500 Body temperature 97.3 [degF] Lloyd Ramirez Lacy [facility].; [employer]. Comment on above: Method: Tympanic 05-30-2011 08:40-0500 Body weight 35.83 kg Lloyd House [facility].; [employer]. 05-17-2011 08:59-0400 Body height 146.05 cm Ángela Chery Bright[employer]Tax PA-C Work Phone: [place] [employer] [facility].; [employer]. 05-17-2011 08:59-0400 Body mass index (BMI) [Percentile] Per age and sex 37 % Ángela D [employer] PA-C Work Phone: [place] [employer] [facility].; [employer]. 05-17-2011 08:59-0400 Body mass index (BMI) [Ratio] 16.33 kg/m2 JRKICKZ Chery Bright[employer] PA-C Work Phone: [employer] 05-17-2011 08:59-0400 Body surface area Derived from formula 1.21 m2 [facility] PA-C Work Phone: [employer] [facility].; [employer]. 05-17-2011 08:59-0400 Body temperature 98.3 [degF] [facility] PA-C Work Phone: [employer]; [employer]. Comment on above: Method: Tympanic 05-17-2011 08:59-0400 Body weight 34.84 kg [facility] PA-C Work Phone: [employer]; [employer]. 05-17-2011 08:59-0400 Inhaled oxygen concentration 20 % [facility] PA-C Work Phone: [employer]; [employer]. Comment on above: Room air 05-17-2011 08:59-0400 Inhaled oxygen concentration 21 % [facility] PA-C Work Phone: [employer]; [employer]. Comment on above: Room air 05-17-2011 08:59-0400 SaO2% (BldA) [Mass fraction] 98 % [facility] PA-C Work Phone: [employer]; [employer]. 03-05-2011 15:03-0400 Body height 144.78 cm Conchita Hawthorne RN [employer] 03-05-2011 15:03-0400 Body mass index (BMI) [Percentile] Per age and sex 34 % Conchita Hawthorne RN [employer] 03-05-2011 15:03-0400 Body mass index (BMI) [Ratio] 16.1 kg/m2 Conchita Hawthorne RN [employer] 03-05-2011 15:03-0400 Body surface area Derived from formula 1.18 m2 Conchita Hawthorne RN [employer] 03-05-2011 15:03-0400 Body temperature 98.5 [degF] Conchita Hawthorne RN [employer]. Comment on above: Method: Tympanic 03-05-2011 15:03-0400 Body weight 33.75 kg Conchita Hawthorne RN [employer]. 10-09-2010 16:19-0400 Body height 142.24 cm Mandi Maldonado RN Work Phone: [employer]. 10-09-2010 16:19-0400 Body mass index (BMI) [Percentile] Per age and sex 35 % Mandi Maldonado RN Work Phone: [employer]. 10-09-2010 16:19-0400 Body mass index (BMI) [Ratio] 15.92 kg/m2 Mandi Maldonado RN Work Phone: [employer]. 10-09-2010 16:19-0400 Body surface area Derived from formula 1.14 m2 Mandi Maldonado RN Work Phone: [employer]. 10-09-2010 16:19-0400 Body temperature 98.1 [degF] Mandi Maldonado RN Work Phone: [employer]. Comment on above: Method: Tympanic 10-09-2010 16:19-0400 Body weight 32.21 kg Mandi Maldonado RN Work Phone: [employer] 09-07-2010 13:03-0500 Body height 139.7 cm Mandi Maldonado RN Work Phone: [employer] 09-07-2010 13:03-0500 Body mass index (BMI) [Percentile] Per age and sex 38 % Mandi Maldonado RN Work Phone: [employer] 09-07-2010 13:03-0500 Body mass index (BMI) [Ratio] 16.04 kg/m2 Mandi Maldonado RN Work Phone: [employer] 09-07-2010 13:03-0500 Body surface area Derived from formula 1.11 m2 Mandi Maldonado RN Work Phone: [employer].; [employer] 09-07-2010 13:03-0500 Body temperature 98.1 [degF] Mandi Maldonado RN Work Phone: [employer]. Comment on above: Method: Tympanic 09-07-2010 13:03-0500 Body weight 31.3 kg Mandi Maldonado RN Work Phone: [employer] 07-07-2010 08:41-0500 Body height 140.34 cm Anna Marie Sales PA-C Work Phone: [employer].; [employer] 07-07-2010 08:41-0500 Body mass index (BMI) [Percentile] Per age and sex 46 % Anna Marie Sales PA-C Work Phone: [employer] 07-07-2010 08:41-0500 Body mass index (BMI) [Ratio] 16.35 kg/m2 Anna Marie Sales PA-C Work Phone: [employer] 07-07-2010 08:41-0500 Body surface area Derived from formula 1.13 m2 Anna Marie Sales PA-C Work Phone: [employer] 07-07-2010 08:41-0500 Body temperature 99 [degF] Anna Marie Sales PA-C Work Phone: [employer] 07-07-2010 08:41-0500 Body weight 32.21 kg Anna Marie Sales PA-C Work Phone: [employer]; [employer]. Encounters Encounter Date Encounter Type Care Provider Facility Start: 06-01-2025 End: 06-01-2025 ambulatory Anna Marie Sales PA Facility:[facility] Start: 05-28-2025 ambulatory Anna Marie Sales PA Facil ity:[facility] Start: 05-20-2025 End: 05-20-2025 ambulatory Anna Marie Sales PA Facility:[facility] Start: 05-03-2025 End: 05-03-[address] Rita Rivas DO -[facility] Work Phone: Start: 05-03-2025 End: 05-03-2025 ambulatory Anna Marie Sales PA Work Phone: -[facility] Start: 04-22-2025 End: 04-22-[address] Maia Gan MD -[facility] Work Phone: Start: 04-22-2025 End: 04-22-2025 ambulatory Anna Marie Sales PA Work Phone: -[facility] Start: 04-20-2025 End: 04-20-2025 Patient encounter procedure Mechelle Francois OIL AND GAS SPECIALIST-C -Laboratory Work Phone: Start: 04-20-2025 End: 04-20-2025 ambulatory Anna Marie Sales PA Facility:[facility] Start: 04-07-2025 End: 04-07-2025 ambulatory Anna Marie Sales PA Work Phone: -[facility] Start: 04-07-2025 End: 04-07-2025 Patient encounter procedure Mechelle Francois OIL AND GAS SPECIALIST-C -[facility] Work Phone: Start: 04-07-2025 End: 04-07-2025 ambulatory Anna Marie Sales PA Facility:[facility] Start: 03-31-2025 End: 03-31-2025 ambulatory Anna Marie Sales PA Work Phone: -Laboratory Specimen Start: 03-31-2025 End: 03-31-2025 Patient encounter procedure Mechelle Francois OIL AND GAS SPECIALIST-C -Laboratory Specimen Work Phone: Start: 03-31-2025 End: 03-31-2025 Patient encounter procedure Mechelle DOWNING -[facility] Work Phone: Start: 03-31-2025 End: 03-31-2025 ambulatory Anna Marie Sales PA Work Phone: -[facility] Start: 03-31-2025 End: 03-31-2025 ambulatory Anna Marie Sales PA Facility:[facility] Start: 03-11-2025 End: 03-11-2025 Patient encounter procedure Kehinde Anand CNM -[facility] Work Phone: Start: 03-11-2025 End: 03-11-2025 ambulatory Anna Marie Sales PA Work Phone: -[facility] Start: 03-11-2025 End: 03-11-2025 ambulatory Anna Marie Sales PA Facility:[facility] Start: 03-03-2025 ambulatory Rita Wolfe cility:[facility] Start: 03-03-2025 Non-patient / Non-visit Dr. Johnnie Rivas DO -[facility] Start: 03-03-2025 End: 03-03-2025 ambulatory Anna Marie Sales PA Work Phone: -[facility] Start: 03-03-2025 End: 03-03-[address] [facility] Work [facility]: Start: 02-18-2025 End: 02-18-[address] Maia Gan MD -[facility] Start: 02-18-2025 End: 02-18-2025 ambulatory [facility] Start: 02-18-2025 End: 02-18-2025 ambulatory Anna Marie Sales PA Facility:[facility] Start: 02-09-2025 End: 02-09-[address] Maia Gan MD -[facility] Work Phone: Start: 02-09-2025 End: 02-09-2025 ambulatory Anna Marie Sales PA Work Phone: -[facility] Start: 02-04-2025 End: 02-04-2025 ambulatory LAURENEliseo Gia [facility] Start: 01-15-2025 End: 01-15-[address] Rita Rivas DO -[facility] Work Phone: Start: 01-15-2025 End: 01-15-2025 ambulatory Anna Marie Sales PA Work Phone: -[facility] Start: 01-06-2025 End: 01-06-[address] Maia Gan MD -Medical Out Work Phone: Start: 01-06-2025 End: 01-06-2025 ambulatory Anna Marie Sales PA Work Phone: [facility] Work Phone: Start: 12-23-2024 End: 12-23-2024 Patient encounter procedure Kehinde Anand CNM -[facility] Out Work Phone: Start: 12-23-2024 End: 12-23-2024 ambulatory Anna Marie Sales PA Work Phone: [facility] Work Phone: Start: 12-21-2024 End: 12-21-2024 Patient encounter procedure Kehinde Anand CNM -[facility] Work Phone: Start: 12-21-2024 End: 12-21-2024 ambulatory Anna Marie Sales PA Work Phone: [facility] Work Phone: Start: 12-21-2024 End: 12-21-2024 ambulatory Anna Marie Sales PA Facility:[facility] Start: 12-16-2024 End: 12-16-2024 Office outpatient visit 15 minutes Anna Marie Sales PA-C Work Phone: [facility] Start: 11-19-2024 End: 11-19-2024 Patient encounter procedure Kehinde Vlad HIGGINS -[facility] Work Phone: Start: 11-19-2024 End: 11-19-2024 ambulatory Anna Marie Henrry GOMEZ Facility:[facility] Start: 11-19-2024 End: 11-19-2024 ambulatory Anna Marie GOMEZ Facility:[facility] Start: 11-03-2024 End: 11-03-2024 Patient encounter procedure Mechelle Francois OIL AND GAS SPECIALIST-C -[facility] Work Phone: Start: 11-03-2024 End: 11-03-2024 ambulatory Anna Marie Henrry GOMEZ Facility:[facility] Start: 06-12-2024 End: 06-12-2024 Patient encounter procedure Anna Marie Headley Henrry GRIMALDOC Work Phone: [facility].; [employer]. Start: 06-12-2024 End: 06-12-2024 Periodic preventive med est patient 18-39 yrs Anna Marie Sales PA-C Work Phone: [facility] Start: 06-12-2024 Patient encounter status Madina Jules LPN [facility].; [facility]. Start: 06-12-2024 Review Anna Marie GOMEZ-Gia Work Phone: [facility] Start: 03-30-2024 End: 03-30-2024 Refill Elijah Lyman APRN.QUALITY CONTROL CHECKER Work Phone: OB/Gynecology Comment on above: Med Change Request Start: 03-30-2024 End: 03-30-2024 ambulatory Elijah Lyman APRN.QUALITY CONTROL CHECKER Work Phone: OB/Gynecology Comment on above: Dyspareunia in femal e (Primary Dx) Start: 03-30-2024 End: 03-30-2024 Telemedicine consultation with patient Elijah Lyman QUALITY CONTROL CHECKER Work Phone: OB/Gynecology Start: 03-20-2024 End: 03-20-2024 ambulatory ELIJAH LYMAN OB/Gynecology Start: 03-20-2024 End: 03-20-2024 Patient encounter procedure [employer] 1 [employer] OB/Gynecology Start: 03-11-2024 End: 03-11-2024 ambulatory ELIJAH LYMAN Facility:[facility] Start: 03-11-2024 End: 03-11-2024 Patient encounter procedure Elijah Lyman CHIEF CONTROLLER TOWER.QUALITY CONTROL CHECKER Work Phone: OB/Gynecology Comment on above: Dyspareunia in femal e (Primary Dx); Screen for STD (sexually transmitted disease); Encounter for screening for malignant neoplasm of cervix Start: 01-03-2024 End: 01-03-2024 Orders Anna Marie Sales PA-C Work Phone: [employer] Start: 12-30-2023 End: 12-30-2023 Orders Anna Marie Sales PA-C Work Phone: [employer]. Start: 05-01-2023 End: 05-01-2023 Medication Anna Marie Sales PA-C Work Phone: [employer]. Start: 04-15-2023 End: 04-15-2023 Orders Anna Marie Sales PA-C Work Phone: [employer]. Start: 12-14-2022 End: 12-14-2022 Orders Anna Marie Sales PA-C Work Phone: [employer]. Start: 12-05-2022 End: 12-05-2022 Orders Anna Marie Sales PA-C Work Phone: [employer]. Start: 11-30-2022 End: 12-03-2022 Orders Anna Marie Sales PA-C Work Phone: [employer]. Start: 11-28-2022 End: 11-28-2022 Patient encounter procedure Anna Marie Sales PA-C Work Phone: [employer] Start: 11-28-2022 End: 11-28-2022 Patient encounter status Anna Marie Sales PA-C Work Phone: [employer] Start: 10-17-2022 End: 10-17-2022 ambulatory [facility] Work Phone: Start: 10-17-2022 End: 10-17-2022 Patient encounter procedure [facility] Start: 07-31-2022 End: 07-31-2022 Office outpatient visit 15 minutes Anna Marie Sales PA-C Work Phone: [employer] Start: 01-29-2022 End: 01-29-2022 Office outpatient visit 15 minutes Anna Marie Sales PA-C Work Phone: [employer]. Start: 12-08-2021 End: 12-08-2021 Patient encounter procedure Anna Marie Sales PA-C Work Phone: [employer]. Start: 12-08-2021 End: 12-08-2021 Patient encounter status Anna Marie Sales PA-C Work Phone: [employer] Start: 06-09-2021 End: 06-09-2021 Office outpatient visit 15 minutes Anna Marie Sales PA-C Work Phone: [employer]. Start: 02-17-2021 End: 02-17-2021 Office outpatient visit 15 minutes Anna Marie Sales PA-C Work Phone: [employer]. Start: 08-05-2020 End: 08-05-2020 Office outpatient visit 25 minutes Anna Marie Sales PA-C Work Phone: [employer]. Start: 08-18-2019 End: 08-18-2019 Office outpatient visit 25 minutes Anna Marie Sales PA-C Work Phone: [employer]. Start: 06-08-2019 End: 06-08-2019 Office outpatient visit 15 minutes Anna Marie Sales PA-C Work Phone: [employer]. Start: 12-18-2018 End: 12-18-2018 Patient encounter procedure NATALIA LIANG [facility] Start: 11-15-2018 End: 11-15-2018 Orders Anna Marie Sales PA-C Work Phone: [employer]. Start: 11-14-2018 End: 11-14-2018 Patient encounter procedure ANNA MARIE Headley SALES [facility] Start: 11-03-2018 End: 11-03-2018 Orders Anna Marie Sales PA-C Work Phone: [employer]. Start: 10-30-2018 End: 10-30-2018 Office outpatient visit 15 minutes Anna Marie Sales PA-C Work Phone: [employer]. Start: 06-23-2018 End: 06-23-2018 Orders Anna Marie Sales PA-C Work Phone: [employer]. Start: 06-20-2018 End: 06-22-2018 Office outpatient visit 15 minutes Anna Marie Sales PA-C Work Phone: [employer]. Start: 04-22-2018 End: 04-22-2018 Office outpatient visit 15 minutes Anna Marie Sales PA-C Work Phone: [employer]. Start: 04-14-2018 End: 04-14-2018 Office outpatient visit 25 minutes Anna Marie Sales PA-C Work Phone: [employer]. Start: 01-28-2018 End: 01-28-2018 Ambulatory [facility] Start: 01-28-2018 End: 01-28-2018 Patient encounter procedure Anna Marie Sales PA-C Work Phone: [employer]. Start: 01-28-2018 End: 01-28-2018 Patient encounter status Jaziel Nam LPN [employer] Start: 12-13-2016 End: 12-13-2016 Patient encounter procedure Anna Marie Sales PA-C Work Phone: [employer]. Start: 11-06-2016 End: 11-06-2016 Office outpatient visit 15 minutes Anna Marie Darlinger PA-C Work Phone: [employer]. Start: 10-18-2016 End: 10-18-2016 Patient encounter procedure Anna Mariemarley Darlinger PA-C Work Phone: [employer]. Start: 10-04-2016 End: 10-04-2016 Patient encounter procedure Anna Marie Sales PA-C Work Phone: [employer]. Start: 05-09-2016 End: 05-09-2016 Patient encounter procedure Anna Marie Sales PA-C Work Phone: [employer]. Start: 04-25-2016 End: 04-25-2016 Medication Anna Marie Darlinger PA-C Work Phone: [employer]. Start: 04-04-2016 End: 04-04-2016 Patient encounter procedure Anna Marie Sales PA-C Work Phone: [employer]. Start: 03-21-2016 End: 03-21-2016 Patient encounter procedure Anna Marie Darlinger PA-C Work Phone: [employer]. Start: 03-21-2016 End: 03-21-2016 Patient encounter status Conchita Hawthorne RN [employer]. Start: 11-07-2015 End: 11-07-2015 Office outpatient visit 25 minutes Anna Marie Sales PA-C Work Phone: [employer]. Start: 02-09-2015 End: 02-09-2015 Patient encounter procedure Anna Marie Sales PA-C Work Phone: [employer]. Start: 02-09-2015 End: 02-09-2015 Routine infant or child health check Anna Marie Sales PA-C Work Phone: [employer] Start: 06-09-2014 End: 06-09-2014 Nursing evaluation of patient and report Anna Marie Sales PA-C Work Phone: [facility]. Start: 11-13-2013 End: 11-13-2013 Patient encounter procedure Anna Marie Sales PA-C Work Phone: [facility] Start: 07-02-2013 End: 07-02-2013 Nursing evaluation of patient and report Anna Marie Sales PA-C Work Phone: [facility]. Start: 02-05-2013 End: 02-05-2013 Orders Anna Marie Sales PA-C Work Phone: [facility]. Start: 01-30-2013 End: 01-30-2013 Patient encounter procedure Anna Marie Sales PA-C Work Phone: [facility] Start: 01-30-2013 End: 01-30-2013 Routine infant or child health check Mandi Maldonado RN Work Phone: [facility].; [employer]. Start: 08-01-2012 End: 08-01-2012 Patient encounter procedure Anna Marie GOMEZ-C Work Phone: [employer] [facility] Start: 05-07-2012 End: 05-07-2012 Patient encounter procedure Anna Marie Sales PA-C Work Phone: [place] [employer] [facility] Start: 04-30-2012 End: 04-30-2012 Patient encounter procedure Anna Marie Sales PA-C Work Phone: [employer] [facility]. Start: 11-22-2011 End: 11-22-2011 Patient encounter procedure Anna Marie Sales PA-C Work Phone: [employer] Start: 07-26-2011 End: 07-26-2011 Patient encounter procedure Anna Marie Sales PA-C Work Phone: [employer] Start: 06-26-2011 End: 06-26-2011 Patient encounter procedure Anna Marie Sales PA-C Work Phone: [employer] Start: 05-30-2011 End: 05-30-2011 Patient encounter procedure Anna Marie Sales PA-C Work Phone: [facility] Start: 05-17-2011 End: 05-17-2011 Patient encounter procedure Anna Marie Sales PA-C Work Phone: [facility] Start: 03-05-2011 End: 03-05-2011 Patient encounter procedure Anna Marie Sales PA-C Work Phone: [facility] Start: 10-09-2010 End: 10-09-2010 Patient encounter procedure Anna Marie Sales PA-C Work Phone: [facility] Start: 09-07-2010 End: 09-07-2010 Patient encounter procedure Anna Marie Sales PA-C Work Phone: [facility] Start: 09-07-2010 End: 09-07-2010 Routine or child health check Anna Marie Sales PA-C Work Phone: [facility].; [employer]. Start: 07-07-2010 End: 07-07-2010 Patient encounter procedure Anna Marie Sales PA-C Work Phone: [facility] Routine infant or ch ild health check Ángela Gottlieb Jeny PA-C Work Phone: [facility].; [employer] Routine or ch ild health check Rita English LPN [facility].; [facility] Procedures Date Procedure Procedure Detail Performing Clinician [...] HCV Quant by PCR testing - HCVPCR #[id number] Non Reactive: < 0.8 Equivocal: >/= 0.8 to < 1.0 Reactive: >/= 1.0The [facility] requires that a reactive/equivocal HCV antibody result be sent out for confirmation. HCV Quant by PCR testing. Start: 11-19-2024 Procedure Anna Marie GOMEZ Work Phone: Comment on above: Test Ordered: [id number] TSH Receptor Antibody (TBII)TSH Receptor Antibody (TBII) <0.3 U/L ES Reference Range: .Reference Range:Antibody Titer:<1.0 U/L = Negative1.1 - 1.5 U/L = Equivocal>1.5 U/L = PositivePerformed at: ES [facility] [address] [id number] Director: Jeronimo Holden MD, Phone: [phone] at: [facility] [id number] Director: Sandeep Bae PhD, Phone: [phone] Start: 11-19-2024 Rubella IgG measurement Anna Marie [...] nonobstetr ic real-time image complete Elijah Lyman MINOR.QUALITY CONTROL CHECKER Work Phone: Start: 06-21-2023 End: 06-21-2023 Cataldo Teeth Extraction Anna Marie Headley Sales PA-C [...] 04-04-2016 End: 04-30-2017 Pressurized/nonpressurized inhalation treatment Ángela Gottileb Jeny GOMEZ-C Work Phone: Comment on above: [...] ant neoplasm of cervix Cervical Cancer Screening [facility] Start: 07-01-2025 ambulatory Ambulatory Facility:[facility] Start: 04-20-2025 Patient encounter procedure Registered Clinical -Laboratory Work Phone: Start: 04-07-2025 Bacteria identified in Urine by Culture Urine Culture [facility] Start: 04-07-2025 [facility] Start: 03-11-2025 CBC W Auto Different ial panel - Blood [facility] Start: 03-11-2025 Comprehensive metabo lic 2000 panel - Serum or Plasma [facility] Start: 03-11-2025 Thyroid stimulating hormone measurement [facility] Start: 03-11-2025 GC (Gonorrhea) Scree lovely (18-24) GC (Gonorrhea) Screening (18-24) [facility] Start: 03-11-2025 Screening for Chlamy mya trachomatis Chlamydia Screening (18-24) [facility] Start: 03-03-2025 [facility] Start: 03-03-2025 Nonstress test [facility] Start: 03-03-2025 Obstetric monitoring [facility] Start: 03-03-2025 Vital signs measurements [facility] Start: 03-03-2025 [facility] Start: 01-06-[address] ug or medicament by intravenous push THER/PROPH/DIAG INJ IV PUSH [facility] Start: 01-06-2025 Iv infusion hydratio n each additional hour HYDRATE IV INFUSION ADD-ON [facility] Start: 01-06-2025 Ther proph/dx njx iv push single/1st sbst/drug THER/PROPH/DIAG INJ IV PUSH [facility] Start: 12-23-2024 Iv infusion hydratio n each additional hour HYDRATE IV INFUSION ADD-ON [facility] Start: 12-23-2024 Ther proph/dx njx iv push single/1st sbst/drug THER/PROPH/DIAG INJ IV PUSH [facility] Start: 06-12-2024 Comprehensive metabo lic panel CMP w/ GFR* ([id number]) Start: 12-Jun-2024 10:37-05:00 Request [employer]; [employer] Start: 06-12-2024 Assay of ferritin FERRITIN ([id number]) Start: 12-Jun-2024 10:37-05:00 Request [employer]; [employer]. Start: 06-12-2024 Blood count complete auto&auto difrntl wbc CBC, PLATELETS & AUT DIFF (F) ([id number]) Start: 12-Jun-2024 10:37-05:00 Request [employer]; [employer] Start: 06-12-2024 Assay of free thyroxine T4 CASANDRA E ([id number]) Start: 12-Jun-2024 10:36-05:00 Request [employer]; [employer] Start: 06-12-2024 Assay of thyroid stimulating hormone tsh TSH (THYROID STIMULATING HORMONE) ([id number]) Start: 12-Jun-2024 10:36-05:00 Request [employer]. Start: 06-12-2024 Patient encounter procedure Medical; PHYSICAL - physical [facility]. Start: 12-Jun-2024 10:00-05:00 JUAN Sales Appointment Request [facility] [employer]. Start: 03-30-2024 End: 03-30-2024 Follow-up encounter 03/30/2024 8:45 AM EDT [facility] OB/Gynecology [address] [place] [address] Elijah Lyman APRN.QUALITY CONTROL CHECKER [address] [place], [place] [id number] us follow up OB/Gynecology Comment on above: us follow up Start: 03-22-2024 Covid-19 Vaccine ( season) Covid-19 Vaccine () [facility] Start: 03-22-2024 Influenza vaccination Influenza Vacc ine (#1) [facility] Start: 03-20-2024 End: 03-20-2024 ambulatory 03/20/2024 9:00 AM EDT Procedure OB/Gynecology [address] [place], [place] [id number] Dyspareunia in female [N94.10] OB/Gynecology Comment on above: Dyspareunia in femal e [N94.10] Start: 03-11-2024 End: 03-11-2025 US Pelvis PELVIC US [facility] Anc Imaging Routine Dyspareunia in female Expected: 03/11/2024, Expires: 03/11/2025 [facility] Work Phone: Comment on above: Expected: 03/11/2024 , Expires: 03/11/2025 Start: 01-03-2024 Assay of thyroid stimulating hormone tsh [employer] Start: 01-03-2024 Nursing evaluation o f patient and report Medical; Nurse visit - TSH mjp [employer]. Start: 03-Jan-2024 10:40-04:00 NURSE, FLOAT Appointment Request [facility]. Start: 03-22-2023 Covid-19 Vaccine ( season) Covid-19 Vaccine ( season) [facility] Start: 2021 Screening for malign ant neoplasm of cervix Cervical Cancer Screening [facility] Start: 12-18-2019 Hepatitis B Vaccine (1 of 3 - 19+ 3-dose series) Hepatitis B Vaccine (1 of 3 - 19+ 3-dose series) [facility] Start: 12-18-2019 Urine microalbumin profile DTa P,Tdap,Td Vaccine (1 - Tdap) [facility] Start: 2018 Anxiety Screening Anxiety Screening [facility] Start: 2018 Depression Screening Depression Scre ening [facility] Start: 2018 GC (Gonorrhea) Scree lovely () GC (Gonorrhea) Screening () [facility] Start: 2018 Hepatitis C screening Hepatitis C Sc reening [facility] Start: 2018 HIV screening [facility] Start: 2018 Screening for Chlamy mya trachomatis Chlamydia Screening () [facility] Start: 2016 Meningococcal B Vacc ine: Consider Based On Risk (1 of 2 - Patient Seeks Protection) Meningococcal B Vaccine: Consider Based On Risk (1 of 2 - Patient Seeks Protection) [facility] Start: 12-18-2015 HPV Vaccine (1 - 3-d ose series) HPV Vaccine (1 - 3-dose series) [facility] Start: 2014 Peds To Adult Transi tion Annual Assessment Peds To Adult Transition Annual Assessment [facility] Start: 2012 Peds To Adult Transi tion Initial Discussion Peds To Adult Transition Initial Discussion [facility] Alanine aminotransfe rase [Enzymatic activity/volume] in Serum or Plasma [facility] Albumin [Mass/volume ] in Serum or Plasma [facility] Alkaline phosphatase [Enzymatic activity/volume] in Serum or Plasma [facility] Anion gap in Serum o r Plasma [facility] BACTERIAL VAGINOSIS NAAT BACTERI AL VAGINOSIS NAAT Lab Routine Dyspareunia in female 03/11/2024 8:10 AM EDT [facility] Bilirubin, total measurement [facility] BUN/Creatinine ratio [facility] Calcium [Mass/volume ] in Serum or Plasma [facility] FLORIDALMA/TRICHOMONAS NAAT FLORIDALMA /TRICHOMONAS NAAT Lab Routine Dyspareunia in female 03/11/2024 8:10 AM EDT [facility] Carbon dioxide, tota l [Moles/volume] in Central venous blood [facility] Chlamydia trachomatis+Neisseria gonorrhoeae DNA [Presence] in Unspecified specimen by ANIRUDH with probe detection GONORRHEA/CHLAMYDIA NAAT Lab Routine Screen for STD (sexually transmitted disease) 03/11/2024 8:10 AM EDT [facility] Creatinine [Mass/vol ume] in Serum or Plasma [facility] Erythrocyte mean corpuscular volume determination [facility] Erythrocyte mean corpuscular volume determination [facility] Glucose [Mass/volume ] in Serum or Plasma [facility] Hematocrit [Volume Fraction] of Blood [facility] Hematocrit [Volume Fraction] of Blood [facility] Hemoglobin [Mass/vol ume] in Blood [facility] Hemoglobin [Mass/vol ume] in Blood [facility] Leukocytes [#/volume ] in Blood [facility] Leukocytes [#/volume ] in Blood [facility] Mean corpuscular hemoglobin concentration determination [facility] Mean corpuscular hemoglobin concentration determination [facility] Mean corpuscular hemoglobin determination [facility] Mean corpuscular hemoglobin determination [facility] Measurement of gluco se 2 hours after glucose challenge for glucose tolerance test [facility] Measurement of renal function [facility] Neutrophil count [facility] Neutrophil count [facility] Neutrophil percent differential count [facility] Neutrophil percent differential count [facility] PAP TEST PAP TEST Lab Rou shannon Encounter for screening for malignant neoplasm of cervix 03/11/2024 8:10 AM EDT [facility] Patient Education Kick Counts ED False Labor OB Triage: Return to Hospital or Notify Physician if you Experience: [facility] Work Phone: Platelets [#/volume] in Blood [facility] Platelets [#/volume] in Blood [facility] Potassium measurement [facility] Red blood cell count [facility] Red blood cell count [facility] Red cell distributio n width determination [facility] Red cell distributio n width determination [facility] Serologic test for syphilis [facility] Serum chloride measurement [facility] Sodium measurement [facility] Thyroid stimulating hormone measurement [facility] Total protein measurement [facility] Urea nitrogen [Mass/volume] in Serum or Plasma [facility] Urine culture [facility] Urine culture [facility] Immunizations Immunization Date Immunization Notes Care Provider Fa cility 04-22-2025 tetanus toxoid, redu marissa diphtheria toxoid, and acellular pertussis vaccine, adsorbed Anna Marie GOMEZ Work Phone: [facility] 03-10-2021 COVID-Faby (AD26 .5 ML) Anna Marie Sales PA-C Work Phone: [employer] 01-28-2018 Meningococcal, MCV4, unspecified conjugate formulation(groups A, C, Y and W-135) Anna Marie Sales PA-C Work Phone: [employer]; [employer] 01-28-2018 Counseled parent on risks/benefits of vaccines ([id number]) Anna Marie Sales PA-C Work Phone: [employer]; [employer] 01-28-2018 meningococcal polysaccharide (groups A, C, Y and W-135) diphtheria toxoid conjugate vaccine (MCV4P) Anna Marie Sales PA-C Work Phone: [employer]; [employer]. Comment on above: Site: Left DeltoidVI S Given: * Meningococcal Vaccine (10/20/2015) 06-09-2014 influenza, seasonal, injectable Anna Marie GOMEZ-Gia Work Phone: [employer]; [employer] Comment on above: Site: Deltoid (Left) VIS Given: * Influenza, Inactivated () 06-09-2014 IMMUNIZATION ADMIN ([id number]) Anna Marie Sales PA-C Work Phone: [employer]; [employer] 07-02-2013 influenza, seasonal, injectable Anna Marie Sales PA-C Work Phone: [facility] [employer] Comment on above: Site: Deltoid (Left) VIS Given: * Inactivated Influenza Vaccine (03/01/09) * Inactivated Influenza Vaccine (02/13/11) * Influenza vaccine [id number], inactivated (01/21/2012) * Influenza, Inactivated () * VIS Given (Unspecified) 07-02-2013 IMMUNIZATION ADMIN ([id number]) Anna Marie Sales PA-C Work Phone: [employer]; [employer] 02-05-2013 varicella virus vaccine Mercedes pattie Sales PA-C Work Phone: [employer]; [employer]. Comment on above: Site: Deltoid Area ( Left)VIS Given: * Varicella (Chickenpox) (10/02/07) 01-30-2013 tetanus toxoid, redu marissa diphtheria toxoid, and acellular pertussis vaccine, adsorbed Anna Marie Sales PA-C Work Phone: [employer]; [employer]. Comment on above: Site: Deltoid (Left) VIS Given: * Tetanus/Diphtheria/(Pertussis) (Td/Tdap) (06/08/08) * Tetanus/Diptheria/Pertussis (Tdap/Td) 08/14/11 10-03-2005 diphtheria, tetanus toxoids and acellular pertussis vaccine Anna Marie Sales PA-C Work Phone: [employer] 10-03-2005 measles, mumps and rubella virus vaccine Anna Marie Sales PA-C Work Phone: [employer] [facility] 10-03-2005 poliovirus vaccine, inactivated Anna Marie Sales PA-C Work Phone: [employer] 08-31-2002 diphtheria, tetanus toxoids and acellular pertussis vaccine Anna Marie Sales PA-C Work Phone: [facility].; [facility] 08-31-2002 varicella virus vaccine Mercedeschristy Darlinger PA-C Work Phone: [facility].; [facility] 03-19-2002 measles, mumps and rubella virus vaccine Anna Marie Sales PA-C Work Phone: [facility].; [facility] 02-27-2002 hepatitis B vaccine, pediatric or pediatric/adolescent dosage Anna Marie Sales PA-C Work Phone: [facility].; [facility] 06-18-2001 diphtheria, tetanus toxoids and acellular pertussis vaccine Anna Marie Sales PA-C Work Phone: [facility].; [facility] 06-18-2001 haemophilus influenz ae type b vaccine, PRP-T conjugate Anna Marie Sales PA-C Work Phone: [facility].; [facility] 06-18-2001 pneumococcal conjuga te vaccine, 7 valent Anna Marie Sales PA-C Work Phone: [facility].; [facility] 06-18-2001 poliovirus vaccine, inactivated Anna Marie Sales PA-C Work Phone: [facility].; [facility] 04-16-2001 diphtheria, tetanus toxoids and acellular pertussis vaccine Anna Marie Sales PA-C Work Phone: [facility].; [facility] 04-16-2001 haemophilus influenz ae type b vaccine, PRP-T conjugate Anna Marie Sales PA-C Work Phone: [facility].; [facility] 04-16-2001 pneumococcal conjuga te vaccine, 7 valent Anna Marie Sales PA-C Work Phone: [facility].; [facility] 04-16-2001 poliovirus vaccine, inactivated Anna Marie Sales PA-C Work Phone: [facility].; [facility] 02-25-2001 pneumococcal conjuga te vaccine, 7 valent Anna Marie Sales PA-C Work Phone: [facility].; [facility] 02-21-2001 diphtheria, tetanus toxoids and acellular pertussis vaccine Anna Marie Sales PA-C Work Phone: [facility].; [facility] 02-21-2001 haemophilus influenz ae type b vaccine, PRP-T conjugate Anna Marie Sales PA-C Work Phone: [facility].; [facility] 02-21-2001 poliovirus vaccine, inactivated Anna Marie Sales PA-C Work Phone: [facility].; [facility] 01-21-2001 hepatitis B vaccine, pediatric or pediatric/adolescent dosage Anna Marie Sales PA-C Work Phone: [facility].; [facility] 2000 hepatitis B vaccine, pediatric or pediatric/adolescent dosage Anna Marie Sales PA-C Work Phone: [facility].; [facility] Payers Date Payer Category Payer Self-pay [id number] 2024 Unknown [id number] 2023 Unknown [id number] 2023 Unknown [id number] 2000 Unknown [id number] 2.16.84 0.1.911429.3.579.2.651 2000 Unknown [id number] 2.16. 840.1.280468.3.579.2.479 2000 Unknown [id number] 2.16. 840.1.877023.3.579.2.479 1961 Unknown [id number] 2.16.84 0.1.468721.3.579.2.651 Private Health Insurance [id number] Unknown [id number] Unknown [id number] 2.16.8 40.1.032845.3.579.2.462 Unknown [id number] 2.16.8 40.1.164249.3.579.2.462 Unknown [id number] 2.16.8 40.1.051701.3.579.2.462 Unknown [id number] 2.16.8 40.1.018728.3.579.2.462 Unknown [id number] 2.16.8 40.1.253758.3.579.2.462 Unknown [id number] 2.16.8 40.1.972721.3.579.2.462 Unknown [id number] 2.16.8 40.1.061014.3.579.2.462 Unknown [id number] 2.16.8 40.1.739594.3.579.2.462 Unknown [id number] 2.16.8 40.1.746603.3.579.2.462 Unknown [id number] 2.16.8 40.1.538822.3.579.2.462 Unknown [id number] 2.16.8 40.1.949913.3.579.2.462 Unknown [id number] 2.16.8 40.1.328226.3.579.2.462 Unknown [id number] 2.16.8 40.1.369512.3.579.2.462 Unknown [id number] 2.16.8 40.1.357402.3.579.2.462 Unknown [id number] 2.16.8 40.1.839789.3.579.2.462 Unknown [id number] 2.16.8 40.1.426223.3.579.2.462 Unknown [id number] 2.16.8 40.1.287373.3.579.2.462 Unknown [id number] 2.16.8 40.1.390384.3.579.2.462 Unknown [id number] 2.16.8 40.1.039646.3.579.2.462 Unknown [id number] 2.16.8 40.1.017777.3.579.2.462 Unknown [id number] 2.16.8 40.1.055554.3.579.2.462 Unknown [id number] 2.16.8 40.1.927638.3.579.2.462 Unknown [id number] 2.16.8 40.1.135729.3.579.2.462 Unknown [id number] 2.16.8 40.1.326601.3.579.2.462 Unknown [id number] 2.16.8 40.1.925119.3.579.2.462 Social History Date Type Detail Facility Start: 11-05-2015 Tobacco smoking stat us ILIS Unknown if ever smoked [facility] Start: 2000 Sex Assigned At Female W [facility] Start: 03-11-2024 End: 03-30-2024 Caffeine Use Caffeine Use [facility] [employer] Tobacco/Smoke Exposure: Tobacco/Smoke Exposure: ; None. [employer] None [employer] Work Phone: Start: 03-11-2024 End: 03-30-2025 Tobacco smoking status NHIS Never smoked tobacco [facility] Start: 03-11-2024 Tobacco use and exposure Smokeless tobacco non-user [facility] Start: 03-11-2024 End: 03-30-2024 Tobacco use panel [facility] National Score (1-100), lower number is lower risk 83 [facility] Start: 2000 Sex assigned at Not on file [facility] Procedure Code Equipment Code Equipment Origin al Text Equipment Identifier Dates Blood Sugar Diagnostic (Blood Glucose Test) strip Start: 04-21-2025 Lancets (Droplet Lancets) 30 gauge [facility] Start: 04-21-2025 Blood Sugar Diagnostic (Blood Glucose Test) strip Start: 04-21-2025 Lancets (Droplet Lancets) 30 gauge [facility] Start: 04-21-2025 Mental Status Date Assessment Result Facility 01-06-2025 Cognitive function Voice/Name [facility] Work Phone: 12-23-2024 Cognitive function Voice/Name [facility] Work Phone: Clinical Notes 03-11-2024 to 05-03-2025 Note Date & Type Note Facility 05-03-2025 Progress note [facility] 04-22-2025 Progress note [facility] 04-22-2025 Progress note Note Date/Time April 22, 2025 4:18pm [facility] [address], [address] [place] [address] OFFICE VISIT Date of Service: 04/22/25 MR#: [id number] Acct: [id number] Name: CHERY MCKEON Rep #: [id number] : 2000 Provider: Dr. Willian Gan MD Age/Sex: 24/F [place] [facility] [place]: Signed Intake Vital Signs 03/11/25 15:18 04/07/25 12:52 04/22/25 15:56 Height 5 ft 5 in 5 ft 5 in 5 ft 5 in Weight: 176 lb 3 oz 179 lb BMI 29.3 29.7 BP 117/80 119/81 H Intake Visit Reasons: 30 WK OB Life Management Teacher Required: No Is patient in pain?: No [...] Negative : No PFSH PFSH Surgical History Cataldo teeth removed S/P cholecystectomy Family History Grandfather Prostate cancer Grandmother Colon cancer CVA (cerebral vascular accident) Grandmother Dementia Father Diabetes Myocardial infarction Skin cancer Mother Heart disease Thyroid disorder Social History adopted: No household members: spouse housing: house current occupational status: employed current occupation: [employer] current occupational exposures/hazards: No pets and animals: [...] 1-2 times per week duration: 15-30 minutes/day guy/temple: Christianity seatbelt use: always do you feel safe at home: Yes 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 Hx Para [...] Performing Provider: Maia Gan MD Performing Location: [facility] Administered by: Mechelle Johnson on 04/22/25 16:08 Dose Route Admin Location Dispensed Lot Number Expiration Date Pack age NDC NDC Circulation Man 0.5 mL IM Left Deltoid 0.5 mL [id number] 03/21/27 [id number] [employer] PASTEUR VIS Given Date VIS Provided VIS [...] Saini Signature: Date (if applicable) CC: ~ [facility] Work Phone: 1(137) 180-381408-21-2025 [facility] [address] [place] [address], [address] [place] [address] OFFICE VISIT Date of Service: 03/11/25 MR#: [id number] Acct: [id number] Name: CHERY MKCEON Rep #: [id number] : 2000 Provider: GISELA Anand Age/Sex: 24/F Location[facility] Status: Signed Intake Vital Signs 01/15/25 14:30 03/03/25 18:25 03/11/25 15:12 03/11/25 15:18 Height 5 ft 5 in 5 ft 5 in 5 ft 5 in 5 ft 5 in Weight: 175 lb 3 oz BMI 29.1 BP 135/86 H Intake Visit Reasons: 24wk ob Chief Complaint: 24wk OB Life Management Teacher Required: No Is patient in pain?: No [...] 09/16/24 : No PFSH PFSH Surgical History Cataldo teeth removed S/P cholecystectomy Family History Grandfather Prostate cancer Grandmother Colon cancer CVA (cerebral vascular accident) Grandmother Dementia Father Diabetes Myocardial infarction Skin cancer Mother Heart disease Thyroid disorder Social History adopted: No household members: spouse housing: house current occupational status: employed current occupation: [employer] current occupational exposures/hazards: No pets and animals: [...] 1-2 times per week duration: 15-30 minutes/day guy/temple: Christianity seatbelt use: always do you feel safe at home: Yes 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 Hx Para [...] Symptoms of Preeclampsia, Infant Feeding No , [place] Education and Family Medical Leave or Disability [...] Cosigner Signature: Date (if applicable) CC: ~ [facility] Progress note Author Kehinde Anand [facility] Note Date/Time March 11, 2025 3: 31pm [facility] [address] [place] [address], [address] [place] [address] OFFICE VISIT Date of Service: 03/11/25 MR#: [id number] Acct: [id number] Name: CHERY MCKEON Rep #: [id number] : 2000 Provider: GISELA Anand Age/Sex: 24/F [place] [facility] Status: Signed Intake Vital Signs 01/15/25 14:30 03/03/25 18:25 03/11/25 15:12 03/11/25 15:18 Height 5 ft 5 in 5 ft 5 in 5 ft 5 in 5 ft 5 in Weight: 175 lb 3 oz BMI 29.1 BP 135/86 H Intake Visit Reasons: 24wk ob Chief Complaint: 24wk OB Life Management Teacher Required: No Is patient in pain?: No [...] 09/16/24 : No PFSH PFSH Surgical History Cataldo teeth removed S/P cholecystectomy Family History Grandfather Prostate cancer Grandmother Colon cancer CVA (cerebral vascular accident) Grandmother Dementia Father Diabetes Myocardial infarction Skin cancer Mother Heart disease Thyroid disorder Social History adopted: No household members: spouse housing: house current occupational status: employed current occupation: [employer] current occupational exposures/hazards: No pets and animals: [...] 1-2 times per week duration: 15-30 minutes/day guy/temple: Christianity seatbelt use: always do you feel safe at home: Yes 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 [place] appropriate handout given. 03/11/25 1998 <Electronically signed by Kehinde walsh CNM> Date _ Kehinde Anand CNM Cosigner Signature: Date (if applicable) CC: ~ [facility] Work Phone: 1(841) 207-280007-22-2025 Evaluation note* Diagnosis Onset Date Resolution Status [...] UTI in acute May 03, 2025 9:26am [facility] Work Phone: 1(981) 200-365607-22-2025 [facility] [address] [place] [address], [address] [place] [address] OFFICE VISIT Date of Service: 02/09/25 MR#: [id number] Acct: [id number] Name: CHERY MCKEON Rep #: [id number] : 2000 Provider: Dr. Willian Gan MD Age/Sex: 24/F [place] [facility] [place]: Signed Intake Vital Signs 12/21/24 15:20 01/15/25 14:30 02/09/25 10:58 Height 5 ft 5 in 5 ft 5 in 5 ft 5 in Weight: 173 lb 2 oz BMI 28.8 BP 129/83 H Intake Visit Reasons: 22 wk ob Life Management Teacher Required: No Is patient in pain?: No [...] Rx promethazine 25 mg rectal 25 mg WV Q4-6H PRN nausea an d 02/09/25 02/09/25 Rx suppository vomiting #12 ea Last Menstrual Period: 09/16/24 Zika: Zika virus screening: Negative : No PFSH PFSH Surgical History Cataldo teeth removed S/P cholecystectomy Family History Grandfather Prostate cancer Grandmother Colon cancer CVA (cerebral vascular accident) Grandmother Dementia Father Diabetes Myocardial infarction Skin cancer Mother Heart disease Thyroid disorder Social History adopted: No household members: spouse housing: house current occupational status: employed current occupation: [employer] current occupational exposures/hazards: No pets and animals: [...] 1-2 times per week duration: 15-30 minutes/day guy/temple: Christianity seatbelt use: always do you feel safe at home: Yes 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 Hx Para [...] 60 tabs 6RF Refilled promethazine 25 mg WV Q4-6H PRN 12 ea 6RF nausea and vomiting 02/09/25 1143 sunitha SMITH> Date _ Maia Gonzalezignjustin Signature: Date (if applicable) CC: ~ [facility]06-27-2025 Evaluation note* Diagnosis Onset Date Resolution Status [...] February 202024 3:08pm Absent nasal bridge acute [facility] 2024 8:57am Nausea and vomiting during acute March 31, 2025 8:57am acute March 8:57am Supervision of high-risk acute March 31, 2025 8:57am [facility] 20[facility] 8:57am Absent nasal bridge acute [facility]2024 12:48pm Sharad's disease acute [facility] 2024 12:48pm acute March 12:48pm Supervision of high-risk acute April 07, 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 UTI in acute [facility] 2024 12:48pm [facility] Work Phone: 1(283) 207-162906-27-2025 Evaluation note* Diagnosis Onset Date Resolution Status [...] 2024 8:57am Absent nasal bridge acute [facility] 2024 12:48pm [facility] 12:48pm acute March 12:48pm Supervision of high-risk acute April 07, 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 [facility] 2024 12:48pm Abnormal glucose acute April 22, 2025 3:51pm Absent nasal bridge acute [facility] 2024 3:51pm Eczema acute April 22, 025 3:51pm Sharad's disease acute [facility] 2024 3:51pm Nausea and vomiting during acute April 22 3:51pm acute April 22, 025 3:51pm Supervision of high-risk acute April 22 3:51pm UTI in acute April 22, 2025 3:51pm [facility] Work Phone: 1(295) 203-269906-02-2025 Evaluation note* Diagnosis Onset Date Resolution Status [...] 2025 8:57am UTI in acute 2024 8:57am [facility] Work Phone: 1(713) 115-729206-02-2025 Evaluation note* Diagnosis Onset Date Resolution Status [...] 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 UTI in acute 2024 12:48pm [facility] Work Phone: 1(352) 813-596606-02-2025 Evaluation note* Diagnosis Onset Date Resolution Status [...] UTI in acute Septembe r 2024 12:48pm [facility] Work Phone: 1(896) 851-860506-02-2025 [facility] [address], [address] [place] [address] OFFICE VISIT Date of Service: 12/21/24 MR#: [id number] Acct: [id number] Name: CHERY MCKEON Rep #: [id number] : 2000 Provider: GISELA Anand Age/Sex: 24/F [place] [facility] [place]: Signed Intake Vital Signs 11/05/15 16:09 11/19/24 08:43 12/21/24 15:20 Height 5 ft 5 in 5 ft 5 in 5 ft 5 in Weight: 170 lb 6 oz 165 lb BMI 28.3 27.4 BP 130/86 H 126/86 H Intake Visit Reasons: 12wk ob Chief Complaint: 12wk OB Life Management Teacher Required: No Is patient in pain?: No [...] tabs promethazine 25 mg rectal 25 mg WV Q4-6H PRN nausea an d 12/21/24 12/21/24 Rx suppository vomiting #12 ea Last Menstrual Period: 09/16/24 PFSH PFSH Surgical History Cataldo teeth removed S/P cholecystectomy Family History Grandfather Prostate cancer Grandmother Colon cancer CVA (cerebral vascular accident) Grandmother Dementia Father Diabetes Myocardial infarction Skin cancer Mother Heart disease Thyroid disorder Social History adopted: No household members: spouse housing: house current occupational status: employed current occupation: 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 see problem list details for updated plan management information and see below for orders placed atthis visit. [place] appropriate handout given. 12/21/24 1541 s BEVERLEYM> Date _ Kehinde Anand CNM Cosigner Signature: Date (if applicable) CC: ~ [facility]06-02-2025 Progress note Author Kehinde Anand [facility] Note Date/Time December 21, 2024 3:41p [facility] [address], [address] [place] [address] OFFICE VISIT Date of Service: 12/21/24 MR#: [id number] Acct: [id number] Name: CHERY MCKEON Rep #: [id number] : 2000 Provider: GISELA Anand Age/Sex: 24/F [place] [facility] [place]: Signed Intake Vital Signs 11/05/15 16:09 11/19/24 08:43 12/21/24 15:20 Height 5 ft 5 in 5 ft 5 in 5 ft 5 in Weight: 170 lb 6 oz 165 lb BMI 28.3 27.4 BP 130/86 H 126/86 H Intake Visit Reasons: 12wk ob Chief Complaint: 12wk OB Life Management Teacher Required: No Is patient in pain?: No [...] tabs promethazine 25 mg rectal 25 mg WV Q4-6H PRN nausea an d 12/21/24 12/21/24 Rx suppository vomiting #12 ea Last Menstrual Period: 09/16/24 PFSH PFSH Surgical History Cataldo teeth removed S/P cholecystectomy Family History Grandfather [...] 1-2 times per week duration: 15-30 minutes/day gyu/temple: Christianity seatbelt use: always do you feel safe at home: Yes 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 see problem list details for updated plan management information and see below for orders placed at this visit. [place] appropriate handout given. 12/21/24 0363 <Electronically signed by Kehinde walsh CNM> Date _ Kehinde Anand GISELA Gonzalezigner Signature: Date (if applicable) CC: ~ [facility] Work Phone: 1(512) 321-489505-01-2025 Evaluation note* Diagnosis Onset Date Resolution Status [...] 3:08pm UTI in acute February 202024 3:08pm [facility] Work Phone: 1(430) 620-672904-15-2025 Evaluation note* Diagnosis Onset Date Resolution Status [...] high-risk acute December 21, 2024 3 :17pm [facility] Work Phone: 1(102) [phone] Evaluation note* Diagnosis Onset Date Resolution Status [...] of high-risk acute January 15, 2025 2:22pm [facility] Work Phone: 1(390) 221-379104-15-2025 Evaluation note* Diagnosis Onset Date Resolution Status [...] of high-risk acute February 09, 2025 10:57am [facility] Work Phone: [phone]) [phone] Telephone encounter Note* Telephone Encounter - Jaye Maher RN - 03/30/2024 2:36 PM EDT Pt notified and voiced understanding. Jaye Maher RN [facility]09-09-2024 Miscellaneous Notes* Telephone Encounter - Jaye Maher RN - 03/30/2024 2:36 PM EDT Pt notified and voiced understanding. Jaye Maher, RN * Telephone Encounter - Rita Reynolds RN - 03/30/2024 11:42 AM EDT Pharmacy comment: Alternative Requested:NOT COVERED BY INSURANCE. documented in this encounterK[facility]09-[facility]-2024 Telephone encounter Note * Telephone Encounter - Rita Reynolds RN - 03/30/2024 11:42 AM EDT Pharmacy comment: Alternative Requested:NOT COVERED BY INSURANCE. [facility]09-09-2024 NoteHNO ID: [id number] Author: ELIJAH LYMAN APRN.QUALITY CONTROL CHECKER Service: ? Author Type: Nurse Practitioner Type: Progress Notes Filed: 03/30/2024 08:58 Note Text: OGI VIRTUAL VISIT Virtual limitations reviewed with patient, as well as possible need to travel to have diagnostic services. Patient voiced understanding. Patient seen on [employer] Video Visit platform. Location of patient: [place] I have communicated my name and active licensure. The patient's identity and physical location were verified at the time of this visit. Either the patient or their legal media sales representative has been informed of the risks and benefits of -- and alternatives to -- treatment through a remote evaluation and consents to proceed with the evaluation remotely. CC HPI: Chery was here on 03/11/24 for dyspareunia. Described the pain at the introitus and anterior part of vulva. [place] that something was rubbing. Described it as a sandpaper sensation. Vaginal cultures were negative. Ultrasound was normal, besides some free fluid in the peritoneal cavity. Was prescribed DHEA cream. Has not noticed a difference. Has a history of eczema and wondering if it can affect the vulva. ROS CMM OPERATOR: + continued irritation around clitoris and introitus [...] eczema. Trial clobetasol. 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 Weaning regimen reviewed. - Follow up in 2-3 weeks or sooner. If not resolved, consider biopsy of vulva. Elijah Lyman APRN.JEANNE Medical Decision Making: Problems: Low: Acute, uncomplicated illness or injury Data: Unique test result(s) reviewed: 1 Risk: Low: Low risk from testing/treatment Moderate: Drug management Medical Decision Making Level: [facility] - [facility] History of Present illness Narrative* Elijah Lyman APRN.JEANNE - 03/30/2024 8:41 AM EDT OGI VIRTUAL VISIT Virtual limitations reviewed with patient, as well as possible need to travel to have diagnostic services. Patient voiced understanding. Patient seen on [employer] Video Visit platform. Location of patient: [place] I have communicated my name and active licensure. The patient's identity and physical location wereverified at the time of this visit. Either the patient or their legal media sales representative has been informed of the risks and benefits of -- and alternatives to -- treatment through a remote evaluation andconsents to proceed with the evaluation remotely. CC HPI: Chery was here on 03/11/24 for dyspareunia. Described the pain at the introitus and anterior part of vulva. [place] that something was rubbing. Described it as a sandpaper sensation. Vaginal cultures were negative. Ultrasound was normal, besides some free fluid in the peritoneal cavity. Was prescribed DHEA cream. Has not noticed a difference. Has a history of eczema and wondering if it can affect the vulva. ROS CMM OPERATOR: + continued irritation around clitoris and introitus [...] eczema. Trial clobetasol. 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 Weaning regimen reviewed. - Follow up in 2-3 weeks or sooner. If not resolved, consider biopsy of vulva. Elijah Lyman APRN.CNP Medical Decision Making: Problems: Low: Acute, uncomplicated illness or injury Data: Unique test result(s) reviewed: 1 Risk: Low: Low risk from testing/treatment Moderate: Drug management Medical Decision Making Level: 3 - Low documented in this encounterK[facility]09-03-2024 NoteHNO ID: [id number] Author: MAIA LUDWIG MD Service: ? Author Type: Physician Type: Progress Notes Filed: 03/24/2024 09:34 Note Text: Chery Mckeon is a 23 year old female who presented for director cost ultrasound today. Encounter Diagnosis ICD-10-CM 1. Dyspareunia in female N94.10 Please see report under imaging tab. Maia Ludwig MD March 24, 2024 9:32 [facility]09-03-2024 History of Present illness Narrative * Maia Ludwig MD - 03/24/2024 9:32 AM EDT Chery Mckeon is a 23 year old female who presented for director cost ultrasound today. Encounter Diagnosis ICD-10-CM 1. Dyspareunia in female N94.10 Please see report under imaging tab. Maia Ludwig MD March 24, 2024 9:32 AM documented in this encounterKet[facility]08-21-2024 NoteHNO ID: [id number] Author: ELIJAH LYMAN APRN.CNP Service: ? Author Type: Nurse Practitioner Type: Progress Notes Filed: 03/11/2024 08:17 Note Text: Audiology Technician offered: Patient declines. Chery Mckeon is a [...] OB History No obstetric history on file. Residential Service Technician History LMP: Age at Menarche: Age at First : Age at Menopause: Residential Service Technician History Comments: Sexual Activity: No sexual activity [...] incontinence. + dysuria after intercourse Expanded ROS: CMM OPERATOR: + dyspareunia Allergies and current medication updated:Yes EXAM: BP 122/80 Wt 157 lb (71.2kg) LMP 02/28/2024 GENERAL: pleasant, female in no apparent distress HEENT: Normocephalic, atraumatic, mucus membranes moist, and no lesions CHEST: Normal inspiratory effort PELVIC: + erythema to bilateral clitoris, normal Bartholin's glands, urethra, [place]'s glands, no vulvar lesions, no cervical lesions, [...] management Medical Decision Making Level: 4 - [facility]erateL[facility]08-21-2024 History of Present illness Narrative* Elijah Lyman APRN.CNP - 03/11/2024 7:38 AM EDT Audiology Technician offered: Patient declines. Chery Mckeon is a [...] OB History No obstetric history on file. Residential Service Technician History LMP: Age at Menarche: Age at First : Age at Menopause: Residential Service Technician History Comments: Sexual Activity: No sexual activity [...] incontinence. + dysuria after intercourse Expanded ROS: CMM OPERATOR: + dyspareunia Allergies and current medication updated:Yes EXAM: BP 122/80 Wt 157 lb (71.2kg) LMP 02/28/2024 GENERAL: pleasant, female in no apparent distress HEENT: Normocephalic, atraumatic, mucus membranes moist, and no lesions CHEST: Normal inspiratory effort PELVIC: + erythema to bilateral clitoris, normal Bartholin's glands, urethra, [place]'s glands, no vulvar lesions, no cervical lesions, [...] Level: 4 - Moderate documented in this encounterThe [facility] [place] noteNo assessment information availableWACMC Healthcare System Work Phone: Evaluation note* Diagnosis Dyspareunia in female- Primary Screen for STD (sexually transmitted disease) Screening examination for venereal disease Encounter for screening for malignant neoplasm of cervix Screening for malignant neoplasm of the cervix documented in this encounter [facility] [place] [facility]* Diagnosis Dyspareunia in female documented in this encounter [facility] [place] [facility]* Diagnosis Dyspareunia in female- Primary documented in this encounter [facility] [place] [facility]* Diagnosis Dyspareunia in female documented in this encounter [facility] CampusProgress note Author Maia Gan [facility] Note Date/Time February 09, 2025 11:4 3am [facility] [address] [place] [address], [address] [place] [address] OFFICE VISIT Date of Service: 02/09/25 MR#: [id number] Acct: [id number] Name: CHERY MCKEON Rep #: [id number] : 2000 Provider: Dr. Willian Gan MD Age/Sex: 24/F [place] [facility] [place]: Signed Intake Vital Signs 12/21/24 15:20 01/15/25 14:30 02/09/25 10:58 Height 5 ft 5 in 5 ft 5 in 5 ft 5 in Weight: 173 lb 2 oz BMI 28.8 BP 129/83 H Intake Visit Reasons: 22 wk ob Life Management Teacher Required: No Is patient in pain?: No [...] Rx promethazine 25 mg rectal 25 mg WV Q4-6H PRN nausea an d 02/09/25 02/09/25 Rx suppository vomiting #12 ea Last Menstrual Period: 09/16/24 Zika: Zika virus screening: Negative : No PFSH PFSH Surgical History Cataldo teeth removed S/P cholecystectomy Family History Grandfather [...] 1-2 times per week duration: 15-30 minutes/day guy/temple: Christianity seatbelt use: always do you feel safe at home: Yes 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 Hx Para [...] 60 tabs 6RF Refilled promethazine 25 mg WV Q4-6H PRN 12 ea 6RF nausea and vomiting 02/09/25 1143 <Electronically signed by Maia helton MD> Date _ Maia Gan MD Cosigner Signature: Date (if applicable) CC: ~ [facility] Work Phone: Progress note Author Rita Damon [facility] Note Date/Time May 03, 2025 9 :52am [facility] [address], [address] [place] [address] OFFICE VISIT Date of Service: 05/03/25 MR#: [id number] Acct: [id number] Name: JOCELYNNJOYCECHERY TONY Rep #: [id number] : 2000 Provider: Dr. Lydia Rivas DO Age/Sex: 24/F [place] [facility] Status: Signed Intake Vital Signs 03/11/25 15:18 04/22/25 15:56 05/03/25 09:28 05/03/25 09:28 Height 5 ft 5 in 5 ft 5 in 5 ft 5 in 5 ft 5 in Weight: 182 lb BMI 30.2 BP 118/81 H Intake Visit Reasons: 32 WK OB Life Management Teacher Required: No Is patient in pain?: No [...] Negative : No PFSH PFSH Surgical History Cataldo teeth removed S/P cholecystectomy Family History Grandfather Prostate cancer Grandmother Colon cancer CVA (cerebral vascular accident) Grandmother Dementia Father Diabetes Myocardial infarction Skin cancer Mother Heart disease Thyroid disorder Social History adopted: No household members: spouse housing: house current occupational status: employed current occupation: [employer] current occupational exposures/hazards: No pets and animals: [...] 1-2 times per week duration: 15-30 minutes/day guy/temple: Christianity seatbelt use: always do you feel safe at home: Yes 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 Hx Para [...] Symptoms of Preeclampsia, Infant Feeding No , [place] Education and Family Medical Leave or Disability [...] POC Urinalysis 2 Dip (Clinic) Today 05/03/25 9866 <Electronically signed by Rita WINN Date _ Rita Rivas DO Cosigner Signature: Date (if applicable) CC: ~ [facility] Work Phone: Reason for referral (narrative)* Diagnostic Procedure Only (Routine) - Authorized Specialty Diagnoses / Procedures Referred By Contac t Referred To Contact [facility] Diagnoses Dyspareunia in female Procedures PELVIC US I US PELVIC NONOBSTETRIC REAL-TIME IMAGE COMPLETE Elijah Lyman APRN.CNP [address] [place] [place] [address] [facility] [place] [address] Referral ID Status Reason Start Date Expiration Date Visits Requested Visits Authorized [id number] Authorized Auto-Generat ed Referral 03/11/2024 03/11/2025 1 1 [facility] for referral (narrative)No reason for referral information availableChapman Medical Center Work Phone: Reason for visit Narrative* Diagnostic Procedure Only (Routine) - Closed Specialty Diagnoses / Procedures Referred By Contac t Referred To Contact [facility] Diagnoses Dyspareunia in female Procedures PELVIC US I US PELVIC NONOBSTETRIC REAL-TIME IMAGE COMPLETE Elijah Lyman APRN.CNP [address] 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 No November 04 4:30pm Chief Complaint and [...] 31, 2025 8:57am Nausea and vomiting during [facility] 2024 8:57am March 31, 2025 8:57am Supervision of high-risk Septe mb2024 8:57am UTI in March 31, 2025 8:57am 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, 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 Eczema April 07, 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, 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 Nausea and vomiting during [facility] 2024 12:48pm April 07, 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 Supervision of high-risk Septe [facility] 2024 12:48pm UTI in April 07, [...] 31, 2025 8:57am Nausea and vomiting during [facility]2024 8:57am March 31, 2025 8:57am Supervision of high-risk Eulogio [facility] 2024 8:57am UTI in March 31, [...] section and content) DATE CREATED AUTHOR 01/29/2018 [facility] DATE CREATED AUTHOR AUTHOR'S ORGANIZ ATION 04/25/2019 [facility] DATE CREATED AUTHOR AUTHOR'S ORGANIZ ATION 04/25/2019 [facility] DATE CREATED AUTHOR AUTHOR'S ORGANIZ ATION 03/30/2024 [facility] DATE CREATED AUTHOR AUTHOR'S ORGANIZ ATION 06/16/2024 [facility] DATE CREATED AUTHOR AUTHOR'S ORGANIZ ATION 02/20/2025 [facility] DATE CREATED AUTHOR AUTHOR'S ORGANIZ ATION 06/02/2025 [facility] Care Teams (unrecognized sec tion and [...] 2024 End: November 03, 2024 Mechelle Francois OIL AND GAS SPECIALIST, OIL AND GAS SPECIALIST-C Attending Provider Active Start: November 03, 2024 [...] 2024 End: November 03, 2024 Mechelle Francois OIL AND GAS SPECIALIST, OIL AND GAS SPECIALIST-C Attending Provider Active Start: November 03, 2024 [...] End: March 31, 2025 Mechelle Francois NP, OIL AND GAS SPECIALIST-C Attending Provider Active Start: March 31, 2025 [...] End: March 31, 2025 Mechelle Francois NP, OIL AND GAS SPECIALIST-C Attending physician Active Start: March 31, 2025 End: March 31, 2025 Team Status: Active Member Role/Relationship Status Dates Anna Marie Sales PA, PA Primary care physician Active Start: March 31, 2025 Mechelle Francois OIL AND GAS SPECIALIST, OIL AND GAS SPECIALIST-C Attending physician Active Start: March 31, 2025 Mechelle Francois OIL AND GAS SPECIALIST, OIL AND GAS SPECIALIST-C Referring Provider Active Start: March 31, 2025 [...] 2025 End: April 07, 2025 Mechelle Francois OIL AND GAS SPECIALIST, OIL AND GAS SPECIALIST-C Attending physician Active Start: April 07, 2025 End: April 07, 2025 Team Status: Inactive Member Role/Relationship Status Dates Anna Marie Sales PA, PA Primary care physician Active Start: March 31, 2025 End: March 31, 2025 Mechelle Francois OIL AND GAS SPECIALIST, OIL AND GAS SPECIALIST-C Attending physician Active Start: March 31, 2025 End: March 31, 2025 Mechelle Francois OIL AND GAS SPECIALIST, OIL AND GAS SPECIALIST-C Referring Provider Active Start: March 31, 2025 [...] Active Start: April 20, 2025 Mechelle Francois OIL AND GAS SPECIALIST, OIL AND GAS SPECIALIST-C Attending physician Active Start: April 20, 2025 Mechelle Francois OIL AND GAS SPECIALIST, OIL AND GAS SPECIALIST-C Referring Provider Active Start: April 20, 2025 [...] 2025 End: March 31, 2025 Mechelle Francois OIL AND GAS SPECIALIST, OIL AND GAS SPECIALIST-C Attending physician Active Start: March 31, 2025 End: March 31, 2025 Team Status: Inactive Member Role/Relationship Status Dates Anna Marie GOMEZ PA Primary care physician Active Start: March 31, 2025 End: March 31, 2025 Mechelle Francois OIL AND GAS SPECIALIST, OIL AND GAS SPECIALIST-C Attending physician Active Start: March 31, 2025 End: March 31, 2025 Mechelle Francois OIL AND GAS SPECIALIST, OIL AND GAS SPECIALIST-C Referring Provider Active Start: March 31, 2025 [...] End: April 07, 2025 Mechelle Francois NP, OIL AND GAS SPECIALIST-C Attending physician Active Start: April 07, 2025 End: April 07, 2025 Team Status: Active Member Role/Relationship Status Dates Anna Marie GOMEZ PA Primary care physician Active Start: April 20, 2025 Mechelle Francois OIL AND GAS SPECIALIST, OIL AND GAS SPECIALIST-C Attending physician Active Start: April 20, 2025 Mechelle Francois OIL AND GAS SPECIALIST, OIL AND GAS SPECIALIST-C Referring Provider Active Start: April 20, 2025 [...] Team Status: Inactive Member Role/Relationship Status Dates Annam Arie Sales PA, PA Primary care physician Active [...] 2025 End: March 31, 2025 Mechelle Francois OIL AND GAS SPECIALIST, OIL AND GAS SPECIALIST-C Attending physician Active Start: March 31, 2025 End: March 31, 2025 Team Status: Inactive Member Role/Relationship Status Dates PATRICIA Lizarraga Primary care physician Active Start: March 31, 2025 End: March 31, 2025 Mechelle Francois OIL AND GAS SPECIALIST, OIL AND GAS SPECIALIST-C Attending physician Active Start: March 31, 2025 End: March 31, 2025 Mechelle Francois OIL AND GAS SPECIALIST, OIL AND GAS SPECIALIST-C Referring Provider Active Start: March 31, 2025 [...] 2025 End: April 07, 2025 Mechelle Francois OIL AND GAS SPECIALIST, OIL AND GAS SPECIALIST-C Attending physician Active Start: April 07, 2025 End: April 07, 2025 Team Status: Inactive Member Role/Relationship Status Dates PATRICIA Lizarraga Primary care physician Active Start: April 20, 2025 End: April 20, 2025 Mechelle Francois OIL AND GAS SPECIALIST, OIL AND GAS SPECIALIST-C Attending physician Active Start: April 20, 2025 End: April 20, 2025 Mechelle Francois OIL AND GAS SPECIALIST, OIL AND GAS SPECIALIST-C Referring Provider Active Start: April 20, 2025 [...] or prosecute any alcohol or drug abuse patient.[facility] the event this information is protected by the Federal Confidentiality of Alcohol and Drug Abuse Patient Records regulations: The Federal rules restrict any use of the information to criminally investigate or prosecute any alcohol or drug abuse patient.[facility] CampusIn the event this information is protected by the Federal Confidentiality of Alcohol and Drug Abuse Patient Records regulations: The Federal rules restrict any use of the information to criminally investigate or prosecute any alcohol or drug abuse patient.[facility] Campus[facility] the event this information is protected by the Federal Confidentiality of Alcohol and Drug Abuse Patient Records regulations: The Federal rules restrict any use of the information to criminally investigate or prosecute any alcohol or drug abuse patient.[facility] Reason for Visit (unrecogniz ed section and [...] BE BASED ON THE PRIMARY CLINICAL RECORDS. [employer] [facility]. provides no warranty or guarantee of the accuracy or completeness of information in this document.
--- NOTE | 2025-06-11 06:16 | HP.PCM.OB_ITS ---
HPI - General General Date of Admission: 06/11/25 Chief Complaint: ROM HPI Narrative CHERY MCKEON, is a 24 F who presented to triage with spontaneous rupture of membranes which was confirmed. She is GBS unknown with a rapid swab pending. was complicated by yesenia's, recurrent UTIs, and abnormal glucose testing. Maternal Data Information JACI Calculator Estimated Delivery Date Method Current WG Current Estimate 07/01/25 Ultrasound #1 37w 1d Other Estimates 06/23/25 LMP (Certain) 38w 2d [facility] Medical History (Updated 06/11/25 @ 06:[address] Bety Cuevas, DO) Yesenia's thyroiditis Gestational diabetes Home Medications ?Medication ?Instructions ?Recorded ?Last Taken ?Type loratadine 10 mg tablet (Allergy 10 mg PO DAILY 06/10/25 History Relief (loratadine)) docosahexaenoic acid 200 mg 1 mg PO DAILY 11/03/24 History capsule ( DHA) levothyroxine 25 mcg tablet 50 mcg PO QDAY 11/19/24 History (Levo-T) famotidine 20 mg tablet (Pepcid) 20 mg PO BID #60 tabs 03/11/25 06/10/25 Rx cephalexin 500 mg capsule 500 mg PO DAILY #30 caps 06/10/25 Rx blood sugar diagnostic (Blood #120 ea 04/21/25 Unknown Rx Glucose Test strips) blood-glucose meter #1 ea 04/21/25 Unknown Rx lancets 30 gauge (Droplet Lancets) #200 ea 04/21/25 Un known Rx breast pump #1 ea 04/22/25 Unknown Rx Allergy/AdvReac Type Severity Reaction Status Date / Time No Known Allergies Allergy Verified 06/11/25 04:59 Family History Grandfather Prostate cancer Grandmother Colon cancer CVA (cerebral vascular accident) Grandmother Dementia Father Diabetes Myocardial infarction Skin cancer Mother Heart disease Thyroid disorder Surgical History [place] teeth removed S/P cholecystectomy Social History adopted: No household members: spouse housing: house current occupational status: employed current occupation: [employer] current occupational exposures/hazards: No pets and animals: No history of recent travel: Yes ([place] 2024, [place] August 2024) out of state: Yes out of country: No sexually active: No Smoking Status: Never smoker alcohol intake: current alcohol intake frequency: holidays/special occasions only details: Not while substance use type: does not use well-balanced diet: daily or most days caffeine: Yes Type: coffee eating out: 1-3 times/week during the past year weight has: increased > 10 lbs what type of physical activity do you participate in: walking frequency: 1-2 times per week duration: 15-30 minutes/day guy/uatsdin: [employer] seatbelt use: always do you feel safe at home: Yes 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 Hx Para 0 Spontaneous abortions 0 Hx # Term Pregnancies Ectopic pregnancies Hx # Pregnancies Multiple births # of living children Visit Details Expected Delivery Route/Plan Labor Preferences- CB/BF classes: @PPC labor support person: Ervin labor intervention preferences: [] pain management options preferred: epidural if requested cut cord/dad catch: maybe : yes PP control planned: [] discussed possible routes of delivery and associated risks: [] special requests: [] Plans Covid status: [] Flu vaccine: [] Tdap vaccine: given Rhogam: NA LARC form signed: yes movement and labor precautions reviewed. Problem list reviewed and updated with the most current plan of care details and appropriate orders placed. Relevant counseling for the gestational age provided. Continue routine care and follow up unless otherwise noted in visit notes/problem list details OB Flowsheet Initial Weight: 170 lb Date -?-?-?-?-?-?-?-?-?-?-?-?- EGA Weight BP Urine Prot -?-?-?-?-?-?-?-?-?-?-?-?- Glucose FHR FuHt Pres Dilation -?-?-?-?-?-?-?-?-?-?-?-?- Effaced St Visit Note 11/19/24 -?-?-?-?-?-?-?-?-?-?-?-?- 8w 0d 170 lb 6 oz (+6 oz) 130/86 -?-?-?-?-?-?-?-?-?-?-?-?- 167 -?-?-?-?-?-?-?-?-?-?-?-?- KW- CRL not cons with dates. JACI changed. declines NIPT. PAP done with [facility] reports normal. 12/21/24 -?-?-?-?-?-?-?-?-?-?--?-?- 12w 4d 165 lb (-5 lb) 126/86 Negative -?-?-?-?-?-?-?-?-?-?-?-?- Negative 158 -?-?-?-?-?-?-?-?-?-?-?-?- KW- CRL cons wi th new dates. labs reviewed. no vb/cramping. 5lb weight loss and still having Nausea. IV fluids ordered. anatomy US ordered. 01/15/25 -?-?-?-?-?-?-?-?-?-?-?-?- 16w 1d 171 lb 2 oz (+1 lb 2 oz) 124/85 Negative -?-?-?-?-?-?-?-?-?-?-?-?- Negative 146 -?-?-?-?-?-?-?-?-?-?-?-?- JV- no spotting but does have some cramping and rib pains. she was vomiting 9 times a day and is now finally feeling better. JV- no spotting but does hav e some cramping and rib pains. she was vomiting 9 t imes a day and is now finally feeling better. Check TSH next visit. 02/09/25 -?-?-?-?-?-?-?-?-?-?-?-?- 19w 5d 173 lb 2 oz (+3 lb 2 oz) 129/83 Negative -?-?-?-?-?-?-?-?-?-?-?-?- Negative 145 -?-?-?-?-?-?-?-?-?-?-?-?- SM- no vb lof go od fm discussed US findings 03/11/25 -?-?-?-?-?-?-?-?-?-?-?-?- 24w 0d 175 lb 3 oz (+5 lb 3 oz) 135/86 Negative -?-?-?-?-?-?-?-?-?-?-?-?- Negative 150 24 -?-?-?-?-?-?-?-?-?-?-?-?- KW- NO vb/lof/ct x. good fm. refill on pepcid. TSH labs today-did not get 2 visits ago. cbc and cmp for RUQ pain. had UTI last week just finished atb. LARC today. 04/07/25 -?-?-?-?-?-?-?-?-?-?-?-?- 27w 6d 176 lb 3 oz (+6 lb 3 oz) 117/80 Negative -?-?-?-?-?-?-?-?-?-?-?-?- Negative 158 28 -?-?-?-?-?-?--?-?-?-?-?-?- MH-No VB, LOF. G ood FM. 28 wk labs pending. Start daily keflex 04/22/25 -?-?-?-?-?-?-?-?-?-?-?-?- 30w 0d 179 lb (+9 lb) 119/81 Negative -?-?-?-?-?-?-?-?-?-?-?-?- Negative 140 29 -?-?-?-?-?-?-?-?-?-?-?-?- SM- no vb lof go od fm no regular ctx 05/03/25 -?-?-?--?-?-?-?-?-?-?-?-?- 31w 4d 182 lb (+12 lb) 118/81 Negative -?-?-?-?-?-?-?-?-?-?-?-?- Negative 135 32 -?-?-?-?-?-?-?-?-?-?-?-?- JV- fasting and 2 hr pp are over all normal but she did have 2 levels over the 120 after breakfast. She is moving this week. no lof, vaginal bleeding, or dec fm. 05/20/25 -?-?-?-?-?-?-?-?-?-?-?-?- 34w 0d 188 lb 1 oz (+18 lb 1 oz) 131/83 Negative -?-?-?-?-?-?-?-?-?-?-?-?- Negative 135 32 -?-?-?-?-?-?-?--?-?-?-?-?- SM- no vb lof go od fm no euglar ctx co swelling in her hands 06/01/25 -?-?-?-?-?-?-?-?-?-?-?-?- 35w 5d 186 lb (+16 lb) 121/84 Negative -?-?-?-?-?-?-?-?-?-?-?-?- Negative 145 36 -?-?-?-?-?-?-?-?-?-?-?-?- KW- no vb/lof/ct x. good fm. reviewed growth scan- preferences worksheet given. 06/08/25 -?-?-?-?-?-?-?-?-?-?-?-?- 36w 5d 185 lb 9 oz (+15 lb 9 oz) 125/85 Trace -?-?-?-?-?-?-?-?-?-?-?-?- Negative 141 36 0 -?-?-?-?-?-?-?-?-?-?-?-?- JV- no lof, vagi nal bleeding, or dec fm. gbs collected. NST FHR Rate Baby A Baseline: 150 Variability:: Moderate Accelerations:: 15 x 15 Decelerations:: None NST Reactive:: Yes FHR Category:: Category I Uterine Activity:: q1.5-3 minutes ROS Constitutional Constitutional: Reports systems reviewed and no addt'l complaints, except as documented Vital Signs Vital Signs Vital Signs: 06/11/25 04:57 06/11/25 04:57 06/11/25 04:58 Temperature Temperature Source Pulse Rate 95 93 Respiratory Rate Blood Pressure 132/92 H BP Systolic 132 BP Diastolic 92 Pulse Ox 06/11/25 04:58 06/11/25 04:58 06/11/25 04:58 Temperature Temperature Source Temporal Pulse Rate Respiratory Rate 14 Blood Pressure BP Systolic BP Diastolic Pulse Ox 99 06/11/25 04:58 06/11/25 05:03 06/11/25 05:03 Temperature 97.8 F Temperature Source Pulse Rate 86 Respiratory Rate Blood Pressure BP Systolic BP Diastolic Pulse Ox 100 Weight Weight: 187 lb Body Mass Index (BMI) 31.1 PRE- weight 170 lb PRE- Body Mass Index 28.3 (BMI) Physical Exam Const alert and no apparent distress HEENT normocephalic Head and Scalp: atraumatic Neck full ROM and supple Resp normal respiratory effort GI soft to palpation Inspection: gravid Extremity normal to inspection Labs Labs Labs: Blood Type O POSITIVE Antibody Screen NEGATIVE Hct, (37-47) 32.0 % L Hgb, (12.0-15.0) 11.0 g/dL L Pap Smear Negative Obstetrics Ultrasound Syphilis Total Ab, (Nonreactive) Nonreactive Rubella IgG Antibody, (Nonreactive) REAC Hep Bs Antigen, (Nonreactive) Nonreactive Hepatitis C Antibody, (Nonreactive) Nonreactive Chlamydia DNA (ANIRUDH), (Negative) Negative N.gonorrhoeae DNA (ANIRUDH), (Negative) Negative HIV 1&2 Antibody, (Nonreactive) Nonreactive Glucose 1 Hr 50 gm, (70-140) 158 mg/dL H Gest Glucose Tolerance mg/dL Miscellaneous Test, (.) COMMENT Assessment & Plan (1) Labor and delivery indication for care or intervention: PLAN: Rapid GBS pending, treat w/ PCN if indicated Observe for a few hours, augment if cervix is unchanged Patient undecided on epidural (2) : QUALIFIERS: Weeks of gestation: 36 weeks Qualified Code(s): Z3A.36 - 36 weeks gestation of COMMENT: elects NIPT, low risk/declined carrier testing. anatomy reviewed (3) Abnormal glucose: COMMENT: Could not tolerate 3 hr GTT. Doing QID testing. - has some elevated 2 hr pp as of 31 weeks. will continue testing- overall WNL no diabetes suspected. PLAN: Check BG q4h in latent phase and q1h during active phase of labor (4) UTI in : QUALIFIERS: Trimester: second trimester Qualified Code(s): O23.42 - Unspecified infection of urinary tract in , second trimester COMMENT: at 23 weeks. 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
[2025-06-11 06:24] LABS: Hematocrit 32.0 % (37-47); Hemoglobin 11.0 g/dL (12.0-15.0); Immature Granulocytes Count 0.090 X10^3/uL (0.0-0.0); Mean Corp Hgb Conc 34.4 g/dL (32-36); Mean Corpuscular Volume 83.6 fL (81-99); Mean Platelet Vol. 9.6 fl (6.2-12.0); NRBC Flagged by Analyzer 0 % (0-5); Platelet Count 280 K/mm3 (150-450); RBC Distribution Width CV 13.2 % (11.6-14.6); RBC Distribution Width SD 39.4 fl (35.1-43.9); Red Blood Count 3.83 M/mm3 (4.2-5.4); White Blood Count 12.6 K/mm3 (4.4-11.0)
[2025-06-11 07:09] LABS: Syphilis Antibodies Nonreactive (Nonreactive)
--- NOTE | 2025-06-11 10:10 | PN_ITS ---
Progress Note patient is restin on her left side. no complaints. Her cytotec was given 2 hours ago current tracing: FHT: 125 Moderate variability reactive no decelerations category I tracing [place]: uterine irritability only seen currently reviewed tracing abnormalities since last note: no changes A/P: PROM- plan for nurse to recheck cervix in 2 hours.
[2025-06-11] MEDS: Lactated Ringers 1,000 ML 50 ML IV (12:49)
[2025-06-11] MEDS: Oxytocin 15 Units/NS 250ml 15 UNITS/250 ML IV.SOLN 2 UNITS IV (12:49)
[2025-06-11] MEDS: fentaNYL-bupivacaine (epidural) 100 ML BAG EPIDURAL ×2 (17:04→21:49)
[2025-06-11] MEDS: Lactated Ringers 1,000 ML 200 ML IV ×2 (17:14→22:30)
[2025-06-11] MEDS: 0.9% Saline Lock 10 ML Syringe IV ×2 (21:04→22:24)
[2025-06-11] MEDS: LACTATED RINGERS 500 ML 999 ML IV (21:45)
[2025-06-11] MEDS: DiphenhydrAMINE 50 MG/ML Syringe 25 MG IV (22:24)
--- NOTE | 2025-06-11 23:23 | OB.TRI.HP_ITS ---
HPI - General General Date of Admission: 06/11/25 Chief Complaint: ROM HPI Narrative Introduced myself to patient and her . Pt has progressed to /-1. Benadryl given for cervix starting to swell. Was on Keflex for UTIs with last dose last PM. Has epidural. Will start Ancef as Hanson in place. Had some tachysystole and decelerations with category 2 now resolved with pitocin off. Will restart pitocin slowly and run lower dose overnight. Expect . Maternal Data Information JACI Calculator Estimated Delivery Date Method Current WG Current Estimate 07/01/25 Ultrasound #1 37w 1d Other Estimates 06/23/25 LMP (Certain) 38w 2d [facility] Medical History (Updated 06/11/25 @ 06:[address] Bety Cuevas, DO) Sharad's thyroiditis Gestational diabetes Home Medications ?Medication ?Instructions ?Recorded ?Last Taken ?Type loratadine 10 mg tablet (Allergy 10 mg PO DAILY 06/10/25 History Relief (loratadine)) docosahexaenoic acid 200 mg 1 mg PO DAILY 11/03/24 History capsule ( DHA) levothyroxine 25 mcg tablet 50 mcg PO QDAY 11/19/24 History (Levo-T) famotidine 20 mg tablet (Pepcid) 20 mg PO BID #60 tabs 03/11/25 06/10/25 Rx cephalexin 500 mg capsule 500 mg PO DAILY #30 caps 06/10/25 Rx blood sugar diagnostic (Blood #120 ea 04/21/25 Unknown Rx Glucose Test strips) blood-glucose meter #1 ea 04/21/25 Unknown Rx lancets 30 gauge (Droplet Lancets) #200 ea 04/21/25 Un known Rx breast pump #1 ea 04/22/25 Unknown Rx Allergy/AdvReac Type Severity Reaction Status Date / Time No Known Allergies Allergy Verified 06/11/25 04:59 Family History Grandfather Prostate cancer Grandmother Colon cancer CVA (cerebral vascular accident) Grandmother Dementia Father Diabetes Myocardial infarction Skin cancer Mother Heart disease Thyroid disorder Surgical History [place] teeth removed S/P cholecystectomy Social History adopted: No household members: spouse housing: house current occupational status: employed current occupation: [employer] current occupational exposures/hazards: No pets and animals: No history of recent travel: Yes ([place], [place] 2024) out of state: Yes out of country: No sexually active: No Smoking Status: Never smoker alcohol intake: current alcohol intake frequency: holidays/special occasions only details: Not while substance use type: does not use well-balanced diet: daily or most days caffeine: Yes Type: coffee eating out: 1-3 times/week during the past year weight has: increased > 10 lbs what type of physical activity do you participate in: walking frequency: 1-2 times per week duration: 15-30 minutes/day guy/scientology: Oriental Orthodox seatbelt use: always do you feel safe at home: Yes additional 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 history: : 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 History 1 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 Hx Para 0 Spontaneous abortions 0 Hx # Term Pregnancies Ectopic pregnancies Hx # Pregnancies Multiple births # of living children Visit Details Expected Delivery Route/Plan Labor Preferences- CB/BF classes: @PPC labor support person: Ervin labor intervention preferences: [] pain management options preferred: epidural if requested cut cord/dad catch: maybe : yes PP control planned: [] discussed possible routes of delivery and associated risks: [] special requests: [] Plans Covid status: [] Flu vaccine: [] Tdap vaccine: given Rhogam: NA LARC form signed: yes movement and labor precautions reviewed. Problem list reviewed and updated with the most current plan of care details and appropriate orders placed. Relevant counseling for the gestational age provided. Continue routine care and follow up unless otherwise noted in visit notes/problem list details OB Flowsheet Initial Weight: 170 lb Date -?-?-?-?-?-?-?-?-?-?-?-?- EGA Weight BP Urine Prot -?-?-?-?-?-?-?-?-?-?-?-?- Glucose FHR FuHt Pres Dilation -?-?-?-?-?-?-?-?-?-?-?-?- Effaced St Visit Note 11/19/24 -?-?-?-?-?-?-?-?-?-?-?-?- 8w 0d 170 lb 6 oz (+6 oz) 130/86 -?-?-?-?-?-?-?-?-?-?-?-?- 167 -?-?-?-?-?-?-?-?-?-?-?-?- KW- CRL not cons with dates. JACI changed. declines NIPT. PAP done with [facility] reports normal. 12/21/24 -?-?-?-?-?-?-?-?-?-?-?-?- 12w 4d 165 lb (-5 lb) 126/86 Negative -?-?-?-?-?-?-?-?-?-?-?-?- Negative 158 -?-?-?-?-?-?-?-?-?-?-?-?- KW- CRL cons wi th new dates. labs reviewed. no vb/cramping. 5lb weight loss and still having Nausea. IV fluids ordered. anatomy US ordered. 01/15/25 -?-?-?-?-?-?-?-?-?-?-?-?- 16w 1d 171 lb 2 oz (+1 lb 2 oz) 124/85 Negative -?-?-?-?-?-?-?-?-?-?-?-?- Negative 146 -?-?-?-?-?-?-?-?-?-?-?-?- JV- no spotting but does have some cramping and rib pains. she was vomiting 9 times a day and is now finally feeling better. JV- no spotting but does hav e some cramping and rib pains. she was vomiting 9 times a day and is now finally feeling better. Check TSH next visit. 02/09/25 -?-?-?-?-?-?-?-?-?-?-?-?- 19w 5d 173 lb 2 oz (+3 lb 2 oz) 129/83 Negative -?-?-?-?-?-?-?-?-?-?-?-?- Negative 145 -?-?-?-?-?-?-?-?-?-?-?-?- SM- no vb lof go od fm discussed US findings 03/11/25 -?-?-?-?-?-?-?-?-?-?-?-?- 24w 0d 175 lb 3 oz (+5 lb 3 oz) 135/86 Negative -?-?-?-?-?-?-?-?-?-?-?-?- Negative 150 24 -?-?-?-?-?-?-?-?-?-?-?-?- KW- NO vb/lof/ct x. good fm. refill on pepcid. TSH labs today-did not get 2 visits ago. cbc and cmp for RUQ pain. had UTI last week just finished atb. LARC today. 04/07/25 -?-?-?-?-?-?-?-?-?-?-?-?- 27w 6d 176 lb 3 oz (+6 lb 3 oz) 117/80 Negative -?-?-?-?-?-?-?-?-?-?-?-?- Negative 158 28 -?-?-?-?-?-?-?-?-?-?-?-?- MH-No VB, LOF. G ood FM. 28 wk labs pending. Start daily keflex 04/22/25 -?-?-?-?-?-?-?-?-?-?-?-?- 30w 0d 179 lb (+9 lb) 119/81 Negative -?-?-?-?-?-?-?-?-?-?-?-?- Negative 140 29 -?-?-?-?-?-?-?-?-?-?-?-?- SM- no vb lof go od fm no regular ctx 05/03/25 -?-?-?-?-?-?-?-?-?-?-?-?- 31w 4d 182 lb (+12 lb) 118/81 Negative -?-?-?-?-?-?-?-?-?-?-?-?- Negative 135 32 -?-?-?-?-?-?-?-?-?-?-?-?- JV- fasting and 2 hr pp are over all normal but she did have 2 levels over the 120 after breakfast. She is moving this week. no lof, vaginal bleeding, or dec fm. 05/20/25 -?-?-?-?-?-?-?-?-?-?-?-?- 34w 0d 188 lb 1 oz (+18 lb 1 oz) 131/83 Negative -?-?-?-?-?-?-?-?-?-?-?-?- Negative 135 32 -?-?-?-?-?-?-?-?-?-?-?-?- SM- no vb lof go od fm no euglar ctx co swelling in her hands 06/01/25 -?-?-?-?-?-?-?-?-?-?-?-?- 35w 5d 186 lb (+16 lb) 121/84 Negative -?-?-?-?-?-?-?-?-?-?-?-?- Negative 145 36 -?-?-?-?-?-?-?-?-?-?-?-?- KW- no vb/lof/ct x. good fm. reviewed growth scan- preferences worksheet given. 06/08/25 -?-?-?-?-?-?-?-?-?-?-?-?- 36w 5d 185 lb 9 oz (+15 lb 9 oz) 125/85 Trace -?-?-?-?-?-?-?-?-?-?-?-?- Negative 141 36 0 -?-?-?-?-?-?-?-?-?-?-?-?- JV- no lof, vagi nal bleeding, or dec fm. gbs collected.
--- NOTE | 2025-06-11 23:23 | OB.TRI.NOTE ---
HPI - General General Date of Admission: 06/11/25 Chief Complaint: ROM HPI Narrative Introduced myself to patient and her . Pt has progressed to /-1. Benadryl given for cervix starting to swell. Was on Keflex for UTIs with last dose last PM. Has epidural. Will start Ancef as Hanson in place. Had some tachysystole and decelerations with category 2 now resolved with pitocin off. Will restart pitocin slowly and run lower dose overnight. Expect . Maternal Data Information JACI Calculator Estimated Delivery Date Method Current WG Current Estimate 07/01/25 Ultrasound #1 37w 1d Other Estimates 06/23/25 LMP (Certain) 38w 2d [facility] Medical History (Updated 06/11/25 @ 06:[address] Bety Cuevas, DO) Sharad's thyroiditis Gestational diabetes Home Medications ?Medication ?Instructions ?Recorded ?Last Taken ?Type loratadine 10 mg tablet (Allergy 10 mg PO DAILY 11/05/15 06/10/25 History Relief (loratadine)) docosahexaenoic acid 200 mg 1 mg PO DAILY 11/03/24 06/10/25 History capsule ( DHA) levothyroxine 25 mcg tablet 50 mcg PO QDAY 11/19/24 06/10/25 History (Levo-T) famotidine 20 mg tablet (Pepcid) 20 mg PO BID #60 tabs 03/11/25 06/10/25 Rx cephalexin 500 mg capsule 500 mg PO DAILY #30 caps 04/07/25 06/10/25 Rx blood sugar diagnostic (Blood #120 ea 04/21/25 Unknown Rx Glucose Test strips) blood-glucose meter #1 ea 04/21/25 Unknown Rx lancets 30 gauge (Droplet Lancets) #200 ea 04/21/25 Unknown Rx breast pump #1 ea 04/22/25 Unknown Rx Allergy/AdvReac Type Severity Reaction Status Date / Time No Known Allergies Allergy Verified 06/11/25 04:59 Family History Grandfather Prostate cancer Grandmother Colon cancer CVA (cerebral vascular accident) Grandmother Dementia Father Diabetes Myocardial infarction Skin cancer Mother Heart disease Thyroid disorder Surgical History [place] teeth removed S/P cholecystectomy Social History adopted: No household members: spouse housing: house current occupational status: employed current occupation: [employer] current occupational exposures/hazards: No pets and animals: No history of recent travel: Yes ([place], [place] 2024) out of state: Yes out of country: No sexually active: No Smoking Status: Never smoker alcohol intake: current alcohol intake frequency: holidays/special occasions only details: Not while substance use type: does not use well-balanced diet: daily or most days caffeine: Yes Type: coffee eating out: 1-3 times/week during the past year weight has: increased > 10 lbs what type of physical activity do you participate in: walking frequency: 1-2 times per week duration: 15-30 minutes/day guy/orthodoxy: Rastafari seatbelt use: always do you feel safe at home: Yes 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 Hx Para 0 Spontaneous abortions 0 Hx # Term Pregnancies Ectopic pregnancies Hx # Pregnancies Multiple births # of living children Visit Details Expected Delivery Route/Plan Labor Preferences- CB/BF classes: @PPC labor support person: Ervin labor intervention preferences: [] pain management options preferred: epidural if requested cut cord/dad catch: maybe : yes PP control planned: [] discussed possible routes of delivery and associated risks: [] special requests: [] Plans Covid status: [] Flu vaccine: [] Tdap vaccine: given Rhogam: NA LARC form signed: yes movement and labor precautions reviewed. Problem list reviewed and updated with the most current plan of care details and appropriate orders placed. Relevant counseling for the gestational age provided. Continue routine care and follow up unless otherwise noted in visit notes/problem list details OB Flowsheet Initial Weight: 170 lb Date <del>?</del> EGA Weight BP Urine Prot <del>?</del> Glucose FHR FuHt Pres Dilation <del>?</del> Effaced St Visit Note 11/19/24 <del>?</del> 8w 0d 170 lb 6 oz (+6 oz) 130/86 <del>?</del> 167 <del>?</del> KW- CRL not cons with dates. JACI changed. declines NIPT. PAP done with [facility] reports normal. 12/21/24 <del>?</del> 12w 4d 165 lb (-5 lb) 126/86 Negative <del>?</del> Negative 158 <del>?</del> KW- CRL cons with new dates. labs reviewed. no vb/cramping. 5lb weight loss and still having Nausea. IV fluids ordered. anatomy US ordered. 01/15/25 <del>?</del> 16w 1d 171 lb 2 oz (+1 lb 2 oz) 124/85 Negative <del>?</del> Negative 146 <del>?</del> JV- no spotting but does have some cramping and rib pains. she was vomiting 9 times a day and is now finally feeling better. JV- no spotting but does have some cramping and rib pains. she was vomiting 9 times a day and is now finally feeling better. Check TSH next visit. 02/09/25 <del>?</del> 19w 5d 173 lb 2 oz (+3 lb 2 oz) 129/83 Negative <del>?</del> Negative 145 <del>?</del> SM- no vb lof good fm discussed US findings 03/11/25 <del>?</del> 24w 0d 175 lb 3 oz (+5 lb 3 oz) 135/86 Negative <del>?</del> Negative 150 24 <del>?</del> KW- NO vb/lof/ctx. good fm. refill on pepcid. TSH labs today-did not get 2 visits ago. cbc and cmp for RUQ pain. had UTI last week just finished atb. LARC today. 04/07/25 <del>?</del> 27w 6d 176 lb 3 oz (+6 lb 3 oz) 117/80 Negative <del>?</del> Negative 158 28 <del>?</del> MH-No VB, LOF. Good FM. 28 wk labs pending. Start daily keflex 04/22/25 <del>?</del> 30w 0d 179 lb (+9 lb) 119/81 Negative <del>?</del> Negative 140 29 <del>?</del> SM- no vb lof good fm no regular ctx 05/03/25 <del>?</del> 31w 4d 182 lb (+12 lb) 118/81 Negative <del>?</del> Negative 135 32 <del>?</del> JV- fasting and 2 hr pp are over all normal but she did have 2 levels over the 120 after breakfast. She is moving this week. no lof, vaginal bleeding, or dec fm. 05/20/25 <del>?</del> 34w 0d 188 lb 1 oz (+18 lb 1 oz) 131/83 Negative <del>?</del> Negative 135 32 <del>?</del> SM- no vb lof good fm no euglar ctx co swelling in her hands 06/01/25 <del>?</del> 35w 5d 186 lb (+16 lb) 121/84 Negative <del>?</del> Negative 145 36 <del>?</del> KW- no vb/lof/ctx. good fm. reviewed growth scan- preferences worksheet given. 06/08/25 <del>?</del> 36w 5d 185 lb 9 oz (+15 lb 9 oz) 125/85 Trace <del>?</del> Negative 141 36 0 <del>?</del> JV- no lof, vaginal bleeding, or dec fm. gbs collected.
[2025-06-11] MEDS: Cefazolin 1 GM/50 ML BAG IV (23:32)
[2025-06-12] VITALS (24 sets, daily range): BP systolic 101–156; BP diastolic 57–85; PULSE 61–104; RESP 14–16; TEMP 36.4–36.9; O2SAT 98–100
[2025-06-12] MEDS: 0.9% Saline Lock 10 ML Syringe IV (01:54)
[2025-06-12] MEDS: fentaNYL-bupivacaine (epidural) 100 ML BAG EPIDURAL ×5 (02:44→20:59)
[2025-06-12] MEDS: Lactated Ringers 1,000 ML 200 ML IV ×5 (02:44→21:46)
[2025-06-12] MEDS: Cefazolin 1 GM/50 ML BAG IV ×3 (07:33→23:39)
--- NOTE | 2025-06-12 10:59 | PCM.PN.OB ---
Subjective Subjective Patient still 4 cm but effacement has gone from 70 to 80%. IUPC inserted with excellent contraction pattern noted. Mom and baby tolerating labor well. Pitocin at 14. Continuing pitocin augmentation and monitoring closely. If no progress in the next several hours may need to consider . Now ROM >24 hours from reported ROM but this PM will be 24 hours since rupture of large forebag. Objective Data Objective Data Vital Signs: Vital Signs Temp Pulse Resp BP Pulse Ox 97.8 F 78 14 115/77 99 06/12/25 09:47 06/12/25 09:48 06/12/25 09:47 06/12/25 09:48 06/12/25 09:48 Weight: 187 lb Body Mass Index (BMI) 31.1 Intake & Output: Intake and Output for Last 24 Hours 06/10/25 06/11/25 06/12/25 23:59 23:59 23:59 Intake Total 2577.97 / 2577.97 1985.61 / 1985.61 Output Total 800 / 800 500 / 500 Balance 1777.97 / 1777.97 1485.61 / 1485.61 Lab / Micro Data 06/11/25 06:00 Labs: Laboratory Results - last 24 hr 06/11/25 11:49: POC Glucose 82 06/11/25 16:08: POC Glucose 79 06/11/25 19:20: POC Glucose 116 H 06/11/25 20:29: POC Glucose 74 06/11/25 21:31: POC Glucose 70 L 06/12/25 01:22: POC Glucose 86 06/12/25 05:47: POC Glucose 92 06/12/25 09:35: POC Glucose 82 Micro: Microbiology 06/11/25 06:00 Genital vaginal Group B Streptococcus (PCR) - Final
[2025-06-12] MEDS: DiphenhydrAMINE 50 MG/ML Syringe 25 MG IV (17:59)
[2025-06-12] MEDS: Oxytocin 15 Units/NS 250ml 15 UNITS/250 ML IV.SOLN 2 UNITS IV (19:55)
--- NOTE | 2025-06-12 21:20 | PCM.PN.OB ---
Subjective Subjective Patient now complete and pushing with baby at +2 station with caput. Comfortable with epidural. heart tones are category 1 and no evidence of infection or fever. Expect spontaneous vaginal delivery. Objective Data Objective Data Vital Signs: Vital Signs Temp Pulse Resp BP Pulse Ox 98.3 F 78 16 116/57 L 99 06/12/25 19:20 06/12/25 19:20 06/12/25 19:20 06/12/25 19:20 06/12/25 17:52 Weight: 187 lb Body Mass Index (BMI) 31.1 Intake & Output: Intake and Output for Last 24 Hours 06/10/25 06/11/25 06/12/25 23:59 23:59 23:59 Intake Total 2577.97 / 2577.97 5113.31 / 5113.31 Output Total 800 / 800 2250 / 2250 Balance 1777.97 / 1777.97 2863.31 / 2863.31 Lab / Micro Data 06/11/25 06:00 Labs: Laboratory Results - last 24 hr 06/11/25 21:31: POC Glucose 70 L 06/12/25 01:22: POC Glucose 86 06/12/25 05:47: POC Glucose 92 06/12/25 09:35: POC Glucose 82 06/12/25 13:42: POC Glucose 66 L 06/12/25 14:04: POC Glucose 74 06/12/25 16:37: POC Glucose 70 L 06/12/25 17:54: POC Glucose 69 L 06/12/25 18:34: POC Glucose 75 06/12/25 19:26: POC Glucose 87 Micro: Microbiology 06/11/25 06:00 Genital vaginal Group B Streptococcus (PCR) - Final
[2025-06-13] VITALS (45 sets, daily range): BP systolic 118–150; BP diastolic 65–98; PULSE 68–111; RESP 14–18; TEMP 36.3–37.1; O2SAT 85–100
--- NOTE | 2025-06-13 01:23 | EX.PCM.OBVAG ---
Maternal Data Information JACI Calculator Estimated Delivery Date Method Current WG Current Estimate 07/01/25 Ultrasound #1 37w 3d Other Estimates 06/23/25 LMP (Certain) 38w 4d Vaginal Delivery Maternal Presentation Maternal Presentation: Spontaneous Rupture of Membranes Type of Induction: Pitocin and Cytotec Medical Reason for Induction: Premature Rupture of Membranes Vaginal Delivery Information Procedure Performed: Vacuum Assisted Vaginal Delivery Station at time of placement: +2 Number of vacuum pulls: 4 Number of vacuum pop offs: 0 Surgeon/Practitioner: Alex Best Date of Procedure: 06/13/25 Pre-Procedure Diagnosis: PROM, IUP Post-Procedure Diagnosis: PROM, IUP Type of anesthesia: Epidural Estimated Blood Loss: 250 cc Time of Delivery: 01:04 Findings Description of procedure: Spontaneous vaginal delivery of a viable female infant with Apgars of 8/9 from an occiput anterior presentation with clear amniotic fluid and normal three-vessel placenta. Cord around the neck x 1 loose. No episiotomy. Second-degree midline laceration repaired with 3-0 Rapide suture under epidural. Kiwi vacuum used x 4 gentle pulls from low outlet to assist with delivery of the head after 4 hours of pushing and increasing maternal fatigue. No pop-off's. Delivery physician: Alex Best MD. Presentation: Vertex and WHITNEY Amniotic Membrane Rupture Type: Spontaneous Amniotic Fluid Description: Clear Placental Delivery Description: Spontaneous Placenta Disposition: [facility] Specimen collected: No Cord Vessel Description: 3 Vessels Cord Entanglement: Around neck x 1, loose A Gender: Female (1 minute): 8 (5 minute): 9 Delayed Cord Clamping: Yes Agricultural Aircraft Pilot calender tender: No Post Vaginal Deli Medications given after delivery: IV Pitocin and IM Methergin Episiotomy Description: None Laceration: Midline and 2nd degree Complication Complications: No
[2025-06-13] MEDS: Oxytocin 15 Units/NS 250ml 15 UNITS/250 ML IV.SOLN 83 UNITS IV (01:47)
[2025-06-13] MEDS: Prenatal Vits Tablet 1 TABLET PO (09:38)
--- NOTE | 2025-06-13 11:58 | PCM.PN.OB ---
Subjective Subjective Patient doing well day #0 status post vacuum-assisted spontaneous vaginal delivery. Minimal bleeding reported. Breast-feeding but may need to supplement with donor milk. Objective Data Objective Data Vital Signs: Vital Signs Temp Pulse Resp BP Pulse Ox O2 Del Method 97.5 F L 77 16 134/91 H 99 Room Air 06/13/25 11:40 06/13/25 03:18 06/13/25 11:40 06/13/25 11:40 06/13/25 11:40 06/13/25 11:40 Oxygen Delivery Method Room Air Weight: 187 lb Body Mass Index (BMI) 31.1 Intake & Output: Intake and Output for Last 24 Hours 06/11/25 06/12/25 06/13/25 23:59 23:59 23:59 Intake Total 2577.97 / 2577.97 6109.98 / 6109.98 1174.96 / 1174.96 Output Total 800 / 800 2950 / 2950 1750 / 1750 Balance 1777.97 / 1777.97 3159.98 / 3159.98 -575.04 / -575.04 Lab / Micro Data 06/11/25 06:00 Labs: Laboratory Results - last 24 hr 06/12/25 13:42: POC Glucose 66 L 06/12/25 14:04: POC Glucose 74 06/12/25 16:37: POC Glucose 70 L 06/12/25 17:54: POC Glucose 69 L 06/12/25 18:34: POC Glucose 75 06/12/25 19:26: POC Glucose 87 06/12/25 21:42: POC Glucose 67 L 06/12/25 22:43: POC Glucose 77 06/12/25 23:45: POC Glucose 67 L 06/13/25 01:36: POC Glucose 84 Micro: Microbiology 06/11/25 06:00 Genital vaginal Group B Streptococcus (PCR) - Final Assessment & Plan (1) Spontaneous vaginal delivery: (2) Vacuum-assisted vaginal delivery: PLAN: Doing well day of delivery. Continuing present care.
[2025-06-13] MEDS: Senna/Docusate Sodium 1 Tablet PO (21:48)
[2025-06-14] VITALS: BP 120/74; PULSE 62; RESP 16; TEMP 36.6; O2SAT 98
[2025-06-14 08:25] VITALS: BP 133/98; PULSE 61; RESP 16; TEMP 36.3; O2SAT 100
[2025-06-14] MEDS: Prenatal Vits Tablet 1 TABLET PO (10:55)
--- NOTE | 2025-06-14 12:04 | PN.OBGYN_ITS ---
Subjective Subjective PPD#1 Doing well. Tolerating PO, ambulating without issue, voiding spontaneously. Some discomfort where laceration is. No headache, vision changes, chest pain, shortness of breath, RUQ pain. Had a rough night in terms of sleep. Working with . Objective Data Objective Data Vital Signs: Vital Signs Temp Pulse Resp BP Pulse Ox O2 Del Method 97.3 F L 61 16 133/98 H 100 Room Air 06/14/25 08:25 06/14/25 08:25 06/14/25 08:25 06/14/25 08:25 06/14/25 08:25 06/14/25 08:25 Oxygen Delivery Method Room Air Weight: 187 lb Body Mass Index (BMI) 31.1 Intake & Output: Intake and Output for Last 24 Hours 06/12/25 06/13/25 06/14/25 23:59 23:59 23:59 Intake Total 6109.98 / 6109.98 1174.96 / 1174.96 Output Total 2950 / 2950 1750 / 1750 Balance 3159.98 / 3159.98 -575.04 / -575.04 Lab / Micro Data 06/11/25 06:00 Labs: Laboratory Results - last 24 hr 06/14/25 05:20: POC Glucose 65 L Micro: Microbiology 06/11/25 Unknown Genital vaginal Group B Streptococcus Culture - Final Group B Beta Streptococcus is not isolated. 06/11/25 06:00 Genital vaginal Group B Streptococcus (PCR) - Final Physical Exam Const alert and no apparent distress HEENT normocephalic Neck full ROM General: normal visual inspection Chest inspection of chest normal and inspection of breasts normal Resp Effort and Inspection: able to speak in complete sentences and symmetric chest movement GI soft to palpation Bimanual Exam - Vag & Uterus: other uterus firm below umbilicus ; Negative for uterus tender Assessment & Plan (1) care following vaginal delivery: PLAN: s/p VAVD PPD #1 1. routine post delivery care 2. breast feeding- support given, supplementing with formula 3. rh positive 4. rubella immune Patient desires more time to work with , anticipate d/c tomorrow (2) Gestational hypertension: QUALIFIERS: Trimester: unspecified trimester Qualified Code(s): O 13.9 - Gestational [-induced] hypertension without significant proteinuria, unspecified trimester PLAN: Met criteria due to mild range BP > 4 hours apart during admission Consider CMP if persistently elevated Asymptomatic
[2025-06-14 14:45] VITALS: BP 137/86; PULSE 64; RESP 18; TEMP 36.3; O2SAT 99
--- NOTE | 2025-06-14 15:03 | CASEMGMT ---
Social Work Assessment Labor and Delivery Unit Patient Address:[id number] [place] [address] [place] [address] Phone number: [phone] Date of Referral: 06/14/25 Time of Referral:? [id number] Referred By: Dr. Cuevas Date of Intervention: ??06/14/25 Time of Intervention:? 1329 Reason for Referral:? anxiety Sw completed chart review and acknowledge social work consult. Sw presented to bedside and introduced self to mother of baby, ARNIE- Cindi and father of baby, NALLELY- Elmo. Sw explained reason for sw involvement and completed psychosocial assessment. History obtained from: medical records, MOB and FOB Household composition: Currently residing in the home is MOB, FOB, and baby when ready for discharge. MOB stated that they recently moved in with her parents. MOB stated that they wanted to be closer to the hospital and closer to FOB's work when they had the baby. MOB stated they will also be able to start saving some money and look for a bigger house. MOB denies any housing concerns, stating that their house is safe and secure. Patient's parent/guardian status:? ?MOB and FOChandan met while they were both attending college through mutual friends. NO problems reported with domestic violence or intimate partner violence. baby is first baby for both parents. Medical History: ?ARNIE is 24 year old female who is 1, para 0- now 1 following labor and delivery of . ARNIE received routine care during with [place]. ARNIE presented to hospital and delivered baby on 06/13/25 at 37 weeks gestation via vaginal delivery. Baby girl, named Michelle, was born weighing 6lbs 1 oz and had apgars of 8 and 9 at one and five minutes of life. ARNIE states that her labor was really long and she ended up pushing for four hours. ARNIE states that it was difficult and challenging but she was really scared to have a . ARNIE is doing a combination of bottle feeding and breast feeding with baby. Baby will be followed by Dr. Sales for pediatric care and follow up. Educational Status:? Both parents obtained college degrees. NO problems with reading, learning or comprehension. Financial Status: NALLELY is gainfully employed outside of the home. He works in manager financial planning at [employer]. ARNIE is not working at this time, she is going to be a stay at home mom for a couple of years Supplies:?? All necessary baby supplies obtained including: car seat, safe sleep space, clothes, diapers and wipes. Childcare/Caregiver(s): ARNIE will be the primary caregiver to baby along with FOChandan and her parents ? Transportation:?? Both parents have their drivers license and reliable means of transportation, no barriers. Programs/Agencies Involved: ??Parents are connected to Medicaid for insurance, [facility] and utilized [facility] in [place] to help them obtain baby items throughout their . ? Children Services/Legal Issues:??No history of children services involvement, no issues or concerns warranting referral to be made at this time. ? Behavioral Health Issues: ??Mental Health History:?NALLELY denies mental health history. ARNIE reports to having a history of anxiety when she was in college due to some isolated issues with her family, but reports that those have resolved and no longer something that she struggles with. ARNIE states that she has never required medication to manage her mental health and has never been connected to a mental health support person. ? Substance Use History:??Parents deny substance use prior to and during . Family History:??Parents deny family history of addiction or significant mental health history. ??? Drug Screens: ??No drug screens observed while completing chart review. Family/Social Stressors:? No stressors identified by parents at this time. Nursing staff informed carlos that ARNIE was observed to be anxious at bedside. Support Systems: ARNIE states that FOB and both sets of grandparents are their biggest supports at this time. Depression/Shaken Baby/Safe Sleeping:?Carlos educated parents on signs and symptoms of baby blues and mood and anxiety disorders to be mindful of going into this period. ARNIE states that she has a bachelors in Social Work and they took the classes so they have heard these terms and are familiar with what to be on the lookout for. Carlos asked ARNIE if she has felt overly anxious since she has delivered baby. ARNIE stated that she does not feel that she is more anxious than any first time mom would be. Carlos explained to ARNIE that there are is some level of anxiety that is to be expected for first time mom's. Carlos educated MOB and FOB on the difference between what is normal anxiety at this time and when it would be time to talk to her OBGYN if her anxiety does not dissipate or if it were to intensify. MOB and FOB expressed understanding. FOB reported that if MOB were to struggle with any symptoms he would be able to recognize that and he would know how top help and support her. MOB states that because they are currently residing with her parents, he mother will also be a good support person when it comes to this as well. Sw expressed importance of safe sleep inside and outside of the bedroom. Sw educated MOB on always placing baby in bedside bassinet and not sleeping with baby in bed with her. Sw explained that baby's bassinet should be free of any blankets, pillows or stuffed animals. And baby should be sleeping in a onsie and a sleep sack/ swaddle sack for sleep. MOB expressed understanding. Sw discouraged sleeping with baby on a couch or in a reclining chair explaining that sleep accidents also happen in those areas as well. Sw educated MOB on shaken baby prevention. MOB expressed understanding. ASSESSMENT:? MOB and baby admitted following labor and delivery of . MOB with history of anxiety. Nursing staff requested sw to meet with MOB to assess any concerns regarding depression. While meeting with MOB, she was observed to be feeding baby. MOB was appeared to be calm and talkative. FOB was initially sleeping when sw presented to bedside, but when baby started to cry he woke up. MOB handed baby off to FOB to help burp her, which he did so delicately and lovingly. Both parents were observed to care for baby lovingly and appropriately. MOB expressed some level of appropriate new mom anxiety, which this was discussed. MOB and FOB educated on what is an appropriate level of new parent anxiety and when it would be considered to be reaching a point of and it would be appropriate for MOB to reach out to her OBGYN or get connected to a mental health professional. Both parents expressed understanding and beneficial resources provided. Both parents were engaging in conversation and appreciative of sw discussion.l PLAN:? No other services requested or indicated. MOB and baby to be discharged when medically ready. Parents were provided literature regarding: signs and symptoms of baby blues and mood and anxiety disorders, Help Me Grow, shaken baby prevention, ABCs of safe sleep and a list of county resources that are available for them should any needs present themselves. Brea Martinez, E COMMERCE STRATEGIST, FISCAL SPECIALIST
[2025-06-14 20:00] VITALS: BP 125/89; PULSE 80; RESP 16; TEMP 36.5; O2SAT 98
[2025-06-15 01:23] VITALS: BP 122/84; PULSE 62; RESP 16; TEMP 36.4; O2SAT 97
--- NOTE | 2025-06-15 08:15 | PN.OBGYN_ITS ---
Subjective Subjective Patient doing well without complaints. Tolerating PO. Ambulating and voiding without difficulty. Feeding well. Denies chest pain, shortness of breath, calf pain/swelling, fevers, chills, lightheadedness. Objective Data Objective Data Vital Signs: Vital Signs Temp Pulse Resp BP Pulse Ox O2 Del Method 97.6 F L 62 16 122/84 H 97 Room Air 06/15/25 01:23 06/15/25 01:23 06/15/25 01:23 06/15/25 01:23 06/15/25 01:23 06/15/25 01:23 Oxygen Delivery Method Room Air Weight: 187 lb Body Mass Index (BMI) 31.1 Intake & Output: Intake and Output for Last 24 Hours 06/13/25 06/14/25 06/15/25 23:59 23:59 23:59 Intake Total 1174.96 / 1174.96 Output Total 1750 / 1750 Balance -575.04 / -575.04 Lab / Micro Data Attestation: I reviewed the patient's lab results. 06/11/25 06:00 Micro: Microbiology 06/11/25 Unknown Genital vaginal Group B Streptococcus Culture - Final Group B Beta Streptococcus is not isolated. 06/11/25 06:00 Genital vaginal Group B Streptococcus (PCR) - Final ROS Constitutional Constitutional: Reports systems reviewed and no addt'l complaints, except as documented; Denies anorexia or headache(s) Cardiovascular Cardiovascular: Reports systems reviewed and no addt'l complaints, except as documented; Denies dizziness, dyspnea, nausea or tachypnea Respiratory/Chest Respiratory/Chest: Reports systems reviewed and no addt'l complaints, except as documented; Denies cough, dyspnea, shortness of breath at rest or tachypnea Gastrointestinal Gastrointestinal: Reports systems reviewed and no addt'l complaints, except as documented; Denies abdominal pain, constipation or nausea Genitourinary Genitourinary: Reports systems reviewed and no addt'l complaints, except as documented; Denies burning urination, difficulty urinating, dysuria, urinary frequency or urinary incontinence Musculoskeletal Musculoskeletal: Reports systems reviewed and no addt'l complaints, except as documented Integumentary Integumentary: Reports systems reviewed and no addt'l complaints, except as documented Neurologic Neurologic: Reports systems reviewed and no addt'l complaints, except as documented; Denies abnormal speech, dizziness or headache(s) Psychiatric Psychiatric: Reports systems reviewed and no addt'l complaints, except as documented Endocrine Endocrinology: Reports systems reviewed and no addt'l complaints, except as documented Hematologic/Lymphatic Hematologic/Lymphatic: Reports systems reviewed and no addt'l complaints, except as documented Physical Exam Const alert, oriented x3 and no apparent distress Neck full ROM Resp normal respiratory effort, normal air movement and no retractions Effort and Inspection: able to speak in complete sentences and symmetric chest movement GI soft to palpation Bladder / Kidney Exam: bladder normal to palpation Uterus Palpation: uterus fundus firm Extremity normal to inspection and full ROM Psych mental status grossly normal, thought process normal and cooperative Assessment & Plan (1) Gestational hypertension: QUALIFIERS: Trimester: unspecified trimester Qualified Code(s): O 13.9 - Gestational [-induced] hypertension without significant proteinuria, unspecified trimester (2) care following vaginal delivery: (3) Vacuum-assisted vaginal delivery: COMMENT: Girl JW PLAN: s/p PPD # 2 1. routine post delivery care 2. breast feeding- support given 3. rh positive 4. rubella immune 5. Discharge home (4) Spontaneous vaginal delivery: (5) Labor and delivery indication for care or intervention: (6) Uterine size-date discrepancy, third trimester: COMMENT: US ordered (7) Abnormal glucose: COMMENT: Could not tolerate 3 hr GTT. Doing QID testing. - has some elevated 2 hr pp as of 31 weeks. will continue testing- overall WNL no diabetes suspected. (8) UTI in : QUALIFIERS: Trimester: second trimester Qualified Code(s): O23.42 - Unspecified infection of urinary tract in , second trimester COMMENT: at 23 weeks. 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
--- NOTE | 2025-06-15 08:18 | PCM.DC.SUM ---
Providers Date of Admission: 06/11/25 Date of Discharge: 06/15/25 Primary Care Physician: PATRICIA Mckoy Reason For Visit: VAGINAL DELIVERY Diagnosis Discharge Diagnosis (1) Gestational hypertension: Status: Acute Code(s): O13.9 - Gestational [-induced] hypertension without significant proteinuria, unspecified trimester Qualifiers: Trimester: unspecified trimester Qualified Code(s): O13.9 - Gestational [-induced] hypertension without significant proteinuria, unspecified trimester (2) care following vaginal delivery: Status: Acute Code(s): Z39.2 - Encounter for routine follow-up (3) Vacuum-assisted vaginal delivery: Status: Acute Code(s): Z37.9 - Outcome of delivery, unspecified Plan: s/p PPD # 2 1. routine post delivery care 2. breast feeding- support given 3. rh positive 4. rubella immune 5. Discharge home (4) Spontaneous vaginal delivery: Status: Acute Code(s): O80 - Encounter for full-term uncomplicated delivery (5) Labor and delivery indication for care or intervention: Status: Acute Code(s): O75.9 - Complication of labor and delivery, unspecified (6) Uterine size-date discrepancy, third trimester: Status: Acute Code(s): O26.843 - Uterine size-date discrepancy, third trimester (7) Abnormal glucose: Status: Acute Code(s): R73.09 - Other abnormal glucose (8) UTI in : Status: Acute Code(s): O23.40 - Unspecified infection of urinary tract in , unspecified trimester Qualifiers: Trimester: second trimester Qualified Code(s): O23.42 - Unspecified infection of urinary tract in , second trimester (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 (10) Nausea and vomiting during : Status: Acute Code(s): O21.9 - Vomiting of , unspecified (11) Supervision of high-risk : Status: Acute Code(s): O09.90 - Supervision of high risk , unspecified, unspecified trimester Qualifiers: Trimester: first trimester Qualified Code(s): O09.91 - Supervision of high risk , unspecified, first trimester (12) : Status: Acute Code(s): Z34.90 - Encounter for supervision of normal , unspecified, unspecified trimester Qualifiers: Weeks of gestation: 36 weeks Qualified Code(s): Z3A.36 - 36 weeks gestation of (13) Eczema: Status: Acute Code(s): L30.9 - Dermatitis, unspecified Qualifiers: Eczema type: unspecified Qualified Code(s): L30.9 - Dermatitis, unspecified (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 thyroiditis Medications at Discharge Home Medications loratadine 10 mg tablet (Allergy Relief (loratadine)) 10 mg PO DAILY 11/05/15 docosahexaenoic acid 200 mg capsule ( DHA) 1 mg PO DAILY 11/03/24 levothyroxine 25 mcg tablet (Levo-T) 50 mcg PO QDAY 11/19/24 famotidine 20 mg tablet (Pepcid) 20 mg PO BID #60 tabs 03/11/25 cephalexin 500 mg capsule 500 mg PO DAILY #30 caps 04/07/25 blood sugar diagnostic (Blood Glucose Test strips) #120 ea 04/21/25 blood-glucose meter #1 ea 04/21/25 lancets 30 gauge (Droplet Lancets) #200 ea 04/21/25 breast pump #1 ea 04/22/25 Hospital Course Procedures None Summary of Care Provided Minutes Spent on Discharge: 30 Physical Exam Const alert, oriented x3 and no apparent distress Neck full ROM Resp normal respiratory effort, normal air movement and no retractions Effort and Inspection: able to speak in complete sentences and symmetric chest movement GI soft to palpation Inspection: incision intact Bladder / Kidney Exam: bladder normal to palpation Uterus Palpation: uterus fundus Extremity normal to inspection and full ROM Psych mental status grossly normal, thought process normal and cooperative Weight / BMI Weight Weight: 187 lb Body Mass Index (BMI) 31.1 PRE- weight 170 lb PRE- Body Mass Index 28.3 (BMI) ABG / Lab / Microbiology Data 06/11/25 06:00 Microbiology: Microbiology 06/11/25 Unknown Genital vaginal Group B Streptococcus Culture - Final Group B Beta Streptococcus is not isolated. 06/11/25 06:00 Genital vaginal Group B Streptococcus (PCR) - Final D/C Instructions May shower in (days): 0 May resume sexual activity in: 4-6 weeks Weight Bearing Status: Full weight bearing Call your doctor if your incision/area has: Continuous Slow Oozing, Sudden Increased Bleeding, Increased Pain/ Swelling, Increased Redness and Foul Smelling Discharge Call your doctor if you observe: Fever of 101 or Higher and Using more than 1 pad per hour (for 2 hours) Suture Line Care: Avoid Pulling/Pushing and Avoid Pinching/Bending Cleanse incision/area with: Soap & Water and Keep Dressing Clean & Dry DC O2, CPAP, BIPAP Needs Home O2 Discharge instructions: No Please Follow Up With: Maia Gan MD When: Call [phone] to make an appointment for an incision check in 1-2 weeks. Meaningful Use Info Meaningful Use Meaningful Use Diagnoses (Choose all that apply): None applicable Discharge Plan Admission Admit Date/Time: 06/11/25 05:40 Attending Provider: Alex Best Primary Care Provider: Anna Marie Sales Discharge Orders/Prescriptions Prescriptions: No Action DHA 200 mg capsule 1 mg PO DAILY levothyroxine [Levo-T] 25 mcg tablet 50 mcg PO QDAY famotidine [Pepcid] 20 mg tablet 20 mg PO BID Qty: 60 6RF cephalexin 500 mg capsule 500 mg PO DAILY Qty: 30 4RF (DME) breast pump Device See Rx Instructions .ROUTE .MEDSUPPLY Qty: 1 0RF Rx Instructions: As directed loratadine [Allergy Relief (loratadine)] 10 MG tablet 10 mg PO DAILY (DME) blood-glucose meter Misc See Rx Instructions .ROUTE .MEDSUPPLY Qty: 1 0RF Rx Instructions: As directed (DME) Blood Glucose Test Strip See Rx Instructions .ROUTE .MEDSUPPLY Qty: 120 6RF Rx Instructions: Check blood sugars Fasting and 2 hours after breakfast, lunch, and dinner. (DME) lancets [Droplet Lancets] 30 gauge misc See Rx Instructions .ROUTE .MEDSUPPLY Qty: 200 6RF Rx Instructions: Check blood sugars fasting and 2 hours after breakfast, lunch, and supper. Referrals / Follow Up: Anna Marie Sales PA [Primary Care Provider, Medical] Disposition Disposition (needs filled in before D/C Order can be placed): Home, Self Care Charges/Coding Multi Select Codes Urinary/Genital Urinary/Genital CPT Codes: No Charge
[2025-06-15 09:00] VITALS: BP 129/88; PULSE 66; RESP 18; TEMP 36.4; O2SAT 98
[2025-06-15] MEDS: GLYCERIN/WITCH HAZEL (TUCKS) MED..PAD 1 EACH TOPICAL (09:26)
[2025-06-15] MEDS: Benzocaine/Lanolin/Aloe Vera 85 GM Spray 1 SPRAY TOPICAL (09:26)
[2025-06-15] MEDS: Prenatal Vits Tablet 1 TABLET PO (10:50)
[2025-06-15] MEDS: SELF ADMINISTRATION OF MEDS 1 EACH NOTE (10:52)
== END 2025-06-15 12:50 | disposition home or self-care (01) | DRG 560 ==
LOC: WPOUT 05:45 → WP 05:45
PROVIDERS: Admitting Provider Student in an Organized Health Care Education/Training Program; PCP Physician Assistant; Referring Provider Student in an Organized Health Care Education/Training Program; Visit Provider Obstetrics & Gynecology
DX: O42.02 Full-term premature rupture of membranes, onset of labor within 24 hours of rupture (principal); Z37.0 Single live birth; O24.420 Gestational diabetes mellitus in childbirth, diet controlled; E06.3 Autoimmune thyroiditis; L30.9 Dermatitis, unspecified; O99.284 Endocrine, nutritional and metabolic diseases complicating childbirth; O13.4 Gestational [pregnancy-induced] hypertension without significant proteinuria, complicating childbirth; O99.72 Diseases of the skin and subcutaneous tissue complicating childbirth; O69.81X0 Labor and delivery complicated by cord around neck, without compression, not applicable or unspecified; O76 Abnormality in fetal heart rate and rhythm complicating labor and delivery; O70.1 Second degree perineal laceration during delivery; Z87.440 Personal history of urinary (tract) infections; Z3A.37 37 weeks gestation of pregnancy; Z79.890 Hormone replacement therapy
CPT/HCPCS: 59025; 59050; 82962; 84112; 85025; 86780; 86850; 86900; 86901; 87081; 87653; 99221; A4216; G0378; J2405

== ENCOUNTER → 2025-06-28 | Outpatient (CLI) | payer MEDICAID, SELFPAY ==
[2025-06-28 16:29] LABS: Squamous Epithelial Cells - UA 0 SEEN /hpf (5-10)
[2025-06-28 17:02] LABS: Color, Urine Yellow (Yellow); Glucose, Dipstick Normal (Normal); Ketone-Dipstick Negative (Negative); Leukocyte Esterase-Dipstick 500 /ul (Negative); Nitrite-Dipstick Negative (Negative); Occult Blood-Urine 250 /ul (Negative); Protein-Dipstick 30 mg/dl (Negative); Specific Gravity, Urine 1.015 (1.002-1.030); Urine Bilirubin Dipstick Negative (Negative)
[2025-06-28 17:09] LABS: Red Blood Cells-Urine 50-100 SEEN /hpf (0-5)
[2025-06-28 17:10] LABS: Mucous, Urine RARE /hpf (<or=2+); Transitional Epithelial - Ur 0-5 SEEN /hpf (0-5)
== END | disposition home or self-care (01) ==
LOC: LAB 16:21
PROVIDERS: PCP Physician Assistant; Referring Provider Nurse Practitioner Women's Health; Visit Provider Nurse Practitioner Women's Health
DX: R39.9 Unspecified symptoms and signs involving the genitourinary system (principal)
CPT/HCPCS: 81001; 87086; 87088

== ENCOUNTER → 2025-07-09 | Outpatient (CLI) | payer MEDICAID, SELFPAY | END | disposition home or self-care (01) | LOC: LABSPEC 16:20 | PROVIDERS: PCP Physician Assistant; Visit Provider Obstetrics & Gynecology | DX: R30.0 Dysuria (principal) | CPT/HCPCS: 87086; 87088 ==